=== PATIENT | male | born 1970 | race Caucasian/White ===

== ENCOUNTER 2023-08-15 08:51 | Inpatient (IN) | payer MEDICARE, MEDICAID, SELFPAY ==
--- NOTE | ~2023-08-15 | XR_ITS ---
EXAMINATION: XR LEFT ANKLE XR LEFT FOOT CLINICAL INFORMATION: Dropped object on foot. COMPARISON: None available. TECHNIQUE: AP, lateral, and oblique views of the left foot were obtained. AP and oblique views of the left ankle were obtained. FINDINGS: Comminuted displaced fracture involving the distal phalanx of the great toe. There is distraction of fracture fragments. There is marked soft tissue swelling. There is possible intra-articular extension medially to the interphalangeal joint. Moderate diffuse soft tissue swelling. Ankle mortise is maintained. The talar dome is intact. Plantar calcaneal spur. XR/XR foot LT min 3V IMPRESSION: Crush injury involving the distal phalanx of the great toe with possible medial intra-articular extension.
--- NOTE | ~2023-08-15 | XR_ITS ---
EXAMINATION: XR LEFT ANKLE XR LEFT FOOT CLINICAL INFORMATION: Dropped object on foot. COMPARISON: None available. TECHNIQUE: AP, lateral, and oblique views of the left foot were obtained. AP and oblique views of the left ankle were obtained. FINDINGS: Comminuted displaced fracture involving the distal phalanx of the great toe. There is distraction of fracture fragments. There is marked soft tissue swelling. There is possible intra-articular extension medially to the interphalangeal joint. Moderate diffuse soft tissue swelling. Ankle mortise is maintained. The talar dome is intact. Plantar calcaneal spur. XR/XR ankle LT min 3V IMPRESSION: Crush injury involving the distal phalanx of the great toe with possible medial intra-articular extension.
[2023-08-15 09:18] VITALS: BP 137/60; PULSE 74; RESP 18; TEMP 36.6; O2SAT 98; BMI 38.6
--- NOTE | 2023-08-15 10:06 | ED_ITS ---
HPI - Extremity Injury (Lower) General Chief Complaint: Extremity Injury, Lower Stated Complaint: L foot/leg inj Time Seen by Provider: 08/15/23 09:25 Source: patient Mode of arrival: ambulatory Limitations: no limitations History of Present Illness HPI Narrative: 52-year-old male with a past medical history of diabetes presents emergency department, with a son, for concerns for an infection in his left great toe. He reports on Tuesday he dropped a heavy object onto the toe and states that the ?bone popped out?. He states he ?put the bone back? but that when he pushes on the toe the bone protrudes through a chronic wound on the distal aspect of the toe. He reports he has a chronic diabetic ulcer at the base of the right great toe as well as a chronic ulcer on the left distal toe. He reports he has had a large amount drainage from the left ulcer as well as swelling. He reports he has been febrile over the weekend and states that pain is beginning to radiate up the calf. Related Data Allergies Allergy/AdvReac Type Severity Reaction Status Date / Time naproxen [From NAPROSYN] AdvReac Severe STOMACH Verified 08/15/23 09:17 UPSET lisinopril [LISINOPRIL] AdvReac Mild COUGH Verified 08/15/23 09:17 SEAFOOD Allergy Unknown ANAPHYLAXIS Uncoded 08/15/23 09:17 Review of Systems 2 Review of Systems: Yes all other systems are reviewed and are negative PMFSH Past Medical History Attestation statement: The following information was validated with the patient. Medical History (Updated 08/15/23 @ 12:52 by Lakia Rice NP) Asthma Severe obesity Mood disorder MAURI (obstructive sleep apnea) Type 2 diabetes mellitus HLD (hyperlipidemia) HTN (hypertension) Social History Social History Smoked in Last 30 Days: Yes Use of substances other than those prescribed or required for medical reasons: Yes Substance Use Type: Marijuana Advance Directives: No Advance Directives Information Provided: Yes Physical Exam 2 Vital Signs: Vital Signs: Last Vital Signs Temp 98.5 F 08/15/23 11:42 Pulse 63 08/15/23 11:42 Resp 18 08/15/23 11:42 BP 100/56 L 08/15/23 11:42 Pulse Ox 97 08/15/23 11:42 O2 Del Method Room Air 08/15/23 09:18 BMI result Body Mass Index 38.6 Nursing notes and vital signs reviewed. GENERAL APPEARANCE: A&0 x 4, generally well appearing, no acute distress HENMT: Normal to inspection, atraumatic, face symmetrical. Normal external ears, nose, and oropharynx clear. EYE: PERRLA, EOM intact, structures appear normal NECK: Supple without lymphadenopathy. No stiffness or restricted ROM. CHEST: Normal to inspection HEART: Normal rate and regular rhythm, normal S1/S2, no M/R/G LUNGS: LS CTA, moving air well. Able to speak in complete sentences. No crackles, wheezes, or rhonchi auscultated ABDOMEN: Soft, nontender, nondistended. Normal bowel sounds noted BACK: No CVAT, no obvious deformity EXTREMITIES: Decreased ROM of the left great toe with erythema, swelling and warmth. [place] clear/purulent discharge from the left distil ulcer on the great toe. Swelling of left calf noted with lymphangitis. 8 mm circular ulcer on base of right great toe. NEUROLOGICAL: Alert and oriented, moving all 4 extremities with equal strength. CN not formally tested but appearing grossly intact. Observed to ambulate with normal gait. Cognition normal SKIN: Warm and dry without any lesions, rash, or visible sores PSYCH: Cooperative, normal affect, normal thought process Course Reevaluation(s) Reevaluation #1: Dr Anthony contacted via tiger text for inpatient admission. DAPHNIE Mon hospitalist, in room to assess pt Medications Administered Discontinued Medications Generic Name Dose Route Start Last Admin Trade Name Freq PRN Reason Stop Dose Admin Ceftriaxone Sodium 2 gm/ 50 mls @ 100 mls/hr 08/15/23 10:11 08/15/23 11:34 Sodium Chloride IV 08/15/23 10:40 Infused ONCE ONE Infusion Vancomycin HCl 2,000 mg in 500 mls @ 250 mls/hr 08/15/23 10:30 08/15/23 11:36 Vancomycin/Ns IV 08/15/23 12:29 250 mls/hr ONCE ONE Administration Oxycodone HCl 10 mg 08/15/23 11:34 08/15/23 11:39 Oxycodone Hcl Immed Release 5 Mg Tablet PO 08/15/23 11:35 10 mg ONCE ONE Administration Medical Decision Making Medical Decision Making MDM Narrative: Old records reviewed for previous imaging, lab studies, ECGs, and notes. Additional HPI obtained from patient's son. Patient was assessed the emergency department with no acute distress or toxicity noted. Patient reports severe pain in the left great toe. Plan for septic workup including blood cultures an x-ray to assess for osteomyelitis as well as acute fracture. Vancomycin and ceftriaxone given. Oxycodone given for pain. Blood work showing evidence of leukocytosis with WBCs 11.9, anemia with H/H 12.5/38.7, no signs of thrombocytopenia. Patient's inflammatory markers elevated with CRP 3.41 and ESR 75. Lactic acid 1.2. X-ray left foot and ankle completed, which I have independently interpreted showing evidence of a crush injury of the great toe. Radiology findings showing a comminuted displaced fracture involving the distal phalanx of the great toe, marked soft tissue swelling, and possible intra-articular extension medially into the interphalangeal joint. Hospitalist, Dr. Anthony, contact her regarding patient's presentation and diagnostics with plan for inpatient admission. Differential Diagnosis Differential Diagnoses: The differential diagnosis associated with the presentation includes But not limited to fracture, dislocation, contusion, strain, sprain, osteomyelitis, sepsis Admission/Observation Consideration of admission/observation: Escalation of care including admission/observation considered Consult Healthcare Provider Management of the patient was discussed with: Hospitalist Lab Data MDM Lab Attestation statement: I reviewed the patient's lab results. 08/15/23 10:30 08/15/23 10:30 Labs: Lab Results 08/15/23 Range/Units 10:30 WBC 11.9 H (4.8-10.8) X10*3/uL RBC 4.51 L (4.60-5.80) X10*6/uL Hgb 12.5 L (14.0-18.0) g/dl Hct 38.7 L (42.0-52.0) % MCV 85.8 (80.0-98.0) fL MCH 27.7 (27.0-33.0) pg MCHC 32.3 (31.0-36.0) g/dl RDW 13.4 (11.0-16.0) % Plt Count 400 (160-400) X10*3/uL MPV 9.0 L (9.4-12.4) fL Immature Gran % (Auto) 0.6 H (0.0-0.4) % Neut % (Auto) 66.3 (45-73) % Lymph % (Auto) 20.9 (20-40) % [place] % (Auto) 8.0 (2-11) % Eos % (Auto) 3.1 (0-4) % Baso % (Auto) 1.1 (0-2) % Lymph # (Auto) 2.5 (1.2-4.9) X10*3/uL [place] # (Auto) 1.0 (0.1-1.2) X10*3/uL Eos # (Auto) 0.4 (0.0-0.4) X10*3/uL Baso # (Auto) 0.1 (0.0-0.2) X10*3/uL Abs Immat Gran (auto) 0.07 H (0.00-0.03) X10*3/uL Absolute Neuts (auto) 7.9 (2.0-8.3) x10*3/uL Absolute Nucleated RBC 0.000 (0.0-0.012) X10*3/uL Nucleated RBC % (auto) 0.0 (0.0-0.2) /100WBC ESR 79 H (0-15) MM/HR Sodium 136 (135-145) mmol/L Potassium 4.0 (3.3-5.1) mmol/L Chloride 103 (96-108) mmol/L Carbon Dioxide 25 (22-29) mmol/L Anion Gap 12 (12-20) BUN 25 H (9-16) mg/dL Creatinine 1.02 (0.5-1.4) mg/dL Estim Creat Clear Calc 106.7 Estimated GFR > 60 Random Glucose 183 H (60-115) mg/dL Lactic Acid 1.2 (0.5-2.0) mmol/L Calcium 9.2 (8.4-10.2) mg/dL C-Reactive Protein 3.41 H (< or = 0.50) mg/dL Independent Interpretation I performed an independent interpretation of an: Plain X-Ray Independent Historian Clinical information obtained from an independent historian. History obtained from or confirmed by: Other (Son) Chronic Conditions Patient?s care impacted by: Diabetes and Hypertension Discharge Plan Discharge Clinical Impression: Cellulitis of great toe, left, Crush injury of left foot Patient Disposition: Admitted As Inpatient
[2023-08-15 10:38] LABS: MANUAL DIFF FLAG NO
[2023-08-15 10:41] LABS: Basophils Absolute Auto 0.1 X10*3/uL (0.0-0.2); Basophils Percent Auto 1.1 % (0-2); Eosinophils Absolute Auto 0.4 X10*3/uL (0.0-0.4); Eosinophils Percent Auto 3.1 % (0-4); Hematocrit 38.7 % (42.0-52.0); Hemoglobin 12.5 g/dl (14.0-18.0); Imm Gran Abs Auto 0.07 X10*3/uL (0.00-0.03); Imm Gran Pct Auto 0.6 % (0.0-0.4); Lymphocytes Absolute Auto 2.5 X10*3/uL (1.2-4.9); Lymphocytes Percent Auto 20.9 % (20-40); Mean Corpuscular HGB Conc 32.3 g/dl (31.0-36.0); Mean Corpuscular Hemoglobin 27.7 pg (27.0-33.0); Mean Corpuscular Volume 85.8 fL (80.0-98.0); Neutrophils Absolute Auto 7.9 x10*3/uL (2.0-8.3); Neutrophils Percent Auto 66.3 % (45-73); Platelet Count 400 X10*3/uL (160-400); Red Blood Count 4.51 X10*6/uL (4.60-5.80); Red Cell Distribution Width 13.4 % (11.0-16.0); White Blood Count 11.9 X10*3/uL (4.8-10.8)
[2023-08-15 10:52] LABS: Lactic Acid 1.2 mmol/L (0.5-2.0)
[2023-08-15 10:54] LABS: Anion Gap 12 (12-20); Blood Urea Nitrogen 25 mg/dL (9-16); C Reactive Protein 3.41 mg/dL (< or = 0.50); Calcium 9.2 mg/dL (8.4-10.2); Carbon Dioxide 25 mmol/L (22-29); Chloride 103 mmol/L (96-108); Creatinine Clr Calc Pharmacy 106.7; Estimated Glomerular Filt Rate > 60; Glucose Random 183 mg/dL (60-115); Sodium 136 mmol/L (135-145)
[2023-08-15] MEDS: cefTRIAXone sodium 2 GM in 0.9 % Sodium Chloride 50 ML IV (11:01)
[2023-08-15 11:21] LABS: Erythrocyte Sedimentation Rate 79 MM/HR (0-15)
[2023-08-15] MEDS: vancomycin/NS 2,000 MG/500 ML PLAST..BAG 250 MG IV (11:36)
[2023-08-15] MEDS: oxyCODONE HCl Immed Release 5 MG TABLET 10 MG PO (11:39)
[2023-08-15 11:42] VITALS: BP 100/56; PULSE 63; RESP 18; TEMP 36.9; O2SAT 97
--- NOTE | 2023-08-15 11:42 | PC.NURSE ---
pt medicated per AUG for 1010 left big toe pain
--- NOTE | 2023-08-15 12:10 | PM.IMHP ---
History of Present Illness Date of Service: 08/15/23 Attending physician on admission: [facility] Chief Complaint: crush injury l great toe 52 year old male with history of insulin dependent type 2 diabetes, htn, hld, mood disorder, asthma, chronic diabetic ulcers of the great toes bilaterally, diabetic polyneuropathy, and mauri compliant with cpap presented to the ER earlier today for evaluation of crush injury to the L great toe sustained on tuesday after dropping a car cylinder directly on the toe. He reports he has had a chronic ulcer to the plantar surface of the L great toe ongoing 2 months and diabetic ulcer to the plantar surface R great toe ongoing about one month. Reports he was seen by pcp about a month ago and prescribed an antibiotic but does not recall the name. Since the injury tuesday, the left great toe has been very swollen, erythematous with open wound draining seropurulent drainage. Bone has been observed to protrude from the wound and the patient manually reduces this. He states the pain is now radiating up the medial aspect of the LLE. In the ER, vitals stable. Mild leukocytosis 11.9, no sepsis. Renal function and lytes normal. Lactic acid 1.2. CRP 3.41, ESR 79. In the ED, received 2g IV ctx, 2g vanco, and 10mg oxycodone. Review of Systems Review of Systems: General: No fevers, malaise, unintentional weight loss HEENT: No blurred vision, diplopia. No sore throat, nasal congestion, rhinorrhea, sinus pain, ear pain Cardiovascular: No chest pain, palpitations, or leg edema Respiratory: No shortness of breath, wheezing, cough GI: No abdominal pain, nausea, vomiting, diarrhea, constipation, melena, hematochezia : No dysuria, hematuria, increased urinary frequency, decreased urinary output MSK: No myalgia, back pain. +crush injury L great toe Neuro: No headaches, weakness, paresthesias Skin: No rashes. +chronic ulcers b/l great toes [facility] Medical History (Updated 08/15/23 @ 12:28 by DAPHNIE Griffin) Asthma Severe obesity Mood disorder MAURI (obstructive sleep apnea) Type 2 diabetes mellitus HLD (hyperlipidemia) HTN (hypertension) Social History Smoked in Last 30 Days: Yes Use of substances other than those prescribed or required for medical reasons: Yes Substance Use Type: Marijuana Advance Directives: No Advance Directives Information Provided: Yes Meds Allergies Allergy/AdvReac Type Severity Reaction Status Date / Time naproxen [From NAPROSYN] AdvReac Severe STOMACH Verified 08/15/23 09:17 UPSET lisinopril [LISINOPRIL] AdvReac Mild COUGH Verified 08/15/23 09:17 SEAFOOD Allergy Unknown ANAPHYLAXIS Uncoded 08/15/23 09:17 Active Medications: Current Medications Acetaminophen (Acetaminophen 325 Mg Tablet) 650 mg PO Q6H PRN PRN Reason: Pain, Mild (Pain Scale 1-3) Heparin Sodium (Porcine) (Heparin Sodium,Porcine 5,000 Unit/Ml Vial) 5,000 unit SUBCUT Q12H RANDALL Vancomycin HCl (Vancomycin/Ns) 2,000 mg in 500 mls @ 250 mls/hr IV ONCE ONE Stop: 08/15/23 12:29 Last Admin: 08/15/23 11:36 Dose: 250 mls/hr Ondansetron HCl (Ondansetron Hcl 4 Mg/2 Ml Vial) 4 mg IVPUSH Q8H PRN PRN Reason: Nausea and Vomiting Pharmacy Consult (Consult Rx Vancomycin Dosing) 1 each MISCELLANE DAILY PRN PRN Reason: Consult order Senna (Sennosides 8.6 Mg Tablet) 17.2 mg PO BEDTIME PRN PRN Reason: Constipation Sodium Chloride (0.9 % Sodium Chloride Flush 3 Ml Syringe) 3 ml IVFLUSH QSHIFT RANDALL Physical Exam Vital Signs and Narrative: Vital Signs: Last Vital Signs Temp 98.5 F 08/15/23 11:42 Pulse 63 08/15/23 11:42 Resp 18 08/15/23 11:42 BP 100/56 L 08/15/23 11:42 Pulse Ox 97 08/15/23 11:42 O2 Del Method Room Air 08/15/23 09:18 BMI result Body Mass Index 38.6 Constitutional - Awake and Alert, No apparent distress Eyes - PERRLA, EOMI Cardiovascular - S1S2, RRR, 1+ edema LLE, 2+ pedal pulses Respiratory - Normal lung expansion, Normal respiratory effort, No respiratory distress, CTA bilaterally Gastrointestinal - NT / ND; +BS; No rebound or guarding Extremities - no calf tenderness bilaterally, no swelling Skin - Warm/Dry. 1cm stage 3 ulceration of the plantar surface of the R great toe with surrounding callous. Open unstageable ulcer plantar surface L great toe with bone exposure about 1.5cm in diamter with purulent drainage and significant surrounding swelling with erythema Neurological - Alert & oriented x3, diminished sensation feet bilaterally Psychological - Appropriate affect R great toe L Great toe L great toe Results Labs 08/15/23 10:30 08/15/23 10:30 Labs: Laboratory Results - last 24 hr 08/15/23 10:30 MCV 85.8 MCH 27.7 MCHC 32.3 RDW 13.4 Plt Count 400 MPV 9.0 L Immature Gran % (Auto) 0.6 H Neut % (Auto) 66.3 Lymph % (Auto) 20.9 [place] % (Auto) 8.0 Eos % (Auto) 3.1 Baso % (Auto) 1.1 Lymph # (Auto) 2.5 [place] # (Auto) 1.0 Eos # (Auto) 0.4 Baso # (Auto) 0.1 Abs Immat Gran (auto) 0.07 H Absolute Neuts (auto) 7.9 Absolute Nucleated RBC 0.000 Nucleated RBC % (auto) 0.0 ESR 79 H Anion Gap 12 Estim Creat Clear Calc 106.7 Estimated GFR > 60 Random Glucose 183 H Lactic Acid 1.2 Calcium 9.2 C-Reactive Protein 3.41 H Imaging Radiologist's Impressions: Impressions Ankle X-Ray 08/15/23 09:40 IMPRESSION: Crush injury involving the distal phalanx of the great toe with possible medial intra-articular extension. Foot X-Ray 08/15/23 09:40 IMPRESSION: Crush injury involving the distal phalanx of the great toe with possible medial intra-articular extension. Assessment and Plan (1) Cellulitis of great toe, left: Status: Acute (2) Crush injury of left foot: Status: Acute Plan 52 year old male with history of insulin dependent type 2 diabetes, htn, hld, mood disorder, asthma, chronic diabetic ulcers of the great toes bilaterally, diabetic polyneuropathy, and mauri compliant with cpap admitted for further management of cellulitis and osteomyelitis L great toe following crush injury #Acute cellulitis L great toe s/p open crush injury in uncontrolled diabetic -likely requires amputation given open crush injury of distal phalynx L great toe -general surgery consultation -IV vanco and zosyn -Mild luekocytosis 11.9, no sepsis. -Follow cbc, cultures #Acute osteomyelitis L great toe -ESR 79, CRP, with open crush injury L great toe -ABX and surgery consult as above #Chronic stage 3 ulcer R great toe and unstageable ulcer L great toe related to uncontrolled type 2 diabetes -abx as above, rn triage consult #Insulin dependent type 2 diabetes -dose adjusted basal insulin -poc glucose, diabetic diet -humalog on ss #HTN -continue home meds #Mild intermittent asthma -no acute exacerbation -albuterol prn #Diabetic polyneuropathy -continue gabapentin #Chronic low back pain -continue home meds #MAURI -compliant with cpap DVT prophylaxis- heparin full code pt requires inpt stay at least 2 midnights for management of acute crush injury and cellulitis L great toe in uncontrolled type 2 diabetic requiring iv abx, expert consultation and probable amputation Quality Stroke Does the patient have a stroke diagnosis?: No VTE Prior VTE?: No VTE Risk Level:: Medical - moderate - high VTE Device Contraindication: Treatment Not Indicated VTE Drug Contraindication: N/A - Med Ordered
--- NOTE | 2023-08-15 12:27 | PHA.PROG ---
Admission Date/Time: Indication: Bone and Joint Weight in k.212 kg Adjusted body weight in Kg: [place] body weight in Kg: Obesity Dosing Indication % IBW: Serum Creatinine - Last 168 Hours 08/15/23 10:30 Creatinine 1.02 Estimated CrCl and GFR - Last 168 Hours 08/15/23 10:30 Estim Creat Clear Calc 106.7 Estimated GFR > 60 Vancomycin Loading Dose: 2000mg x 1 Current Vancomycin Dosing Regimen: 1250mg Q12H Vancomycin Monitoring using AUC goal of 400 - 600 range with trough as surrogate marker: 546 mg/L Date and Time for next Vancomycin Level to be drawn: 08/15 @2100 Pharmacist Comments on Vancomycin Plan: Obese model being used, predicted trough of 16.6 mg/L. Will continue to monitor renal function and adjust Vancomycin dosing will take advantage of [employer] as a clinical decision support tool that uses Bayesian modeling to calculate individual patient's pharmacokinetic parameters and forecast the patient's drug concentration time course with the target goal AUC 24 range of 400 - 600 mg/L/hr.
[2023-08-15 13:00] LABS: Estimated Average Glucose 177 mg/dL; Hemoglobin A1c % 7.8 % (<6.0)
--- NOTE | 2023-08-15 13:29 | PHA.MEDREC ---
Pharmacy Consult ? Medication Reconciliation Pharmacy has completed the medication reconciliation. Spoke to patient and confirmed medication list.
[2023-08-15] MEDS: Heparin Sodium,Porcine 5,000 UNIT/ML VIAL 5000 UNIT SUBCUT (13:54)
[2023-08-15] MEDS: Piperacillin Sodium/Tazobactam 4.5 GM in 0.9 % Sodium Chloride 100 ML IV ×2 (14:14→20:40)
[2023-08-15] MEDS: 0.9 % Sodium Chloride Flush 3 ML SYRINGE IVFLUSH (16:16)
[2023-08-15 16:20] VITALS: BP 140/74; PULSE 68; RESP 18; TEMP 36.5; O2SAT 99
--- NOTE | 2023-08-15 16:51 | P.CONGS_ITS ---
History of Present Illness Consult details Consult date: 08/15/23 Narrative: 52-year-old male referred for toe ulcers. He has a long history of diabetes. He has had this ulcer on the plantar aspect the left big toe for what he describes as may be about 5 months already. He says that this does not heal at all. He has another ulcer on the plantar aspect of the right big toe as well for about 1-2 months. He says that he had been on antibiotics recently as prescribed by his primary care physician without any change in the appearance of his ulcers About 3 days ago, a heavy object fell on his foot left, especially the left big toe. Since then, he has had severe pain and swelling of the entire left foot. He says that the big toe has been a lot more swollen as well. He notes redness of the area. He thought that he may have had some chills at home yesterday. He also has history of neuropathy, obesity and obstructive sleep apnea. Review of Systems 2 Constitutional: Constitutional: Reports chills and Denies fever(s) Cardiovascular: Cardiovascular: Denies chest pain, Denies dyspnea and Denies dyspnea on exertion Respiratory: Respiratory: Denies cough, Denies dyspnea and Denies dyspnea on exertion Comments: Has sleep apnea, uses CPAP Gastrointestinal: Gastrointestinal: Denies hematochezia and Denies change in bowel habits Genitourinary: Genitourinary: Denies hematuria and Denies difficulty urinating Musculoskeletal: Musculoskeletal: Denies back pain and Denies limited range of motion Neurologic: Denies focal weakness and Denies convulsions Psychiatric: Psychiatric: Denies depression and Denies mood swings PMFSH Past Medical History Medical History Ulcer of great toe Asthma Severe obesity Mood disorder MAURI (obstructive sleep apnea) Type 2 diabetes mellitus HLD (hyperlipidemia) HTN (hypertension) Social History Social History Housing: Apartment 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 Tobacco Use Status: Current everyday Tobacco user Tobacco use type: Cigarette Cigarette Packs Per Day: 1 Cigarettes Per Day: 20.0 Smoked in Last 30 Days: Yes Patient Interested in Nicotine Replacement: Yes Patient Given Instructions on How to Stop Smoking: Yes Date Education Initiated: 08/15/23 Second Hand Smoke Exposure: No Use of substances other than those prescribed or required for medical reasons: Yes Substance Use Type: Marijuana Substance Use Frequency: Daily Currently Displaying Signs/Symptoms of Drug Intoxication Withdrawal: No Are you DNR?: No Advance Directives: No Advance Directives Information Provided: Yes Advance Directives on File: No Recently lost weight without trying: No Nutrition Risks: No Nutritional Risk service: No Meds Allergies Allergy/AdvReac Type Severity Reaction Status Date / Time naproxen [From NAPROSYN] AdvReac Severe STOMACH Verified 08/15/23 09:17 UPSET lisinopril [LISINOPRIL] AdvReac Mild COUGH Verified 08/15/23 09:17 SEAFOOD Allergy Unknown ANAPHYLAXIS Uncoded 08/15/23 09:17 Active Medications: Current Medications Acetaminophen (Acetaminophen 325 Mg Tablet) 650 mg PO Q6H PRN PRN Reason: Pain, Mild (Pain Scale 1-3) Dextrose (Dextrose 50 % 25 Gm/50 Ml Syringe) 25 gm IVPUSH Q15M PRN; Protocol PRN Reason: per Hypoglycemia Standing Ord. Glucose (Glucose Gel 15 Gm Gel..Gram.) 15 gm PO Q15M PRN; Protocol PRN Reason: per Hypoglycemia Standing Ord. Heparin Sodium (Porcine) (Heparin Sodium,Porcine 5,000 Unit/Ml Vial) 5,000 unit SUBCUT Q12H [facility] Last Admin: 08/15/23 13:54 Dose: 5,000 unit Piperacillin Sod/Tazobactam (Sod 4.5 gm/ Sodium Chloride) 100 mls @ 200 mls/hr IV Q6H [facility] Last Infusion: 08/15/23 15:03 Dose: Infused Vancomycin HCl 1,250 mg/ (Sodium Chloride) 250 mls @ 166.667 mls/hr IV Q12H [facility] Insulin Human Lispro (Insulin Lispro 100 Unit/Ml 3 Ml Vial) 0 unit SUBCUT QIDACHS [facility]; Protocol Morphine Sulfate (Morphine Sulfate 2 Mg/Ml Cartridge) 2 mg IVPUSH Q4H PRN; Protocol PRN Reason: Pain, Severe (Pain Scale 7-10) Ondansetron HCl (Ondansetron Hcl 4 Mg/2 Ml Vial) 4 mg IVPUSH Q8H PRN PRN Reason: Nausea and Vomiting Oxycodone HCl (Oxycodone Hcl Immed Release 5 Mg Tablet) 5 mg PO Q6H PRN PRN Reason: Pain, Moderate(Pain Scale 4-6) Pharmacy Consult (Consult Rx Vancomycin Dosing) 1 each MISCELLANE DAILY PRN PRN Reason: Consult order Senna (Sennosides 8.6 Mg Tablet) 17.2 mg PO BEDTIME PRN PRN Reason: Constipation Sodium Chloride (0.9 % Sodium Chloride Flush 3 Ml Sy[facility]) [facility] Last Admin: 08/15/23 16:16 Dose: 3 ml Home Medications Medication Instructions Recorded Confirmed Last Taken Type albuterol sulfate 90 mcg/actuation 2 puff inhalation Q4H PRN Wheezing 08/15/23 08/15/23 Unknown History aerosol inhaler (Ventolin HFA) atorvastatin 80 mg tablet 80 mg PO BEDTIME 08/15/23 08/15/23 08/14/23 History baclofen 10 mg tablet 10 mg PO TID 08/15/23 08/15/23 08/14/23 History carvedilol 12.5 mg tablet 12.5 mg PO BIDWM 08/15/23 08/15/23 08/14/23 History cetirizine 10 mg tablet 10 mg PO DAILY 08/15/23 08/15/23 08/14/23 History chlorthalidone 50 mg tablet 50 mg PO QAM 08/15/23 08/15/23 08/14/23 History dulaglutide 4.5 mg/0.5 mL 4.5 mg subcut QWEEK 08/15/23 08/15/23 08/12/23 History subcutaneous pen injector (Trulicity) empagliflozin 25 mg tablet 25 mg PO QAM 08/15/23 08/15/23 08/14/23 History (Jardiance) epinephrine 0.3 mg/0.3 mL 0.3 mg IM DIRECTED PRN Allergic 08/15/23 08/15/23 Unknown History injection, auto-injector Reaction fluticasone propionate 50 1 spray intranasal BID PRN Allergy 08/15/23 08/15/23 Unknown History mcg/actuation nasal Symptoms spray,suspension gabapentin 800 mg tablet 800 mg PO TID 08/15/23 08/15/23 08/14/23 History hydralazine 50 mg tablet 50 mg PO TID 08/15/23 08/15/23 08/14/23 History insulin aspart 10 unit subcut TIDWM 08/15/23 08/15/23 08/14/23 History (niacinamide)(U-100) 100 unit/mL(3 mL) subcutaneous pen (Fiasp FlexTouch U-100 Insulin) insulin glargine 100 unit/mL (3 60 unit subcut BEDTIME 08/15/23 08/15/23 08/14/23 History mL) subcutaneous pen (Basaglar KwikPen U-100 Insulin) losartan 100 mg tablet 100 mg PO QAM 08/15/23 08/15/23 08/14/23 History magnesium oxide 400 mg (241.3 mg 400 mg PO QAM 08/15/23 08/15/23 08/14/23 History magnesium) tablet nicotine 21 mg/24 hr daily 1 patch transdermal DAILY 08/15/23 08/15/23 08/14/23 History transdermal patch oxycodone 5 mg tablet 5 mg PO Q6H PRN severe pain 08/15/23 08/15/23 08/14/23 History spironolactone 25 mg tablet 25 mg PO QAM 08/15/23 08/15/23 08/14/23 History tamsulosin 0.4 mg capsule 0.4 mg PO QAM 08/15/23 08/15/23 08/14/23 History Physical Exam 2 Vital Signs: Vital Signs: Last Vital Signs Temp 97.7 F 08/15/23 16:20 Pulse 68 08/15/23 16:20 Resp 18 08/15/23 16:20 BP 140/74 H 08/15/23 16:20 Pulse Ox 99 08/15/23 16:20 O2 Del Method Room Air 08/15/23 16:20 BMI result Body Mass Index 38.6 Const: Other: Appears overweight General: comfortable and no acute distress Orientation/consciousness: p atient oriented x3 Neck: Neck: Yes no lymphadenopathy Resp: Auscultation: clear to auscultation bilaterally Cardio: Rhythm: regular rhythm GI: Palpation (GI): Soft to palpation, nontender and no guarding Neuro: General: patient oriented x3 Extrem: Other: Edema of the left foot and ankle, left big toe plantar aspect with an ulcer, about 2.5 cm in diameter, clean, no pus, some redness of the big toe and the left foot Right big toe with note of an ulcer as well, about 1 cm in diameter, clean, no pus at this time, no tunneling, no cellulitis Results Labs 08/19/23 05:15 08/19/23 05:15 Labs: Abnormal lab results 08/15/23 Range/Units 10:30 WBC 11.9 H (4.8-10.8) X10*3/uL RBC 4.51 L (4.60-5.80) X10*6/uL Hgb 12.5 L (14.0-18.0) g/dl Hct 38.7 L (42.0-52.0) % MPV 9.0 L (9.4-12.4) fL Immature Gran % (Auto) 0.6 H (0.0-0.4) % Abs Immat Gran (auto) 0.07 H (0.00-0.03) X10*3/uL ESR 79 H (0-15) MM/HR BUN 25 H (9-16) mg/dL Random Glucose 183 H (60-115) mg/dL Hemoglobin A1c % 7.8 H (<6.0) % C-Reactive Protein 3.41 H (< or = 0.50) mg/dL Short CBC 08/15/23 Range/Units 10:30 WBC 11.9 H (4.8-10.8) X10*3/uL Hgb 12.5 L (14.0-18.0) g/dl Hct 38.7 L (42.0-52.0) % Plt Count 400 (160-400) X10*3/uL BMP 08/15/23 10:30 Sodium 136 Potassium 4.0 Chloride 103 Carbon Dioxide 25 BUN 25 H Creatinine 1.02 Calcium 9.2 All other labs normal. Imaging Additional studies: Laboratory Results WBC 11.9 X10*3/uL (4.8-10.8) H 08/15/23 10:30 RBC 4.51 X10*6/uL (4.60-5.80) L 08/15/23 10:30 Hgb 12.5 g/dl (14.0-18.0) L 08/15/23 10:30 Hct 38.7 % (42.0-52.0) L 08/15/23 10:30 MCV 85.8 fL (80.0-98.0) 08/15/23 10:30 MCH 27.7 pg (27.0-33.0) 08/15/23 10:30 MCHC 32.3 g/dl (31.0-36.0) 08/15/23 10:30 RDW 13.4 % (11.0-16.0) 08/15/23 10:30 Plt Count 400 X10*3/uL (160-400) 08/15/23 10:30 MPV 9.0 fL (9.4-12.4) L 08/15/23 10:30 Immature Gran % (Auto) 0.6 % (0.0-0.4) H 08/15/23 10:30 Neut % (Auto) 66.3 % (45-73) 08/15/23 10:30 Lymph % (Auto) 20.9 % (20-40) 08/15/23 10:30 [place] % (Auto) 8.0 % (2-11) 08/15/23 10:30 Eos % (Auto) 3.1 % (0-4) 08/15/23 10:30 Baso % (Auto) 1.1 % (0-2) 08/15/23 10:30 Lymph # (Auto) 2.5 X10*3/uL (1.2-4.9) 08/15/23 10:30 [place] # (Auto) 1.0 X10*3/uL (0.1-1.2) 08/15/23 10:30 Eos # (Auto) 0.4 X10*3/uL (0.0-0.4) 08/15/23 10:30 Baso # (Auto) 0.1 X10*3/uL (0.0-0.2) 08/15/23 10:30 Abs Immat Gran (auto) 0.07 X10*3/uL (0.00-0.03) H 08/15/23 10:30 Absolute Neuts (auto) 7.9 x10*3/uL (2.0-8.3) 08/15/23 10:30 Absolute Nucleated RBC 0.000 X10*3/uL (0.0-0.012) 08/15/23 10:30 Nucleated RBC % (auto) 0.0 /100WBC (0.0-0.2) 08/15/23 10:30 ESR 79 MM/HR (0-15) H 08/15/23 10:30 Sodium 136 mmol/L (135-145) 08/15/23 10:30 Potassium 4.0 mmol/L (3.3-5.1) 08/15/23 10:30 Chloride 103 mmol/L (96-108) 08/15/23 10:30 Carbon Dioxide 25 mmol/L (22-29) 08/15/23 10:30 Anion Gap 12 (12-20) 08/15/23 10:30 BUN 25 mg/dL (9-16) H 08/15/23 10:30 Creatinine 1.02 mg/dL (0.5-1.4) 08/15/23 10:30 Estim Creat Clear Calc 106.7 08/15/23 10:30 Estimated GFR > 60 08/15/23 10:30 Random Glucose 183 mg/dL (60-115) H 08/15/23 10:30 Estimat Average Glucose 177 mg/dL 08/15/23 10:30 Hemoglobin A1c % 7.8 % (<6.0) H 08/15/23 10:30 Lactic Acid 1.2 mmol/L (0.5-2.0) 08/15/23 10:30 Calcium 9.2 mg/dL (8.4-10.2) 08/15/23 10:30 C-Reactive Protein 3.41 mg/dL (< or = 0.50) H 08/15/23 10:30 Impressions Ankle X-Ray 08/15/23 09:40 IMPRESSION: Crush injury involving the distal phalanx of the great toe with possible medial intra-articular extension. Foot X-Ray 08/15/23 09:40 IMPRESSION: Crush injury involving the distal phalanx of the great toe with possible medial intra-articular extension. Assessment and Plan (1) Ulcer of great toe: Status: Acute He has chronic ulcers on both big toes at the plantar aspect. He has had this left big toe ulcer for a much longer period of time. This seemed to have worsened after he had a crush injury on the foot last week. He states that he feels that this ulcer has not improved at all the past several months. He wants this toe amputated even in the abscence of osteomyelitis on imaging. I explained to him that he does have a crush injury of the distal phalanx on the big toe with fracture. However, there is no evidence of cellulitis at this time He seems to really be leaning towards an amputation of the left big toe because of his chronic ulcer which has not healed at all for several months. We will allow the edema to subside. We will give him IV antibiotics because of the cellulitis. We will re-evaluate him tomorrow. He understands the plan well and is comfortable with this His blood sugars should be followed as well. Procedures Date of Service Date of Service: 08/19/23
[2023-08-15 17:21] LABS: Glucose, Whole Blood 195 mg/dL (60-115)
[2023-08-15] MEDS: Morphine Sulfate 2 MG/ML CARTRIDGE IVPUSH (17:46)
[2023-08-15 19:16] LABS: Glucose, Whole Blood 157 mg/dL (60-115)
[2023-08-15] MEDS: Insulin Lispro 100 UNIT/ML 3 ML VIAL SUBCUT (19:21)
[2023-08-15] MEDS: oxyCODONE HCl Immed Release 5 MG TABLET PO (20:40)
[2023-08-15 21:06] VITALS: BP 154/75; PULSE 70; RESP 17; TEMP 37; O2SAT 97
[2023-08-15 22:31] LABS: Glucose, Whole Blood 185 mg/dL (60-115)
[2023-08-15 22:40] VITALS: BP 175/86; PULSE 70; RESP 18; TEMP 36.3; O2SAT 97
[2023-08-15] MEDS: vancomycin HCL 1,250 MG in 0.9 % Sodium Chloride 250 ML 166.67 MG IV (22:48)
[2023-08-16] VITALS (7 sets, daily range): BP systolic 137–157; BP diastolic 11–91; PULSE 69–79; RESP 16–20; TEMP 36.2–36.8; O2SAT 96–97
[2023-08-16] MEDS: 0.9 % Sodium Chloride Flush 3 ML SYRINGE IVFLUSH ×4 (00:23→17:35)
[2023-08-16] MEDS: Heparin Sodium,Porcine 5,000 UNIT/ML VIAL 5000 UNIT SUBCUT ×3 (00:28→23:43)
[2023-08-16] MEDS: Morphine Sulfate 2 MG/ML CARTRIDGE IVPUSH ×5 (00:37→18:40)
[2023-08-16] MEDS: Piperacillin Sodium/Tazobactam 4.5 GM in 0.9 % Sodium Chloride 100 ML IV ×4 (02:43→20:21)
[2023-08-16 06:08] LABS: MANUAL DIFF FLAG NO
[2023-08-16 06:30] LABS: Basophils Absolute Auto 0.1 X10*3/uL (0.0-0.2); Basophils Percent Auto 0.9 % (0-2); Eosinophils Absolute Auto 0.5 X10*3/uL (0.0-0.4); Eosinophils Percent Auto 5.4 % (0-4); Hematocrit 40.1 % (42.0-52.0); Imm Gran Abs Auto 0.05 X10*3/uL (0.00-0.03); Imm Gran Pct Auto 0.6 % (0.0-0.4); Lymphocytes Absolute Auto 1.6 X10*3/uL (1.2-4.9); Lymphocytes Percent Auto 18.3 % (20-40); Mean Corpuscular HGB Conc 32.4 g/dl (31.0-36.0); Mean Corpuscular Hemoglobin 27.8 pg (27.0-33.0); Mean Corpuscular Volume 85.9 fL (80.0-98.0); Mean Platelet Volume 9.1 fL (9.4-12.4); Monocytes Absolute Auto 0.8 X10*3/uL (0.1-1.2); Monocytes Percent Auto 8.9 % (2-11); Neutrophils Absolute Auto 5.7 x10*3/uL (2.0-8.3); Neutrophils Percent Auto 65.9 % (45-73); Platelet Count 390 X10*3/uL (160-400); Red Blood Count 4.67 X10*6/uL (4.60-5.80); Red Cell Distribution Width 13.4 % (11.0-16.0); White Blood Count 8.6 X10*3/uL (4.8-10.8)
[2023-08-16 06:34] LABS: Anion Gap 13 (12-20); Blood Urea Nitrogen 18 mg/dL (9-16); Calcium 9.1 mg/dL (8.4-10.2); Carbon Dioxide 26 mmol/L (22-29); Chloride 101 mmol/L (96-108); Creatinine Clr Calc Pharmacy 117.1; Estimated Glomerular Filt Rate > 60; Glucose Random 171 mg/dL (60-115); Potassium 4.1 mmol/L (3.3-5.1); Sodium 136 mmol/L (135-145)
[2023-08-16 07:44] LABS: Glucose, Whole Blood 177 mg/dL (60-115)
[2023-08-16] MEDS: ondansetron HCL 4 MG/2 ML VIAL IVPUSH ×2 (08:13→18:44)
[2023-08-16] MEDS: Insulin Lispro 100 UNIT/ML 3 ML VIAL SUBCUT ×4 (09:03→21:06)
--- NOTE | 2023-08-16 09:03 | P.PNGS_ITS ---
Subjective Subjective Date of Service: 08/16/23 Interval history: Denies new complaints Some pain on the left foot No fever Physical Exam 2 Vital Signs: Vital Signs: Last Vital Signs Temp 97.1 F 08/16/23 07:39 Pulse 79 08/16/23 07:39 Resp 18 08/16/23 07:39 BP 137/91 H 08/16/23 07:39 Pulse Ox 97 08/16/23 07:39 O2 Del Method Room Air 08/16/23 07:39 BMI result Body Mass Index 38.6 Const: General: comfortable and no acute distress Resp: Effort & Inspection: normal respiratory effort Cardio: Rate: regular rate Extrem: Other: Edema of the left foot much improved, some redness but better, plantar ulcer on the big toe noted, clean; right big toe swollen Plantar ulcer on the left big toe seen, seen, no pus Objective Data Active Medications Acetaminophen (Acetaminophen 325 Mg Tablet) 650 mg PO Q6H PRN PRN Reason: Pain, Mild (Pain Scale 1-3) Dextrose (Dextrose 50 % 25 Gm/50 Ml Syringe) 25 gm IVPUSH Q15M PRN; Protocol PRN Reason: per Hypoglycemia Standing Ord. Glucose (Glucose Gel 15 Gm Gel..Gram.) 15 gm PO Q15M PRN; Protocol PRN Reason: per Hypoglycemia Standing Ord. Heparin Sodium (Porcine) (Heparin Sodium,Porcine 5,000 Unit/Ml Vial) 5,000 unit SUBCUT Q12H [facility] Last Admin: 08/16/23 00:28 Dose: 5,000 unit Documented By: CALLUM Piperacillin Sod/Tazobactam (Sod 4.5 gm/ Sodium Chloride) 100 mls @ 200 mls/hr IV Q6H [facility] Last Infusion: 08/16/23 08:41 Dose: Infused Documented By: CASANDRA Vancomycin HCl 1,250 mg/ (Sodium Chloride) 250 mls @ 166.667 mls/hr IV Q12H [facility] Last Infusion: 08/16/23 00:20 Dose: Infused Documented By: CALLUM Insulin Human Lispro (Insulin Lispro 100 Unit/Ml 3 Ml Vial) 0 unit SUBCUT QIDACHS [facility]; Protocol Last Admin: 08/15/23 22:33 Dose: Not Given Documented By: DIAZDEM Non-Admin Reason: 2 units given at ED Morphine Sulfate (Morphine Sulfate 2 Mg/Ml Cartridge) 2 mg IVPUSH Q4H PRN; Protocol PRN Reason: Pain, Severe (Pain Scale 7-10) Last Admin: 08/16/23 08:09 Dose: 2 mg Documented By: CASANDRA Ondansetron HCl (Ondansetron Hcl 4 Mg/2 Ml Vial) 4 mg IVPUSH Q8H PRN PRN Reason: Nausea and Vomiting Last Admin: 08/16/23 08:13 Dose: 4 mg Documented By: CASANDRA Oxycodone HCl (Oxycodone Hcl Immed Release 5 Mg Tablet) 5 mg PO Q6H PRN PRN Reason: Pain, Moderate(Pain Scale 4-6) Last Admin: 08/15/23 20:40 Dose: 5 mg Documented By: MARINA Pharmacy Consult (Consult Rx Vancomycin Dosing) 1 each MISCELLANE DAILY PRN PRN Reason: Consult order Senna (Sennosides 8.6 Mg Tablet) 17.2 mg PO BEDTIME PRN PRN Reason: Constipation Sodium Chloride (0.9 % Sodium Chloride Flush 3 Ml [facility]) [facility] Last Admin: 08/16/23 00:23 Dose: 3 ml Documented By: CALLUM Labs 08/16/23 05:26 08/16/23 05:26 Labs: Laboratory Results - last 24 hr 08/15/23 08/15/23 08/15/23 10:30 17:18 19:12 MCV 85.8 MCH 27.7 MCHC 32.3 RDW 13.4 Plt Count 400 MPV 9.0 L Immature Gran % (Auto) 0.6 H Neut % (Auto) 66.3 Lymph % (Auto) 20.9 [place] % (Auto) 8.0 Eos % (Auto) 3.1 Baso % (Auto) 1.1 Lymph # (Auto) 2.5 [place] # (Auto) 1.0 Eos # (Auto) 0.4 Baso # (Auto) 0.1 Abs Immat Gran (auto) 0.07 H Absolute Neuts (auto) 7.9 Absolute Nucleated RBC 0.000 Nucleated RBC % (auto) 0.0 ESR 79 H Anion Gap 12 Estim Creat Clear Calc 106.7 Estimated GFR > 60 POC Glucose 195 H 157 H Random Glucose 183 H Estimat Average Glucose 177 Hemoglobin A1c % 7.8 H Lactic Acid 1.2 Calcium 9.2 C-Reactive Protein 3.41 H 08/15/23 08/16/23 08/16/23 22:27 05:26 07:38 MCV 85.9 MCH 27.8 MCHC 32.4 RDW 13.4 Plt Count 390 MPV 9.1 L Immature Gran % (Auto) 0.6 H Neut % (Auto) 65.9 Lymph % (Auto) 18.3 L [place] % (Auto) 8.9 Eos % (Auto) 5.4 H Baso % (Auto) 0.9 Lymph # (Auto) 1.6 [place] # (Auto) 0.8 Eos # (Auto) 0.5 H Baso # (Auto) 0.1 Abs Immat Gran (auto) 0.05 H Absolute Neuts (auto) 5.7 Absolute Nucleated RBC 0.000 Nucleated RBC % (auto) 0.0 ESR Anion Gap 13 Estim Creat Clear Calc 117.1 Estimated GFR > 60 POC Glucose 185 H 177 H Random Glucose 171 H Estimat Average Glucose Hemoglobin A1c % Lactic Acid Calcium 9.1 C-Reactive Protein Procedures Date of Service Date of Service: 08/16/23 Progress Note: A&P Assessment and plan (1) Ulcer of great toe: Status: Acute Assessment and Plan: He has this nonhealing ulcer of the left big toe, worsened after a crush injury Cellulitis and edema is actually better Patient however mentioned that he wants mutation with the big toe as this has not healed at all the past few months Currently on IV antibiotics We will discuss with him his options later and if he wants to proceed with amputation, we will schedule this week Time Spent With Patient Time: Total time managing care of this patient today ____ minutes. Quality Stroke Does the patient have a stroke diagnosis?: No VTE Prior VTE?: No VTE Risk Level:: Medical - moderate - high VTE Device Contraindication: Treatment Not Indicated VTE Drug Contraindication: N/A - Med Ordered
[2023-08-16] MEDS: vancomycin HCL 1,250 MG in 0.9 % Sodium Chloride 250 ML 166.67 MG IV ×2 (11:39→23:41)
--- NOTE | 2023-08-16 12:56 | MHC.CM.PN ---
IMM 08/16/23 S/P crush injury with suspected Osteo. Patient is independent with all functional mobility. He is a single parent to his 11 year old son. He declined the offer to document a HCP. DP home self care. He will arrange for transportation home.
--- NOTE | 2023-08-16 13:45 | HO.PM.IMPN ---
Subjective Subjective Date of Service: 08/16/23 Physical Exam Vital Signs: Vital Signs: Last Vital Signs Temp 97.1 F 08/16/23 07:39 Pulse 79 08/16/23 07:39 Resp 18 08/16/23 07:39 BP 137/91 H 08/16/23 07:39 Pulse Ox 97 08/16/23 07:39 O2 Del Method Room Air 08/16/23 07:39 BMI result Body Mass Index 38.6 Objective Data Active Medications Acetaminophen (Acetaminophen 325 Mg Tablet) 650 mg PO Q6H PRN PRN Reason: Pain, Mild (Pain Scale 1-3) Dextrose (Dextrose 50 % 25 Gm/50 Ml Syringe) 25 gm IVPUSH Q15M PRN; Protocol PRN Reason: per Hypoglycemia Standing Ord. Glucose (Glucose Gel 15 Gm Gel..Gram.) 15 gm PO Q15M PRN; Protocol PRN Reason: per Hypoglycemia Standing Ord. Heparin Sodium (Porcine) (Heparin Sodium,Porcine 5,000 Unit/Ml Vial) 5,000 unit SUBCUT Q12H [facility] Last Admin: 08/16/23 11:39 Dose: 5,000 unit Documented By: CASANDRA Piperacillin Sod/Tazobactam (Sod 4.5 gm/ Sodium Chloride) 100 mls @ 200 mls/hr IV Q6H [facility] Last Infusion: 08/16/23 08:41 Dose: Infused Documented By: CASANDRA Vancomycin HCl 1,250 mg/ (Sodium Chloride) 250 mls @ 166.667 mls/hr IV Q12H [facility] Last Infusion: 08/16/23 13:10 Dose: Infused Documented By: CASANDRA Insulin Human Lispro (Insulin Lispro 100 Unit/Ml 3 Ml Vial) 0 unit SUBCUT QIDACHS [facility]; Protocol Last Admin: 08/16/23 11:42 Dose: 2 unit Documented By: CASANDRA Morphine Sulfate (Morphine Sulfate 2 Mg/Ml Cartridge) 2 mg IVPUSH Q4H PRN; Protocol PRN Reason: Pain, Severe (Pain Scale 7-10) Last Admin: 08/16/23 12:28 Dose: 2 mg Documented By: CASANDRA Ondansetron HCl (Ondansetron Hcl 4 Mg/2 Ml Vial) 4 mg IVPUSH Q8H PRN PRN Reason: Nausea and Vomiting Last Admin: 08/16/23 08:13 Dose: 4 mg Documented By: CASANDRA Oxycodone HCl (Oxycodone Hcl Immed Release 5 Mg Tablet) 5 mg PO Q6H PRN PRN Reason: Pain, Moderate(Pain Scale 4-6) Last Admin: 08/15/23 20:40 Dose: 5 mg Documented By: MARINA Pharmacy Consult (Consult Rx Vancomycin Dosing) 1 each MISCELLANE DAILY PRN PRN Reason: Consult order Senna (Sennosides 8.6 Mg Tablet) 17.2 mg PO BEDTIME PRN PRN Reason: Constipation Sodium Chloride (0.9 % Sodium Chloride Flush 3 Ml Syringe) 3 ml IVFLUSH QSHIFT [facility] Last Admin: 08/16/23 09:03 Dose: 3 ml Documented By: CASANDRA Labs 08/16/23 05:26 08/16/23 05:26 Labs: Laboratory Results - last 24 hr 08/15/23 08/15/23 08/15/23 17:18 19:12 22:27 MCV MCH MCHC RDW Plt Count MPV Immature Gran % (Auto) Neut % (Auto) Lymph % (Auto) [place] % (Auto) Eos % (Auto) Baso % (Auto) Lymph # (Auto) [place] # (Auto) Eos # (Auto) Baso # (Auto) Abs Immat Gran (auto) Absolute Neuts (auto) Absolute Nucleated RBC Nucleated RBC % (auto) Anion Gap Estim Creat Clear Calc Estimated GFR POC Glucose 195 H 157 H 185 H Random Glucose Calcium 08/16/23 08/16/23 05:26 07:38 MCV 85.9 MCH 27.8 MCHC 32.4 RDW 13.4 Plt Count 390 MPV 9.1 L Immature Gran % (Auto) 0.6 H Neut % (Auto) 65.9 Lymph % (Auto) 18.3 L [place] % (Auto) 8.9 Eos % (Auto) 5.4 H Baso % (Auto) 0.9 Lymph # (Auto) 1.6 [place] # (Auto) 0.8 Eos # (Auto) 0.5 H Baso # (Auto) 0.1 Abs Immat Gran (auto) 0.05 H Absolute Neuts (auto) 5.7 Absolute Nucleated RBC 0.000 Nucleated RBC % (auto) 0.0 Anion Gap 13 Estim Creat Clear Calc 117.1 Estimated GFR > 60 POC Glucose 177 H Random Glucose 171 H Calcium 9.1 Microbiology Microbiology Results: Microbiology 08/15/23 10:37 Blood Culture - Preliminary Blood - Venous No growth after 24 hours. 08/15/23 10:30 Blood Culture - Preliminary Blood - Venous No growth after 24 hours. Assessment and Plan (1) Ulcer of great toe: Status: Acute Plan 52 year old male with history of insulin dependent type 2 diabetes, htn, hld, mood disorder, asthma, chronic diabetic ulcers of the great toes bilaterally, diabetic polyneuropathy, and jenelle compliant with cpap admitted for further management of cellulitis and osteomyelitis L great toe following crush injury Acute cellulitisand osteomyelitis L great toe s/p open crush injury in uncontrolled diabetic general surgery consultation> plan for amputation tommorrow, NPO after midnight continue IV vanco and zosyn Pain management Chronic stage 3 ulcer R great toe and unstageable ulcer L great toe related to uncontrolled type 2 diabetes 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 Irving full code continue hospital stay for management of acute crush injury and cellulitis L great toe in uncontrolled type 2 diabetic requiring iv abx, expert consultation and probable amputation Quality Stroke Does the patient have a stroke diagnosis?: No VTE Prior VTE?: No VTE Risk Level:: Medical - moderate - high VTE Device Contraindication: Treatment Not Indicated VTE Drug Contraindication: N/A - Med Ordered
--- NOTE | 2023-08-16 14:44 | PM.EVENT ---
Event Note Date of Service: 08/17/23 Event Note: the patient says he really wants to proceed with amputation of the left big toe he states he has had pain on this toe for several months now even before the injury last Tuesday he says the toe ulcer has not healed at all and has been affecting his lifestyle he understands the risks including but not limited to bleeding, infections, poor healing, postop pain he has given consent plan to do toe amp, left big toe tomorrow Time Spent With Patient Time: Total time managing care of this patient today ____ minutes.
[2023-08-16] MEDS: oxyCODONE HCl Immed Release 5 MG TABLET PO (15:55)
--- NOTE | 2023-08-16 16:04 | HO.WOUND ---
Wound Consult: Initial 52yr old?M admitted to [facility] on 08/15/23 - See progress notes and H&P for detailed history.? Wound consult placed for Bilateral Great Toe wounds - Diabetic wounds.? Patient agreeable to assessment and photo documentation.? Arrival to bedside I attempted to discuss the patients wounds and his current treartment. He reports not wanting to talk and answer any questions - he appeared irritated and frustrated and kept his CPAP mask on and request I not talk to him. He was willing to answer a few questions he denies seeking treatment at a wound clinic or wind turbine controls engineer - The wound bed to the left foot appears to have been debrided when asked who performed this he reported he does the debridement himself. He reports she has only sought treatment from his PCP and whatever he feels he can provide. I attempted to discuss the benefits of seeking treatment from a trained inventory control specialist, vascular surgeon and or wind turbine controls engineer - he became irritated and stated he just wanted the left toe amputated since he was tired of it. I suggested with the apporpriate care and treatment he may see a decrease in healing time - the patient did not reposnd. I attempted to discuss blood sugar control and he did not engage in conversation. Right Great Toe Etiology: ??Diabetic wound Measurements: see charting for detailed measurement Wound Bed: dry wound bed no dressing in place - yellow slough observed Drainage / Odor: none GEOVANNI Edges: ? calloused Rosey wound: Dry ? No Induration, Fluctuance or Warmth noted Pain: denies - reports neuropathy Goals of Treatment: ? Moist wound healing and follow up care with wound clinic Left Great Toe Etiology: ??Diabetic wound with Crush injury per chart review Measurements: see charting for detailed measurement Wound Bed: moist wound bed with red pink full thickness tissue with thin moist yellow slough observed and central rough bone vs bone fragment exposed Drainage / Odor: yellow creamy drainage noted on dressing - large amount - no odor noted Edges: ? calloused Rosey wound: swelling noted - warmth detected - no erythema noted at this time. ? No Induration, Fluctuance noted Pain: reports significant pain Goals of Treatment: ? Moist wound healing and follow up care with wound clinic Recommendations: 1. Turn and Reposition every 2 hours and as needed for patient comfort.? Use pillows or wedges to support off loading positions. 2. Off Load all bony prominences with use of pillows and heel boots if needed.? Apply Preventative foams where needed. ? 3. Provide adequate and supplemental nutrition.? 4. When applicable maintain blood glucose levels per Providers order. 5. Bilateral Great Toes - Cleanse and irrigate with NS, pat dry. Apply Skin prep to periwound allow to dry. Cover wound bed with cut to size piece of Durafiber AG, Cover with dry gauze and wrap. Change every other day. Recommend follow up out patient Wound Clinic at [address] [place] [phone] and to call for an appointment at time of discharge. [phone].? Re-consult wound care Nurse for wound deterioration or wound changes.
[2023-08-16] MEDS: Sennosides 8.6 MG TABLET 17.2 MG PO (18:40)
[2023-08-16 20:24] LABS: Glucose, Whole Blood 160 mg/dL (60-115)
[2023-08-16 21:32] LABS: Vancomycin Trough 13.4 mcg/mL (10.0-20.0)
[2023-08-17] VITALS (12 sets, daily range): BP systolic 136–196; BP diastolic 67–102; PULSE 61–84; RESP 16–18; TEMP 36.1–37.7; O2SAT 94–100
[2023-08-17] MEDS: Piperacillin Sodium/Tazobactam 4.5 GM in 0.9 % Sodium Chloride 100 ML IV ×4 (01:22→19:51)
[2023-08-17] MEDS: ondansetron HCL 4 MG/2 ML VIAL IVPUSH ×3 (01:55→13:48)
--- NOTE | 2023-08-17 01:58 | PC.NURSE ---
0155- STATED TO FEEL NAUSEOUS, DRY HEAVES, UNSETTLED STOMACH. BOTH ORDERED IV ABX JUST COMPLETED. MEDICATED LITTLE EARLY WITH IVP ZOFRAN. WILL CONTINUE TO MONITOR. PT NPO FOR PLANNED SURGICAL PROCEDURE
[2023-08-17 06:09] LABS: Creatinine Clr Calc Pharmacy 115.8; Estimated Glomerular Filt Rate > 60
[2023-08-17 08:08] LABS: Glucose, Whole Blood 174 mg/dL (60-115)
[2023-08-17] MEDS: 0.9 % Sodium Chloride Flush 3 ML SYRINGE IVFLUSH ×2 (08:34→19:45)
--- NOTE | 2023-08-17 08:59 | P.PNIM_ITS ---
Subjective Subjective Date of Service: 08/17/23 Review of Systems Follow up left great toe crush injury, cellulitis, osteomyelitis pain is constant had some nausea and vomiting overnight Physical Exam 2 Vital Signs: Vital Signs: Last Vital Signs Temp 96.9 F 08/17/23 07:35 Pulse 84 08/17/23 07:35 Resp 18 08/17/23 07:35 BP 149/80 H 08/17/23 07:35 Pulse Ox 98 08/17/23 07:35 O2 Del Method Room Air 08/17/23 07:35 BMI result Body Mass Index 38.6 Appearing in no acute distress lung sounds are clear to auscultation heart regular rate rhythm, clear S1, S2 positive bowel sounds, abdomen is soft, nontender neuro patient is alert x3, no focal deficits Left great plantar toe diabetic wound, crush injury yellow slough, bone fragment noted Right great plantar toe diabetic wound dry wound bed with yellow slough Objective Data Active Medications Acetaminophen (Acetaminophen 325 Mg Tablet) 650 mg PO Q6H PRN PRN Reason: Pain, Mild (Pain Scale 1-3) Dextrose (Dextrose 50 % 25 Gm/50 Ml Syringe) 25 gm IVPUSH Q15M PRN; Protocol PRN Reason: per Hypoglycemia Standing Ord. Glucose (Glucose Gel 15 Gm Gel..Gram.) 15 gm PO Q15M PRN; Protocol PRN Reason: per Hypoglycemia Standing Ord. Heparin Sodium (Porcine) (Heparin Sodium,Porcine 5,000 Unit/Ml Vial) 5,000 unit SUBCUT Q12H [facility] Last Admin: 08/16/23 23:43 Dose: 5,000 unit Documented By: CALLUM Piperacillin Sod/Tazobactam (Sod 4.5 gm/ Sodium Chloride) 100 mls @ 200 mls/hr IV Q6H [facility] Last Admin: 08/17/23 08:33 Dose: 200 mls/hr Documented By: THA Vancomycin HCl 1,250 mg/ (Sodium Chloride) 250 mls @ 166.667 mls/hr IV Q12H [facility] Last Infusion: 08/17/23 01:11 Dose: Infused Documented By: CALLUM Insulin Human Lispro (Insulin Lispro 100 Unit/Ml 3 Ml Vial) 0 unit SUBCUT QIDACHS [facility]; Protocol Last Admin: 08/17/23 07:43 Dose: Not Given Documented By: THA Non-Admin Reason: NPO Morphine Sulfate (Morphine Sulfate 2 Mg/Ml Cartridge) 2 mg IVPUSH Q4H PRN; Protocol PRN Reason: Pain, Severe (Pain Scale 7-10) Last Admin: 08/16/23 18:40 Dose: 2 mg Documented By: CASANDRA Ondansetron HCl (Ondansetron Hcl 4 Mg/2 Ml Vial) 4 mg IVPUSH Q8H PRN PRN Reason: Nausea and Vomiting Last Admin: 08/17/23 01:55 Dose: 4 mg Documented By: CALLUM Oxycodone HCl (Oxycodone Hcl Immed Release 5 Mg Tablet) 5 mg PO Q6H PRN PRN Reason: Pain, Moderate(Pain Scale 4-6) Last Admin: 08/16/23 15:55 Dose: 5 mg Documented By: CASANDRA Pharmacy Consult (Consult Rx Vancomycin Dosing) 1 each MISCELLANE DAILY PRN PRN Reason: Consult order Senna (Sennosides 8.6 Mg Tablet) 17.2 mg PO BEDTIME PRN PRN Reason: Constipation Last Admin: 08/16/23 18:40 Dose: 17.2 mg Documented By: CASANDRA Sodium Chloride (0.9 % Sodium Chloride Flush 3 Ml Syringe) 3 ml IVFSH [facility] Last Admin: 08/17/23 08:34 Dose: 3 ml Documented By: THA Labs 08/16/23 05:26 08/17/23 05:10 Labs: Laboratory Results - last 24 hr 08/16/23 08/16/23 08/17/23 19:45 21:12 05:10 Hold Purple Top SEE NOTE SEE NOTE Estim Creat Clear Calc 115.8 Estimated GFR > 60 POC Glucose 160 H Hold Yellow Top See Note Vancomycin Trough 13.4 08/17/23 07:35 Hold Purple Top Estim Creat Clear Calc Estimated GFR POC Glucose 174 H Hold Yellow Top Vancomycin Trough Microbiology Microbiology Results: Microbiology 08/15/23 10:37 Blood Culture - Preliminary Blood - Venous No growth after 24 hours. 08/15/23 10:30 Blood Culture - Preliminary Blood - Venous No growth after 24 hours. Assessment and Plan (1) Ulcer of great toe: Status: Acute Plan 52 year old male with history of insulin dependent type 2 diabetes, htn, hld, mood disorder, asthma, chronic diabetic ulcers of the great toes bilaterally, diabetic polyneuropathy, and mauri compliant with cpap admitted for further management of cellulitis and osteomyelitis L great toe following crush injury Acute cellulitis and osteomyelitis L great toe s/p open crush injury in uncontrolled diabetic continue IV vanco and zosyn Pain management general surgery consultation> plan for amputation today Chronic stage 3 ulcer R great toe and unstageable ulcer L great toe related to uncontrolled type 2 diabetes recovery room rn consult> cleanse and irrigate with ns, skin prepe to periwound, cover with Durafiber AG, gauze and wrap, every other day Insulin dependent type 2 diabetes ss, ada diet HTN continue home meds Mild intermittent asthma no acute exacerbation albuterol prn Diabetic polyneuropathy continue gabapentin Chronic low back pain continue home meds MAURI compliant with cpap DVT prophylaxis- heparin Attending Dr. Irving full code continue hospital stay for management of acute crush injury and cellulitis L great toe in uncontrolled type 2 diabetic requiring iv abx, expert consultation and amputation Quality Stroke Does the patient have a stroke diagnosis?: No VTE Prior VTE?: No VTE Risk Level:: Medical - moderate - high VTE Device Contraindication: Treatment Not Indicated VTE Drug Contraindication: N/A - Med Ordered
--- NOTE | 2023-08-17 09:30 | PC.NURSE ---
Patient off unit, picked up in bed to preop
--- NOTE | 2023-08-17 09:47 | P.CONAN_ITS ---
[facility] Active Problems Active Problems: All Active Problems (Updated 08/15/23 @ 16:57 by Ace Oh MD) Ulcer of great toe (Acute) Cellulitis of great toe, left (Acute) Crush injury of left foot (Acute) Past Medical History Medical History Ulcer of great toe Asthma Severe obesity Mood disorder MAURI (obstructive sleep apnea) Type 2 diabetes mellitus HLD (hyperlipidemia) HTN (hypertension) Surgical History History of Problems with Anesthesia: No Social History Social History Housing: Apartment Patient Tobacco Use Status: Current everyday Tobacco user Tobacco use type: Cigarette Cigarette Packs Per Day: 1 Cigarettes Per Day: 20.0 Smoked in Last 30 Days: Yes Patient Interested in Nicotine Replacement: Yes Patient Given Instructions on How to Stop Smoking: Yes Date Education Initiated: 08/15/23 Second Hand Smoke Exposure: No Use of substances other than those prescribed or required for medical reasons: Yes Substance Use Type: Marijuana Substance Use Frequency: Daily Currently Displaying Signs/Symptoms of Drug Intoxication Withdrawal: No Are you DNR?: No Advance Directives: No Advance Directives Information Provided: Yes Advance Directives on File: No Recently lost weight without trying: No Nutrition Risks: No Nutritional Risk service: No Meds Allergies Allergy/AdvReac Type Severity Reaction Status Date / Time naproxen [From NAPROSYN] AdvReac Severe STOMACH Verified 08/15/23 09:17 UPSET lisinopril [LISINOPRIL] AdvReac Mild COUGH Verified 08/15/23 09:17 SEAFOOD Allergy Unknown ANAPHYLAXIS Uncoded 08/15/23 09:17 Active Medications: Current Medications Acetaminophen (Acetaminophen 325 Mg Tablet) 650 mg PO Q6H PRN PRN Reason: Pain, Mild (Pain Scale 1-3) Dextrose (Dextrose 50 % 25 Gm/50 Ml Syringe) 25 gm IVPUSH Q15M PRN; Protocol PRN Reason: per Hypoglycemia Standing Ord. Glucose (Glucose Gel 15 Gm Gel..Gram.) 15 gm PO Q15M PRN; Protocol PRN Reason: per Hypoglycemia Standing Ord. Heparin Sodium (Porcine) (Heparin Sodium,Porcine 5,000 Unit/Ml Vial) 5,000 unit SUBCUT Q12H [facility] Last Admin: 08/16/23 23:43 Dose: 5,000 unit Piperacillin Sod/Tazobactam (Sod 4.5 gm/ Sodium Chloride) 100 mls @ 200 mls/hr IV Q6H [facility] Last Infusion: 08/17/23 09:11 Dose: Infused Vancomycin HCl 1,250 mg/ (Sodium Chloride) 250 mls @ 166.667 mls/hr IV Q12H [facility] Last Infusion: 08/17/23 01:11 Dose: Infused Insulin Human Lispro (Insulin Lispro 100 Unit/Ml 3 Ml Vial) 0 unit SUBCUT QIDACHS [facility]; Protocol Last Admin: 08/17/23 07:43 Dose: Not Given Morphine Sulfate (Morphine Sulfate 2 Mg/Ml Cartridge) 2 mg IVPUSH Q4H PRN; Protocol PRN Reason: Pain, Severe (Pain Scale 7-10) Last Admin: 08/16/23 18:40 Dose: 2 mg Ondansetron HCl (Ondansetron Hcl 4 Mg/2 Ml Vial) 4 mg IVPUSH Q8H PRN PRN Reason: Nausea and Vomiting Last Admin: 08/17/23 01:55 Dose: 4 mg Oxycodone HCl (Oxycodone Hcl Immed Release 5 Mg Tablet) 5 mg PO Q6H PRN PRN Reason: Pain, Moderate(Pain Scale 4-6) Last Admin: 08/16/23 15:55 Dose: 5 mg Pharmacy Consult (Consult Rx Vancomycin Dosing) 1 each MISCELLANE DAILY PRN PRN Reason: Consult order Senna (Sennosides 8.6 Mg Tablet) 17.2 mg PO BEDTIME PRN PRN Reason: Constipation Last Admin: 08/16/23 18:40 Dose: 17.2 mg Sodium Chloride (0.9 % Sodium Chloride Flush 3 Ml Syringe) 3 ml IVFLUSH [facility] Last Admin: 08/17/23 08:34 Dose: 3 ml Home Medications Medication Instructions Recorded Confirmed Last Taken Type albuterol sulfate 90 mcg/actuation 2 puff inhalation Q4H PRN Wheezing 08/15/23 08/15/23 Unknown History aerosol inhaler (Ventolin HFA) atorvastatin 80 mg tablet 80 mg PO BEDTIME 08/15/23 08/15/23 08/14/23 History baclofen 10 mg tablet 10 mg PO TID 08/15/23 08/15/23 08/14/23 History carvedilol 12.5 mg tablet 12.5 mg PO BIDWM 08/15/23 08/15/23 08/14/23 History cetirizine 10 mg tablet 10 mg PO DAILY 08/15/23 08/15/23 08/14/23 History chlorthalidone 50 mg tablet 50 mg PO QAM 08/15/23 08/15/23 08/14/23 History dulaglutide 4.5 mg/0.5 mL 4.5 mg subcut QWEEK 08/15/23 08/15/23 08/12/23 History subcutaneous pen injector (Trulicity) empagliflozin 25 mg tablet 25 mg PO QAM 08/15/23 08/15/23 08/14/23 History (Jardiance) epinephrine 0.3 mg/0.3 mL 0.3 mg IM DIRECTED PRN Allergic 08/15/23 08/15/23 Unknown History injection, auto-injector Reaction fluticasone propionate 50 1 spray intranasal BID PRN Allergy 08/15/23 08/15/23 Unknown History mcg/actuation nasal Symptoms spray,suspension gabapentin 800 mg tablet 800 mg PO TID 08/15/23 08/15/23 08/14/23 History hydralazine 50 mg tablet 50 mg PO TID 08/15/23 08/15/23 08/14/23 History insulin aspart 10 unit subcut TIDWM 08/15/23 08/15/23 08/14/23 History (niacinamide)(U-100) 100 unit/mL(3 mL) subcutaneous pen (Fiasp FlexTouch U-100 Insulin) insulin glargine 100 unit/mL (3 60 unit subcut BEDTIME 08/15/23 08/15/23 08/14/23 History mL) subcutaneous pen (Basaglar KwikPen U-100 Insulin) losartan 100 mg tablet 100 mg PO QAM 08/15/23 08/15/23 08/14/23 History magnesium oxide 400 mg (241.3 mg 400 mg PO QAM 08/15/23 08/15/23 08/14/23 History magnesium) tablet nicotine 21 mg/24 hr daily 1 patch transdermal DAILY 08/15/23 08/15/23 08/14/23 History transdermal patch oxycodone 5 mg tablet 5 mg PO Q6H PRN severe pain 08/15/23 08/15/2308/13/24 History spironolactone 25 mg tablet 25 mg PO QAM 08/15/23 08/15/23 08/14/23 History tamsulosin 0.4 mg capsule 0.4 mg PO QA 08/15/23 08/15/23 08/14/23 History Exam Height,Weight and Vital Signs: Height 5 ft 8 in Weight 115.212 kg Last Vital Signs Temp 96.9 F 08/17/23 07:35 Pulse 84 08/17/23 07:35 Resp 18 08/17/23 07:35 BP 149/80 H 08/17/23 07:35 Pulse Ox 98 08/17/23 07:35 O2 Del Method Room Air 08/17/23 07:35 Pertinent Lab Results Pertinent Lab Results: Laboratory Tests 08/15/23 08/15/23 08/15/23 10:30 17:18 19:12 WBC 11.9 H RBC 4.51 L Hgb 12.5 L Hct 38.7 L MCV 85.8 MCH 27.7 MCHC 32.3 RDW 13.4 Plt Count 400 MPV 9.0 L Immature Gran % (Auto) 0.6 H Neut % (Auto) 66.3 Lymph % (Auto) 20.9 [place] % (Auto) 8.0 Eos % (Auto) 3.1 Baso % (Auto) 1.1 Lymph # (Auto) 2.5 [place] # (Auto) 1.0 Eos # (Auto) 0.4 Baso # (Auto) 0.1 Abs Immat Gran (auto) 0.07 H Absolute Neuts (auto) 7.9 Absolute Nucleated RBC 0.000 Nucleated RBC % (auto) 0.0 ESR 79 H Hold Purple Top Sodium 136 Potassium 4.0 Chloride 103 Carbon Dioxide 25 Anion Gap 12 BUN 25 H Creatinine 1.02 Estim Creat Clear Calc 106.7 Estimated GFR > 60 POC Glucose 195 H 157 H Random Glucose 183 H Estimat Average Glucose 177 Hemoglobin A1c % 7.8 H Lactic Acid 1.2 Calcium 9.2 C-Reactive Protein 3.41 H Hold Yellow Top Vancomycin Trough 08/15/23 08/16/23 08/16/23 22:27 05:26 07:38 WBC 8.6 RBC 4.67 Hgb 13.0 L Hct 40.1 L MCV 85.9 MCH 27.8 MCHC 32.4 RDW 13.4 Plt Count 390 MPV 9.1 L Immature Gran % (Auto) 0.6 H Neut % (Auto) 65.9 Lymph % (Auto) 18.3 L [place] % (Auto) 8.9 Eos % (Auto) 5.4 H Baso % (Auto) 0.9 Lymph # (Auto) 1.6 [place] # (Auto) 0.8 Eos # (Auto) 0.5 H Baso # (Auto) 0.1 Abs Immat Gran (auto) 0.05 H Absolute Neuts (auto) 5.7 Absolute Nucleated RBC 0.000 Nucleated RBC % (auto) 0.0 ESR Hold Purple Top Sodium 136 Potassium 4.1 Chloride 101 Carbon Dioxide 26 Anion Gap 13 BUN 18 H Creatinine 0.93 Estim Creat Clear Calc 117.1 Estimated GFR > 60 POC Glucose 185 H 177 H Random Glucose 171 H Estimat Average Glucose Hemoglobin A1c % Lactic Acid Calcium 9.1 C-Reactive Protein Hold Yellow Top Vancomycin Trough 08/16/23 08/16/23 08/17/23 19:45 21:12 05:10 WBC RBC Hgb Hct MCV MCH MCHC RDW Plt Count MPV Immature Gran % (Auto) Neut % (Auto) Lymph % (Auto) [place] % (Auto) Eos % (Auto) Baso % (Auto) Lymph # (Auto) [place] # (Auto) Eos # (Auto) Baso # (Auto) Abs Immat Gran (auto) Absolute Neuts (auto) Absolute Nucleated RBC Nucleated RBC % (auto) ESR Hold Purple Top SEE NOTE SEE NOTE Sodium Potassium Chloride Carbon Dioxide Anion Gap BUN Creatinine 0.94 Estim Creat Clear Calc 115.8 Estimated GFR > 60 POC Glucose 160 H Random Glucose Estimat Average Glucose Hemoglobin A1c % Lactic Acid Calcium C-Reactive Protein Hold Yellow Top See Note Vancomycin Trough 13.4 08/17/23 07:35 WBC RBC Hgb Hct MCV MCH MCHC RDW Plt Count MPV Immature Gran % (Auto) Neut % (Auto) Lymph % (Auto) [place] % (Auto) Eos % (Auto) Baso % (Auto) Lymph # (Auto) [place] # (Auto) Eos # (Auto) Baso # (Auto) Abs Immat Gran (auto) Absolute Neuts (auto) Absolute Nucleated RBC Nucleated RBC % (auto) ESR Hold Purple Top Sodium Potassium Chloride Carbon Dioxide Anion Gap BUN Creatinine Estim Creat Clear Calc Estimated GFR POC Glucose 174 H Random Glucose Estimat Average Glucose Hemoglobin A1c % Lactic Acid Calcium C-Reactive Protein Hold Yellow Top Vancomycin Trough Airway Mallampati Class: II TM Dist: >3cm Neck ROM: Full Loose/Missing/Broken Teeth: No Heart: RRR Lungs: CTA Assessment and Plan Assessment Anesthesia Assessment: Anesthesia Plan Discussed and Chart Reviewed Final Anesthetic Review History of Problems with Anesthesia: No NPO: Yes ASA Class: III Final Preanesthetic Review: Meds/Allgs Chart Reviewed, Consent Obtained/Reviewed and Anes Risks/Benef Reviewed Patient Risk: Intermediate Procedure Risk: Low Anesthetic Plan Anesthetic Plan: GA Disposition: Standard PACU
[2023-08-17 10:14] LABS: Glucose, Whole Blood 199 mg/dL (60-115)
[2023-08-17] MEDS: Midazolam HCl/PF 2 MG/2 ML VIAL IVPUSH (12:14)
--- NOTE | 2023-08-17 12:14 | PC.NURSE ---
patient c/o pain, nausea and becoming more anxious waiting for procedure. explained delay in room. Dr. Boo, anesthesiologist at bedside to consent patient. Dr Oh consent obtained. Orders received and administered for Zofran 4mg IV and Versed 2mg IV. patient also requesting mouth swab as my mouth is very dry . per Dr Boo okay to give mouth swab.
--- NOTE | 2023-08-17 13:35 | W.PM.OPN ---
Operative Note Operative Note Date of Service: 08/17/23 Narrative: Preop diagnosis: Chronic diabetic ulcer, left big toe Postop diagnosis: The same Procedure: Ray amputation, left big toe Surgeon: Ace Oh MD Painting Department Supervisor: DAPHNIE Pfeiffer student The patient is a 52-year-old male with a chronic toe ulcer on the plantar aspect of left big toe. This has been causing him a lot of pain, discomfort. He says the ulcer has not healed at all in several months. Despite the absence of osteomyelitis, he wanted to proceed with toe amputation especially after suffering a crush injury on the same toe last week. Understood the technique of the procedure as well as the risks, benefits, and alternatives He was brought to the operating room. He was placed supine under general anesthesia via laryngeal mask airway. The left foot was prepped and draped in the usual sterile fashion. A surgical time-out was done. The patient was receiving scheduled IV antibiotics I infiltrated my planned line an incision around the left big toe. The incision was made a blade 15. This was carried down with electrocautery through the full-thickness of the skin and subcutaneous fat. The thick tendons and ligaments were divided using Monroy scissors. I define the metatarsal head. I sharply dissected around this. I used the bone saw to divide the metatarsal head. I controlled bleeders with electrocautery as well as ties. Once hemostasis was confirmed, I copiously irrigated. I smoothened sharp edges of the divided metatarsal with a bone file. I reapposed deep subcutaneous tissue and soft tissue with polysorb 3-0 simple interrupted sutures. Skin closure was achieved with nylon 3-0 simple interrupted sutures. The area was infiltrated with Marcaine 0.5% for postop analgesia. Dressings were applied. The procedure was completed. He tolerated procedure well. There were no immediate complications. Initial and final counts of sponges and instruments were correct. Estimated blood loss was about 40 cc. He was extubated without difficulty and transferred to the recovery room with stable vital signs.
--- NOTE | 2023-08-17 16:09 | PM.EVENT ---
Event Note Date of Service: 08/17/23 Event Note: Seen postop Underwent amputation of the left big toe earlier Appears to have good pain control Dressings dry Continue pain management Wound care - daily dressing changes Time Spent With Patient Time: Total time managing care of this patient today ____ minutes.
[2023-08-17 16:32] LABS: Glucose, Whole Blood 193 mg/dL (60-115)
--- NOTE | 2023-08-17 16:33 | MHC.CM.PN ---
Per MD rounds no discharge today. Patient scheduled for O.R. today for amputation. DP Home self care vs with [facility]. Patient will arrange for transportation home.
[2023-08-17] MEDS: Morphine Sulfate 2 MG/ML CARTRIDGE IVPUSH ×2 (17:03→22:31)
[2023-08-17] MEDS: Insulin Lispro 100 UNIT/ML 3 ML VIAL SUBCUT ×2 (17:06→21:11)
[2023-08-17] MEDS: vancomycin HCL 1,250 MG in 0.9 % Sodium Chloride 250 ML 166.67 MG IV (17:52)
[2023-08-17] MEDS: oxyCODONE HCl Immed Release 5 MG TABLET 10 MG PO (17:55)
[2023-08-17 20:49] LABS: Glucose, Whole Blood 197 mg/dL (60-115)
[2023-08-18] VITALS (14 sets, daily range): BP systolic 135–154; BP diastolic 71–79; PULSE 58–80; RESP 18–20; TEMP 36.5–36.8; O2SAT 96–98
[2023-08-18] MEDS: Heparin Sodium,Porcine 5,000 UNIT/ML VIAL 5000 UNIT SUBCUT ×2 (01:17→12:07)
[2023-08-18] MEDS: Piperacillin Sodium/Tazobactam 4.5 GM in 0.9 % Sodium Chloride 100 ML IV ×3 (01:21→14:15)
[2023-08-18] MEDS: Morphine Sulfate 2 MG/ML CARTRIDGE IVPUSH ×2 (01:23→09:38)
[2023-08-18] MEDS: Morphine Sulfate 4 MG/ML CARTRIDGE IVPUSH (02:14)
[2023-08-18] MEDS: oxyCODONE HCl Immed Release 5 MG TABLET 10 MG PO ×4 (03:39→21:27)
[2023-08-18 05:41] LABS: Creatinine Clr Calc Pharmacy 123.7; Estimated Glomerular Filt Rate > 60
[2023-08-18] MEDS: vancomycin HCL 1,250 MG in 0.9 % Sodium Chloride 250 ML 166.67 MG IV (06:16)
[2023-08-18] MEDS: HYDROmorphone HCl 1 MG/ML SYRINGE IVPUSH (06:39)
--- NOTE | 2023-08-18 07:05 | PC.NURSE ---
Assumed care of patient at midnight. Pain at surgical site/left toe amp not well controlled, requiring additional 1x pain meds. Continuous spo2 monitoring placed prior to administering additional pain meds for safety/monitoring. VSS. Pt appropriately arousable to voice, mentation maintained. Breathing is even and unlabored without distress. See shift assessment and EMAR for full details. Handoff report given 06:45 to oncoming RN.
--- NOTE | 2023-08-18 07:59 | PM.PNGS ---
Subjective Subjective Date of Service: 08/18/23 Interval history: c/o of pain on amputation site no events overnight Physical Exam Vital Signs: Vital Signs: Last Vital Signs Temp 98.2 F 08/18/23 07:54 Pulse 58 08/18/23 07:54 Resp 18 08/18/23 07:54 BP 136/76 08/18/23 07:54 Pulse Ox 97 08/18/23 07:54 O2 Del Method Room Air 08/18/23 07:54 O2 Flow Rate 93 08/17/23 15:33 BMI result Body Mass Index 38.6 Const: General: comfortable and no acute distress Resp: Effort & Inspection: normal respiratory effort Extrem: Other: dressings on amputation site dry, no cellulitis on rest of foot Objective Data Active Medications Acetaminophen (Acetaminophen 325 Mg Tablet) 650 mg PO Q6H PRN PRN Reason: Pain, Mild (Pain Scale 1-3) Acetaminophen (Acetaminophen 325 Mg Tablet) 650 mg PO ONCE PRN PRN Reason: Pain, Mild (Pain Scale 1-3) Albuterol Sulfate (Albuterol Sulfate (0.083%) 2.5 Mg/3 Ml Vial.Neb) 2.5 mg INHALE ONCE PRN PRN Reason: Wheezing Dextrose (Dextrose 50 % 25 Gm/50 Ml Syringe) 25 gm IVPUSH Q15M PRN; Protocol PRN Reason: per Hypoglycemia Standing Ord. Fentanyl (Fentanyl Citrate/Pf 100 Mcg/2 Ml Vial) 25 mcg IVPUSH Q5M PRN; Protocol PRN Reason: Pain, Moderate(Pain Scale 4-6) Glucose (Glucose Gel 15 Gm Gel..Gram.) 15 gm PO Q15M PRN; Protocol PRN Reason: per Hypoglycemia Standing Ord. Heparin Sodium (Porcine) (Heparin Sodium,Porcine 5,000 Unit/Ml Vial) 5,000 unit SUBCUT Q12H [facility] Last Admin: 08/18/23 01:17 Dose: 5,000 unit Documented By: CATY Hydromorphone HCl (Hydromorphone Hcl 0.5 Mg/0.5 Ml Syringe) 0.25 mg IVPUSH Q5M PRN; Protocol PRN Reason: Pain, Severe (Pain Scale 7-10) Piperacillin Sod/Tazobactam (Sod 4.5 gm/ Sodium Chloride) 100 mls @ 200 mls/hr IV Q6H [facility] Last Infusion: 08/18/23 01:51 Dose: Infused Documented By: CATY Vancomycin HCl 1,250 mg/ (Sodium Chloride) 250 mls @ 166.667 mls/hr IV Q12H [facility] Last Infusion: 08/18/23 07:53 Dose: Infused Documented By: THA Insulin Human Lispro (Insulin Lispro 100 Unit/Ml 3 Ml Vial) 0 unit SUBCUT QIDACHS [facility]; Protocol Last Admin: 08/17/23 21:11 Dose: 2 unit Documented By: SATURNINO Morphine Sulfate (Morphine Sulfate 2 Mg/Ml Cartridge) 2 mg IVPUSH Q3H PRN; Protocol PRN Reason: Pain, Severe (Pain Scale 7-10) Last Admin: 08/18/23 01:23 Dose: 2 mg Documented By: CATY Ondansetron HCl (Ondansetron Hcl 4 Mg/2 Ml Vial) 4 mg IVPUSH Q8H PRN PRN Reason: Nausea and Vomiting Last Admin: 08/17/23 01:55 Dose: 4 mg Documented By: CALLUM Oxycodone HCl (Oxycodone Hcl Immed Release 5 Mg Tablet) 10 mg PO Q4H PRN PRN Reason: Pain, Moderate(Pain Scale 4-6) Last Admin: 08/18/23 03:39 Dose: 10 mg Documented By: CATY Pharmacy Consult (Consult Rx Vancomycin Dosing) 1 each MISCELLANE DAILY PRN PRN Reason: Consult order Senna (Sennosides 8.6 Mg Tablet) 17.2 mg PO BEDTIME PRN PRN Reason: Constipation Last Admin: 08/16/23 18:40 Dose: 17.2 mg Documented By: CASANDRA Sodium Chloride (0.9 % Sodium Chloride Flush 3 Ml Syringe) 3 ml IVFLUSH QSHIFT [facility] Last Admin: 08/17/23 19:45 Dose: 3 ml Documented By: SATURNINO Labs 08/16/23 05:26 08/18/23 05:14 Labs: Laboratory Results - last 24 hr 08/17/23 08/17/23 08/17/23 07:35 10:10 16:24 Hold Purple Top Estim Creat Clear Calc Estimated GFR POC Glucose 174 H 199 H 193 H 08/17/23 08/18/23 20:30 05:14 Hold Purple Top SEE NOTE Estim Creat Clear Calc 123.7 Estimated GFR > 60 POC Glucose 197 H Microbiology Microbiology Results: Microbiology 08/15/23 10:37 Blood Culture - Preliminary Blood - Venous No growth after 48 hours. 08/15/23 10:30 Blood Culture - Preliminary Blood - Venous No growth after 48 hours. Procedures Date of Service Date of Service: 08/18/23 Progress Note: A&P Assessment and plan (1) Ulcer of great toe: Status: Acute Assessment and Plan: s/p toe amp, big toe seems to be doing well postop pain mgt plan to change dressings tomorrow blood sugar control Time Spent With Patient Time: Total time managing care of this patient today ____ minutes. Quality Stroke Does the patient have a stroke diagnosis?: No VTE Prior VTE?: No VTE Risk Level:: Medical - moderate - high VTE Device Contraindication: Treatment Not Indicated VTE Drug Contraindication: N/A - Med Ordered
[2023-08-18 08:00] LABS: Glucose, Whole Blood 184 mg/dL (60-115)
[2023-08-18] MEDS: Insulin Lispro 100 UNIT/ML 3 ML VIAL SUBCUT ×4 (08:15→19:45)
[2023-08-18] MEDS: 0.9 % Sodium Chloride Flush 3 ML SYRINGE IVFLUSH ×2 (08:32→19:42)
--- NOTE | 2023-08-18 10:40 | HO.POSTANES ---
Post Anesthesia Evaluation Post Anesthesia Evaluation Date of Service: 08/18/23 Vital Signs: Vital Signs Temp Pulse Resp BP Pulse Ox O2 Del Method 08/18/23 09:35 58 136/76 97 08/18/23 07:54 98.2 F 58 18 136/76 97 Room Air 08/18/23 06:39 18 08/18/23 06:37 18 96 Room Air 08/18/23 04:39 18 08/18/23 03:16 97.9 F 60 18 154/71 H 96 CPAP 08/18/23 02:51 62 18 97 CPAP 08/18/23 02:44 18 08/18/23 02:20 18 97 CPAP 08/18/23 02:14 20 08/18/23 01:52 20 08/17/23 23:44 99.8 F 61 18 136/75 96 CPAP 08/17/23 23:05 18 Anesthesia: General Mental Status: Awake Pain Control: Satisfactory (pain at incision site) Nausea/Vomiting: None Hydration: Adequate Anesthesia-Related Issues: No Anes. Related Issues
[2023-08-18] MEDS: HYDROmorphone HCl 0.5 MG/0.5 ML SYRINGE IVPUSH ×3 (11:24→19:42)
[2023-08-18 11:27] LABS: Glucose, Whole Blood 187 mg/dL (60-115)
--- NOTE | 2023-08-18 14:22 | P.PNIM_ITS ---
Subjective Subjective Date of Service: 08/18/23 Interval History: seen and examined this morning s/p left great toe amputation for osteo 08/17 having pain at amputation site Review of Systems Review of Systems: Yes all other systems are reviewed and are negative Constitutional Constitutional: Denies chills and Denies fever(s) Cardiovascular Cardiovascular: Denies chest pain, Denies palpitations and Denies dyspnea Respiratory Respiratory: Denies cough and Denies dyspnea Endocrine Endocrine: Denies palpitations Physical Exam 2 Vital Signs: Vital Signs: Last Vital Signs Temp 98.2 F 08/18/23 07:54 Pulse 58 08/18/23 09:35 Resp 18 08/18/23 07:54 BP 136/76 08/18/23 09:35 Pulse Ox 97 08/18/23 09:35 O2 Del Method Room Air 08/18/23 07:54 O2 Flow Rate 93 08/17/23 15:33 BMI result Body Mass Index 38.6 Const: General: cooperative, comfortable, no acute distress, alert and awake Nutritional Appearance: overweight Orientation/consciousness: patient oriented x3 Resp: Effort & Inspection: normal respiratory effort, able to speak in complete sentences, no respiratory distress and no use of accessory muscles Cardio: Rate: regular rate GI: Inspection: No distended Palpation (GI): Soft to palpation and nontender Neuro: General: patient oriented x3, moves all extremities and CN's II-XI intact bilaterally Extrem: General: Yes no pedal edema Objective Data Active Medications Acetaminophen (Acetaminophen 325 Mg Tablet) 650 mg PO Q6H PRN PRN Reason: Pain, Mild (Pain Scale 1-3) Acetaminophen (Acetaminophen 325 Mg Tablet) 650 mg PO ONCE PRN PRN Reason: Pain, Mild (Pain Scale 1-3) Albuterol Sulfate (Albuterol Sulfate (0.083%) 2.5 Mg/3 Ml Vial.Neb) 2.5 mg INHALE ONCE PRN PRN Reason: Wheezing Dextrose (Dextrose 50 % 25 Gm/50 Ml Syringe) 25 gm IVPUSH Q15M PRN; Protocol PRN Reason: per Hypoglycemia Standing Ord. Glucose (Glucose Gel 15 Gm Gel..Gram.) 15 gm PO Q15M PRN; Protocol PRN Reason: per Hypoglycemia Standing Ord. Heparin Sodium (Porcine) (Heparin Sodium,Porcine 5,000 Unit/Ml Vial) 5,000 unit SUBCUT Q12H [facility] Last Admin: 08/18/23 12:07 Dose: 5,000 unit Documented By: THA Hydromorphone HCl (Hydromorphone Hcl 0.5 Mg/0.5 Ml Syringe) 0.5 mg IVPUSH Q4H PRN; Protocol PRN Reason: Pain, Severe (Pain Scale 7-10) Last Admin: 08/18/23 11:24 Dose: 0.5 mg Documented By: THA Piperacillin Sod/Tazobactam (Sod 4.5 gm/ Sodium Chloride) 100 mls @ 200 mls/hr IV Q6H [facility] Last Admin: 08/18/23 14:15 Dose: 200 mls/hr Documented By: THA Vancomycin HCl 1,250 mg/ (Sodium Chloride) 250 mls @ 166.667 mls/hr IV Q12H [facility] Last Infusion: 08/18/23 07:53 Dose: Infused Documented By: THA Insulin Human Lispro (Insulin Lispro 100 Unit/Ml 3 Ml Vial) 0 unit SUBCUT QIDACHS [facility]; Protocol Last Admin: 08/18/23 12:07 Dose: 2 unit Documented By: THA Ondansetron HCl (Ondansetron Hcl 4 Mg/2 Ml Vial) 4 mg IVPUSH Q8H PRN PRN Reason: Nausea and Vomiting Last Admin: 08/17/23 01:55 Dose: 4 mg Documented By: CALLUM Oxycodone HCl (Oxycodone Hcl Immed Release 5 Mg Tablet) 10 mg PO Q4H PRN PRN Reason: Pain, Moderate(Pain Scale 4-6) Last Admin: 08/18/23 14:14 Dose: 10 mg Documented By: THA Pharmacy Consult (Consult Rx Vancomycin Dosing) 1 each MISCELLANE DAILY PRN PRN Reason: Consult order Senna (Sennosides 8.6 Mg Tablet) 17.2 mg PO BEDTIME PRN PRN Reason: Constipation Last Admin: 08/16/23 18:40 Dose: 17.2 mg Documented By: CASANDRA Sodium Chloride (0.9 % Sodium Chloride Flush 3 Ml Syringe) 3 ml IVFLUSH [facility] Last Admin: 08/18/23 08:32 Dose: 3 ml Documented By: TRISTON-EDWIN Labs 08/16/23 05:26 08/18/23 05:14 Labs: Laboratory Results - last 24 hr 08/17/23 08/17/23 08/18/23 16:24 20:30 05:14 Hold Purple Top SEE NOTE Estim Creat Clear Calc 123.7 Estimated GFR > 60 POC Glucose 193 H 197 H 08/18/23 08/18/23 07:53 11:16 Hold Purple Top Estim Creat Clear Calc Estimated GFR POC Glucose 184 H 187 H Microbiology Microbiology Results: Microbiology 08/15/23 10:37 Blood Culture - Preliminary Blood - Venous No growth after 48 hours. 08/15/23 10:30 Blood Culture - Preliminary Blood - Venous No growth after 48 hours. Assessment and Plan (1) Crush injury of left foot: Status: Acute Plan 52 year old male with history of insulin dependent type 2 diabetes, htn, hld, mood disorder, asthma, chronic diabetic ulcers of the great toes bilaterally, diabetic polyneuropathy, and mauri compliant with cpap admitted for further management of cellulitis and osteomyelitis L great toe following crush injury Acute cellulitis and osteomyelitis L great toe s/p open crush injury in uncontrolled diabetic general surgery consultation> s/p left great toe amputation 08/16 source of infection removed, will d/c antibiotics blood cultures negative to date pain control Chronic stage 3 ulcer R great toe and unstageable ulcer L great toe related to uncontrolled type 2 diabetes rn or lpn consult> cleanse and irrigate with ns, skin prep to periwound, cover with Durafiber AG, gauze and wrap, every other day Insulin dependent type 2 diabetes ss, ada diet HTN continue home meds Mild intermittent asthma no acute exacerbation albuterol prn Diabetic polyneuropathy continue gabapentin Chronic low back pain continue home meds MAURI compliant with cpap DVT prophylaxis- heparin Attending Dr. Irving full code continue hospital stay for management of acute crush injury and cellulitis L great toe in uncontrolled type 2 diabetic requiring wound care, postoperative care, close monitoring of wound Quality Stroke Does the patient have a stroke diagnosis?: No VTE Prior VTE?: No VTE Risk Level:: Medical - moderate - high VTE Device Contraindication: Treatment Not Indicated VTE Drug Contraindication: N/A - Med Ordered
--- NOTE | 2023-08-18 14:34 | W.PM.OPN ---
Operative Note Colon Resection Tumor location: Right colon Extent of lymphovascular resection General Surg. - Synoptic Notes Colon Resection Tumor location: Right colon Extent of Lymphovascular Resection:
[2023-08-18 16:03] LABS: Glucose, Whole Blood 188 mg/dL (60-115)
[2023-08-18 19:38] LABS: Glucose, Whole Blood 265 mg/dL (60-115)
[2023-08-19] VITALS: BP 159/84; PULSE 64; RESP 16; TEMP 36.4; O2SAT 98
[2023-08-19] MEDS: Heparin Sodium,Porcine 5,000 UNIT/ML VIAL 5000 UNIT SUBCUT ×2 (00:05→11:39)
[2023-08-19] MEDS: HYDROmorphone HCl 0.5 MG/0.5 ML SYRINGE IVPUSH ×3 (00:05→12:28)
[2023-08-19 05:38] LABS: Hematocrit 37.8 % (42.0-52.0); Hemoglobin 12.5 g/dl (14.0-18.0); Mean Corpuscular HGB Conc 33.1 g/dl (31.0-36.0); Mean Corpuscular Volume 84.6 fL (80.0-98.0); Mean Platelet Volume 8.8 fL (9.4-12.4); Platelet Count 330 X10*3/uL (160-400); Red Blood Count 4.47 X10*6/uL (4.60-5.80); Red Cell Distribution Width 13.1 % (11.0-16.0); White Blood Count 9.2 X10*3/uL (4.8-10.8)
[2023-08-19 05:50] LABS: Creatinine Clr Calc Pharmacy 119.6; Estimated Glomerular Filt Rate > 60
[2023-08-19 07:06] VITALS: BP 158/90; PULSE 76; RESP 18; TEMP 36.6; O2SAT 98
[2023-08-19 07:15] LABS: Glucose, Whole Blood 176 mg/dL (60-115)
[2023-08-19] MEDS: Insulin Lispro 100 UNIT/ML 3 ML VIAL SUBCUT ×2 (07:22→11:42)
[2023-08-19] MEDS: ondansetron HCL 4 MG/2 ML VIAL IVPUSH (07:22)
[2023-08-19] MEDS: 0.9 % Sodium Chloride Flush 3 ML SYRINGE IVFLUSH (07:23)
--- NOTE | 2023-08-19 07:49 | PM.PNGS ---
Subjective Subjective Date of Service: 08/19/23 Interval history: no new complaints some pain on amputation site Physical Exam Vital Signs: Vital Signs: Last Vital Signs Temp 98 F 08/19/23 07:06 Pulse 76 08/19/23 07:06 Resp 18 08/19/23 07:06 BP 158/90 H 08/19/23 07:06 Pulse Ox 98 08/19/23 07:06 O2 Del Method BiPAP 08/19/23 07:06 O2 Flow Rate 93 08/17/23 15:33 BMI result Body Mass Index 38.6 Const: General: comfortable and no acute distress Resp: Effort & Inspection: normal respiratory effort Cardio: Rate: regular rate Extrem: Other: big toe amputation site on left foot - clean, sutures intact, no pus, no cellulitis Objective Data Active Medications Acetaminophen (Acetaminophen 325 Mg Tablet) 650 mg PO Q6H PRN PRN Reason: Pain, Mild (Pain Scale 1-3) Acetaminophen (Acetaminophen 325 Mg Tablet) 650 mg PO ONCE PRN PRN Reason: Pain, Mild (Pain Scale 1-3) Albuterol Sulfate (Albuterol Sulfate (0.083%) 2.5 Mg/3 Ml Vial.Neb) 2.5 mg INHALE ONCE PRN PRN Reason: Wheezing Dextrose (Dextrose 50 % 25 Gm/50 Ml Syringe) 25 gm IVPUSH Q15M PRN; Protocol PRN Reason: per Hypoglycemia Standing Ord. Glucose (Glucose Gel 15 Gm Gel..Gram.) 15 gm PO Q15M PRN; Protocol PRN Reason: per Hypoglycemia Standing Ord. Heparin Sodium (Porcine) (Heparin Sodium,Porcine 5,000 Unit/Ml Vial) 5,000 unit SUBCUT Q12H [facility] Last Admin: 08/19/23 00:05 Dose: 5,000 unit Documented By: LESLEE Hydromorphone HCl (Hydromorphone Hcl 0.5 Mg/0.5 Ml Syringe) 0.5 mg IVPUSH Q4H PRN; Protocol PRN Reason: Pain, Severe (Pain Scale 7-10) Last Admin: 08/19/23 07:14 Dose: 0.5 mg Documented By: AMINA Insulin Human Lispro (Insulin Lispro 100 Unit/Ml 3 Ml Vial) 0 unit SUBCUT QIDACHS [facility]; Protocol Last Admin: 08/19/23 07:22 Dose: 2 unit Documented By: AMINA Ondansetron HCl (Ondansetron Hcl 4 Mg/2 Ml Vial) 4 mg IVPUSH Q8H PRN PRN Reason: Nausea and Vomiting Last Admin: 08/19/23 07:22 Dose: 4 mg Documented By: AMINA Oxycodone HCl (Oxycodone Hcl Immed Release 5 Mg Tablet) 10 mg PO Q4H PRN PRN Reason: Pain, Moderate(Pain Scale 4-6) Last Admin: 08/18/23 21:27 Dose: 10 mg Documented By: LESLEE Senna (Sennosides 8.6 Mg Tablet) 17.2 mg PO BEDTIME PRN PRN Reason: Constipation Last Admin: 08/16/23 18:40 Dose: 17.2 mg Documented By: CASANDRA Sodium Chloride (0.9 % Sodium Chloride Flush 3 Ml Syringe) [facility] Last Admin: 08/19/23 07:23 Dose: 3 ml Documented By: AMINA Labs 08/19/23 05:15 08/19/23 05:15 Labs: Laboratory Results - last 24 hr 08/18/23 08/18/23 08/18/23 07:53 11:16 15:58 MCV MCH MCHC RDW Plt Count MPV Absolute Nucleated RBC Nucleated RBC % (auto) Estim Creat Clear Calc Estimated GFR POC Glucose 184 H 187 H 188 H 08/18/23 08/19/23 08/19/23 19:34 05:15 07:05 MCV 84.6 MCH 28.0 MCHC 33.1 RDW 13.1 Plt Count 330 MPV 8.8 L Absolute Nucleated RBC 0.000 Nucleated RBC % (auto) 0.0 Estim Creat Clear Calc 119.6 Estimated GFR > 60 POC Glucose 265 H 176 H Procedures Date of Service Date of Service: 08/19/23 Progress Note: A&P Assessment and plan (1) Ulcer of great toe: Status: Acute Assessment and Plan: S/P toe amp dressings changed dry gauze used, foot wrapped in Joe foot elevation pain control dressing changes daily ffup in office in 2-3 weeks postop when discharged Time Spent With Patient Time: Total time managing care of this patient today ____ minutes. Quality Stroke Does the patient have a stroke diagnosis?: No VTE Prior VTE?: No VTE Risk Level:: Medical - moderate - high VTE Device Contraindication: Treatment Not Indicated VTE Drug Contraindication: N/A - Med Ordered
[2023-08-19 09:08] VITALS: BP 158/90; PULSE 76; O2SAT 98
[2023-08-19] MEDS: oxyCODONE HCl Immed Release 5 MG TABLET 10 MG PO ×2 (09:10→13:07)
[2023-08-19 11:12] LABS: Glucose, Whole Blood 235 mg/dL (60-115)
--- NOTE | 2023-08-19 12:32 | P.DS_ITS ---
DS: Providers Provider Date of Service: 08/19/23 Date of admission: 08/15/23 12:06 Date of discharge: 08/19/23 Primary care physician: Milena Shoemaker MD Consults: 08/15/23 12:06 Consult to General Surgery Routine Consulting Provider: [facility] General Surgeons Reason for consultation: crush injury L great toe, suspected osteomyelitis, likely needs amp 08/15/23 12:30 Consult to Wound Care Routine Reason for consultation: chronic diabetic ulcers b/l great toes, with acute crush injury R great toe Attending physician on discharge: Cesar Irving Discharging clinician: Rosanne Jeffery DS: Diagnosis Discharge Diagnosis (1) Ulcer of great toe: Status: Acute DS: Summary Hospital Course Hospital Course: From H&P on the day of admission 52 year old male with history of insulin dependent type 2 diabetes, htn, hld, mood disorder, asthma, chronic diabetic ulcers of the great toes bilaterally, diabetic polyneuropathy, and jenelle compliant with cpap presented to the ER earlier today for evaluation of crush injury to the L great toe sustained on tuesday after dropping a car cylinder directly on the toe. He reports he has had a chronic ulcer to the plantar surface of the L great toe ongoing 2 months and diabetic ulcer to the plantar surface R great toe ongoing about one month. Reports he was seen by pcp about a month ago and prescribed an antibiotic but does not recall the name. Since the injury tuesday, the left great toe has been very swollen, erythematous with open wound draining seropurulent drainage. Bone has been observed to protrude from the wound and the patient manually reduces this. He states the pain is now radiating up the medial aspect of the LLE. In the ER, vitals stable. Mild leukocytosis 11.9, no sepsis. Renal function and lytes normal. Lactic acid 1.2. CRP 3.41, ESR 79. In the ED, received 2g IV ctx, 2g vanco, and 10mg oxycodone. Acute cellulitis and osteomyelitis L great toe s/p open crush injury in uncontrolled diabetic. Initially treated with IV antibiotics, Seen by general surgery and underwent left great toe amputation on 08/16. As source of infection was removed antibiotics were discontinued. blood cultures have remained negative to date. Patient will need outpatient follow up with general surgery in 2-3 weeks. dressing changes as per surgery recommendation. Chronic stage 3 ulcer R great toe labor delivery rn consult. recommend to cleanse and irrigate with ns, skin prep to periwound, cover with Durafiber AG, gauze and wrap, every other day diabetes. Hba1c 7.8. blood sugars have been below 200. has been treated with sliding scale. We will continue Trulicity, decreased dose of Lantus to 40 units. For now would recommend to hold premeal scheduled insulin. Patient monitors his blood sugar with continuous glucose monitor. He will call his PCP to schedule follow up appointment. Time Attestation Total time managing care of this patient today: 38 mintues. Discharge Coordination Time (in mins): 38 Quality: Safe Use of Opioids Does Pt have an Active Cancer Diagnosis on the Problem List?: No Quality: Stroke Does the patient have a stroke diagnosis?: No Physical Exam Vital Signs: Vital Signs: Last Vital Signs Temp 98 F 08/19/23 07:06 Pulse 76 08/19/23 09:08 Resp 18 08/19/23 07:06 BP 158/90 H 08/19/23 09:08 Pulse Ox 98 08/19/23 09:08 O2 Del Method BiPAP 08/19/23 07:06 O2 Flow Rate 93 08/17/23 15:33 BMI result Body Mass Index 38.6 Const: General: cooperative, comfortable, no acute distress, alert and awake Nutritional Appearance: overweight Orientation/consciousness: patient oriented x3 Resp: Effort & Inspection: normal respiratory effort, able to speak in com plete sentences, no respiratory distress and no use of accessory muscles Cardio: Rate: regular rate GI: Inspection: No distended Palpation (GI): Soft to palpation and nontender Neuro: General: patient oriented x3, moves all extremities and CN's II-XI intact bilaterally Extrem: General: Yes no pedal edema DS: Data Data Completed and Pending Pending studies at discharge: Pending at discharge 08/17/23 13:21 Surgical [PTH] Routine Labs on day of discharge: Laboratory Results - last 24 hr 08/18/23 08/18/23 08/19/23 15:58 19:34 05:15 WBC 9.2 RBC 4.47 L Hgb 12.5 L Hct 37.8 L MCV 84.6 MCH 28.0 MCHC 33.1 RDW 13.1 Plt Count 330 MPV 8.8 L Absolute Nucleated RBC 0.000 Nucleated RBC % (auto) 0.0 Creatinine 0.91 Estim Creat Clear Calc 119.6 Estimated GFR > 60 POC Glucose 188 H 265 H 08/19/23 08/19/23 07:05 11:04 WBC RBC Hgb Hct MCV MCH MCHC RDW Plt Count MPV Absolute Nucleated RBC Nucleated RBC % (auto) Creatinine Estim Creat Clear Calc Estimated GFR POC Glucose 176 H 235 H Preliminary micro results at discharge 08/15/23 10:37 Blood Culture - Preliminary Blood - Venous No growth after 48 hours. 08/15/23 10:30 Blood Culture - Preliminary Blood - Venous No growth after 48 hours. Discharge Plan Discharge Anticipated Discharge Date/Time: 08/19/23 12:04 Patient Disposition: Home Health Service Discharge Diagnosis: left great toe ulcer/crush injury s/p amputation right great toe ulcer Referrals: Ace Oh MD [Physician] - 2 Weeks Milena Shoemaker MD [Primary Care Provider] - 1 Week Discharge Medications: New oxycodone 10 mg tablet 10 mg PO Q8H PRN (Reason: pain) Qty: 15 0RF Rx Instructions: Partial Fill upon patient request. Continued atorvastatin 80 mg tablet 80 mg PO BEDTIME carvedilol 12.5 mg tablet 12.5 mg PO BIDWM cetirizine 10 mg Tablet 10 mg PO DAILY chlorthalidone 50 mg tablet 50 mg PO QAM spironolactone 25 mg tablet 25 mg PO QAM magnesium oxide 400 mg (241.3 mg magnesium) tablet 400 mg PO QAM tamsulosin 0.4 mg capsule 0.4 mg PO QAM gabapentin 800 mg tablet 800 mg PO TID baclofen 10 mg tablet 10 mg PO TID nicotine 21 mg/24 hr Patch 24 Hour 1 patch TRANSDERMAL DAILY hydralazine 50 mg tablet 50 mg PO TID epinephrine 0.3 mg/0.3 mL auto-injector 0.3 mg IM DIRECTED PRN (Reason: Allergic Reaction) albuterol sulfate [Ventolin HFA] 90 mcg/actuation HFA aerosol inhaler 2 puff inhalation Q4H PRN (Reason: Wheezing) losartan 100 mg tablet 100 mg PO QAM fluticasone propionate 50 mcg/actuation spray,suspension 1 spray intranasal BID PRN (Reason: Allergy Symptoms) Jardiance 25 mg tablet 25 mg PO QAM Trulicity 4.5 mg/0.5 mL pen injector 4.5 mg subcut QWEEK Changed insulin glargine [Basaglar KwikPen U-100 Insulin] 100 unit/mL (3 mL) insulin pen 40 unit subcut BEDTIME Qty: 3 0RF Held oxycodone 5 mg tablet 5 mg PO Q6H PRN (Reason: severe pain) Hold Instructions: hold while taking higher dose of oxycodone Fiasp FlexTouch U-100 Insulin 100 unit/mL (3 mL) insulin pen 10 unit subcut TIDWM Hold Instructions: follow blood sugars for now Discharge Orders: Discharge Order (Routine); Ordered 08/19/23 Ordered By: Rosanne Jeffery Activity on Discharge: No weight bearing on forefoot on left Stand Alone Forms: Patient Portal Discharge page Activity Restrictions/Additional Instructions: Daily dressings with thick dry gauze, wrap foot with Joe bandage No weight bearing on forefoot on left; ok to use heel for weight bearing Care Plan Goals: see below Health Concerns: left great toe crush injury s/p amputation right great toe ulcer Plan of Treatment: Dressing changes/local wound care for left foot as above call to schedule follow up appointment with general surgery Recommend to decrease dose of Lantus from 60 units to 40 units and hold premeal insulin for now. monitor blood sugar closely at home. gradually increase lantus by 5U per day if blood sugar is consistently above 200. Call PCP office to schedule follow up appointment or if blood sugar above 350 Assessment: see discharge summary
--- NOTE | 2023-08-19 14:30 | MHC.CM.PN ---
IMM 08/19/23 Patient is discharged to home with [facility]. They will provide Wound Management education, and supplies. The patient has arranged transportation home. Wound supplies were sent home with the patient.
--- NOTE | 2023-08-19 14:32 | W.MHC.F2F ---
Service Date Service Date: 08/19/23 Encounter Date of encounter: 08/19/23 Reasons for Services Signs and symptoms assessed: needs long term for wound care/dressing changes - dressings with thick dry gauze, wrap foot with Joe bandage Reason for long term: wound care MD Overseeing Care: Milena Shoemaker Homebound: Leaving the home is medically contraindicated at this time without the asist of a device and/or another person due th the listed conditions above and below. Reason homebound: unsteady gait / fall risk and weakness related to hospital stay Certification: Based on the above findings, I certify that this patient is confined to the home and needs intermittent long term care, physical therapy and/or speech therapy, or continues to need occupational therapy. The patient is under my care, and I have initiated the establishment of the plan of care. The patient will be followed by a physician who will periodically review the plan of care. Time Spent With Patient Time: Total time managing care of this patient today ____ minutes.
== END 2023-08-19 14:33 | disposition home health service (06) | DRG 504 ==
LOC: HO.ED 10:01 → HO.EDOVER 12:33 → HO.S3 20:09
PROVIDERS: Internal Medicine; Nurse Practitioner Acute Care; Nurse Practitioner Family; Surgery; Admitting Provider Physician Assistant; Emergency Provider Emergency Medicine; PCP Family Medicine; Visit Provider Physician Assistant Medical
PROC: 0Y6Q0Z0 Detachment at Left 1st Toe, Complete, Open Approach (ICD-10-PCS; principal; 2023-08-17 10:20)
DX: S92.422B Displaced fracture of distal phalanx of left great toe, initial encounter for open fracture (principal); M86.172 Other acute osteomyelitis, left ankle and foot; W20.8XXA Other cause of strike by thrown, projected or falling object, initial encounter; E11.42 Type 2 diabetes mellitus with diabetic polyneuropathy; E11.69 Type 2 diabetes mellitus with other specified complication; J45.20 Mild intermittent asthma, uncomplicated; L03.032 Cellulitis of left toe; M54.59 Other low back pain; G47.33 Obstructive sleep apnea (adult) (pediatric); G89.29 Other chronic pain; E11.621 Type 2 diabetes mellitus with foot ulcer; L97.529 Non-pressure chronic ulcer of other part of left foot with unspecified severity; L97.519 Non-pressure chronic ulcer of other part of right foot with unspecified severity; F17.210 Nicotine dependence, cigarettes, uncomplicated; Z71.6 Tobacco abuse counseling; Z79.4 Long term (current) use of insulin; Z79.84 Long term (current) use of oral hypoglycemic drugs; Z79.85 Long-term (current) use of injectable non-insulin antidiabetic drugs; Z79.899 Other long term (current) drug therapy
CPT/HCPCS: 36415; 73610; 73630; 80048; 80202; 82565; 82947; 83036; 83605; 85025; 85027; 85652; 86140; 87040; 88305; 88311; 94660; 97116; 97162; 99285; J0665; J0696; J1170; J1644; J2250; J2270; J2405; J2543; J2704; J3010; J3370; J3371

== ENCOUNTER → 2023-08-15 12:06 | Outpatient (BNV) | payer MEDICARE, MEDICAID, SELFPAY | PROVIDERS: Admitting Provider Physician Assistant; Emergency Provider Emergency Medicine; PCP Family Medicine; Visit Provider Surgery | DX: L97.509 Non-pressure chronic ulcer of other part of unspecified foot with unspecified severity (principal) | CPT/HCPCS: 28810; 99024; 99222; 99232; 99499 ==

== ENCOUNTER → 2023-08-15 12:06 | Outpatient (BNV) | payer MEDICARE, MEDICAID, SELFPAY | PROVIDERS: Admitting Provider Physician Assistant; Emergency Provider Emergency Medicine; PCP Family Medicine; Visit Provider Nurse Practitioner Acute Care | DX: L03.032 Cellulitis of left toe (principal); S97.82XA Crushing injury of left foot, initial encounter; E11.69 Type 2 diabetes mellitus with other specified complication | CPT/HCPCS: 99223; 99232; 99239; G0180 ==

== ENCOUNTER 2023-08-29 10:45 | Inpatient (IN) | payer MEDICARE, MEDICAID, SELFPAY ==
[2023-08-29] VITALS (7 sets, daily range): BP systolic 128–161; BP diastolic 53–79; PULSE 62–70; RESP 16–22; TEMP 36.4–36.7; O2SAT 96–99; BMI 23.9
--- NOTE | ~2023-08-29 | MR_ITS ---
MR LUMBAR SPINE WITHOUT CONTRAST CLINICAL INFORMATION: Severe low back pain and bilateral leg numbness. COMPARISON: None available. TECHNIQUE: MRI of the lumbar spine was obtained using routine sequences without contrast. FINDINGS: Hypoplastic ribs the lowermost thoracic type segment. 5 nonrib-bearing lumbar-type vertebral bodies. Lumbar alignment is normal. The vertebral body heights are maintained. Disc volumes are preserved. There is disc desiccation at the L2-L3, L3-L4, and L4-L5 levels. Intraosseous hemangiomas within the L3 and L4 vertebral bodies. Abnormal bone marrow edema involving the right L4-L5 facets and adjacent posterior elements within associated facet joint effusion and significant T2 signal changes within the right paraspinal musculature throughout the entire lumbar spine, findings highly suggestive of right L4-L5 septic facet arthritis with adjacent myositis and phlegmon. Small 1.2 cm probable abscess projecting posteriorly from the upper aspect of the right L4-L5 facet joint on image 14 of series 3. No epidural abscess on these noncontrast series. Conus terminates at the T12-L1 level. L1-L2: Disc contour is normal. No central canal stenosis and no foraminal stenosis. L2-L3: Disc contour is normal. There is bilateral facet arthropathy. No central canal stenosis. There is mild foraminal encroachment bilaterally. L3-L4: Diffuse annular disc bulge and moderate bilateral facet arthropathy and ligamentum flavum thickening. No central canal stenosis. Mild to moderate bilateral foraminal stenosis. L4-L5: There is a diffuse annular disc bulge and there is severe bilateral facet arthropathy and ligamentum flavum thickening. Abnormal marrow signal within the right L4-L5 facets as discussed above. Phlegmon partially effaces the right L4-L5 neural foramen. Disc and facet arthropathy result in mild to moderate bilateral foraminal stenosis as well. L5-S1: Disc contour is normal. No central canal stenosis and no foraminal stenosis. MR/MR lumbar spine wo con IMPRESSION: - Imaging findings are most suggestive of right-sided septic facet arthritis at L4-L5 with significant adjacent paraspinal myositis and phlegmon as well as a probable 1.2 cm abscess projecting posteriorly from the upper aspect of the right L4-L5 facet joint into the right paraspinal soft tissues. Phlegmon partially effaces the right L4-L5 neural foramen. No epidural abscess. - Nonspecific enlarged retroperitoneal lymph nodes.
--- NOTE | 2023-08-29 11:15 | PC.NURSE ---
Addendum entered by Kendra Gonzalez RN 08/29/23 16:06: Patient states that his lower back has a burning sensation, also states he can feel this RN touch his legs but feels weird. Original Note: Patient comes to ED via ambulance due to back pain x1week. Patient states that he had a right great toe amputation 1 week ago and had a vomiting episode and felt a pop in lower back at that time. Patient also states that he has to walk on heel of foot due to surgery. Patient is alert and oriented, skin pwd, vss, lung sounds clear.
--- NOTE | 2023-08-29 11:30 | ED_ITS ---
HPI - Back Pain/Injury General Chief Complaint: Back Pain/Injury Stated Complaint: BACK PAIN Time Seen by Provider: 08/29/23 11:12 Source: patient and old records reviewed Mode of arrival: ambulatory Limitations: no limitations History of Present Illness HPI Narrative: 52 yo male with PMH of IDDM, HTN, HLD, mood disorder, asthma chronic DM ulcers of the great toes just admitted and discharged here for treatment of L great toe ulcer / cellulitis / osteomyelitis - he underwent L great toe amputation 08/16 not on antibiotics given surgery treatment. He went to PCP for post admission visit and c/o low back pain and numbness in both legs but no b/b incontinence, no saddle anesthesia not on IVDA and not on thinners. He reports hx of herniated disc in lumbar spine not sure of level. He also notes he has been more constipated. MD elicited complaint: back pain Pertinent past history: prior back pain Onset (ago): day(s) (1) Timing: progressively worsening Severity: severe Similar Symptoms Previously: Yes Quality: sharp Location: lumbar spine Radiation: left upper leg and right upper leg Exacerbating factors: movement Relieving factors: immobilization Context: unknown Associated symptoms: numbness (R leg more than left) Work related injury: No Related Data Home Medications Medication Instructions Recorded Confirmed albuterol sulfate 90 mcg/actuation 2 puff inhalation Q4H PRN Wheezing 08/15/23 08/15/23 aerosol inhaler (Ventolin HFA) atorvastatin 80 mg tablet 80 mg PO BEDTIME 08/15/23 08/15/23 baclofen 10 mg tablet 10 mg PO TID 08/15/23 08/15/23 carvedilol 12.5 mg tablet 12.5 mg PO BIDWM 08/15/23 08/15/23 cetirizine 10 mg tablet 10 mg PO DAILY 08/15/23 08/15/23 chlorthalidone 50 mg tablet 50 mg PO QAM 08/15/23 08/15/23 dulaglutide 4.5 mg/0.5 mL 4.5 mg subcut QWEEK 08/15/23 08/15/23 subcutaneous pen injector (Trulicity) empagliflozin 25 mg tablet 25 mg PO QAM 08/15/23 08/15/23 (Jardiance) epinephrine 0.3 mg/0.3 mL 0.3 mg IM DIRECTED PRN Allergic 08/15/23 08/15/23 injection, auto-injector Reaction fluticasone propionate 50 1 spray intranasal BID PRN Allergy 08/15/23 08/15/23 mcg/actuation nasal Symptoms spray,suspension gabapentin 800 mg tablet 800 mg PO TID 08/15/23 08/15/23 hydralazine 50 mg tablet 50 mg PO TID 08/15/23 08/15/23 insulin aspart 10 unit subcut TIDWM 08/15/23 08/15/23 (niacinamide)(U-100) 100 unit/mL(3 mL) subcutaneous pen (Fiasp FlexTouch U-100 Insulin) losartan 100 mg tablet 100 mg PO QAM 08/15/23 08/15/23 magnesium oxide 400 mg (241.3 mg 400 mg PO QAM 08/15/23 08/15/23 magnesium) tablet nicotine 21 mg/24 hr daily 1 patch transdermal DAILY 08/15/23 08/15/23 transdermal patch oxycodone 5 mg tablet 5 mg PO Q6H PRN severe pain 08/15/23 08/15/23 spironolactone 25 mg tablet 25 mg PO QAM 08/15/23 08/15/23 tamsulosin 0.4 mg capsule 0.4 mg PO QAM 08/15/23 08/15/23 Previous Rx's Medication Instructions Recorded insulin glargine 100 unit/mL (3 40 unit (0.4 mL) subcut BEDTIME #3 08/19/23 mL) subcutaneous pen (Basaglar mL KwikPen U-100 Insulin) oxycodone 10 mg tablet 10 mg PO Q8H PRN pain #15 tabs 08/19/23 Allergies Allergy/AdvReac Type Severity Reaction Status Date / Time naproxen [From NAPROSYN] AdvReac Severe STOMACH Verified 08/29/23 11:15 UPSET lisinopril [LISINOPRIL] AdvReac Mild COUGH Verified 08/29/23 11:15 SEAFOOD Allergy Unknown ANAPHYLAXIS Uncoded 08/15/23 09:17 Review of Systems 2 Review of Systems: Constitutional : No Weight loss, No Fever, No Chills, ENT/Mouth : No Hearing loss, No Ear Pain, No Nasal Congestion, No Sinus Pain, No Hoarseness, No sore throat, No Rhinorrhea, No Swallowing Difficulty Cardiovascular : No Chest Pain, No SOB Respiratory : No Cough, No Dyspnea Gastrointestinal : No Nausea, No Vomiting, No Diarrhea, No abdominal Pain, No Hematochezia, No Melena Genitourinary : No Dysuria, No Urinary Frequency, No Hematuria, No Urinary Incontinence, Musculoskeletal : positive back pain Skin : No Skin Lesions, No rash Neuro : No Weakness, pos Numbness, No Paresthesias, no loss of bowel or bladder incontinence, no saddle anesthesia all other systems reviewed and are negative [facility] Past Medical History Attestation statement: The following information was validated with the patient. 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 Tobacco Use Status: Current everyday Tobacco user Tobacco use type: Cigarette Cigarette Packs Per Day: 1 Cigarettes Per Day: 20.0 Smoked in Last 30 Days: Yes Second Hand Smoke Exposure: No Use of substances other than those prescribed or required for medical reasons: Yes Substance Use Type: Marijuana Substance Use Frequency: Occasionally Advance Directives: No Advance Directives Information Provided: No service: No Physical Exam 2 Vital Signs: Vital Signs: Last Vital Signs Temp 97.9 F 08/29/23 15:14 Pulse 63 08/29/23 15:14 Resp 19 08/29/23 15:14 BP 136/65 08/29/23 15:14 Pulse Ox 97 08/29/23 15:14 O2 Del Method Room Air 08/29/23 15:14 BMI result Body Mass Index 23.9 Appearance: Alert. Oriented X3. No acute distress. Eyes: Pupils equal, round and reactive to light. ENT: Pharynx normal. Neck: Normal inspection. Neck supple. CVS: Normal heart rate and rhythm. Pulses normal. Respiratory: No respiratory distress. Breath sounds normal. Abdomen: Soft and nontender. Back: ttp along R lower lumbar spine lateral no midline ttp Skin: Skin warm and dry. Normal skin color. Normal skin turgor. Extremities: No lower extremity edema. foot dressings c/d/i no extending erythema or drainage Neuro: Oriented X 3. No motor deficit. No sensory deficit. can feel my hands on exam but states it feels weird and tingly like the legs fell asleep reflexes are intact, R leg has worse symptoms compared to right Course Course Course Narrative: repeat IV dilaudid ordered Medications Administered Discontinued Medications Generic Name Dose Route Start Last Admin Trade Name Delma PRN Reason Stop Dose Admin Hydromorphone HCl 1 mg 08/29/23 11:27 08/29/23 12:02 Hydromorphone Hcl 1 Mg/Ml Syringe IVPUSH 08/29/23 11:28 1 mg ONCE ONE Administration Protocol Hydromorphone HCl 1 mg 08/29/23 14:53 08/29/23 15:08 Hydromorphone Hcl 1 Mg/Ml Syringe IVPUSH 08/29/23 14:54 1 mg ONCE ONE Administration Protocol Ondansetron HCl 4 mg 08/29/23 12:05 08/29/23 12:08 Ondansetron Hcl 4 Mg/2 Ml Vial IVPUSH 08/29/23 12:06 4 mg ONCE ONE Administration Medical Decision Making Medical Decision Making [facility] Narrative: 52 yo male with PMH of IDDM, HTN, HLD, mood disorder, asthma chronic DM ulcers of the great toes s/p surgery of L great toe amputation 08/16 for osteomyelitis who is doing well overall with his wound but no with low back pain on R side radiating down R leg but with bilateral leg numbness - no b/b incontinence no saddle anesthesia but reports bilateral thigh down to leg numbness which is new and not just in one leg which would be radicular, no fevers, no IVDA, no thinners at this time given the bilateral leg numbness will obtain MRI and start on IV dilaudid for pain. He reports improvement in his wounds. Differential Diagnosis Differential Diagnoses: The differential diagnosis associated with the presentation includes back pain, herniation, spasm Admission/Observation Consideration of admission/observation: Escalation of care including admission/observation considered signed out to Dr. Baldwin Lab Data [facility] Lab Attestation statement: I reviewed the patient's lab results. 08/29/23 11:47 08/29/23 11:47 Labs: Lab Results 08/29/23 08/29/23 08/29/23 Range/Units 11:47 12:04 14:15 WBC 14.0 H (4.8-10.8) X10*3/uL RBC 4.20 L (4.60-5.80) X10*6/uL Hgb 12.0 L (14.0-18.0) g/dl Hct 35.8 L (42.0-52.0) % MCV 85.2 (80.0-98.0) fL MCH 28.6 (27.0-33.0) pg MCHC 33.5 (31.0-36.0) g/dl RDW 13.6 (11.0-16.0) % Plt Count 405 H (160-400) X10*3/uL MPV 8.8 L (9.4-12.4) fL Immature Gran % (Auto) 0.9 H (0.0-0.4) % Neut % (Auto) 63.1 (45-73) % Lymph % (Auto) 24.1 (20-40) % Rosebud % (Auto) 8.2 (2-11) % Eos % (Auto) 2.9 (0-4) % Baso % (Auto) 0.8 (0-2) % Lymph # (Auto) 3.4 (1.2-4.9) X10*3/uL Rosebud # (Auto) 1.2 (0.1-1.2) X10*3/uL Eos # (Auto) 0.4 (0.0-0.4) X10*3/uL Baso # (Auto) 0.1 (0.0-0.2) X10*3/uL Abs Immat Gran (auto) 0.12 H (0.00-0.03) X10*3/uL Absolute Neuts (auto) 8.9 H (2.0-8.3) x10*3/uL Absolute Nucleated RBC 0.000 (0.0-0.012) X10*3/uL Nucleated RBC % (auto) 0.0 (0.0-0.2) /100WBC Sodium 136 (135-145) mmol/L Potassium 3.7 (3.3-5.1) mmol/L Chloride 102 (96-108) mmol/L Carbon Dioxide 25 (22-29) mmol/L Anion Gap 13 (12-20) BUN 21 H (9-16) mg/dL Creatinine 1.03 (0.5-1.4) mg/dL Estim Creat Clear Calc 83.0 Estimated GFR > 60 POC Glucose 75 211 H (60-115) mg/dL Random Glucose 74 (60-115) mg/dL Calcium 9.8 D (8.4-10.2) mg/dL Magnesium 2.0 (1.6-2.6) mg/dL Independent Interpretation Interpretation: MRI Independent Historian Clinical information obtained from an independent historian. History obtained from or confirmed by: EMS External Record Review External record reviewed: Inpatient record Critical Care Time Critical Care Time Critical Care Time: Yes Total Critical Care Time: 45 Attestation: repeat IV dilaudid x 2 with improvement in pain, review of records I attest to this time spent taking care of the patient Discharge Plan Discharge Clinical Impression: Acute low back pain Qualifiers: Back pain laterality: bilateral Sciatica presence: unspecified whether sciatica present Qualified Code(s): M54.50 - Low back pain, unspecified Patient Disposition: Still a Patient Prescriptions: No Action atorvastatin 80 mg tablet 80 mg PO BEDTIME carvedilol 12.5 mg tablet 12.5 mg PO BIDWM cetirizine 10 mg Tablet 10 mg PO DAILY chlorthalidone 50 mg tablet 50 mg PO QAM spironolactone 25 mg tablet 25 mg PO QAM magnesium oxide 400 mg (241.3 mg magnesium) tablet 400 mg PO QAM tamsulosin 0.4 mg capsule 0.4 mg PO QAM gabapentin 800 mg tablet 800 mg PO TID baclofen 10 mg tablet 10 mg PO TID nicotine 21 mg/24 hr Patch 24 Hour 1 patch TRANSDERMAL DAILY hydralazine 50 mg tablet 50 mg PO TID epinephrine 0.3 mg/0.3 mL auto-injector 0.3 mg IM DIRECTED PRN (Reason: Allergic Reaction) albuterol sulfate [Ventolin HFA] 90 mcg/actuation HFA aerosol inhaler 2 puff inhalation Q4H PRN (Reason: Wheezing) losartan 100 mg tablet 100 mg PO QAM fluticasone propionate 50 mcg/actuation spray,suspension 1 spray intranasal BID PRN (Reason: Allergy Symptoms) oxycodone 5 mg tablet 5 mg PO Q6H PRN (Reason: severe pain) Hold Instructions: hold while taking higher dose of oxycodone Jardiance 25 mg tablet 25 mg PO QAM Fiasp FlexTouch U-100 Insulin 100 unit/mL (3 mL) insulin pen 10 unit subcut TIDWM Hold Instructions: follow blood sugars for now Trulicity 4.5 mg/0.5 mL pen injector 4.5 mg subcut QWEEK oxycodone 10 mg tablet 10 mg PO Q8H PRN (Reason: pain) Qty: 15 0RF Rx Instructions: Partial Fill upon patient request. insulin glargine [Basaglar KwikPen U-100 Insulin] 100 unit/mL (3 mL) insulin pen 40 unit subcut BEDTIME Qty: 3 0RF
--- NOTE | 2023-08-29 11:52 | PC.NURSE ---
nurse was called to room- per pt CGM BS [id number] pt stated he was having tunnel vision. Spoke with MD Dinh pt can eat at this time. Pt provided with 8oz of orange juice
[2023-08-29 11:53] LABS: MANUAL DIFF FLAG NO
[2023-08-29 11:58] LABS: Basophils Absolute Auto 0.1 X10*3/uL (0.0-0.2); Basophils Percent Auto 0.8 % (0-2); Eosinophils Absolute Auto 0.4 X10*3/uL (0.0-0.4); Eosinophils Percent Auto 2.9 % (0-4); Hematocrit 35.8 % (42.0-52.0); Imm Gran Abs Auto 0.12 X10*3/uL (0.00-0.03); Imm Gran Pct Auto 0.9 % (0.0-0.4); Lymphocytes Absolute Auto 3.4 X10*3/uL (1.2-4.9); Lymphocytes Percent Auto 24.1 % (20-40); Mean Corpuscular HGB Conc 33.5 g/dl (31.0-36.0); Mean Corpuscular Hemoglobin 28.6 pg (27.0-33.0); Mean Corpuscular Volume 85.2 fL (80.0-98.0); Mean Platelet Volume 8.8 fL (9.4-12.4); Monocytes Absolute Auto 1.2 X10*3/uL (0.1-1.2); Monocytes Percent Auto 8.2 % (2-11); Neutrophils Absolute Auto 8.9 x10*3/uL (2.0-8.3); Neutrophils Percent Auto 63.1 % (45-73); Platelet Count 405 X10*3/uL (160-400); Red Cell Distribution Width 13.6 % (11.0-16.0)
[2023-08-29] MEDS: HYDROmorphone HCl 1 MG/ML SYRINGE IVPUSH ×2 (12:02→15:08)
[2023-08-29 12:08] LABS: Anion Gap 13 (12-20); Blood Urea Nitrogen 21 mg/dL (9-16); Calcium 9.8 mg/dL (8.4-10.2); Carbon Dioxide 25 mmol/L (22-29); Chloride 102 mmol/L (96-108); Estimated Glomerular Filt Rate > 60; Glucose Random 74 mg/dL (60-115); Potassium 3.7 mmol/L (3.3-5.1); Sodium 136 mmol/L (135-145)
[2023-08-29] MEDS: ondansetron HCL 4 MG/2 ML VIAL IVPUSH (12:08)
[2023-08-29 12:09] LABS: Glucose, Whole Blood 75 mg/dL (60-115)
[2023-08-29 14:18] LABS: Glucose, Whole Blood 211 mg/dL (60-115)
--- NOTE | 2023-08-29 14:51 | PC.NURSE ---
Patient currently in bed with 10/10 pain, patient educated to stay NPO. MRI intake form completed at this time.
[2023-08-29 18:54] LABS: Appearance Urine Clear; Color Urine Dark Yellow; Glucose Urine UA >=1000 mg/dL (Negative); Leukocyte Esterase Urine Negative (Negative); Nitrite Urine Negative (Negative); PH 5.5 (5.0-9.0); Specific Gravity - Urine >= 1.030 (1.005-1.025); UMIC TRIGGER UACC YES; Urine Blood Negative (Negative); Urine Ketones Trace mg/dL (Negative); Urine Protein 300 (3+) mg/dL (Neg-Trace)
[2023-08-29 19:06] LABS: Bacteria Urine None Seen (None Seen); RBC Urine 0-2 /HPF (0-2); WBC Urine 0-5 /HPF (0-5)
[2023-08-29 19:27] LABS: C Reactive Protein 1.36 mg/dL (< or = 0.50)
[2023-08-29 19:48] LABS: Lactic Acid 0.8 mmol/L (0.5-2.0)
[2023-08-29 19:54] LABS: Erythrocyte Sedimentation Rate 90 MM/HR (0-15)
[2023-08-29] MEDS: Piperacillin Sodium/Tazobactam 4.5 GM in 0.9 % Sodium Chloride 100 ML IV (20:20)
[2023-08-29] MEDS: vancomycin HCL 1,000 MG, vancomycin HCL 750 MG in 0.9 % Sodium Chloride 500 ML 267.5 MG IV (20:20)
[2023-08-29] MEDS: HYDROmorphone HCl 2 MG/ML VIAL IVPUSH (20:20)
--- NOTE | 2023-08-29 20:37 | PHA.MEDREC ---
Pharmacy Consult ? Medication Reconciliation Pharmacy has completed the medication reconciliation. Confirmed medications with patient and through claim history.
--- NOTE | 2023-08-29 21:14 | PHA.PROG ---
Admission Date/Time: August 29, 2023 20:01 Indication: Bone & Joint Weight in k.214 kg Adjusted body weight in K.5 kg Jackson body weight in K.4 kg Obesity Dosing Indication % IBW: 104% Serum Creatinine - Last 168 Hours 08/29/23 11:47 Creatinine 1.03 Estimated CrCl and GFR - Last 168 Hours 08/29/23 11:47 Estim Creat Clear Calc 83.0 Estimated GFR > 60 Vancomycin Loading Dose: 1750 mg Current Vancomycin Dosing Regimen: 1000 mg Q12H Date and Time for next Vancomycin Level to be drawn: 08/30 @ 0600 Pharmacist Comments on Vancomycin Plan: patient received an adequate laod dose in the ER 08/28 @ 2019 maintenance dose vancomycin 1000 mg Q12H is scheduled to start 08/29 @ 0800. Predicted AUC 571 with a trough of 18.2 level will be drawn prior to 4th dose Pharmacy will monitor renal function daily Sharonda Casillas PharmD Vancomycin dosing will take advantage of [employer] as a clinical decision support tool that uses Bayesian modeling to calculate individual patient's pharmacokinetic parameters and forecast the patient's drug concentration time course with the target goal AUC 24 range of 400 - 600 mg/L/hr.
--- NOTE | 2023-08-29 21:19 | P.HPHOSP_ITS ---
History of Present Illness Date of Service: 08/29/23 Attending physician on admission: Anastasia Cottrell Chief Complaint: Back pain Gallo Saini is a 52 years old man with past medical history significant for type 2 diabetes mellitus on insulin, essential hypertension, asthma, diabetic polyneuropathy and recent hospitalization due to acute cellulitis and osteomyelitis of the left great toe status post amputation presents to the emergency department complaining of low mid back pain that has been getting worse over the last few days. The pains radiate to the right leg and increases with movement. He denied any associated symptoms such as fever, nausea, vomiting, dizziness or headache. He did not report any cardiopulmonary, gastrointestinal or genitourinary symptoms. He has been taking oxycodone for pain. In the ED, he was found to have normal vital signs. Blood workup showed leukocytosis, 14.0. There is anemia which is at baseline. There are no electrolyte imbalances and renal function is adequate. CRP is elevated. He underwent a lumbar spine MRI that showed findings suggestive of right-sided septic facet arthritis at L4/L5 with significant adjacent paraspinal miosis and phlegmon (1.2 cm abscess projecting posteriorly from the upper aspect of the right L4/L5 facet joint into the right paraspinal soft tissue. There are no epidural abscess. ED tx: Vancomycin 1 g IV, Dilaudid 4 mg (total) IV, Zosyn 4.5 g IV, Zofran 4 mg IV. Review of Systems 2 Review of Systems: All 12 systems were reviewed and normal except as noted in HPI. 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 Tobacco Use Status: Current everyday Tobacco user Tobacco use type: Cigarette Cigarette Packs Per Day: 1 Cigarettes Per Day: 20.0 Smoked in Last 30 Days: Yes Second Hand Smoke Exposure: No Use of substances other than those prescribed or required for medical reasons: Yes Substance Use Type: Marijuana Substance Use Frequency: Occasionally Advance Directives: No Advance Directives Information Provided: No service: No Meds Allergies Allergy/AdvReac Type Severity Reaction Status Date / Time naproxen [From NAPROSYN] AdvReac Severe STOMACH Verified 08/29/23 11:15 UPSET lisinopril [LISINOPRIL] AdvReac Mild COUGH Verified 08/29/23 11:15 SEAFOOD Allergy Unknown ANAPHYLAXIS Uncoded 08/15/23 09:17 Active Medications: Current Medications Acetaminophen (Acetaminophen 325 Mg Tablet) 975 mg PO Q6H PRN PRN Reason: Pain, Mild (Pain Scale 1-3) Heparin Sodium (Porcine) (Heparin Sodium,Porcine 5,000 Unit/Ml Vial) 5,000 unit SUBCUT Q8H [facility] Hydromorphone HCl (Hydromorphone Hcl 1 Mg/Ml Syringe) 1 mg IVPUSH Q4H PRN; Protocol PRN Reason: Pain, Severe (Pain Scale 7-10) Piperacillin Sod/Tazobactam (Sod 4.5 gm/ Sodium Chloride) 100 mls @ 200 mls/hr IV Q6H [place] Vancomycin HCl 1,000 mg/ (Sodium Chloride) 270 mls @ 270 mls/hr IV Q12H [facility] Pharmacy Consult (Consult Rx Vancomycin Dosing) 1 each MISCELLANE DAILY PRN PRN Reason: Consult order Sodium Chloride (0.9 % Sodium Chloride Flush 3 Ml Syringe) 3 ml IVFLUSH QSHIFT [facility] Home Medications Medication Instructions Recorded Confirmed Last Taken Type albuterol sulfate 90 mcg/actuation 2 puff inhalation Q4H PRN Wheezing 08/15/23 08/29/23 08/29/23 History aerosol inhaler (Ventolin HFA) atorvastatin 80 mg tablet 80 mg PO BEDTIME 08/15/23 08/29/23 08/29/23 History baclofen 10 mg tablet 10 mg PO TID 08/15/23 08/29/23 08/29/23 History carvedilol 12.5 mg tablet 12.5 mg PO BIDWM 08/15/23 08/29/23 08/29/23 History cetirizine 10 mg tablet 10 mg PO DAILY 08/15/23 08/29/23 08/29/23 History chlorthalidone 50 mg tablet 50 mg PO QAM 08/15/23 08/29/23 08/29/23 History dulaglutide 4.5 mg/0.5 mL 4.5 mg subcut FR 08/15/23 08/29/23 08/26/23 History subcutaneous pen injector (Trulicity) empagliflozin 25 mg tablet 25 mg PO QAM 08/15/23 08/29/23 08/29/23 History (Jardiance) epinephrine 0.3 mg/0.3 mL 0.3 mg IM DIRECTED PRN Allergic 08/15/23 08/29/23 Unknown History injection, auto-injector Reaction fluticasone propionate 50 1 spray intranasal BID PRN Allergy 08/15/23 08/29/23 Unknown History mcg/actuation nasal Symptoms spray,suspension gabapentin 800 mg tablet 800 mg PO TID 08/15/23 08/29/23 08/29/23 History hydralazine 50 mg tablet 50 mg PO TID 08/15/23 08/29/23 08/29/23 History insulin aspart 0 unit subcut TIDAC 08/15/23 08/29/23 08/29/23 History (niacinamide)(U-100) 100 unit/mL(3 mL) subcutaneous pen (Fiasp FlexTouch U-100 Insulin) losartan 100 mg tablet 100 mg PO QAM 08/15/23 08/29/23 08/29/23 History magnesium oxide 400 mg (241.3 mg 400 mg PO QAM 08/15/23 08/29/23 08/29/23 History magnesium) tablet nicotine 21 mg/24 hr daily 1 patch transdermal DAILY 08/15/23 08/29/23 08/29/23 History transdermal patch oxycodone 5 mg tablet 5 mg PO Q6H PRN severe pain 08/15/23 08/29/23 08/14/23 History spironolactone 25 mg tablet 25 mg PO QAM 08/15/23 08/29/23 08/29/23 History tamsulosin 0.4 mg capsule 0.4 mg PO QAM 08/15/23 08/29/23 08/29/23 History insulin glargine 100 unit/mL (3 30 unit subcut BEDTIME 08/29/23 08/29/23 08/28/23 History mL) subcutaneous pen (Basaglar KwikPen U-100 Insulin) Physical Exam 2 Vital Signs and Narrative: Vital Signs: Last Vital Signs Temp 97.8 F 08/29/23 20:28 Pulse 65 08/29/23 20:28 Resp 20 08/29/23 20:28 BP 137/70 08/29/23 20:28 Pulse Ox 97 08/29/23 20:28 O2 Del Method Room Air 08/29/23 20:28 BMI result Body Mass Index 23.9 Constitutional - Awake and Alert, No apparent distress. Looks uncomfortable due to back pain. HEENT- pupils equally round. Normal sclerae. Heart - S1S2, RRR. Lungs - Normal lung expansion, Normal respiratory effort, No respiratory distress, CTA bilaterally Abdomen - NT / ND; +BS; No rebound or guarding - No CVA tenderness Extremities - no calf tenderness bilaterally, no swelling. Left 1st toe amputation site: Stitches in place. No erythema. No swelling. No discharges. Musculoskeletal - mid lower back tenderness Skin - Warm/Dry Neurological - Alert & oriented x3. No focal weakness grossly noted. Normal speech. Psychological - Appropriate affect Results Labs 08/29/23 11:47 08/29/23 11:47 Labs: Laboratory Results - last 24 hr 08/29/23 08/29/23 08/29/23 11:47 12:04 14:15 MCV 85.2 MCH 28.6 MCHC 33.5 RDW 13.6 Plt Count 405 H MPV 8.8 L Immature Gran % (Auto) 0.9 H Neut % (Auto) 63.1 Lymph % (Auto) 24.1 [place] % (Auto) 8.2 Eos % (Auto) 2.9 Baso % (Auto) 0.8 Lymph # (Auto) 3.4 [place] # (Auto) 1.2 Eos # (Auto) 0.4 Baso # (Auto) 0.1 Abs Immat Gran (auto) 0.12 H Absolute Neuts (auto) 8.9 H Absolute Nucleated RBC 0.000 Nucleated RBC % (auto) 0.0 ESR 90 H Anion Gap 13 Estim Creat Clear Calc 83.0 Estimated GFR > 60 POC Glucose 75 211 H Random Glucose 74 Lactic Acid Calcium 9.8 D Magnesium 2.0 C-Reactive Protein 1.36 H Urine Color Urine Appearance Urine pH Ur Specific [place] Urine Protein Urine Glucose (UA) Urine Ketones Urine Blood Urine Nitrite Ur Leukocyte Esterase Urine RBC Urine WBC Ur Squamous Epith Cells Urine Bacteria Hyaline Casts 08/29/23 08/29/23 18:43 19:25 MCV MCH MCHC RDW Plt Count MPV Immature Gran % (Auto) Neut % (Auto) Lymph % (Auto) [place] % (Auto) Eos % (Auto) Baso % (Auto) Lymph # (Auto) [place] # (Auto) Eos # (Auto) Baso # (Auto) Abs Immat Gran (auto) Absolute Neuts (auto) Absolute Nucleated RBC Nucleated RBC % (auto) ESR Anion Gap Estim Creat Clear Calc Estimated GFR POC Glucose Random Glucose Lactic Acid 0.8 Calcium Magnesium C-Reactive Protein Urine Color Dark Yellow Urine Appearance Clear Urine pH 5.5 Ur Specific [place] >= 1.030 H Urine Protein 300 (3+) H Urine Glucose (UA) >=1000 H Urine Ketones Trace Urine Blood Negative Urine Nitrite Negative Ur Leukocyte Esterase Negative Urine RBC 0-2 Urine WBC 0-5 Ur Squamous Epith Cells 3-5 Urine Bacteria None Seen Hyaline Casts 3-5 Imaging Radiologist's Impressions: Impressions Lumbar Spine MRI 08/29/23 17:45 IMPRESSION: - Imaging findings are most suggestive of right-sided septic facet arthritis at L4-L5 with significant adjacent paraspinal myositis and phlegmon as well as a probable 1.2 cm abscess projecting posteriorly from the upper aspect of the right L4-L5 facet joint into the right paraspinal soft tissues. Phlegmon partially effaces the right L4-L5 neural foramen. No epidural abscess. - Nonspecific enlarged retroperitoneal lymph nodes. Assessment and Plan (1) Acute low back pain: Qualifiers: Back pain laterality: bilateral Sciatica presence: unspecified whether sciatica present Qualified Code(s): M54.50 - Low back pain, unspecified Status: Acute (2) Epidural abscess, L2-L5: Status: Acute (3) MAURI (obstructive sleep apnea): Status: Acute (4) Asthma: Qualifiers: Asthma severity: mild Asthma persistence: intermittent Asthma complication type: unspecified Qualified Code(s): J45.20 - Mild intermittent asthma, uncomplicated Status: Acute (5) Type 2 diabetes mellitus: Qualifiers: Diabetes mellitus correction insulin use: with termite technician use Diabetes mellitus complication status: without complication Qualified Code(s): E11.9 - Type 2 diabetes mellitus without complications; Z79.4 - half-way (current) use of insulin Status: Acute Plan Gallo Saini is a 52 years old man admitted with: * Back pain secondary to right-sided septic facet arthritis at L4-L5 associated with adjacent paraspinal myositis phlegmon and abscess. Admit to hospitalist service. Continue empiric IV antibiotic therapy with Zosyn and vancomycin. According to ED provider case has been discussed with IR recommending antibiotics. Pain control with Dilaudid. * Type 2 diabetes mellitus. Continue Trulicity, Jardiance. Glargine and insulin sliding scale. * Essential hypertension. Continue chlorthalidone, losartan, spironolactone and hydralazine. * Hyperlipidemia. Continue atorvastatin. * Diabetic neuropathy. Continue gabapentin. * BPH. Continue tamsulosin. * Asthma, mild intermittent. No symptoms at this time. Albuterol as needed. * MAURI. Continue CPAP * Recent s/p less for toe amputation (surgical area looks clean without erythema or discharges). DVT prophylaxis-heparin subcut Code status-full Patient will need hospitalization for at least 2 midnights for IV antibiotic therapy and possible evaluation by IR. Quality Stroke Does the patient have a stroke diagnosis?: No VTE Prior VTE?: No VTE Risk Level:: Medical - moderate - high VTE Device Contraindication: Treatment Not Indicated VTE Drug Contraindication: N/A - Med Ordered
[2023-08-29 23:59] LABS: Glucose, Whole Blood 231 mg/dL (60-115)
[2023-08-30] MEDS: Insulin Lispro 100 UNIT/ML 3 ML VIAL SUBCUT ×3 (00:07→13:41)
[2023-08-30] MEDS: HYDROmorphone HCl 1 MG/ML SYRINGE IVPUSH ×5 (00:11→17:09)
[2023-08-30] MEDS: 0.9 % Sodium Chloride Flush 3 ML SYRINGE IVFLUSH ×3 (00:11→15:00)
[2023-08-30 00:14] VITALS: PULSE 62; O2SAT 97
[2023-08-30] MEDS: Piperacillin Sodium/Tazobactam 4.5 GM in 0.9 % Sodium Chloride 100 ML IV ×3 (04:12→15:04)
[2023-08-30 05:14] LABS: MANUAL DIFF FLAG NO
[2023-08-30 05:18] LABS: Basophils Absolute Auto 0.1 X10*3/uL (0.0-0.2); Basophils Percent Auto 1.2 % (0-2); Eosinophils Absolute Auto 0.5 X10*3/uL (0.0-0.4); Hematocrit 34.3 % (42.0-52.0); Imm Gran Abs Auto 0.06 X10*3/uL (0.00-0.03); Imm Gran Pct Auto 0.7 % (0.0-0.4); Lymphocytes Absolute Auto 2.4 X10*3/uL (1.2-4.9); Lymphocytes Percent Auto 27.4 % (20-40); Mean Corpuscular HGB Conc 32.1 g/dl (31.0-36.0); Mean Corpuscular Hemoglobin 27.6 pg (27.0-33.0); Mean Corpuscular Volume 86.2 fL (80.0-98.0); Neutrophils Absolute Auto 4.6 x10*3/uL (2.0-8.3); Neutrophils Percent Auto 53.7 % (45-73); Platelet Count 338 X10*3/uL (160-400); Red Blood Count 3.98 X10*6/uL (4.60-5.80); Red Cell Distribution Width 13.4 % (11.0-16.0); White Blood Count 8.6 X10*3/uL (4.8-10.8)
[2023-08-30 05:25] VITALS: BP 128/58; PULSE 69; RESP 16; O2SAT 94
[2023-08-30 05:36] LABS: Alanine Aminotransferase 14 U/L (0-40); Albumin Level 3.2 g/dL (3.5-5.0); Alkaline Phosphatase 89 U/L (39-117); Anion Gap 12 (12-20); Aspartate Amino Transferase 14 U/L (5-37); Bilirubin Total 0.6 mg/dL (0.0-1.0); Blood Urea Nitrogen 22 mg/dL (9-16); Calcium 8.6 mg/dL (8.4-10.2); Carbon Dioxide 24 mmol/L (22-29); Chloride 106 mmol/L (96-108); Creatinine Clr Calc Pharmacy 104.2; Estimated Glomerular Filt Rate > 60; Glucose Random 171 mg/dL (60-115); Potassium 4.2 mmol/L (3.3-5.1); Sodium 138 mmol/L (135-145); Total Protein 7.1 g/dL (6.5-8.0)
[2023-08-30 07:19] LABS: Glucose, Whole Blood 173 mg/dL (60-115)
[2023-08-30 08:36] VITALS: BP 114/70; PULSE 70; RESP 18; O2SAT 97
[2023-08-30] MEDS: ondansetron HCL 4 MG/2 ML VIAL IVPUSH ×2 (08:36→15:02)
[2023-08-30] MEDS: Gabapentin 400 MG CAPSULE 800 MG PO ×2 (08:40→14:58)
[2023-08-30] MEDS: Spironolactone 25 MG TABLET PO (08:40)
[2023-08-30] MEDS: Magnesium Oxide 400 MG TABLET PO (08:41)
[2023-08-30] MEDS: Baclofen 10 MG TABLET PO ×2 (08:41→14:58)
[2023-08-30] MEDS: Losartan Potassium 50 MG TABLET 100 MG PO (08:41)
[2023-08-30] MEDS: Tamsulosin HCL 0.4 MG CAPSULE PO (08:41)
[2023-08-30] MEDS: carvediloL 12.5 MG TABLET PO ×2 (08:42→17:08)
[2023-08-30] MEDS: Loratadine 10 MG TABLET PO (08:42)
[2023-08-30] MEDS: hydrALAZINE HCl 50 MG TABLET PO ×2 (08:42→14:58)
[2023-08-30] MEDS: Heparin Sodium,Porcine 5,000 UNIT/ML VIAL 5000 UNIT SUBCUT ×2 (08:43→17:11)
[2023-08-30] MEDS: Nicotine 21 MG PATCH.TD24 TRANSDERMA (08:43)
[2023-08-30] MEDS: vancomycin HCL 1,000 MG in 0.9 % Sodium Chloride 250 ML 270 MG IV (08:46)
[2023-08-30] MEDS: Empagliflozin 25 MG TABLET PO (09:37)
[2023-08-30] MEDS: hydroCHLOROthiazide 50 MG TABLET PO (09:37)
--- NOTE | 2023-08-30 11:50 | PM.NEUROCN ---
History of Present Illness Data of Consult Service Date: 08/30/23 Primary Care Provider: Milena Shoemaker MD HPI Reason for consult: Severe low back pain This is a 52 years old man with past medical history significant for type 2 diabetes mellitus on insulin, essential hypertension, asthma, diabetic polyneuropathy and recent hospitalization due to acute cellulitis and osteomyelitis of the left great toe status post amputation 2 wks ago presents to the emergency department complaining of severe right low back pain that has been getting worse over the last few days. Barely ableto walk. Some pain radiating into thighs. Skin sensitivity in right lower lumbar area. The pains radiate to the right leg and increases with movement. He denied any associated symptoms such as fever, nausea, vomiting, dizziness or headache. He has been taking oxycodone for pain. In the ED, he was found to have normal vital signs. Blood workup showed leukocytosis, 14.0. There is anemia which is at baseline. There are no electrolyte imbalances and renal function is adequate. CRP is elevated. Lumbar spine MRI shows right-sided septic facet arthritis at L4/L5 with significant adjacent paraspinal myositis and phlegmon (1.2 cm abscess projecting posteriorly from the upper aspect of the right L4/L5 facet joint into the right paraspinal soft tissue. There are no epidural abscess. Review of Systems Review of Systems: All 12 systems were reviewed and normal except as noted in HPI. 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 Tobacco Use Status: Current everyday Tobacco user Tobacco use type: Cigarette Cigarette Packs Per Day: 1 Cigarettes Per Day: 20.0 Smoked in Last 30 Days: Yes Second Hand Smoke Exposure: No Use of substances other than those prescribed or required for medical reasons: Yes Substance Use Type: Marijuana Substance Use Frequency: Occasionally Advance Directives: Yes Advance Directives on File: Yes Advance Directives Date on File: 08/30/23 service: No Meds Allergies Allergy/AdvReac Type Severity Reaction Status Date / Time naproxen [From NAPROSYN] AdvReac Severe STOMACH Verified 08/29/23 11:15 UPSET lisinopril [LISINOPRIL] AdvReac Mild COUGH Verified 08/29/23 11:15 SEAFOOD Allergy Unknown ANAPHYLAXIS Uncoded 08/15/23 09:17 Active Medications: Current Medications Acetaminophen (Acetaminophen 325 Mg Tablet) 975 mg PO Q6H PRN PRN Reason: Pain, Mild (Pain Scale 1-3) Albuterol Sulfate (Albuterol Sulfate 90 Mcg 8 Gm Inhaler) 2 puff INHALE Q4H PRN PRN Reason: Wheezing Atorvastatin Calcium (Atorvastatin Calcium 80 Mg Tablet) 80 mg PO BEDTIME [facility] Baclofen (Baclofen 10 Mg Tablet) 10 mg PO TID [facility] Last Admin: 08/30/23 08:41 Dose: 10 mg Carvedilol (Carvedilol 12.5 Mg Tablet) 12.5 mg PO BIDWM [facility]; Protocol Last Admin: 08/30/23 08:42 Dose: 12.5 mg Dextrose (Dextrose 50 % 25 Gm/50 Ml Syringe) 25 gm IVPUSH Q15M PRN; Protocol PRN Reason: per Hypoglycemia Standing Ord. Empagliflozin (Empagliflozin 25 Mg Tablet) 25 mg PO DAILY [facility] Last Admin: 08/30/23 09:37 Dose: 25 mg Fluticasone Propionate (Fluticasone Propionate Nasal 16 Gm [place]) 1 spray NOSTRIL-B BID PRN PRN Reason: Allergy Symptoms Gabapentin (Gabapentin 400 Mg Capsule) 800 mg PO TID [facility] Last Admin: 08/30/23 08:40 Dose: 800 mg Glucose (Glucose Gel 15 Gm Gel..Gram.) 15 gm PO Q15M PRN; Protocol PRN Reason: per Hypoglycemia Standing Ord. Heparin Sodium (Porcine) (Heparin Sodium,Porcine 5,000 Unit/Ml Vial) 5,000 unit SUBCUT Q8H [facility] Last Admin: 08/30/23 08:43 Dose: 5,000 unit Hydralazine HCl (Hydralazine Hcl 50 Mg Tablet) 50 mg PO TID [facility]; Protocol Last Admin: 08/30/23 08:42 Dose: 50 mg Hydrochlorothiazide (Hydrochlorothiazide 50 Mg Tablet) 50 mg PO DAILY [facility] Last Admin: 08/30/23 09:37 Dose: 50 mg Hydromorphone HCl (Hydromorphone Hcl 1 Mg/Ml Syringe) 1 mg IVPUSH Q4H PRN; Protocol PRN Reason: Pain, Severe (Pain Scale 7-10) Last Admin: 08/30/23 08:38 Dose: 1 mg Piperacillin Sod/Tazobactam (Sod 4.5 gm/ Sodium Chloride) 100 mls @ 200 mls/hr IV Q6H [facility] Last Infusion: 08/30/23 09:37 Dose: Infused Vancomycin HCl 1,000 mg/ (Sodium Chloride) 270 mls @ 270 mls/hr IV Q12H [facility] Last Admin: 08/30/23 08:46 Dose: 270 mls/hr Insulin Glargine (Insulin Glargine,Hum.Rec.Anlog 100 Unit/Ml 10 Ml Vial) 30 unit SUBCUT BEDTIME [facility] Insulin Human Lispro (Insulin Lispro 100 Unit/Ml 3 Ml Vial) 0 unit SUBCUT QIDACHS [facility]; Protocol Last Admin: 08/30/23 07:36 Dose: 2 unit Loratadine (Loratadine 10 Mg Tablet) 10 mg PO DAILY [facility] Last Admin: 08/30/23 08:42 Dose: 10 mg Losartan Potassium (Losartan Potassium 50 Mg Tablet) 100 mg PO DAILY [facility]; Protocol Last Admin: 08/30/23 08:41 Dose: 100 mg Magnesium Oxide (Magnesium Oxide 400 Mg Tablet) 400 mg PO DAILY [facility] Last Admin: 08/30/23 08:41 Dose: 400 mg Nicotine (Nicotine 21 Mg Patch.Td24) 21 mg TRANSDERMA DAILY [facility] Last Admin: 08/30/23 08:43 Dose: 21 mg Ondansetron HCl (Ondansetron Hcl 4 Mg/2 Ml Vial) 4 mg IVPUSH Q6H PRN PRN Reason: Nausea and Vomiting Last Admin: 08/30/23 08:36 Dose: 4 mg Pharmacy Consult (Consult Rx Vancomycin Dosing) 1 each MISCELLANE DAILY PRN PRN Reason: Consult order Sodium Chloride (0.9 % Sodium Chloride Flush 3 Ml Syringe) 3 ml IVFLUSH QSHIFT [facility] Last Admin: 08/30/23 07:43 Dose: 3 ml Spironolactone (Spironolactone 25 Mg Tablet) 25 mg PO DAILY [facility]; Protocol Last Admin: 08/30/23 08:40 Dose: 25 mg Tamsulosin HCl (Tamsulosin Hcl 0.4 Mg Capsule) 0.4 mg PO DAILY [facility] Last Admin: 08/30/23 08:41 Dose: 0.4 mg Home Medications Medication Instructions Recorded Confirmed Last Taken Type albuterol sulfate 90 mcg/actuation 2 puff inhalation Q4H PRN Wheezing 08/15/23 08/29/23 08/29/23 History aerosol inhaler (Ventolin HFA) atorvastatin 80 mg tablet 80 mg PO BEDTIME 08/15/23 08/29/23 08/29/23 History baclofen 10 mg tablet 10 mg PO TID 08/15/23 08/29/23 08/29/23 History carvedilol 12.5 mg tablet 12.5 mg PO BIDWM 08/15/23 08/29/23 08/29/23 History cetirizine 10 mg tablet 10 mg PO DAILY 08/15/23 08/29/23 08/29/23 History chlorthalidone 50 mg tablet 50 mg PO QAM 08/15/23 08/29/23 08/29/23 History dulaglutide 4.5 mg/0.5 mL 4.5 mg subcut FR 08/15/23 08/29/23 08/26/23 History subcutaneous pen injector (Trulicity) empagliflozin 25 mg tablet 25 mg PO QAM 08/15/23 08/29/23 08/29/23 History (Jardiance) epinephrine 0.3 mg/0.3 mL 0.3 mg IM DIRECTED PRN Allergic 08/15/23 08/29/23 Unknown History injection, auto-injector Reaction fluticasone propionate 50 1 spray intranasal BID PRN Allergy 08/15/23 08/29/23 Unknown History mcg/actuation nasal Symptoms spray,suspension gabapentin 800 mg tablet 800 mg PO TID 08/15/23 08/29/23 08/29/23 History hydralazine 50 mg tablet 50 mg PO TID 08/15/23 08/29/23 08/29/23 History insulin aspart 0 unit subcut TIDAC 08/15/23 08/29/23 08/29/23 History (niacinamide)(U-100) 100 unit/mL(3 mL) subcutaneous pen (Fiasp FlexTouch U-100 Insulin) losartan 100 mg tablet 100 mg PO QAM 08/15/23 08/29/23 08/29/23 History magnesium oxide 400 mg (241.3 mg 400 mg PO QAM 08/15/23 08/29/23 08/29/23 History magnesium) tablet nicotine 21 mg/24 hr daily 1 patch transdermal DAILY 08/15/23 08/29/23 08/29/23 History transdermal patch oxycodone 5 mg tablet 5 mg PO Q6H PRN severe pain 08/15/23 08/29/23 08/14/23 History spironolactone 25 mg tablet 25 mg PO QAM 08/15/23 08/29/23 08/29/23 History tamsulosin 0.4 mg capsule 0.4 mg PO QAM 08/15/23 08/29/23 08/29/23 History insulin glargine 100 unit/mL (3 30 unit subcut BEDTIME 08/29/23 08/29/23 08/28/23 History mL) subcutaneous pen (Basaglar KwikPen U-100 Insulin) Physical Exam Vital Signs: Vital Signs: Last Vital Signs Temp 97.6 F 08/29/23 23:44 Pulse 70 08/30/23 08:36 Resp 18 08/30/23 08:36 BP 114/70 08/30/23 08:36 Pulse Ox 97 08/30/23 08:36 O2 Del Method Room Air 08/30/23 08:36 BMI result Body Mass Index 23.9 Neuro: Other: Hyperpathia of right lower back . Limited motor testing of legs because of pain. DTRS preserved. No sensory deficit. Plantars flexor. Results Labs 08/30/23 04:51 08/30/23 04:51 Labs: Short CBC 08/29/23 08/30/23 Range/Units 11:47 04:51 WBC 14.0 H 8.6 (4.8-10.8) X10*3/uL Hgb 12.0 L 11.0 L (14.0-18.0) g/dl Hct 35.8 L 34.3 L (42.0-52.0) % Plt Count 405 H 338 (160-400) X10*3/uL [facility] 08/29/23 08/30/23 11:47 04:51 Sodium 136 138 Potassium 3.7 4.2 Chloride 102 106 Carbon Dioxide 25 24 BUN 21 H 22 H Creatinine 1.03 0.82 Calcium 9.8 D 8.6 D Liver Function 08/30/23 Range/Units 04:51 Total Bilirubin 0.6 (0.0-1.0) mg/dL AST 14 (5-37) U/L ALT 14 (0-40) U/L Alkaline Phosphatase 89 (39-117) U/L Albumin 3.2 L (3.5-5.0) g/dL Urine 08/29/23 Range/Units 18:43 Urine Color Dark Yellow Urine Appearance Clear Urine pH 5.5 (5.0-9.0) Ur Specific [place] >= 1.030 H (1.005-1.025) Urine Protein 300 (3+) H (Neg-Trace) mg/dL Urine Glucose (UA) >=1000 H (Negative) mg/dL Assessment and Plan (1) Acute low back pain: Qualifiers: Back pain laterality: bilateral Sciatica presence: unspecified whether sciatica present Qualified Code(s): M54.50 - Low back pain, unspecified Status: Acute This appears to be related to 2 paraspinal abscess from a septic L4-5 facet joint. Recommendations: Infectious disease consult for into buttock recommendations. Continue vancomycin in the interim. Neurosurgical consultation. Pain control with judicious use of narcotics MRI of the lumbar spine was reviewed (2) Epidural abscess, L2-L5: Status: Acute (3) MAURI (obstructive sleep apnea): Status: Acute (4) Asthma: Qualifiers: Asthma severity: mild Asthma persistence: intermittent Asthma complication type: unspecified Qualified Code(s): J45.20 - Mild intermittent asthma, uncomplicated Status: Acute (5) Type 2 diabetes mellitus: Qualifiers: Diabetes mellitus retirement insulin use: with retirement use Diabetes mellitus complication status: without complication Qualified Code(s): E11.9 - Type 2 diabetes mellitus without complications; 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 Admit to hospitalist service. Continue empiric IV antibiotic therapy with Zosyn and vancomycin. According to ED provider case has been discussed with IR recommending antibiotics. Pain control with Dilaudid. Type 2 diabetes mellitus. Continue Trulicity, Jardiance. Glargine and insulin sliding scale. Essential hypertension. Continue chlorthalidone, losartan, spironolactone and hydralazine. Hyperlipidemia. Continue atorvastatin. Diabetic neuropathy. Continue gabapentin. BPH. Continue tamsulosin. Asthma, mild intermittent. No symptoms at this time. Albuterol as needed. MAURI. Continue CPAP Recent s/p less for toe amputation (surgical area looks clean without erythema or discharges). DVT prophylaxis-heparin subcut Code status-full Patient will need hospitalization for at least 2 midnights for IV antibiotic therapy and possible evaluation by IR. Procedures Date of Service Date of Service: 08/30/23
--- NOTE | 2023-08-30 12:32 | MHC.CM.PN ---
PT REPORTS HE LIVES WITH HIS SON AND IS INDEPENDENT WITH CARE HE IS CURRENTLY ACTIVE WITH [facility] FOR WOUND CARE DUE TO A GREAT TOE AMPUTATION DURING RECENT ADMISSION PT USES A CPAP FOR DME HE HAS A HCP ON FILE PCP: [facility] IMM DELIVERED DCP: [facility] PT TO ARRANGE TRANSPORT
[2023-08-30 13:22] LABS: Glucose, Whole Blood 166 mg/dL (60-115)
[2023-08-30 13:49] VITALS: BP 145/70; PULSE 61; RESP 18; O2SAT 96
--- NOTE | 2023-08-30 14:44 | W.PM.IDCN ---
History of Present Illness Data of Consult Service Date: 08/30/23 Requesting physician: Yesica Neri Primary Care Provider: Milena Shoemaker MD [facility] Reason for consult: right back infection He presents with 10/10 back pain. He has no fever. He has had longstanding wounds for months at least from DM and had ray amputation left great toe on 08/16. He has MRI right septic facet joint with phlegmon and concern abscess L4-L5, 1.2 cm. 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 Tobacco Use Status: Current everyday Tobacco user Tobacco use type: Cigarette Cigarette Packs Per Day: 1 Cigarettes Per Day: 20.0 Smoked in Last 30 Days: Yes Second Hand Smoke Exposure: No Use of substances other than those prescribed or required for medical reasons: Yes Substance Use Type: Marijuana Substance Use Frequency: Occasionally Advance Directives: Yes Advance Directives on File: Yes Advance Directives Date on File: 08/30/23 service: No Meds Allergies Allergy/AdvReac Type Severity Reaction Status Date / Time naproxen [From NAPROSYN] AdvReac Severe STOMACH Verified 08/29/23 11:15 UPSET lisinopril [LISINOPRIL] AdvReac Mild COUGH Verified 08/29/23 11:15 SEAFOOD Allergy Unknown ANAPHYLAXIS Uncoded 08/15/23 09:17 Active Medications: Current Medications Acetaminophen (Acetaminophen 325 Mg Tablet) 975 mg PO Q6H PRN PRN Reason: Pain, Mild (Pain Scale 1-3) Albuterol Sulfate (Albuterol Sulfate 90 Mcg 8 Gm Inhaler) 2 puff INHALE Q4H PRN PRN Reason: Wheezing Atorvastatin Calcium (Atorvastatin Calcium 80 Mg Tablet) 80 mg PO BEDTIME [facility] Baclofen (Baclofen 10 Mg Tablet) 10 mg PO TID [facility] Last Admin: 08/30/23 08:41 Dose: 10 mg Carvedilol (Carvedilol 12.5 Mg Tablet) 12.5 mg PO [facility]ID[facility]; Protocol Last Admin: 08/30/23 08:42 Dose: 12.5 mg Dextrose (Dextrose 50 % 25 Gm/50 Ml Syringe) 25 gm IVPUSH Q15M PRN; Protocol PRN Reason: per Hypoglycemia Standing Ord. Empagliflozin (Empagliflozin 25 Mg Tablet) 25 mg PO DAILY [facility] Last Admin: 08/30/23 09:37 Dose: 25 mg Fluticasone Propionate (Fluticasone Propionate Nasal 16 Gm [place]) 1 spray NOSTRIL-B BID PRN PRN Reason: Allergy Symptoms Gabapentin (Gabapentin 400 Mg Capsule) 800 mg PO TID [facility] Last Admin: 08/30/23 08:40 Dose: 800 mg Glucose (Glucose Gel 15 Gm Gel..Gram.) 15 gm PO Q15M PRN; Protocol PRN Reason: per Hypoglycemia Standing Ord. Heparin Sodium (Porcine) (Heparin Sodium,Porcine 5,000 Unit/Ml Vial) 5,000 unit SUBCUT Q8H [facility] Last Admin: 08/30/23 08:43 Dose: 5,000 unit Hydralazine HCl (Hydralazine Hcl 50 Mg Tablet) 50 mg PO TID [facility]; Protocol Last Admin: 08/30/23 08:42 Dose: 50 mg Hydrochlorothiazide (Hydrochlorothiazide 50 Mg Tablet) 50 mg PO DAILY [facility] Last Admin: 08/30/23 09:37 Dose: 50 mg Hydromorphone HCl (Hydromorphone Hcl 1 Mg/Ml Syringe) 1 mg IVPUSH Q4H PRN; Protocol PRN Reason: Pain, Severe (Pain Scale 7-10) Last Admin: 08/30/23 08:38 Dose: 1 mg Piperacillin Sod/Tazobactam (Sod 4.5 gm/ Sodium Chloride) 100 mls @ 200 mls/hr IV Q6H [facility] Last Infusion: 08/30/23 09:37 Dose: Infused Vancomycin HCl 1,000 mg/ (Sodium Chloride) 270 mls @ 270 mls/hr IV Q12H [facility] Last Infusion: 08/30/23 12:49 Dose: Infused Insulin Glargine (Insulin Glargine,Hum.Rec.Anlog 100 Unit/Ml 10 Ml Vial) 30 unit SUBCUT BEDTIME [facility] Insulin Human Lispro (Insulin Lispro 100 Unit/Ml 3 Ml Vial) 0 unit SUBCUT QIDACHS [facility]; Protocol Last Admin: 08/30/23 13:41 Dose: 2 unit Loratadine (Loratadine 10 Mg Tablet) 10 mg PO DAILY [facility] Last Admin: 08/30/23 08:42 Dose: 10 mg Losartan Potassium (Losartan Potassium 50 Mg Tablet) 100 mg PO DAILY [facility]; Protocol Last Admin: 08/30/23 08:41 Dose: 100 mg Magnesium Oxide (Magnesium Oxide 400 Mg Tablet) 400 mg PO DAILY [facility] Last Admin: 08/30/23 08:41 Dose: 400 mg Nicotine (Nicotine 21 Mg Patch.Td24) 21 mg TRANSDERMA DAILY [facility] Last Admin: 08/30/23 08:43 Dose: 21 mg Ondansetron HCl (Ondansetron Hcl 4 Mg/2 Ml Vial) 4 mg IVPUSH Q6H PRN PRN Reason: Nausea and Vomiting Last Admin: 08/30/23 08:36 Dose: 4 mg Pharmacy Consult (Consult Rx Vancomycin Dosing) 1 each MISCELLANE DAILY PRN PRN Reason: Consult order Sodium Chloride (0.9 % Sodium Chloride Flush 3 Ml Syringe) 3 ml IVFLUSH QSHIFT [facility] Last Admin: 08/30/23 07:43 Dose: 3 ml Spironolactone (Spironolactone 25 Mg Tablet) 25 mg PO DAILY [facility]; Protocol Last Admin: 08/30/23 08:40 Dose: 25 mg Tamsulosin HCl (Tamsulosin Hcl 0.4 Mg Capsule) 0.4 mg PO DAILY [facility] Last Admin: 08/30/23 08:41 Dose: 0.4 mg Home Medications Medication Instructions Recorded Confirmed Last Taken Type albuterol sulfate 90 mcg/actuation 2 puff inhalation Q4H PRN Wheezing 08/15/23 08/29/23 08/29/23 History aerosol inhaler (Ventolin HFA) atorvastatin 80 mg tablet 80 mg PO BEDTIME 08/15/23 08/29/23 08/29/23 History baclofen 10 mg tablet 10 mg PO TID 08/15/23 08/29/23 08/29/23 History carvedilol 12.5 mg tablet 12.5 mg PO BIDWM 08/15/23 08/29/23 08/29/23 History cetirizine 10 mg tablet 10 mg PO DAILY 08/15/23 08/29/23 08/29/23 History chlorthalidone 50 mg tablet 50 mg PO QAM 08/15/23 08/29/23 08/29/23 History dulaglutide 4.5 mg/0.5 mL 4.5 mg subcut FR 08/15/23 08/29/23 08/26/23 History subcutaneous pen injector (Trulicity) empagliflozin 25 mg tablet 25 mg PO QAM 08/15/23 08/29/23 08/29/23 History (Jardiance) epinephrine 0.3 mg/0.3 mL 0.3 mg IM DIRECTED PRN Allergic 08/15/23 08/29/23 Unknown History injection, auto-injector Reaction fluticasone propionate 50 1 spray intranasal BID PRN Allergy 08/15/23 08/29/23 Unknown History mcg/actuation nasal Symptoms spray,suspension gabapentin 800 mg tablet 800 mg PO TID 08/15/23 08/29/23 08/29/23 History hydralazine 50 mg tablet 50 mg PO TID 08/15/23 08/29/23 08/29/23 History insulin aspart 0 unit subcut TIDAC 08/15/23 08/29/23 08/29/23 History (niacinamide)(U-100) 100 unit/mL(3 mL) subcutaneous pen (Fiasp FlexTouch U-100 Insulin) losartan 100 mg tablet 100 mg PO QAM 08/15/23 08/29/23 08/29/23 History magnesium oxide 400 mg (241.3 mg 400 mg PO QAM 08/15/23 08/29/23 08/29/23 History magnesium) tablet nicotine 21 mg/24 hr daily 1 patch transdermal DAILY 08/15/23 08/29/23 08/29/23 History transdermal patch oxycodone 5 mg tablet 5 mg PO Q6H PRN severe pain 08/15/23 08/29/23 08/14/23 History spironolactone 25 mg tablet 25 mg PO QAM 08/15/23 08/29/23 08/29/23 History tamsulosin 0.4 mg capsule 0.4 mg PO QAM 08/15/23 08/29/23 08/29/23 History insulin glargine 100 unit/mL (3 30 unit subcut BEDTIME 08/29/23 08/29/2308/27/24 History mL) subcutaneous pen (Basaglar KwikPen U-100 Insulin) Physical Exam Vital Signs: Vital Signs: Last Vital Signs Temp 97.6 F 08/29/23 23:44 Pulse 61 08/30/23 13:49 Resp 18 08/30/23 13:49 BP 145/70 H 08/30/23 13:49 Pulse Ox 96 08/30/23 13:49 O2 Del Method Room Air 08/30/23 13:49 BMI result Body Mass Index 23.9 Const: General: cooperative HEENT: Head: Yes normal to inspection Face and sinus: Yes normal facial exam Mouth: Normal oral and palatal mucosa present Teeth and gingiva: dentition normal Eyes: General: appearance normal, both eyes and all related structures Pupils: Equal, round and reactive pupils present Resp: Effort & Inspection: normal respiratory effort Cardio: Rate: regular rate Rhythm: regular rhythm GI: Palpation (GI): Soft to palpation and nontender Back/Spine/Pelvis: Other: pain right paraspinal area moves extremities. Skin: General skin exam: no rashes or lesions noted Neuro: General: moves all extremities Cranial nerves: Yes Equal, round and reactive pupils present Extrem: Other: neuropathy ,wrapped foot area, Psych: Appearance: grossly normal Results Labs 08/30/23 04:51 08/30/23 04:51 Labs: Short CBC 08/30/23 Range/Units 04:51 WBC 8.6 (4.8-10.8) X10*3/uL Hgb 11.0 L (14.0-18.0) g/dl Hct 34.3 L (42.0-52.0) % Plt Count 338 (160-400) X10*3/uL BMP 08/30/23 04:51 Sodium 138 Potassium 4.2 Chloride 106 Carbon Dioxide 24 BUN 22 H Creatinine 0.82 Calcium 8.6 D Liver Function 08/30/23 Range/Units 04:51 Total Bilirubin 0.6 (0.0-1.0) mg/dL AST 14 (5-37) U/L ALT 14 (0-40) U/L Alkaline Phosphatase 89 (39-117) U/L Albumin 3.2 L (3.5-5.0) g/dL Urine 08/29/23 Range/Units 18:43 Urine Color Dark Yellow Urine Appearance Clear Urine pH 5.5 (5.0-9.0) Ur Specific [place] >= 1.030 H (1.005-1.025) Urine Protein 300 (3+) H (Neg-Trace) mg/dL Urine Glucose (UA) >=1000 H (Negative) mg/dL Assessment and Plan (1) Acute osteomyelitis of lumbar spine: Status: Acute (2) Type 2 diabetes mellitus: Qualifiers: Diabetes mellitus mcc insulin use: with mcc use Diabetes mellitus complication status: without complication Qualified Code(s): E11.9 - Type 2 diabetes mellitus without complications; Z79.4 - alf (current) use of insulin Status: Acute Plan Lumbar spine infection. Likely due to staph or strep Probably related to mcc ulcers feet and bacteremia possible. Check echo. Vancomycin and Zosyn for now. Neurosurgery eval ?NS or IR drainage. Await blood cultures and culture abscess if drained.
--- NOTE | 2023-08-30 16:23 | P.DS_ITS ---
DS: Providers Provider Date of Service: 08/30/23 Date of admission: 08/29/23 20:01 Date of discharge: 08/30/23 Primary care physician: Milena Shoemaker MD Consults: 08/30/23 08:22 Consult to Neurology Routine Consulting Provider: [facility] Reason for consultation: back pain./L4-L5 septic arthritis /abcess Has provider been notified: No 08/30/23 08:23 Consult to Infectious Diseases Routine Consulting Provider: [facility] Infectious Disease Reason for consultation: back pain ,possible spinal abcess Has provider been notified: No Attending physician on discharge: Yesica Neri Discharging clinician: Yesica Neri DS: Diagnosis Discharge Diagnosis (1) Acute osteomyelitis of lumbar spine: Status: Acute (2) Type 2 diabetes mellitus: Status: Acute DS: Summary Hospital Course Hospital Course: 52 years old man with past medical history significant for type 2 diabetes mellitus on insulin, essential hypertension, asthma, diabetic polyneuropathy and recent hospitalization due to acute cellulitis and osteomyelitis of the left great toe status post amputation presents to the emergency department complaining of low mid back pain that has been getting worse over the last few days. The pains radiate to the right leg and increases with movement. He denied any associated symptoms such as fever, nausea, vomiting, dizziness or headache. He did not report any cardiopulmonary, gastrointestinal or genitourinary symptoms. He has been taking oxycodone for pain. In the ED, he was found to have normal vital signs. Blood workup showed leukocytosis, 14.0. There is anemia which is at baseline. There are no electrolyte imbalances and renal function is adequate. CRP is elevated. He underwent a lumbar spine MRI that showed findings suggestive of right-sided septic facet arthritis at L4/L5 with significant adjacent paraspinal miosis and phlegmon (1.2 cm abscess projecting posteriorly from the upper aspect of the right L4/L5 facet joint into the right paraspinal soft tissue. There are no epidural abscess. ED tx: Vancomycin 1 g IV, Dilaudid 4 mg (total) IV, Zosyn 4.5 g IV, Zofran 4 mg IV. Hospital course: Patient was admitted for severe back pain, radiation to both legs right is more than left, also has pain and difficulty with defecation: Patient is saying that his symptoms are getting worse from last 2-3 weeks, MRI lumbar spine shows 1.2cm paraspinal abscess,right-sided septic facet arthritis : Started on vancomycin and Zosyn, subsequently patient was seen by infectious disease and neurology: Recommended neurosurgical evaluation-above was discussed with neurosurgical team in [facility]-patient will be transferred to [place] for further management of paraspinal abscesses.mri disc sent with patient.mri with/without contrast is ordered-if it has not get done here until transfer -then can be done [facility]. Above management discussed with the patient detail length he understand in agreement with the plan, time spent 50 minute. Time Attestation Total time managing care of this patient today: 50 mintues. Discharge Coordination Time (in mins): 50 min Quality: Safe Use of Opioids Does Pt have an Active Cancer Diagnosis on the Problem List?: No Quality: Stroke Does the patient have a stroke diagnosis?: No Physical Exam Vital Signs: Vital Signs: Last Vital Signs Temp 97.6 F 08/29/23 23:44 Pulse 61 08/30/23 13:49 Resp 18 08/30/23 13:49 BP 145/70 H 08/30/23 13:49 Pulse Ox 96 08/30/23 13:49 O2 Del Method Room Air 08/30/23 13:49 BMI result Body Mass Index 23.9 Appearance: Alert.? Oriented X3.? cvs: rrr, [id number]. res: clear to auscultation ,no rhonchii or wheezing abd: no rebound or guarding ,nt, bs present. ext pulses present , no cyanosis. Left 1st toe amputation site: Stitches in place. No erythema. No swelling. spinal exam: has tenderness b/l lumbar spine area ,b/l pain radiation with little legs movement(right>left) ,unable to sit even( exam is limited) neuro: axo3 , nonfocal. DS: Data Data Completed and Pending Completed studies during hospitalization [Text1]: Procedures Detachment at Left 1st Toe, Complete, Open Approach (08/15/23) Labs on day of discharge: Laboratory Results - last 24 hr 08/29/23 08/29/23 08/29/23 11:47 18:43 19:25 WBC RBC Hgb Hct MCV MCH MCHC RDW Plt Count MPV Immature Gran % (Auto) Neut % (Auto) Lymph % (Auto) [place] % (Auto) Eos % (Auto) Baso % (Auto) Lymph # (Auto) [place] # (Auto) Eos # (Auto) Baso # (Auto) Abs Immat Gran (auto) Absolute Neuts (auto) Absolute Nucleated RBC Nucleated RBC % (auto) ESR 90 H Sodium Potassium Chloride Carbon Dioxide Anion Gap BUN Creatinine Estim Creat Clear Calc Estimated GFR POC Glucose Random Glucose Lactic Acid 0.8 Calcium Total Bilirubin AST ALT Alkaline Phosphatase C-Reactive Protein 1.36 H Total Protein Albumin Urine Color Dark Yellow Urine Appearance Clear Urine pH 5.5 Ur Specific Blevins >= 1.030 H Urine Protein 300 (3+) H Urine Glucose (UA) >=1000 H Urine Ketones Trace Urine Blood Negative Urine Nitrite Negative Ur Leukocyte Esterase Negative Urine RBC 0-2 Urine WBC 0-5 Ur Squamous Epith Cells 3-5 Urine Bacteria None Seen Hyaline Casts 3-5 08/29/23 08/30/23 08/30/23 23:43 04:51 07:15 WBC 8.6 RBC 3.98 L Hgb 11.0 L Hct 34.3 L MCV 86.2 MCH 27.6 MCHC 32.1 RDW 13.4 Plt Count 338 MPV 9.0 L Immature Gran % (Auto) 0.7 H Neut % (Auto) 53.7 Lymph % (Auto) 27.4 [place] % (Auto) 11.0 Eos % (Auto) 6.0 H Baso % (Auto) 1.2 Lymph # (Auto) 2.4 [place] # (Auto) 1.0 Eos # (Auto) 0.5 H Baso # (Auto) 0.1 Abs Immat Gran (auto) 0.06 H Absolute Neuts (auto) 4.6 Absolute Nucleated RBC 0.000 Nucleated RBC % (auto) 0.0 ESR Sodium 138 Potassium 4.2 Chloride 106 Carbon Dioxide 24 Anion Gap 12 BUN 22 H Creatinine 0.82 Estim Creat Clear Calc 104.2 Estimated GFR > 60 POC Glucose 231 H 173 H Random Glucose 171 H Lactic Acid Calcium 8.6 D Total Bilirubin 0.6 AST 14 ALT 14 Alkaline Phosphatase 89 C-Reactive Protein Total Protein 7.1 Albumin 3.2 L Urine Color Urine Appearance Urine pH Ur Specific Blevins Urine Protein Urine Glucose (UA) Urine Ketones Urine Blood Urine Nitrite Ur Leukocyte Esterase Urine RBC Urine WBC Ur Squamous Epith Cells Urine Bacteria Hyaline Casts 08/30/23 13:18 WBC RBC Hgb Hct MCV MCH MCHC RDW Plt Count MPV Immature Gran % (Auto) Neut % (Auto) Lymph % (Auto) [place] % (Auto) Eos % (Auto) Baso % (Auto) Lymph # (Auto) [place] # (Auto) Eos # (Auto) Baso # (Auto) Abs Immat Gran (auto) Absolute Neuts (auto) Absolute Nucleated RBC Nucleated RBC % (auto) ESR Sodium Potassium Chloride Carbon Dioxide Anion Gap BUN Creatinine Estim Creat Clear Calc Estimated GFR POC Glucose 166 H Random Glucose Lactic Acid Calcium Total Bilirubin AST ALT Alkaline Phosphatase C-Reactive Protein Total Protein Albumin Urine Color Urine Appearance Urine pH Ur Specific Blevins Urine Protein Urine Glucose (UA) Urine Ketones Urine Blood Urine Nitrite Ur Leukocyte Esterase Urine RBC Urine WBC Ur Squamous Epith Cells Urine Bacteria Hyaline Casts Imaging Chest x-ray: Radiologist's impression: ITS Impressions Lumbar Spine MRI 08/29/23 17:45 IMPRESSION: - Imaging findings are most suggestive of right-sided septic facet arthritis at L4-L5 with significant adjacent paraspinal myositis and phlegmon as well as a probable 1.2 cm abscess projecting posteriorly from the upper aspect of the right L4-L5 facet joint into the right paraspinal soft tissues. Phlegmon partially effaces the right L4-L5 neural foramen. No epidural abscess. - Nonspecific enlarged retroperitoneal lymph nodes. Discharge Plan Discharge Anticipated Discharge Date/Time: 08/30/23 16:06 Patient Disposition: Xfer Acute Care Hospital Discharge Diagnosis: acute back pain,paraspinal abcesses Referrals: Milena Shoemaker MD [Primary Care Provider] - 1 Week Discharge Medications: New piperacillin-tazobactam 4.5 gram Recon Soln 4.5 g IV Q6H Qty: 1 0RF vancomycin in 0.9 % sodium chl 1 gram/250 mL solution 1 g IV Q12H Continued atorvastatin 80 mg tablet 80 mg PO BEDTIME carvedilol 12.5 mg tablet 12.5 mg PO BIDWM cetirizine 10 mg Tablet 10 mg PO DAILY chlorthalidone 50 mg tablet 50 mg PO QAM spironolactone 25 mg tablet 25 mg PO QAM magnesium oxide 400 mg (241.3 mg magnesium) tablet 400 mg PO QAM tamsulosin 0.4 mg capsule 0.4 mg PO QAM gabapentin 800 mg tablet 800 mg PO TID baclofen 10 mg tablet 10 mg PO TID nicotine 21 mg/24 hr Patch 24 Hour 1 patch TRANSDERMAL DAILY hydralazine 50 mg tablet 50 mg PO TID epinephrine 0.3 mg/0.3 mL auto-injector 0.3 mg IM DIRECTED PRN (Reason: Allergic Reaction) albuterol sulfate [Ventolin HFA] 90 mcg/actuation HFA aerosol inhaler 2 puff inhalation Q4H PRN (Reason: Wheezing) losartan 100 mg tablet 100 mg PO QAM fluticasone propionate 50 mcg/actuation spray,suspension 1 spray intranasal BID PRN (Reason: Allergy Symptoms) oxycodone 5 mg tablet 5 mg PO Q6H PRN (Reason: severe pain) Hold Instructions: hold while taking higher dose of oxycodone Jardiance 25 mg tablet 25 mg PO QAM Fiasp FlexTouch U-100 Insulin 100 unit/mL (3 mL) insulin pen 0 unit subcut TIDAC Hold Instructions: follow blood sugars for now Protocol: Insulin Correction Scale Less than or equal to 110 ---- Give (units): 0 111 to 150 Give (units): 0 151 to 200 Give (units): 2 201 to 250 Give (units): 4 251 to 300 Give (units): 6 301 to 350 Give (units): 8 Greater than 350 Give (units): 10 Call MD if Blood Glucose > : 350 Trulicity 4.5 mg/0.5 mL pen injector 4.5 mg subcut FR insulin glargine [Basaglar KwikPen U-100 Insulin] 100 unit/mL (3 mL) insulin pen 30 unit subcut BEDTIME Discharge Orders: Discharge Order (Routine); Ordered 08/30/23 Ordered By: Yesica Neri Diet: Advance to usual diet Activity on Discharge: As tolerated Stand Alone Forms: Patient Portal Discharge page Care Plan Goals: Patient was admitted for severe back pain, radiation to both legs right is more than left, also has pain and difficulty with defecation: Patient is saying that his symptoms are getting worse from last 2-3 weeks, MRI lumbar spine shows 1.2cm paraspinal abscess,right-sided septic facet arthritis : Started on vancomycin and Zosyn, subsequently patient was seen by infectious disease and neurology: Recommended neurosurgical evaluation-above was discussed with neurosurgical team in [facility]-patient will be transferred to [place] for further management of paraspinal abscesses.mri disc sent with patient. Above management discussed with the patient detail length he understand in agreement with the plan, time spent 50 minute. Health Concerns: As above. Plan of Treatment: As above. Assessment: As above.
[2023-08-30 16:39] VITALS: BP 136/63; PULSE 64; RESP 20; TEMP 36.8; O2SAT 97
[2023-08-30 16:43] LABS: Glucose, Whole Blood 167 mg/dL (60-115)
--- NOTE | 2023-08-30 16:58 | PC.NURSE ---
Report given to LUIS Atwood at [facility] floor C4, Orthopedic floor. Pt requesting pain meds prior to ride. Medicated per MAR
[2023-08-30 18:33] VITALS: BP 116/82; PULSE 70; RESP 16; TEMP 37.1; O2SAT 95
== END 2023-08-30 18:35 | disposition short-term general hospital (02) | DRG 551 ==
LOC: HO.ED 16:23 → HO.EDOVER 20:08
PROVIDERS: Emergency Medicine; Admitting Provider Internal Medicine; Emergency Provider Internal Medicine; PCP Family Medicine; Visit Provider Internal Medicine
DX: M46.56 Other infective spondylopathies, lumbar region (principal); G06.1 Intraspinal abscess and granuloma; G47.33 Obstructive sleep apnea (adult) (pediatric); F17.210 Nicotine dependence, cigarettes, uncomplicated; E11.42 Type 2 diabetes mellitus with diabetic polyneuropathy; J45.20 Mild intermittent asthma, uncomplicated; I10 Essential (primary) hypertension; E78.5 Hyperlipidemia, unspecified; N40.0 Benign prostatic hyperplasia without lower urinary tract symptoms; Z71.6 Tobacco abuse counseling; Z79.4 Long term (current) use of insulin; Z79.84 Long term (current) use of oral hypoglycemic drugs; Z79.85 Long-term (current) use of injectable non-insulin antidiabetic drugs; Z79.899 Other long term (current) drug therapy
CPT/HCPCS: 36415; 72148; 80048; 80053; 81001; 82947; 83605; 83735; 85025; 85652; 86140; 87040; 94660; 99285; J1170; J1644; J2405; J2543; J3370

== ENCOUNTER → 2023-08-29 20:01 | Outpatient (BNV) | payer MEDICARE, MEDICAID, SELFPAY | PROVIDERS: Admitting Provider Internal Medicine; Emergency Provider Internal Medicine; PCP Family Medicine; Visit Provider Psychiatry & Neurology Neurology | DX: G06.1 Intraspinal abscess and granuloma (principal); G47.33 Obstructive sleep apnea (adult) (pediatric); J45.20 Mild intermittent asthma, uncomplicated; E11.9 Type 2 diabetes mellitus without complications; Z79.4 Long term (current) use of insulin | CPT/HCPCS: 99222 ==

== ENCOUNTER → 2023-08-29 20:01 | Outpatient (BNV) | payer MEDICARE, MEDICAID, SELFPAY | PROVIDERS: Admitting Provider Internal Medicine; Emergency Provider Internal Medicine; PCP Family Medicine; Visit Provider Internal Medicine | DX: M46.26 Osteomyelitis of vertebra, lumbar region (principal); E11.9 Type 2 diabetes mellitus without complications; Z79.4 Long term (current) use of insulin | CPT/HCPCS: 99222 ==

== ENCOUNTER → 2023-08-29 20:01 | Outpatient (BNV) | payer MEDICARE, MEDICAID, SELFPAY | PROVIDERS: Admitting Provider Internal Medicine; Emergency Provider Internal Medicine; PCP Family Medicine; Visit Provider Internal Medicine | DX: G06.1 Intraspinal abscess and granuloma (principal); M54.50 Low back pain, unspecified; G47.33 Obstructive sleep apnea (adult) (pediatric); J45.20 Mild intermittent asthma, uncomplicated; E11.9 Type 2 diabetes mellitus without complications; Z79.4 Long term (current) use of insulin; M46.26 Osteomyelitis of vertebra, lumbar region | CPT/HCPCS: 99223; 99239 ==

== ENCOUNTER 2023-09-21 11:11 | Outpatient (AMB) | payer MEDICARE, MEDICAID, SELFPAY ==
--- NOTE | 2023-09-21 11:05 | MHC.OFFVIS ---
Vital Signs 09/21/23 11:12 Height 5 ft 8 in Weight 254 lb BMI 38.6 BP 140/85 H Blood Pressure Location Rt brachial Position Sitting Pulse 83 Pulse Source Pulse Oximeter Temp 98.7 F Temp Source Oral Pulse Oximetry (%) 96 Intake Visit Reasons: right back infection ok per Allergies naproxen [From NAPROSYN] Adverse Reaction (Severe, Verified 09/21/23 11:05) STOMACH UPSET lisinopril [LISINOPRIL] Adverse Reaction (Mild, Verified 09/21/23 11:05) COUGH SEAFOOD Allergy (Unknown, Uncoded 08/15/23 09:17) ANAPHYLAXIS HPI HPI right back infection ok per : Details: I had seen him on 08/29. He had right facet L4/L5 plegmon with 1.2 cm abscess right paraspinal area. He was transferred [facility] I talked to Marielos Zimmerman of ID and nothing to do per Neurosurgery. 08/31 IR phlegmon culture negative and no bacteremia. He developed drug rash while on Vancomycin and Cefepime but controllable with Benadryl. He has no complaints today except some discomfort back but less than before. 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 Tobacco Use Status: Current everyday Tobacco user Tobacco use type: Cigarette Cigarette Packs Per Day: 1 Cigarettes Per Day: 20.0 Second Hand Smoke Exposure: No Substance Use Type: Marijuana Advance Directives Date on File: 08/30/23 service: No Review of Systems Const All systems reviewed & are unremarkable except as noted in HPI and below Physical Exam Vital Signs: Last Vital Signs Temp 98.7 F 09/21/23 11:12 Pulse 83 09/21/23 11:12 BP 140/85 H 09/21/23 11:12 Pulse Ox 96 09/21/23 11:12 BMI result Body Mass Index 38.6 Const Other: General: cooperative Orientation/consciousness: patient oriented x3 HEENT Head: Yes normal to inspection Mouth: Normal oral and palatal mucosa present Eyes General: appearance normal, both eyes and all related structures Pupils: Equal, round and reactive pupils present Resp Effort & Inspection: normal respiratory effort Cardio Rate: regular rate Rhythm: regular rhythm GI Palpation (GI): Soft to palpation and nontender General: Yes no CVA tenderness Back/Spine/Pelvis Back: no CVA tenderness Skin General skin exam: no rashes or lesions noted Neuro General: patient oriented x3 Cranial nerves: Yes CN's II-XII intact bilaterally and Yes Equal, round and reactive pupils present Extrem General: Yes normal to inspection Psych Appearance: grossly normal Assessment & Plan Assessment & Plan (1) Acute osteomyelitis of lumbar spine: Comment: He has been doing better. He remains on Vancomycin and Cefepime. Finish antibiotics on 10/09 unless rash redevelops or other concerns. 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
[2023-09-21 11:12] VITALS: BP 140/85; PULSE 83; TEMP 37.1; O2SAT 96; BMI 38.6
== END 2023-09-21 12:01 | disposition home or self-care (01) ==
PROVIDERS: PCP Family Medicine; Visit Provider Internal Medicine
DX: M46.26 Osteomyelitis of vertebra, lumbar region (principal); E11.9 Type 2 diabetes mellitus without complications; Z79.4 Long term (current) use of insulin
CPT/HCPCS: 99214

== ENCOUNTER → 2023-09-21 11:11 | Outpatient (BNVA) | payer MEDICARE, MEDICAID, SELFPAY | PROVIDERS: PCP Family Medicine; Visit Provider Internal Medicine | DX: M46.26 Osteomyelitis of vertebra, lumbar region (principal); E11.9 Type 2 diabetes mellitus without complications; Z79.4 Long term (current) use of insulin | CPT/HCPCS: 99212 ==

== ENCOUNTER 2023-09-23 10:34 | Outpatient (REF) | payer MEDICARE, MEDICAID, SELFPAY ==
[2023-09-23 10:42] LABS: MANUAL DIFF FLAG NO
[2023-09-23 10:54] LABS: Basophils Absolute Auto 0.1 X10*3/uL (0.0-0.2); Basophils Percent Auto 1.1 % (0-2); Eosinophils Absolute Auto 0.7 X10*3/uL (0.0-0.4); Eosinophils Percent Auto 5.9 % (0-4); Hematocrit 34.1 % (42.0-52.0); Imm Gran Abs Auto 0.06 X10*3/uL (0.00-0.03); Imm Gran Pct Auto 0.5 % (0.0-0.4); Lymphocytes Absolute Auto 2.5 X10*3/uL (1.2-4.9); Lymphocytes Percent Auto 21.5 % (20-40); Mean Corpuscular HGB Conc 32.3 g/dl (31.0-36.0); Mean Corpuscular Hemoglobin 27.8 pg (27.0-33.0); Mean Corpuscular Volume 86.3 fL (80.0-98.0); Monocytes Percent Auto 8.8 % (2-11); Neutrophils Absolute Auto 7.3 x10*3/uL (2.0-8.3); Neutrophils Percent Auto 62.2 % (45-73); Platelet Count 263 X10*3/uL (160-400); Red Blood Count 3.95 X10*6/uL (4.60-5.80); Red Cell Distribution Width 13.5 % (11.0-16.0); White Blood Count 11.8 X10*3/uL (4.8-10.8)
[2023-09-23 11:15] LABS: Vancomycin Trough < 2.0 mcg/mL (10.0-20.0)
[2023-09-23 11:46] LABS: Erythrocyte Sedimentation Rate 47 MM/HR (0-15)
[2023-09-23 12:32] LABS: Alanine Aminotransferase 13 U/L (0-40); Albumin Level 3.6 g/dL (3.5-5.0); Alkaline Phosphatase 137 U/L (39-117); Anion Gap 14 (12-20); Aspartate Amino Transferase 13 U/L (5-37); Bilirubin Total 0.4 mg/dL (0.0-1.0); Blood Urea Nitrogen 24 mg/dL (9-16); C Reactive Protein 0.76 mg/dL (< or = 0.50); Calcium 8.8 mg/dL (8.4-10.2); Carbon Dioxide 26 mmol/L (22-29); Chloride 103 mmol/L (96-108); Estimated Glomerular Filt Rate > 60; Glucose Random 240 mg/dL (60-115); Potassium 4.1 mmol/L (3.3-5.1); Sodium 139 mmol/L (135-145); Total Protein 7.4 g/dL (6.5-8.0)
== END 2023-09-23 10:35 | disposition home or self-care (01) ==
LOC: HO.HVNA 10:34
PROVIDERS: Visit Provider Internal Medicine
DX: M46.26 Osteomyelitis of vertebra, lumbar region (principal); Z47.81 Encounter for orthopedic aftercare following surgical amputation
CPT/HCPCS: 36415; 80053; 80202; 85025; 85652; 86140

== ENCOUNTER 2023-09-30 13:24 | Outpatient (REF) | payer MEDICARE, MEDICAID, SELFPAY ==
[2023-09-30 13:26] LABS: MANUAL DIFF FLAG NO
[2023-09-30 13:33] LABS: Basophils Absolute Auto 0.1 X10*3/uL (0.0-0.2); Basophils Percent Auto 0.8 % (0-2); Eosinophils Absolute Auto 0.6 X10*3/uL (0.0-0.4); Eosinophils Percent Auto 5.1 % (0-4); Hematocrit 36.4 % (42.0-52.0); Hemoglobin 11.7 g/dl (14.0-18.0); Imm Gran Abs Auto 0.08 X10*3/uL (0.00-0.03); Imm Gran Pct Auto 0.7 % (0.0-0.4); Lymphocytes Absolute Auto 2.1 X10*3/uL (1.2-4.9); Lymphocytes Percent Auto 18.6 % (20-40); Mean Corpuscular HGB Conc 32.1 g/dl (31.0-36.0); Mean Corpuscular Hemoglobin 27.8 pg (27.0-33.0); Mean Corpuscular Volume 86.5 fL (80.0-98.0); Mean Platelet Volume 9.7 fL (9.4-12.4); Monocytes Absolute Auto 0.7 X10*3/uL (0.1-1.2); Monocytes Percent Auto 6.1 % (2-11); Neutrophils Absolute Auto 7.8 x10*3/uL (2.0-8.3); Neutrophils Percent Auto 68.7 % (45-73); Platelet Count 371 X10*3/uL (160-400); Red Blood Count 4.21 X10*6/uL (4.60-5.80); Red Cell Distribution Width 13.7 % (11.0-16.0); White Blood Count 11.4 X10*3/uL (4.8-10.8)
[2023-09-30 14:37] LABS: Erythrocyte Sedimentation Rate 67 MM/HR (0-15)
[2023-09-30 16:21] LABS: Alanine Aminotransferase 14 U/L (0-40); Albumin Level 3.9 g/dL (3.5-5.0); Alkaline Phosphatase 151 U/L (39-117); Anion Gap 13 (12-20); Aspartate Amino Transferase 14 U/L (5-37); Bilirubin Total 0.5 mg/dL (0.0-1.0); Blood Urea Nitrogen 27 mg/dL (9-16); C Reactive Protein 1.05 mg/dL (< or = 0.50); Calcium 9.4 mg/dL (8.4-10.2); Carbon Dioxide 27 mmol/L (22-29); Chloride 103 mmol/L (96-108); Estimated Glomerular Filt Rate > 60; Glucose Random 243 mg/dL (60-115); Potassium 3.9 mmol/L (3.3-5.1); Sodium 139 mmol/L (135-145)
== END 2023-09-30 13:25 | disposition home or self-care (01) ==
LOC: HO.HVNA 13:24
PROVIDERS: Visit Provider Internal Medicine
DX: Z47.81 Encounter for orthopedic aftercare following surgical amputation (principal)
CPT/HCPCS: 36415; 80053; 85025; 85652; 86140

== ENCOUNTER 2023-10-04 09:30 | Outpatient (AMB) | payer MEDICARE, MEDICAID, SELFPAY ==
--- NOTE | 2023-10-04 09:40 | MHC.OFFVIS ---
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 Has a great toe amp on the left foot that he states is almost healed and he also has a wound on his right foot . Patient is diabetic. Toe was amputated due to an accident. Right foot wound he believes is due to shifting weight. 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 This actually began on 08/17/2023 where he underwent left great toe amp by Dr. Oh. He appears to be doing relatively well from that. He subsequently developed an L4-5 paraspinal abscess. He was initially treated conservatively and at some point ended up at [facility]. Was treated for that he was subsequently discharged. He has some swollen lower extremities. He now presents to us for evaluation. 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 Tobacco Use Status: Current everyday Tobacco user Tobacco use type: Cigarette Cigarette Packs Per Day: 1 Cigarettes Per Day: 20.0 Second Hand Smoke Exposure: No Substance Use Type: Marijuana Advance Directives Date on File: 08/30/23 service: No Review of Systems Const All systems reviewed & are unremarkable except as noted in HPI and below Reports no additional complaints ENT Reports Normal hearing present Card Denies chest pain, Denies chest pain at rest, Denies chest pain with activity and Denies pedal edema Resp Denies cough GI Denies abdominal pain Musc Denies abnormal gait, Denies muscle cramps and Denies radiating pain into limb Skin/Breast Denies skin ulcer and Denies wounds Neuro Reports Normal hearing present and Denies abnormal gait Psych Reports no additional complaints Physical Exam Const General: cooperative, healthy appearing and comfortable Orientation/consciousness: oriented to person, oriented to place and oriented to time HEENT Head: Yes normal to inspection Neck Neck: Yes normal visual inspection Carotids: no bruits Chest Chest palpation & inspection: normal inspection of the chest Resp Effort & Inspection: normal respiratory effort and able to speak in complete sentences Auscultation: clear to auscultation bilaterally, no crackles, no rales, no rhonchi and no wheezes Cardio Other: Bilateral palpable dorsalis pedis pulse Rate: regular rate Rhythm: regular rhythm Heart sounds: S1 normal heart sound present and S2 normal heart sound present Bruits: no carotid bruits Peripheral pulses: Peripheral pulses 2+ throughout GI Inspection: Yes normal to inspection Skin Other: Left great toe amputation site well-healed. Sutures removed Wounds: no wounds Hair: normal Neuro General: oriented to person, oriented to place and oriented to time Cranial nerves: Yes CN's II-XII intact bilaterally and Yes Normal hearing present Cognition (Neuro): normal cognition Motor exam (neuro): 5/5 motor strength present throughout Extrem Other: venous exam: +1 edema General: No clubbing, No cyanosis and Yes edema Psych Appearance: grossly normal Mental Status: mental status grossly normal Speech and movement: Normal speech and movement present Assessment & Plan Assessment & Plan (1) Leg pain: Code(s): M79.606 - Pain in leg, unspecified Category: Medical Qualifiers: Laterality: bilateral Qualified Code(s): M79.604 - Pain in right leg; M79.605 - Pain in left leg Plan: In short unclear etiology of lower extremity pain. It does not appear to be arterial as the patient does have palpable dorsalis pedis pulses. More importantly the concern of this paraspinal abscess which is being treated. I would like all these issues to resolve before even consider venous intervention. At the current time we did discuss conservative measures including compression elevation and exercise. He does have persistent pain and will refer to pain management for further workup and evaluation as he was frustrated with his care at [facility]. Thank you for allowing us to assist in his care. If there are any questions or concerns please do not hesitate to contact us. Orders: Referrals Pain Management Referral M54.9 - Dorsalgia, unspecified
== END 2023-10-04 10:14 | disposition home or self-care (01) ==
PROVIDERS: PCP Family Medicine; Visit Provider Surgery Vascular Surgery
DX: M79.604 Pain in right leg (principal); M79.605 Pain in left leg
CPT/HCPCS: 99203

== ENCOUNTER → 2023-10-04 09:30 | Outpatient (BNVA) | payer MEDICARE, MEDICAID, SELFPAY | PROVIDERS: PCP Family Medicine; Visit Provider Surgery Vascular Surgery | DX: M79.604 Pain in right leg (principal); M79.605 Pain in left leg | CPT/HCPCS: 99202 ==

== ENCOUNTER 2023-10-05 08:20 | Outpatient (REF) | payer MEDICARE, MEDICAID, SELFPAY ==
[2023-10-05 08:24] LABS: MANUAL DIFF FLAG NO
[2023-10-05 08:37] LABS: Basophils Absolute Auto 0.1 X10*3/uL (0.0-0.2); Eosinophils Absolute Auto 0.5 X10*3/uL (0.0-0.4); Eosinophils Percent Auto 5.2 % (0-4); Hematocrit 37.1 % (42.0-52.0); Hemoglobin 11.9 g/dl (14.0-18.0); Imm Gran Abs Auto 0.06 X10*3/uL (0.00-0.03); Imm Gran Pct Auto 0.7 % (0.0-0.4); Lymphocytes Absolute Auto 1.5 X10*3/uL (1.2-4.9); Lymphocytes Percent Auto 16.8 % (20-40); Mean Corpuscular HGB Conc 32.1 g/dl (31.0-36.0); Mean Corpuscular Hemoglobin 27.5 pg (27.0-33.0); Mean Corpuscular Volume 85.9 fL (80.0-98.0); Mean Platelet Volume 9.3 fL (9.4-12.4); Monocytes Absolute Auto 0.7 X10*3/uL (0.1-1.2); Monocytes Percent Auto 8.1 % (2-11); Neutrophils Absolute Auto 6.2 x10*3/uL (2.0-8.3); Neutrophils Percent Auto 68.2 % (45-73); Platelet Count 322 X10*3/uL (160-400); Red Blood Count 4.32 X10*6/uL (4.60-5.80); Red Cell Distribution Width 13.9 % (11.0-16.0)
[2023-10-05 09:14] LABS: Vancomycin Trough 21.1 mcg/mL (10.0-20.0)
[2023-10-05 09:30] LABS: Erythrocyte Sedimentation Rate 63 MM/HR (0-15)
[2023-10-05 09:37] LABS: Anion Gap 11 (12-20); Blood Urea Nitrogen 22 mg/dL (9-16); Calcium 9.3 mg/dL (8.4-10.2); Carbon Dioxide 27 mmol/L (22-29); Chloride 101 mmol/L (96-108); Estimated Glomerular Filt Rate 58; Potassium 4.3 mmol/L (3.3-5.1); Sodium 135 mmol/L (135-145)
[2023-10-05 09:38] LABS: Alanine Aminotransferase 13 U/L (0-40); Albumin Level 3.8 g/dL (3.5-5.0); Alkaline Phosphatase 145 U/L (39-117); Aspartate Amino Transferase 13 U/L (5-37); Bilirubin Total 0.6 mg/dL (0.0-1.0); C Reactive Protein 0.86 mg/dL (< or = 0.50); Total Protein 7.8 g/dL (6.5-8.0)
[2023-10-05 09:51] LABS: Glucose Random 445 mg/dL (60-115)
== END 2023-10-05 08:21 | disposition home or self-care (01) ==
LOC: HO.HVNA 08:20
PROVIDERS: Visit Provider Internal Medicine
DX: B99.9 Unspecified infectious disease (principal)
CPT/HCPCS: 36415; 80053; 80202; 85025; 85652; 86140

== ENCOUNTER 2023-10-12 11:12 | Outpatient (AMB) | payer MEDICARE, MEDICAID, SELFPAY ==
--- NOTE | 2023-10-12 11:13 | A.OFFVIS_ITS ---
Vital Signs 3 10/12/23 11:30 Height 5 ft 8 in Weight 276 lb BMI 42.0 Pulse 88 Pulse Source Pulse Oximeter Pulse Oximetry (%) 98 Intake Visit Reasons: Follow up 3 week antibiotics Allergies naproxen [From NAPROSYN] Adverse Reaction (Severe, Verified 10/12/23 11:31) STOMACH UPSET lisinopril [LISINOPRIL] Adverse Reaction (Mild, Verified 10/12/23 11:31) COUGH SEAFOOD Allergy (Unknown, Uncoded 08/15/23 09:17) ANAPHYLAXIS HPI HPI Follow up 3 week antibiotics: Details: He has back discomfort,but less discomfort and feels like chronic arthritic pain. He has no fever or chills. He started Vancomycin and Cefepime on 08/28 and was to finish 10/09,but missed four doses due to medicine left by UPS at another doorstep. However he did get that medicine and is finishing last dose October 14. He has no rash. His left foot infection has cleared as well. He has appointment tomorrow with Pain Clinic here at [facility] for chronic back pain. He is working on maintaining blood sugar control as well. 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 Tobacco Use Status: Current everyday Tobacco user Tobacco use type: Cigarette Cigarette Packs Per Day: 1 Cigarettes Per Day: 20.0 Second Hand Smoke Exposure: No Substance Use Type: Marijuana Advance Directives Date on File: 08/30/23 service: No Review of Systems Const All systems reviewed & are unremarkable except as noted in HPI and below Physical Exam Vital Signs: Last Vital Signs Pulse 88 10/12/23 11:30 Pulse Ox 98 10/12/23 11:30 BMI result Body Mass Index 42.0 Const Other: General: cooperative Orientation/consciousness: patient oriented x3 HEENT Head: Yes normal to inspection Mouth: Normal oral and palatal mucosa present Eyes General: appearance normal, both eyes and all related structures Pupils: Equal, round and reactive pupils present Resp Effort & Inspection: normal respiratory effort Cardio Rate: regular rate Rhythm: regular rhythm GI Palpation (GI): Soft to palpation and nontender General: Yes no CVA tenderness Back/Spine/Pelvis Back: no CVA tenderness Skin General skin exam: no rashes or lesions noted Neuro Other: sciatic area pain raising right leg and internal rotation General: patient oriented x3 Cranial nerves: Yes CN's II-XII intact bilaterally and Yes Equal, round and reactive pupils present Extrem Other: foot improved Psych Appearance: grossly normal Assessment & Plan Assessment & Plan (1) Acute osteomyelitis of lumbar spine: Comment: He is finishing six weeks antibiotics this weekend for LS spine OM He has had left foot infection much better as well. He has no specific organism and although no rash is glad to stop taking antibiotics. I did mention taking oral medication such as Doxycycline for a month after but he is feeling well and is concerned about rash so hold off for now and patient will get back to us if concerns. . Code(s): M46.26 - Osteomyelitis of vertebra, lumbar region Category: Medical Plan: See Pain Clinic tomorrow. Finish IV antibiotics. Order to pull PICC line and stop IV antibiotics 10/15. 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 Diabetes mellitus complication status: without complication Qualified Code(s): E11.9 - Type 2 diabetes mellitus without complications; Z79.4 - penitentiary (current) use of insulin Plan: per above (3) Epidural abscess, L2-L5: Code(s): G06.1 - Intraspinal abscess and granuloma Category: Medical Plan: per above (4) Cellulitis of great toe, left: Code(s): L03.032 - Cellulitis of left toe Category: Medical Plan: per above Coding Level of Care Code Est Pt Level 4 (00242) Diagnoses Acute osteomyelitis of lumbar spine M46.26 Type 2 diabetes mellitus without complication, with long-term current use of insulin E11.9; Z79.4 Diabetes mellitus prison insulin use: with watermelon harvesting supervisor use Diabetes mellitus complication status: without complication Epidural abscess, L2-L5 G06.1 Cellulitis of great toe, left L03.032
[2023-10-12 11:30] VITALS: PULSE 88; O2SAT 98; BMI 42.0
== END 2023-10-12 11:52 | disposition home or self-care (01) ==
LOC: HO.HID 11:12
PROVIDERS: PCP Family Medicine; Visit Provider Internal Medicine
DX: M46.26 Osteomyelitis of vertebra, lumbar region (principal); E11.9 Type 2 diabetes mellitus without complications; Z79.4 Long term (current) use of insulin; G06.1 Intraspinal abscess and granuloma; L03.032 Cellulitis of left toe
CPT/HCPCS: 99214

== ENCOUNTER → 2023-10-12 11:12 | Outpatient (BNVA) | payer MEDICARE, MEDICAID, SELFPAY | PROVIDERS: PCP Family Medicine; Visit Provider Internal Medicine | DX: M46.26 Osteomyelitis of vertebra, lumbar region (principal); L03.032 Cellulitis of left toe; G06.1 Intraspinal abscess and granuloma; E11.9 Type 2 diabetes mellitus without complications; Z79.4 Long term (current) use of insulin | CPT/HCPCS: 99212 ==

== ENCOUNTER 2023-10-13 10:07 | Outpatient (AMB) | payer MEDICARE, MEDICAID, SELFPAY ==
--- NOTE | 2023-10-13 10:14 | MHC.OFFVIS ---
Vital Signs 10/13/23 10:26 10/13/23 10:27 10/13/23 11:13 Height 5 ft 8 in Weight 266 lb 4 oz BMI 40.5 BP 217/101 H 220/101 H 184/87 H Blood Pressure Location Rt brachial Rt brachial Rt brachial Position Sitting Sitting Sitting Pulse 78 80 Pulse Source Pulse Oximeter Pulse Oximeter Pulse Oximetry (%) 98 98 Oxygen Delivery Method Room Air Room Air Comment bp recheck bp recheck Intake Visit Reasons: Dorsalgia, unspecified Intake Note: Pain today 03/22 Ict Development Manager Required: No Accompanied by: Self / Same As Patient Allergies naproxen [From NAPROSYN] Adverse Reaction (Severe, Verified 10/13/23 10:28) STOMACH UPSET lisinopril [LISINOPRIL] Adverse Reaction (Mild, Verified 10/13/23 10:28) COUGH SEAFOOD Allergy (Unknown, Uncoded 08/15/23 09:17) ANAPHYLAXIS HPI Comments Details: Gallo is a very pleasant 52 year old male who presents to the office today for evaluation and management of his chronic lower back pain Patient has history of diabetes, he had left great toe amputation on 08/17/2023 to treat left great toe ulcer/cellulitis/osteomyelitis. On discharge from the hospital he followed up with primary care doctor where he reported increasing lower back pain. He has had chronic lower back pain, was under the care of [facility] pain management. Underwent injections approximately 6 months ago without improvement of his symptoms. Patient reports the injections did not help his pain. He never returned to [facility] pain management for follow-up. Two months ago he developed sudden worsening of his back pain, he was evaluated in the ER and underwent an MRI LS which showed septic facet arthritis, osteomyelitis lumbar spine. He has been receiving antibiotics through a PICC line for last 6 weeks. Infectious Disease saw him this week, plan to complete 3 more days of IV antibiotics followed by one month of oral antibiotics. Patient endorses midline lower back pain and pain over right PSIS. Radiation of the pain into the buttocks thigh and right groin. He denies radiating pain down either lower extremity. He denies burning, numbness, tingling, shooting or electrical pain down either leg. Patient is currently taking gabapentin and oxycodone for his pain but states it is still severe. Pain today is rated as a 10 of 10. Pain is worse with movement, sitting and lying down. In terms of muscle damage condition is described as aching, stabbing, sharp, shooting, dull, tiring, exhausting, numb, throbbing, shock-like. Pain is negatively impacting patient's enjoyment of life, general activity, normal work, recreational activities, sleep, walking. 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 Answers questions appropriately. Fully engaged in examination. Skin: warm, dry, intact. PICC line left upper arm. Dressing dry clean intact. HEENT: Normocephalic. Hearing intact. Cardiac: External chest normal in appearance. Respiratory: No cough, audible wheezing or stridor. Abdomen: without gross distension. MS: No obvious swelling or deformities. Able to stand on bilateral tiptoes and bilateral heels.? Able to transition from sit to stand unassisted. Ambulates with bilaterally normal heel strike and toe off sLr neg bilaterally Alondra positive bilaterally Tender to palpation over right PSIS Tender over midline lumbar vertebrae and lumbar paraspinal muscles [place] positive on the right Thigh thrust positive on the right SI compression positive on the right Neurological: Oriented to person, place, time and situation. Thought process intact. No gait abnormalities appreciated. Psychiatric: Appropriate mood and affect. Good judgment and insight. Results Reviewed Results Reviewed: 08/29/2023 MR/MR lumbar spine wo con FINDINGS: Hypoplastic ribs the lowermost thoracic type segment. 5 nonrib-bearing lumbar-type vertebral bodies. Lumbar alignment is normal. The vertebral body heights are maintained. Disc volumes are preserved. There is disc desiccation at the L2-L3, L3-L4, and L4-L5 levels. Intraosseous hemangiomas within the L3 and L4 vertebral bodies. Abnormal bone marrow edema involving the right L4-L5 facets and adjacent posterior elements within associated facet joint effusion and significant T2 signal changes within the right paraspinal musculature throughout the entire lumbar spine, findings highly suggestive of right L4-L5 septic facet arthritis with adjacent myositis and phlegmon. Small 1.2 cm probable abscess projecting posteriorly from the upper aspect of the right L4-L5 facet joint on image 14 of series 3. No epidural abscess on these noncontrast series. Conus terminates at the T12-L1 level. L1-L2: Disc contour is normal. No central canal stenosis and no foraminal stenosis. L2-L3: Disc contour is normal. There is bilateral facet arthropathy. No central canal stenosis. There is mild foraminal encroachment bilaterally. L3-L4: Diffuse annular disc bulge and moderate bilateral facet arthropathy and ligamentum flavum thickening. No central canal stenosis. Mild to moderate bilateral foraminal stenosis. L4-L5: There is a diffuse annular disc bulge and there is severe bilateral facet arthropathy and ligamentum flavum thickening. Abnormal marrow signal within the right L4-L5 facets as discussed above. Phlegmon partially effaces the right L4-L5 neural foramen. Disc and facet arthropathy result in mild to moderate bilateral foraminal stenosis as well. L5-S1: Disc contour is normal. No central canal stenosis and no foraminal stenosis. IMPRESSION: - Imaging findings are most suggestive of right-sided septic facet arthritis at L4-L5 with significant adjacent paraspinal myositis and phlegmon as well as a probable 1.2 cm abscess projecting posteriorly from the upper aspect of the right L4-L5 facet joint into the right paraspinal soft tissues. Phlegmon partially effaces the right L4-L5 neural foramen. No epidural abscess. - Nonspecific enlarged retroperitoneal lymph nodes. 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 Patient currently receiving IV antibiotics for septic facet arthritis/osteomyelitis of lumbar spine. Per recent note with Infectious Disease patient will complete his IV antibiotics in 3 days with plan for 1 month of oral doxycycline to follow. Case was discussed with Dr. Pierre, center medical and lab director pain management. Patient was advised in order to qualify for any interventional management he would need to: Complete full course of IV antibiotics Complete 1 month of oral doxycycline as advised by Infectious Disease followed by 1 month of no antibiotics. After that 2 month. Will need blood cultures: Blood, urine, skin. We will also need neurosurgery evaluation/clearance. Referral has been placed to Dr. Tracy. Continue with opioid pain medications as prescribed by PCP. Patient advised of red flag symptoms and when to seek treatment in the emergency room. All questions and concerns were answered, patient agrees with the plan. Follow-up as per above, sooner if needed. Orders: Referrals Neuro Spine Referral G06.1 - Intraspinal abscess and granuloma, M46.26 - Osteomyelitis of vertebra, lumbar region Coding Level of Care Code New Pt Level 4 (53550) Diagnoses Acute osteomyelitis of lumbar spine M46.26 Epidural abscess, L2-L5 G06.1
[2023-10-13 10:26] VITALS: BP 217/101; PULSE 78; O2SAT 98; BMI 40.5
[2023-10-13 10:27] VITALS: BP 220/101; PULSE 80; O2SAT 98
[2023-10-13 11:13] VITALS: BP 184/87
== END 2023-10-13 11:10 | disposition home or self-care (01) ==
PROVIDERS: PCP Family Medicine; Referring Provider Surgery Vascular Surgery; Visit Provider Registered Nurse Emergency
DX: M46.26 Osteomyelitis of vertebra, lumbar region (principal); G06.1 Intraspinal abscess and granuloma
CPT/HCPCS: 99204

== ENCOUNTER → 2023-10-13 10:07 | Outpatient (BNVA) | payer MEDICARE, MEDICAID, SELFPAY | PROVIDERS: PCP Family Medicine; Referring Provider Surgery Vascular Surgery; Visit Provider Registered Nurse Emergency | DX: M46.26 Osteomyelitis of vertebra, lumbar region (principal); G06.1 Intraspinal abscess and granuloma | CPT/HCPCS: 99202 ==

== ENCOUNTER 2024-01-02 06:19 | Inpatient (IN) | payer MEDICARE, MEDICAID, SELFPAY ==
[2024-01-02] VITALS (13 sets, daily range): BP systolic 115–190; BP diastolic 58–95; PULSE 64–96; RESP 15–25; TEMP 34.1–36.7; O2SAT 94–99; BMI 40.6; BMI 39.4
--- NOTE | ~2024-01-02 | MR_ITS ---
EXAMINATION: MR FOOT WITHOUT AND WITH CONTRAST, LEFT CLINICAL INFORMATION: Osteopenia of the second digit. COMPARISON: Radiograph dated 08/15/2023. TECHNIQUE: MRI of the left foot was performed before and after the intravenous administration of 10 mL Gadavist on a high-field scanner. FINDINGS: Great toe is surgically absent at the level of the first metatarsal head. There is a small residual fluid collection at the surgical site in this region along the distal margin of the first metatarsal near the site of amputation measuring 1.8 x 0.7 x 0.9 cm. This collection may correspond to an abscess or sterile postoperative seroma. There is mild reactive edema signal and enhancement at the distal margin of the first metatarsal without having a loss of normal marrow signal intensity on T1-weighted images. There is a small effusion at the second MTP joint with associated synovitis, osseous destruction at the second toe proximal phalangeal base, marked periostitis at the second toe proximal phalanx, and marrow edema signal, enhancement, and diminished T1 signal at the second metatarsal and second toe proximal phalanx. These findings are consistent with septic arthritis and osteomyelitis. The robust periosteal bone formation at the second toe proximal phalangeal base suggests a degree of chronic osteomyelitis. The middle and distal phalanges of the second toe appear well-preserved. There is edema signal within the third toe proximal phalangeal base and shaft with associated hyperenhancement of mildly diminished signal intensity on T1-weighted images, also concerning for early osteomyelitis. There is edema signal within the distal phalanx third toe with normal signal intensity on T1-weighted images, potentially reactive in nature. Patchy foci of marrow edema signal noted within the navicular and cuneiforms and are likely result of multifocal osteoarthritis in the midfoot with associated cartilage loss and marginal osteophytes. There is a multilocular ganglion cyst at the dorsal aspect of the naviculocuneiform joints measuring 1.7 cm in length. There is fatty atrophy within the intrinsic foot musculature with increased T2 signal as can be seen with denervation change from diabetic neuropathy. There is marked thickening of the central band of the plantar fascia which may be the result of an old injury. MR/MR foot LT wo/w con IMPRESSION: 1. Septic arthritis at the second MTP joint with associated osteomyelitis of the second metatarsal and second toe proximal phalanx. There is likely chronic component of the osteomyelitis of the second metatarsal base as evidenced by the significant periosteal bone formation. 2. Probable early osteomyelitis of the third toe proximal phalanx. 3. Status post great toe amputation with a small residual fluid collection at the surgical site which may correspond to an abscess or sterile postoperative seroma. 4. 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
--- NOTE | ~2024-01-02 | XR_ITS ---
EXAMINATION: XR CHEST CLINICAL INFORMATION: Leg cramping COMPARISON: None available. TECHNIQUE: Frontal view of the chest was obtained. FINDINGS: Cardiac silhouette is normal in size. The lungs are adequately aerated. Subtle linear opacity in the medial right lung base is nonspecific but most suggestive of atelectasis. There is no gross lobar consolidation. No pleural effusion or pneumothorax. XR/XR chest 1V IMPRESSION: Suspected right basilar atelectasis.
--- NOTE | ~2024-01-02 | XR_ITS ---
EXAMINATION: XR FOOT, LEFT CLINICAL INFORMATION: Cramping COMPARISON: Left foot x-rays 08/15/2023 TECHNIQUE: AP, lateral, and oblique views of the left foot. FINDINGS: Patient is status post first transmetatarsal amputation. Ostomy site is unremarkable. There is some minimal overlying soft tissue swelling. There is cortical irregularity and prominent hypertrophic bone formation centered around the proximal aspect of the second proximal phalanx, nonspecific. There also appears to be some subtle cortical irregularity involving the proximal most aspect of the third proximal phalanx. Small posterior and plantar calcaneal enthesophytes. XR/XR foot LT min 3V IMPRESSION: Significantly abnormal appearance of the second proximal phalanx. Findings are nonspecific but may represent a healing fracture. Alternatively, an erosive process with reactive changes is possible. Clinical correlation is recommended. MRI imaging can be obtained if there is a concern for osteomyelitis.
--- NOTE | 2024-01-02 06:31 | ECG_ITS ---
Test Reason : weakness Blood Pressure : / mmHG Vent. Rate : 067 BPM Atrial Rate : 067 BPM P-R Int : 140 ms QRS Dur : 084 ms QT Int : 414 ms P-R-T Axes : 048 067 073 degrees QTc Int : 437 ms Normal sinus rhythm Normal ECG When compared with ECG of 10-NOV-2011 15:47, Vent. rate has decreased BY 46 BPM Referred By: Tammy Dinh Electronically Signed By:BHASKAR MENDEZ
[2024-01-02 06:38] LABS: MANUAL DIFF FLAG NO
--- NOTE | 2024-01-02 06:39 | ED_ITS ---
HPI - General Adult General Chief complaint: General Medical Stated complaint: LOW BLOOD SUGAR Time Seen by Provider: 01/02/24 06:39 Source: patient and EMS Mode of arrival: ambulatory Limitations: no limitations History of Present Illness ED Provider: Benitez EVERETT HPI narrative: 53 year old male hx of osteo, diabetes, htn, obesity, MAURI, epidural abscess presents w/ shakiness and feeling cold since this morning. Reports that initially he called 911 for these complaints as well as for dizziness and tunnel vision which have since subsided. He tells me he is a diabetic and usually wears a dexcom, however, it feel off yesterday and this AM his sugars were low. He tells me that he has never felt this way before. He was been dosing his insulin based off of how often he is peeing. When EMS arrived his POC was 66 oral glucose administered and POC improved to 83. Patietn also complaining of second left toe pain. Denies cp, sob, nausea, vomiting, headache, vision changes, dizziness, weakness, fevers, chills at this time. Related Data Home Medications ?Medication ?Instructions ?Recorded ?Confirmed albuterol sulfate 90 mcg/actuation 2 puff inhalation Q4H PRN Wheezing 08/15/23 08/29/23 aerosol inhaler (Ventolin HFA) atorvastatin 80 mg tablet 80 mg PO BEDTIME 08/15/23 08/29/23 baclofen 10 mg tablet 10 mg PO TID 08/15/23 08/29/23 carvedilol 12.5 mg tablet 12.5 mg PO BIDWM 08/15/23 08/29/23 cetirizine 10 mg tablet 10 mg PO DAILY 08/15/23 08/29/23 chlorthalidone 50 mg tablet 50 mg PO QAM 08/15/23 08/29/23 dulaglutide 4.5 mg/0.5 mL 4.5 mg subcut FR 08/15/23 08/29/23 subcutaneous pen injector (Trulicity) empagliflozin 25 mg tablet 25 mg PO QAM 08/15/23 08/29/23 (Jardiance) epinephrine 0.3 mg/0.3 mL 0.3 mg IM DIRECTED PRN Allergic 08/15/23 08/29/23 injection, auto-injector Reaction fluticasone propionate 50 1 spray intranasal BID PRN Allergy 08/15/23 08/29/23 mcg/actuation nasal Symptoms spray,suspension gabapentin 800 mg tablet 800 mg PO TID 08/15/23 08/29/23 hydralazine 50 mg tablet 50 mg PO TID 08/15/23 08/29/23 insulin aspart 0 unit subcut TIDAC 08/15/23 08/29/23 (niacinamide)(U-100) 100 unit/mL(3 mL) subcutaneous pen (Fiasp FlexTouch U-100 Insulin) losartan 100 mg tablet 100 mg PO QAM 08/15/23 08/29/23 magnesium oxide 400 mg (241.3 mg 400 mg PO QAM 08/15/23 08/29/23 magnesium) tablet nicotine 21 mg/24 hr daily 1 patch transdermal DAILY 08/15/23 08/29/23 transdermal patch oxycodone 5 mg tablet 5 mg PO Q6H PRN severe pain 08/15/23 08/29/23 spironolactone 25 mg tablet 25 mg PO QAM 08/15/23 08/29/23 tamsulosin 0.4 mg capsule 0.4 mg PO QAM 08/15/23 08/29/23 insulin glargine 100 unit/mL (3 30 unit subcut BEDTIME 08/29/23 08/29/23 mL) subcutaneous pen (Basaglar KwikPen U-100 Insulin) Previous Rx's ?Medication ?Instructions ?Recorded piperacillin-tazobactam 4.5 gram 4.5 g IV Q6H #1 ea 08/30/23 intravenous solution vancomycin 1 gram/250 mL in 0.9 % 1 g (250 mL) IV Q12H 08/30/23 sodium chloride intravenous Allergies Allergy/AdvReac Type Severity Reaction Status Date / Time naproxen [From NAPROSYN] AdvReac Severe STOMACH Verified 01/02/24 06:28 UPSET lisinopril [LISINOPRIL] AdvReac Mild COUGH Verified 01/02/24 06:28 SEAFOOD Allergy Unknown ANAPHYLAXIS Uncoded 08/15/23 09:17 Review of Systems 2 Review of Systems: Yes all other systems are reviewed and are negative PMFSH Past Medical History Attestation statement: The following information was validated with the patient. 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 Tobacco Use Status: Current everyday Tobacco user Tobacco use type: Cigarette Cigarette Packs Per Day: 1 Cigarettes Per Day: 20.0 Smoked in Last 30 Days: Yes Second Hand Smoke Exposure: No Use of substances other than those prescribed or required for medical reasons: Yes Substance Use Type: Marijuana Advance Directives: Yes Advance Directives on File: Yes Advance Directives Date on File: 08/30/23 Do you have a plan to hurt others: No Plan service: No Physical Exam ED Vital Signs: Vital Signs - 24 hr 01/02/24 06:36 01/02/24 07:26 01/02/24 08:15 Temperature 93.4 F L 94.7 F L 97.5 F Pulse Rate 66 64 Respiratory Rate 20 15 Blood Pressure 175/92 H 144/67 H Pulse Oximetry 99 96 Oxygen Delivery Method Room Air Room Air 01/02/24 08:23 01/02/24 08:32 01/02/24 09:03 Temperature 96.0 F L Pulse Rate Respiratory Rate 20 18 Blood Pressure Pulse Oximetry Oxygen Delivery Method 01/02/24 09:47 01/02/24 10:45 Temperature 97.3 F 97.8 F Pulse Rate 71 Respiratory Rate 18 Blood Pressure 115/58 L Pulse Oximetry 96 Oxygen Delivery Method Room Air BMI result Body Mass Index 40.6 slight hypertension low temp - heating blanket placed Appearance: Alert.? Oriented X3.? No acute distress.? Head: Normocephalic, atraumatic, no step-offs or deformities Eyes: Pupils equal, round and reactive to light.? Neck: Normal inspection.? Neck supple.? CVS: Normal heart rate and rhythm.? Pulses normal.? Respiratory: No respiratory distress.? Breath sounds normal.? Abdomen: Soft and nontender.? Skin: Skin warm and dry.? Normal skin color.? Normal skin turgor.? Extremities: No lower extremity edema.? No calf ttp. 5/5 strength to bilateral upper and lower extremities 2+ DP,AT,PT pulses equal and b/l. No foot drop, slight numbness to b/l le distally. Left second toe w/ swelling and ttp on exam. Neuro: Oriented X 3.? No motor deficit.? No sensory deficit. CN 2-12 intact Course Reevaluation(s) Reevaluation #1: CBC with slight leukocytosis 10.9. Chemistry with slightly elevated BUN and creatinine hydration ordered, lactic acid 2.1, repeat lactic 1.2. Total CPK 178, not consistent with rhabdo. UA without infection. Chest x-ray suspected right basilar atelectasis. X-ray of foot significantly abnormal appearance of 2nd proximal phalanx these findings nonspecific could represent healing fracture however normal history of trauma he had trauma to his great toe on 08/15/2023 however not his 2nd proximal phalanx. Also concerning for possible erosive process with reactive changes, MRI recommended. I did discuss this case with Infectious Disease who recommends starting antibiotics and obtaining an MRI to further evaluate this. On exam patient does have significant tenderness to palpation and swelling he does have a history of osteomyelitis as well as epidural abscess for this reason will err on the side of caution with antibiotics, plan hospital admission Time: 11:02 Medications Administered Discontinued Medications Generic Name Dose Route Start Last Admin Trade Name Freq PRN Reason Stop Dose Admin Cefepime HCl 1 gm/ Sodium 50 mls @ 100 mls/hr 01/02/24 06:37 01/02/24 09:02 Chloride IV 01/02/24 07:06 Infused ONCE ONE Infusion Sodium Chloride 1,000 mls @ 999 mls/hr 01/02/24 06:40 01/02/24 08:43 Ns IV 01/02/24 07:40 Infused .Q1H1M ONE Infusion Sodium Chloride 3,738 mls @ 3,738 mls/hr 01/02/24 07:56 01/02/24 08:50 Ns 30 ml/kg infuse over 1 hr (3738 ml) 01/02/24 08:55 3,738 mls/hr IV Administration .Q1H STA Morphine Sulfate 4 mg 01/02/24 07:59 01/02/24 08:23 Morphine Sulfate 4 Mg/Ml Cartridge IVPUSH 01/02/24 08:00 4 mg ONCE ONE Administration Protocol Medical Decision Making Medical Decision Making [facility] Narrative: [id number] 53 year old male presents w/ low sugars, shaky and dizziness from home X few days worsening the past few hours. Dexcom at home hasn't been since last night. Also reporting left toe pain hx of osteo View it appears as though patient was recently on cefepime and vanco starting on 08/28 and finish 10/09, he was scheduled to finish it on October 14 however he missed a few doses. According to Infectious Disease no his left foot infection had cleared on 10/12/2023. PE - benign however, vitals slightly low temp ( warming blanket in place) and slight HTN ( history of) Hx and pe concerning for hypoglycemia likely due to inappropriate dosing of insulin. Unlikely stroke, posterior stroke, ich. Will rule out electrolyte abnormalities. Toe pain ? gout vs osteo. Raulley fx, nv compromise Plan- labs, urine. Differential Diagnosis Differential Diagnoses: The differential diagnosis associated with the presentation includes Hx and pe concerning for hypoglycemia likely due to inappropriate dosing of insulin. Unlikely stroke, posterior stroke, ich. Will rule out electrolyte abnormalities. Toe pain ? gout vs osteo. Raulley fx, nv compromise Admission/Observation Consideration of admission/observation: Escalation of care including admission/observation considered Possible Consult Healthcare Provider Management of the patient was discussed with: Director Industrial Relations (infectious disease ) Lab Data [facility] Lab Attestation statement: I reviewed the patient's lab results. 01/02/24 06:34 01/02/24 06:34 Labs: Lab Results 01/02/24 01/02/24 01/02/24 Range/Units 06:24 06:34 06:55 WBC 10.9 H (4.8-10.8) X10*3/uL RBC 5.72 D (4.60-5.80) X10*6/uL Hgb 16.1 D (14.0-18.0) g/dl Hct 48.9 D (42.0-52.0) % MCV 85.5 (80.0-98.0) fL MCH 28.1 (27.0-33.0) pg MCHC 32.9 (31.0-36.0) g/dl RDW 14.8 (11.0-16.0) % Plt Count 365 (160-400) X10*3/uL MPV 8.6 L (9.4-12.4) fL Immature Gran % (Auto) 0.6 H (0.0-0.4) % Neut % (Auto) 58.7 (45-73) % Lymph % (Auto) 27.1 (20-40) % [place] % (Auto) 9.1 (2-11) % Eos % (Auto) 3.4 (0-4) % Baso % (Auto) 1.1 (0-2) % Lymph # (Auto) 3.0 (1.2-4.9) X10*3/uL [place] # (Auto) 1.0 (0.1-1.2) X10*3/uL Eos # (Auto) 0.4 (0.0-0.4) X10*3/uL Baso # (Auto) 0.1 (0.0-0.2) X10*3/uL Abs Immat Gran (auto) 0.07 H (0.00-0.03) X10*3/uL Absolute Neuts (auto) 6.4 (2.0-8.3) x10*3/uL Absolute Nucleated RBC 0.000 (0.0-0.012) X10*3/uL Nucleated RBC % (auto) 0.0 (0.0-0.2) /100WBC ESR 24 H (0-15) MM/HR Sodium 140 (135-145) mmol/L Potassium 4.0 (3.3-5.1) mmol/L Chloride 102 (96-108) mmol/L Carbon Dioxide 23 (22-29) mmol/L Anion Gap 19 (12-20) BUN 28 H (9-16) mg/dL Creatinine 1.25 (0.5-1.4) mg/dL Estim Creat Clear Calc 91.2 Estimated GFR > 60 POC Glucose 83 (60-115) mg/dL Random Glucose 68 (60-115) mg/dL Lactic Acid 2.1 H* (0.5-2.0) mmol/L Lactic Acid F/U @ 2Hr (0.5-2.0) mmol/L Calcium 11.0 H D (8.4-10.2) mg/dL Total Bilirubin 0.8 (0.0-1.0) mg/dL Direct Bilirubin 0.3 (0.0-0.5) mg/dL AST 21 (5-37) U/L ALT 21 (0-40) U/L Alkaline Phosphatase 111 (39-117) U/L Total Creatine Kinase 178 H (38-174) U/L C-Reactive Protein 0.35 (< or = 0.50) mg/dL Total Protein 9.2 H (6.5-8.0) g/dL Albumin 4.7 (3.5-5.0) g/dL Lipase 12 (8-78) U/L TSH 3.03 (0.32-4.0) uIU/mL Urine Color Urine Appearance Urine pH (5.0-9.0) Ur Specific [place] (1.005-1.025) Urine Protein (Neg-Trace) mg/dL Urine Glucose (UA) (Negative) mg/dL Urine Ketones (Negative) mg/dL Urine Blood (Negative) Urine Nitrite (Negative) Ur Leukocyte Esterase (Negative) Urine RBC (0-2) /HPF Urine WBC (0-5) /HPF Ur Squamous Epith Cells (0-2) /HPF Urine Bacteria (None Seen) Hyaline Casts (0-2) /LPF 01/02/24 01/02/24 01/02/24 Range/Units 07:49 09:25 09:29 WBC (4.8-10.8) X10*3/uL RBC (4.60-5.80) X10*6/uL Hgb (14.0-18.0) g/dl Hct (42.0-52.0) % MCV (80.0-98.0) fL MCH (27.0-33.0) pg MCHC (31.0-36.0) g/dl RDW (11.0-16.0) % Plt Count (160-400) X10*3/uL MPV (9.4-12.4) fL Immature Gran % (Auto) (0.0-0.4) % Neut % (Auto) (45-73) % Lymph % (Auto) (20-40) % [place] % (Auto) (2-11) % Eos % (Auto) (0-4) % Baso % (Auto) (0-2) % Lymph # (Auto) (1.2-4.9) X10*3/uL [place] # (Auto) (0.1-1.2) X10*3/uL Eos # (Auto) (0.0-0.4) X10*3/uL Baso # (Auto) (0.0-0.2) X10*3/uL Abs Immat Gran (auto) (0.00-0.03) X10*3/uL Absolute Neuts (auto) (2.0-8.3) x10*3/uL Absolute Nucleated RBC (0.0-0.012) X10*3/uL Nucleated RBC % (auto) (0.0-0.2) /100WBC ESR (0-15) MM/HR Sodium (135-145) mmol/L Potassium (3.3-5.1) mmol/L Chloride (96-108) mmol/L Carbon Dioxide (22-29) mmol/L Anion Gap (12-20) BUN (9-16) mg/dL Creatinine (0.5-1.4) mg/dL Estim Creat Clear Calc Estimated GFR POC Glucose 180 H (60-115) mg/dL Random Glucose (60-115) mg/dL Lactic Acid (0.5-2.0) mmol/L Lactic Acid F/U @ 2Hr 1.2 (0.5-2.0) mmol/L Calcium (8.4-10.2) mg/dL Total Bilirubin (0.0-1.0) mg/dL Direct Bilirubin (0.0-0.5) mg/dL AST (5-37) U/L ALT (0-40) U/L Alkaline Phosphatase (39-117) U/L Total Creatine Kinase (38-174) U/L C-Reactive Protein (< or = 0.50) mg/dL Total Protein (6.5-8.0) g/dL Albumin (3.5-5.0) g/dL Lipase (8-78) U/L TSH (0.32-4.0) uIU/mL Urine Color Yellow Urine Appearance Clear Urine pH 6.5 (5.0-9.0) Ur Specific [place] 1.025 (1.005-1.025) Urine Protein 100 (2+) H (Neg-Trace) mg/dL Urine Glucose (UA) >=1000 H (Negative) mg/dL Urine Ketones Negative (Negative) mg/dL Urine Blood Trace H (Negative) Urine Nitrite Negative (Negative) Ur Leukocyte Esterase Negative (Negative) Urine RBC 3-5 H (0-2) /HPF Urine WBC 0-5 (0-5) /HPF Ur Squamous Epith Cells 0-2 (0-2) /HPF Urine Bacteria None Seen (None Seen) Hyaline Casts 0-2 (0-2) /LPF Independent Interpretation I performed an independent interpretation of an: Plain X-Ray ( XR/XR foot LT min 3V IMPRESSION: Significantly abnormal appearance of the second proximal phalanx. Findings are nonspecific but may represent a healing fracture. Alternatively, an erosive process with reactive changes is possible. Clinical correlation is recommended. MRI imaging can be obtained if ) Interpretation: 07 XR/XR chest 1V IMPRESSION: Suspected right basilar atelectasis. Radiology Impression Discussion of test interpretation with radiology: I have reviewed the radiologist's reading. External Record Review External record reviewed: Inpatient record, Office record, Outpatient record, Prior outpatient labs, Prior outpatient radiology, Primary care record and Outside ED record Critical Care Time Critical Care Time Critical Care Time: Yes Total Critical Care Time: 45 Attestation: I attest to this time spent taking care of the patient, obtaining history, physical, reviewing labs, imaging, speaking to my attending, specialist or hospitalist. Discharge Plan Discharge Clinical Impression: Toe pain, left, Hypoglycemia, Hypothermia Patient Disposition: Admitted As Inpatient Prescriptions: No Action atorvastatin 80 mg tablet 80 mg PO BEDTIME carvedilol 12.5 mg tablet 12.5 mg PO BIDWM cetirizine 10 mg Tablet 10 mg PO DAILY chlorthalidone 50 mg tablet 50 mg PO QAM spironolactone 25 mg tablet 25 mg PO QAM magnesium oxide 400 mg (241.3 mg magnesium) tablet 400 mg PO QAM tamsulosin 0.4 mg capsule 0.4 mg PO QAM gabapentin 800 mg tablet 800 mg PO TID baclofen 10 mg tablet 10 mg PO TID nicotine 21 mg/24 hr Patch 24 Hour 1 patch TRANSDERMAL DAILY hydralazine 50 mg tablet 50 mg PO TID epinephrine 0.3 mg/0.3 mL auto-injector 0.3 mg IM DIRECTED PRN (Reason: Allergic Reaction) albuterol sulfate [Ventolin HFA] 90 mcg/actuation HFA aerosol inhaler 2 puff inhalation Q4H PRN (Reason: Wheezing) losartan 100 mg tablet 100 mg PO QAM fluticasone propionate 50 mcg/actuation spray,suspension 1 spray intranasal BID PRN (Reason: Allergy Symptoms) oxycodone 5 mg tablet 5 mg PO Q6H PRN (Reason: severe pain) Hold Instructions: hold while taking higher dose of oxycodone Jardiance 25 mg tablet 25 mg PO QAM Fiasp FlexTouch U-100 Insulin 100 unit/mL (3 mL) insulin pen 0 unit subcut TIDAC Hold Instructions: follow blood sugars for now Protocol: Insulin Correction Scale Less than or equal to 110 ---- Give (units): 0 111 to 150 Give (units): 0 151 to 200 Give (units): 2 201 to 250 Give (units): 4 251 to 300 Give (units): 6 301 to 350 Give (units): 8 Greater than 350 Give (units): 10 Call MD if Blood Glucose > : 350 Trulicity 4.5 mg/0.5 mL pen injector 4.5 mg subcut FR insulin glargine [Basaglar KwikPen U-100 Insulin] 100 unit/mL (3 mL) insulin pen 30 unit subcut BEDTIME piperacillin-tazobactam 4.5 gram Recon Soln 4.5 g IV Q6H Qty: 1 0RF vancomycin in 0.9 % sodium chl 1 gram/250 mL solution 1 g IV Q12H Print Language: Telugu
[2024-01-02 06:40] LABS: Basophils Absolute Auto 0.1 X10*3/uL (0.0-0.2); Basophils Percent Auto 1.1 % (0-2); Eosinophils Absolute Auto 0.4 X10*3/uL (0.0-0.4); Eosinophils Percent Auto 3.4 % (0-4); Hematocrit 48.9 % (42.0-52.0); Imm Gran Abs Auto 0.07 X10*3/uL (0.00-0.03); Imm Gran Pct Auto 0.6 % (0.0-0.4); Lymphocytes Percent Auto 27.1 % (20-40); Mean Corpuscular HGB Conc 32.9 g/dl (31.0-36.0); Mean Corpuscular Hemoglobin 28.1 pg (27.0-33.0); Mean Corpuscular Volume 85.5 fL (80.0-98.0); Mean Platelet Volume 8.6 fL (9.4-12.4); Monocytes Percent Auto 9.1 % (2-11); Neutrophils Absolute Auto 6.4 x10*3/uL (2.0-8.3); Neutrophils Percent Auto 58.7 % (45-73); Platelet Count 365 X10*3/uL (160-400); Red Blood Count 5.72 X10*6/uL (4.60-5.80); Red Cell Distribution Width 14.8 % (11.0-16.0); White Blood Count 10.9 X10*3/uL (4.8-10.8)
[2024-01-02 06:43] LABS: Glucose, Whole Blood 83 mg/dL (60-115)
[2024-01-02] MEDS: 0.9 % Sodium Chloride 1,000 ML 999 ML IV (06:44)
[2024-01-02 06:52] LABS: Hemoglobin 16.1 g/dl (14.0-18.0)
[2024-01-02 07:02] LABS: Alanine Aminotransferase 21 U/L (0-40); Albumin Level 4.7 g/dL (3.5-5.0); Alkaline Phosphatase 111 U/L (39-117); Anion Gap 19 (12-20); Aspartate Amino Transferase 21 U/L (5-37); Bilirubin Direct 0.3 mg/dL (0.0-0.5); Bilirubin Total 0.8 mg/dL (0.0-1.0); Blood Urea Nitrogen 28 mg/dL (9-16); C Reactive Protein 0.35 mg/dL (< or = 0.50); Carbon Dioxide 23 mmol/L (22-29); Chloride 102 mmol/L (96-108); Creatinine Clr Calc Pharmacy 91.2; Estimated Glomerular Filt Rate > 60; Glucose Random 68 mg/dL (60-115); Lipase 12 U/L (8-78); Sodium 140 mmol/L (135-145); Total Protein 9.2 g/dL (6.5-8.0)
[2024-01-02] MEDS: cefEPime HCl 1 GM in 0.9 % Sodium Chloride 50 ML IV (07:03)
[2024-01-02 07:14] LABS: Lactic Acid 2.1 mmol/L (0.5-2.0)
--- NOTE | 2024-01-02 07:29 | PC.NURSE ---
Resumed care of pt at 0700. Pt endorsing 8/10 leg pain/cramping, provider Torrie made aware. Pt on bear hugger, rectal temp 94.7. A/ox4, respirations even and unlabored, IV abx hung per MAR, pt son at bedside. Call caba within reach, pt aware of ongoing plan of care.
[2024-01-02 07:52] LABS: Glucose, Whole Blood 180 mg/dL (60-115)
[2024-01-02 08:00] LABS: TSH reflex Free T4 3.03 uIU/mL (0.32-4.0)
--- NOTE | 2024-01-02 08:00 | PC.NURSE ---
this RN clarified with Zhanna ELLER post order of IVF if she wanted the pt to be a sepsis alert. Provider verbalized to this RN that she was not ruling him as a sepsis alert, that she thinks that he is hypothermic from his hypoglycemia and does not want to rule him as a sepsis alert
[2024-01-02] MEDS: Morphine Sulfate 4 MG/ML CARTRIDGE IVPUSH (08:23)
[2024-01-02 08:26] LABS: Erythrocyte Sedimentation Rate 24 MM/HR (0-15)
[2024-01-02 08:59] LABS: Reflex Lactate? Lactic Acid Added
[2024-01-02 09:36] LABS: Appearance Urine Clear; Color Urine Yellow; Glucose Urine UA >=1000 mg/dL (Negative); Leukocyte Esterase Urine Negative (Negative); Nitrite Urine Negative (Negative); PH 6.5 (5.0-9.0); Specific Gravity - Urine 1.025 (1.005-1.025); UMIC TRIGGER UACC YES; Urine Blood Trace (Negative); Urine Ketones Negative (Negative); Urine Protein 100 (2+) mg/dL (Neg-Trace)
[2024-01-02 09:47] LABS: ~Lactic Acid-LAB USE ONLY 1.2 mmol/L (0.5-2.0)
[2024-01-02 09:47] LABS: Bacteria Urine None Seen (None Seen); Hyaline Casts Urine 0-2 /LPF (0-2); Squamous Epithelial Cell Urine 0-2 /HPF (0-2); WBC Urine 0-5 /HPF (0-5)
[2024-01-02] MEDS: Piperacillin Sodium/Tazobactam 3.375 GM in 0.9 % Sodium Chloride 50 ML IV ×3 (11:17→22:56)
--- NOTE | 2024-01-02 11:21 | P.HPHOSP_ITS ---
History of Present Illness Date of Service: 01/02/24 Chief Complaint: Fatigue and myalgias Pt is a 53-year-old male with a PMH significant for?HTN, HLD, insulin-dependent type 2 diabetes, hx of osteomyelitis of left great toe s/p amputation, diabetic polyneuropathy, asthma, mood disorder, MAURI on CPAP and recent paraspinal abscess who presents to the ED with?dizziness, chills, diaphoresis, some difficulty breathing, and shaking. Patient reports he woke this morning feeling like his sugars were low. Reports eating ice cream, milk, and juice while his son called EMS. States he has never felt so cold before. On arrival, EMS noted he was diaphoretic, shivering, and with tripod breathing. POC was 66 and oral glucose was administered with improvement to 83. POC 68 on arrival to the ED where he was given D10. Pt normally monitors blood sugars via a Dexcom, but reports sensor fell off yesterday morning when he bumped into a doorway. Previously used a glucose metered reader, but that took a swan dive off a third floor balcony 4-5 months ago and pt has yet to replace it. States he has been dosing his insulin since yesterday based off of how often he was urinating. Also states has been experiencing worsening left 2nd toe swelling and pain after ?bumping? it a couple of weeks ago. Denies any erythema, open wounds, or discharge. No chest pain/pressure, palpitations. Denies headache. No nausea, vomiting, abdominal pain. Of note, patient was started on vanc and cefepime on 08/28 for paraspinal abscess and was transferred to [place] where he developed drug rash thought to the from cefepime. Was controllable with Benadryl. In the ED pt was hypothermic as low as 93.4 and hypertensive up to 175/92, vitals otherwise WNL. Labs were significant for mild leukocytosis of 10.9, ESR 24, creatinine 1.25 (around recent baseline), initial POC 68, lactic acid 2.1 with follow up 1.2, CRP 0.35. No significant electrolyte abnormalities. Stable H&H. CXR showed suspected right basilar atelectasis. X-ray of left foot shows significantly abnormal appearing 2nd proximal phalanx, findings nonspecific but may represent a healing fracture or erosive process related to osteomyelitis. EKG demonstrated normal sinus rhythm without significant evidence of ST elevations or depressions. Pt was treated with IVF, morphine, cefepime, and vancomycin. Pt will be admitted to the hospital for treatment and further evaluation of hypothermia likely secondary to hypoglycemia from insulin overdose from poor glucose monitoring and question of osteomyelitis of left foot second digit. 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 Tobacco Use Status: Current everyday Tobacco user Tobacco use type: Cigarette Cigarette Packs Per Day: 1 Cigarettes Per Day: 20.0 Smoked in Last 30 Days: Yes Second Hand Smoke Exposure: No Use of substances other than those prescribed or required for medical reasons: Yes Substance Use Type: Marijuana Advance Directives: Yes Advance Directives on File: Yes Advance Directives Date on File: 08/30/23 Do you have a plan to hurt others: No Plan service: No Meds Allergies Allergy/AdvReac Type Severity Reaction Status Date / Time naproxen [From NAPROSYN] AdvReac Severe STOMACH Verified 01/02/24 06:28 UPSET cefepime AdvReac Intermediate Rash Verified 01/02/24 12:29 lisinopril [LISINOPRIL] AdvReac Mild COUGH Verified 01/02/24 06:28 SEAFOOD Allergy Unknown ANAPHYLAXIS Uncoded 08/15/23 09:17 Active Medications: Current Medications Dextrose (D10) 250 mls @ 750 mls/hr IV Q15M PRN PRN Reason: per Hypoglycemia Standing Ord. Vancomycin HCl (Vancomycin/Ns) 2,000 mg in 500 mls @ 250 mls/hr IV ONCE ONE Stop: 01/02/24 12:49 Home Medications ?Medication ?Instructions ?Recorded ?Confirmed ?Last Taken ?Type albuterol sulfate 90 mcg/actuation 2 puff inhalation Q4H PRN Wheezing 03/04/24 07/22/24 03/18/24 History aerosol inhaler (Ventolin HFA) atorvastatin 80 mg tablet 80 mg PO BEDTIME 08/15/23 01/02/24 01/01/24 History baclofen 10 mg tablet 10 mg PO TID 08/15/23 01/02/24 01/01/24 History cetirizine 10 mg tablet 10 mg PO DAILY 08/15/23 01/02/24 01/01/24 History chlorthalidone 50 mg tablet 50 mg PO DAILY 08/15/23 01/02/24 01/01/24 History empagliflozin 25 mg tablet 25 mg PO DAILY 08/15/23 01/02/24 01/01/24 History (Jardiance) epinephrine 0.3 mg/0.3 mL 0.3 mg IM DIRECTED PRN Allergic 08/15/23 01/02/24 Unknown History injection, auto-injector Reaction fluticasone propionate 50 1 spray intranasal BID PRN Allergy 08/15/23 01/02/24 Unknown History mcg/actuation nasal Symptoms spray,suspension gabapentin 800 mg tablet 800 mg PO TID 08/15/23 01/02/24 01/01/24 History insulin aspart 10 unit subcut TIDAC 08/15/23 01/02/24 01/01/24 History (niacinamide)(U-100) 100 unit/mL(3 mL) subcutaneous pen (Fiasp FlexTouch U-100 Insulin) losartan 100 mg tablet 100 mg PO DAILY 08/15/23 01/02/24 01/01/24 History magnesium oxide 400 mg (241.3 mg 400 mg PO DAILY 08/15/23 01/02/24 01/01/24 History magnesium) tablet oxycodone 5 mg tablet 5 mg PO Q6H PRN severe pain 08/15/23 01/02/24 01/01/24 History spironolactone 25 mg tablet 25 mg PO DAILY 08/15/23 01/02/24 01/01/24 History tamsulosin 0.4 mg capsule 0.4 mg PO DAILY 08/15/23 01/02/24 01/01/24 History insulin glargine 100 unit/mL (3 60 unit subcut BEDTIME 03/18/24 07/22/24 07/21/24 History mL) subcutaneous pen (Basaglar KwikPen U-100 Insulin) acetaminophen 650 mg 650 mg PO Q8H PRN pain 01/02/24 01/02/24 Unknown History tablet,extended release dulaglutide 0.75 mg/0.5 mL 0.75 mg subcut FR 01/02/24 01/02/24 12/30/23 History subcutaneous pen injector (Trulicity) hydralazine 25 mg tablet 25 mg PO TID 01/02/24 01/02/24 01/01/24 History labetalol 100 mg tablet 100 mg BID 01/02/24 01/02/24 01/01/24 History Physical Exam 2 Vital Signs and Narrative: Vital Signs: Last Vital Signs Temp 97.8 F 01/02/24 10:45 Pulse 71 01/02/24 09:47 Resp 18 01/02/24 09:47 BP 115/58 L 01/02/24 09:47 Pulse Ox 96 01/02/24 09:47 O2 Del Method Room Air 01/02/24 09:47 BMI result Body Mass Index 40.6 Constitutional: Alert, in no acute distress. Mental Status: Oriented to person, place and time. Eyes: Pupils are equal, round, and reactive to light. Ear, Nose, and Throat: Oropharynx clear, mucous membranes moist. Ears and nose without deformities. Trachea midline. Respiratory: Clear to auscultation bilaterally. No wheezing, rales, or rhonchi. Cardiovascular: S1, S2 regular. No murmurs, rubs, or gallops. Gastrointestinal: Abdomen soft, non-tender, obese. Normal bowel sounds. Neurologic: Cranial nerves II-XII are grossly intact bilaterally. No focal neurological deficits. Moves all extremities spontaneously. Skin: Warm, dry. Extremities: No edema. Small healed wound on plantar aspect of right great toe. Left foot s/p great toe amputation. Second digit of left foot with moderate swelling and tenderness to palpation of DIP. No erythema open noted. As pictured below. Psychiatric: Normal mood and affect. Results Labs 01/02/24 06:34 01/02/24 06:34 Labs: Laboratory Results - last 24 hr 01/02/24 01/02/24 01/02/24 06:24 06:34 06:55 MCV 85.5 MCH 28.1 MCHC 32.9 RDW 14.8 Plt Count 365 MPV 8.6 L Immature Gran % (Auto) 0.6 H Neut % (Auto) 58.7 Lymph % (Auto) 27.1 [place] % (Auto) 9.1 Eos % (Auto) 3.4 Baso % (Auto) 1.1 Lymph # (Auto) 3.0 [place] # (Auto) 1.0 Eos # (Auto) 0.4 Baso # (Auto) 0.1 Abs Immat Gran (auto) 0.07 H Absolute Neuts (auto) 6.4 Absolute Nucleated RBC 0.000 Nucleated RBC % (auto) 0.0 ESR 24 H Anion Gap 19 Estim Creat Clear Calc 91.2 Estimated GFR > 60 POC Glucose 83 Random Glucose 68 Lactic Acid 2.1 H* Lactic Acid F/U @ 2Hr Calcium 11.0 H D Total Bilirubin 0.8 Direct Bilirubin 0.3 AST 21 ALT 21 Alkaline Phosphatase 111 Total Creatine Kinase 178 H C-Reactive Protein 0.35 Total Protein 9.2 H Albumin 4.7 Lipase 12 TSH 3.03 Urine Color Urine Appearance Urine pH Ur Specific [place] Urine Protein Urine Glucose (UA) Urine Ketones Urine Blood Urine Nitrite Ur Leukocyte Esterase Urine RBC Urine WBC Ur Squamous Epith Cells Urine Bacteria Hyaline Casts 01/02/24 01/02/24 01/02/24 07:49 09:25 09:29 MCV MCH MCHC RDW Plt Count MPV Immature Gran % (Auto) Neut % (Auto) Lymph % (Auto) [place] % (Auto) Eos % (Auto) Baso % (Auto) Lymph # (Auto) [place] # (Auto) Eos # (Auto) Baso # (Auto) Abs Immat Gran (auto) Absolute Neuts (auto) Absolute Nucleated RBC Nucleated RBC % (auto) ESR Anion Gap Estim Creat Clear Calc Estimated GFR POC Glucose 180 H Random Glucose Lactic Acid Lactic Acid F/U @ 2Hr 1.2 Calcium Total Bilirubin Direct Bilirubin AST ALT Alkaline Phosphatase Total Creatine Kinase C-Reactive Protein Total Protein Albumin Lipase TSH Urine Color Yellow Urine Appearance Clear Urine pH 6.5 Ur Specific [place] 1.025 Urine Protein 100 (2+) H Urine Glucose (UA) >=1000 H Urine Ketones Negative Urine Blood Trace H Urine Nitrite Negative Ur Leukocyte Esterase Negative Urine RBC 3-5 H Urine WBC 0-5 Ur Squamous Epith Cells 0-2 Urine Bacteria None Seen Hyaline Casts 0-2 Imaging Radiologist's Impressions: Impressions Chest X-Ray 01/02/24 07:47 IMPRESSION: Suspected right basilar atelectasis. Foot X-Ray 01/02/24 07:47 IMPRESSION: Significantly abnormal appearance of the second proximal phalanx. Findings are nonspecific but may represent a healing fracture. Alternatively, an erosive process with reactive changes is possible. Clinical correlation is recommended. MRI imaging can be obtained if there is a concern for osteomyelitis. Assessment and Plan (1) Hypoglycemia: Status: Acute (2) Hypothermia: Status: Acute (3) Toe pain, left: Status: Acute Plan Pt is a 53-year-old male with a PMH significant for?HTN, HLD, insulin-dependent type 2 diabetes, hx of osteomyelitis of left great toe s/p amputation, diabetic polyneuropathy, asthma, mood disorder, MAURI on CPAP and recent paraspinal abscess who presents to the ED with?dizziness, chills, diaphoresis, some difficulty breathing, and shaking. Pt will be admitted to the hospital for treatment and further evaluation of hypothermia likely secondary to hypoglycemia from insulin overdose from poor glucose monitoring and question of osteomyelitis of left foot second digit. Hypoglycemia Pt unable to read POC since yesterday morning, has been dosing insulin based on urinary frequency Pt with hypothermia, rigors, diaphoresis, dizziness, difficulty breathing Pt had ice cream, milk, and juice; EMS found POC 68 on arrival where given oral gluocse Given D10 in the ED Sliding scale insulin, lantus, continue Jardiance Diabetic diet Monitor POC closely Hypothermia, resolved Temperature 93.4 at time of arrival In the setting of hypoglycemia Currently normothermic at 97.8 Left second toe pain and swelling Secondary to striking foot 2 weeks ago X-ray showing significantly abnormal appearance of 2nd proximal phalanx, findings nonspecific could represent a healing fracture versus erosive process secondary to osteomyelitis Mildly elevated ESR, CRP WNL ID was consulted and recommended IV abx and MRI given his past atypical osteo presentation Patient does not sepsis criteria: Hypothermia secondary to hypoglycemia, no tachycardia, tachypnea, leukocytosis Pt received IVF and started on broad-spectrum antibiotics in the ED Continue empiric coverage with vanc and Zosyn, started on 01/02/2024 Follow MRI results Lactic acidosis, resolved Lactic acid 2.1 with repeat 1.2 after IVF in the ED Likely secondary to hypoglycemia, not sepsis Mild intermittent asthma Not in acute exacerbation Continue home inhalers HTN BP initially hypertensive, now slightly soft Patient on hydralazine, labetalol, losartan, chlorthalidone, and spironolactone Will hold daytime hypertensives for now and resume tomorrow morning Monitor BP Chronic lower back pain Continue home opioids, baclofen BPH Continue tamsulosin Full Code Attending:?Dr. Lake DVT Prophylaxis: Lovenox Pt will require a hospitalization of at least two nights for treatment of?treatment and further evaluation of hypothermia likely secondary to hypoglycemia from insulin overdose from poor glucose monitoring and question of osteomyelitis of left foot second digit. Patient will require close monitoring of vitals and administration of empiric IV antibiotics while awaiting MRI results. Quality Stroke Does the patient have a stroke diagnosis?: No VTE Prior VTE?: No VTE Risk Level:: Medical - moderate - high VTE Device Contraindication: Treatment Not Indicated VTE Drug Contraindication: N/A - Med Ordered
--- NOTE | 2024-01-02 11:54 | PHA.MEDREC ---
Addendum entered by Jing Cordova 01/02/24 13:08: Trulicity is now 0.75 mg every Tuesday. Addendum entered by Jing Cordova 01/02/24 12:32: went back down to talk to patient. Patient remembered the Dr did switch his Carvedilol 12.5 mg bid to Labetalol 100 mg bid. Original Note: Pharmacy Consult ? Medication Reconciliation Pharmacy has completed the medication reconciliation. Spoke to patient to confirm med list. patient states he is still on Carvedilol 12.5 mg BIDWM, last fill date was 06-01-23 for 90 days, and Spironolactone 25 mg daily, last fill date 10-07-23 for 30 days. Patient says he takes Fiasp FlexTouch 10 units tid, and Basaglar KwikPen 60 units at bedtime.
[2024-01-02] MEDS: vancomycin/NS 2,000 MG/500 ML PLAST..BAG 250 MG IV (11:58)
[2024-01-02] MEDS: Nicotine 21 MG PATCH.TD24 TRANSDERMA (12:42)
[2024-01-02] MEDS: Enoxaparin Sodium 40 MG/0.4 ML SYRINGE SUBCUT (12:43)
--- NOTE | 2024-01-02 12:56 | PHA.PROG ---
Admission Date/Time: Indication: Bone and Joint Weight in k.6 kg Adjusted body weight in Kg: [place] body weight in Kg: Obesity Dosing Indication % IBW: Serum Creatinine - Last 168 Hours 01/02/24 06:34 Creatinine 1.25 Estimated CrCl and GFR - Last 168 Hours 01/02/24 06:34 Estim Creat Clear Calc 91.2 Estimated GFR > 60 Vancomycin Loading Dose: 2000mg Current Vancomycin Dosing Regimen: Vancomycin Monitoring using AUC goal of 400 - 600 range with trough as surrogate marker: Date and Time for next Vancomycin Level to be drawn:01/02 @1000 Pharmacist Comments on Vancomycin Plan: Will start a regimen of 1g q12h after the loading dose. Projected AUC is 494 mg/L and a trough of 15.6 mg/L. Vancomycin dosing will take advantage of [employer] as a clinical decision support tool that uses Bayesian modeling to calculate individual patient's pharmacokinetic parameters and forecast the patient's drug concentration time course with the target goal AUC 24 range of 400 - 600 mg/L/hr.
[2024-01-02] MEDS: Gabapentin 400 MG CAPSULE 800 MG PO ×2 (15:17→20:49)
[2024-01-02] MEDS: Baclofen 10 MG TABLET PO ×2 (15:17→20:48)
[2024-01-02] MEDS: hydrALAZINE HCl 25 MG TABLET PO ×2 (15:17→20:48)
[2024-01-02 16:21] LABS: Glucose, Whole Blood 227 mg/dL (60-115)
[2024-01-02 16:59] LABS: Glucose, Whole Blood 215 mg/dL (60-115)
[2024-01-02] MEDS: oxyCODONE HCl Immed Release 5 MG TABLET PO ×2 (17:25→23:25)
[2024-01-02] MEDS: Insulin Lispro 100 UNIT/ML 3 ML VIAL SUBCUT ×2 (17:26→20:49)
[2024-01-02] MEDS: 0.9 % Sodium Chloride Flush 3 ML SYRINGE IVFLUSH ×2 (17:26→20:49)
[2024-01-02] MEDS: gadobutroL 10 ML VIAL IVPUSH (19:53)
[2024-01-02 20:42] LABS: Glucose, Whole Blood 223 mg/dL (60-115)
[2024-01-02] MEDS: Atorvastatin Calcium 80 MG TABLET PO (20:48)
--- NOTE | 2024-01-03 00:41 | PC.NURSE ---
pt found to have 12 year old son at bedside after visiting hours against hospital policy. charge hand and house superintendent notified, and house superintendent and Dr. Camacho came to bedside to speak to patient. patient decided to leave ama lieu of finding transportation for son to go home. RN removed IV and patient decided to leave without signing any paperwork
--- NOTE | 2024-01-03 07:16 | PM.DS ---
DS: Providers Provider Date of Service: 01/03/24 Date of admission: 01/02/24 12:18 Primary care physician: Unknown Physician Consults: 01/02/24 10:50 Consult to Infectious Diseases Stat Consulting Provider: [facility] Reason for consultation: osteo DS: Diagnosis Discharge Diagnosis (1) Hypoglycemia: Status: Acute (2) Hypothermia: Status: Acute (3) Toe pain, left: Status: Acute DS: Summary Hospital Course Hospital Course: from initial hpi: 53-year-old male with a PMH significant for?HTN, HLD, insulin-dependent type 2 diabetes, hx of osteomyelitis of left great toe s/p amputation, diabetic polyneuropathy, asthma, mood disorder, MAURI on CPAP and recent paraspinal abscess who presents to the ED with?dizziness, chills, diaphoresis, some difficulty breathing, and shaking. Patient reports he woke this morning feeling like his sugars were low. Reports eating ice cream, milk, and juice while his son called EMS. States he has never felt so cold before. On arrival, EMS noted he was diaphoretic, shivering, and with tripod breathing. POC was 66 and oral glucose was administered with improvement to 83. POC 68 on arrival to the ED where he was given D10. Pt normally monitors blood sugars via a Dexcom, but reports sensor fell off yesterday morning when he bumped into a doorway. Previously used a glucose metered reader, but that took a swan dive off a third floor balcony 4-5 months ago and pt has yet to replace it. States he has been dosing his insulin since yesterday based off of how often he was urinating. Also states has been experiencing worsening left 2nd toe swelling and pain after ?bumping? it a couple of weeks ago. Denies any erythema, open wounds, or discharge. No chest pain/pressure, palpitations. Denies headache. No nausea, vomiting, abdominal pain. Of note, patient was started on vanc and cefepime on 08/28 for paraspinal abscess and was transferred to [place] where he developed drug rash thought to the from cefepime. Was controllable with Benadryl. In the ED pt was hypothermic as low as 93.4 and hypertensive up to 175/92, vitals otherwise WNL. Labs were significant for mild leukocytosis of 10.9, ESR 24, creatinine 1.25 (around recent baseline), initial POC 68, lactic acid 2.1 with follow up 1.2, CRP 0.35. No significant electrolyte abnormalities. Stable H&H. CXR showed suspected right basilar atelectasis. X-ray of left foot shows significantly abnormal appearing 2nd proximal phalanx, findings nonspecific but may represent a healing fracture or erosive process related to osteomyelitis. EKG demonstrated normal sinus rhythm without significant evidence of ST elevations or depressions. Pt was treated with IVF, morphine, cefepime, and vancomycin. Pt will be admitted to the hospital for treatment and further evaluation of hypothermia likely secondary to hypoglycemia from insulin overdose from poor glucose monitoring and question of osteomyelitis of left foot second digit. hospital course: Patient was admitted for acute hypoglycemia and hypothermia as well as left 2nd toe infection. Was given oral glucose and D10 and hypoglycemia improved. Hypothermia improved. For toe infection was given IV antibiotics and plan was to continue with IV antibiotics and follow-up MRI. However, patient decided to leave against medical advice overnight. Time Attestation Discharge Coordination Time (in mins): 10 Quality: Safe Use of Opioids Does Pt have an Active Cancer Diagnosis on the Problem List?: No Quality: Stroke Does the patient have a stroke diagnosis?: No Physical Exam Vital Signs: Vital Signs: Last Vital Signs Temp 97.6 F 01/02/24 20:00 Pulse 68 01/02/24 20:00 Resp 18 01/02/24 20:00 BP 172/95 H 01/02/24 20:00 Pulse Ox 99 01/02/24 20:00 O2 Del Method Room Air 01/02/24 20:00 BMI result Body Mass Index 39.4 Constitutional: Alert, in no acute distress. Mental Status: Oriented to person, place and time. Eyes: Pupils are equal, round, and reactive to light. Ear, Nose, and Throat: Oropharynx clear, mucous membranes moist. Ears and nose without deformities. Trachea midline. Respiratory: Clear to auscultation bilaterally. No wheezing, rales, or rhonchi. Cardiovascular: S1, S2 regular. No murmurs, rubs, or gallops. Gastrointestinal: Abdomen soft, non-tender, obese. Normal bowel sounds. Neurologic: Cranial nerves II-XII are grossly intact bilaterally. No focal neurological deficits. Moves all extremities spontaneously. Skin: Warm, dry. Extremities: No edema. Small healed wound on plantar aspect of right great toe. Left foot s/p great toe amputation. Second digit of left foot with moderate swelling and tenderness to palpation of DIP. No erythema open noted. As pictured below. Psychiatric: Normal mood and affect DS: Data Data Completed and Pending Completed studies during hospitalization [Text1]: Procedures Detachment at Left 1st Toe, Complete, Open Approach (08/15/23) Labs on day of discharge: Laboratory Results - last 24 hr 01/02/24 01/02/24 01/02/24 06:34 07:49 09:25 ESR 24 H POC Glucose 180 H Lactic Acid F/U @ 2Hr Total Creatine Kinase 178 H TSH 3.03 Urine Color Yellow Urine Appearance Clear Urine pH 6.5 Ur Specific [place] 1.025 Urine Protein 100 (2+) H Urine Glucose (UA) >=1000 H Urine Ketones Negative Urine Blood Trace H Urine Nitrite Negative Ur Leukocyte Esterase Negative Urine RBC 3-5 H Urine WBC 0-5 Ur Squamous Epith Cells 0-2 Urine Bacteria None Seen Hyaline Casts 0-2 01/02/24 01/02/24 01/02/24 09:29 16:17 16:54 ESR POC Glucose 227 H 215 H Lactic Acid F/U @ 2Hr 1.2 Total Creatine Kinase TSH Urine Color Urine Appearance Urine pH Ur Specific [place] Urine Protein Urine Glucose (UA) Urine Ketones Urine Blood Urine Nitrite Ur Leukocyte Esterase Urine RBC Urine WBC Ur Squamous Epith Cells Urine Bacteria Hyaline Casts 01/02/24 20:36 ESR POC Glucose 223 H Lactic Acid F/U @ 2Hr Total Creatine Kinase TSH Urine Color Urine Appearance Urine pH Ur Specific [place] Urine Protein Urine Glucose (UA) Urine Ketones Urine Blood Urine Nitrite Ur Leukocyte Esterase Urine RBC Urine WBC Ur Squamous Epith Cells Urine Bacteria Hyaline Casts Discharge Plan Discharge Patient Disposition: Left Against Medical Advice Discharge Diagnosis: toe infection Referrals: Physician,Unknown J [Primary Care Provider] - 1 Week Discharge Medications: No Action atorvastatin 80 mg tablet 80 mg PO BEDTIME cetirizine 10 mg Tablet 10 mg PO DAILY chlorthalidone 50 mg tablet 50 mg PO DAILY spironolactone 25 mg tablet 25 mg PO DAILY magnesium oxide 400 mg (241.3 mg magnesium) tablet 400 mg PO DAILY tamsulosin 0.4 mg capsule 0.4 mg PO DAILY gabapentin 800 mg tablet 800 mg PO TID baclofen 10 mg tablet 10 mg PO TID epinephrine 0.3 mg/0.3 mL auto-injector 0.3 mg IM DIRECTED PRN (Reason: Allergic Reaction) albuterol sulfate [Ventolin HFA] 90 mcg/actuation HFA aerosol inhaler 2 puff inhalation Q4H PRN (Reason: Wheezing) losartan 100 mg tablet 100 mg PO DAILY fluticasone propionate 50 mcg/actuation spray,suspension 1 spray intranasal BID PRN (Reason: Allergy Symptoms) oxycodone 5 mg tablet 5 mg PO Q6H PRN (Reason: severe pain) Hold Instructions: hold while taking higher dose of oxycodone Jardiance 25 mg tablet 25 mg PO DAILY Fiasp FlexTouch U-100 Insulin 100 unit/mL (3 mL) insulin pen 10 unit subcut TIDAC Hold Instructions: follow blood sugars for now Protocol: Insulin Correction Scale Less than or equal to 110 ---- Give (units): 0 111 to 150 Give (units): 0 151 to 200 Give (units): 2 201 to 250 Give (units): 4 251 to 300 Give (units): 6 301 to 350 Give (units): 8 Greater than 350 Give (units): 10 Call MD if Blood Glucose > : 350 acetaminophen 650 mg tablet extended release 650 mg PO Q8H PRN (Reason: pain) hydralazine 25 mg tablet 25 mg PO TID labetalol 100 mg tablet 100 mg BID Trulicity 0.75 mg/0.5 mL pen injector 0.75 mg subcut FR insulin glargine [Basaglar KwikPen U-100 Insulin] 100 unit/mL (3 mL) insulin pen 60 unit subcut BEDTIME Discharge Orders: Discharge Order (Routine); Ordered 01/03/24 Ordered By: Cristino Lake Print Language: Romansh Care Plan Goals: left ama Health Concerns: left ama Plan of Treatment: left ama Assessment: lefta am Discharge Date/Time: 01/03/24 00:00
== END 2024-01-03 | disposition left against medical advice (07) | DRG 918 ==
LOC: HO.ED 11:03 → HO.EDOVER 12:57 → HO.IMC 13:36
PROVIDERS: Emergency Medicine; Physician Assistant; Admitting Provider Student in an Organized Health Care Education/Training Program; Emergency Provider Emergency Medicine; Visit Provider Internal Medicine
DX: T38.3X1A Poisoning by insulin and oral hypoglycemic [antidiabetic] drugs, accidental (unintentional), initial encounter (principal); M86.9 Osteomyelitis, unspecified; F17.210 Nicotine dependence, cigarettes, uncomplicated; Z71.6 Tobacco abuse counseling; G47.33 Obstructive sleep apnea (adult) (pediatric); E11.649 Type 2 diabetes mellitus with hypoglycemia without coma; R68.0 Hypothermia, not associated with low environmental temperature; E11.42 Type 2 diabetes mellitus with diabetic polyneuropathy; J45.20 Mild intermittent asthma, uncomplicated; M54.59 Other low back pain; G89.29 Other chronic pain; E11.69 Type 2 diabetes mellitus with other specified complication; Z79.4 Long term (current) use of insulin; Z79.899 Other long term (current) drug therapy
CPT/HCPCS: 36415; 71045; 73630; 73720; 80048; 80076; 81001; 82550; 82947; 83605; 83690; 84443; 85025; 85652; 86140; 87040; 93005; 94660; 99285; A9585; J0692; J1650; J2270; J2543; J3370

== ENCOUNTER → 2024-01-02 06:31 | Outpatient (BNV) | payer MEDICARE, MEDICAID, SELFPAY | PROVIDERS: Admitting Provider Student in an Organized Health Care Education/Training Program; Emergency Provider Emergency Medicine; Visit Provider Internal Medicine | DX: R53.1 Weakness (principal); I10 Essential (primary) hypertension | CPT/HCPCS: 93010 ==

== ENCOUNTER → 2024-01-02 12:18 | Outpatient (BNV) | payer MEDICARE, MEDICAID, SELFPAY | PROVIDERS: Admitting Provider Student in an Organized Health Care Education/Training Program; Emergency Provider Emergency Medicine; Visit Provider Student in an Organized Health Care Education/Training Program | DX: E16.2 Hypoglycemia, unspecified (principal); T68.XXXA Hypothermia, initial encounter; M79.675 Pain in left toe(s) | CPT/HCPCS: 99223; 99239 ==

== ENCOUNTER 2024-02-03 10:07 | Outpatient (REF) | payer MEDICARE, MEDICAID, SELFPAY ==
[2024-02-03 14:17] LABS: MANUAL DIFF FLAG NO
[2024-02-03 14:44] LABS: Basophils Absolute Auto 0.1 X10*3/uL (0.0-0.2); Basophils Percent Auto 1.2 % (0-2); Eosinophils Absolute Auto 0.3 X10*3/uL (0.0-0.4); Eosinophils Percent Auto 3.2 % (0-4); Hematocrit 44.7 % (42.0-52.0); Hemoglobin 14.4 g/dl (14.0-18.0); Imm Gran Abs Auto 0.04 X10*3/uL (0.00-0.03); Imm Gran Pct Auto 0.4 % (0.0-0.4); Lymphocytes Absolute Auto 2.2 X10*3/uL (1.2-4.9); Mean Corpuscular HGB Conc 32.2 g/dl (31.0-36.0); Mean Corpuscular Hemoglobin 27.9 pg (27.0-33.0); Mean Corpuscular Volume 86.5 fL (80.0-98.0); Mean Platelet Volume 9.4 fL (9.4-12.4); Monocytes Absolute Auto 0.6 X10*3/uL (0.1-1.2); Monocytes Percent Auto 6.4 % (2-11); Neutrophils Percent Auto 64.8 % (45-73); Platelet Count 305 X10*3/uL (160-400); Red Blood Count 5.17 X10*6/uL (4.60-5.80); Red Cell Distribution Width 14.7 % (11.0-16.0); White Blood Count 9.3 X10*3/uL (4.8-10.8)
[2024-02-03 15:00] LABS: Uric Acid 5.2 mg/dL (3.4-7.0)
[2024-02-03 15:23] LABS: Erythrocyte Sedimentation Rate 16 MM/HR (0-15)
== END 2024-02-03 10:08 | disposition home or self-care (01) ==
LOC: HO.CHCLDS 10:07
PROVIDERS: Visit Provider Pediatrics
DX: M79.672 Pain in left foot (principal)
CPT/HCPCS: 36415; 84550; 85025; 85652

== ENCOUNTER 2024-04-26 11:37 | Outpatient (REF) | payer MEDICARE, MEDICAID, SELFPAY | END 2024-04-26 11:38 | disposition home or self-care (01) | LOC: HO.XRAY 11:37 | PROVIDERS: PCP Family Medicine; Visit Provider Family Medicine | DX: S91.109A Unspecified open wound of unspecified toe(s) without damage to nail, initial encounter (principal); M79.672 Pain in left foot | CPT/HCPCS: 73630 ==

== ENCOUNTER 2024-06-25 12:54 | Outpatient (AMB) | payer MEDICARE, MEDICAID, SELFPAY ==
[2024-06-25 13:53] VITALS: BP 172/90; PULSE 85; O2SAT 96; BMI 41.3
--- NOTE | 2024-06-25 13:53 | HO.NEPHOV ---
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 Accompanied by: Self / Same As Patient Allergies naproxen [From NAPROSYN] Adverse Reaction (Severe, Verified 06/25/24 13:59) STOMACH UPSET cefepime Adverse Reaction (Intermediate, Verified 06/25/24 13:59) Rash lisinopril [LISINOPRIL] Adverse Reaction (Mild, Verified 06/25/24 13:59) COUGH SEAFOOD Allergy (Unknown, Uncoded 08/15/23 09:17) ANAPHYLAXIS Medication List - Last Reconciled 06/25/24 by Brandon Hernandez MD acetaminophen ER 650 mg PO Q8H PRN albuterol sulfate 90 mcg/actuation (Ventolin HFA) 2 puffs inhalation Q4H PRN atorvastatin 80 mg PO BEDTIME baclofen 10 mg PO TID cetirizine 10 mg PO DAILY chlorthalidone 50 mg PO DAILY empagliflozin (Jardiance) 25 mg PO DAILY epinephrine 0.3 mg IM DIRECTED PRN fluticasone propionate 50 mcg/actuation 1 spray intranasal BID PRN gabapentin 800 mg PO TID hydralazine 100 mg PO TID insulin aspart (niacinamide) 100 unit/mL (3 mL) (Fiasp FlexTouch U-100 Insulin) 10 units See Protocol subcut TIDAC insulin glargine (Basaglar KwikPen U-100 Insulin) 60 units subcut BEDTIME labetalol 300 mg PO BID losartan 100 mg PO DAILY magnesium oxide 400 mg PO DAILY ondansetron HCl 4 mg PO Q8H PRN oxycodone 5 mg PO Q6H PRN spironolactone 25 mg PO DAILY tamsulosin 0.4 mg PO DAILY HPI Comments Details: 53-year-old man with a history of diabetes mellitus since 2003 and longstanding hypertension has been referred for evaluation hypertension CKD. Blood sugars have been poorly controlled until recently. He is on multiple antihypertensive medications. History of diabetic foot ulcer. 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 Tobacco Use Status: Current everyday Tobacco user Tobacco use type: Cigarette Cigarette Packs Per Day: 1 Cigarettes Per Day: 20 e-Cigarette/Vaping Use: Never Used Second Hand Smoke Exposure: No Substance Use Type: Marijuana Advance Directives Date on File: 08/30/23 service: No Review of Systems Const Denies fever(s) and Denies weight loss Card Denies chest pain Resp Denies cough and Denies hemoptysis GI Denies abdominal pain, Denies diarrhea and Denies nausea Musc Denies back pain Neuro Denies focal weakness Physical Exam Vital Signs: Last Vital Signs Pulse 85 06/25/24 13:53 BP 172/90 H 06/25/24 13:53 Pulse Ox 96 06/25/24 13:53 Oxygen Delivery Method Room Air 06/25/24 13:53 BMI result Body Mass Index 41.3 Comfortable Obese Neck supple no JVD. Lungs entry equal no rales. Heart S1-S2 heard no gallop or rub. Abdomen soft nontender. Neuro alert awake oriented. No asterixis. Extremities no edema. Foot ulcer present Results Reviewed Nephrology Results: Hgb 14.4 g/dl (14.0-18.0) 02/03/24 WBC 9.3 X10*3/uL (4.8-10.8) 02/03/24 Plt Count 305 X10*3/uL (160-400) 02/03/24 Sodium 140 mmol/L (135-145) 01/02/24 Potassium 4.0 mmol/L (3.3-5.1) 01/02/24 Chloride 102 mmol/L (96-108) 01/02/24 Carbon Dioxide 23 mmol/L (22-29) 01/02/24 BUN 28 mg/dL (9-16) H 01/02/24 Creatinine 1.25 mg/dL (0.5-1.4) 01/02/24 Calcium 11.0 mg/dL (8.4-10.2) H 01/02/24 Urine Protein 100 (2+) mg/dL (Neg-Trace) H 01/02/24 Assessment & Plan Assessment & Plan (1) CKD (chronic kidney disease): Code(s): N18.9 - Chronic kidney disease, unspecified Category: Medical (2) HTN (hypertension): Code(s): I10 - Essential (primary) hypertension Category: Medical (3) Type 2 diabetes mellitus: Code(s): E11.9 - Type 2 diabetes mellitus without complications Category: Medical Qualifiers: Diabetes mellitus ad terminal makeup operator insulin use: with jail use Diabetes mellitus complication status: without complication Qualified Code(s): E11.9 - Type 2 diabetes mellitus without complications; Z79.4 - terminal operations manager (current) use of insulin Plan 53-year-old man with hypertension diabetes mellitus with CKD. Chronic kidney disease most likely due to underlying diabetic hypertensive kidney disease. Serum creatinine was 1.24 back in 12/31/2023. I will recheck the serum creatinine today. Workup initiated for CKD. Resistant hypertension. Multifactorial Continue current medications. Discussed importance of low-salt diet. He will benefit from weight loss. Add amlodipine 5 mg daily. He we will return to the office once the baseline workup is completed Orders: Orders Complete Blood Count no Diff Today N18.9 - Chronic kidney disease, unspecified Total Protein Urine Random Today N18.9 - Chronic kidney disease, unspecified Comprehensive Met. Panel Today N18.9 - Chronic kidney disease, unspecified UA and rflx microscopic Today N18.9 - Chronic kidney disease, unspecified Creatinine Urine Today N18.9 - Chronic kidney disease, unspecified US renal BI Today I10 - Essential (primary) hypertension, N18.9 - Chronic kidney disease, unspecified Medications: New amlodipine 5 mg PO DAILY 90 tabs 1RF Coding Level of Care Code New Pt Level 5 (22439) Diagnoses CKD (chronic kidney disease) N18.9 HTN (hypertension) I10 Type 2 diabetes mellitus without complication, with long-term current use of insulin E11.9; Z79.4 Diabetes mellitus jail insulin use: with jail use Diabetes mellitus complication status: without complication
== END 2024-06-25 14:20 | disposition home or self-care (01) ==
LOC: HO.HKA 12:54
PROVIDERS: PCP Family Medicine; Referring Provider Family Medicine; Visit Provider Internal Medicine Hypertension Specialist
DX: I12.9 Hypertensive chronic kidney disease with stage 1 through stage 4 chronic kidney disease, or unspecified chronic kidney disease (principal); E11.22 Type 2 diabetes mellitus with diabetic chronic kidney disease; N18.9 Chronic kidney disease, unspecified; Z79.4 Long term (current) use of insulin
CPT/HCPCS: 99204

== ENCOUNTER 2024-06-25 12:54 | Outpatient (REF) | payer MEDICARE, MEDICAID, SELFPAY ==
[2024-06-25 15:48] LABS: Hematocrit 43.4 % (42.0-52.0); Hemoglobin 14.3 g/dl (14.0-18.0); Mean Corpuscular HGB Conc 32.9 g/dl (31.0-36.0); Mean Corpuscular Hemoglobin 27.8 pg (27.0-33.0); Mean Corpuscular Volume 84.4 fL (80.0-98.0); Mean Platelet Volume 9.4 fL (9.4-12.4); Platelet Count 318 X10*3/uL (160-400); Red Blood Count 5.14 X10*6/uL (4.60-5.80); Red Cell Distribution Width 13.7 % (11.0-16.0); White Blood Count 10.4 X10*3/uL (4.8-10.8)
[2024-06-25 15:52] LABS: Appearance Urine Clear; Color Urine Yellow; Glucose Urine UA 100 mg/dL (Negative); Leukocyte Esterase Urine Negative (Negative); Nitrite Urine Negative (Negative); PH 6.5 (5.0-9.0); UMIC TRIGGER UA YES; Urine Blood Moderate (2+) (Negative); Urine Ketones Negative (Negative); Urine Protein >=1000 (4+) mg/dL (Neg-Trace)
[2024-06-25 15:56] LABS: Bacteria Urine None Seen (None Seen); Hyaline Casts Urine 0-2 /LPF (0-2); RBC Urine >20 /HPF (0-2); Squamous Epithelial Cell Urine 0-2 /HPF (0-2); WBC Urine 0-5 /HPF (0-5)
[2024-06-25 18:55] LABS: Creatinine Urine 78.85 mg/dL
[2024-06-25 19:26] LABS: Alanine Aminotransferase 18 U/L (0-40); Albumin Level 3.3 g/dL (3.5-5.0); Anion Gap 11 (12-20); Aspartate Amino Transferase 28 U/L (5-37); Bilirubin Total 0.6 mg/dL (0.0-1.0); Blood Urea Nitrogen 16 mg/dL (9-16); Carbon Dioxide 24 mmol/L (22-29); Chloride 108 mmol/L (96-108); Estimated Glomerular Filt Rate > 60; Glucose Random 153 mg/dL (60-115); Potassium 4.3 mmol/L (3.3-5.1); Sodium 139 mmol/L (135-145); Total Protein 7.1 g/dL (6.5-8.0)
[2024-06-25 20:15] LABS: Alkaline Phosphatase 114 U/L (39-117)
[2024-06-25 21:22] LABS: Total Protein Urine Random 640 mg/dL (<12)
== END 2024-06-25 12:55 | disposition home or self-care (01) ==
LOC: HO.LAB 12:54
PROVIDERS: PCP Family Medicine; Referring Provider Family Medicine; Visit Provider Internal Medicine Hypertension Specialist
DX: N18.9 Chronic kidney disease, unspecified (principal); E11.22 Type 2 diabetes mellitus with diabetic chronic kidney disease; I12.9 Hypertensive chronic kidney disease with stage 1 through stage 4 chronic kidney disease, or unspecified chronic kidney disease; I1A.0 Resistant hypertension; Z79.4 Long term (current) use of insulin; Z79.899 Other long term (current) drug therapy
CPT/HCPCS: 36415; 80053; 81001; 82570; 84156; 85027; 99202

== ENCOUNTER 2024-08-07 14:21 | Outpatient (AMB) | payer MEDICARE, MEDICAID, SELFPAY ==
[2024-08-07 14:35] VITALS: BP 120/72; PULSE 75; O2SAT 95; BMI 40.2
--- NOTE | 2024-08-07 14:35 | HO.NEPHOV ---
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 Accompanied by: Self / Same As Patient Allergies naproxen [From NAPROSYN] Adverse Reaction (Severe, Verified 08/07/24 14:37) STOMACH UPSET cefepime Adverse Reaction (Intermediate, Verified 08/07/24 14:37) Rash lisinopril [LISINOPRIL] Adverse Reaction (Mild, Verified 08/07/24 14:37) COUGH SEAFOOD Allergy (Unknown, Uncoded 08/15/23 09:17) ANAPHYLAXIS Medication List - Last Reconciled 08/07/24 by Brandon Hernandez MD acetaminophen ER 650 mg PO Q8H PRN albuterol sulfate 90 mcg/actuation (Ventolin HFA) 2 puffs inhalation Q4H PRN amlodipine 5 mg PO DAILY atorvastatin 80 mg PO BEDTIME baclofen 10 mg PO TID cetirizine 10 mg PO DAILY chlorthalidone 50 mg PO DAILY empagliflozin (Jardiance) 25 mg PO DAILY epinephrine 0.3 mg IM DIRECTED PRN fluticasone propionate 50 mcg/actuation 1 spray intranasal BID PRN gabapentin 800 mg PO TID hydralazine 100 mg PO TID insulin aspart (niacinamide) 100 unit/mL (3 mL) (Fiasp FlexTouch U-100 Insulin) 10 units See Protocol subcut TIDAC insulin glargine (Basaglar KwikPen U-100 Insulin) 60 units subcut BEDTIME labetalol 300 mg PO BID losartan 100 mg PO DAILY magnesium oxide 400 mg PO DAILY ondansetron HCl 4 mg PO Q8H PRN oxycodone 5 mg PO Q6H PRN spironolactone 25 mg PO DAILY tamsulosin 0.4 mg PO DAILY HPI Comments Details: 53-year-old man with a history of diabetes mellitus since 2003 and longstanding hypertension has been referred for evaluation hypertension CKD. Blood sugars have been poorly controlled until recently. He is on multiple antihypertensive medications. History of diabetic foot ulcer. 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 Lungs entry equal no rales. Heart S1-S2 heard no gallop or rub. Abdomen soft nontender. Neuro alert awake oriented. No asterixis. Extremities no edema. Foot ulcer present Results Reviewed Nephrology Results: Hgb 14.3 g/dl (14.0-18.0) 06/25/24 WBC 10.4 X10*3/uL (4.8-10.8) 06/25/24 Plt Count 318 X10*3/uL (160-400) 06/25/24 Sodium 139 mmol/L (135-145) 06/25/24 Potassium 4.3 mmol/L (3.3-5.1) 06/25/24 Chloride 108 mmol/L (96-108) 06/25/24 Carbon Dioxide 24 mmol/L (22-29) 06/25/24 BUN 16 mg/dL (9-16) 06/25/24 Creatinine 0.82 mg/dL (0.5-1.4) 06/25/24 Calcium 9.0 mg/dL (8.4-10.2) 06/25/24 Urine Protein >=1000 (4+) mg/dL (Neg-Trace) H 06/25/24 Urine Creatinine 78.85 mg/dL 06/25/24 Assessment & Plan Assessment & Plan (1) CKD (chronic kidney disease): Code(s): N18.9 - Chronic kidney disease, unspecified Category: Medical (2) HTN (hypertension): Code(s): I10 - Essential (primary) hypertension Category: Medical (3) Type 2 diabetes mellitus: Code(s): E11.9 - Type 2 diabetes mellitus without complications Category: Medical Qualifiers: Diabetes mellitus complication status: without complication Diabetes mellitus terminal system operator insulin use: with terminal system operator use Qualified Code(s): E11.9 - Type 2 diabetes mellitus without complications; Z79.4 - [facility] (current) use of insulin Plan 53-year-old man with hypertension diabetes mellitus with CKD. Chronic kidney disease most likely due to underlying diabetic hypertensive kidney disease. Serum creatinine was 1.24 back in 12/31/2023. Repeat Cr was 0.8 Resistant hypertension. Multifactorial Continue current medications. Responded well to the addition of Amlodipine 5 mg QD Discussed importance of low-salt diet. He will benefit from weight loss. Orders: Orders Basic Metabolic Panel 3 Months I10 - Essential (primary) hypertension, N18.9 - Chronic kidney disease, unspecified Total Protein Urine Random 3 Months I10 - Essential (primary) hypertension, N18.9 - Chronic kidney disease, unspecified UA and rflx microscopic 3 Months I10 - Essential (primary) hypertension, N18.9 - Chronic kidney disease, unspecified Creatinine Urine 3 Months I10 - Essential (primary) hypertension, N18.9 - Chronic kidney disease, unspecified Coding Level of Care Code Est Pt Level 4 (69049) Diagnoses CKD (chronic kidney disease) N18.9 HTN (hypertension) I10 Type 2 diabetes mellitus without complication, with long-term current use of insulin E11.9; Z79.4 Diabetes mellitus complication status: without complication Diabetes mellitus terminal system operator insulin use: with terminal system operator use
--- OUTSIDE RECORDS SUMMARY | 2024-08-07 18:01 | XMS_ITS | Encounter Summary ---
Author Organization [employer] Address [address] [place] [address] Care Team Providers Care Field Operations Manager Name Role Phone Milena Shoemaker MD Primary Care Provider [phone] Reason for Visit * Reason Comments Med Refill Encounter Details Date Type Department Care Team ([facility] st Contact Info) Description 10/18/2023 Refill [facility] [address] [place] [address] Milena Shoemaker MD [address] [place] [address] 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, limited to breakdown of skin (CMS/HCC) Social History Tobacco Use Types Packs/Day Years Used Date Smoking Tobacco: Every Day Cigarettes Passive Smoke Exposure: Past Smokeless Tobacco: Never Alcohol Use Standard Drinks/Week Comments Never 0 (1 standard drink = 0.6 oz pur e alcohol) Depression Answer Date Recorded Patient Health Questionnaire-9 Score 7 07/15/2022 Housing Stability Answer Date Recorded What is your housing situation today? I have anselmo chua 08/11/[address] you li ve. Do you have problems with any of the following? None of the above 08/11/2023 Food Insecurity Answer Date Recorded Within the past 12 months, y ou worried that your food would run out before you got money to buy more: Never True 08/11/2023 Within the past 12 months,th e food you bought just didn't last and you didn't have enough money to get more: Never True Transportation Answer Date Recorded In the past 12 months, has l ack of transportation kept you from medical appts, meetings, work or from getting things needed for daily living? No 08/11/2023 Utilities Answer Date Recorded In the past 12 months, has t he electric, gas, oil or water company threatened to shut off services in your home? No 08/11/2023 Depression Answer Date Recorded Patient Health Questionnaire-2 Score 1 07/15/2022 Sex and Gender Information Value Date Recorded Sex Assigned at Male 05/20/2022 2:16 PM EST Legal Sex Male 2:02 PM EST Gender Identity Male 05/20/2022 2:16 PM EST Sexual Orientation Straight 07/15/2022 12 :45 PM EST documented as of this encounter Plan of Treatment Upcoming Encounters Date Type Department Care Team (Late st Contact Info) Description 09/05/2024 9:30 AM EDT Clinical Support [facility] [address] [place] [address] Luma Dalton, LUIS [address] [place] [address] documented as of this encounter Visit Diagnoses Diagnosis 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, limited to breakdown of skin (CMS/HCC) documented in this encounter Additional Health Concerns Assessment Noted Time PHQ-9 Depression Total Score: 7 07/15/19 23 1:17 PM EST documented as of this encounter Care Teams Field Operations Manager Relationship Specialty Start Date End Date Milena Shoemaker MD [address] [place] [address] PCP - General Family Medicine 08/12/22 Maria G Sellers CNP Psychiatrist 02/23/23 documented as of this encounter
--- OUTSIDE RECORDS SUMMARY | 2024-08-07 18:01 | XMS_ITS | Encounter Summary ---
Author Organization [employer] Address 75 [facility] 7t [place] [address] Care Team Providers Care Earth Boring Machine Operator Name Role Phone Milena Shoemaker MD Primary Care Provider [phone] Reason for Visit * Reason Onset Date Comments Hospital Follow-up 09/23/2023 Encounter Details Date Type Department Care Team ([facility] Contact Info) Description 09/23/2023 Telephone [facility] CHC MED & PEDS [address] [place], [place] [phone] Milena Shoemaker MD [address] [place] [address] Hospital Follow-up Social History Tobacco Use Types Packs/Day Years Used Date Smoking Tobacco: Every Day Cigarettes Smokeless Tobacco: Never Alcohol Use Standard Drinks/Week [...] the past 12 months, has t he [employer], gas, oil or water company threatened to [...] PM EST documented as of this encounter Miscellaneous Notes * Telephone Encounter - Ale Fawad - 09/23/2023 10:51 AM EDT Tc from pt requesting a HDF appt. Hospital: [facility] then transferred to [facility] Date of admission: unknown Discharge date: 09/15 Diagnosed: Septic arthritis of vertebra and ID Please contact pt at [phone] documented in this encounter Plan of Treatment Upcoming Encounters Date Type Department Care Team (Late st Contact Info) Description 09/05/2024 9:30 AM EDT Clinical Support [facility] MED & PEDS [address] [place] [address] Luma Dalton, RN 505 [place] [address] documented as of this encounter Visit Diagnoses Not on filedocumented in this encounter Additional Health Concerns Assessment Noted Time PHQ-9 Depression Total Score: 7 07/15/19 23 1:17 PM EST documented as of this encounter Care Teams Earth Boring Machine Operator Relationship Specialty Start Date End Date Milena Shoemaker MD [address] [place] [address] PCP - General Family Medicine 08/12/22 Maria G Sellers CNP Psychiatrist 02/23/23 documented as of this encounter
--- OUTSIDE RECORDS SUMMARY | 2024-08-07 18:01 | XMS_ITS | Encounter Summary ---
Author Organization [employer] Address [address] [facility] 7t [place] [address] Care Team Providers Care Snuff Grinder Name Role Phone Milena Shoemaker MD Primary Care Provider [phone] Reason for Visit * Reason Comments Med Refill Encounter Details Date Type Department Care Team ([facility] st Contact Info) Description 01/23/2024 Refill [facility] CHC MED & PEDS [address] [place], [place] [phone] Olivia Garcia MD 505 [place] [address] Chronic midline low back pain without sciatica Social History Tobacco Use Types Packs/Day Years [...] t he electric, gas, oil or water [employer] threatened to shut off services in your [...] Description 09/05/2024 9:30 AM EDT Clinical Support [facility] MED & PEDS [address] [place] [address] Luma Dalton, LUIS [address] [place] [address] documented as of this encounter Visit Diagnoses Diagnosis Chronic midline low back pain without sciatica documented in this encounter Additional Health Concerns Assessment Noted Time PHQ-9 Depression Total Score: 7 07/15/19 23 1:17 PM EST documented as of this encounter Care Teams Snuff Grinder Relationship Specialty Start Date End Date Milena Shoemaker MD [address] [place] [address] PCP - General Family Medicine 08/12/22 Maria G Sellers CNP Psychiatrist 02/23/23 documented as of this encounter
--- OUTSIDE RECORDS SUMMARY | 2024-08-07 18:01 | XMS_ITS | Encounter Summary ---
Author Organization [employer] Address [address] [place] [address] [address] [address] Care Team Providers Care Sales Advisor Name Role Phone Milena Shoemaker MD Primary Care Provider [phone] Encounter Details Date Type Department Care Team (Late Contact Info) Description 11/10/2022 Abstract [place] [employer] Information Management [address] [place], [place] [phone] Milena Shoemaker MD [address] [place] [address] Social History Tobacco Use Types Packs/Day Years Used Date Smoking Tobacco: Every Day Cigarettes Smokeless Tobacco: Never Alcohol Use Standard Drinks/Week Comments Never 0 (1 standard drink = 0.6 oz pur e alcohol) Depression Answer Date Recorded Patient Health Questionnaire-9 Score 7 07/15/2022 Depression Answer Date Recorded Patient Health Questionnaire-2 Score 1 07/15/2022 Sex and Gender Information Value Date Recorded Sex Assigned at Male 05/20/2022 2:16 PM EST Legal Sex Male 2:02 PM EST Gender Identity Male 05/20/2022 2:16 PM EST Sexual Orientation Straight 07/15/2022 12 :45 PM EST COVID-19 Exposure Response Date Recorded In the last 10 days, have yo u been in contact with someone who was confirmed or suspected to have Coronavirus/COVID-19? No / Unsure 11/12/2022 8:33 AM EDT documented as of this encounter Plan of Treatment Upcoming Encounters Date Type Department Care Team (Late Contact Info) Description 09/05/2024 9:30 AM EDT Clinical Support [facility] CHC MED & PEDS [address] [place], [place] [phone] Luma Dalton RN 505 [place] [address] documented as of this encounter Visit Diagnoses Not on filedocumented in this encounter Additional Health Concerns Assessment Noted Time PHQ-9 Depression Total Score: 7 07/15/19 23 1:17 PM EST documented as of this encounter Care Teams Sales Advisor Relationship Specialty Start Date End Date Milena Shoemaker MD 230 [place] [address] PCP - General Family Medicine 08/12/22 Maria G Sellers CNP Psychiatrist 02/23/23 documented as of this encounter
--- OUTSIDE RECORDS SUMMARY | 2024-08-07 18:01 | XMS_ITS | Encounter Summary ---
Author Organization [facility] Address [address] [place] [address] Phone Care Team Providers Care Machinery Cleaner Name Role Phone Milena Shoemaker MD Primary Care Provider [phone] Encounter Details Date Type Department Care Team (Late st Contact Info) Description 11/05/2022 Documentation Only [facility] [address] [place] [address] Milena Shoemaker MD [address] [place], [place] [phone] Social History Tobacco Use Types Packs/Day Years Used Date Smoking Tobacco: Never Assessed Sex and Gender Information Value Date Recorded Sex Assigned at Not on file Legal Sex Male 2:57 PM EDT Gender Identity Not on file Sexual Orientation Not on file documented as of this encounter Plan of Treatment Not on file documented as of this encounter Visit Diagnoses Not on filedocumented in this encounter Care Teams Machinery Cleaner Relationship Specialty Start Date End Date Milena Shoemaker MD [address] [place], [place] [phone] PCP - General Family Medicine 11/05/22 documented as of this encounter
--- OUTSIDE RECORDS SUMMARY | 2024-08-07 18:01 | XMS_ITS | Encounter Summary ---
Author Organization [employer] Address 75 [facility] 7t [place] [address] Care Team Providers Care Gun Fitter Name Role Phone Milena Shoemaker MD Primary Care Provider [phone] Reason for Visit * Reason Onset Date Comments Med Refill 04/10/2024 Encounter Details Date Type Department Care Team ([facility] st Contact Info) Description 04/10/2024 Refill [facility] CHC MED & PEDS 505 [place], [place] [phone] Milena Shoemaker MD 505 [place] [address] Chronic midline low back pain without sciatica [...] Description 09/05/2024 9:30 AM EDT Clinical Support [facility] MED & PEDS 505 [place] [address] Luma Dalton, LUIS [address] [place] [address] documented as of this encounter Visit Diagnoses Diagnosis Chronic midline low back pain without sciatica documented in this encounter Additional Health Concerns Assessment Noted Time PHQ-9 Depression Total Score: 7 07/15/19 23 1:17 PM EST documented as of this encounter Care Teams Gun Fitter Relationship Specialty Start Date End Date Milena Shoemaker MD [address] [place] [address] PCP - General Family Medicine 08/12/22 Maria G Sellers CNP Psychiatrist 02/23/23 documented as of this encounter
--- OUTSIDE RECORDS SUMMARY | 2024-08-07 18:01 | XMS_ITS | Encounter Summary ---
Author Organization [employer] Address 75 [facility] 7 [place] [address] Care Team Providers Care Electro Optics Engineer Name Role Phone Milena Shoemaker MD Primary Care Provider [phone] Reason for Referral * Consultation (STAT) - Closed Specialty Diagnoses / Procedures Referred By Contac t Referred To Contact Diagnoses Septic arthritis of lumbar spine ([facility]/HCC) Milena Shoemaker MD [address] [place] [address] Phone: tel: fax: Myla Garza MD [address] [place] [address] Phone: tel: fax: Referral ID Status Reason Start Date Expiration Date V isits Requested Visits Authorized [id number] Closed Specialty Services Required 09/13/2023 09/12/2024 1 1 Reason for Visit * Reason Onset Date Comments Call Back Request 09/12/2023 Encounter Details Date Type Department Care Team ([facility] st Contact Info) Description 09/12/2023 Telephone [facility] MEDICINE [address] [place] [address] Milena Shoemaker MD [address] [place], [place] [phone] Call Back Request Social History Tobacco Use Types Packs/Day Years Used Date Smoking Tobacco: Every Day Cigarettes Smokeless Tobacco: Never Alcohol Use Standard Drinks/Week Comments Never 0 (1 standard drink = 0.6 oz pur e alcohol) Depression Answer Date Recorded Patient Health Questionnaire-9 Score 7 07/15/2022 Housing Stability Answer Date Recorded What is your housing situation today? I have anselmo sing 08/11/[address] you li [...] encounter Miscellaneous Notes * Telephone Encounter - Milena Shoemaker MD - 09/13/2023 5:00 PM EDT I called Dr. Zimmerman, she informed me the patient has culture negative joint septic arthritis he is suppose to be on IV Vancomyin/cefepime but will not be able to follow hs cultures and vancomycin through given they are [place] of [place], they were requesting if we can assist with coordinating a referral with an ID specialist office to have someone following him up. I will place a STAT referral to ID, possibly Dr. Romano, I have send a message to provider to see if is possible that she can take him over, pending response. * Telephone Encounter - Wing Marcel RN - 09/13/2023 3:25 PM EDT Tc to Sanna, she stated that [facility] accepted him and [facility] will handle his IV antibiotics. There is no ID referral available as no one would take the pt as stated by Sanna. Sanna is the nurse acute care occupational therapist so is the de facto protective services social worker for the pt at the hospital. Phone number for Dr. Zimmerman is [phone]. If unable to get a hold of this provider, the other provider working with Dr. Zimmerman is Dr. Beltran, number [phone]. * Telephone Encounter - Milena Shoemaker MD - 09/13/2023 2:52 PM EDT Please request Sanna to provide Dr. Zimmerman phone, he also needs a VNA agency to be setup before he goes home. Please get the protective services social worker involved as this needs coordination of services more than just prescription, he will also need a f/up plan and an ID referral. * Telephone Encounter - Wing Marcel RN - 09/13/2023 2:15 PM EDT Tc to Sanna. She stated that that antibiotics are for lumbar facet septic arthritis. The course is for six weeks from 08/30 to 10/10. The meds will be taken at home and requires a doctor to follow. The antibiotics that will be prescribed are as follow: IV Cefepime, 2 grams, q8hrs IV Vancomyocin, 1,250 mg q8hrs Sanna states that Dr. Yareli Zimmerman who is the [place] is requesting to talk to PCP about IV antibiotic orders and pt history via phone call. Sanna will get number for Dr. Zimmerman. Stated I would message to ask PCP if she is willing and can find the time to talk with CT provider. States would call back when PCP makes decision. Sanna verbalizes understanding and agreement with plan. * Telephone Encounter - Milena Shoemaker MD - 09/13/2023 1:33 PM EDT You need to get more information, please talk with Sanna, get records of what antibiotics he has, duration, agency, access, etc. * Telephone Encounter - Joe Abernathy - 09/12/2023 2:34 PM EDT Tc from Sanna at the [facility] requesting a call back to get orders for the patient to continue at home IV antibiotics if not the patient would have stay in the hospital to finish the process please call Sanna at [phone] Ext. [phone] documented in this encounter Plan of Treatment Upcoming Encounters Date Type Department Care Team (Late st Contact Info) Description 09/05/2024 9:30 AM EDT Clinical Support [facility] MED & PEDS 505 [place] [address] Luma Dalton, RN [address] [place] [address] Scheduled Referrals Name Type Priority Associated Diagnoses Order Schedule Referral to Infectious Disease Outpatient Referral STAT Septic arthritis of lumbar spine (CMS/HCC) Expected: 09/13/2023 (Approximate), Expires: 09/12/2024 documented as of this encounter Visit Diagnoses Diagnosis Septic arthritis of lumbar spine (CMS/HCC)- Primary documented in this encounter Additional Health Concerns Assessment Noted Time PHQ-9 Depression Total Score: 7 07/15/19 23 1:17 PM EST documented as of this encounter Care Teams Electro Optics Engineer Relationship Specialty Start Date End Date Milena Shoemaker MD [address] [place] [address] PCP - General Family Medicine 08/12/22 Maria G Sellers CNP Psychiatrist 02/23/23 documented as of this encounter
--- OUTSIDE RECORDS SUMMARY | 2024-08-07 18:01 | XMS_ITS | Encounter Summary ---
Author Organization [employer] Address 75 [facility] 7t [place] [address] Care Team Providers Care Gasoline Pump Mechanic Name Role Phone Milena Shoemaker MD Primary Care Provider [phone] Encounter Details Date Type Department Care Team ([facility] st Contact Info) Description 12/23/2023 Orders Only [facility] CHC MED & PEDS [address] [place], [place] [phone] Johanna Camargo MD 505 [place] [address] Primary hypertension (Primary Dx) Social History Tobacco Use Types Packs/Day Years [...] Description 09/05/2024 9:30 AM EDT Clinical Support [facility] MED & PEDS 505 [place] [address] Luma Dalton, LUIS [address] [place] [address] documented as of this encounter Visit Diagnoses Diagnosis Primary hypertension- Primary Unspecified essential hypertension documented in this encounter Additional Health Concerns Assessment Noted Time PHQ-9 Depression Total Score: 7 07/15/19 23 1:17 PM EST documented as of this encounter Care Teams Gasoline Pump Mechanic Relationship Specialty Start Date End Date Milena Shoemaker MD [address] [place] [address] PCP - General Family Medicine 08/12/22 Maria G Sellers CNP Psychiatrist 02/23/23 documented as of this encounter
--- OUTSIDE RECORDS SUMMARY | 2024-08-07 18:01 | XMS_ITS | Encounter Summary ---
Author Organization [employer] Address 75 [facility] 7t [place] [address] Care Team Providers Care Chemical Pumper Name Role Phone Milena Shoemaker MD Primary Care Provider [phone] Reason for Visit * Reason Onset Date Comments Med Refill 03/01/2024 Encounter Details Date Type Department Care Team ([facility] st Contact Info) Description 03/01/2024 Telephone [facility] CHC MED & PEDS [address] [place] [address] Milena Shoemaker MD 505 [place] [address] Med Refill Social History Tobacco Use Types Packs/Day Years [...] encounter Miscellaneous Notes * Telephone Encounter - Kaitlin Peguero - 03/01/2024 10:11 AM EDT TC from pt requesting medication refill. Medications needing refill : baclofen (Lioresal) 10 MG tablet To be sent to: [facility] - [place], [place] - [address] [place] [address] documented in this encounter Plan of Treatment Upcoming Encounters Date Type Department Care Team (Late st Contact Info) Description 09/05/2024 9:30 AM EDT Clinical Support [facility] MED & PEDS [address] [place] [address] Luma Dalton, LUIS [address] [place] [address] documented as of this encounter Visit Diagnoses Not on filedocumented in this encounter Additional Health Concerns Assessment Noted Time PHQ-9 Depression Total Score: 7 07/15/19 23 1:17 PM EST documented as of this encounter Care Teams Chemical Pumper Relationship Specialty Start Date End Date Milena Shoemaker MD [address] [place] [address] PCP - General Family Medicine 08/12/22 Maria G Sellers CNP Psychiatrist 02/23/23 documented as of this encounter
--- OUTSIDE RECORDS SUMMARY | 2024-08-07 18:01 | XMS_ITS | Encounter Summary ---
Author Organization [employer] Address [address] [facility] [address] 7t [place] [address] Care Team Providers Care Kinesiologist Name Role Phone Milena Shoemaker MD Primary Care Provider [phone] Reason for Visit * Reason Comments Med Refill Encounter Details Date Type Department Care Team ([facility] st Contact Info) Description 12/10/2023 Refill [facility] CHC MED & PEDS [address] [place] [address] Milena Shoemaker MD 505 [place] [address] Social History Tobacco Use Types Packs/Day Years [...] Description 09/05/2024 9:30 AM EDT Clinical Support [facility] MED & PEDS 505 [place] [address] Luma Dalton, LUIS [address] [place] [address] documented as of this encounter Visit Diagnoses Not on filedocumented in this encounter Additional Health Concerns Assessment Noted Time PHQ-9 Depression Total Score: 7 07/15/19 23 1:17 PM EST documented as of this encounter Care Teams Kinesiologist Relationship Specialty Start Date End Date Milena Shoemaker MD [address] [place] [address] PCP - General Family Medicine 08/12/22 Maria G Sellers CNP Psychiatrist 02/23/23 documented as of this encounter
--- OUTSIDE RECORDS SUMMARY | 2024-08-07 18:01 | XMS_ITS | Encounter Summary ---
Author Organization [employer] Address [address] [facility] [address] 7t [place] [address] Care Team Providers Care Market Research Associate Name Role Phone Milena Shoemaker MD Primary Care Provider [phone] Reason for Visit * Reason Onset Date Comments Call Back Request 12/23/2023 Encounter Details Date Type Department Care Team ([facility] Contact Info) Description 12/23/2023 Telephone [facility] MEDICINE [address] [place] [address] Milena Shoemaker MD [address] [place], [place] [phone] Call Back Request Social History Tobacco Use [...] t he electric, gas, oil or water [employer] threatened to shut off services in your [...] encounter Miscellaneous Notes * Telephone Encounter - Wing Marcel RN - 12/23/2023 4:17 PM EDT Tc clint pot to relay new medication, unable to reach pt. Left message for pt to call back. * Telephone Encounter - Wing Marcel RN - 12/23/2023 2:14 PM EDT Please advise on hydralazine dosage for pt. Spoke to Dr. Camargo about increasing dosage due to uncontrolled BP but unknown what dosage of hydralazine pt is taking at the moment. Tc to pt, reports that he is taking hydralazine at 50 mg, one tablet TID. Stated that the dosage would likely be increased to 75 mg and not to curing pickling packer the 100 mg. Pt verbalized understanding and agreement with plan. * Telephone Encounter - Fatou Mcgrath - 12/23/2023 12:44 PM EDT Tc from pt requesting a call back in regards describe a medication pt have at home, advised from nurses to call back after visit. documented in this encounter Plan of Treatment Upcoming Encounters Date Type Department Care Team (Late st Contact Info) Description 09/05/2024 9:30 AM EDT Clinical Support [facility] MED & PEDS [address] [place] [address] Luma Dalton, RN [address] [place] [address] documented as of this encounter Visit Diagnoses Not on filedocumented in this encounter Additional Health Concerns Assessment Noted Time PHQ-9 Depression Total Score: 7 07/15/19 23 1:17 PM EST documented as of this encounter Care Teams Market Research Associate Relationship Specialty Start Date End Date Milena Shoemaker MD [address] [place] [address] PCP - General Family Medicine 08/12/22 Maria G Sellers CNP Psychiatrist 02/23/23 documented as of this encounter
--- OUTSIDE RECORDS SUMMARY | 2024-08-07 18:01 | XMS_ITS | Encounter Summary ---
Author Organization [employer] Address 75 [facility] 7t [place] [address] Care Team Providers Care Test Desk Operator Name Role Phone Milena Shoemaker MD Primary Care Provider [phone] Reason for Visit * Reason Comments Med Refill Encounter Details Date Type Department Care Team ([facility] st Contact Info) Description 08/30/2022 Refill [facility] CHC MED & PEDS [address] [place] [address] Milena Shoemaker MD [address] [place] [address] Chronic midline low back pain without sciatica [...] suspected to have Coronavirus/COVID-19? No / Unsure 08/27/2022 9:49 AM EDT documented as of this encounter Miscellaneous Notes * Telephone Encounter - Milena Shoemaker MD - 08/31/2022 4:50 PM EDT This is a not a [facility]p medication this is for short term, at this moment will refused this request * Telephone Encounter - Emily Mari RN - 08/30/2022 10:33 AM EDT T/C placed to pt, spoke with pt who is requesting refill for Tizanidine. Pt informed medication is already queued to PCP. RN also discussed with pt regarding his BP machine and compliance with his medication. Pt states he has been checking his BP but do not know how to read the numbers . RN reviewed with pt, advised pt to keep a log for his BP, s/sx to seek immediate medical attention and f/u sooner PRN. Pt also advised on low salt, low sodium diet. Pt verbalizes understanding and agrees to plan. documented in this encounter Plan of Treatment Upcoming Encounters Date Type Department Care Team (Late st Contact Info) Description 09/05/2024 9:30 AM EDT Clinical Support [facility] MED & PEDS [address] [place] [address] Luma Dalton, LUIS [address] [place] [address] documented as of this encounter Visit Diagnoses Diagnosis Chronic midline low back pain without sciatica documented in this encounter Additional Health Concerns Assessment Noted Time PHQ-9 Depression Total Score: 7 07/15/19 23 1:17 PM EST documented as of this encounter Care Teams Test Desk Operator Relationship Specialty Start Date End Date Milena Shoemaker MD [address] [place] [address] PCP - General Family Medicine 08/12/22 Maria G Sellers CNP Psychiatrist 02/23/23 documented as of this encounter
--- OUTSIDE RECORDS SUMMARY | 2024-08-07 18:01 | XMS_ITS | Clinical Summary ---
Author Organization [facility] Facility Address [address] [place] [address] Care Team Providers Care Nursing Specialist Name Role Phone Milena Shoemaker MD Primary Care Provider [phone] Social History Tobacco Use Types Packs/Day Years Used Date Smoking Tobacco: Never Assessed Sex and Gender Information Value Date Recorded Sex Assigned at Not on file Legal Sex Male 2:57 PM EDT Gender Identity Not on file Sexual Orientation Not on file Plan of Treatment Health Maintenance Due Date Last Done Comments Hepatitis B Vaccine (1 of 3 - 19+ 3-dose series) 11/22/1991 Colorectal Cancer Screening: Annual FOBT 2021 Colorectal Cancer Screening: Colonoscopy 2021 Colorectal Cancer Screening: Sigmoidoscopy 2021 Influenza Vaccine (#1) 2024 Pneumococcal Vaccine: Pediat rics (0 to 5 Years) and At-Risk Patients (6 to 64 Years) Aged Out No longer eligible b ased on patient's age to complete this topic Insurance MEDICARE MEDICAID [place] Care Teams Nursing Specialist Relationship Specialty Start Date End Date Milena Shoemaker MD [address] [place] [address] PCP - General Family Medicine 11/05/22
--- OUTSIDE RECORDS SUMMARY | 2024-08-07 18:01 | XMS_ITS | Encounter Summary ---
Author Organization [employer] Address [address] [place] [address] Care Team Providers Care Fisheries Specialist Name Role Phone Milena Shoemaker MD Primary Care Provider [phone] Reason for Visit * Reason Comments Med Refill Encounter Details Date Type Department Care Team ([facility] st Contact Info) Description 06/01/2023 Refill [facility] [address] [place], [place] [id number] Milena Shoemaker MD [address] [place] [address] Chronic midline low back pain without sciatica [...] housing situation today? I have anselmo chua 03/28/[address] you li ve. Do you have problems with any of the following? None of the above 03/28/2023 Food Insecurity Answer Date Recorded Within the past 12 months, y ou worried that your food would run out before you got money to buy more: Never True 03/28/2023 Within the past 12 months,th e food you bought just didn't last and you didn't have enough money to get more: Never True Transportation Answer Date Recorded In the past 12 months, has l ack of transportation kept you from medical appts, meetings, work or from getting things needed for daily living? No 03/28/2023 Utilities Answer Date Recorded In the past 12 months, has t he electric, gas, oil or water company threatened to shut off services in your home? No 03/28/2023 Depression Answer Date Recorded Patient Health Questionnaire-2 Score 1 07/15/2022 Sex and Gender Information Value Date Recorded Sex Assigned at Male 05/20/2022 2:16 PM EST Legal Sex Male 2:02 PM EST Gender Identity Male 05/20/2022 2:16 PM EST Sexual Orientation Straight 07/15/2022 12 :45 PM EST documented as of this encounter Miscellaneous Notes * Telephone Encounter - Luma Lares RN - 06/01/2023 2:41 PM EST TC to pt regarding message below from PCP. Pt verbalized understanding. documented in this encounter Plan of Treatment Upcoming Encounters Date Type Department Care Team ([facility] st Contact Info) Description 09/05/2024 9:30 AM EDT Clinical Support [facility] [address] [place] [address] Luma Dalton RN [address] [place] [address] documented as of this encounter Visit Diagnoses Diagnosis Chronic midline low back pain without sciatica documented in this encounter Additional Health Concerns Assessment Noted Time PHQ-9 Depression Total Score: 7 07/15/19 1:17 PM EST documented as of this encounter Care Teams Fisheries Specialist Relationship Specialty Start Date End Date Milena Shoemaker MD [address] [place] [address] PCP - General Family Medicine 08/12/22 Maria G Sellers CNP Psychiatrist 02/23/23 documented as of this encounter
--- OUTSIDE RECORDS SUMMARY | 2024-08-07 18:02 | XMS_ITS | Clinical Summary ---
Author Organization [address] [facility] Address [address] [place] [address] Phone Care Team Providers Care Distribution Center Associate Name Role Phone Milena Shoemaker MD Primary Care Provider [phone] Social History Tobacco Use Types Packs/Day Years Used Date Smoking Tobacco: Never Assessed Sex and Gender Information Value Date Recorded Sex Assigned at Not on file Legal Sex Male 9:19 AM EST Gender Identity Not on file Sexual Orientation Not on file Plan of Treatment Upcoming Encounters Date Type Department Care Team ([facility] Contact Info) Description 08/30/2024 9:00 AM EDT Office Visit Orthopedic Surgery - [place] [id number] [address] Carlos Alberto Alatorre, DPM [address] [address] Health Maintenance Due Date Last Done Comments DTaP,Tdap,and Td Vaccines (1 - Tdap) 11/22/1991 Hepatitis B Vaccines (1 of 3 - 19+ 3-dose series) 11/22/1991 Pneumococcal Vaccine: 50+ Ye ars (1 of 1 - PCV) 2022 Zoster Vaccines (1 of 2) 2022 COVID-19 Vaccine ( - 2023-2 5 season) 2024 Influenza Vaccine (#1) 2024 Cholesterol Screening (Lipid Panel) 05/02/2024 Colorectal Cancer Screening: Colonoscopy 05/02/2024 Depression Screening 05/02/2024 HIV Screening 05/02/2024 Hepatitis C Screening 05/02/2024 Medicare Annual Wellness Visit 05/02/2024 Social Influencers of Health Screening 05/02/2024 HIB Vaccines Aged Out No longer eligi ble based on patient's age to complete this topic HPV Vaccines Aged Out No longer eligi ble based on patient's age to complete this topic Hepatitis A Vaccines Aged Out No long er eligible based on patient's age to complete this topic IPV Vaccines Aged Out No longer eligi ble based on patient's age to complete this topic MMR Vaccines Aged Out No longer eligi ble based on patient's age to complete this topic Meningococcal ACWY Vaccine Aged Out N o longer eligible based on patient's age to complete this topic Meningococcal B Vacine Aged Out No lo nger eligible based on patient's age to complete this topic Pneumococcal Vaccine: Pediat rics (0 to 5 Years) and At-Risk Patients (6 to 64 Years) Aged Out No longer eligible b ased on patient's age to complete this topic RSV Immunization Patients Un flo 20 months Aged Out No longer eligible b ased on patient's age to complete this topic Varicella Vaccines Aged Out No longer eligible based on patient's age to complete this topic Insurance MEDICARE MEDICAID - [place] Care Teams Distribution Center Associate Relationship Specialty Start Date End Date Milena Shoemaker MD [address] [place] [id number] PCP - General Family Medicine 05/02/24
--- OUTSIDE RECORDS SUMMARY | 2024-08-07 18:02 | XMS_ITS | Clinical Summary ---
Author Organization [employer] Address [address] [place] [address] 7 [place] [address] Care Team Providers Care Client Service Coordinator Name Role Phone Milena Shoemaker MD Primary Care Provider [phone] Allergies Active Allergy Reactions Criticality Noted Date Comments Coconut Fatty Acid Hives Low 07/15/2022 Cyclobenzaprine Hives Low 07/15/2022 Other reaction(s): Almonds, swelling, Tongue swelling Lisinopril Cough Low 07/15/2022 Meloxicam Other Low 07/15/2022 Other reaction(s): Tongue swelling Naproxen Cough Low 07/15/2022 Other reaction(s): stomach pain Quetiapine Unknown 08/11/2023 Shellfish Allergy Hives Low 07/15/2022 Other reaction(s): Swelling of throat Tramadol Hives Low 07/15/2022 Other reaction(s): tongue swelling, hives, respiratory distress Ziprasidone Other Low 07/15/2022 Other reaction(s): muscle spasms Medications Blood Pressure Monitoring (Adult Blood Pressure Cuff Lg) kitIndications:P rimary hypertension 1 Units 2 times daily. 1 kit 023 Active cetirizine (ZyrTEC) 10 MG tabletIndication s:Seasonal allergies Take 1 tablet (10 mg) by mouth in the morning. 90 tablet 023 Active spironolactone (Aldactone) 25 MG tabletIndication s:Primary hypertension TAKE ONE TABLET EVERY MORNING 90 tablet 1 023 Active EPINEPHrine (Epipen) 0.3 MG/0.3ML injection syringeIndicatio ns:Anaphylaxis, sequela INJECT INTRAMUSCULARLY DIRECTED ON PACKAGE 4 each 024 Active insulin aspart, with niacinamide, (Fiasp FlexTouch) 100 UNIT/ML injection Use with acmeals following ISS 9 mL Active mupirocin (Bactroban) 2 % ointment Apply topically 2 times daily. Active ondansetron (Zofran) 4 MG tablet Take 1 tablet (4 mg) by mouth every 8 (eight) hours if needed for nausea or vomiting. 20 tablet Active gabapentin (Neurontin) 800 MG tabletIndication s:Diabetic polyneuropathy associated with type 2 diabetes mellitus (CMS/HCC) TAKE ONE TABLET THREE TIMES DAILY 90 tablet Active fluticasone (Flonase) 50 MCG/ACT nasal sprayIndications :Seasonal allergies USE ONE SPRAY IN EACH NOSTRIL TWICE DAILY 16 g Active atorvastatin (Lipitor) 80 MG tabletIndication s:Hyperlipidemia , unspecified hyperlipidemia type TAKE ONE TABLET AT BEDTIME 90 tablet Active Blood Glucose Monitoring Suppl ([employer] Lite) w/Device kit Use to test blood sugar QID times daily 1 kit Active Alcohol Swabs 70 % pads Use to test blood sugar QID times daily 100 each Active Lancets misc Use to test blood sugar QID times daily 100 each Active dulaglutide (Trulicity) 3 MG/0.5ML solution pen-injectorIndi cations:Type 2 diabetes mellitus with hyperglycemia, with long-term current use of insulin ([facility]) Inject 3 mg under the skin 1 (one) time per week. 4 each Active hydrALAZINE (Apresoline) 100 MG tablet Take 1 tablet (100 mg) by mouth 3 times daily. 90 tablet 2024 Active insulin pen needle (NovoFine Autocover Pen Needle) 30G X 8 mm misc USE UP TO FOUR daily 200 each Active Jardiance 25 MGIndications:Ty pe 2 diabetes mellitus with hyperglycemia, with long-term current use of insulin ([facility]) TAKE ONE TABLET EVERY MORNING 90 tablet Active losartan (Cozaar) 100 MG tabletIndication s:Essential (primary) hypertension TAKE ONE TABLET EVERY MORNING 90 tablet 1 Active chlorthalidone (Hygroton) 50 MG tablet TAKE ONE TABLET EVERY MORNING 90 tablet 1 Active acetaminophen (Tylenol 8 Hour) 650 MG ER tablet TAKE ONE TABLET BY MOUTH EVERY EIGHT HOURS NEEDED FOR PAIN 90 tablet 2 Active labetalol (Normodyne) 300 MG tablet Take 1 tablet (300 mg) by mouth 2 times daily. 60 tablet 11 2024 Active insulin glargine (Basaglar KwikPen) 100 UNIT/ML penIndications:T ype 2 diabetes mellitus with hyperglycemia, with long-term current use of insulin ([facility]) INJECT 60 UNITS SUBCUTANEOUSLY DAILY AT BEDTIME 15 mL 5 Active Continuous Glucose Sensor (FreeStyle Cata 2 Sensor) miscIndications: Type 2 diabetes mellitus with hyperglycemia, with long-term current use of insulin ([facility]),Diabet ic ulcer of toe of right foot associated with diabetes mellitus due to underlying condition, with fat layer exposed ([facility]) Inject 2 Units into the skin every 14 (fourteen) days. 2 each 2024 Active Continuous Glucose Color Maker Dyer (FreeStyle Cata 2 [place]) deviceIndication s:Type 2 diabetes mellitus with hyperglycemia, with long-term current use of insulin ([facility]),Diabet ic ulcer of toe of right foot associated with diabetes mellitus due to underlying condition, with fat layer exposed ([facility]) Use to monitor interstitial glucose 8 times a day and as needed 1 each Active glucose blood (FreeStyle Precision Alexander Test) test strip 1 each by Other route 3 times daily. TID due to medicare coverage 100 each Active FreeStyle lancetsIndicatio ns:Type 2 diabetes mellitus with hyperglycemia, with long-term current use of insulin ([facility]) 1 each by Other route 3 times daily. Test QID and prn 100 each Active clotrimazole-bet amethasone (Lotrisone) cream APPLY TO THE AFFECTED AREA(S) TWICE DAILY FOR 28 DAYS 45 g 1 Active baclofen (Lioresal) 10 MG tabletIndication s:Chronic midline low back pain without sciatica Take 1 tablet (10 mg) by mouth 3 times daily. 90 tablet 2 025 Active albuterol (Ventolin HFA) 108 (90 Base) MCG/ACT inhalerIndicatio ns:Asthma, unspecified asthma severity, unspecified whether complicated, unspecified whether persistent INHALE TWO PUFFS EVERY 4 HOURS NEEDED 18 g 5 025 Active magnesium oxide (Mag-Ox) 400 MG tabletIndication s:Cramp and spasm TAKE ONE TABLET BY MOUTH EVERY MORNING 90 tablet 1 025 Active tamsulosin (Flomax) 0.4 MG 24 hr capsule TAKE ONE CAPSULE BY MOUTH EVERY MORNING 90 capsule 1 025 Active oxyCODONE (Roxicodone) 5 MG immediate release tabletIndication s:Chronic midline low back pain without sciatica Take 1 tablet (5 mg) by mouth every 6 (six) hours if needed for severe pain. 112 tablet 025 Active oxyCODONE (Roxicodone) 5 MG immediate release tabletIndication s:Chronic midline low back pain without sciatica Take 1 tablet (5 mg) by mouth every 6 (six) hours if needed for severe pain. 112 tablet 025 2024 Discontinued( Reorder (will not trigger notification to Pharmacy)) Active Problems Problem Noted Date Diagnosed Date Ulcer of great toe 10/21/2023 Assessment & Plan (05/17/2024 2:28 PM EST): R toe diabetic foot ulcer, patient self debrided callus formation. Will continue with wound care, no signs of infection. Wound care with moist Xeroform, needs change q3 days. Pending appointment to wound care for management. Needs wound care center where he can get sharp scalpel debridement. He also needs off loading, will send forefoot off load shoe. Epidural abscess, L2-L5 10/21/2023 Crush injury of left foot 10/21/2023 Assessment & Plan (10/22/2023 12:34 AM EDT): Pt slipped and fell while in the shower and says he fractured his toe. - An XR Foot 3+ Views Left was ordered for confirmation. Cellulitis of great toe, left 10/21/2023 Left foot pain 10/21/2023 Assessment & Plan (01/23/2024 11:32 AM EDT): Ordering XR of Left Foot for further evaluation. Advised to use compression socks to help with swelling of the foot. 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 Hold off PSA. Send urine given + blood. Reports this is a chronic finding around 5 yrs ago he had kidney stones. Will provide trial of flomax to help with symptoms Chronic midline low back pain without sciatica 0 08/12/2022 Assessment & Plan (01/23/2024 11:32 AM EDT): Prescribing Oxycodone for Sx. Assessment & Plan (08/11/2023 11:21 AM EST): Patient still presents visit with chronic lumbar lower back pain with radicular symptoms. Refilled Baclofen. Has gone to Pain Management. I have ordered an MRI of Lumbar Spine. Once the results come back I will decide treatment options. Assessment & Plan (05/09/2023 10:49 AM EST): Patient still presents visit with chronic midline lower back pain, in which admits not seeing improvements with pain medications given on prior office visit. Therefore, patient will have a change of medications: Baclofen and Oxycodone. Recommended to notify office if symptoms don't improve with medications given at the time of visit. Pain Management was recommended and offered. Assessment & Plan (05/03/2023 1:50 PM EST): Unclear why this appt was made via telemedicine instead of inperson. Denies any red flags, exacerbation of symptoms. He is following with COT. Will provide higher dose of diclofenac and f/up next Tuesday inperson Assessment & Plan (03/02/2023 3:51 PM EDT): Reviewed with patient use of different modalities for chronic back pain, he reports multiple med allergies, and diclofenac not helpful, at this point he had trial of oxycodone which didn't completely remove pain but did help with helping do his ADLs and function. Hold off changes, aware of COT program. Will continue monitoring to assess the 5A's. Assessment & Plan (03/03/2023 9:02 AM EDT): Patient with various medication allergies, will provide a trial of opiates and will f/up, pend pain medicine appt. Assessment & Plan (11/22/2022 10:30 AM EDT): Patient with continued midline low back pain. Will start on 4 mg tizanidine. Assessment & Plan (08/12/2022 7:25 PM EST): Severe back pain reported multiple med side effects/intolerances. Will rx muscle relaxer and short trial of percocet. Reports multiple intolerances to NSAIDs and severely uncontrolled HTN. At this point will proceed with referral to pain management, will scheduled f/up in 3-4 weeks and will need to address this issue and re-attempt physical examination Asthma 07/15/2022 Cervical radiculopathy 07/15/2022 Chronic abdominal pain 07/15/2022 Depressive disorder 07/15/2022 Diabetes mellitus 07/15/2022 Assessment & Plan (05/17/2024 2:30 PM EST): Uncontrolled. Pending CGM. No readings from home brought in. This patient has diabetes and uses insulin as part of his diabetes treatment plan. For his safety, I have advised this patient to check their blood glucose level at least four times daily, including before meals, before bed, periodically after meals, if he believes he might be experiencing hypoglycemia, or if he is ill. I have therefore recommended continuous glucose monitoring as part of his comprehensive diabetes treatment plan, in order to help him lower his HbA1c to target and/or maintain his HbA1c at target, to alert him to and to detect hypoglycemia, and/or to reduce hypoglycemia. Being able to use a continuous glucose monitoring system will therefore help increase their short term and long-term safety. This is consistent with the [place] [employer]? s Standards of Medical Care in Diabetes--2023 (https://diabetesjournals.org/care/article/47/Supplement_1/S126/639066/7-Diabete s-Daysi xtrdrvn-Kvdqhtxen-rk-Care-in) Assessment & Plan (04/23/2024 1:51 AM EST): Uncontrolled. A1c: 8.5. POCT Glucose: 124 . Pt didn't bring sugar readings. Pt was instructed to bring his sugar readings to next visit. Recommended to keep monitoring glucose levels at home and continue medication regimen. Pt was also advised to schedule an appt if he gets a wound especially on his feet as he is a diabetic and his wound can quickly get worse if no proper action is taken in time. Assessment & Plan (08/11/2023 11:15 AM EST): Uncontrolled: Patient will have Trulicity increased. Continue same medication regimen with the only change in Trulicity dosage. Recommended to keep monitoring glucose levels at home. Labs: Glucose, HGB A1C Assessment & Plan (06/09/2023 3:06 PM EST): Controlled: A1C levels are within normal limits. Patient will not have any changes or increases at this time, however, was advised to send numbers through patient portal. Recommended to keep monitoring glucose levels at home. Assessment & Plan (03/03/2023 9:01 AM EDT): Lab Results Component Value Date HGBA1C 8.7 (A) 02/18/2023 Uncontrolled but improved. Need to continue titrating medication, target fasting 80-130 mg/dL and < 180 mg/dL postprandial. Assessment & Plan (11/22/2022 10:29 AM EDT): Slightly improved. Will increase Trulicity to 3 mg/ 0.5 mL Assessment & Plan (10/22/2022 10:54 AM EDT): Close to controlled. Continue current regimen. Assessment & Plan (10/06/2022 1:09 PM EDT): Uncontrol. Will incr trulicity and lower insulin to avoid hypoglycemia. Assessment & Plan (10/06/2022 9:30 AM EDT): Reviewed cGM in the last week he has had 4 episodes of hypoglycemia, 1 since decrease of insulin, will further decr insulin to 60 U subcutaneous, target fasting 80- 130 mg/dL and target postprandial < 180 mg/dL. TAR 16%, TIR 81% & TBR 3%. Will f/up in 2 weeks Assessment & Plan (08/12/2022 7:28 PM EST): Uncontrolled. Patient didn't bring log as requested. At this point will add GLP- 1 agonist to regimen and start patient on continuous glucose management (pt w/ uncontrolled diabetes, POC a1c 9.2%, insulin QID (basal/bolus) & episodes of hypoglycemia). Will f/up within 4 weeks. Assessment & Plan (07/15/2022 5:09 PM EST): POC a1c 9.5%, uncontrolled. At this moment recommended monitoring, taking medication and will need to adjust regimen as he is more compliant with the current regimen he is using. Also strongly encouraged to bring his medical records. Hyperlipidemia 07/15/2022 Hypertension 07/15/2022 Assessment & Plan (05/17/2024 2:31 PM EST): Very poorly controlled on multiple medications, at this moment he should be seen by nephrology to r/o secondary causes due to resistant hypertension Assessment & Plan (01/23/2024 11:28 AM EDT): BP is controlled and continually improving. Continue on Coreg 6.25 mg. Increasing Hydralazine to 100 mg. Relevant Medications Carvedilol (Coreg) 6.25 mg tablet Hydralazine (Apresoline) 100 mg tablet Assessment & Plan (08/11/2023 11:17 AM EST): Controlled: BP within normal limits. Advised to keep monitoring at home, and bring reading upon next office visit. Continue same treatment regimen. Assessment & Plan (06/09/2023 3:05 PM EST): Uncontrolled: was noticed that patient's blood pressure was elevated upon visit with readings of 170/88 mmHg. Therefore, patient will have an increase of medications: 50mg. Advised to keep monitoring at home, and bring readings upon next office visit. Assessment & Plan (05/09/2023 10:46 AM EST): Uncontrolled: patient presented visit with an elevated blood pressure with readings of 186/98 mmHg. Recommended to monitor blood pressure at home, and bring readings upon next office visit. Patient had blood pressure retaken at the time of visit with readings of 150/92 mmHg. Assessment & Plan (03/03/2023 9:00 AM EDT): Significantly elevated in the setting of severe pain and poorly controlled HTN. Recommend adherence, pain treated and f/up in 1 wk Assessment & Plan (10/22/2022 10:53 AM EDT): Patient with continued elevated blood pressure readings. Will add carvedilol to regimen. Assessment & Plan (10/06/2022 1:09 PM EDT): Uncontrolled, will add hydralazine 10 mg TID and f/up Assessment & Plan (10/06/2022 9:33 AM EDT): Uncontrolled but improved, increase hydralazine from 10 mg to 25 mg TID. Already referred to nephrology in previous appt Assessment & Plan (08/12/2022 7:30 PM EST): Uncontrolled HTN, will switch losartan-hydrochlorothiazide, to losartan to chlorothiadone. Target BP < 130/80 mmHg, patient already with diffuse edema hence will hold off sending amlodipine. If continued uncontrolled consider adding spirolactone to regimen Assessment & Plan (07/15/2022 5:07 PM EST): Uncontrolled, target < 130/80 mmHg, reports compliance with medications and that he thinks is related to being nervious. Did send rx for his medications and BP monitor. Will f/u in 1 month IBS (irritable bowel syndrome) 07/15/2022 Obstructive sleep apnea syndrome 07/15/2022 Osteoarthritis 07/15/2022 Overview (07/15/2022): History of spinal surgeries Proteinuria 07/15/2022 Smoker 07/15/2022 Chronic left shoulder pain 07/15/2022 Assessment & Plan (07/15/2022 5:08 PM EST): Reports symptoms started more then 1 yr ago, tenderness on palpation of shoulder landmarks and inability to abduction above 30 degrees, concern of tear of tendon. At this moment will start with X ray and referral to orthopedics. Seasonal allergies 07/15/2022 Assessment & Plan (07/15/2022 5:11 PM EST): Patient with seasonal allergies and reports anaphylatic reaction to various medications, reports that his seasonal allergies are not improving with any conservative measures, at this moment will be prudent to refer patient to supervisor insulation. Edema 07/15/2022 Assessment & Plan (07/15/2022 5:13 PM EST): Vague compliant, reports diffuse body edema that he feels worse in his neck, he does not have any pitting or asymmetry but given his multiple risk factors and also complaints of NARVAEZ and some edema in his lower extremity seems prudent to w/u, also given symptoms to send for echo. Will f/u with results Resolved Problems Problem Noted Date Diagnosed Date Resolved Date Skin ulcer of toe of right f oot with fat layer exposed 05/17/2024 05/17/2024 Type 2 diabetes mellitus, wi th long-term current use of insulin 08/30/2023 05/17/2024 Assessment & Plan (01/23/2024 11:31 AM EDT): A1c is improving but not at goal, 9.1%. Time in range is 36%, discussed range goal. Increasing Trulicity to 3 mg. Check glucose 4x daily. Relevant Medications Alcohol swabs 70% pads Blood Glucose Monitoring Suppl (Freestyle [place] Lite) w/Device Kit Freestyle Lite test strip Lancets [facility] Assessment & Plan (10/21/2023 9:34 AM EDT): Patient on cGM TIR 71%, TAR 28% and TBR 1%, only 1 episode of hypglycemia in the setting of poor appetite. Diabetic ulcer of toe of lef t foot associated with diabetes mellitus due to underlying condition, limited to breakdown of skin 08/12/2022 05/17/2024 Assessment & Plan (08/12/2022 7:31 PM EST): Patient with left toe with diabetic ulcer, no signs of active infection, needs better glucose control. Will send to wound care and also to podiatry. Will f/u in 3-4 weeks. Class 2 obesity 07/15/2022 07/15/2022 Morbid obesity 07/15/2022 11/22/2022 Renal mass 07/15/2022 07/15/2022 Encounters Date Type Department Care Team Description 07/13/2024 Refill [facility] [address] [place] [address] Milena Shoemaker MD Chronic midline low back pain without sciatica 07/03/2024 Refill [facility] [address] [place] [address] Milena Shoemaker MD Cramp and spasm 06/28/2024 Refill [facility] [address] [place] [address] Milena Shoemaker MD Asthma, unspecified asthma severity, unspecified whether complicated, unspecified whether persistent 06/25/2024 Orders Only GENERIC EXTERNAL DATA DEPARTMENT Provider, Generic External Data 06/15/2024 Refill [facility] [address] [place] [address] Milena Shoemaker MD Chronic midline low back pain without sciatica 06/15/2024 Refill [facility] [address] [place] [address] Eri Leo MD Chronic midline low back pain without sciatica 06/15/2024 Telephone Counts Include [facility] Information Management [address] [place] [address] [id number] Milena Shoemaker MD 06/14/2024 10:00 AM EST Clinical Support [facility] [address] [place] [address] Luma Dalton, supervisor screen making midline low back pain without sciatica 06/14/2024 Refill [facility] [address] [place] [address] Luma Dalton RN Chronic midline low back pain without sciatica 06/14/2024 Travel 06/08/2024 Refill [facility] [address] [place] [address] Milena Shoemaker MD 05/18/2024 Telephone [facility] [address] [place] [address] Milena Shoemaker MD Durable Medical Equipment (Dme for forefoot off loading shoes waiting on provider signature ) 05/18/2024 Telephone [facility] [address] [place] [address] Milena Shoemaker MD 05/14/2024 10:45 AM EST Clinical Support [facility] [address] [place] [address] Boo Cordova, LUIS Open wound of toe of right foot; Type 2 diabetes mellitus with hyperglycemia, with long-term current use of insulin ([facility]) 05/14/2024 Travel 05/07/2024 Travel from Last 3 Months Immunizations Name Administration Dates Next Due Hep B, adult 08/13/2021,01/06/2018,11/06/2015 Influenza Whole 02/13/2009 Influenza, IIV3, injectable 03/09/2012, 6 Pneumococcal Polysaccharide PPSV23 05/31/2006 TD (adult), 2 Lf tetanus tox oid, preservative free, adsorbed 08/13/2021 Td (adult), unspecified 08/13/2021,05/31/2006 Tdap 12/14/2010 Social History Tobacco Use Types Packs/Day Years Used Date Smoking Tobacco: Every Day Cigarettes Passive Smoke Exposure: Past Smokeless Tobacco: Never Tobacco Cessation:Ready to Q uit: Not Asked; Counseling Given: Not Answered Alcohol Use Standard Drinks/Week Comments Never 0 [...] Orientation Straight 07/15/2022 12 :45 PM EST Last Filed Vital Signs Vital Sign Reading Time Taken Comments Blood Pressure 188/98 05/04/2024 1:48 PM EST Pulse 72 05/04/2024 1:48 PM EST Temperature 36.6 ??C (97.8 ??F) 05/04/2024 1:48 PM ES T Respiratory Rate 14 05/04/2024 1:48 PM EST Oxygen Saturation 98% 05/04/2024 1:48 PM EST Inhaled Oxygen Concentration - - Weight 118 kg (261 lb) 05/04/2024 1:48 PM EST Height 172.7 cm (5' 8 ) 05/04/2024 1:48 PM EST Body Mass Index 39.68 05/04/2024 1:48 PM EST Plan of Treatment Upcoming Encounters Date Type Department Care Team (Late st Contact Info) Description 09/05/2024 9:30 AM EDT Clinical Support [facility] [address] [place] [address] Luma Dalton, RN [address] [place] [address] Health Maintenance Due Date Last Done Comments CT Colonography 1972 Colonoscopy 1972 Colorectal Cancer Screening 1972 Dental Prophylaxis 1972 FIT DNA/Cologuard 1972 FIT 1972 FOBT 1972 HIV Screening 1972 Sigmoidoscopy 1972 Eye Exam 1982 Alcohol/Substance Use Screening 1984 Family Planning (PISQ) 11/22/1987 Hepatitis C Screening 1990 Pneumococcal Vaccine: 50+ Years (2 of 2 - PCV) 05/31/2007 05/31/2006 Zoster Vaccines (1 of 2) 2022 Dental Oral Exam 05/15/2023 11/12/2022 Depression Screening 07/15/2023 07/15/2022, 07/15/19 23 Lipid Panel 07/16/2023 07/16/2022 Diabetes: Foot Exam 08/13/2023 08/12/2022, 08/12/2022, 08/12/2022, Additional history exists Dental X-Ray: Bitewings 11/14/2023 11/12/2022, 10/01 Diabetes: Hemoglobin A1C 07/21/202404/20/2 024, 01/23/2024, 10/21/2023, Additional history exists SDOH Screening 08/10/2024 08/11/2023 Influenza Vaccine (#1) 2024 2, 02/13/2009, 05/31/2006 Postponed from 02/12/2024 (Patient Refused) COVID-19 Vaccine (2 season) 2025 08/13/2021 Postponed from 02/12/2024 (Patient Refused) Tobacco Screening 05/04/2025 05/04/2024 Diabetes: Urine Protein Screening 06/25/2025 06/25/2024 Dental X-Ray: Full Mouth 11/13/2025 11/12/2022 DTaP/Tdap/Td Vaccines (4 - Td or Tdap) 08/14/2031 08/13/2021, 08/13/2021, 12/14/2010, Additional history exists RSV Patients and Patients Aged 60 years or older (1 - 1-dose 75+ series) 11/22/2047 Hepatitis B Vaccines Completed 08/13/2021, 01/06/2018, 11/06/2015 HIB Vaccines Aged Out No longer eligi [...] patient's age to complete this topic Meningococcal Vaccine Aged Out No rc jose eligible based on patient's age to complete this topic RSV under 20 months Aged Out No longe r eligible based on patient's age to complete this topic Rotavirus Vaccines Aged Out No longer eligible based on patient's age to complete this topic Procedures Procedure Name Priority Date/Time Associated Diagnosis Comments COMPREHENSIVE METABOLIC PANEL Routine 06/25/2024 3:11 PM EST CBC Routine 06/25/2024 3:11 PM EST URINE PROTEIN, TOTAL, RANDOM (W/O CREATININE) Routine 06/25/2024 3:06 PM EST CREATININE, RANDOM URINE Routine 06/25/2024 3:06 PM EST URINALYSIS, COMPLETE Routine 06/25/2024 3:06 PM EST POCT REMI-14 URINE DRUG SCREEN Routine 06/14/2024 8:47 AM EST Chronic midline low back pain without sciatica WOUND CARE Routine 05/14/2024 11:44 AM EST Open wound of toe of right foot POCT GLYCATED HEMOGLOBIN, TOTAL Routine 04/20/2024 1:24 PM EST Type 2 diabetes mellitus with hyperglycemia, with long-term current use of insulin ([facility]/HCC) INTRAORAL - COMPLETE SERIES OF RADIOGRAPHIC IMAGES Routine 11/12/2022 9:00 AM EDT COMPREHENSIVE ORAL EVALUATION - NEW OR ESTABLISHED PATIENT Routine 11/12/2022 9:00 AM EDT LIPID PANEL, STANDARD Routine 07/16/2022 10:33 AM EST Morbid obesity ([facility]/HCC) from Last 3 Months or Most Recently Relevant to Health Maintenance Results * CBC (06/25/2024 3:11 PM EST) White Blood Count 10.4 4.8 - 10.8 X10*3/uL [facility] Red Blood Count 5.14 4.60 - 5.80 X10*6/uL [facility] Hemoglobin 14.3 14.0 - 18.0 g/dl [facility] Hematocrit 43.4 42.0 - 52.0 % [facility] Mean Corpuscular Volume 84.4 80.0 - 98.0 fL [facility] Mean Corpuscular Hemoglobin 27.8 27.0 - 33.0 pg [facility] Mean Corpuscular HGB Conc 32.9 31.0 - 36.0 g/dl [facility] Red Cell Distribution Width 13.7 11.0 - 16.0 % [facility] Platelet Count 318 160 - 400 X10*3/uL [facility] Mean Platelet Volume 9.4 9.4 - 12.4 fL [facility] NRBC Pct Auto 0.0 0.0 - 0.2 /100WBC [facility] NRBC Abs Auto 0.000 0.0 - 0.012 X10*3/uL [facility] 06/25/2024 3:11 PM EST 06/25/2024 3:11 PM EST us Generic External Data Provider LAB BLOOD ORDERAB LES Final Result [facility] [address] [place] [phone] * (ABNORMAL) Comprehensive Metabolic Panel (06/25/2024 3:11 PM EST) Sodium 139 135 - 145 mmol/L [facility] Potassium 4.3 3.3 - 5.1 mmol/L [facility] Comment:Slight Hemolysis.Int erpret result with caution. Chloride 108 96 - 108 mmol/L [facility] Carbon Dioxide 24 22 - 29 mmol/L [facility] Anion Gap 11(L) 12 - 20 [facility] Urea Nitrogen (BUN) 16 9 - 16 mg/dL [facility] Creatinine, Serum 0.82 0.5 - 1.4 mg/dL [facility] Estimated Glomerular Filt Rate >60 [facility] Comment:Chronic Kidney Disea se: Estimated GFR < 60 mL/min/1.09c5Hedoij Kidney Disease: Estimated GFR < 15 mL/min/1.73m2 Glucose 153(H) 60 - 115 mg/dL [facility] Calcium 9.0 8.4 - 10.2 mg/dL [facility] Bilirubin, Total 0.6 0.0 - 1.0 mg/dL [facility] Aspartate Amino Transferase 28 5 - 37 U/L [facility] Comment:Slight Hemolysis.Int erpret result with caution. Alanine Aminotransferase 18 0 - 40 U/L [facility] Total Protein 7.1 6.5 - 8.0 g/dL [facility] Albumin Level 3.3(L) 3.5 - 5.0 g/dL [facility] Alkaline Phosphatase 114 39 - 117 U/L [facility] 06/25/2024 3:11 PM EST 06/25/2024 3:11 PM EST us Generic External Data Provider LAB BLOOD ORDERAB LES Final Result Performing Organization Address [facility] Co de Phone Number [facility] [address] [place] [phone] * (ABNORMAL) Urine Protein, Total, Random without Creatinine (06/25/2024 3:06 PM EST) Protein, Total, Random Urine 640(H) <12 mg/dL [facility] Comment:Verified by dilution 06/25/2024 3:06 PM EST 06/25/2024 3:41 PM EST Generic External Data Provider LAB URINE ORDERAB LES Final Result Performing Organization Address [facility] Co de Phone Number [facility] [address] [place] [phone] * Creatinine, Random Urine (06/25/2024 3:06 PM EST) Creatinine, Urine 78.85 mg/dL [facility] 06/25/2024 3:06 PM EST 06/25/2024 3:41 PM EST Generic External Data Provider LAB URINE ORDERAB LES Final Result Performing Organization Address [facility] Co de Phone Number [facility] [address] [place] [phone] * (ABNORMAL) Urinalysis Complete (06/25/2024 3:06 PM EST) Color Urine Yellow [facility] Appearance Urine Clear [facility] PH 6.5 5.0 - 9.0 [facility] Glucose Urine UA 100(A) Negative mg/dL [facility] Urine Blood Moderate (2+)(A) Negative [facility] Specific [place] - Urine 1.020 1.005 - 1.025 [facility] Urine Protein >=1000 (4+)(A) Neg-Trace mg/dL [facility] Urine Ketones Negative Negative mg/dL [facility] Nitrite Urine Negative Negative [facility] Leukocyte Esterase Urine Negative Negative [facility] RBC Urine >20(A) 0 - 2 /HPF [facility] Urine WBC 0-5 0 - 5 /HPF [facility] Urine Squamous Epithelial Cell 0-2 0 - 2 /HPF [facility] Urine Bacteria None Seen None Seen [facility] Hyaline Casts, Urine 0-2 0 - 2 /LPF [facility] 06/25/2024 3:06 PM EST 06/25/2024 3:41 PM EST us Generic External Data Provider LAB URINE ORDERAB LES Final Result Performing Organization Address City/State/[facility] Co de Phone Number [facility] [address] [place] [phone] * POCT REMI-14 Urine Drug Screen (06/14/2024 8:47 AM EST) THC Positive Oxycodone Screen, Urine Positive Urine Urine specimen obtained by clean catch procedure / Unknown 06/14/2024 8:47 AM EST Narrative Luma Dalton RN - 06/14/2024 8:47 AM EST Lot# [id number] Exp: 05-19-25 us Milena Shoemaker MD POINT OF CARE TEST ENTER/EDIT ORDERABLES Final Result * Wound Care (05/14/2024 11:44 AM EST) Narrative Boo Cordova RN - 05/14/2024 11:44 AM EST Boo Cordova RN ? 05/14/2024 12:01 PM Wound Care Date/Time: 05/14/2024 11:44 AM Performed by: Boo Cordova RN Authorized by: Milena Shoemaker MD ?? Consent: ??Consent obtained: ??Verbal ??Consent given by: ??Patient Procedure details: ??Wound location: ??Toe ??Toe location: ??R big toe Dressing: ??Dressing applied: ??2x2 ??Wrapped with: ??Coban 1 inch Post-procedure details: ??Procedure completion: ??Tolerated Comments: ?? S: 53 yr old male presenting for right big toe posterior wound check. Pt denies any erythema, swelling, pain or drainage from wound. Pt report changing dressing BID and applying prescribed ointment. O: Wound is 1.1 cm x 1 cm. PCP assessed the wound. RN cleansed wound with NS, applied sterile 2x2 gauze and covered with coban adhesive wrap. A: ??Open wound on right big toe. P: Pt to continue with dressing changes. Pt agreed to contact wound clinic today to schedule an appointment, advised if any issues to let us know. Pt verbalized understanding and agreed to plan. Milena Shoemaker MD IN CLINIC/BEDSIDE ORDERABLES Final Result * (ABNORMAL) POCT HGB A1C (04/20/2024 1:24 PM EST) Pathologist [facility] Hemoglobin A1C 8.5(A) 4.0 - 6.0 % QC Media Lot # [id number] Lot# Expiration Date [id number] Blood 04/20/2024 1:24 PM EST Milena Shoemaker MD POINT OF CARE TEST ENTER/EDIT ORDERABLES Final Result * Lipid Panel, Standard (07/16/2022 10:33 AM EST) Cholesterol, Total 115 <200 mg/dL [facility] HDL Cholesterol 42 > OR = 40 mg/dL [facility] Triglycerides 106 <150 mg/dL [facility] LDL Cholesterol 54 mg/dL (calc) [facility] Comment: Reference range: <100 Desirable range <100 mg/dL for primary prevention; ?? <70 mg/dL for patients with CHD or diabetic patients with > or = 2 CHD risk factors. LDL-C is now calculated using the Silvana calculation, which is a validated novel method providing better accuracy than the Friedewald equation in the estimation of LDL-C. Alvino SS et al. KIRSTEN. 2013;310(19): 2091-7860 (http://education.[employer]/faq/BWR198) Chol/HDLC Ratio 2.7 <5.0 (calc) [facility] [employer] [facility] Non-HDL Cholesterol 73 <130 mg/dL (calc) [facility] Comment: For patients with diabetes plus 1 major ASCVD risk factor, treating to a non-HDL-C goal of <100 mg/dL (LDL-C of <70 mg/dL) is considered a therapeutic option. Blood Venous blood specimen / Unknown 07/16/2022 10:33 AM EST 07/16/2022 10:33 AM EST Narrative [facility] - 07/16/2022 7:44 PM EST FASTING:NO FASTING: NO us Milena Shoemaker MD LAB BLOOD ORDERABLES Final Re sult [facility] [address], [place] [phone] [facility] [employer] [address] [facility], ([address]) [place] [phone] from Last 3 Months or Most Recently Relevant to Health Maintenance Insurance [place] [address] [place] [id number] [facility]ID STAND ADULT Care Teams Client Service Coordinator Relationship Specialty Start Date End Date Milena Shoemaker MD [address] [place] [address] PCP - General Family Medicine 08/12/22 Maria G Sellers CNP Psychiatrist 02/23/23
--- OUTSIDE RECORDS SUMMARY | 2024-08-07 18:02 | XMS_ITS | Data Portability ---
Author Organization DAPHNIE Vale [facility], [address] Address [address] [place] [address] Assessment No assessment recorded. Plan of Treatment Reminders Order Date Submit Date Provider Last Modified By Organization Details Last Modified Time Details Appointments None recorded . Lab rapid strep group A, throat 2022 023 [facility], [address] [place] [address], [place], [address], 3 10:14:47 streptoc occus group A, culture, throat 2022 023 SACHIN [facility] ([facility], [address] [place] [address], [place], [address], 3 10:06:02 Referral orthoped ic surgeon referral - left shoulder pain on/off x 1 year. failing conserva tive treatmen t . need further evaluati on and treatmen t. 2022 023 [email or web address] 1 [facility] (Nick Hawley), [address] [place], [address], 3 08:11:58 Procedures None recorded . Surgeries None recorded . Imaging XR, shoulder , 2 or more view 2022 023 [facility], [address] [place] [address], [place], [address], 3 11:27:21 Medication Orders Allergy Relief (flutica sone) 50 mcg/actu ation nasal spray,moss spension 2022 023 [facility]/Pharmacy #[id number], [address] [place], [address], 3 10:54:46 predniso ne 10 mg tablet 2021 022 [facility] #[id number], [address] [place] [address], [address], 3 09:36:41 albutero l sulfate HFA 90 mcg/actu ation aerosol inhaler 2021 022 [facility]/Pharmacy #[id number], [address] [place], [address], 2 10:13:25 amoxicil quirino 875 mg-potas sium clavulan ate 125 mg tablet 2021 [id number] [address] [place] [address], [address], 3 09:35:58 loratadi ne 10 mg tablet [email or web address]/Pharmacy #0843, [address] [place] [address], [address], 3 09:36:29 Patient TargetsNo targets recorded. Patient Instructions Encounter Date Encounter Id Patient Instructions Last Modified By Organization Details Last Modified Time 05/18/2022 [id number] controlling your asthma: care instructions [email or web address] Not available 05/18/2022 10:13:20 Acute Sinusitis: Care Instructions [email or web address] Not available 05/18/2022 10:13:20 Based on your presentation and exam, you are being diagnosed with Sinusitis. Rhinosinusitis is most often viral and will resolve on its own in 7-10 days. Symptoms that last longer than 2 weeks an antibiotic could be considered. Based on your presentation, and antibiotic was written. Please be seen again if cough continues longer than 2 more weeks. May need to consider chest x-ray You were prescribed Prednisone - Here is some general Information regarding this medication. 1. Make sure you take with Food 2. Do not take right before bedtime -this should be taken during the day because it may make you a little more wired. May keep you from sleeping. 3. Prednisone will increase glucose -so if you are a diabetic then you will need to monitor your glucose closely. Please d/c if glucose goes above 300. 4. Do not take this medication with Ibuprofen You are a diabetic - please watch your glucose regularly while taking the Prednisone - you may need to adjust insulin on set up sliding scale. The following are my recommendations to help your symptoms and to allow your condition to improve: 1. Drink plenty of fluids while you are ill- stay hydrated 2. Rest - don't overexert yourself - this includes sports and any gym routines. 3. I suggest taking an antihistamine - like Claritin, Zyrtec, or Benedryl 4. If you take OTC cold medication I would recommend Shawna-Selzer Cold/Cough. 5. Mucinex with a lot of water is ok - if you are having trouble clearing your nasal passages of mucous. However, if you start to cough then discontinue - this can increase coughing due to a watery post nasal drip. 6. Saline Nasal [place] is recommended. Since an antibiotic was prescribed you need to complete the full course - this is important so you don't develop any antibiotic resistance to future infections. I advise taking a Probiotic like Florastor since you are on an antibiotic - this will help you re-colonize your body with the good bacteria. Typically, it will take 6 months for you to restore your normal body sharon after an antibiotic. Don't hesitate to be seen again if you develop: 1. Fever > 100.5 2. Worsening Headache 3. Stiff Neck 4. Worsening Cough or Shortness of breath 5. Visual Changes. The antibiotic should start to work in 4-5 days. You may not notice immediate response. Thank you for using [employer] today, please feel free to contact our office if you have any questions or concerns. [email or web address] Not available 05/18/2022 10:12:56 07/08/2022 [id number] shoulder pain: c are instructions Not available 07/08/2022 10:14:47 sore throat: car e instructions Not available 07/08/2022 10:14:47 Use over the counter medications for your sore throat. Basic lozenges (cough drops) or lozenges with an anesthetic (numbing agent) can be used as needed for quick results; look for the active ingredient, benzocaine, for numbing lozenges (like Cepacol Extra or Chloraseptic Max). Gargling with warm salt water can also relieve pain. Dissolve 1/4 to 1/2 teaspoon in 8-ounces of warm water; gargle and spit salt solution every hour, as needed. Sore throat pain can also be reduced by taking regular doses of acetaminophen (tylenol) or ibuprofen (Advil); if you are given a prescription of PREDNISONE, you may continue to take acetaminophen, but do not take ibuprofen or naprosyn. While this isn't quick, it can significantly reduce pain within an hour after taking. Please switch toothbrush after being on antibiotic for 24 hrs. You should follow-up with your PCP in days, or at any time if your condition does not improve or worsens. Any acute change should prompt a visit to the nearest Emergency Department. Sinusitis is an infection of the lining of the sinus cavities in your head. Sinusitis often follows a cold. It causes pain and pressure in your head and face. In most cases, sinusitis gets better on its own in 1 to 2 weeks. But some mild symptoms may last for several weeks. Sometimes antibiotics are needed. if you are having problems. It's also a good idea to know your test results and keep a list of the medicines you take. How can you care for yourself at home? Take an wusd-nby-ipxgzdv pain medicine. Avoid Ibuprofen, Aleve and Aspirin if . If the doctor prescribed antibiotics, take them as directed. Do not stop taking them just because you feel better. You need to take the full course of antibiotics. Be careful when taking mnvp-oir-inlsoxq cold or influenza (flu) medicines and Tylenol at the same time. Many of these medicines have acetaminophen, which is Tylenol. Read the labels to make sure that you are not taking more than the recommended dose. Too much acetaminophen (Tylenol) can be harmful. Breathe warm, moist air from a steamy shower, a hot bath, or a sink filled with hot water. Avoid cold, dry air. Using a humidifier in your home may help. Follow the directions for cleaning the machine. Use saline (saltwater) nasal washes. This can help keep your nasal passages open and wash out mucus and bacteria. You can buy saline nose drops at a grocery store or drugstore. Or you can make your own at home by adding 1 teaspoon (5 millilitres) of salt and 1 teaspoon (5 millilitres) of baking soda to 2 cups (500 mL) of distilled water. If you make your own, fill a bulb syringe with the solution, insert the tip into your nostril, and squeeze gently. Blow your nose. Put a hot, wet towel or a warm gel pack on your face 3 or 4 times a day for 5 to 10 minutes each time. Try a decongestant nasal spray like oxymetazoline (Drixoral). Do not use it for more than 3 days in a row. Using it for more than 3 days can make your congestion worse. Not available 07/08/2022 10:15:22 You can hurt you r shoulder by using it too much during an activity, such as fishing or baseball. It can also happen as part of the everyday wear and tear of getting older. Shoulder injuries can be slow to heal, but your shoulder should get better with time. Your doctor may recommend a sling to rest your shoulder. If you have injured your shoulder, you may need testing and treatment. How can you care for yourself at home? Take pain medicines exactly as directed. If the doctor gave you a prescription medicine for pain, take it as prescribed. If you are not taking a prescription pain medicine, ask your doctor if you can take an cvqx-hhw-dahactb medicine. Do not take two or more pain medicines at the same time unless the doctor told you to. Many pain medicines contain acetaminophen, which is Tylenol. Too much acetaminophen (Tylenol) can be harmful. If your doctor recommends that you wear a sling, use it as directed. Do not take it off before your doctor tells you to. Put ice or a cold pack on the sore area for 10 to 20 minutes at a time. Put a thin cloth between the ice and your skin. If there is no swelling, you can put moist heat, a heating pad, or a warm cloth on your shoulder. Some doctors suggest alternating between hot and cold. Rest your shoulder for a few days. If your doctor recommends it, you can then begin gentle exercise of the shoulder, but do not lift anything heavy. [email or web address] Not available 07/08/2022 10:14:15 Reason for Referral Orthopedic Surgeon Referral for Pain of left shoulder joint left shoulder pain on/off x 1 year. failing conservative treatment . need further evaluation and les left shoulder pain on/off x 1 year. failing conservative treatment . need further evaluation and treatment. Referring Physician: Chance Cortez, Urgent Care, Encounter Date: 07/08/2022 Results Created Date Observation Date Name Description Value Unit Range Abnormal Flag Note LastModifiedBy Organization Detail LastModifiedTime 07/08/19 23 07/11/2022 BETA STREP GP A CULTU RE beta strep gp A culture NEGATI VE Refer ence Range : Negat lala Not Available [facility] ([facility]) [address] [facility], [place], [address], 07/11/2022 10:06:02 07/08/19 23 07/08/2022 rapid strep group A, throa t Unknown Analyte Normal = Negati ve Not Available [facility] [place], [address], 07/08/2022 09:31:24 07/08/19 23 07/08/2022 rapid strep group A, throa t Unknown Analyte negati ve Not Available [facility] [address] [place], [address], 07/08/2022 09:31:24 07/08/19 23 07/08/2022 XR, shoul flo, 2 or more view No observ ation record ed. [email or web address] [facility] [address] [facility], [place], [address], 07/08/2022 15:06:55 Result Notes None recorded. Problems Name Problem SNOMED Code Status Onset Date Resolution Date Notes Provider Name and Address Organization Details Recorded Time Asthma 370166431 Active 2021 DAPHNIE Lipscomb - [facility] 12/06/202 2 09:32:52 Hypertensive disorder 00955257 Active 2021 KATHARINA ARTEAGADC murcia, [place] - [facility] 2 09:33:10 Hyperlipidemia 10368569 Active 2021 KATHARINA ARTEAGADC null, PA - [facility] 2 09:33:19 Diabetes mellitus 85413131 Active 2021 KATHARINA ARTEAGADC null, PA - [facility] 2 09:33:30 Sleep apnea 78364853 Active 2021 KATHARINA ARTEAGADC null, PA - [facility] 2 09:33:44 Problem Notes None recorded. Procedures Surgical History Date Name Laterality Status Provider Name and Address Organization Details Recorded Time Prostate biopsy, any mthd completed KATHARINA BATISTA PA - [facility] 05/18/2022 09:26:39 Neck spine disk surgery completed KATHARINA BATISTA PA - [facility] 05/18/2022 09:26:56 Imaging Results Imaging Date Name Status LastModified by Organiz ation Details LastModified Time 07/08/2022 XR, shoulder, 2 or more view completed [address] [facility] [address] [place] [address], [address], 07/08/2022 15:06:55 Procedure Notes None recorded. Medical Equipment None Reported. Allergies Allergen ID Allergen Name Allergen Category Reaction Reaction Severity Criticality Documentation Date Start Date Code Code System Note Provider Name and Address Organization Details Recorded Time 58780 cyclobenz aprine hydrochlo ride medicatio n Not available Not available Not available 05/18/2022 86953 RxNorm KATHARINA ARTEAGADC null, PA - [facility] 2 09:22:07 32437 Seroquel medicatio n Not available Not available Not available 05/18/2022 75430 RxNorm KATHARINA ARTEAGADC null, PA - [facility] 2 09:22:44 Medications Name Sig Start Date Stop Date Status Note LastModified by Organization Details LastModified Time atorvastati n 80 mg tablet TAKE 1 TABLET BY MOUTH EVERYDAY AT BEDTIME active Not Available Not Available No t Available prednisone 10 mg tablet TAKE 3 TABLETS BY MOUTH FOR 3 DAYS,THEN 2 TABLETS DAILY FOR 3 DAYS THEN 1 TABLET DAILY FOR 3 DAYS 07/08 completed Not Available Not Available Not Available FreeStyle Lancets 28 gauge TEST 3 TIMES DAILY active Not Available Not Available No t Available ketorolac 0.5 % eye drops INSTILL 1 DROP INTO BOTH EYES THREE TIMES A DAY MUST SEE PROVIDER TO GET MORE REFILLS active Not Available Not Available No t Available losartan 100 mg-hydrochl orothiazide 25 mg tablet TAKE 1 TABLET BY MOUTH EVERY DAY active Not Available Not Available No t Available gabapentin 800 mg tablet TAKE 1 TABLET BY MOUTH 3 TIMES A DAY active Not Available Not Available No t Available baclofen 10 mg tablet TAKE 1 TABLET BY MOUTH 3 TIMES A DAY 05/18 completed Not Available Not Available Not Available nicotine 21 mg/24 hr daily transdermal patch APPLY 1 PATCH TOPICALLY DAILY active Not Available Not Available No t Available epinephrine 0.3 mg/0.3 mL injection, auto-inject or INJECT 1 PEN INTRAMUSC ULARLLY ONCE NEEDED FOR ALLERGIES 07/08 completed Not Available Not Available Not Available albuterol sulfate HFA 90 mcg/actuati on aerosol inhaler INHALE 2 PUFFS EVERY 4 HOURS BY INHALATIO N ROUTE. active Not Available Not Available No t Available fluticasone propionate 50 mcg/actuati on nasal spray,suspe nsion SPRAY 1 SPRAY TWICE A DAY IN EACH NOSTRIL DIRECTED FOR 14 DAYS FOR ALLERGY SYMPTOMS. active Not Available Not Available No t Available loratadine 10 mg tablet TAKE 1 TABLET BY MOUTH EVERY DAY 07/08 completed Not Available Not Available Not Available amoxicillin 875 mg-potassiu m clavulanate 125 mg tablet TAKE 1 TABLET BY MOUTH TWICE A DAY 07/08 completed Not Available Not Available Not Available oxycodone 5 mg tablet TAKE 1 TABLET BY MOUTH EVERY 12 HOURS NEEDED FOR PAIN FOR 30 DAYS 05/18 completed Not Available Not Available Not Available Novolog FlexPen U-100 Insulin aspart 100 unit/mL (3 mL) subcutaneou s INJECT 10-20 UNITS 3 TIMES DAILY PER SLIDING SCALE active Not Available Not Available No t Available duloxetine 20 mg capsule,del ayed release TAKE 1 CAPSULE BY MOUTH EVERY DAY 07/08 completed Not Available Not Available Not Available BD Ultra-Fine Short Pen Needle 31 gauge x 5/16 USE UP TO 4 TIMES DAILY active Not Available Not Available No t Available FreeStyle Lite Strips TEST 3 TIMES DAILY active Not Available Not Available No t Available oxycodone 10 mg tablet TAKE 1 TABLET BY MOUTH EVERY 12 HOURS INCREASED DOSE FROM PREVIOUS LOWER BACK PAIN, NECK PAIN 05/18 completed Not Available Not Available Not Available Jardiance 10 mg tablet TAKE 1 TABLET BY MOUTH EVERY MORNING active Not Available Not Available No t Available Jardiance 25 mg tablet TAKE 1 TABLET BY MOUTH EVERY MORNING active Not Available Not Available No t Available Basaglar KwikPen U-100 Insulin 100 unit/mL (3 mL) subcutaneou s INJECT 68 UNITS SUBCUTANE OUSLY DAILY AT BEDTIME active Not Available Not Available No t Available Vitals Date Recorded Body height Body mass index (BMI) Body weight Body temperature Oxygen saturation Oxygen saturation in Arterial blood by Pulse oximetry Heart rate Respiratory rate Systolic blood pressure Diastolic blood pressure Provider Name and Address Organization Details Last Updated DateTime 2 175.26 cm 39.9 kg/m2 318633. 94 g 97.3 [degF] 96 % 96 % 81 /min 18 /min 147 mm[Hg] 85 mm[Hg] KATHARINA Vale [facility] 2 09:20:52 Date Recorded Body height Pain severity - 0-10 verbal numeric rating [Score] - Reported Oxygen saturation Oxygen saturation in Arterial blood by Pulse oximetry Heart rate Respiratory rate Body temperature Body mass index (BMI) Body weight Systolic blood pressure Diastolic blood pressure Provider Name and Address Organization Details Last Updated DateTime 3 175.26 cm 10 97 % 97 % 90 /min 18 /min 98.5 [degF] 39.3 kg/m2 379635. 85 g 155 mm[Hg] 80 mm[Hg] SALIMA BENAVIDES PA Akanksha [facility] 3 09:42:36 Social History Question Answer Notes LastModified by Organizat ion Details LastModified Time Tobacco Smoking Status Current Every Day Smoker DAPHNIE Lipscomb [facility] 05/18/2022 09:28:04 Which Illicit Or Recreational Drugs Have You Used? Marijuana Information not available 05/18/2022 How Much Tobacco Do You Smoke? 0.5 PPD Information not available 05/18/2022 Do You Use Any Illicit Or Recreational Drugs? Yes Information not available 05/18/2022 Have You Recently Traveled Abroad? No [email or web address] Information not available 07/08/2022 Sex: Unknown Functional Status None recorded. Mental Status None recorded. Family History Relationship Description Onset Age of this Age Resolved Age Notes LastModified by Organization Details LastModified Time Father No current problems or disability [email or web address] Not available 07/08 09:38:47 Mother No current problems or disability [email or web address] Not available 07/08 09:38:47 Medical History No medical history recorded. Immunizations Vaccine Type Date Status Note Provider Nam e and Address Organization Details Recorded Time Hep B, adult 2 completed SALIMA murcia PA - [facility] 07/08/2022 09:34:59 COVID-19, mRNA, LNP-S, PF, 30 mcg/0.3 mL dose, andreina-sucrose 2 completed SALIMA BENAVIDES null PA - [facility] 07/08/2022 09:34:59 Td (adult), 2 Lf tetanus toxoid, preservative free, adsorbed 2 completed SALIMA murcia PA - [facility] 07/08/2022 09:34:59 Past Encounters Encounter ID Performer Location Encounter Start Date Encounter Closed Date Diagnosis/Indication Diagnosis SNOMED-CT Code Diagnosis ICD10 Code Diagnosis Note [id number] DAPHNIE KWONG [address] [address] 05/18/2022 09:13:46 05/18/2022 10:21:06 Acute sinusitis 17372165 J01.90 Exacerbati on of intermittent asthma 321887824 J45.21 [id number] [place] [address] [address] 07/08/2022 08:26:49 07/08/2022 11:03:15 Acute sinusitis 32667784 J01.90 Pain of le ft shoulder joint [id number] 1028107 M25.512 Health Concerns Section Related Observation LastModified by Organization Detai ls LastModified Time None Recorded Concern Status LastModified by Organization Details LastModified Time None Recorded Advance Directives Directive None Recorded Payers Encounter Date Sequence Insurance Name Policy Number Policy Monzon Covered Member ID Monzon Member ID Guarantor Name 05/18/2022 2 [place] [facility] Gallo Saini [id number] Gallo Saini 05/18/2022 1 MED[place]ARE B-[place] [facility] Gallo Saini [id number] Gallo Saini 07/08/2022 2 [place] [facility] Gallo Saini [id number] Gallo Saini 07/08/2022 1 [place] B[place] [employer] [facility] Gallo Saini [id number] Gallo Saini Notes Date Note Type Note Provider Name and Address Organization Details Recorded Time 2 text/html CoughReported bypatient.source of patient informationInformation obtained from patient; Patient arrived at Urgent Care ambulatory Quality:productive cough; symptoms worse with lying down Severity:moderate Duration:symptoms lasting over 2 weeks Timing:constant Context:history of asthma Modifying Factors:Lying down; at night Associated Symptoms:no fever; no chills; no chest pain; no heartburn; no nausea; no vomiting; no edema; no agitation;wheezing;post nasal drip;can't get a deep breathNotes:The patient reports that had a COVID about 1 month ago. He reports that since then has had increased congestion in his chest. history of asthma and sleep apnea. Uses CPAP at night. Feeling very fatigued and having body aches. The patient does not have a PCP right now. Has been also fighting left arm pain due to a shoulder tear. Still waiting to see an orthopedist but needs a referral from a primary care physician. The patient is denying and chest pain or heart palpitations. No documented fever. DAPHNIE KWONG [address] [place], [address], [place] - [facility] 05/18/2022 22:36:54 3 text/html Shoulder UCReported bypatient.source of patient informationInformation obtained from patient; Patient arrived at Urgent Care ambulatory Hand Dominance:left Location:left; anterior Quality:aching; sharp; constant; worsening Severity:moderate Duration:1 years Timing:gradual; morning; daytime; nighttime; recurrent; intermittent episodes lasting: Context:cannot identify Alleviating Factors:sitting; heat; rest; limited weight bearing Aggravating Factors:lifting; carrying; pushing/pulling; gripping; grasping; squeezing; ROM Associated Symptoms:no weakness; no numbness; no tingling; no swelling; no redness; no warmth; no ecchymosis; no catching/locking; no buckling; no grinding; no instability; no radiation down arm; no drainage; no fever; no chills; no weight loss; no change in bowel/bladder habits;popping/clicking Previous InjuryPrior injury to left shoulder Previous Treatmentnone Prior Imaging:none Chance Cortez NP [facility] [place], [address], [place] - [facility] 07/08/2022 11:02:47
--- OUTSIDE RECORDS SUMMARY | 2024-08-07 18:02 | XMS_ITS | Clinical Summary ---
Author Organization [facility] Address [address] [place] [address] Care Team Providers Care Biogeographer Name Role Phone Milena Shoemaker MD Primary Care Provider [phone] Allergies Active Allergy Reactions Criticality Noted Date Comments Coconut Hives Medium 09/01/2023 Cyclobenzaprine Rash/Dermatitis Low 09/07/2023 Per pt, flexeril has caused rash in past Lisinopril Cough Low 08/30/2023 Naproxen GI Intolerance/Nausea/Vomiti ng Low 08/30/2023 Seafood Anaphylaxis High 08/30/2023 Medications Medication Sig Dispensed Refills Start Date End Date Status chlorthalidone (HYGROTON) 50 MG tablet Take 1 tablet (50 mg total) by mouth daily. Active tamsulosin (FLOMAX) 0.4 MG capsule Take 1 capsule (0.4 mg total) by mouth daily. Active insulin glargine (LANtus/SEMGLEE SOLOSTAR) 100 units/mL prefilled pen injection Inject 30 Units under the skin daily. And sliding scale Active empagliflozin (Jardiance) 25 MG tablet Take 1 tablet (25 mg total) by mouth every morning. Active dulaglutide (Trulicity) 4.5 mg/0.5 mL prefilled pen injection Inject 4.5 mg under the skin once a week. Active atorvastatin (LIPITOR) 80 MG tablet Take 1 tablet (80 mg total) by mouth nightly. Active gabapentin (NEURONTIN) 800 MG tablet Take 1 tablet (800 mg total) by mouth 3 (three) times a day. Active albuterol (PROVENTIL HFA; VENTOLIN HFA) 108 (90 Base) MCG/ACT inhaler Inhale 1-2 puffs. Ac tive NICOTINE NA Apply topically. patch Active hydrALAZINE (APRESOLINE) 25 MG tabletIndications:Se ptic arthritis of vertebra, due to unspecified organism Take 3 tablets (75 mg total) by mouth 3 (three) times a day. 270 tablet 09/16/2023 Active carvedilol (COREG) 12.5 MG tabletIndications:Se ptic arthritis of vertebra, due to unspecified organism Take 0.5 tablets (6.25 mg total) by mouth 2 (two) times a day. 30 tablet 09/16/2023 Active spironolactone (ALDACTONE) 25 MG tabletIndications:Se ptic arthritis of vertebra, due to unspecified organism Take 1 tablet (25 mg total) by mouth daily. 30 tablet 09/16/2023 Active mupirocin (BACTROBAN) 2 % ointmentIndications: Septic arthritis of vertebra, due to unspecified organism Apply topically 2 (two) times a day. 22 g 09/16/2023 Active oxyCODONE (ROXICODONE) 5 MG immediate release tabletIndications:Se ptic arthritis of vertebra, due to unspecified organism Take 1 tablet (5 mg total) by mouth every 4 (four) hours as needed for severe pain. Max Daily Amount: 30 mg 30 tablet 09/16/2023 Active baclofen (LIORESAL) 10 MG tabletIndications:Se ptic arthritis of vertebra, due to unspecified organism Take 1 tablet (10 mg total) by mouth 3 (three) times a day. 90 tablet 09/16/2023 Active Active Problems Problem Noted Date Diagnosed Date MAURI on CPAP 08/30/2023 Primary hypertension 08/30/2023 Diabetic polyneuropathy asso ciated with type 2 diabetes mellitus 08/30/2023 Type 2 diabetes mellitus, wi th long-term current use of insulin 08/30/2023 Septic arthritis of vertebra 08/30/2023 Asthma 08/30/2023 Amputation of left great toe 08/30/2023 Septic arthritis of vertebra, due to unspecified organism 08/30/2023 Social History Tobacco Use Types Packs/Day Years Used Date Smoking Tobacco: Former Cigarettes Tobacco Cessation:Counseling Given: Not Answered Alcohol Use Standard Drinks/Week Comments Not Asked 0 (1 standard drink = 0.6 oz pur e alcohol) [facility] Utilities Answer Date Recorded In the past 12 months has e [employer], [employer], oil, or water [employer] threatened to shut off services in your home? No 08/31/2023 AUDIT-C Answer Date Recorded Q1: How often do you have a drink containing alcohol? Never 08/31/2023 Q2: How many drinks containi ng alcohol do you have on a typical day when you are drinking? Patient does not drink Q3: How often do you have si x or more drinks on one occasion? Never 08/31/2023 Hunger Vital Sign Answer Date Recorded Within the past 12 months, y ou worried that your food would run out before you got the money to buy more. Never true 08/31/19 Within the past 12 months, t he food you bought just didn't last and you didn't have money to get more. Never true 08/31/2023 PRAPARE - Transportation Answer Date Re corded In the past 12 months, has l ack of transportation kept you from medical appointments or from getting medications? No 08/12 In the past 12 months, has l ack of transportation kept you from meetings, work, or from getting things needed for daily living? No 08/31/2023 Housing Stability Vital Sign Answer Josias e Recorded In the last 12 months, was t here a time when you were not able to pay the mortgage or rent on time? No 08/31/2023 In the last 12 months, how many places have you lived? 1 08/31/2023 In the last 12 months, was t here a time when you did not have a steady place to sleep or slept in a fdc (including now)? No 08/31/2023 Sex and Gender Information Value Date Recorded Sex Assigned at Male 08/30/2023 7:47 PM EDT Gender Identity Male 08/30/2023 7:47 PM EDT Sexual Orientation Heterosexual (straight) 08/31 12:38 PM EDT Last Filed Vital Signs Vital Sign Reading Time Taken Comments Blood Pressure 172/92 09/16/2023 12:39 PM EDT Pulse 68 09/16/2023 7:15 AM EDT Temperature 37 ??C (98.6 ??F) 09/16/2023 7:15 AM EDT Respiratory Rate 17 09/16/2023 7:15 AM EDT Oxygen Saturation 97% 09/16/2023 7:15 AM EDT Inhaled Oxygen Concentration - - Weight 116 kg (255 lb) 09/09/2023 10:47 AM EDT Height 172.7 cm (5' 8 ) 09/09/2023 10:47 AM EDT Body Mass Index 38.77 09/09/2023 10:47 AM EDT Plan of Treatment Health Maintenance Due Date Last Done Comments Hepatitis C Virus Screening 1972 Foot Exam 1982 Hemoglobin A1C 1982 Lipid Panel 1982 Ophthalmology Exam 1982 HIV Screening 1985 Microalbumin/Creatinine Rati o Urine 1990 DTaP/Tdap/Td Vaccines (1 - Tdap) 11/22/1991 Hepatitis B Vaccines (1 of 3 - 19+ 3-dose series) 11/22/1991 Pneumococcal Vaccines 50+ (1 of 2 - PCV) 11/22/1991 Colonoscopy 2017 Zoster (Shingles) Vaccine (1 of 2) 2022 Influenza Vaccine 01/12/2024 COVID-19 Vaccine (1 - 2023-2 5 season) 2024 Creatinine with GFR 09/15/2024 09/16/2023, 09/15/2023, 09/14/2023, Additional history exists Procedures Procedure Name Priority Date/Time Associated Diagnosis Comments BASIC METABOLIC PANEL Routine 09/16/2023 5:08 AM EDT from Last 3 Months or Most Recently Relevant to Health Maintenance Results * (ABNORMAL) Basic Metabolic Panel (Early AM) (09/16/2023 5:08 AM EDT) Glucose 154(H) 65 - 99 mg/dL 09/16/2023 5:57 AM EDT [facility] Comment:Fasting: <100 mg/dL, Non-Fasting: <200 mg/dL (ADA 2005) Blood Urea Nitrogen (BUN) 23(H) 8 - 21 mg/dL 09/16/2023 5:57 AM EDT [facility] Creatinine 1.2 0.5 - 1.3 mg/dL 09/16/2023 5:57 AM EDT [facility] eGFR 74 >59 09/16/2023 5:57 AM EDT [facility] Comment:CKD-EPI (2020) in mL /min/1.73 sq meters. Sodium 138 136 - 145 mmol/L 09/16/2023 5:57 AM EDT [facility] Potassium 3.8 3.4 - 5.3 mmol/L 09/16/2023 5:57 AM EDT [facility] Chloride 101 98 - 107 mmol/L 09/16/2023 5:57 AM EDT [facility] CO2 27 22 - 33 mmol/L 09/16/2023 5:57 AM EDT [facility] Anion Gap 10 7 - 17 09/16/2023 5:57 AM EDT [facility] Calcium 8.8 8.7 - 10.5 mg/dL 09/16/2023 5:57 AM EDT [facility] BUN/Creatinine Ratio 19 10.0 - 25.0 Ratio 09/16/2023 5:57 AM EDT [facility] Blood specimen (specimen) (Plasma/Serum) 09/16/2023 5:08 AM EDT 09/16/2023 5:32 AM EDT Yareli Mccoy MD [place] [address], [address] [address] from Last 3 Months or Most Recently Relevant to Health Maintenance Advance Directives * Full Code (Latest Code Status on File) Date Activated Date Inactivated Comments 08/30/2023 11:42 PM Question Answer Comments Decision Thoroughly Discussed with: Patient Care Teams Biogeographer Relationship Specialty Start Date End Date Milena Shoemaker MD [address] [place] [id number] PCP - General Family Medicine 08/30/23
--- OUTSIDE RECORDS SUMMARY | 2024-08-07 18:02 | XMS_ITS | Encounter Summary ---
Author Organization [employer] Address [address] [facility] [address] [place] [address] Care Team Providers Care Youth Coordinator Name Role Phone Milena Shoemaker MD Primary Care Provider [phone] Reason for Visit * Reason Onset Date Comments Med Refill 07/13/2024 Encounter Details Date Type Department Care Team ([facility] st Contact Info) Description 07/13/[address] [facility] MED & PEDS [address] [place], [place] [phone] Milena Shoemaker MD [address] [place], [place] [phone] Chronic midline low back pain without sciatica [...] 09/05/2024 9:30 AM EDT Clinical Support [facility] MED & PEDS [address] [place] [address] Luma Dalton, LUIS [address] [place] [address] documented as of this encounter Visit Diagnoses Diagnosis Chronic midline low back pain without sciatica documented in this encounter Additional Health Concerns Assessment Noted Time PHQ-9 Depression Total Score: 7 07/15/19 23 1:17 PM EST documented as of this encounter Care Teams Youth Coordinator Relationship Specialty Start Date End Date Milena Shoemaker MD [address] [place] [address] PCP - General Family Medicine 08/12/22 Maria G Sellers CNP Psychiatrist 02/23/23 documented as of this encounter
== END 2024-08-07 14:50 | disposition home or self-care (01) ==
LOC: HO.HKA 14:21
PROVIDERS: PCP Family Medicine; Visit Provider Internal Medicine Hypertension Specialist
DX: I12.9 Hypertensive chronic kidney disease with stage 1 through stage 4 chronic kidney disease, or unspecified chronic kidney disease (principal); N18.9 Chronic kidney disease, unspecified; E11.9 Type 2 diabetes mellitus without complications; Z79.4 Long term (current) use of insulin
CPT/HCPCS: 99214

== ENCOUNTER → 2024-08-07 14:21 | Outpatient (BNVA) | payer MEDICARE, MEDICAID, SELFPAY | PROVIDERS: PCP Family Medicine; Visit Provider Internal Medicine Hypertension Specialist | DX: E11.22 Type 2 diabetes mellitus with diabetic chronic kidney disease (principal); I12.9 Hypertensive chronic kidney disease with stage 1 through stage 4 chronic kidney disease, or unspecified chronic kidney disease; N18.9 Chronic kidney disease, unspecified; Z79.4 Long term (current) use of insulin | CPT/HCPCS: 99212 ==

== ENCOUNTER 2024-08-22 11:20 | Outpatient (REF) | payer MEDICARE, MEDICAID, SELFPAY ==
--- NOTE | ~2024-08-22 | US_ITS ---
EXAMINATION: US KIDNEY BILATERAL HISTORY: I10 - Essential (primary) hypertension TECHNIQUE: Real-time grayscale ultrasound imaging of the kidneys was performed and images were reviewed. COMPARISON: There are no prior studies for comparison. FINDINGS: Right kidney: The right kidney measures 14.2 x 6.1 x 6.6 cm. Renal parenchymal echotexture and thickness are normal. There are no masses. There is no hydronephrosis or renal calculi. Left Kidney: The left kidney measures 15.3 x 7.7 x 6.2 cm. Renal parenchymal echotexture and thickness are normal. There are no masses. There is no hydronephrosis or renal calculi. US/US renal BI IMPRESSION: Unremarkable renal ultrasound. Electronically signed by: Chuck Radford MD 08/22/2024 11:46 AM EDT
--- OUTSIDE RECORDS SUMMARY | 2024-08-22 13:24 | XMS_ITS | Encounter Summary ---
Author Organization [employer] Address [address] [place] [address] [address] [place] [address] Care Team Providers Care Rn Gyn Name Role Phone Milena Shoemaker MD Primary Care Provider [phone] Encounter Details Date Type Department Care Team (Late Contact Info) Description 11/10/2022 [facility] [employer] [facility] [address] [place], [place] [phone] Milena Shoemaker MD [address] [place] [address] Social History Tobacco Use Types Packs/Day Years [...] Description 09/05/2024 9:30 AM EDT Clinical Support [facility] MED & PEDS [address] [place], [place] [phone] Luma Dalton RN [address] [place] [address] documented as of this encounter Visit Diagnoses Not on filedocumented in this encounter Additional Health Concerns Assessment Noted Time PHQ-9 Depression Total Score: 7 07/15/19 23 1:17 PM EST documented as of this encounter Care Teams Rn Gyn Relationship Specialty Start Date End Date Milena Shoemaker MD [address] [facility] [place] [address] PCP - General Family Medicine 08/12/22 Maria G Sellers CNP Psychiatrist 02/23/23 documented as of this encounter
--- OUTSIDE RECORDS SUMMARY | 2024-08-22 13:24 | XMS_ITS | Encounter Summary ---
Author Organization [employer] Address [address] [facility] [address] [place] [address] Care Team Providers Care Supervisor Instrument Repair Name Role Phone Milena Shoemaker MD Primary Care Provider [phone] Reason for Visit * Reason Comments Med Refill Encounter Details Date Type Department Care Team ([facility] st Contact Info) Description 08/14/2024 Refill [facility] MED & PEDS [address] [place] [address] Milena Shoemaker MD [address] [place] [address] Seasonal allergies; Diabetic polyneuropathy associated with type 2 diabetes mellitus ([facility]) Social History Tobacco Use Types Packs/Day Years [...] Description 09/05/2024 9:30 AM EDT Clinical Support [facility] MED & PEDS [address] [place] [address] Luma Dalton, LUSI [address] [place] [address] documented as of this encounter Visit Diagnoses Diagnosis Seasonal allergies Allergic rhinitis, cause unspecified Diabetic polyneuropathy associated with type 2 diabetes mellitus ([facility]) documented in this encounter Additional Health Concerns Assessment Noted Time PHQ-9 Depression Total Score: 7 07/15/19 23 1:17 PM EST documented as of this encounter Care Teams Supervisor Instrument Repair Relationship Specialty Start Date End Date Milena Shoemaker MD [address] [place] [address] PCP - General Family Medicine 08/12/22 Maria G Sellers CNP Psychiatrist 02/23/23 documented as of this encounter
--- OUTSIDE RECORDS SUMMARY | 2024-08-22 13:24 | XMS_ITS | Clinical Summary ---
Author Organization [employer] Address [address] [place] [address] 7[address] [place] [address] Care Team Providers Care Blooming Mill Supervisor Name Role Phone Milena Shoemaker MD Primary Care Provider [phone] Allergies Active Allergy Reactions Criticality Noted Date [...] for nausea or vomiting. 20 tablet Active atorvastatin (Lipitor) 80 MG tabletIndication s:Hyperlipidemia , unspecified hyperlipidemia type TAKE ONE TABLET AT BEDTIME 90 tablet Active Blood Glucose Monitoring Suppl (Veodin Lite) w/Device kit Use to test blood sugar QID times daily 1 kit Active Alcohol Swabs 70 % pads Use to test blood sugar QID times daily 100 each Active Lancets misc Use to test blood sugar QID times daily 100 each Active dulaglutide (Trulicity) 3 MG/0.5ML solution pen-injectorIndi cations:Type 2 diabetes mellitus with hyperglycemia, with long-term current use of insulin ([facility]) Inject 3 mg under the skin 1 [...] hyperglycemia, with long-term current use of insulin ([facility]) TAKE ONE TABLET EVERY MORNING 90 tablet 1 Active losartan (Cozaar) 100 MG tabletIndication s:Essential [...] by mouth 2 times daily. 60 tablet 2024 Active insulin glargine (Basaglar KwikPen) 100 UNIT/ML penIndications:T ype 2 diabetes mellitus with hyperglycemia, with long-term current use of insulin ([facility]) INJECT 60 UNITS SUBCUTANEOUSLY DAILY AT BEDTIME 15 mL 5 Active Continuous Glucose Sensor (FreeStyle Cata 2 Sensor) miscIndications: Type 2 diabetes mellitus with hyperglycemia, with long-term current use of insulin ([facility]),Diabet ic ulcer of toe of right foot associated with diabetes mellitus due to underlying condition, with fat layer exposed ([facility]) Inject 2 Units into the skin every 14 (fourteen) days. 2 each 2024 Active Continuous Glucose [employer] (FreeStyle Cata 2 [place]) deviceIndication s:Type 2 diabetes mellitus with hyperglycemia, with long-term current use of insulin ([facility]),Diabet ic ulcer of toe of right foot associated with diabetes mellitus due to underlying condition, with fat layer exposed ([facility]) Use to monitor interstitial glucose 8 times a day and as needed 1 each Active glucose blood (FreeStyle Precision Alexander Test) test strip 1 each by Other route 3 times daily. TID due to medicare coverage 100 each Active FreeStyle lancetsIndicatio ns:Type 2 diabetes mellitus with hyperglycemia, with long-term current use of insulin ([facility]) 1 each by Other route 3 times daily. Test QID and prn 100 each Active clotrimazole-bet amethasone (Lotrisone) cream APPLY TO THE AFFECTED AREA(S) TWICE DAILY FOR 28 DAYS 45 g 1 024 Active baclofen (Lioresal) 10 MG tabletIndication s:Chronic [...] CAPSULE BY MOUTH EVERY MORNING 90 capsule 025 Active oxyCODONE (Roxicodone) 5 MG immediate release tabletIndication s:Chronic midline low back pain without sciatica TAKE ONE TABLET EVERY 6 HOURS NEEDED FOR SEVERE PAIN 112 tablet 025 Active fluticasone (Flonase) 50 MCG/ACT nasal sprayIndications :Seasonal allergies USE ONE SPRAY IN EACH NOSTRIL TWICE DAILY 16 g 025 Active gabapentin (Neurontin) 800 MG tabletIndication s:Diabetic polyneuropathy associated with type 2 diabetes mellitus (CMS/HCC) TAKE ONE TABLET THREE TIMES DAILY 90 tablet 5 025 Active naloxone (Narcan) 4 mg/0.1 mL nasal spray Administer 1 spray (4 mg) into affected nostril(s) if needed for opioid reversal. May repeat every 2-3 minutes if needed, alternating nostrils, until medical assistance becomes available. 2 each 2 025 2025 Active gabapentin (Neurontin) 800 MG tabletIndication s:Diabetic polyneuropathy associated with type 2 diabetes mellitus (CMS/HCC) TAKE ONE TABLET THREE TIMES DAILY 90 tablet 5 024 2024 Discontinued fluticasone (Flonase) 50 MCG/ACT nasal sprayIndications :Seasonal allergies USE ONE SPRAY IN EACH NOSTRIL TWICE DAILY 16 g 024 2024 Discontinued oxyCODONE (Roxicodone) 5 MG immediate release tabletIndication s:Chronic midline low back pain without sciatica Take 1 tablet (5 mg) by mouth every 6 (six) hours if needed for severe pain. 112 tablet 025 2024 Discontinued Active Problems Problem Noted Date Diagnosed Date [...] long-term safety. This is consistent with the [place] [employer]? s Standards of Medical Care in Diabetes--2023 (https://diabetesjournals.org/care/article/47/Supplement_1/S126/691583/7-Diabete s-Daysi ndprhff-Osoqzmthw-lq-Care-in) Assessment & Plan (04/23/2024 1:51 AM EST): [...] will be prudent to refer patient to pheresis specialist. Edema 07/15/2022 Assessment & Plan (07/15/2022 5:13 [...] 70% pads Blood Glucose Monitoring Suppl (Freestyle [place] Lite) w/Device Kit Freestyle Lite test strip Lancets [facility] Assessment & Plan (10/21/2023 9:34 AM EDT): [...] Encounters Date Type Department Care Team Description 08/22/2024 Orders Only [facility] External Provider, [facility] 08/15/2024 Refill [facility] [address] [place], [place] [phone] Avila Cee MD Chronic midline low back pain without sciatica 08/14/2024 Refill [facility] MED [facility] P[facility] [address] [place], [place] [phone] Milena Shoemaker MD Seasonal allergies; Diabetic polyneuropathy associated with type 2 diabetes mellitus ([facility]) 08/14/2024 Refill [facility] MED [facility] PED[facility] [address] [place], [place] [phone] Avila Cee MD Chronic midline low back pain without sciatica 07/13/2024 Refill [facility] [address] [place], [place] [phone] Milena Shoemaker MD Chronic midline low back pain without sciatica 07/03/2024 Refill [facility] [address] [place], [place] [phone] Milena Shoemaker MD Cramp and spasm 06/28/2024 Refill [facility] [address] [place], [place] [phone] Milena Shoemaker MD Asthma, unspecified asthma severity, unspecified whether complicated, unspecified whether persistent 06/25/2024 Orders Only GENERIC EXTERNAL DATA DEPARTMENT Provider, Generic External Data 06/15/2024 Refill [facility] [address] [place], [place] [phone] Milena Shoemaker MD Chronic midline low back pain without sciatica 06/15/2024 Refill [facility] [address] [place], [place] [phone] Eri Leo MD Chronic midline low back pain without sciatica 06/15/2024 Telephone [place] [employer] [address] [place] [phone] Milena Shoemaker MD 06/14/2024 10:00 AM EST Clinical Support [facility] [address] [place], [place] [phone] Luma Dalton RN Chronic midline low back pain without sciatica 06/14/2024 Refill [facility] [address] [place] [phone] Luma Dalton RN Chronic midline low back pain without sciatica 06/14/2024 Travel 06/08/2024 Refill [facility] [address] [place] [phone] Milena Shoemaker MD from Last 3 Months Immunizations Name Administration [...] Description 09/05/2024 9:30 AM EDT Clinical Support [facility] [address] [place] [address] Luma Dalton, RN [address] [place] [address] Health Maintenance Due Date Last Done Comments [...] [employer] 11/14/2023 11/12/2022, 10/01 Diabetes: Hemoglobin A1C 07/21/2024 024, 01/23/2024, 10/21/2023, Additional history exists SDOH Screening 08/10/2024 08/11/2023 Influenza Vaccine (#1) 2024 2, 02/13/2009, 05/31/2006 Postponed from 02/12/2024 (Patient Refused) COVID-19 Vaccine ( season) 2025 08/13/2021 Postponed from 02/12/2024 (Patient [...] Procedure Name Priority Date/Time Associated Diagnosis Comments US RENAL BI Routine 08/22/2024 11:30 AM EDT COMPREHENSIVE METABOLIC PANEL Routine 06/25/2024 3:11 PM EST CBC Routine 06/25/2024 3:11 PM EST URINE PROTEIN, TOTAL, RANDOM (W/O CREATININE) Routine 06/25/2024 3:06 PM EST CREATININE, RANDOM URINE Routine 06/25/2024 3:06 PM EST URINALYSIS, COMPLETE Routine 06/25/2024 3:06 PM EST POCT REMI-14 URINE DRUG SCREEN Routine 06/14/2024 8:47 AM EST Chronic midline low back pain without sciatica POCT GLYCATED HEMOGLOBIN, TOTAL Routine 04/20/2024 1:24 PM EST Type 2 diabetes mellitus with hyperglycemia, with long-term current use of insulin (CMS/HCC) INTRAORAL - COMPLETE SERIES OF RADIOGRAPHIC IMAGES Routine 11/12/2022 9:00 AM EDT COMPREHENSIVE ORAL EVALUATION - NEW OR ESTABLISHED PATIENT Routine 11/12/2022 9:00 AM EDT LIPID PANEL, STANDARD Routine 07/16/2022 10:33 AM EST Morbid obesity (CMS/HCC) from Last 3 Months or Most Recently Relevant to Health Maintenance Results * US RENAL BI (08/22/2024 11:30 AM EDT) Anatomical Region Laterality Modality Abdomen Ultrasound 08/22/2024 11:3 0 AM EDT Narrative 08/22/2024 11:49 AM EDT ? [facility] ?[address] ?[place] [address] ? Ultrasound Report ? Signed ? Patient: Saini,Gallo ?MR#: [id number] ?? [id number] ? : 1970 ?Acct:[id number] ? Age/Sex: 53 / M ?ADM Date: 03/12/25 ? Loc: HO.US ? Attending Dr: Brandon Hernandez MD ? Ordering Physician: Brandon Hernandez MD ?? Date of Service: 08/22/24 ?? Procedure(s): US renal BI ?? Accession Number(s): [id number] ? cc: Brandon Hernandez MD; Milena Shoemaker MD ? EXAMINATION: ??US KIDNEY BILATERAL ? HISTORY: I10 - Essential (primary) hypertension ? TECHNIQUE: Real-time grayscale ultrasound imaging of the kidneys was ?? performed and images were reviewed. ? COMPARISON: There are no prior studies for comparison. ? FINDINGS: ? Right kidney: ??The right kidney measures 14.2 x 6.1 x 6.6 cm. ??Renal ?? parenchymal echotexture and thickness are normal. ??There are no masses. ?? There is no hydronephrosis or renal calculi. ? Left Kidney: ??The left kidney measures 15.3 x 7.7 x 6.2 cm. ??Renal ?? parenchymal echotexture and thickness are normal. ??There are no masses. ?? There is no hydronephrosis or renal calculi. ? US/US renal BI ?? IMPRESSION: ? Unremarkable renal ultrasound. ? Electronically signed by: ??Chuck Radford MD ??08/22/2024 11:46 AM EDT ? Dictated By: ?Chuck Radford MD ? Signed By: ?<Electronically signed by Chuck Radford MD in OV> ?08/22/24 1146 ? DD/ 1130 ? TD/TT: 08/22/24 1134 ? Kiln Door Repairer: ? Procedure Note Nick Banegas - 08/22/[address] [address] Ultrasound Report Signed Patient: Gallo SainiMR#: [id number] : 1970Acct:[id number] Age/Sex: 53 / MADM Date: 08/22/24 Loc: HO.US Attending Dr: Brandon Hernandez MD Ordering Physician: Brandon Hernandez MD Date of Service: 08/22/24 Procedure(s): US renal BI Accession Number(s): [id number] cc: Brandon Hernandez MD; Milena Shoemaker MD EXAMINATION: US KIDNEY BILATERAL HISTORY: I10 - Essential (primary) hypertension TECHNIQUE: Real-time grayscale ultrasound imaging of the kidneys was performed and images were reviewed. COMPARISON: There are no prior studies for comparison. FINDINGS: Right kidney: The right kidney measures 14.2 x 6.1 x 6.6 cm. Renal parenchymal echotexture and thickness are normal. There are no masses. There is no hydronephrosis or renal calculi. Left Kidney: The left kidney measures 15.3 x 7.7 x 6.2 cm. Renal parenchymal echotexture and thickness are normal. There are no masses. There is no hydronephrosis or renal calculi. US/US renal BI IMPRESSION: Unremarkable renal ultrasound. Electronically signed by: Chuck Radford MD 08/22/2024 11:46 AM EDT RP Dictated By: Chuck Radford MD Signed By: <Electronically signed by Chuck Radford MD in OV> 08/22/24 1146 DD/ 1130 TD/TT: 08/22/24 1134 Kiln Door Repairer: us [facility] External Provider IMG US PROCEDURES Final Result * CBC (06/25/2024 3:11 PM EST) White Blood Count 10.4 4.8 - 10.8 X10*3/uL [facility] Red Blood Count 5.14 4.60 - 5.80 X10*6/uL [facility] Hemoglobin 14.3 14.0 - 18.0 g/dl [facility] Hematocrit 43.4 42.0 - 52.0 % [facility] Mean Corpuscular Volume 84.4 80.0 - 98.0 fL [facility] Mean Corpuscular Hemoglobin 27.8 27.0 - 33.0 pg [facility] Mean Corpuscular HGB Conc 32.9 31.0 - 36.0 g/dl [facility] Red Cell Distribution Width 13.7 11.0 - 16.0 % [facility] Platelet Count 318 160 - 400 X10*3/uL [facility] Mean Platelet Volume 9.4 9.4 - 12.4 fL [facility] NRBC Pct Auto 0.0 0.0 - 0.2 /100WBC [facility] NRBC Abs Auto 0.000 0.0 - 0.012 X10*3/uL [facility] 06/25/2024 3:11 PM EST 06/25/2024 3:11 PM EST us Generic External Data Provider LAB BLOOD ORDERAB LES Final Result [facility] [address] [place] [phone] * (ABNORMAL) Comprehensive Metabolic Panel (06/25/2024 3:11 PM EST) Sodium 139 135 - 145 mmol/L [facility] Potassium 4.3 3.3 - 5.1 mmol/L [facility] Comment:Slight Hemolysis.Int erpret result with caution. Chloride 108 96 - 108 mmol/L [facility] Carbon Dioxide 24 22 - 29 mmol/L [facility] Anion Gap 11(L) 12 - 20 [facility] Urea Nitrogen (BUN) 16 9 - 16 mg/dL [facility] Creatinine, Serum 0.82 0.5 - 1.4 mg/dL [facility] Estimated Glomerular Filt Rate >60 [facility] Comment:Chronic Kidney Disea se: Estimated GFR < 60 mL/min/1.53v8Zhaadd Kidney Disease: Estimated GFR < 15 mL/min/1.73m2 Glucose 153(H) 60 - 115 mg/dL [facility] Calcium 9.0 8.4 - 10.2 mg/dL [facility] Bilirubin, Total 0.6 0.0 - 1.0 mg/dL [facility] Aspartate Amino Transferase 28 5 - 37 U/L [facility] Comment:Slight Hemolysis.Int erpret result with caution. Alanine Aminotransferase 18 0 - 40 U/L [facility] Total Protein 7.1 6.5 - 8.0 g/dL [facility] Albumin Level 3.3(L) 3.5 - 5.0 g/dL [facility] Alkaline Phosphatase 114 39 - 117 U/L [facility] 06/25/2024 3:11 PM EST 06/25/2024 3:11 PM EST Generic External Data Provider LAB BLOOD ORDERAB LES Final Result Performing Organization Address [facility] Co de Phone Number [facility] [address] [place] [phone] * (ABNORMAL) Urine Protein, Total, Random without Creatinine (06/25/2024 3:06 PM EST) Protein, Total, Random Urine 640(H) <12 mg/dL [facility] Comment:Verified by dilution 06/25/2024 3:06 PM EST 06/25/2024 3:41 PM EST Generic External Data Provider LAB URINE ORDERAB LES Final Result Performing Organization Address [facility] de Phone Number [facility] [address] [place] [address] [phone] * Creatinine, Random Urine (06/25/2024 3:06 PM EST) Creatinine, Urine 78.85 mg/dL [facility] 06/25/2024 3:06 PM EST 06/25/2024 3:41 PM EST Generic External Data Provider LAB URINE ORDERAB LES Final Result Performing Organization Address [facility] de Phone Number [facility] [address] [place] [phone] * (ABNORMAL) Urinalysis Complete (06/25/2024 3:06 PM EST) Color Urine Yellow [facility] Appearance Urine Clear [facility] PH 6.5 5.0 - 9.0 [facility] Glucose Urine UA 100(A) Negative mg/dL [facility] Urine Blood Moderate (2+)(A) Negative [facility] Specific [place] - Urine 1.020 1.005 - 1.025 [facility] Urine Protein >=1000 (4+)(A) Neg-Trace mg/dL [facility] Urine Ketones Negative Negative mg/dL [facility] Nitrite Urine Negative Negative [facility] Leukocyte Esterase Urine Negative Negative [facility] RBC Urine >20(A) 0 - 2 /HPF [facility] Urine WBC 0-5 0 - 5 /HPF [facility] Urine Squamous Epithelial Cell 0-2 0 - 2 /HPF [facility] Urine Bacteria None Seen None Seen [facility] Hyaline Casts, Urine 0-2 0 - 2 /LPF [facility] 06/25/2024 3:06 PM EST 06/25/2024 3:41 PM EST us Generic External Data Provider LAB URINE ORDERAB LES Final Result Performing Organization Address City/State/[facility] Co de Phone Number [facility] [address] [place] [phone] * POCT REMI-14 Urine Drug Screen (06/14/2024 8:47 AM EST) [facility] THC Positive Oxycodone Screen, Urine Positive Urine Urine specimen obtained by clean catch procedure / Unknown 06/14/2024 8:47 AM EST Narrative Luma Dalton RN - 06/14/2024 8:47 AM EST Lot# [id number] Exp: 05-19-25 us Milena Shoemaker MD POINT OF CARE TEST ENTER/EDIT ORDERABLES Final Result * (ABNORMAL) POCT HGB A1C (04/20/2024 1:24 PM EST) Hemoglobin A1C 8.5(A) 4.0 - 6.0 % QC Media Lot # [id number] Lot# Expiration Date [id number] Blood 04/20/2024 1:24 PM EST Result [facility] Milena Shoemaker MD POINT OF CARE TEST ENTER/EDIT ORDERABLES Final Result * Lipid Panel, Standard (07/16/2022 10:33 AM EST) Pathologist [facility] Cholesterol, Total 115 <200 mg/dL [employer] HDL Cholesterol 42 > OR = 40 mg/dL [employer] [place] [employer] Triglycerides 106 <150 mg/dL [employer] [place] [employer] LDL Cholesterol 54 mg/dL (calc) [employer] [place] [employer] Comment: Reference range: <100 Desirable range <100 mg/dL for primary prevention; ?? <70 mg/dL for patients with CHD or diabetic patients with > or = 2 CHD risk factors. LDL-C is now calculated using the Alvino-Pako calculation, which is a validated novel method providing better accuracy than the Friedewald equation in the estimation of LDL-C. Alvino SS et al. KIRSTEN. 2013;310(19): 7008-0964 (http://education.el?/faq/FPJ431) Chol/HDLC Ratio 2.7 <5.0 (calc) [employer] [place] [employer] Non-HDL Cholesterol 73 <130 mg/dL (calc) [employer] [place] [employer] Comment: For patients with diabetes plus 1 major ASCVD risk factor, treating to a non-HDL-C goal of <100 mg/dL (LDL-C of <70 mg/dL) is considered a therapeutic option. Blood Venous blood specimen / Unknown 07/16/2022 10:33 AM EST 07/16/2022 10:33 AM EST Narrative [facility] - 07/16/2022 7:44 PM EST FASTING:NO FASTING: NO Milena Shoemaker MD LAB BLOOD ORDERABLES Final Re sult [facility] [address] [place] [phone] [facility] [address] [facility], ([address]) [place] [phone] from Last 3 Months or Most Recently Relevant to Health Maintenance Insurance MEDICARE Member Subscriber Plan / Payer (Ef fective 2023-Present) Name:Gallo Saini Member ID:[id number] Relation to Subscriber:Self Name:Yeny Gallo Subscriber ID:[id number] Payer ID:STATE Group ID:Not on file Type:Medicare Address: [facility] [address] [phone] [facility] STANDARD DENTAL-[facility] MEDICAID STAND ADULT Care Teams [employer]ing Mill Supervisor Relationship Specialty Start Date End Date Milena Shoemaker MD [address] [place] [address] PCP - General Family Medicine 08/12/22 Maria G Sellers CNP Psychiatrist 02/23/23
--- OUTSIDE RECORDS SUMMARY | 2024-08-22 13:24 | XMS_ITS | Encounter Summary ---
Author Organization [employer] Address [address] [place] [address] Care Team Providers Care Film Processing Utility Worker Name Role Phone Milena Shoemaker MD Primary Care Provider [phone] Encounter Details Date Type Department Care Team (Late st Contact Info) Description 08/22/2024 Orders Only [facility] External Provider, [facility] Social History Tobacco Use Types Packs/Day Years Used Date Smoking Tobacco: Every Day Cigarettes Passive Smoke Exposure: Past Smokeless Tobacco: Never Alcohol Use Standard Drinks/Week Comments Never 0 (1 standard drink = 0.6 oz pur e alcohol) Depression Answer Date Recorded Patient Health Questionnaire-9 Score 7 07/15/2022 Housing Stability Answer Date Recorded What is your housing situation today? I have anselmo harshil 08/11/[address] you li [...] Upcoming Encounters Date Type Department Care Team ([facility] st Contact Info) Description 09/05/2024 9:30 AM EDT Clinical Support [facility] [address] [place] [address] Luam Dalton, RN [address] [place] [address] documented as of this encounter Procedures Procedure Name Priority Date/Time Associated Diagnosis Comments US RENAL BI Routine 08/22/2024 11:30 AM EDT documented in this encounter Results * US RENAL BI (08/22/2024 11:30 AM EDT) Anatomical Region Laterality Modality Abdomen Ultrasound 08/22/2024 11:3 0 AM EDT Narrative 08/22/2024 11:49 AM EDT ? [facility] ?[address] ?[place] [address] ? Ultrasound Report ? Signed ? Patient: Gallo Saini ?MR#: [id number] ?? [id number] ? : 1970 ?Acct:[id number] ? Age/Sex: 53 / M ?ADM Date: 08/22/24 ? Loc: HO.US ? Attending Dr: Brandon Hernandez MD ? Ordering Physician: Brandon Hernandez MD ?? Date of Service: 08/22/24 ?? Procedure(s): US renal BI ?? Accession Number(s): [id number] ? cc: Brandon Hernandez MD; Milena Shoemaker [...] DD/ 1130 ? TD/TT: 08/22/24 1134 ? Console Assembler: ? Procedure Note Donotuseinterpreter, Image - 08/22/2024 [place] [address] Ultrasound Report Signed Patient: Lali Saini#: [id number] : 1970Acct:[id number] Age/Sex: 53 / MADM Date: 08/22/24 Loc: HO.US Attending Dr: Brandon Hernandez MD Ordering Physician: Brandon Hernandez MD Date of Service: 08/22/24 Procedure(s): US renal BI Accession Number(s): [id number] cc: Brandon Hernandez MD; Milena Sohemaker MD EXAMINATION: US KIDNEY BILATERAL HISTORY: I10 [...] 08/22/24 1146 DD/ 1130 TD/TT: 08/22/24 1134 Console Assembler: [facility] External Provider IMG US PROCEDURES Final Result documented in this encounter Visit Diagnoses Not on filedocumented in this encounter Additional Health Concerns Assessment Noted Time PHQ-9 Depression Total Score: 7 07/15/19 23 1:17 PM EST documented as of this encounter Care Teams Film Processing Utility Worker Relationship Specialty Start Date End Date Milena Shoemaker MD [address] [place] [address] PCP - General Family Medicine 08/12/22 Maria G Sellers CNP Psychiatrist 02/23/23 documented as of this encounter
--- OUTSIDE RECORDS SUMMARY | 2024-08-22 13:24 | XMS_ITS | Encounter Summary ---
Author Organization [employer] Address [address] [facility] 7t [place] [address] Care Team Providers Care Certified Pediatric Nurse Practitioner Name Role Phone Milena Shoemaker MD Primary Care Provider [phone] Reason for Visit * Reason Comments Med Refill Encounter Details Date Type Department Care Team ([facility] st Contact Info) Description 10/18/2023 Refill [facility] CHC MED & PEDS 505 [place] [address] Milena Shoemaker MD 505 [place] [address] Diabetic ulcer of toe of left foot [...] Description 09/05/2024 9:30 AM EDT Clinical Support [facility] CHC MED & PEDS 505 [place] [address] Luma Dalton, LUIS 505 [place] [address] documented as of this encounter Visit Diagnoses Diagnosis 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
--- OUTSIDE RECORDS SUMMARY | 2024-08-22 13:24 | XMS_ITS | Encounter Summary ---
Author Organization [employer] Address [address] [facility] 7t [place] [address] Care Team Providers Care Sheet Pile Driver Operator Name Role Phone Milena Shoemaker MD Primary Care Provider [phone] Reason for Visit * Reason Comments Med Refill Encounter Details Date Type Department Care Team ([facility] st Contact Info) Description 08/30/[address] [facility] CHC MED & PEDS 505 [place] [address] Milena Shoemaker MD 505 [place] [address] Chronic midline low back pain without sciatica [...] PM EDT This is a not a alf medication this is for short term, at [...] 9:30 AM EDT Clinical Support [facility] MED & PEDS 505 [place] [address] Luma Dalton, LUIS 505 [place] [address] documented as of this encounter Visit Diagnoses Diagnosis Chronic midline low back pain without sciatica documented in this encounter Additional Health Concerns Assessment Noted Time PHQ-9 Depression Total Score: 7 07/15/19 23 1:17 PM EST documented as of this encounter Care Teams Sheet Pile Driver Operator Relationship Specialty Start Date End Date Milena Shoemaker MD 230 [place] [address] PCP - General Family Medicine 08/12/22 Maria G Sellers CNP Psychiatrist 02/23/23 documented as of this encounter
--- OUTSIDE RECORDS SUMMARY | 2024-08-22 13:24 | XMS_ITS | Encounter Summary ---
Author Organization [employer] Address [address] [facility] [address] 7t [place] [address] Care Team Providers Care Structural Designer Name Role Phone Milena Shoemaker MD Primary Care Provider [phone] Reason for Visit * Reason Onset Date Comments Call Back Request 12/23/2023 Encounter Details Date Type Department Care Team ([facility] Contact Info) Description 12/23/2023 Telephone [facility] MEDICINE 230 [place] [address] Milena Shoemaker MD 505 [place], [place] [phone] Call Back Request Social History Tobacco Use [...] t he electric, gas, oil or water [employer] threatened to shut off services in your [...] increased to 75 mg and not to chart picker the 100 mg. Pt verbalized understanding and [...] 9:30 AM EDT Clinical Support [facility] MED & PEDS 505 [place] [address] Luma Dalton, RN 505 [place] [address] documented as of this encounter Visit Diagnoses Not on filedocumented in this encounter Additional Health Concerns Assessment Noted Time PHQ-9 Depression Total Score: 7 07/15/19 23 1:17 PM EST documented as of this encounter Care Teams Structural Designer Relationship Specialty Start Date End Date Milena Shoemaker MD 230 [place] [address] PCP - General Family Medicine 08/12/22 Maria G Sellers CNP Psychiatrist 02/23/23 documented as of this encounter
--- OUTSIDE RECORDS SUMMARY | 2024-08-22 13:24 | XMS_ITS | Clinical Summary ---
Author Organization [facility] Address [address] [place] [address] Phone Care Team Providers Care Pipe Cutter Name Role Phone Milena Shoemaker MD Primary Care Provider [phone] Social History Tobacco Use Types Packs/Day Years Used Date Smoking Tobacco: Never Assessed Sex and Gender Information Value Date Recorded Sex Assigned at Not on file Legal Sex Male 9:19 AM EST Gender Identity Not on file Sexual Orientation Not on file Plan of Treatment Upcoming Encounters Date Type Department Care Team ([facility] Contact Info) Description 08/30/2024 9:00 AM EDT Office Visit Orthopedic Surgery - [place] [address] [address] Carlos Alberto Alatorre, DPM [address] [address] Health Maintenance Due Date Last Done Comments [...] Insurance MEDICARE MEDICAID - [place] Care Teams Pipe Cutter Relationship Specialty Start Date End Date Milena Shoemaker MD [address] [place] [address] PCP - General Family Medicine 05/02/24
--- OUTSIDE RECORDS SUMMARY | 2024-08-22 13:24 | XMS_ITS | Encounter Summary ---
Author Organization [employer] Address [address] [facility] 7t [place] [address] Care Team Providers Care Technologist Infectious Disease Name Role Phone Milena Shoemaker MD Primary Care Provider Encounter Details Date Type Department Care Team ([facility] st Contact Info) Description 12/23/2023 Orders Only [facility] CHC MED & PEDS 505 [place], [place] [phone] Johanna Camargo MD 505 [place] [address] Primary hypertension (Primary Dx) Social History Tobacco [...] [facility] 505 [place] [address] Luma Dalton, LUIS 505 [place] [address] documented as of this encounter Visit Diagnoses Diagnosis Primary hypertension- Primary Unspecified essential hypertension documented in this encounter Additional Health Concerns Assessment Noted Time PHQ-9 Depression Total Score: 7 07/15/19 23 1:17 PM EST documented as of this encounter Care Teams Technologist Infectious Disease Relationship Specialty Start Date End Date Milena Shoemaker MD 230 [place] [address] PCP - General Family Medicine 08/12/22 Maria G Sellers CNP Psychiatrist 02/23/23 documented as of this encounter
--- OUTSIDE RECORDS SUMMARY | 2024-08-22 13:24 | XMS_ITS | Encounter Summary ---
Author Organization [employer] Address [address] [facility] 7t [place] [address] Care Team Providers Care Relationship Specialist Name Role Phone Milena Shoemaker MD Primary Care Provider [phone] Reason for Visit * Reason Comments Med Refill Encounter Details Date Type Department Care Team ([facility] st Contact Info) Description 01/23/[address] [facility] CHC MED & PEDS 505 [place], [place] [phone] Olivia Garcia MD 505 [place] [address] Chronic midline low back pain without sciatica [...] t he electric, gas, oil or water [employer] threatened to shut off services in your [...] Description 09/05/2024 9:30 AM EDT Clinical Support [facility] MED & PEDS 505 [place] [address] Luma Dalton, LUIS 505 [place] [address] documented as of this encounter Visit Diagnoses Diagnosis Chronic midline low back pain without sciatica documented in this encounter Additional Health Concerns Assessment Noted Time PHQ-9 Depression Total Score: 7 07/15/19 23 1:17 PM EST documented as of this encounter Care Teams Relationship Specialist Relationship Specialty Start Date End Date Milena Shoemaker MD 230 [place] [address] PCP - General Family Medicine 08/12/22 Maria G Sellers CNP Psychiatrist 02/23/23 documented as of this encounter
--- OUTSIDE RECORDS SUMMARY | 2024-08-22 13:24 | XMS_ITS | Encounter Summary ---
Author Organization [employer] Address [address] [facility] 7t [place] [address] Care Team Providers Care Logistics Intern Name Role Phone Milena Shoemaker MD Primary Care Provider [phone] Reason for Visit * Reason Comments Med Refill Encounter Details Date Type Department Care Team ([facility] st Contact Info) Description 06/01/2023 Refill [facility] CHC MED & PEDS 505 [place], [place] [phone] Milena Shoemaker MD 505 [place] [address] Chronic midline low back pain without sciatica Social History Tobacco Use Types Packs/Day Years Used Date Smoking Tobacco: Every Day Cigarettes Smokeless Tobacco: Never Alcohol Use Standard Drinks/Week Comments Never 0 (1 standard drink = 0.6 oz pur e alcohol) Depression Answer Date Recorded Patient Health Questionnaire-9 Score 7 07/15/2022 Housing Stability Answer Date Recorded What is your housing situation today? I have anselmorima chua 03/28/[address] you [...] Upcoming Encounters Date Type Department Care Team ([facility] st Contact Info) Description 09/05/2024 9:30 AM EDT Clinical Support [facility] MED & PEDS 505 [place] [address] Luma Dalton RN 505 [place] [address] documented as of this encounter Visit Diagnoses Diagnosis Chronic midline low back pain without sciatica documented in this encounter Additional Health Concerns Assessment Noted Time PHQ-9 Depression Total Score: 7 07/15/19 1:17 PM EST documented as of this encounter Care Teams Logistics Intern Relationship Specialty Start Date End Date Milnea Shoemaker MD 230 [place] [address] PCP - General Family Medicine 08/12/22 Maria G Sellers CNP Psychiatrist 02/23/23 documented as of this encounter
--- OUTSIDE RECORDS SUMMARY | 2024-08-22 13:24 | XMS_ITS | Encounter Summary ---
Author Organization [facility] Address [address] [place] [address] Phone Care Team Providers Care Wool Sacker Name Role Phone Milena Shoemaker MD Primary Care Provider [phone] Encounter Details Date Type Department Care Team (Late st Contact Info) Description 11/05/2022 Documentation Only [facility] [address] [place] [address] Milena Shoemaker MD 505 [place], [place] [phone] Social History Tobacco Use Types Packs/Day Years [...] on filedocumented in this encounter Care Teams Wool Sacker Relationship Specialty Start Date End Date Milena Shoemaker MD 505 [place], [place] [phone] PCP - General Family Medicine 11/05/22 documented as of this encounter
--- OUTSIDE RECORDS SUMMARY | 2024-08-22 13:24 | XMS_ITS | Encounter Summary ---
Author Organization [employer] Address [address] [facility] 7t [place] [address] Care Team Providers Care Motor And Chassis Inspector Name Role Phone Milena Shoemaker MD Primary Care Provider [phone] Reason for Visit * Reason Onset Date Comments Med Refill 08/15/2024 Encounter Details Date Type Department Care Team ([facility] st Contact Info) Description 08/15/[address] [facility] CHC MED & PEDS 505 [place], [place] [phone] Avila Cee MD 505 [place] [address] Chronic midline low back pain without sciatica [...] 09/05/2024 9:30 AM EDT Clinical Support [facility] MED & PEDS 505 [place] [address] Luma Dalton, LUIS 505 [place] [address] documented as of this encounter Visit Diagnoses Diagnosis Chronic midline low back pain without sciatica documented in this encounter Additional Health Concerns Assessment Noted Time PHQ-9 Depression Total Score: 7 07/15/19 23 1:17 PM EST documented as of this encounter Care Teams Motor And Chassis Inspector Relationship Specialty Start Date End Date Milena Shoemaker MD 230 [place] [address] PCP - General Family Medicine 08/12/22 Maria G Sellers CNP Psychiatrist 02/23/23 documented as of this encounter
--- OUTSIDE RECORDS SUMMARY | 2024-08-22 13:24 | XMS_ITS | Encounter Summary ---
Author Organization [employer] Address [address] [facility] 7t [place] [address] Care Team Providers Care Proof Machine Operator Name Role Phone Milena Shoemaker MD Primary Care Provider [phone] Reason for Referral * Consultation (STAT) - Closed Specialty Diagnoses / Procedures Referred By Contac t Referred To Contact Diagnoses Septic arthritis of lumbar spine ([facility]/HCC) Milena Shoemaker MD [address] [place] [address] Phone: tel: fax: Myla Garza MD [address] [place] [address] Phone: tel: fax: Referral ID Status Reason Start Date Expiration Date V isits Requested Visits Authorized [id number] Closed Specialty Services Required 09/13/2023 09/12/2024 1 1 Reason for Visit * Reason Onset Date Comments Call Back Request 09/12/2023 Encounter Details Date Type Department Care Team ([facility] st Contact Info) Description 09/12/2023 Telephone [facility] MEDICINE [address] [place] [address] Milena Shoemaker MD 505 [place], [place] [phone] Call Back Request Social History Tobacco Use [...] EDT Tc to Sanna, she stated that [facility] accepted him and [facility] will handle his IV antibiotics. There is no ID referral available as no one would take the pt as stated by Sanna. Sanna is the nurse auto care center manager so is the de facto social security benefits interviewer for the pt at the hospital. Phone number for Dr. Zimmerman is [phone]. If unable to get a hold of this provider, the other provider working with Dr. Zimmerman is Dr. Beltran, number [phone]. * Telephone Encounter - Milena Shoemaker MD - 09/13/2023 2:52 PM EDT Please request Sanna to provide Dr. Zimmerman phone, he also needs a VNA agency to be setup before he goes home. Please get the social security benefits interviewer involved as this needs coordination of services [...] PM EDT Tc from Sanna at the [facility] requesting a call back to get orders for the patient to continue at home IV antibiotics if not the patient would have stay in the hospital to finish the process please call Sanna at [phone] Ext. [phone] documented in this encounter Plan of Treatment Upcoming Encounters Date Type Department Care Team (Late st Contact Info) Description 09/05/2024 9:30 AM EDT Clinical Support [facility] MED & PEDS 505 [place] [address] Luma Dalton, RN 505 [place] [address] Scheduled Referrals Name Type Priority Associated Diagnoses [...] documented as of this encounter Care Teams Proof Machine Operator Relationship Specialty Start Date End Date Milena Shoemaker MD [address] [place] [address] PCP - General Family Medicine 08/12/22 Maria G Sellers CNP Psychiatrist 02/23/23 documented as of this encounter
--- OUTSIDE RECORDS SUMMARY | 2024-08-22 13:24 | XMS_ITS ---
Author Name [facility] Unknown Encounters Encounter Type Encounter Reason Primary Diagnosis Location Date Inpatient Other infective spondylopathies, site unspecified Other infective spondylopathies, site unspecified [facility]23 Ambulatory [place] [facility] 08/30/2023 Care Team Organization Name Specialty Phone Email Start Date End Da te [place] Cognitive Code [facility] 08/31/2023 [facility] 08/30[facility]2023 [facility]
--- OUTSIDE RECORDS SUMMARY | 2024-08-22 13:24 | XMS_ITS | Encounter Summary ---
Author Organization [employer] Address 75 [facility] 7t [place] [address] Care Team Providers Care Signaling Design Engineer Name Role Phone Milena Shoemaker MD Primary Care Provider [phone] Reason for Visit * Reason Onset Date Comments Hospital Follow-up 09/23/2023 Encounter Details Date Type Department Care Team ([facility] Contact Info) Description 09/23/2023 Telephone [facility] CHC MED & PEDS 505 [place], [place] [phone] Milena Shoemaker MD 505 [place] [address] Hospital Follow-up Social History Tobacco Use Types [...] the past 12 months, has t he [employer], gas, oil or water company threatened to [...] from pt requesting a HDF appt. [facility] [place] [facility] Date of admission: unknown Discharge date: 09/15 Diagnosed: Septic arthritis of vertebra and ID Please contact pt at [phone] documented in this encounter Plan of Treatment Upcoming Encounters Date Type Department Care Team (Late st Contact Info) Description 09/05/2024 9:30 AM EDT Clinical Support [facility] MED & PEDS 505 [place] [address] Luma Dalton, RN 505 [place] [address] documented as of this encounter Visit Diagnoses Not on filedocumented in this encounter Additional Health Concerns Assessment Noted Time PHQ-9 Depression Total Score: 7 07/15/19 23 1:17 PM EST documented as of this encounter Care Teams Signaling Design Engineer Relationship Specialty Start Date End Date Milena Shoemaker MD [address] [place] [address] PCP - General Family Medicine 08/12/22 Maria G Sellers CNP Psychiatrist 02/23/23 documented as of this encounter
--- OUTSIDE RECORDS SUMMARY | 2024-08-22 13:24 | XMS_ITS | Encounter Summary ---
Author Organization [employer] Address [address] [facility] 7t [place] [address] Care Team Providers Care Clinic Receptionist Name Role Phone Milena Shoemaker MD Primary Care Provider [phone] Reason for Visit * Reason Comments Med Refill Encounter Details Date Type Department Care Team ([facility] st Contact Info) Description 08/14/2024 Refill [facility] CHC MED & PEDS 505 [place], [place] [phone] Avila Cee MD 505 [place] [address] Chronic midline low back pain without sciatica [...] 9:30 AM EDT Clinical Support [facility] MED & PEDS 505 [place] [address] Luma Dalton, LUIS 505 [place] [address] documented as of this encounter Visit Diagnoses Diagnosis Chronic midline low back pain without sciatica documented in this encounter Additional Health Concerns Assessment Noted Time PHQ-9 Depression Total Score: 7 07/15/19 23 1:17 PM EST documented as of this encounter Care Teams Clinic Receptionist Relationship Specialty Start Date End Date Milena Shoemaker MD [address] [place] [address] PCP - General Family Medicine 08/12/22 Maria G Sellers CNP Psychiatrist 02/23/23 documented as of this encounter
--- OUTSIDE RECORDS SUMMARY | 2024-08-22 13:24 | XMS_ITS | Clinical Summary ---
Author Organization [facility] Address [address] [address] Care Team Providers Care Computer Clerk Name Role Phone Milena Shoemaker MD Primary Care Provider [phone] Social History Tobacco Use Types Packs/Day Years [...] topic Insurance MEDICARE MEDICAID [place] Care Teams Computer Clerk Relationship Specialty Start Date End Date Milena Shoemaker MD [address] [place] [address] PCP - General Family Medicine 11/05/22
--- OUTSIDE RECORDS SUMMARY | 2024-08-22 13:24 | XMS_ITS | Encounter Summary ---
Author Organization [employer] Address [address] [facility] 7t [place] [address] Care Team Providers Care Epidemiology Intern Name Role Phone Milena Shoemaker MD Primary Care Provider [phone] Reason for Visit * Reason Onset Date Comments Med Refill 03/01/2024 Encounter Details Date Type Department Care Team ([facility] st Contact Info) Description 03/01/2024 Telephone [facility] CHC MED & PEDS 505 [place] [address] Milena Shoemaker MD 505 [place] [address] Med Refill Social History Tobacco Use Types [...] 10 MG tablet To be sent to: [facility] - [place], [place] - [address] [place] [address] documented in this encounter Plan of Treatment Upcoming Encounters Date Type Department Care Team (Late st Contact Info) Description 09/05/2024 9:30 AM EDT Clinical Support [facility] MED & PEDS 505 [place] [address] Luma Dalton, LUIS 505 [place] [address] documented as of this encounter Visit Diagnoses Not on filedocumented in this encounter Additional Health Concerns Assessment Noted Time PHQ-9 Depression Total Score: 7 07/15/19 23 1:17 PM EST documented as of this encounter Care Teams Epidemiology Intern Relationship Specialty Start Date End Date Milena Shoemaker MD [address] [place] [address] PCP - General Family Medicine 08/12/22 Maria G Sellers CNP Psychiatrist 02/23/23 documented as of this encounter
--- OUTSIDE RECORDS SUMMARY | 2024-08-22 13:24 | XMS_ITS | Clinical Summary ---
Author Organization [facility] Address [address] [place] [address] Care Team Providers Care Data Entry Machine Operator Name Role Phone Milena Shoemaker MD Primary Care Provider Allergies Active Allergy Reactions Criticality Noted Date [...] drink = 0.6 oz pur e alcohol) [facility] Utilities Answer Date Recorded In the past 12 months has e [employer], [employer], oil, or water [employer] threatened to shut off services in your [...] place to sleep or slept in a chcf (including now)? No 08/31/2023 Sex and Gender [...] - 99 mg/dL 09/16/2023 5:57 AM EDT [facility] Comment:Fasting: <100 mg/dL, Non-Fasting: <200 mg/dL (ADA 2005) Blood Urea Nitrogen (BUN) 23(H) 8 - 21 mg/dL 09/16/2023 5:57 AM EDT [facility] Creatinine 1.2 0.5 - 1.3 mg/dL 09/16/2023 5:57 AM EDT [facility] eGFR 74 >59 09/16/2023 5:57 AM EDT [facility] Comment:CKD-EPI (2020) in mL /min/1.73 sq meters. Sodium 138 136 - 145 mmol/L 09/16/2023 5:57 AM EDT [facility] Potassium 3.8 3.4 - 5.3 mmol/L 09/16/2023 5:57 AM EDT [facility] Chloride 101 98 - 107 mmol/L 09/16/2023 5:57 AM EDT [facility] CO2 27 22 - 33 mmol/L 09/16/2023 5:57 AM EDT [facility] Anion Gap 10 7 - 17 09/16/2023 5:57 AM EDT [facility] Calcium 8.8 8.7 - 10.5 mg/dL 09/16/2023 5:57 AM EDT [facility] BUN/Creatinine Ratio 19 10.0 - 25.0 Ratio 09/16/2023 5:57 AM EDT [facility] Blood specimen (specimen) (Plasma/Serum) 09/16/2023 5:08 AM EDT 09/16/2023 5:32 AM EDT Yareli Mccoy MD [place] [address], [address] [address] from Last 3 Months or Most Recently Relevant to Health Maintenance Advance Directives * Full Code (Latest Code Status on File) Date Activated Date Inactivated Comments 08/30/2023 11:42 PM Question Answer Comments Decision Thoroughly Discussed with: Patient Care Teams Data Entry Machine Operator Relationship Specialty Start Date End Date Milena Shoemaker MD [address] [place] [address] PCP - General Family Medicine 08/30/23
--- OUTSIDE RECORDS SUMMARY | 2024-08-22 13:24 | XMS_ITS | Encounter Summary ---
Author Organization [employer] Address [address] [facility] [address] [place] [address] Care Team Providers Care Manager Of Revenue Name Role Phone Milena Shoemaker MD Primary Care Provider [phone] Reason for Visit * Reason Comments Med Refill Encounter Details Date Type Department Care Team ([facility] st Contact Info) Description 12/10/2023 Refill [facility] MED [facility] PEDS [address] [place] [address] Milena Shoemaker MD [address] [place] [address] Social History Tobacco Use Types Packs/Day Years [...] Description 09/05/2024 9:30 AM EDT Clinical Support [facility] MED & PEDS [address] [place] [address] Luma Dalton, LUIS [address] [place] [address] documented as of this encounter Visit Diagnoses Not on filedocumented in this encounter Additional Health Concerns Assessment Noted Time PHQ-9 Depression Total Score: 7 07/15/19 23 1:17 PM EST documented as of this encounter Care Teams Manager Of Revenue Relationship Specialty Start Date End Date Milena Shoemaker MD [address] [place] [address] PCP - General Family Medicine 08/12/22 Maria G Sellers CNP Psychiatrist 02/23/23 documented as of this encounter
--- OUTSIDE RECORDS SUMMARY | 2024-08-22 13:24 | XMS_ITS | Encounter Summary ---
Author Organization [employer] Address [address] [facility] [address] [place] [address] Care Team Providers Care Exhibit Technician Name Role Phone Milena Shoemaker MD Primary Care Provider [phone] Reason for Visit * Reason Onset Date Comments Med Refill 04/10/2024 Encounter Details Date Type Department Care Team ([facility] st Contact Info) Description 04/10/2024 Refill [facility] MED & PEDS [address] [place], [place] [phone] Milena Shoemaker MD [address] [place] [address] Chronic midline low back pain without sciatica [...] Description 09/05/2024 9:30 AM EDT Clinical Support [facility] MED & PEDS [address] [place] [address] Luma Dalton, LUIS [address] [place] [address] documented as of this encounter Visit Diagnoses Diagnosis Chronic midline low back pain without sciatica documented in this encounter Additional Health Concerns Assessment Noted Time PHQ-9 Depression Total Score: 7 07/15/19 23 1:17 PM EST documented as of this encounter Care Teams Exhibit Technician Relationship Specialty Start Date End Date Milena Shoemaker MD [address] [place] [address] PCP - General Family Medicine 08/12/22 Maria G Sellers CNP Psychiatrist 02/23/23 documented as of this encounter
--- OUTSIDE RECORDS SUMMARY | 2024-08-22 13:24 | XMS_ITS | Data Portability ---
Author Organization DAPHNIE Vale [facility], [address] Address [address] [place] [address] Assessment No assessment recorded. Plan of Treatment Reminders Order Date Submit Date Provider Last Modified By Organization Details Last Modified Time Details Appointments None recorded . Lab rapid strep group A, throat 2022 023 [facility], [address] [place] [address], [place], [address], 3 10:14:47 streptoc occus group A, culture, throat 2022 023 S[facility] ([facility], [address] [place] [address], [place], [address], 3 10:06:02 Referral orthoped ic surgeon referral - left shoulder pain on/off x 1 year. failing conserva tive treatmen t . need further evaluati on and treatmen t. 2022 023 d[facility] 1 [facility] (Nick Hawley), [address] [place], [address], 3 08:11:58 Procedures None recorded . Surgeries None recorded . Imaging XR, shoulder , 2 or more view 2022 023 [employer] [facility], [address] [place] [address], [place], [address], 3 11:27:21 Medication Orders Allergy Relief (flutica sone) 50 mcg/actu ation nasal spray,moss spension 2022 023 [facility]armacy #[id number], [address] [place], [address], 3 10:54:46 predniso ne 10 mg tablet 2021 022 [facility] #[id number], [address] [place] [address], [address], 3 09:36:41 albutero l sulfate HFA 90 mcg/actu ation aerosol inhaler 2021 022 [facility]/Pharmacy #[id number], [address] [place], [address], 2 10:13:25 amoxicil quirino 875 mg-potas sium clavulan ate 125 mg tablet 2021 022 [id number], [address] [place] [address], [address], 3 09:35:58 loratadi ne 10 mg tablet [email or web address]/Pharmacy #[id number], [address] [place] [address], [address], 3 09:36:29 Patient TargetsNo targets recorded. Patient Instructions Encounter Date Encounter Id Patient Instructions Last Modified By Organization Details Last Modified Time 05/18/2022 [id number] controlling your asthma: care instructions [email or web address] Not available 05/18/2022 10:13:20 Acute Sinusitis: Care Instructions [email or web address] Not available 05/18/2022 10:13:20 Based on your [...] watery post nasal drip. 6. Saline Nasal [place] is recommended. Since an antibiotic was prescribed [...] notice immediate response. Thank you for using [facility] today, please feel free to contact our office if you have any questions or concerns. Not available 05/18/2022 10:12:56 07/08/2022 [id number] shoulder pain: c are instructions Not available [...] care for yourself at home? Take an uqct-oby-fghjxqb pain medicine. Avoid Ibuprofen, Aleve and Aspirin if . If the doctor prescribed antibiotics, take them as directed. Do not stop taking them just because you feel better. You need to take the full course of antibiotics. Be careful when taking zncr-pqg-mjoclrt cold or influenza (flu) medicines and Tylenol [...] your doctor if you can take an exnd-fmz-oczofro medicine. Do not take two or more [...] Range : Negat lala Not Available [facility] ([facility]) [address] [facility], [place], [address], 07/11/2022 10:06:02 07/08/19 23 07/08/2022 rapid strep group A, throa t Unknown Analyte Normal = Negati ve Not Available [facility] [place], [address], 07/08/2022 09:31:24 07/08/19 23 07/08/2022 rapid strep group A, throa t Unknown Analyte negati ve Not Available [facility] [address] [place], [address], 07/08/2022 09:31:24 07/08/19 23 07/08/2022 XR, shoul flo, 2 or more view No observ ation record ed. [email or web address] [facility] [address] [facility], [place], [address], 07/08/2022 15:06:55 Result Notes None recorded. Problems Name Problem SNOMED Code Status Onset Date Resolution Date Notes Provider Name and Address Organization Details Recorded Time Asthma 890966001 Active 2021 DAPHNIE Lipscomb - [facility] 12/06/202 2 09:32:52 Hypertensive disorder 62154752 Active 2021 KATHARINA ARTEAGADC murcia, [place] - [facility] 2 09:33:10 Hyperlipidemia 12747739 Active 2021 KATHARINA ARTEAGADC null, PA - [facility] 2 09:33:19 Diabetes mellitus 14806261 Active 2021 KATHARINA ARTEAGACD null, PA - [facility] 2 09:33:30 Sleep apnea 10645675 Active 2021 KATHARINA ARTEAGADC null, PA - [...] XR, shoulder, 2 or more view completed [address] [facility] [address] [place] [address], [address], 07/08/2022 15:06:55 Procedure Notes None recorded. Medical Equipment None Reported. Allergies Allergen ID Allergen Name Allergen Category Reaction Reaction Severity Criticality Documentation Date Start Date Code Code System Note Provider Name and Address Organization Details Recorded Time 84953 cyclobenz aprine hydrochlo ride medicatio n Not available Not available Not available 05/18/2022 91365 RxNorm KATHARINA ARTEAGADC null, [place] - [facility] 2 09:22:07 64981 Seroquel medicatio n Not available Not available Not available 05/18/2022 15313 RxNorm KATHARINA ARTEAGADC null, [place] - [facility] [...] Updated DateTime 2 175.26 cm 39.9 kg/m2 617664. 94 g 97.3 [degF] 96 % 96 % 81 /min 18 /min 147 mm[Hg] 85 mm[Hg] KATHARINA Vale MD [facility] 2 09:20:52 Date Recorded Body height Pain [...] /min 18 /min 98.5 [degF] 39.3 kg/m2 504497. 85 g 155 mm[Hg] 80 mm[Hg] SALIMA [...] Recorded Time Hep B, adult 2 completed SAILMA murcia PA - [facility] 07/08/2022 09:34:59 [...] SNOMED-CT Code Diagnosis ICD10 Code Diagnosis Note [id number] DAPHNIE KWONG [address] [address] 05/18/2022 09:13:46 05/18/2022 10:21:06 Acute sinusitis 31525147 J01.90 Exacerbati on of intermittent asthma 598708498 J45.21 [id number] [place] [address] [address] 07/08/2022 08:26:49 07/08/2022 11:03:15 Acute sinusitis 66911354 J01.90 Pain of le ft shoulder joint 0236204737 5551601 M25.512 Health Concerns Section Related Observation LastModified by Organization Detai ls LastModified Time None Recorded Concern Status LastModified by Organization Details LastModified Time None Recorded Advance Directives Directive None Recorded Payers Encounter Date Sequence Insurance Name Policy Number Policy Monzon Covered Member ID Monzon Member ID Guarantor Name 05/18/2022 2 [place] [facility] Gallo Saini [id number] Gallo Saini 05/18/2022 1 [place] B-[place] [facility] Gallo Saini [id number] Gallo Saini 07/08/2022 2 [place] [facility] Gallo Saini [id number] Gallo Saini 07/08/2022 1 [place] [employer] [facility] Gallo Saini [id number] Gallo Saini Notes Date Note Type Note [...] fever. DAPHNIE KWONG [address] [place], [address], [place] - [facility] 05/18/2022 22:36:54 3 [...] Previous Treatmentnone Prior Imaging:none Chance Cortez NP [facility] [place], [address], [place] - [facility] 07/08/2022 11:02:47
== END 2024-08-22 11:21 | disposition home or self-care (01) ==
LOC: HO.US 11:20
PROVIDERS: PCP Family Medicine; Visit Provider Internal Medicine Hypertension Specialist
DX: I12.9 Hypertensive chronic kidney disease with stage 1 through stage 4 chronic kidney disease, or unspecified chronic kidney disease (principal); N18.9 Chronic kidney disease, unspecified
CPT/HCPCS: 76775

== ENCOUNTER → 2024-08-22 11:22 | Outpatient (BNV) | payer MEDICARE, MEDICAID, SELFPAY | PROVIDERS: PCP Family Medicine; Visit Provider Radiology Diagnostic Radiology | DX: I12.9 Hypertensive chronic kidney disease with stage 1 through stage 4 chronic kidney disease, or unspecified chronic kidney disease (principal); N18.9 Chronic kidney disease, unspecified | CPT/HCPCS: 76775 ==

== ENCOUNTER 2024-11-22 10:07 | Inpatient (IN) | payer MEDICARE, MEDICAID, SELFPAY ==
--- NOTE | 2024-11-22 | ECG_ITS ---
Test Reason : sob Blood Pressure : */* mmHG Vent. Rate : 85 BPM Atrial Rate : 85 BPM P-R Int : 154 ms QRS Dur : 98 ms QT Int : 374 ms P-R-T Axes : 65 49 67 degrees QTcB Int : 445 ms Normal sinus rhythm with sinus arrhythmia Normal ECG When compared with ECG of 02-Jan-2024 07:18, No significant change was found Referred By: Generic ED Physician Electronically Signed By: STEFFANIE MORSE MD
--- NOTE | ~2024-11-22 | MR_ITS ---
CLINICAL HISTORY: Right 1st toe ulcer, assess for osteomyelitis. Diabetes, hx left 1st toe amputation MR rightfoot with and without gadolinium Comparison: DX/SR - XR FOOT RT MIN 3V - 04/26/24 12:58 EST Findings: There is an ulcer just plantar to the 1st interphalangeal joint. No abscess or soft tissue gas. There is increased fluid signal in the marrow of the 1st distal phalanx on the fluid sensitive sequence with associated enhancement however there is no corresponding decreased signal on T1 images and this is favored to be reactive marrow. The cortex also appears intact on the T1 images. Tenosynovitis of the flexor hallucis longus tendon. Edema in the intermetatarsal soft tissues. No acute fracture. IMPRESSION: Signal characteristics favoring reactive marrow in the 1st distal phalanx however early/developing osteomyelitis is difficult to exclude. This document has been electronically signed by: Venkata Sesay MD on 11/22/2024 18:19:38
--- NOTE | ~2024-11-22 | MR_ITS ---
EXAM: MRI lumbar spine without and with IV contrast Contrast: 10 mL gadolinium based contrast agent TECHNIQUE: Multiplanar multisequence imaging was performed through the lumbar spine without contrast. INDICATION: Severe lower back pain radiating down the right leg, rule out osteomyelitis CONTRAST: 10 mL mL of gadolinium based contrast agent PRIOR: August 29, 2023 FINDINGS: 5 non-rib bearing lumbar segments are assumed for numbering purposes. If level specific intervention is planned, correlate with an x-ray to ensure concordant numbering. Again seen are vertebral hemangiomas within L3, L4, and L5. [place] appearing edema is noted in the deep subcutaneous soft tissues. Left para-aortic collateral vessels are present in the abdomen. The etiology is uncertain on this limited study. The termination of conus medullaris is within normal limits at the level of T12-L1. Without Contrast: T12-L1: There is no disc bulge, herniation, spinal stenosis, or foraminal narrowing. L1-L2: There is no disc bulge, herniation, spinal stenosis, or foraminal narrowing. L2-L3: There is no disc bulge, herniation, spinal stenosis, or foraminal narrowing. L3-L4: There is disc desiccation and mild circumferential broad-based disc bulge. There is mild to moderate right and mild left facet degeneration with trace fluid in the facet joints. There is no spinal stenosis. There is mild to moderate bilateral foraminal narrowing similar to the prior. There is increased signal on fluid sensitive sequences and mild enhancement of the soft tissues interposed between the spinous processes and right of midline in the multifidus muscle measuring 8 mm. L4-L5: Minimal broad-based disc bulge is again noted. There is severe right and moderate to severe left facet degeneration and trace fluid in the facet joints. There is no spinal stenosis. There is stable mild to moderate bilateral foraminal narrowing. L5-S1: There is no disc bulge, herniation, spinal stenosis, or foraminal narrowing. MR/MR lumbar spine wo/w con IMPRESSION: There is a small area of soft tissue hyperenhancement at L3-4 between the spinous processes and right of midline within multifidus muscle. This could be related to infection, inflammation, or trauma. Degenerative changes at L3-4 and L4-5 are stable. Electronically signed by: Vinny Granado MD 11/23/2024 03:26 PM EDT
--- NOTE | ~2024-11-22 | XR_ITS ---
EXAMINATION: XR TOES, RIGHT CLINICAL INFORMATION: deep wound great toe COMPARISON: April 26 2024 TECHNIQUE: 3 views of the right toes were obtained. FINDINGS: There is generalized soft tissue swelling involving the great toe and medial midfoot. Mild marginal osteophytes are evident involving the first MTP joint. Stable chronic changes are present in the midfoot with diffuse sclerosis and patchy osteopenia in the juxta articular region involving cuneiform bones and navicular bone. The joints are narrowed and slightly irregular. There is a bony fragment along the dorsal medial navicular, chronic XR/XR toe RT min 2V IMPRESSION: There is soft tissue swelling of the great toe extending into the medial midfoot. If there is skin ulceration and concern for osteomyelitis, MRI is the most sensitive modality. Increasing degenerative change in the central and medial midfoot with extensive sclerosis and subarticular degenerative cystic change and osteopenia. There is also evidence for fragmentation/debris. This could be related to diabetic neuropathy. Electronically signed by: Vinny Granado MD 11/22/2024 11:46 AM EDT
--- NOTE | ~2024-11-22 | XR_ITS ---
EXAMINATION: XR CHEST CLINICAL INFORMATION: coughing, asthma COMPARISON: January 02, 2024 TECHNIQUE: Frontal view of the chest was obtained. FINDINGS: No significant abnormality is noted involving the heart, lungs, mediastinum, bony thorax or soft tissues. XR/XR chest 1V IMPRESSION: No acute disease Electronically signed by: Vinny Granado MD 11/22/2024 11:47 AM EDT
--- NOTE | ~2024-11-22 | CT_ITS ---
EXAMINATION: CT ABDOMEN PELVIS WITH IV CONTRAST HISTORY: LLQ pain COMPARISON: Correlation is made with a renal ultrasound 08/22/2024. TECHNIQUE: CT scan of the abdomen and pelvis was performed following administration of 85 mL Omnipaque 350 using standard departmental protocol. Coronal and sagittal reformatted images were generated and reviewed. Oral contrast material was not administered at the request of the referring physician. This CT exam was performed with one or more of the following dose reduction techniques: automated exposure control, adjustment of the mA and/or kV according to patient size, use of iterative reconstruction technique. DLP: A 92 mGy-cm FINDINGS: LOWER CHEST: The visualized lung bases are clear. There is no pleural effusion. CARDIOVASCULATURE: The heart is normal in size. There is no pericardial effusion. LIVER: The liver is normal in size and contour. No liver mass is identified. The portal vein is patent. GALLBLADDER / BILE DUCTS: There is cholelithiasis.. There is no intra or extrahepatic biliary ductal dilatation. SPLEEN: The spleen is normal in size. No focal splenic lesion is identified. PANCREAS: The pancreas is unremarkable in appearance. ADRENAL GLANDS: Within normal limits. KIDNEYS/RETROPERITONEUM: No renal calculi are identified. There is no hydronephrosis. There is a 1.7 cm solid mass at the posterior aspect of the upper pole of the right kidney (series 3 image 44, and series 6 image 99). LYMPH NODES: No abdominal or pelvic lymphadenopathy. VASCULATURE: The abdominal aorta is normal in caliber. MESENTERY/PERITONEUM: No free fluid. No masses. There is no free intraperitoneal gas. STOMACH: The stomach is collapsed, limiting evaluation. SMALL BOWEL: The small bowel is normal in caliber. COLON: There is a moderate amount of stool throughout the colon. APPENDIX: Normal. URINARY BLADDER/PELVIC ORGANS: The urinary bladder is unremarkable. The prostate is normal in size. BONES / SOFT TISSUES: No suspicious bony or soft tissue abnormalities. CT/CT abdomen pelvis w IV con IMPRESSION: 1. 1.7 cm solid mass at the posterior aspect of the upper pole of the right kidney. Urologic consultation is recommended. 2. Moderate amount of stool throughout the colon. Electronically signed by: Chuck Radford MD 11/22/2024 12:46 PM EDT RP
[2024-11-22 10:13] VITALS: BP 138/78; BP 167/81; PULSE 82; PULSE 87; RESP 20; TEMP 37; O2SAT 95; O2SAT 99; BMI 40.9
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
[2024-11-22 10:52] VITALS: PULSE 82; RESP 17; O2SAT 96
[2024-11-22] MEDS: Albuterol/Iprat 2.5/0.5MG 3 ML AMPUL.NEB INHALE (10:54)
[2024-11-22] MEDS: HYDROmorphone HCl 1 MG/ML SYRINGE IVPUSH ×2 (11:04→14:15)
[2024-11-22] MEDS: Famotidine/PF 20 MG/2 ML VIAL IVPUSH (11:05)
[2024-11-22] MEDS: Piperacillin Sodium/Tazobactam 3.375 GM in 0.9 % Sodium Chloride 50 ML IV ×2 (11:05→21:40)
[2024-11-22] MEDS: ondansetron HCL 4 MG/2 ML VIAL IVPUSH (11:05)
[2024-11-22 11:08] LABS: MANUAL DIFF FLAG NO
[2024-11-22 11:17] VITALS: BP 151/76; PULSE 78; RESP 16; TEMP 36.7; O2SAT 93
[2024-11-22 11:22] LABS: C Reactive Protein 2.09 mg/dL (< or = 0.50)
[2024-11-22 11:25] LABS: Alanine Aminotransferase 14 U/L (0-40); Albumin Level 3.9 g/dL (3.5-5.0); Alkaline Phosphatase 115 U/L (39-117); Anion Gap 10 (12-20); Aspartate Amino Transferase 23 U/L (5-37); Bilirubin Total 0.7 mg/dL (0.0-1.0); Blood Urea Nitrogen 26 mg/dL (9-16); Calcium 9.6 mg/dL (8.4-10.2); Carbon Dioxide 27 mmol/L (22-29); Chloride 103 mmol/L (96-108); Creatinine Clr Calc Pharmacy 109.8; Estimated Glomerular Filt Rate > 60; Glucose Random 159 mg/dL (60-115); Lipase 52 U/L (8-78); Magnesium 2.2 mg/dL (1.6-2.6); Potassium 3.7 mmol/L (3.3-5.1); Sodium 136 mmol/L (135-145); Total Protein 7.8 g/dL (6.5-8.0)
[2024-11-22 11:26] LABS: Lactic Acid 2.1 mmol/L (0.5-2.0)
[2024-11-22 11:30] LABS: B Type Natriuretic Peptide 19 pg/mL (<100); Basophils Absolute Auto 0.1 X10*3/uL (0.0-0.2); Eosinophils Absolute Auto 0.4 X10*3/uL (0.0-0.4); Eosinophils Percent Auto 3.6 % (0-4); Hematocrit 42.8 % (42.0-52.0); Hemoglobin 14.2 g/dl (14.0-18.0); Imm Gran Abs Auto 0.05 X10*3/uL (0.00-0.03); Imm Gran Pct Auto 0.5 % (0.0-0.4); Lymphocytes Absolute Auto 2.1 X10*3/uL (1.2-4.9); Lymphocytes Percent Auto 20.9 % (20-40); Mean Corpuscular HGB Conc 33.2 g/dl (31.0-36.0); Mean Corpuscular Hemoglobin 27.7 pg (27.0-33.0); Mean Corpuscular Volume 83.6 fL (80.0-98.0); Mean Platelet Volume 9.1 fL (9.4-12.4); Monocytes Absolute Auto 0.7 X10*3/uL (0.1-1.2); Neutrophils Absolute Auto 6.6 x10*3/uL (2.0-8.3); Platelet Count 336 X10*3/uL (160-400); Red Blood Count 5.12 X10*6/uL (4.60-5.80); White Blood Count 9.8 X10*3/uL (4.8-10.8)
[2024-11-22] MEDS: diazePAM 10 MG/2 ML CARTRIDGE 2.5 MG IVPUSH (11:44)
[2024-11-22] MEDS: Lactated Ringers 1,000 ML 999 ML IV (11:50)
[2024-11-22 12:03] LABS: Influenza A PCR NEGATIVE (Negative); Influenza B PCR NEGATIVE (Negative); Resp Syncy Virus RNA Qual PCR NEGATIVE (Negative); SARS COV2 PCR INHOUSE NEGATIVE (Negative)
[2024-11-22 12:22] LABS: Erythrocyte Sedimentation Rate 54 MM/HR (0-15)
[2024-11-22] MEDS: iohexoL 350 MG/ML 100 ML INFUS..BTL IV (12:34)
[2024-11-22 13:07] LABS: Reflex Lactate? Lactic Acid Added
--- OUTSIDE RECORDS SUMMARY | 2024-11-22 13:27 | XMS_ITS | Encounter Summary ---
Author Organization [email or web address] Address [address] [facility] [address] [place] [address] Care Team Providers Care Tree Specialist Name Role Phone Milena Shoemaker MD Primary Care Provider [phone] Reason for Visit * Reason Onset Date Comments Med Refill 03/01/2024 Encounter Details Date Type Department Care Team ([facility] st Contact Info) Description 03/01/[address] [facility] [address] [place] [address] Milena Shoemaker MD [address] [place], [place] [id number] Med Refill Social History Tobacco Use Types [...] 10 MG tablet To be sent to: [facility] - [place], [place] - [address] [place] [address] St documented in this encounter Plan of Treatment Not on file documented as of this encounter Visit Diagnoses Not on filedocumented in this encounter Additional Health Concerns Assessment Noted Time PHQ-9 Depression Total Score: 7 07/15/19 23 1:17 PM EST documented as of this encounter Care Teams Tree Specialist Relationship Specialty Start Date End Date Milena Shoemaker MD [address] [place] [address] PCP - General Family Medicine 08/12/22 Maria G Sellers CNP Psychiatrist 02/23/23 documented as of this encounter
[2024-11-22 13:34] LABS: Appearance Urine Clear; Color Urine Yellow; Glucose Urine UA >=1000 mg/dL (Negative); Leukocyte Esterase Urine Negative (Negative); Nitrite Urine Negative (Negative); PH 5.5 (5.0-9.0); Specific Gravity - Urine >= 1.030 (1.005-1.025); UMIC TRIGGER UACC YES; Urine Blood Negative (Negative); Urine Ketones Negative (Negative); Urine Protein 300 (3+) mg/dL (Neg-Trace)
[2024-11-22 13:36] LABS: Bacteria Urine None Seen (None Seen); Hyaline Casts Urine 0-2 /LPF (0-2); RBC Urine 0-2 /HPF (0-2); Squamous Epithelial Cell Urine 0-2 /HPF (0-2); WBC Urine 0-5 /HPF (0-5)
--- NOTE | 2024-11-22 14:10 | P.HPHOSP_ITS ---
History of Present Illness Date of Service: 11/22/24 Attending physician on admission: Anastasia Cottrell Chief Complaint: Right back pain, abdominal pain, rectal bleeding Gallo Saini is a 54 years old man with past medical history significant for type 2 diabetes mellitus, obesity, asthma, hyperlipidemia and obstructive sleep apnea was brought to the emergency department via EMS with a plethora of acute symptoms including LLQ pain radiating to the back associated with rectal bleeding (not mixed with stools). He also complained of right lower back pain radiating to the right 1st toe which he attributes to chronic back issues. Both pains have intensity of 10/10. He also complained of nausea and had 1 event of nonbloody vomiting Ativan. He did not report any headache, dizziness or palpitations. He did complain of shortness on breath and wheezing that resolved after receiving breathing treatment. He did not report chest pain. That is not fever or chills. In the ED he was found to have stable vital signs. Last blood pressure is 142/59. Blood workup showed no leukocytosis. CRP is elevated, 2.09. Hemoglobin is normal, 14.2 and platelets is 336. There is minimal lactic acidosis of 2.1 (it has normalized). LFTs and lipase are normal. BNP is normal. Urinalysis showed elevated specific gravity, proteinuria and glucosuria. There is no blood or RBCs. COVID-19 for influenza, RSV are negative. CXR is negative. Right side x-ray is remarkable for soft tissue swelling of the great toe extending into to medial midfoot concerning for osteomyelitis. Abdominal pelvis CT scan showed 1.7 cm solid mass of the posterior aspect of the upper pole of the right kidney and moderate amount of stool throughout the colon. ED tx: Zosyn 3.375 g, Dilaudid 2 mg IV total, Zofran 4 mg IV, famotidine 20 mg IV, DuoNeb x1, LR 1 L, diazepam 2.5 mg IV Review of Systems 2 Review of Systems: All 12 systems were reviewed and normal except as noted in HPI. 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 Tobacco Use Status: Current everyday Tobacco user Tobacco use type: Cigarette Cigarette Packs Per Day: 1 Cigarettes Per Day: 20 e-Cigarette/Vaping Use: Never Used Second Hand Smoke Exposure: No Substance Use Type: Marijuana Advance Directives: Yes Advance Directives on File: Yes Advance Directives Date on File: 08/30/23 service: No Meds Allergies Allergy/AdvReac Type Severity Reaction Status Date / Time coconut Allergy Rash Verified 11/22/24 10:21 naproxen [From NAPROSYN] AdvReac Severe STOMACH Verified 11/22/24 10:20 UPSET cefepime AdvReac Intermediate Rash Verified 11/22/24 10:20 lisinopril [LISINOPRIL] AdvReac Mild COUGH Verified 11/22/24 10:20 SEAFOOD Allergy Unknown ANAPHYLAXIS Uncoded 11/22/24 10:20 Active Medications: Current Medications Acetaminophen (Acetaminophen 325 Mg Tablet) 975 mg PO Q6H RANDALL Albuterol Sulfate (Albuterol Sulfate (0.083%) 2.5 Mg/3 Ml Vial.Neb) 2.5 mg INHALE Q3H PRN PRN Reason: Nausea and Vomiting Calcium Carbonate (Calcium Carbonate 750 Mg Tab.Chew) 750 mg PO Q4H PRN PRN Reason: Heartburn Dextrose (Dextrose 50 % 25 Gm/50 Ml Syringe) 25 gm IVPUSH Q15M PRN; Protocol PRN Reason: per Hypoglycemia Standing Ord. Glucose (Glucose Gel 15 Gm Gel..Gram.) 15 gm PO Q15M PRN; Protocol PRN Reason: per Hypoglycemia Standing Ord. Hydromorphone HCl (Hydromorphone Hcl 1 Mg/Ml Syringe) 1.5 mg IVPUSH Q4H PRN; Protocol PRN Reason: Pain, Severe (Pain Scale 7-10) Piperacillin Sod/Tazobactam (Sod 3.375 gm/ Sodium Chloride) 50 mls @ 100 mls/hr IV Q8H RANDALL Vancomycin HCl (Vancomycin/Ns) 2,000 mg in 500 mls @ 250 mls/hr IV ONCE ONE Stop: 11/22/24 16:14 Insulin Glargine (Insulin Glargine,Hum.Rec.Anlog 100 Unit/Ml 10 Ml Vial) 60 unit SUBCUT BEDTIME [facility] Insulin Human Lispro (Insulin Lispro 100 Unit/Ml 3 Ml Vial) 0 unit SUBCUT QIDACHS [facility]; Protocol Magnesium Hydroxide (Milk Of Magnesia 30 Ml Oral.Susp) 30 ml PO DAILY PRN PRN Reason: Constipation Melatonin (Melatonin 3 Mg Tablet) 6 mg PO BEDTIME PRN PRN Reason: Insomnia Pharmacy Consult (Consult Rx Vancomycin Dosing) 1 each MISCELLANE DAILY PRN PRN Reason: Consult order Sodium Chloride (0.9 % Sodium Chloride Flush 3 Ml Syringe) [facility] Medications ?Medication ?Instructions ?Recorded ?Confirmed ?Last Taken ?Type albuterol sulfate 90 mcg/actuation 2 puff inhalation Q4H PRN Wheezing 08/15/23 11/22/24 08/29/23 History aerosol inhaler (Ventolin HFA) atorvastatin 80 mg tablet 80 mg PO BEDTIME 08/15/23 11/22/24 11/21/24 History baclofen 10 mg tablet 10 mg PO TID 08/15/23 11/22/24 11/22/24 History cetirizine 10 mg tablet 10 mg PO DAILY 08/15/23 11/22/24 11/22/24 History chlorthalidone 50 mg tablet 50 mg PO DAILY 08/15/23 11/22/24 11/22/24 History empagliflozin 25 mg tablet 25 mg PO DAILY 08/15/23 11/22/24 11/22/24 History (Jardiance) epinephrine 0.3 mg/0.3 mL 0.3 mg IM DIRECTED PRN Allergic 08/15/23 11/22/24 Unknown History injection, auto-injector Reaction fluticasone propionate 50 1 spray intranasal BID PRN Allergy 08/15/23 11/22/24 Unknown History mcg/actuation nasal Symptoms spray,suspension gabapentin 800 mg tablet 800 mg PO TID 08/15/23 11/22/24 11/22/24 History losartan 100 mg tablet 100 mg PO DAILY 08/15/23 11/22/24 11/22/24 History magnesium oxide 400 mg (241.3 mg 400 mg PO DAILY 08/15/23 11/22/24 11/22/24 History magnesium) tablet oxycodone 5 mg tablet 5 mg PO Q6H PRN severe pain 08/15/23 11/22/24 01/01/24 History tamsulosin 0.4 mg capsule 0.4 mg PO DAILY 08/15/23 11/22/24 11/22/24 History insulin glargine 100 unit/mL (3 90 unit subcut BEDTIME 08/29/23 11/22/24 11/19/24 History mL) subcutaneous pen (Basaglar KwikPen U-100 Insulin) acetaminophen 650 mg 650 mg PO Q8H PRN pain 01/02/24 11/22/24 Unknown History tablet,extended release hydralazine 100 mg tablet 100 mg PO TID 06/25/24 11/22/24 11/22/24 History labetalol 300 mg tablet 300 mg PO BID 06/25/24 11/22/24 11/22/24 History ondansetron HCl 4 mg tablet 4 mg PO Q8H PRN Nausea And Vomiting 06/25/24 11/22/24 Unknown History clotrimazole-betamethasone 1 1 appl topical BID PRN Rash 11/22/24 11/22/24 Unknown History %-0.05 % topical cream dulaglutide 3 mg/0.5 mL 3 mg subcut QWEEK 11/22/24 11/22/24 3 Weeks Ago History subcutaneous [facility] insulin aspart U-100 100 unit/mL 10 unit subcut TIDAC 11/22/24 11/22/24 11/22/24 History subcutaneous solution (Novolog U-100 Insulin aspart) Physical Exam 2 Vital Signs and Narrative: Vital Signs: Last Vital Signs Temp 98.1 F 11/22/24 11:17 Pulse 78 11/22/24 11:17 Resp 16 11/22/24 11:17 BP 151/76 H 11/22/24 11:17 Pulse Ox 93 11/22/24 11:17 O2 Del Method Room Air 11/22/24 11:17 BMI result Body Mass Index 40.9 Constitutional - Awake and Alert, in distress due to severe abdominal pain. Pleasant. Cooperative. Obese. HEENT - PER, EOMI Heart - RRR, No murmurs. Lungs - Normal lung expansion, Normal respiratory effort, No respiratory distress, CTA bilaterally Abdomen - Nondistened. Large pannus. Increased bowel sounds. LLQ tenderness to palpation. (+) guarding. No rebound. Extremities - right foot: 1st toe: 2-3 cm deep ulcer over the dorsal area with surrounding erythema (see picuture ED provider note). No discharges. No foul odor. Left 1st toe amputation (hx of trauma). Musculoskeletal - Normal inspection, normal ROM Skin - Warm/Dry. No pallor. No jaundice. Neurological - Alert & oriented x3. No focal weakness grossly noted. Normal speech. Psychological - Appropriate affect. Results Labs 11/22/24 11:01 11/22/24 11:01 Labs: Laboratory Results - last 24 hr 11/22/24 11/22/24 11/22/24 11: 13:19 13:27 MCV 83.6 MCH 27.7 MCHC 33.2 RDW 14.0 Plt Count 336 MPV 9.1 L Immature Gran % (Auto) 0.5 H Neut % (Auto) 67.0 Lymph % (Auto) 20.9 [place] % (Auto) 7.0 Eos % (Auto) 3.6 Baso % (Auto) 1.0 Lymph # (Auto) 2.1 [place] # (Auto) 0.7 Eos # (Auto) 0.4 Baso # (Auto) 0.1 Abs Immat Gran (auto) 0.05 H Absolute Neuts (auto) 6.6 Absolute Nucleated RBC 0.000 Nucleated RBC % (auto) 0.0 ESR 54 H Anion Gap 10 L Estim Creat Clear Calc 109.8 Estimated GFR > 60 Random Glucose 159 H Lactic Acid 2.1 H* Lactic Acid F/U @ 2Hr 2.0 Calcium 9.6 D Magnesium 2.2 Total Bilirubin 0.7 AST 23 ALT 14 Alkaline Phosphatase 115 C-Reactive Protein 2.09 H B-Natriuretic Peptide 19 Total Protein 7.8 Albumin 3.9 Lipase 52 Urine Color Yellow Urine Appearance Clear Urine pH 5.5 Ur Specific [place] >= 1.030 H Urine Protein 300 (3+) H Urine Glucose (UA) >=1000 H Urine Ketones Negative Urine Blood Negative Urine Nitrite Negative Ur Leukocyte Esterase Negative Urine RBC 0-2 Urine WBC 0-5 Ur Squamous Epith Cells 0-2 Urine Bacteria None Seen Hyaline Casts 0-2 Influenza Type A (PCR) NEGATIVE Influenza Type B (PCR) NEGATIVE RSV RNA Qual (PCR) NEGATIVE SARS-CoV-2 RNA (RT-PCR) NEGATIVE Imaging Radiologist's Impressions: Impressions Chest X-Ray 11/22/24 10:23 IMPRESSION: No acute disease Electronically signed by: Vinny Granado MD 11/22/2024 11:47 AM EDT RP Toe X-Ray 11/22/24 10:25 IMPRESSION: There is soft tissue swelling of the great toe extending into the medial midfoot. If there is skin ulceration and concern for osteomyelitis, MRI is the most sensitive modality. Increasing degenerative change in the central and medial midfoot with extensive sclerosis and subarticular degenerative cystic change and osteopenia. There is also evidence for fragmentation/debris. This could be related to diabetic neuropathy. Electronically signed by: Vinny Granado MD 11/22/2024 11:46 AM EDT RP Abdomen/Pelvis CT 11/22/24 11:06 IMPRESSION: 1. 1.7 cm solid mass at the posterior aspect of the upper pole of the right kidney. Urologic consultation is recommended. 2. Moderate amount of stool throughout the colon. Electronically signed by: Chuck Radford MD 11/22/2024 12:46 PM EDT RP Assessment and Plan (1) Abdominal pain: Qualifiers: Abdominal location: left lower quadrant Qualified Code(s): R10.32 - Left lower quadrant pain Status: Acute (2) Low back pain: Qualifiers: Back pain laterality: right Chronicity: acute Sciatica laterality: s ciatica of right side Sciatica presence: with sciatica Qualified Code(s): M 54.41 - Lumbago with sciatica, right side Status: Acute (3) Wound of foot: Status: Acute Plan Gallo Saini is a 54 y/o man admitted with: * LLQ pain + rectal bleeding (BRBPR). Abdominal and pelvis CT scan - showed no evidence of colitis or diverticulosis. ? Hemorrhoids. H&H normal. Admit to hospitalist service. Continue to monitor H&H. Avoid blood thinners. Pain control with IV narcotics as needed. Gastroenterology consult. * Right 1st toe infected ulcer. Empiric antibiotic therapy with vancomycin and Zosyn. Right foot MRI to assess for osteomyelitis. Surgery and Wound Care consult. * Right lower back pain, likely sciatica. Pain control with IV narcotics, Tylenol, baclofen and gabapentin. * Right kidney solid mass (1.7). Urology consult. * Lactic acidosis, resolved. Likely secondary to vomiting. No sepsis criteria. * Type 2 diabetes mellitus. Diabetic diet. BG checks before meals at bedtime. Continue Lantus, insulin sliding scale and Jardiance. Trulicity not formulary. Check hemoglobin A1c. * Essential hypertension. Continue labetalol, losartan, hydralazine and amlodipine. Chlorthalidone on hold due to vomiting (to avoid further dehydration). * S/p asthma exacerbation, currently controlled after breathing treatment. Albuterol inhalers p.r.n.. * Hyperlipidemia. Continue atorvastatin. * Obstructive sleep apnea. Nocturnal BiPAP. * Obesity, BMI 40.9 kg/m2. Weight loss. * BPH. Continue tamsulosin. Code status: Full DVT prophylaxis: SCDs Patient will need hospitalization for at least 2 midnights for multiple acute medical issues treatment: Acute back pain, rectal bleeding, infected right 1st toe ulcer with IV pain meds, IV antibiotics Quality Stroke Does the patient have a stroke diagnosis?: No VTE Prior VTE?: No VTE Risk Level:: Medical - moderate - high VTE Device Contraindication: N/A - Device Ordered VTE Drug Contraindication: Treatment Not Indicated
[2024-11-22 14:11] VITALS: BP 142/59; PULSE 84; RESP 20; O2SAT 95
[2024-11-22] MEDS: Acetaminophen 325 MG TABLET 975 MG PO ×2 (14:15→21:26)
[2024-11-22] MEDS: Gabapentin 600 MG TABLET 800 MG PO (14:15)
[2024-11-22] MEDS: vancomycin/NS 2,000 MG/500 ML PLAST..BAG 250 MG IV (14:16)
--- NOTE | 2024-11-22 14:51 | PHA.MEDREC ---
Addendum entered by Olman Michel shameka 11/22/24 16:55: Per patient, he takes his trulicity on fridays. MED REC REVIEWED Original Note: Pharmacy Consult ? Medication Reconciliation Pharmacy has completed the medication reconciliation. Spoke with pt and he pulled up his med list from [facility] and we utilized that to confirm the med rec. Pt confirmed he has not had the Trulicity in about 3 weeks due to not being able to eat and not wanting to risk anything happening if he does it. He also confirmed he has not had any of his Basaglar KwikPen in 3 days due to running out and insurance not covering it at this time. Pt confirmed he is using Novolog testing 2 times a day before meals and injecting 10 units accordingly and not using the Fiasp FlexTouch at this time.
--- NOTE | 2024-11-22 14:59 | HE.PHANOTE ---
RE VANCO Patients indication is bone infection. will target higher side of AUC goal. Dosing is 1250 mg Q12H. Dose timing is for 2 pm and 2 am. Pharmacy will not be here to follow level during the 2 am window therefore level will be pulled earlier on 11/23 @1200. Predicted AUC 532
--- NOTE | 2024-11-22 16:06 | P.CNGI_ITS ---
History of Present Illness Data of Consult Service Date: 11/22/24 Requesting physician: Anastasia Cottrell Primary Care Provider: Milena Shoemaker MD [facility] Reason for consult: LLQ pain and rectal bleeding 54 YM with type 2 diabetes mellitus, obesity, asthma, hyperlipidemia and obstructive sleep apnea brought to the [facility] via EMS with multiple complaints including 10/10 LLQ pain radiating to the back with rectal bleeding (not mixed with stools). He also complained of 10/10 right lower back pain radiating to the right 1st toe which he attributes to chronic back issues. Pt notes nausea with an episode of non-bloody emesis. Pt reports intermittent LLQ pain off and on since his last colon, worse after eating a big meal and when his stomach is full. Pt complains of intermittent rectal bleeding with rectal pain consisting of BRB on the toilet paper and in the toilet bowl for the past 3 weeks. Bleeding has been worse this week and appears separate from the stools and he denies seeing any blood clots Pt complains of decreased appetite related to stress and has been forcing himself to eat. He complained of having some chills yesterday and denied fever, headache, dizziness, chest pain or palpitations. He did complain of shortness on breath and wheezing that resolved after receiving breathing treatment. Pt takes oxycodone and is able to avoid constipation by taking fibre pills and blueberry muffins He admits to smoking Marijuana for nausea Pt reports he [place] [facility] [place] and polyps were detected and not removed (? needed removal with laser/special equipment) Repeat colonoscopy was advised for removal of polyps and not scheduled. Patient admits to smoking 1 pack per day and denies EtOH abuse. 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 Family history is positive for colon polyps in multiple family members. His grandfather with colon cancer in his 80s. In the ED he was found to have stable vital signs. Last blood pressure is 142/59. Labs showed elevated CRP of 2.09, normal H &H 14.2 and 42.8 (no significant change from labs in Jun, 2024) and platelets is 336. There is minimal lactic acidosis of 2.1 (it has normalized). LFTs and lipase are normal. BNP is normal. COVID-19 for influenza, RSV are negative. CXR is negative. Right side x-ray is remarkable for soft tissue swelling of the great toe extending into to medial midfoot concerning for osteomyelitis. ABD CT SCAN SHOWED: KIDNEYS/RETROPERITONEUM: No renal calculi are identified. There is no hydronephrosis. There is a 1.7 cm solid mass at the posterior aspect of the upper pole of the right kidney (series 3 image 44, and series 6 image 99). STOMACH: The stomach is collapsed, limiting evaluation. SMALL BOWEL: The small bowel is normal in caliber. COLON: There is a moderate amount of stool throughout the colon. ED tx: Zosyn 3.375 g, Dilaudid 2 mg IV total, Zofran 4 mg IV, famotidine 20 mg IV, DuoNeb x1, LR 1 L, diazepam 2.5 mg IV Review of Systems 2 Review of Systems: All 12 systems were reviewed and normal except as noted in HPI. 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 Tobacco Use Status: Current everyday Tobacco user Tobacco use type: Cigarette Cigarette Packs Per Day: 20 Cigarettes Per Day: 400.0 e-Cigarette/Vaping Use: Never Used Second Hand Smoke Exposure: No Substance Use Type: Marijuana Advance Directives Date on File: 08/30/23 service: No Meds Allergies Allergy/AdvReac Type Severity Reaction Status Date / Time coconut Allergy Rash Verified 11/22/24 10:21 naproxen [From NAPROSYN] AdvReac Severe STOMACH Verified 11/22/24 10:20 UPSET cefepime AdvReac Intermediate Rash Verified 11/22/24 10:20 lisinopril [LISINOPRIL] AdvReac Mild COUGH Verified 11/22/24 10:20 SEAFOOD Allergy Unknown ANAPHYLAXIS Uncoded 11/22/24 10:20 Active Medications: Current Medications Acetaminophen (Acetaminophen 325 Mg Tablet) 975 mg PO Q6H [facility] Last Admin: 11/22/24 14:15 Dose: 975 mg Albuterol Sulfate (Albuterol Sulfate (0.083%) 2.5 Mg/3 Ml Vial.Neb) 2.5 mg INHALE Q3H PRN PRN Reason: Nausea and Vomiting Amlodipine Besylate (Amlodipine Besylate 5 Mg Tablet) 5 mg PO DAILY [facility]; Protocol Atorvastatin Calcium (Atorvastatin Calcium 80 Mg Tablet) 80 mg PO BEDTIME [facility] Baclofen (Baclofen 10 Mg Tablet) 10 mg PO TID [facility] Calcium Carbonate (Calcium Carbonate 750 Mg Tab.Chew) 750 mg PO Q4H PRN PRN Reason: Heartburn Dextrose (Dextrose 50 % 25 Gm/50 Ml Syringe) 25 gm IVPUSH Q15M PRN; Protocol PRN Reason: per Hypoglycemia Standing Ord. Empagliflozin (Empagliflozin 25 Mg Tablet) 25 mg PO DAILY [facility] Gabapentin (Gabapentin 400 Mg Capsule) 800 mg PO TID [facility] Glucose (Glucose Gel 15 Gm Gel..Gram.) 15 gm PO Q15M PRN; Protocol PRN Reason: per Hypoglycemia Standing Ord. Hydralazine HCl (Hydralazine Hcl 50 Mg Tablet) 100 mg PO TID [facility]; Protocol Hydromorphone HCl (Hydromorphone Hcl 1 Mg/Ml Syringe) 1.5 mg IVPUSH Q4H PRN; Protocol PRN Reason: Pain, Severe (Pain Scale 7-10) Piperacillin Sod/Tazobactam (Sod 3.375 gm/ Sodium Chloride) 50 mls @ 100 mls/hr IV Q8H [facility] Vancomycin HCl (Vancomycin/Ns) 2,000 mg in 500 mls @ 250 mls/hr IV ONCE ONE Stop: 11/22/24 16:14 Last Admin: 11/22/24 14:16 Dose: 250 mls/hr Vancomycin HCl 1,250 mg/ (Sodium Chloride) 250 mls @ 166.667 mls/hr IV Q12H [facility] Insulin Glargine (Insulin Glargine,Hum.Rec.Anlog 100 Unit/Ml 10 Ml Vial) 90 unit SUBCUT BEDTIME [facility] Insulin Human Lispro (Insulin Lispro 100 Unit/Ml 3 Ml Vial) 0 unit SUBCUT QIDACHS [facility]; Protocol Labetalol HCl (Labetalol Hcl 100 Mg Tablet) 300 mg PO BID [facility] Loratadine (Loratadine 10 Mg Tablet) 10 mg PO DAILY [facility] Losartan Potassium (Losartan Potassium 50 Mg Tablet) 100 mg PO DAILY [facility]; Protocol Magnesium Hydroxide (Milk Of Magnesia 30 Ml Oral.Susp) 30 ml PO DAILY PRN PRN Reason: Constipation Melatonin (Melatonin 3 Mg Tablet) 6 mg PO BEDTIME PRN PRN Reason: Insomnia Pharmacy Consult (Consult Rx Vancomycin Dosing) 1 each MISCELLANE DAILY PRN PRN Reason: Consult order Prochlorperazine Edisylate (Prochlorperazine Edisylate 10 Mg/2 Ml Vial) 5 mg IVPUSH Q6H PRN PRN Reason: Nausea and Vomiting Sodium Chloride (0.9 % Sodium Chloride Flush 3 Ml Syringe) 3 ml IVFLUSH QSHIFT [facility] Tamsulosin HCl (Tamsulosin Hcl 0.4 Mg Capsule) 0.4 mg PO DAILY [facility] Home Medications ?Medication ?Instructions ?Recorded ?Confirmed ?Last Taken ?Type albuterol sulfate 90 mcg/actuation 2 puff inhalation Q4H PRN Wheezing 08/15/23 11/22/24 08/29/23 History aerosol inhaler (Ventolin HFA) atorvastatin 80 mg tablet 80 mg PO BEDTIME 08/15/23 11/22/24 11/21/24 History baclofen 10 mg tablet 10 mg PO TID 08/15/23 11/22/24 11/22/24 History cetirizine 10 mg tablet 10 mg PO DAILY 08/15/23 11/22/24 11/22/24 History chlorthalidone 50 mg tablet 50 mg PO DAILY 08/15/23 11/22/24 11/22/24 History empagliflozin 25 mg tablet 25 mg PO DAILY 08/15/23 11/22/24 11/22/24 History (Jardiance) epinephrine 0.3 mg/0.3 mL 0.3 mg IM DIRECTED PRN Allergic 08/15/23 11/22/24 Unknown History injection, auto-injector Reaction fluticasone propionate 50 1 spray intranasal BID PRN Allergy 08/15/23 11/22/24 Unknown History mcg/actuation nasal Symptoms spray,suspension gabapentin 800 mg tablet 800 mg PO TID 08/15/23 11/22/24 11/22/24 History losartan 100 mg tablet 100 mg PO DAILY 08/15/23 11/22/24 11/22/24 History magnesium oxide 400 mg (241.3 mg 400 mg PO DAILY 08/15/23 11/22/24 11/22/24 History magnesium) tablet oxycodone 5 mg tablet 5 mg PO Q6H PRN severe pain 08/15/23 11/22/24 01/01/24 History tamsulosin 0.4 mg capsule 0.4 mg PO DAILY 08/15/23 11/22/24 11/22/24 History insulin glargine 100 unit/mL (3 90 unit subcut BEDTIME 08/29/23 11/22/24 11/19/24 History mL) subcutaneous pen (Basaglar KwikPen U-100 Insulin) acetaminophen 650 mg 650 mg PO Q8H PRN pain 01/02/24 11/22/24 Unknown History tablet,extended release hydralazine 100 mg tablet 100 mg PO TID 06/25/24 11/22/24 11/22/24 History labetalol 300 mg tablet 300 mg PO BID 06/25/24 11/22/24 11/22/24 History ondansetron HCl 4 mg tablet 4 mg PO Q8H PRN Nausea And Vomiting 06/25/24 11/22/24 Unknown History clotrimazole-betamethasone 1 1 appl topical BID PRN Rash 11/22/24 11/22/24 Unknown History %-0.05 % topical cream dulaglutide 3 mg/0.5 mL 3 mg subcut FR 11/22/24 11/22/24 3 Weeks Ago History subcutaneous [facility] insulin aspart U-100 100 unit/mL 10 unit subcut TIDAC 11/22/24 11/22/24 11/22/24 History subcutaneous solution (Novolog U-100 Insulin aspart) Physical Exam 2 Vital Signs: Vital Signs: Last Vital Signs Temp 98.1 F 11/22/24 11:17 Pulse 84 11/22/24 14:11 Resp 20 11/22/24 14:11 BP 142/59 H 11/22/24 14:11 Pulse Ox 95 11/22/24 14:11 O2 Del Method Room Air 11/22/24 14:11 BMI result Body Mass Index 40.9 Const: General: no acute distress Nutritional Appearance: obese O rientation/consciousness: patient oriented x3 Limitations: no limitations HEENT: Head: Yes normal to inspection Ears: hearing grossly normal bilaterally Eyes: Sclerae: sclerae normal Pupils: Equal, round and reactive pupils present Neck: Neck: Yes normal visual inspection Chest: Chest palpation & inspection: normal inspection of the chest Resp: Effort & Inspection: normal respiratory effort Auscultation: clear to auscultation bilaterally Cardio: Palpation: normal PMI Rate: regular rate Rhythm: regular rhythm Heart sounds: S1 normal heart sound present, S2 normal heart sound present and no murmurs GI: Inspection: Yes obesity Palpation (GI): Soft to palpation, Tenderness to palpation present (GI) (LLQ tenderness without rebound) and No hepatosplenomegaly present Auscultation: normal bowel sounds Rectal Exam - Male: Yes deferred Skin: General skin exam: no rashes or lesions noted Neuro: General: patient oriented x3, gait normal and moves all extremities Cranial nerves: Yes Equal, round and reactive pupils present Psych: Appearance: grossly normal Mental Status: mental status grossly normal Results Labs 11/23/24 15:29 11/23/24 05:33 Labs: Short CBC 11/22/24 Range/Units 11:01 WBC 9.8 (4.8-10.8) X10*3/uL Hgb 14.2 (14.0-18.0) g/dl Hct 42.8 (42.0-52.0) % Plt Count 336 (160-400) X10*3/uL BMP 11/22/24 11:01 Sodium 136 Potassium 3.7 Chloride 103 Carbon Dioxide 27 BUN 26 H Creatinine 1.00 Calcium 9.6 D Liver Function 11/22/24 Range/Units 11:01 Total Bilirubin 0.7 (0.0-1.0) mg/dL AST 23 (5-37) U/L ALT 14 (0-40) U/L Alkaline Phosphatase 115 (39-117) U/L Albumin 3.9 (3.5-5.0) g/dL Urine 11/22/24 Range/Units 13:27 Urine Color Yellow Urine Appearance Clear Urine pH 5.5 (5.0-9.0) Ur Specific [place] >= 1.030 H (1.005-1.025) Urine Protein 300 (3+) H (Neg-Trace) mg/dL Urine Glucose (UA) >=1000 H (Negative) mg/dL Assessment and Plan (1) Abdominal pain: Qualifiers: Abdominal location: left lower quadrant Qualified Code(s): R10.32 - Left lower quadrant pain Status: Acute (2) Rectal bleeding: Status: Acute Plan 54 YM with type 2 diabetes mellitus, obesity, asthma, hyperlipidemia and obstructive sleep apnea admitted [place] [facility] on 11/22/24 LLQ pain and rectal bleeding Pt reports he [place] [facility] [place] and polyps were detected and not removed (? needed removal with laser/special equipment) Repeat colonoscopy was advised for removal of polyps and not scheduled - records have been [place] [facility] [place] Patient admits to smoking 1 pack per day and denies EtOH abuse. Labs showed normal H &H 14.2 and 42.8 (no significant change from labs in Jun, 2024) RECOMMENDATIONS: 1. Agree with IV PPI, pain medications and anti-emetics 2. Repeat CBC tonight and check daily if stable 3. Miralax twice daily for constipation/stool in the colon - order placed. 4. After reviewing previous colon report, pt was advised to schedule a flexible sigmoidoscopy for evaluation or rectal pain and bleeding - patient placed on the add on list for a flexible sigmoidoscopy on 11/26/24. ADDENDUM: 04/2020 patient had a colonoscopy due to family history of IBD and chronic defecating pain with vasovagal reaction. Colonoscopy showed a normal TI, mild diverticulosis in the sigmoid colon and segmental edema in the sigmoid colon. Internal and external hemorrhoids were seen. Random biopsies obtained from the TI, cecum, ascending colon, transverse colon, descending colon and sigmoid colon were normal. Rectal biopsies showed mild chronic inactive colitis negative for granulomas or dysplasia. Patient was felt to have pelvic floor dysfunction and advised to schedule defecography and was referred to colorectal surgeon and pelvic floor physical therapy. He had an ano-rectal manometry which did not show prolapse or rectocele. Procedures Date of Service Date of Service: 11/23/24
--- NOTE | 2024-11-22 16:40 | PM.CNGS ---
History of Present Illness Consult details Consult date: 11/22/24 Requesting physician: Rosanne Jeffery Narrative: 54-year-old male patient presenting with a nonhealing ulcer of the great toe right foot. 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 He has been treating the great toe wound by himself without any help and has not been previously treated [facility] the [facility]. He reports being involved in court for a prolonged period of time which is increasing the stress in his life. He denies any significant pain in the foot at this time. 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 Tobacco Use Status: Current everyday Tobacco user Tobacco use type: Cigarette Cigarette Packs Per Day: 1 Cigarettes Per Day: 20 e-Cigarette/Vaping Use: Never Used Second Hand Smoke Exposure: No Substance Use Type: Marijuana Advance Directives: Yes Advance Directives on File: Yes Advance Directives Date on File: 08/30/23 service: No Meds Allergies Allergy/AdvReac Type Severity Reaction Status Date / Time coconut Allergy Rash Verified 11/22/24 10:21 naproxen [From NAPROSYN] AdvReac Severe STOMACH Verified 11/22/24 10:20 UPSET cefepime AdvReac Intermediate Rash Verified 11/22/24 10:20 lisinopril [LISINOPRIL] AdvReac Mild COUGH Verified 11/22/24 10:20 SEAFOOD Allergy Unknown ANAPHYLAXIS Uncoded 11/22/24 10:20 Active Medications: Current Medications Acetaminophen (Acetaminophen 325 Mg Tablet) 975 mg PO Q6H [facility] Last Admin: 11/22/24 14:15 Dose: 975 mg Albuterol Sulfate (Albuterol Sulfate (0.083%) 2.5 Mg/3 Ml Vial.Neb) 2.5 mg INHALE Q3H PRN PRN Reason: Nausea and Vomiting Amlodipine Besylate (Amlodipine Besylate 5 Mg Tablet) 5 mg PO DAILY [facility]; Protocol Atorvastatin Calcium (Atorvastatin Calcium 80 Mg Tablet) 80 mg PO BEDTIME [facility] Baclofen (Baclofen 10 Mg Tablet) 10 mg PO TID [facility] Calcium Carbonate (Calcium Carbonate 750 Mg Tab.Chew) 750 mg PO Q4H PRN PRN Reason: Heartburn Clotrimazole (Clotrimazole 1 % Cream 15 Gm Tube) 1 appl TOPICAL BID [facility]; Protocol Dextrose (Dextrose 50 % 25 Gm/50 Ml Syringe) 25 gm IVPUSH Q15M PRN; Protocol PRN Reason: per Hypoglycemia Standing Ord. Empagliflozin (Empagliflozin 25 Mg Tablet) 25 mg PO DAILY [facility] Gabapentin (Gabapentin 400 Mg Capsule) 800 mg PO TID [facility] Glucose (Glucose Gel 15 Gm Gel..Gram.) 15 gm PO Q15M PRN; Protocol PRN Reason: per Hypoglycemia Standing Ord. Hydralazine HCl (Hydralazine Hcl 50 Mg Tablet) 100 mg PO TID [facility]; Protocol Hydromorphone HCl (Hydromorphone Hcl 1 Mg/Ml Syringe) 1.5 mg IVPUSH Q4H PRN; Protocol PRN Reason: Pain, Severe (Pain Scale 7-10) Piperacillin Sod/Tazobactam (Sod 3.375 gm/ Sodium Chloride) 50 mls @ 100 mls/hr IV Q8H [facility] Vancomycin HCl 1,250 mg/ (Sodium Chloride) 250 mls @ 166.667 mls/hr IV Q12H [facility] Insulin Glargine (Insulin Glargine,Hum.Rec.Anlog 100 Unit/Ml 10 Ml Vial) 90 unit SUBCUT BEDTIME [facility] Insulin Human Lispro (Insulin Lispro 100 Unit/Ml 3 Ml Vial) 0 unit SUBCUT QIDACHS [facility]; Protocol Labetalol HCl (Labetalol Hcl 100 Mg Tablet) 300 mg PO BID [facility] Loratadine (Loratadine 10 Mg Tablet) 10 mg PO DAILY [facility] Losartan Potassium (Losartan Potassium 50 Mg Tablet) 100 mg PO DAILY [facility]; Protocol Magnesium Hydroxide (Milk Of Magnesia 30 Ml Oral.Susp) 30 ml PO DAILY PRN PRN Reason: Constipation Melatonin (Melatonin 3 Mg Tablet) 6 mg PO BEDTIME PRN PRN Reason: Insomnia Pharmacy Consult (Consult Rx Vancomycin Dosing) 1 each MISCELLANE DAILY PRN PRN Reason: Consult order Prochlorperazine Edisylate (Prochlorperazine Edisylate 10 Mg/2 Ml Vial) 5 mg IVPUSH Q6H PRN PRN Reason: Nausea and Vomiting Sodium Chloride (0.9 % Sodium Chloride Flush 3 Ml Syringe) 3 ml IVFLUSH QSHIFT [facility] Tamsulosin HCl (Tamsulosin Hcl 0.4 Mg Capsule) 0.4 mg PO DAILY [facility] Home Medications ?Medication ?Instructions ?Recorded ?Confirmed ?Last Taken ?Type albuterol sulfate 90 mcg/actuation 2 puff inhalation Q4H PRN Wheezing 08/15/23 11/22/24 08/29/23 History aerosol inhaler (Ventolin HFA) atorvastatin 80 mg tablet 80 mg PO BEDTIME 08/15/23 11/22/24 11/21/24 History baclofen 10 mg tablet 10 mg PO TID 08/15/23 11/22/24 11/22/24 History cetirizine 10 mg tablet 10 mg PO DAILY 08/15/23 11/22/24 11/22/24 History chlorthalidone 50 mg tablet 50 mg PO DAILY 08/15/23 11/22/24 11/22/24 History empagliflozin 25 mg tablet 25 mg PO DAILY 08/15/23 11/22/24 11/22/24 History (Jardiance) epinephrine 0.3 mg/0.3 mL 0.3 mg IM DIRECTED PRN Allergic 08/15/23 11/22/24 Unknown History injection, auto-injector Reaction fluticasone propionate 50 1 spray intranasal BID PRN Allergy 08/15/23 11/22/24 Unknown History mcg/actuation nasal Symptoms spray,suspension gabapentin 800 mg tablet 800 mg PO TID 08/15/23 11/22/24 11/22/24 History losartan 100 mg tablet 100 mg PO DAILY 08/15/23 11/22/24 11/22/24 History magnesium oxide 400 mg (241.3 mg 400 mg PO DAILY 08/15/23 11/22/24 11/22/24 History magnesium) tablet oxycodone 5 mg tablet 5 mg PO Q6H PRN severe pain 08/15/23 11/22/24 01/01/24 History tamsulosin 0.4 mg capsule 0.4 mg PO DAILY 08/15/23 11/22/24 11/22/24 History insulin glargine 100 unit/mL (3 90 unit subcut BEDTIME 08/29/23 11/22/24 11/19/24 History mL) subcutaneous pen (Basaglar KwikPen U-100 Insulin) acetaminophen 650 mg 650 mg PO Q8H PRN pain 01/02/24 11/22/24 Unknown History tablet,extended release hydralazine 100 mg tablet 100 mg PO TID 06/25/24 11/22/24 11/22/24 History labetalol 300 mg tablet 300 mg PO BID 06/25/24 11/22/24 11/22/24 History ondansetron HCl 4 mg tablet 4 mg PO Q8H PRN Nausea And Vomiting 06/25/24 11/22/24 Unknown History clotrimazole-betamethasone 1 1 appl topical BID PRN Rash 11/22/24 11/22/24 Unknown History %-0.05 % topical cream dulaglutide 3 mg/0.5 mL 3 mg subcut QWEEK 11/22/24 11/22/24 3 Weeks Ago History subcutaneous pen injector ~11/01/24 ([facility]) insulin aspart U-100 100 unit/mL 10 unit subcut TIDAC 11/22/24 11/22/24 11/22/24 History subcutaneous solution (Novolog U-100 Insulin aspart) Physical Exam Vital Signs: Vital Signs: Last Vital Signs Temp 98.1 F 11/22/24 11:17 Pulse 84 11/22/24 14:11 Resp 20 11/22/24 14:11 BP 142/59 H 11/22/24 14:11 Pulse Ox 95 11/22/24 14:11 O2 Del Method Room Air 11/22/24 14:11 BMI result Body Mass Index 40.9 Const: General: cooperative and no acute distress Nutritional Appearance: well nourished Orientation/consciousness: patient oriented x3 Limitations: no limitations HEENT: Head: Yes normocephalic and Yes atraumatic Ears: hearing grossly normal bilaterally Resp: Effort & Inspection: normal respiratory effort, no audible wheezes, no cough and no respiratory distress Cardio: Jugular venous distension: no JVD GI: Inspection: Yes normal to inspection Skin: Other: Warm, dry, no rash Neuro: General: patient oriented x3 Extrem: Other: Right great toe with a plantar ulcer measuring approximately 2 cm diameter with good granulated tissue noted at the wound base with no evidence of necrotic tissue underlying abscess appreciated. No erythema is noted in the forefoot. Left foot with a well-healed incision following left great toe amputation. General: Yes no clubbing, cyanosis or edema Ankle/foot/toe images: 1. Site of ulceration right great toe Results Labs 11/22/24 11:01 11/22/24 11:01 Labs: Abnormal lab results 11/22/24 11/22/24 Range/Units 11:01 13:27 MPV 9.1 L (9.4-12.4) fL Immature Gran % (Auto) 0.5 H (0.0-0.4) % Abs Immat Gran (auto) 0.05 H (0.00-0.03) X10*3/uL ESR 54 H (0-15) MM/HR Anion Gap 10 L (12-20) BUN 26 H (9-16) mg/dL Random Glucose 159 H (60-115) mg/dL Lactic Acid 2.1 H* (0.5-2.0) mmol/L C-Reactive Protein 2.09 H (< or = 0.50) mg/dL Ur Specific [place] >= 1.030 H (1.005-1.025) Urine Protein 300 (3+) H (Neg-Trace) mg/dL Urine Glucose (UA) >=1000 H (Negative) mg/dL Short CBC 11/22/24 Range/Units 11:01 WBC 9.8 (4.8-10.8) X10*3/uL Hgb 14.2 (14.0-18.0) g/dl Hct 42.8 (42.0-52.0) % Plt Count 336 (160-400) X10*3/uL BMP 11/22/24 11:01 Sodium 136 Potassium 3.7 Chloride 103 Carbon Dioxide 27 BUN 26 H Creatinine 1.00 Calcium 9.6 D Liver Function 11/22/24 Range/Units 11:01 Total Bilirubin 0.7 (0.0-1.0) mg/dL AST 23 (5-37) U/L ALT 14 (0-40) U/L Alkaline Phosphatase 115 (39-117) U/L Albumin 3.9 (3.5-5.0) g/dL Urine 11/22/24 Range/Units 13:27 Urine Color Yellow Urine Appearance Clear Urine pH 5.5 (5.0-9.0) Ur Specific [place] >= 1.030 H (1.005-1.025) Urine Protein 300 (3+) H (Neg-Trace) mg/dL Urine Glucose (UA) >=1000 H (Negative) mg/dL All other labs normal. Assessment and Plan (1) Ulcer of great toe: Qualifiers: Laterality: right Non-pressure ulcer stage: with fat layer exposed Qualified Code(s): L97.512 - Non-pressure chronic ulcer of other part of right foot with fat layer exposed Status: Acute Plan 54-year-old male patient with a history of diabetes mellitus and chronic kidney disease now with a nonhealing ulcer of his right great toe. The ulcer appears clean with no erythema or abscess appreciated. Recommend applying silver alginate dressings followed by dry sterile gauze daily to the open wound. [facility] following discharge for further management. Procedures Date of Service Date of Service: 11/22/24
[2024-11-22] MEDS: gadobutroL 10 ML VIAL IVPUSH (17:33)
[2024-11-22 18:00] VITALS: BMI 40.2
--- NOTE | 2024-11-22 18:04 | PC.NURSE ---
Addendum entered by Ayala Stevens 11/22/24 18:07: MAR updated to reflect pause. Original Note: vanco still infusing at 1655 when pt was transporting to MRI for scan - vanco paused d/t incompatibility w MRI. ~ 50% infused at time of pause.
--- NOTE | 2024-11-22 18:14 | PC.NURSE ---
Previous Left Great Toe Amp.
[2024-11-22 18:23] VITALS: BP 178/86; PULSE 72; RESP 18; TEMP 36.8; O2SAT 95
[2024-11-22 18:25] LABS: Glucose, Whole Blood 364 mg/dL (60-115)
[2024-11-22 18:27] LABS: Hematocrit 42.9 % (42.0-52.0); Hemoglobin 14.2 g/dl (14.0-18.0); Mean Corpuscular HGB Conc 33.1 g/dl (31.0-36.0); Mean Corpuscular Hemoglobin 28.3 pg (27.0-33.0); Mean Corpuscular Volume 85.6 fL (80.0-98.0); Mean Platelet Volume 9.3 fL (9.4-12.4); Platelet Count 313 X10*3/uL (160-400); Red Blood Count 5.01 X10*6/uL (4.60-5.80); Red Cell Distribution Width 14.1 % (11.0-16.0); White Blood Count 9.3 X10*3/uL (4.8-10.8)
[2024-11-22] MEDS: Insulin Lispro 100 UNIT/ML 3 ML VIAL SUBCUT ×2 (18:44→21:35)
[2024-11-22] MEDS: Baclofen 10 MG TABLET PO (18:45)
[2024-11-22 20:00] VITALS: BP 161/83; PULSE 69; RESP 17; TEMP 36.8; O2SAT 94
[2024-11-22 21:05] LABS: Glucose, Whole Blood 333 mg/dL (60-115)
[2024-11-22] MEDS: Gabapentin 400 MG CAPSULE 800 MG PO (21:24)
[2024-11-22] MEDS: Labetalol HCL 100 MG TABLET 300 MG PO (21:25)
[2024-11-22] MEDS: hydrALAZINE HCl 50 MG TABLET 100 MG PO (21:25)
[2024-11-22] MEDS: Atorvastatin Calcium 80 MG TABLET PO (21:25)
[2024-11-22] MEDS: HYDROmorphone HCl 1 MG/ML SYRINGE 1.5 MG IVPUSH (21:28)
[2024-11-22] MEDS: Insulin Glargine,Hum.rec.anlog 100 UNIT/ML 10 ML VIAL 90 UNIT SUBCUT (21:36)
[2024-11-22] MEDS: polyethylene glycoL 3350 17 GM POWD.PACK PO (21:41)
[2024-11-22] MEDS: 0.9 % Sodium Chloride Flush 3 ML SYRINGE IVFLUSH (23:24)
[2024-11-23] VITALS (9 sets, daily range): BP systolic 116–150; BP diastolic 56–73; PULSE 56–65; RESP 18–20; TEMP 36.2–36.4; O2SAT 94–97
[2024-11-23] MEDS: vancomycin HCL 1,250 MG in 0.9 % Sodium Chloride 250 ML 166.67 MG IV (02:20)
[2024-11-23] MEDS: Piperacillin Sodium/Tazobactam 3.375 GM in 0.9 % Sodium Chloride 50 ML IV ×4 (04:09→22:16)
[2024-11-23] MEDS: HYDROmorphone HCl 1 MG/ML SYRINGE 1.5 MG IVPUSH ×4 (04:18→22:07)
[2024-11-23] MEDS: Nicotine 14 MG PATCH.TD24 TRANSDERMA ×2 (05:03→21:05)
[2024-11-23 06:04] LABS: Hematocrit 41.9 % (42.0-52.0); Hemoglobin 13.8 g/dl (14.0-18.0); Mean Corpuscular HGB Conc 32.9 g/dl (31.0-36.0); Mean Corpuscular Hemoglobin 27.7 pg (27.0-33.0); Mean Platelet Volume 9.2 fL (9.4-12.4); Platelet Count 364 X10*3/uL (160-400); Red Blood Count 4.99 X10*6/uL (4.60-5.80); Red Cell Distribution Width 14.1 % (11.0-16.0); White Blood Count 17.8 X10*3/uL (4.8-10.8)
[2024-11-23] MEDS: Albuterol Sulfate (0.083%) 2.5 MG/3 ML VIAL.NEB INHALE ×2 (06:08→20:44)
[2024-11-23 06:24] LABS: Anion Gap 14 (12-20); Blood Urea Nitrogen 29 mg/dL (9-16); Calcium 9.3 mg/dL (8.4-10.2); Carbon Dioxide 25 mmol/L (22-29); Chloride 100 mmol/L (96-108); Estimated Glomerular Filt Rate > 60; Glucose Random 297 mg/dL (60-115); Magnesium 2.3 mg/dL (1.6-2.6); Potassium 4.3 mmol/L (3.3-5.1); Sodium 135 mmol/L (135-145)
[2024-11-23 07:20] LABS: Glucose, Whole Blood 290 mg/dL (60-115)
[2024-11-23] MEDS: Insulin Lispro 100 UNIT/ML 3 ML VIAL SUBCUT ×4 (07:41→21:45)
[2024-11-23] MEDS: 0.9 % Sodium Chloride Flush 3 ML SYRINGE IVFLUSH ×3 (07:41→22:11)
[2024-11-23] MEDS: Gabapentin 400 MG CAPSULE 800 MG PO ×3 (07:43→20:22)
[2024-11-23] MEDS: Acetaminophen 325 MG TABLET 975 MG PO ×3 (07:43→20:21)
[2024-11-23] MEDS: amLODIPine Besylate 5 MG TABLET PO (07:44)
[2024-11-23] MEDS: Losartan Potassium 50 MG TABLET 100 MG PO (07:44)
[2024-11-23] MEDS: Labetalol HCL 100 MG TABLET 300 MG PO (07:45)
[2024-11-23] MEDS: Empagliflozin 25 MG TABLET PO (07:45)
[2024-11-23] MEDS: hydrALAZINE HCl 50 MG TABLET 100 MG PO ×2 (07:45→16:13)
[2024-11-23] MEDS: polyethylene glycoL 3350 17 GM POWD.PACK PO ×2 (07:46→20:24)
[2024-11-23] MEDS: Baclofen 10 MG TABLET PO ×3 (07:46→20:23)
[2024-11-23] MEDS: Loratadine 10 MG TABLET PO (07:46)
[2024-11-23] MEDS: Tamsulosin HCL 0.4 MG CAPSULE PO (07:46)
--- NOTE | 2024-11-23 08:39 | PM.PNGS ---
Subjective Subjective Date of Service: 11/23/24 Interval history: Reports some back pain, would prefer p.o. pain meds rather than IV Physical Exam Vital Signs: Vital Signs: Last Vital Signs Temp 97.3 F 11/23/24 08:00 Pulse 60 11/23/24 08:00 Resp 18 11/23/24 08:00 BP 138/70 11/23/24 08:00 Pulse Ox 97 11/23/24 08:00 O2 Del Method Room Air 11/23/24 08:00 BMI result Body Mass Index 40.2 Const: General: no acute distress Nutritional Appearance: well nourished Orientation/consciousness: patient oriented x3 Resp: Effort & Inspection: normal respiratory effort Neuro: General: patient oriented x3 Extrem: Other: Right great toe examined. No dressing noted on wound. Wounds are clean with granulation tissue at the base. Silver alginate plus dry sterile dressings applied. Objective Data Active Medications Acetaminophen (Acetaminophen 325 Mg Tablet) 975 mg PO Q6H [facility] Last Admin: 11/23/24 07:43 Dose: 975 mg Documented By: PHONG Albuterol Sulfate (Albuterol Sulfate (0.083%) 2.5 Mg/3 Ml Vial.Neb) 2.5 mg INHALE Q3H PRN PRN Reason: Nausea and Vomiting Last Admin: 11/23/24 06:08 Dose: 2.5 mg Documented By: MODESTO Amlodipine Besylate (Amlodipine Besylate 5 Mg Tablet) 5 mg PO DAILY [facility]; Protocol Last Admin: 11/23/24 07:44 Dose: 5 mg Documented By: PHONG Atorvastatin Calcium (Atorvastatin Calcium 80 Mg Tablet) 80 mg PO BEDTIME [facility] Last Admin: 11/22/24 21:25 Dose: 80 mg Documented By: BRINDA Baclofen (Baclofen 10 Mg Tablet) 10 mg PO TID [facility] Last Admin: 11/23/24 07:46 Dose: 10 mg Documented By: PHONG Calcium Carbonate (Calcium Carbonate 750 Mg Tab.Chew) 750 mg PO Q4H PRN PRN Reason: Heartburn Clotrimazole (Clotrimazole 1 % Cream 15 Gm Tube) 1 appl TOPICAL BID [facility]; Protocol Last Admin: 11/22/24 22:29 Dose: Not Given Documented By: BRINDA Non-Admin Reason: Patient Asleep Dextrose (Dextrose 50 % 25 Gm/50 Ml Syringe) 25 gm IVPUSH Q15M PRN; Protocol PRN Reason: per Hypoglycemia Standing Ord. Empagliflozin (Empagliflozin 25 Mg Tablet) 25 mg PO DAILY [facility] Last Admin: 11/23/24 07:45 Dose: 25 mg Documented By: PHONG Gabapentin (Gabapentin 400 Mg Capsule) 800 mg PO TID [facility] Last Admin: 11/23/24 07:43 Dose: 800 mg Documented By: PHONG Glucose (Glucose Gel 15 Gm Gel..Gram.) 15 gm PO Q15M PRN; Protocol PRN Reason: per Hypoglycemia Standing Ord. Hydralazine HCl (Hydralazine Hcl 50 Mg Tablet) 100 mg PO TID [facility]; Protocol Last Admin: 11/23/24 07:45 Dose: 100 mg Documented By: PHONG Hydromorphone HCl (Hydromorphone Hcl 1 Mg/Ml Syringe) 1.5 mg IVPUSH Q4H PRN; Protocol PRN Reason: Pain, Severe (Pain Scale 7-10) Last Admin: 11/23/24 08:29 Dose: 1.5 mg Documented By: PHONG Piperacillin Sod/Tazobactam (Sod 3.375 gm/ Sodium Chloride) 50 mls @ 100 mls/hr IV Q8H [facility] Last Infusion: 11/23/24 04:42 Dose: Infused Documented By: BRINDA Vancomycin HCl 1,250 mg/ (Sodium Chloride) 250 mls @ 166.667 mls/hr IV Q12H [facility] Last Infusion: 11/23/24 04:10 Dose: Infused Documented By: BRINDA Insulin Glargine (Insulin Glargine,Hum.Rec.Anlog 100 Unit/Ml 10 Ml Vial) 90 unit SUBCUT BEDTIME [facility] Last Admin: 11/22/24 21:36 Dose: 90 unit Documented By: BRINDA Insulin Human Lispro (Insulin Lispro 100 Unit/Ml 3 Ml Vial) 0 unit SUBCUT QIDACHS [facility]; Protocol Last Admin: 11/23/24 07:41 Dose: 6 unit Documented By: PHONG Labetalol HCl (Labetalol Hcl 100 Mg Tablet) 300 mg PO BID [facility] Last Admin: 11/23/24 07:45 Dose: 300 mg Documented By: PHONG Loratadine (Loratadine 10 Mg Tablet) 10 mg PO DAILY [facility] Last Admin: 11/23/24 07:46 Dose: 10 mg Documented By: PHONG Losartan Potassium (Losartan Potassium 50 Mg Tablet) 100 mg PO DAILY [facility]; Protocol Last Admin: 11/23/24 07:44 Dose: 100 mg Documented By: PHONG Magnesium Hydroxide (Milk Of Magnesia 30 Ml Oral.Susp) 30 ml PO DAILY PRN PRN Reason: Constipation Melatonin (Melatonin 3 Mg Tablet) 6 mg PO BEDTIME PRN PRN Reason: Insomnia Oxycodone HCl (Oxycodone Hcl Immed Release 5 Mg Tablet) 5 mg PO Q4H PRN PRN Reason: Pain, Moderate(Pain Scale 4-6) Pharmacy Consult (Consult Rx Vancomycin Dosing) 1 each MISCELLANE DAILY PRN PRN Reason: Consult order Polyethylene Glycol (Polyethylene Glycol 3350 17 Gm Powd.Pack) 17 gm PO BID [facility] Last Admin: 11/23/24 07:46 Dose: 17 gm Documented By: PHONG Prochlorperazine Edisylate (Prochlorperazine Edisylate 10 Mg/2 Ml Vial) 5 mg IVPUSH Q6H PRN PRN Reason: Nausea and Vomiting Sodium Chloride (0.9 % Sodium Chloride Flush 3 Ml Syringe) 3 ml IVFLUSH QSHIFT [facility] Last Admin: 11/23/24 07:41 Dose: 3 ml Documented By: PHONG Tamsulosin HCl (Tamsulosin Hcl 0.4 Mg Capsule) 0.4 mg PO DAILY [facility] Last Admin: 11/23/24 07:46 Dose: 0.4 mg Documented By: PHONG Labs 11/23/24 05:33 11/23/24 05:33 Labs: Laboratory Results - last 24 hr 11/22/24 11/22/24 11/22/24 11:01 13:19 13:27 MCV 83.6 MCH 27.7 MCHC 33.2 RDW 14.0 Plt Count 336 MPV 9.1 L Immature Gran % (Auto) 0.5 H Neut % (Auto) 67.0 Lymph % (Auto) 20.9 [place] % (Auto) 7.0 Eos % (Auto) 3.6 Baso % (Auto) 1.0 Lymph # (Auto) 2.1 [place] # (Auto) 0.7 Eos # (Auto) 0.4 Baso # (Auto) 0.1 Abs Immat Gran (auto) 0.05 H Absolute Neuts (auto) 6.6 Absolute Nucleated RBC 0.000 Nucleated RBC % (auto) 0.0 ESR 54 H Anion Gap 10 L Estim Creat Clear Calc 109.8 Estimated GFR > 60 POC Glucose Random Glucose 159 H Lactic Acid 2.1 H* Lactic Acid F/U @ 2Hr 2.0 Calcium 9.6 D Magnesium 2.2 Total Bilirubin 0.7 AST 23 ALT 14 Alkaline Phosphatase 115 C-Reactive Protein 2.09 H B-Natriuretic Peptide 19 Total Protein 7.8 Albumin 3.9 Lipase 52 Urine Color Yellow Urine Appearance Clear Urine pH 5.5 Ur Specific [place] >= 1.030 H Urine Protein 300 (3+) H Urine Glucose (UA) >=1000 H Urine Ketones Negative Urine Blood Negative Urine Nitrite Negative Ur Leukocyte Esterase Negative Urine RBC 0-2 Urine WBC 0-5 Ur Squamous Epith Cells 0-2 Urine Bacteria None Seen Hyaline Casts 0-2 Influenza Type A (PCR) NEGATIVE Influenza Type B (PCR) NEGATIVE RSV RNA Qual (PCR) NEGATIVE SARS-CoV-2 RNA (RT-PCR) NEGATIVE 11/22/24 11/22/24 11/22/24 18:11 18:19 21:01 MCV 85.6 MCH 28.3 MCHC 33.1 RDW 14.1 Plt Count 313 MPV 9.3 L Immature Gran % (Auto) Neut % (Auto) Lymph % (Auto) [place] % (Auto) Eos % (Auto) Baso % (Auto) Lymph # (Auto) [place] # (Auto) Eos # (Auto) Baso # (Auto) Abs Immat Gran (auto) Absolute Neuts (auto) Absolute Nucleated RBC 0.000 Nucleated RBC % (auto) 0.0 ESR Anion Gap Estim Creat Clear Calc Estimated GFR POC Glucose 364 H* 333 H Random Glucose Lactic Acid Lactic Acid F/U @ 2Hr Calcium Magnesium Total Bilirubin AST ALT Alkaline Phosphatase C-Reactive Protein B-Natriuretic Peptide Total Protein Albumin Lipase Urine Color Urine Appearance Urine pH Ur Specific [place] Urine Protein Urine Glucose (UA) Urine Ketones Urine Blood Urine Nitrite Ur Leukocyte Esterase Urine RBC Urine WBC Ur Squamous Epith Cells Urine Bacteria Hyaline Casts Influenza Type A (PCR) Influenza Type B (PCR) RSV RNA Qual (PCR) SARS-CoV-2 RNA (RT-PCR) 11/23/24 11/23/24 05:33 07:08 MCV 84.0 MCH 27.7 MCHC 32.9 RDW 14.1 Plt Count 364 MPV 9.2 L Immature Gran % (Auto) Neut % (Auto) Lymph % (Auto) [place] % (Auto) Eos % (Auto) Baso % (Auto) Lymph # (Auto) [place] # (Auto) Eos # (Auto) Baso # (Auto) Abs Immat Gran (auto) Absolute Neuts (auto) Absolute Nucleated RBC 0.000 Nucleated RBC % (auto) 0.0 ESR Anion Gap 14 Estim Creat Clear Calc 98.0 Estimated GFR > 60 POC Glucose 290 H Random Glucose 297 H Lactic Acid Lactic Acid F/U @ 2Hr Calcium 9.3 Magnesium 2.3 Total Bilirubin AST ALT Alkaline Phosphatase C-Reactive Protein B-Natriuretic Peptide Total Protein Albumin Lipase Urine Color Urine Appearance Urine pH Ur Specific [place] Urine Protein Urine Glucose (UA) Urine Ketones Urine Blood Urine Nitrite Ur Leukocyte Esterase Urine RBC Urine WBC Ur Squamous Epith Cells Urine Bacteria Hyaline Casts Influenza Type A (PCR) Influenza Type B (PCR) RSV RNA Qual (PCR) SARS-CoV-2 RNA (RT-PCR) Procedures Date of Service Date of Service: 11/23/24 Progress Note: A&P Assessment and plan (1) Ulcer of great toe: Status: Acute Plan 54-year-old male patient presenting with a ulceration of the right great toe. Wounds are clean with no evidence of necrosis. Wounds dressed with silver alginate and dry sterile dressings. This should be changed on a daily basis. Order placed yesterday but not done. Patient should follow up with wound care upon discharge. I will sign off, reconsult as needed. Time Spent With Patient Time: Total time managing care of this patient today ____ minutes. Quality Stroke Does the patient have a stroke diagnosis?: No VTE Prior VTE?: No VTE Risk Level:: Medical - moderate - high VTE Device Contraindication: N/A - Device Ordered VTE Drug Contraindication: Treatment Not Indicated
[2024-11-23 11:21] LABS: Glucose, Whole Blood 337 mg/dL (60-115)
[2024-11-23] MEDS: Pantoprazole Sodium 40 MG/10 ML VIAL IVPUSH ×2 (12:08→17:23)
[2024-11-23] MEDS: oxyCODONE HCl Immed Release 5 MG TABLET PO ×3 (12:09→20:20)
[2024-11-23 12:25] LABS: Vancomycin Random 16.6 mcg/mL (15-20)
--- NOTE | 2024-11-23 13:03 | HO.PM.IMPN ---
Subjective Subjective Date of Service: 11/23/24 Interval History: seen and examined this morning follow up for multiple issues including foot wound, back pain, abdominal pain reporting 10/10 pain. no fever or chills Review of Systems Review of Systems: Yes all other systems are reviewed and are negative Constitutional Constitutional: Denies chills and Denies fever(s) Cardiovascular Cardiovascular: Denies dyspnea Respiratory Respiratory: Denies cough and Denies dyspnea Gastrointestinal Gastrointestinal: Denies nausea and Denies vomiting Physical Exam Vital Signs: Vital Signs: Last Vital Signs Temp 97.3 F 11/23/24 08:00 Pulse 60 11/23/24 08:00 Resp 18 11/23/24 08:00 BP 138/70 11/23/24 08:00 Pulse Ox 97 11/23/24 08:00 O2 Del Method Room Air 11/23/24 08:00 BMI result Body Mass Index 40.2 Const: General: cooperative, alert and awake Nutritional Appearance: obese Orientation/consciousness: patient oriented x3 Neuro: General: patient oriented x3, moves all extremities and CN's II-XI intact bilaterally Objective Data Active Medications Acetaminophen (Acetaminophen 325 Mg Tablet) 975 mg PO Q6H [facility] Last Admin: 11/23/24 07:43 Dose: 975 mg Documented By: PHONG Albuterol Sulfate (Albuterol Sulfate (0.083%) 2.5 Mg/3 Ml Vial.Neb) 2.5 mg INHALE Q3H PRN PRN Reason: Nausea and Vomiting Last Admin: 11/23/24 06:08 Dose: 2.5 mg Documented By: MODESTO Amlodipine Besylate (Amlodipine Besylate 5 Mg Tablet) 5 mg PO DAILY [facility]; Protocol Last Admin: 11/23/24 07:44 Dose: 5 mg Documented By: PHONG Atorvastatin Calcium (Atorvastatin Calcium 80 Mg Tablet) 80 mg PO BEDTIME [facility] Last Admin: 11/22/24 21:25 Dose: 80 mg Documented By: BRINDA Baclofen (Baclofen 10 Mg Tablet) 10 mg PO TID [facility] Last Admin: 11/23/24 07:46 Dose: 10 mg Documented By: PHONG Calcium Carbonate (Calcium Carbonate 750 Mg Tab.Chew) 750 mg PO Q4H PRN PRN Reason: Heartburn Clotrimazole (Clotrimazole 1 % Cream 15 Gm Tube) 1 appl TOPICAL BID [facility]; Protocol Last Admin: 11/23/24 12:08 Dose: Not Given Documented By: PHONG Non-Admin Reason: Med Not Available Dextrose (Dextrose 50 % 25 Gm/50 Ml Syringe) 25 gm IVPUSH Q15M PRN; Protocol PRN Reason: per Hypoglycemia Standing Ord. Empagliflozin (Empagliflozin 25 Mg Tablet) 25 mg PO DAILY [facility] Last Admin: 11/23/24 07:45 Dose: 25 mg Documented By: PHONG Gabapentin (Gabapentin 400 Mg Capsule) 800 mg PO TID [facility] Last Admin: 11/23/24 07:43 Dose: 800 mg Documented By: PHONG Glucose (Glucose Gel 15 Gm Gel..Gram.) 15 gm PO Q15M PRN; Protocol PRN Reason: per Hypoglycemia Standing Ord. Hydralazine HCl (Hydralazine Hcl 50 Mg Tablet) 100 mg PO TID [facility]; Protocol Last Admin: 11/23/24 07:45 Dose: 100 mg Documented By: PHONG Hydromorphone HCl (Hydromorphone Hcl 1 Mg/Ml Syringe) 1.5 mg IVPUSH Q4H PRN; Protocol PRN Reason: Pain, Severe (Pain Scale 7-10) Last Admin: 11/23/24 08:29 Dose: 1.5 mg Documented By: PHONG Piperacillin Sod/Tazobactam (Sod 3.375 gm/ Sodium Chloride) 50 mls @ 100 mls/hr IV Q6H [facility] Last Infusion: 11/23/24 12:54 Dose: Infused Documented By: PHONG Vancomycin HCl 1,000 mg/ (Sodium Chloride) 270 mls @ 270 mls/hr IV Q12H [facility] Insulin Glargine (Insulin Glargine,Hum.Rec.Anlog 100 Unit/Ml 10 Ml Vial) 90 unit SUBCUT BEDTIME [facility] Last Admin: 11/22/24 21:36 Dose: 90 unit Documented By: BRINDA Insulin Human Lispro (Insulin Lispro 100 Unit/Ml 3 Ml Vial) 0 unit SUBCUT QIDACHS [facility]; Protocol Last Admin: 11/23/24 12:09 Dose: 8 unit Documented By: HPONG Labetalol HCl (Labetalol Hcl 100 Mg Tablet) 300 mg PO BID [facility] Last Admin: 11/23/24 07:45 Dose: 300 mg Documented By: PHONG Loratadine (Loratadine 10 Mg Tablet) 10 mg PO DAILY [facility] Last Admin: 11/23/24 07:46 Dose: 10 mg Documented By: PHONG Losartan Potassium (Losartan Potassium 50 Mg Tablet) 100 mg PO DAILY [facility]; Protocol Last Admin: 11/23/24 07:44 Dose: 100 mg Documented By: PHONG Magnesium Hydroxide (Milk Of Magnesia 30 Ml Oral.Susp) 30 ml PO DAILY PRN PRN Reason: Constipation Melatonin (Melatonin 3 Mg Tablet) 6 mg PO BEDTIME PRN PRN Reason: Insomnia Oxycodone HCl (Oxycodone Hcl Immed Release 5 Mg Tablet) 5 mg PO Q4H PRN PRN Reason: Pain, Moderate(Pain Scale 4-6) Last Admin: 11/23/24 12:09 Dose: 5 mg Documented By: PHONG Pantoprazole Sodium (Pantoprazole Sodium 40 Mg/10 Ml Vial) 40 mg IVPUSH BID@0630,1630 [facility] Last Admin: 11/23/24 12:08 Dose: 40 mg Documented By: PHONG Pharmacy Consult (Consult Rx Vancomycin Dosing) 1 each MISCELLANE DAILY PRN PRN Reason: Consult order Polyethylene Glycol (Polyethylene Glycol 3350 17 Gm Powd.Pack) 17 gm PO BID [facility] Last Admin: 11/23/24 07:46 Dose: 17 gm Documented By: PHONG Prochlorperazine Edisylate (Prochlorperazine Edisylate 10 Mg/2 Ml Vial) 5 mg IVPUSH Q6H PRN PRN Reason: Nausea and Vomiting Sodium Chloride (0.9 % Sodium Chloride Flush 3 Ml Syringe) 3 ml IVFLUSH QSHIFT [facility] Last Admin: 11/23/24 07:41 Dose: 3 ml Documented By: PHONG Tamsulosin HCl (Tamsulosin Hcl 0.4 Mg Capsule) 0.4 mg PO DAILY [facility] Last Admin: 11/23/24 07:46 Dose: 0.4 mg Documented By: PHONG Labs 11/23/24 05:33 11/23/24 05:33 Labs: Laboratory Results - last 24 hr 11/22/24 11/22/24 11/22/24 13:19 13:27 18:11 MCV 85.6 MCH 28.3 MCHC 33.1 RDW 14.1 Plt Count 313 MPV 9.3 L Absolute Nucleated RBC 0.000 Nucleated RBC % (auto) 0.0 Anion Gap Estim Creat Clear Calc Estimated GFR POC Glucose Random Glucose Lactic Acid F/U @ 2Hr 2.0 Calcium Magnesium Urine Color Yellow Urine Appearance Clear Urine pH 5.5 Ur Specific [place] >= 1.030 H Urine Protein 300 (3+) H Urine Glucose (UA) >=1000 H Urine Ketones Negative Urine Blood Negative Urine Nitrite Negative Ur Leukocyte Esterase Negative Urine RBC 0-2 Urine WBC 0-5 Ur Squamous Epith Cells 0-2 Urine Bacteria None Seen Hyaline Casts 0-2 Random Vancomycin 11/22/24 11/22/24 11/23/24 18:19 21:01 05:33 MCV 84.0 MCH 27.7 MCHC 32.9 RDW 14.1 Plt Count 364 MPV 9.2 L Absolute Nucleated RBC 0.000 Nucleated RBC % (auto) 0.0 Anion Gap 14 Estim Creat Clear Calc 98.0 Estimated GFR > 60 POC Glucose 364 H* 333 H Random Glucose 297 H Lactic Acid F/U @ 2Hr Calcium 9.3 Magnesium 2.3 Urine Color Urine Appearance Urine pH Ur Specific [place] Urine Protein Urine Glucose (UA) Urine Ketones Urine Blood Urine Nitrite Ur Leukocyte Esterase Urine RBC Urine WBC Ur Squamous Epith Cells Urine Bacteria Hyaline Casts Random Vancomycin 11/23/24 11/23/24 11/23/24 07:08 11:11 11:55 MCV MCH MCHC RDW Plt Count MPV Absolute Nucleated RBC Nucleated RBC % (auto) Anion Gap Estim Creat Clear Calc Estimated GFR POC Glucose 290 H 337 H Random Glucose Lactic Acid F/U @ 2Hr Calcium Magnesium Urine Color Urine Appearance Urine pH Ur Specific [place] Urine Protein Urine Glucose (UA) Urine Ketones Urine Blood Urine Nitrite Ur Leukocyte Esterase Urine RBC Urine WBC Ur Squamous Epith Cells Urine Bacteria Hyaline Casts Random Vancomycin 16.6 Assessment and Plan (1) Abdominal pain: Status: Acute (2) Wound of foot: Status: Acute (3) Low back pain: Status: Acute Plan Gallo Saini is a 54 y/o male with history of chronic neck and shoulder pain s/p ACDF C4-C5 (Dr. Singh -2013), hx of etoh abuse in remission, anxiety, depression, obesity, MAURI, asthma, DM II chronic low back and leg pain, h/o lumbar spine abscess/osteo who presents with multiple symptoms including abdominal pain, rectal bleeding, vomiting, right 1st toe pain, back pain acute on chronic lower back pain with radiation down right leg upon review on chart pt has long history of chronic back pain. 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 Abdominal and pelvis CT scan - showed no evidence of colitis or diverticulosis showing constipation ?source of discomfort; pt insistent pain is from colon polyps seen on colonoscopy done years ago at [facility] H&H fairly stable, will repeat this afternoon; no overt rectal bleeding noted stool occult pending seen by GI, attempting to obtain previous colonoscopy report from [facility], further management based on clinical course Treat constipation with miralax Right 1st toe ulcer due to DM Right foot MRI negative for osteomyelitis, shows tenosynovitis seen by surgery - no acute surgical intervention required at this time Outpatient follow-up with [facility]. Continue current wound care recommendations IV vanco/zosyn blood cultures negative Right kidney solid mass (1.7) per documentation from [facility] previously documented right renal lesion dating back to 2014 and was reportedly slow growing so less likely to be cancer pt was unable to provide further insight no need for inpatient consultation - can follow up outpatient - wants to transfer care to [facility] urology Lactic acidosis, resolved. Likely secondary to vomiting. No sepsis criteria. vomiting resolved Type 2 diabetes mellitus. Diabetic diet. Continue Lantus, insulin sliding scale and Jardiance. Trulicity not formulary. Check hemoglobin A1c. Essential hypertension. Continue labetalol, losartan, hydralazine and amlodipine. Chlorthalidone on hold due to vomiting (to avoid further dehydration). asthma unspecified no acute exacerbation Albuterol inhalers p.r.n.. Hyperlipidemia. Continue atorvastatin. Obstructive sleep apnea. Nocturnal BiPAP. Obesity, BMI 40.9 kg/m2. Weight loss. BPH. Continue tamsulosin. Code status: Full DVT prophylaxis: SCDs Requires ongoing inpatient stay for Acute back pain, rectal bleeding, infected right 1st toe ulcer with IV pain meds, IV antibiotics Quality Stroke Does the patient have a stroke diagnosis?: No VTE Prior VTE?: No VTE Risk Level:: Medical - moderate - high VTE Device Contraindication: N/A - Device Ordered VTE Drug Contraindication: Treatment Not Indicated
[2024-11-23 14:35] LABS: Estimated Average Glucose 263 mg/dL; Hemoglobin A1C 341.4486 umol/L; Hemoglobin A1c % 10.8 % (<6.0); Total Hemoglobin (HGBA1C) 3612.9454 umol/L
[2024-11-23] MEDS: gadobutroL 10 ML VIAL IVPUSH (14:53)
[2024-11-23 15:35] LABS: Hematocrit 38.5 % (42.0-52.0); Hemoglobin 12.8 g/dl (14.0-18.0)
[2024-11-23 15:42] LABS: Estimated Average Glucose 263 mg/dL; Hemoglobin A1C 315.6034 umol/L; Hemoglobin A1c % 10.8 % (<6.0); Total Hemoglobin (HGBA1C) 3355.4715 umol/L
[2024-11-23] MEDS: vancomycin HCL 1,000 MG in 0.9 % Sodium Chloride 250 ML 270 MG IV (16:07)
[2024-11-23 16:32] LABS: Glucose, Whole Blood 257 mg/dL (60-115)
[2024-11-23 20:12] LABS: Glucose, Whole Blood 218 mg/dL (60-115)
[2024-11-23] MEDS: Atorvastatin Calcium 80 MG TABLET PO (20:23)
[2024-11-23] MEDS: Docusate Sodium 100 MG CAPSULE 200 MG PO (21:05)
[2024-11-24] VITALS (10 sets, daily range): BP systolic 134–154; BP diastolic 67–75; PULSE 58–74; RESP 14–20; TEMP 36.2–36.6; O2SAT 94–97
[2024-11-24] MEDS: HYDROmorphone HCl 1 MG/ML SYRINGE 1.5 MG IVPUSH ×6 (02:06→23:45)
[2024-11-24] MEDS: Acetaminophen 325 MG TABLET 975 MG PO ×4 (02:08→19:50)
[2024-11-24] MEDS: vancomycin HCL 1,000 MG in 0.9 % Sodium Chloride 250 ML 270 MG IV (02:12)
--- NOTE | 2024-11-24 04:06 | PC.NURSE ---
This RN assumed care at 1900, AOX4, pleasant, calm and cooperative. Reports severe back pain 03/22, described as excruciating, burning, numbness. Some expiratory wheezing heard on lung assessment, RR non-labored able to speak in in full sentences, Respiratory called for PRN duoneb, with good effect. Large, round abd, BSx4, tender in the LLQ, hard & dry bowel movement on 11/23, causing increased pain, colace requested by this RN, once order given. R great toe chronic DM ulcer, dsg CDI, left foot prior great toe amputation, + pedal pulses, non-pitting to BLE. CPAP in use, VSS. Call caba within reach, Will continue to reassess.
[2024-11-24] MEDS: oxyCODONE HCl Immed Release 5 MG TABLET PO ×4 (05:21→22:57)
[2024-11-24] MEDS: Piperacillin Sodium/Tazobactam 3.375 GM in 0.9 % Sodium Chloride 50 ML IV ×4 (05:27→23:01)
[2024-11-24] MEDS: Pantoprazole Sodium 40 MG/10 ML VIAL IVPUSH ×2 (05:30→16:57)
[2024-11-24 06:19] LABS: Hematocrit 39.9 % (42.0-52.0); Hemoglobin 13.2 g/dl (14.0-18.0); Mean Corpuscular HGB Conc 33.1 g/dl (31.0-36.0); Mean Corpuscular Volume 84.5 fL (80.0-98.0); Mean Platelet Volume 9.3 fL (9.4-12.4); Platelet Count 283 X10*3/uL (160-400); Red Blood Count 4.72 X10*6/uL (4.60-5.80); Red Cell Distribution Width 14.5 % (11.0-16.0); White Blood Count 10.8 X10*3/uL (4.8-10.8)
[2024-11-24 06:37] LABS: Creatinine Clr Calc Pharmacy 95.4; Estimated Glomerular Filt Rate > 60
[2024-11-24 07:23] LABS: Glucose, Whole Blood 267 mg/dL (60-115)
[2024-11-24] MEDS: polyethylene glycoL 3350 17 GM POWD.PACK PO ×2 (08:07→19:56)
[2024-11-24] MEDS: Gabapentin 400 MG CAPSULE 800 MG PO ×3 (08:08→19:52)
[2024-11-24] MEDS: Empagliflozin 25 MG TABLET PO (08:08)
[2024-11-24] MEDS: Insulin Lispro 100 UNIT/ML 3 ML VIAL SUBCUT ×4 (08:08→20:09)
[2024-11-24] MEDS: hydrALAZINE HCl 50 MG TABLET 100 MG PO ×3 (08:08→19:53)
[2024-11-24] MEDS: Losartan Potassium 50 MG TABLET 100 MG PO (08:09)
[2024-11-24] MEDS: Loratadine 10 MG TABLET PO (08:10)
[2024-11-24] MEDS: amLODIPine Besylate 5 MG TABLET PO (08:10)
[2024-11-24] MEDS: Labetalol HCL 100 MG TABLET 300 MG PO ×2 (08:10→19:54)
[2024-11-24] MEDS: Tamsulosin HCL 0.4 MG CAPSULE PO (08:10)
[2024-11-24] MEDS: Baclofen 10 MG TABLET PO ×3 (08:11→19:51)
[2024-11-24] MEDS: 0.9 % Sodium Chloride Flush 3 ML SYRINGE IVFLUSH ×3 (08:18→23:48)
[2024-11-24] MEDS: Albuterol Sulfate (0.083%) 2.5 MG/3 ML VIAL.NEB INHALE ×2 (08:33→23:03)
--- NOTE | 2024-11-24 09:19 | HO.PM.IMPN ---
Subjective Subjective Date of Service: 11/24/24 Interval History: c/o back pain which is not new no new neurological symptoms Physical Exam Vital Signs: Vital Signs: Last Vital Signs Temp 97.6 F 11/24/24 07:07 Pulse 69 11/24/24 08:33 Resp 18 11/24/24 08:33 BP 147/67 H 11/24/24 07:07 Pulse Ox 96 11/24/24 07:07 O2 Del Method Room Air 11/24/24 07:07 BMI result Body Mass Index 40.2 Const: General: cooperative, alert and awake Nutritional Appearance: obese Orientation/consciousness: patient oriented x3 Neuro: General: patient oriented x3, moves all extremities and CN's II-XI intact bilaterally Objective Data Active Medications Acetaminophen (Acetaminophen 325 Mg Tablet) 975 mg PO Q6H [facility] Last Admin: 11/24/24 08:09 Dose: 975 mg Documented By: DEVIKA Albuterol Sulfate (Albuterol Sulfate (0.083%) 2.5 Mg/3 Ml Vial.Neb) 2.5 mg INHALE Q3H PRN PRN Reason: Nausea and Vomiting Last Admin: 11/24/24 08:33 Dose: 2.5 mg Documented By: ODETTE Amlodipine Besylate (Amlodipine Besylate 5 Mg Tablet) 5 mg PO DAILY [facility]; Protocol Last Admin: 11/24/24 08:10 Dose: 5 mg Documented By: DEVIKA Atorvastatin Calcium (Atorvastatin Calcium 80 Mg Tablet) 80 mg PO BEDTIME [facility] Last Admin: 11/23/24 20:23 Dose: 80 mg Documented By: MARYJO Baclofen (Baclofen 10 Mg Tablet) 10 mg PO TID [facility] Last Admin: 11/24/24 08:11 Dose: 10 mg Documented By: DEVIKA Calcium Carbonate (Calcium Carbonate 750 Mg Tab.Chew) 750 mg PO Q4H PRN PRN Reason: Heartburn Clotrimazole (Clotrimazole 1 % Cream 15 Gm Tube) 1 appl TOPICAL BID [facility]; Protocol Last Admin: 11/23/24 21:37 Dose: Not Given Documented By: MARYJO Non-Admin Reason: Med Not Available Dextrose (Dextrose 50 % 25 Gm/50 Ml Syringe) 25 gm IVPUSH Q15M PRN; Protocol PRN Reason: per Hypoglycemia Standing Ord. Empagliflozin (Empagliflozin 25 Mg Tablet) 25 mg PO DAILY [facility] Last Admin: 11/24/24 08:08 Dose: 25 mg Documented By: DEVIKA Gabapentin (Gabapentin 400 Mg Capsule) 800 mg PO TID [facility] Last Admin: 11/24/24 08:08 Dose: 800 mg Documented By: DEVIKA Glucose (Glucose Gel 15 Gm Gel..Gram.) 15 gm PO Q15M PRN; Protocol PRN Reason: per Hypoglycemia Standing Ord. Hydralazine HCl (Hydralazine Hcl 50 Mg Tablet) 100 mg PO TID [facility]; Protocol Last Admin: 11/24/24 08:08 Dose: 100 mg Documented By: DEVIKA Hydromorphone HCl (Hydromorphone Hcl 1 Mg/Ml Syringe) 1.5 mg IVPUSH Q4H PRN; Protocol PRN Reason: Pain, Severe (Pain Scale 7-10) Last Admin: 11/24/24 06:08 Dose: 1.5 mg Documented By: MARYJO Piperacillin Sod/Tazobactam (Sod 3.375 gm/ Sodium Chloride) 50 mls @ 100 mls/hr IV Q6H [facility] Last Infusion: 11/24/24 05:57 Dose: Infused Documented By: MARYJO Vancomycin HCl 1,000 mg/ (Sodium Chloride) 270 mls @ 270 mls/hr IV Q12H [facility] Last Infusion: 11/24/24 03:44 Dose: Infused Documented By: MARYJO Insulin Glargine (Insulin Glargine,Hum.Rec.Anlog 100 Unit/Ml 10 Ml Vial) 90 unit SUBCUT BEDTIME [facility] Last Admin: 11/23/24 22:06 Dose: Not Given Documented By: MARYJO Non-Admin Reason: low POC Insulin Human Lispro (Insulin Lispro 100 Unit/Ml 3 Ml Vial) 0 unit SUBCUT QIDACHS [facility]; Protocol Last Admin: 11/24/24 08:08 Dose: 6 unit Documented By: DEVIKA Labetalol HCl (Labetalol Hcl 100 Mg Tablet) 300 mg PO BID [facility] Last Admin: 11/24/24 08:10 Dose: 300 mg Documented By: DEVIKA Loratadine (Loratadine 10 Mg Tablet) 10 mg PO DAILY [facility] Last Admin: 11/24/24 08:10 Dose: 10 mg Documented By: DEVIKA Losartan Potassium (Losartan Potassium 50 Mg Tablet) 100 mg PO DAILY [facility]; Protocol Last Admin: 11/24/24 08:09 Dose: 100 mg Documented By: DEVIKA Magnesium Hydroxide (Milk Of Magnesia 30 Ml Oral.Susp) 30 ml PO DAILY PRN PRN Reason: Constipation Melatonin (Melatonin 3 Mg Tablet) 6 mg PO BEDTIME PRN PRN Reason: Insomnia Oxycodone HCl (Oxycodone Hcl Immed Release 5 Mg Tablet) 5 mg PO Q4H PRN PRN Reason: Pain, Moderate(Pain Scale 4-6) Last Admin: 11/24/24 05:21 Dose: 5 mg Documented By: MARYJO Comments: per pt request oxy 03/22 severe pain Pantoprazole Sodium (Pantoprazole Sodium 40 Mg/10 Ml Vial) 40 mg IVPUSH BID@0630,1630 [facility] Last Admin: 11/24/24 05:30 Dose: 40 mg Documented By: MARYJO Pharmacy Consult (Consult Rx Vancomycin Dosing) 1 each MISCELLANE DAILY PRN PRN Reason: Consult order Polyethylene Glycol (Polyethylene Glycol 3350 17 Gm Powd.Pack) 17 gm PO BID [facility] Last Admin: 11/24/24 08:07 Dose: 17 gm Documented By: DEVIKA Prochlorperazine Edisylate (Prochlorperazine Edisylate 10 Mg/2 Ml Vial) 5 mg IVPUSH Q6H PRN PRN Reason: Nausea and Vomiting Sodium Chloride (0.9 % Sodium Chloride Flush 3 Ml Syringe) 3 ml IVFLUSH QSHIFT [facility] Last Admin: 11/24/24 08:18 Dose: 3 ml Documented By: DEVIKA Tamsulosin HCl (Tamsulosin Hcl 0.4 Mg Capsule) 0.4 mg PO DAILY [facility] Last Admin: 11/24/24 08:10 Dose: 0.4 mg Documented By: DEVIKA Labs 11/24/24 05:39 11/24/24 05:39 Labs: Laboratory Results - last 24 hr 11/23/24 11/23/24 11/23/24 05:33 11:11 11:55 MCV MCH MCHC RDW Plt Count MPV Absolute Nucleated RBC Nucleated RBC % (auto) Estim Creat Clear Calc Estimated GFR POC Glucose 337 H Estimat Average Glucose 263 Hemoglobin A1c % 10.8 H Random Vancomycin 16.6 11/23/24 11/23/24 11/23/24 15:29 16:19 19:36 MCV MCH MCHC RDW Plt Count MPV Absolute Nucleated RBC Nucleated RBC % (auto) Estim Creat Clear Calc Estimated GFR POC Glucose 257 H 218 H Estimat Average Glucose 263 Hemoglobin A1c % 10.8 H Random Vancomycin 11/24/24 11/24/24 05:39 07:11 MCV 84.5 MCH 28.0 MCHC 33.1 RDW 14.5 Plt Count 283 MPV 9.3 L Absolute Nucleated RBC 0.000 Nucleated RBC % (auto) 0.0 Estim Creat Clear Calc 95.4 Estimated GFR > 60 POC Glucose 267 H Estimat Average Glucose Hemoglobin A1c % Random Vancomycin Microbiology Microbiology Results: Microbiology 11/22/24 11:01 Blood Culture - Preliminary Blood - Venous No growth after 24 hours. 11/22/24 11:01 Blood Culture - Preliminary Blood - Venous No growth after 24 hours. Assessment and Plan (1) Abdominal pain: Status: Acute (2) Wound of foot: Status: Acute (3) Low back pain: Status: Acute Plan Gallo Saini is a 54 y/o male with history of chronic neck and shoulder pain s/p ACDF C4-C5 (Dr. Singh -2013), hx of etoh abuse in remission, anxiety, depression, obesity, MAURI, asthma, DM II chronic low back and leg pain, h/o lumbar spine abscess/osteo who presents with multiple symptoms including abdominal pain, rectal bleeding, vomiting, right 1st toe pain, back pain acute on chronic lower back pain with radiation down right leg upon review on chart pt has long history of chronic back pain. 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 This could be related to infection, inflammation, or trauma. continue current management for pain control with IV narcotics, Tylenol, baclofen and gabapentin continue IV vanco and zosyn ID consult LLQ pain + rectal bleeding (BRBPR). Abdominal and pelvis CT scan - showed no evidence of colitis or diverticulosis showing constipation ?source of discomfort; pt insistent pain is from colon polyps seen on colonoscopy done years ago at [facility] H&H fairly stable, will repeat this afternoon; no overt rectal bleeding noted stool occult pending seen by GI, attempting to obtain previous colonoscopy report from [facility], further management based on clinical course Treat constipation with miralax Right 1st toe ulcer due to DM Right foot MRI negative for osteomyelitis, shows tenosynovitis seen by surgery - no acute surgical intervention required at this time Outpatient follow-up with [facility]. Continue current wound care recommendations IV vanco/zosyn blood cultures negative Right kidney solid mass (1.7) per documentation from [facility] previously documented right renal lesion dating back to 2014 and was reportedly slow growing so less likely to be cancer pt was unable to provide further insight no need for inpatient consultation - can follow up outpatient - wants to transfer care to [facility] urology Lactic acidosis, resolved. Likely secondary to vomiting. No sepsis criteria. vomiting resolved Type 2 diabetes mellitus. Diabetic diet. Continue Lantus, insulin sliding scale and Jardiance. Trulicity not formulary. Check hemoglobin A1c. Essential hypertension. Continue labetalol, losartan, hydralazine and amlodipine. Chlorthalidone on hold due to vomiting (to avoid further dehydration). asthma unspecified no acute exacerbation Albuterol inhalers p.r.n.. Hyperlipidemia. Continue atorvastatin. Obstructive sleep apnea. Nocturnal BiPAP. Obesity, BMI 40.9 kg/m2. Weight loss. BPH. Continue tamsulosin. Code status: Full DVT prophylaxis: SCDs Requires ongoing inpatient stay for Acute back pain, rectal bleeding, infected right 1st toe ulcer with IV pain meds, IV antibiotics Quality Stroke Does the patient have a stroke diagnosis?: No VTE Prior VTE?: No VTE Risk Level:: Medical - moderate - high VTE Device Contraindication: N/A - Device Ordered VTE Drug Contraindication: Treatment Not Indicated
[2024-11-24 11:12] LABS: Glucose, Whole Blood 254 mg/dL (60-115)
[2024-11-24] MEDS: Clotrimazole 1 % Cream 15 GM TUBE 1 APPL TOPICAL ×2 (12:13→19:46)
[2024-11-24 12:24] LABS: Vancomycin Random 13.8 mcg/mL (15-20)
[2024-11-24] MEDS: Nicotine 14 MG PATCH.TD24 TRANSDERMA (12:30)
[2024-11-24] MEDS: vancomycin HCL 1,250 MG in 0.9 % Sodium Chloride 250 ML 166.67 MG IV (15:01)
[2024-11-24] MEDS: bisacodyL 5 MG TABLET.DR 10 MG PO (15:02)
--- NOTE | 2024-11-24 15:42 | MHC.CM.PN ---
CM ATTEMPTED TO MEET WITH PT WHO WAS SLEEPING, CM WILL RETURN PER HIS REQUEST IMM DELIVERED
[2024-11-24 16:34] LABS: Glucose, Whole Blood 195 mg/dL (60-115)
[2024-11-24 19:38] LABS: OBS Int Ctl Valid YES
[2024-11-24 19:43] LABS: OBS1 NEGATIVE (NEGATIVE)
[2024-11-24 19:50] LABS: Amphetamine Screen Urine Not Detected (Not Detect); Barbiturates, Urine Not Detected (Not Detect); Benzodiazepines Screen Urine Not Detected (Not Detect); Buprenorphine Scr Not Detected (Not Detect); Cannabinoid Screen Urine POSITIVE (Not Detect); Cocaine Screen Urine Not Detected (Not Detect); Fentanyl, urine Not Detected (Not Detect); Methadone Screen, Urine Not Detected (Not Detect); Opiate Screen Urine Not Detected (Not Detect); Oxycodone Screen Urine Positive (Not Detect); Phencyclidine Screen Urine Not Detected (Not Detect)
[2024-11-24] MEDS: Docusate Sodium 100 MG CAPSULE PO (19:50)
[2024-11-24] MEDS: Atorvastatin Calcium 80 MG TABLET PO (19:51)
[2024-11-24 20:23] LABS: Glucose, Whole Blood 204 mg/dL (60-115)
--- NOTE | 2024-11-25 00:01 | P.CNID_ITS ---
History of Present Illness Data of Consult Service Date: 11/23/24 Requesting physician: Graeme Taylor Primary Care Provider: Milena Shoemaker MD [facility] Reason for consult: multiple complaints, LS spine and right great toe He presents with abdominal and back pain right great toe discomfort last week Review of Systems 2 Review of Systems: Yes all other systems are reviewed and are negative PMFSH Past Medical History Medical History Amputation toe (~08/2023) Ulcer of great toe Asthma Severe obesity Mood disorder MAURI (obstructive sleep apnea) Type 2 diabetes mellitus HLD (hyperlipidemia) HTN (hypertension) Family History Family history: reviewed and not pertinent Social History Social History Household Members: Children Housing: Apartment Do you presently have visiting nurse or other home services: No Alcohol intake: never 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 Tobacco Use Status: Current everyday Tobacco user Tobacco use type: Cigarette Cigarette Packs Per Day: 20 Cigarettes Per Day: 400.0 e-Cigarette/Vaping Use: Never Used Second Hand Smoke Exposure: No Substance Use Type: Marijuana Advance Directives Date on File: 08/30/23 service: No Meds Allergies Allergy/AdvReac Type Severity Reaction Status Date / Time coconut Allergy Rash Verified 11/22/24 10:21 naproxen [From NAPROSYN] AdvReac Severe STOMACH Verified 11/22/24 10:20 UPSET cefepime AdvReac Intermediate Rash Verified 11/22/24 10:20 lisinopril [LISINOPRIL] AdvReac Mild COUGH Verified 11/22/24 10:20 SEAFOOD Allergy Unknown ANAPHYLAXIS Uncoded 11/22/24 10:20 Active Medications: Current Medications Acetaminophen (Acetaminophen 325 Mg Tablet) 975 mg PO Q6H [facility] Last Admin: 11/24/24 19:50 Dose: 975 mg Albuterol Sulfate (Albuterol Sulfate (0.083%) 2.5 Mg/3 Ml Vial.Neb) 2.5 mg INHALE Q3H PRN PRN Reason: Nausea and Vomiting Last Admin: 11/24/24 23:03 Dose: 2.5 mg Amlodipine Besylate (Amlodipine Besylate 5 Mg Tablet) 5 mg PO DAILY [facility]; Protocol Last Admin: 11/24/24 08:10 Dose: 5 mg Atorvastatin Calcium (Atorvastatin Calcium 80 Mg Tablet) 80 mg PO BEDTIME [facility] Last Admin: 11/24/24 19:51 Dose: 80 mg Baclofen (Baclofen 10 Mg Tablet) 10 mg PO TID [facility] Last Admin: 11/24/24 19:51 Dose: 10 mg Calcium Carbonate (Calcium Carbonate 750 Mg Tab.Chew) 750 mg PO Q4H PRN PRN Reason: Heartburn Clotrimazole (Clotrimazole 1 % Cream 15 Gm Tube) 1 appl TOPICAL BID [facility]; Protocol Last Admin: 11/24/24 19:46 Dose: 1 appl Dextrose (Dextrose 50 % 25 Gm/50 Ml Syringe) 25 gm IVPUSH Q15M PRN; Protocol PRN Reason: per Hypoglycemia Standing Ord. Docusate Sodium (Docusate Sodium 100 Mg Capsule) 100 mg PO BID [facility] Last Admin: 11/24/24 19:50 Dose: 100 mg Empagliflozin (Empagliflozin 25 Mg Tablet) 25 mg PO DAILY [facility] Last Admin: 11/24/24 08:08 Dose: 25 mg Gabapentin (Gabapentin 400 Mg Capsule) 800 mg PO TID [facility] Last Admin: 11/24/24 19:52 Dose: 800 mg Glucose (Glucose Gel 15 Gm Gel..Gram.) 15 gm PO Q15M PRN; Protocol PRN Reason: per Hypoglycemia Standing Ord. Hydralazine HCl (Hydralazine Hcl 50 Mg Tablet) 100 mg PO TID [facility]; Protocol Last Admin: 11/24/24 19:53 Dose: 100 mg Hydromorphone HCl (Hydromorphone Hcl 1 Mg/Ml Syringe) 1.5 mg IVPUSH Q4H PRN; Protocol PRN Reason: Pain, Severe (Pain Scale 7-10) Last Admin: 11/24/24 23:45 Dose: 1.5 mg Piperacillin Sod/Tazobactam (Sod 3.375 gm/ Sodium Chloride) 50 mls @ 100 mls/hr IV Q6H [facility] Last Infusion: 11/24/24 23:31 Dose: Infused Vancomycin HCl 1,250 mg/ (Sodium Chloride) 250 mls @ 166.667 mls/hr IV Q12H [facility] Last Infusion: 11/24/24 17:39 Dose: Infused Insulin Glargine (Insulin Glargine,Hum.Rec.Anlog 100 Unit/Ml 10 Ml Vial) 90 unit SUBCUT BEDTIME [facility] Last Admin: 11/24/24 20:07 Dose: Not Given Insulin Human Lispro (Insulin Lispro 100 Unit/Ml 3 Ml Vial) 0 unit SUBCUT QIDACHS [facility]; Protocol Last Admin: 11/24/24 20:09 Dose: 4 unit Labetalol HCl (Labetalol Hcl 100 Mg Tablet) 300 mg PO BID [facility] Last Admin: 11/24/24 19:54 Dose: 300 mg Loratadine (Loratadine 10 Mg Tablet) 10 mg PO DAILY [facility] Last Admin: 11/24/24 08:10 Dose: 10 mg Losartan Potassium (Losartan Potassium 50 Mg Tablet) 100 mg PO DAILY [facility]; Protocol Last Admin: 11/24/24 08:09 Dose: 100 mg Magnesium Hydroxide (Milk Of Magnesia 30 Ml Oral.Susp) 30 ml PO DAILY PRN PRN Reason: Constipation Melatonin (Melatonin 3 Mg Tablet) 6 mg PO BEDTIME PRN PRN Reason: Insomnia Nicotine (Nicotine 14 Mg Patch.Td24) 14 mg TRANSDERMA DAILY [facility] Last Admin: 11/24/24 12:30 Dose: 14 mg Oxycodone HCl (Oxycodone Hcl Immed Release 5 Mg Tablet) 5 mg PO Q4H PRN PRN Reason: Pain, Moderate(Pain Scale 4-6) Last Admin: 11/24/24 22:57 Dose: 5 mg Pantoprazole Sodium (Pantoprazole Sodium 40 Mg/10 Ml Vial) 40 mg IVPUSH BID@0630,1630 [facility] Last Admin: 11/24/24 16:57 Dose: 40 mg Pharmacy Consult (Consult Rx Vancomycin Dosing) 1 each MISCELLANE DAILY PRN PRN Reason: Consult order Polyethylene Glycol (Polyethylene Glycol 3350 17 Gm Powd.Pack) 17 gm PO BID [facility] Last Admin: 11/24/24 19:56 Dose: 17 gm Prochlorperazine Edisylate (Prochlorperazine Edisylate 10 Mg/2 Ml Vial) 5 mg IVPUSH Q6H PRN PRN Reason: Nausea and Vomiting Sodium Chloride (0.9 % Sodium Chloride Flush 3 Ml Syringe) 3 ml IVFLUSH QSHIFT [facility] Last Admin: 11/24/24 23:48 Dose: 3 ml Tamsulosin HCl (Tamsulosin Hcl 0.4 Mg Capsule) 0.4 mg PO DAILY [facility] Last Admin: 11/24/24 08:10 Dose: 0.4 mg Home Medications ?Medication ?Instructions ?Recorded ?Confirmed ?Last Taken ?Type albuterol sulfate 90 mcg/actuation 2 puff inhalation Q4H PRN Wheezing 08/15/23 11/22/24 08/29/23 History aerosol inhaler (Ventolin HFA) atorvastatin 80 mg tablet 80 mg PO BEDTIME 08/15/23 11/22/24 11/21/24 History baclofen 10 mg tablet 10 mg PO TID 08/15/23 11/22/24 11/22/24 History cetirizine 10 mg tablet 10 mg PO DAILY 08/15/23 11/22/24 11/22/24 History chlorthalidone 50 mg tablet 50 mg PO DAILY 08/15/23 11/22/24 11/22/24 History empagliflozin 25 mg tablet 25 mg PO DAILY 08/15/23 11/22/24 11/22/24 History (Jardiance) epinephrine 0.3 mg/0.3 mL 0.3 mg IM DIRECTED PRN Allergic 08/15/23 11/22/24 Unknown History injection, auto-injector Reaction fluticasone propionate 50 1 spray intranasal BID PRN Allergy 08/15/23 11/22/24 Unknown History mcg/actuation nasal Symptoms spray,suspension gabapentin 800 mg tablet 800 mg PO TID 08/15/23 11/22/24 11/22/24 History losartan 100 mg tablet 100 mg PO DAILY 08/15/23 11/22/24 11/22/24 History magnesium oxide 400 mg (241.3 mg 400 mg PO DAILY 08/15/23 11/22/24 11/22/24 History magnesium) tablet oxycodone 5 mg tablet 5 mg PO Q6H PRN severe pain 08/15/23 11/22/24 01/01/24 History tamsulosin 0.4 mg capsule 0.4 mg PO DAILY 08/15/23 11/22/24 11/22/24 History insulin glargine 100 unit/mL (3 90 unit subcut BEDTIME 08/29/23 11/22/24 11/19/24 History mL) subcutaneous pen (Basaglar Mable U-100 Insulin) acetaminophen 650 mg 650 mg PO Q8H PRN pain 01/02/24 11/22/24 Unknown History tablet,extended release hydralazine 100 mg tablet 100 mg PO TID 06/25/24 11/22/24 11/22/24 History labetalol 300 mg tablet 300 mg PO BID 06/25/24 11/22/24 11/22/24 History ondansetron HCl 4 mg tablet 4 mg PO Q8H PRN Nausea And Vomiting 06/25/24 11/22/24 Unknown History clotrimazole-betamethasone 1 1 appl topical BID PRN Rash 11/22/24 11/22/24 Unknown History %-0.05 % topical cream dulaglutide 3 mg/0.5 mL 3 mg subcut FR 11/22/24 11/22/24 3 Weeks Ago History subcutaneous pen injector ~11/01/24 ([facility]) insulin aspart U-100 100 unit/mL 10 unit subcut TIDAC 11/22/24 11/22/24 11/22/24 History subcutaneous solution (Novolog U-100 Insulin aspart) Physical Exam 2 Vital Signs: Vital Signs: Last Vital Signs Temp 97.9 F 11/24/24 19:49 Pulse 64 11/24/24 23:04 Resp 18 11/24/24 23:04 BP 147/72 H 11/24/24 19:54 Pulse Ox 97 11/24/24 19:49 O2 Del Method Room Air 11/24/24 19:49 BMI result Body Mass Index 40.2 Const: General: cooperative HEENT: Head: Yes normal to inspection Face and sinus: Yes normal facial exam Mouth: Normal oral and palatal mucosa present Teeth and gingiva: d entition normal Eyes: General: appearance normal, both eyes and all related structures P upils: Equal, round and reactive pupils present Resp: Effort & Inspection: normal respiratory effort Cardio: Rate: regular rate Rhythm: regular rhythm GI: Palpation (GI): Soft to palpation and nontender : General: Yes no CVA tenderness Back/Spine/Pelvis: Back: no CVA tenderness Skin: General skin exam: no rashes or lesions noted Neuro: General: moves all extremities Cranial nerves: Yes Equal, round and reactive pupils present Extrem: Other: right great toe reddened neuropathy Psych: Appearance: grossly normal Results Labs 11/24/24 05:39 11/24/24 05:39 Labs: Short CBC 11/24/24 Range/Units 05:39 WBC 10.8 (4.8-10.8) X10*3/uL Hgb 13.2 L (14.0-18.0) g/dl Hct 39.9 L (42.0-52.0) % Plt Count 283 (160-400) X10*3/uL BMP 11/24/24 05:39 Creatinine 1.14 Microbiology Microbiology Results: Microbiology 11/22/24 11:01 Blood - Venous Blood Culture - Preliminary No growth after 48 hours. 11/22/24 11:01 Blood - Venous Blood Culture - Preliminary No growth after 48 hours. Assessment and Plan (1) Rectal bleeding: Status: Acute (2) Abdominal pain: Qualifiers: Abdominal location: left lower quadrant Qualified Code(s): R10.32 - Left lower quadrant pain Status: Acute (3) Low back pain: Qualifiers: Back pain laterality: right Chronicity: acute Sciatica laterality: s ciatica of right side Sciatica presence: with sciatica Qualified Code(s): M 54.41 - Lumbago with sciatica, right side Status: Acute (4) Wound of foot: Status: Acute Plan No definite OM back or foot. No definite place for IV antibiotics at this time Would give po Augmentin and Doxycycline for 10 days cover foot cellulitis/wound
[2024-11-25] MEDS: vancomycin HCL 1,250 MG in 0.9 % Sodium Chloride 250 ML 166.67 MG IV ×2 (02:37→13:49)
[2024-11-25 03:25] VITALS: BP 150/77; PULSE 54; RESP 16; TEMP 36.2; O2SAT 97
[2024-11-25] MEDS: Acetaminophen 325 MG TABLET 975 MG PO ×4 (03:26→20:20)
[2024-11-25] MEDS: oxyCODONE HCl Immed Release 5 MG TABLET PO ×3 (03:28→22:58)
[2024-11-25] MEDS: Piperacillin Sodium/Tazobactam 3.375 GM in 0.9 % Sodium Chloride 50 ML IV ×4 (04:42→22:52)
[2024-11-25] MEDS: Pantoprazole Sodium 40 MG/10 ML VIAL IVPUSH ×2 (05:22→16:59)
[2024-11-25 07:06] LABS: Estimated Glomerular Filt Rate > 60
[2024-11-25 07:49] LABS: Glucose, Whole Blood 188 mg/dL (60-115)
[2024-11-25 07:53] VITALS: BP 145/71; PULSE 57; RESP 16; TEMP 36.2; O2SAT 96
[2024-11-25] MEDS: Nicotine 14 MG PATCH.TD24 TRANSDERMA (08:25)
[2024-11-25] MEDS: Insulin Lispro 100 UNIT/ML 3 ML VIAL SUBCUT ×4 (08:25→21:06)
[2024-11-25] MEDS: polyethylene glycoL 3350 17 GM POWD.PACK PO (08:26)
[2024-11-25] MEDS: Losartan Potassium 50 MG TABLET 100 MG PO (08:26)
[2024-11-25] MEDS: amLODIPine Besylate 5 MG TABLET PO (08:27)
[2024-11-25] MEDS: Gabapentin 400 MG CAPSULE 800 MG PO ×3 (08:27→20:20)
[2024-11-25] MEDS: Labetalol HCL 100 MG TABLET 300 MG PO ×2 (08:27→20:21)
[2024-11-25] MEDS: Tamsulosin HCL 0.4 MG CAPSULE PO (08:27)
[2024-11-25] MEDS: Empagliflozin 25 MG TABLET PO (08:27)
[2024-11-25] MEDS: Loratadine 10 MG TABLET PO (08:27)
[2024-11-25] MEDS: Docusate Sodium 100 MG CAPSULE PO (08:27)
[2024-11-25] MEDS: Baclofen 10 MG TABLET PO ×3 (08:27→20:20)
[2024-11-25] MEDS: hydrALAZINE HCl 50 MG TABLET 100 MG PO ×3 (08:28→20:21)
[2024-11-25] MEDS: 0.9 % Sodium Chloride Flush 3 ML SYRINGE IVFLUSH ×3 (08:37→20:23)
[2024-11-25] MEDS: HYDROmorphone HCl 1 MG/ML SYRINGE 1.5 MG IVPUSH (08:50)
[2024-11-25] MEDS: Clotrimazole 1 % Cream 15 GM TUBE 1 APPL TOPICAL (08:50)
[2024-11-25 11:52] LABS: Glucose, Whole Blood 249 mg/dL (60-115)
[2024-11-25 12:27] LABS: Vancomycin Random 16.2 mcg/mL (15-20)
--- NOTE | 2024-11-25 12:40 | HE.PHANOTE ---
re [facility] patients level came back this afternoon at 16.2 up from 13.8. will keep patients dose the same as scr has greatly improved, down to 0.85 today from 1.14 yesterday. will get level tomorrow 11/26 @1200 to ensure safety vs efficacy. With improved renal function the level may become lower.
[2024-11-25] MEDS: bisacodyL 5 MG TABLET.DR 10 MG PO (13:50)
[2024-11-25 15:22] VITALS: BP 139/75; PULSE 55; RESP 18; TEMP 36.6; O2SAT 97
--- NOTE | 2024-11-25 16:09 | MHC.CM.PN ---
PT REPORTS HE LIVES WITH HIS SON AND IS INDEPENDENT WITH CARE HE HAS A CPAP FOR DME AND NO SERVICES HCP ON FILE PCP: D[facility] IMM DELIVERED DCP: HOME VIA PRIVATE TRANSPORT
[2024-11-25 16:18] LABS: Glucose, Whole Blood 258 mg/dL (60-115)
--- NOTE | 2024-11-25 17:06 | P.PNIM_ITS ---
Subjective Subjective Date of Service: 11/25/24 Interval History: seen and examined this morning follow up for back pain, abdominal pain Review of Systems Review of Systems: Yes all other systems are reviewed and are negative Constitutional Constitutional: Denies chills and Denies fever(s) Physical Exam 2 Vital Signs: Vital Signs: Last Vital Signs Temp 97.9 F 11/25/24 15:22 Pulse 55 11/25/24 15:22 Resp 18 11/25/24 15:22 BP 139/75 11/25/24 15:22 Pulse Ox 97 11/25/24 15:22 O2 Del Method CPAP 11/25/24 15:22 BMI result Body Mass Index 40.2 Const: General: cooperative, alert and awake Nutritional Appearance: obese Orientation/consciousness: patient oriented x3 Resp: Effort & Inspection: normal respiratory effort, able to speak in complete sentences, no respiratory distress and no use of accessory muscles Cardio: Rate: regular rate GI: Inspection: No distended Palpation (GI): Soft to palpation Neuro: General: patient oriented x3, moves all extremities and CN's II-XI intact bilaterally Objective Data Active Medications Acetaminophen (Acetaminophen 325 Mg Tablet) 975 mg PO Q6H [facility] Last Admin: 11/25/24 13:50 Dose: 975 mg Documented By: DEVIKA Albuterol Sulfate (Albuterol Sulfate (0.083%) 2.5 Mg/3 Ml Vial.Neb) 2.5 mg INHALE Q3H PRN PRN Reason: Nausea and Vomiting Last Admin: 11/24/24 23:03 Dose: 2.5 mg Documented By: SOL Amlodipine Besylate (Amlodipine Besylate 5 Mg Tablet) 5 mg PO DAILY [facility]; Protocol Last Admin: 11/25/24 08:27 Dose: 5 mg Documented By: DEVIKA Atorvastatin Calcium (Atorvastatin Calcium 80 Mg Tablet) 80 mg PO BEDTIME [facility] Last Admin: 11/24/24 19:51 Dose: 80 mg Documented By: MARYJO Baclofen (Baclofen 10 Mg Tablet) 10 mg PO TID [facility] Last Admin: 11/25/24 15:33 Dose: 10 mg Documented By: DEVIKA Calcium Carbonate (Calcium Carbonate 750 Mg Tab.Chew) 750 mg PO Q4H PRN PRN Reason: Heartburn Clotrimazole (Clotrimazole 1 % Cream 15 Gm Tube) 1 appl TOPICAL BID [facility]; Protocol Last Admin: 11/25/24 08:50 Dose: 1 appl Documented By: DEVIKA Dextrose (Dextrose 50 % 25 Gm/50 Ml Syringe) 25 gm IVPUSH Q15M PRN; Protocol PRN Reason: per Hypoglycemia Standing Ord. Docusate Sodium (Docusate Sodium 100 Mg Capsule) 100 mg PO BID [facility] Last Admin: 11/25/24 08:27 Dose: 100 mg Documented By: DEVIKA Empagliflozin (Empagliflozin 25 Mg Tablet) 25 mg PO DAILY [facility] Last Admin: 11/25/24 08:27 Dose: 25 mg Documented By: DEVIKA Gabapentin (Gabapentin 400 Mg Capsule) 800 mg PO TID [facility] Last Admin: 11/25/24 15:33 Dose: 800 mg Documented By: DEVIKA Glucose (Glucose Gel 15 Gm Gel..Gram.) 15 gm PO Q15M PRN; Protocol PRN Reason: per Hypoglycemia Standing Ord. Hydralazine HCl (Hydralazine Hcl 50 Mg Tablet) 100 mg PO TID [facility]; Protocol Last Admin: 11/25/24 15:33 Dose: 100 mg Documented By: DEVIKA Hydromorphone HCl (Hydromorphone Hcl 1 Mg/Ml Syringe) 1.25 mg IVPUSH Q4H PRN; Protocol PRN Reason: Pain, Severe (Pain Scale 7-10) Piperacillin Sod/Tazobactam (Sod 3.375 gm/ Sodium Chloride) 50 mls @ 100 mls/hr IV Q6H [facility] Last Admin: 11/25/24 16:59 Dose: 100 mls/hr Documented By: DEVIKA Vancomycin HCl 1,250 mg/ (Sodium Chloride) 250 mls @ 166.667 mls/hr IV Q12H [facility] Last Infusion: 11/25/24 15:32 Dose: Infused Documented By: DEVIKA Insulin Glargine (Insulin Glargine,Hum.Rec.Anlog 100 Unit/Ml 10 Ml Vial) 90 unit SUBCUT BEDTIME [facility] Last Admin: 11/24/24 20:07 Dose: Not Given Documented By: MARYJO Non-Admin Reason: lowPOC/pt refused Insulin Human Lispro (Insulin Lispro 100 Unit/Ml 3 Ml Vial) 0 unit SUBCUT QIDACHS [facility]; Protocol Last Admin: 11/25/24 16:59 Dose: 6 unit Documented By: DEVIKA Labetalol HCl (Labetalol Hcl 100 Mg Tablet) 300 mg PO BID [facility] Last Admin: 11/25/24 08:27 Dose: 300 mg Documented By: DEVIKA Loratadine (Loratadine 10 Mg Tablet) 10 mg PO DAILY [facility] Last Admin: 11/25/24 08:27 Dose: 10 mg Documented By: DEVIKA Losartan Potassium (Losartan Potassium 50 Mg Tablet) 100 mg PO DAILY [facility]; Protocol Last Admin: 11/25/24 08:26 Dose: 100 mg Documented By: DEVIKA Magnesium Hydroxide (Milk Of Magnesia 30 Ml Oral.Susp) 30 ml PO DAILY PRN PRN Reason: Constipation Melatonin (Melatonin 3 Mg Tablet) 6 mg PO BEDTIME PRN PRN Reason: Insomnia Nicotine (Nicotine 14 Mg Patch.Td24) 14 mg TRANSDERMA DAILY [facility] Last Admin: 11/25/24 08:25 Dose: 14 mg Documented By: DEVIKA Oxycodone HCl (Oxycodone Hcl Immed Release 5 Mg Tablet) 5 mg PO Q4H PRN PRN Reason: Pain, Moderate(Pain Scale 4-6) Last Admin: 11/25/24 11:23 Dose: 5 mg Documented By: DEVIKA Pantoprazole Sodium (Pantoprazole Sodium 40 Mg/10 Ml Vial) 40 mg IVPUSH BID@0630,1630 [facility] Last Admin: 11/25/24 16:59 Dose: 40 mg Documented By: DEVIKA Pharmacy Consult (Consult Rx Vancomycin Dosing) 1 each MISCELLANE DAILY PRN PRN Reason: Consult order Polyethylene Glycol (Polyethylene Glycol 3350 17 Gm Powd.Pack) 17 gm PO BID [facility] Last Admin: 11/25/24 08:26 Dose: 17 gm Documented By: DEVIKA Prochlorperazine Edisylate (Prochlorperazine Edisylate 10 Mg/2 Ml Vial) 5 mg IVPUSH Q6H PRN PRN Reason: Nausea and Vomiting Sodium Chloride (0.9 % Sodium Chloride Flush 3 Ml Syringe) 3 ml IVFLUSH QSHIFT [facility] Last Admin: 11/25/24 17:03 Dose: 3 ml Documented By: DEVIKA Tamsulosin HCl (Tamsulosin Hcl 0.4 Mg Capsule) 0.4 mg PO DAILY [facility] Last Admin: 11/25/24 08:27 Dose: 0.4 mg Documented By: DEVIKA Labs 11/24/24 05:39 11/25/24 05:58 Labs: Laboratory Results - last 24 hr 11/24/24 11/24/24 11/25/24 19:24 19:57 05:58 Hold Purple Top SEE NOTE Estim Creat Clear Calc 128.0 Estimated GFR > 60 POC Glucose 204 H Stool Occult Blood NEGATIVE Random Vancomycin Urine Opiates Screen Not Detected Ur Buprenorphine Scrn Not Detected Ur Oxycodone Screen Positive H Urine Methadone Screen Not Detected Urine Fentanyl Screen Not Detected Ur Barbiturates Screen Not Detected Ur Phencyclidine Scrn Not Detected Ur Amphetamines Screen Not Detected U Benzodiazepines Scrn Not Detected Urine Cocaine Screen Not Detected U Marijuana (THC) Screen POSITIVE H 11/25/24 11/25/24 11/25/24 07:22 11:41 12:02 Hold Purple Top Estim Creat Clear Calc Estimated GFR POC Glucose 188 H 249 H Stool Occult Blood Random Vancomycin 16.2 Urine Opiates Screen Ur Buprenorphine Scrn Ur Oxycodone Screen Urine Methadone Screen Urine Fentanyl Screen Ur Barbiturates Screen Ur Phencyclidine Scrn Ur Amphetamines Screen U Benzodiazepines Scrn Urine Cocaine Screen U Marijuana (THC) Screen 11/25/24 16:11 Hold Purple Top Estim Creat Clear Calc Estimated GFR POC Glucose 258 H Stool Occult Blood Random Vancomycin Urine Opiates Screen Ur Buprenorphine Scrn Ur Oxycodone Screen Urine Methadone Screen Urine Fentanyl Screen Ur Barbiturates Screen Ur Phencyclidine Scrn Ur Amphetamines Screen U Benzodiazepines Scrn Urine Cocaine Screen U Marijuana (THC) Screen Microbiology Microbiology Results: Microbiology 11/22/24 11:01 Blood Culture - Preliminary Blood - Venous No growth after 48 hours. 11/22/24 11:01 Blood Culture - Preliminary Blood - Venous No growth after 48 hours. Assessment and Plan (1) Abdominal pain: Status: Acute (2) Rectal bleeding: Status: Acute Plan Gallo Saini is a 54 y/o male with history of chronic neck and shoulder pain s/p ACDF C4-C5 (Dr. Singh -2013), hx of etoh abuse in remission, anxiety, depression, obesity, MAURI, asthma, DM II chronic low back and leg pain, h/o lumbar spine abscess/osteo who presents with multiple symptoms including abdominal pain, rectal bleeding, vomiting, right 1st toe pain, back pain acute on chronic lower back pain with radiation down right leg upon review on chart pt has long history of chronic back pain. has been seen by ortho and pain management at [facility] he does however also have history of lumbar spine septic arthritis and abscess in august [address] transfer [facility], he completed residential abx at that time given previous history of infection and leukocytosis, MRI done 11/23 and show T here is a small area of soft tissue hyperenhancement at L3-4 between the spinous processes and right of midline within multifidus muscle. This could be related to infection, inflammation, or trauma.-> per neurosurgery at [facility], no acute surgical intervention required. recommend outpatient follow up continue current management for pain control with IV narcotics, Tylenol, baclofen continue baseline gabapentin and oxycodone wean IV narcotics LLQ pain + rectal bleeding (BRBPR). Abdominal and pelvis CT scan - showed no evidence of colitis or diverticulosis showing constipation ?source of discomfort; pt insistent pain is from colon polyps seen on colonoscopy done years ago at [facility] H&H fairly stable, will repeat this afternoon; no overt rectal bleeding noted stool occult negative seen by GI, attempting to obtain previous colonoscopy report from [facility] Treat constipation with miralax plan for flex sig 11/24 but abdominal pain improving, no bleeding, H/H stable; likely can be scheduled as outpatient Right 1st toe ulcer due to DM Right foot MRI negative for osteomyelitis, shows tenosynovitis seen by surgery - no acute surgical intervention required at this time Outpatient follow-up with [facility]. Continue current wound care recommendations IV vanco/zosyn. seen by ID no definite OM back or foot, plan for augmentin and doxycycline for 10 days blood cultures negative Right kidney solid mass (1.7) per documentation from [facility] previously documented right renal lesion dating back to 2014 and was reportedly slow growing so less likely to be cancer pt was unable to provide further insight no need for inpatient consultation - can follow up outpatient - wants to transfer care to [facility] urology Lactic acidosis, resolved. Likely secondary to vomiting. No sepsis criteria. vomiting resolved Type 2 diabetes mellitus. Diabetic diet. Continue Lantus, insulin sliding scale and Jardiance. Trulicity not formulary. Check hemoglobin A1c. Essential hypertension. Continue labetalol, losartan, hydralazine and amlodipine. Chlorthalidone on hold due to vomiting (to avoid further dehydration). asthma unspecified no acute exacerbation Albuterol inhalers p.r.n.. Hyperlipidemia. Continue atorvastatin. Obstructive sleep apnea. Nocturnal BiPAP. Obesity, BMI 40.9 kg/m2. Weight loss. BPH. Continue tamsulosin. tobacco dependence smoking cessation advised Code status: Full DVT prophylaxis: SCDs Requires ongoing inpatient stay for Acute back pain, rectal bleeding, infected right 1st toe ulcer with IV pain meds, IV antibiotics Quality Stroke Does the patient have a stroke diagnosis?: No VTE Prior VTE?: No VTE Risk Level:: Medical - moderate - high VTE Device Contraindication: N/A - Device Ordered VTE Drug Contraindication: Treatment Not Indicated
[2024-11-25] MEDS: HYDROmorphone HCl 1 MG/ML SYRINGE 1.25 MG IVPUSH (17:13)
--- NOTE | 2024-11-25 17:33 | PM.DS ---
DS: Providers Provider Date of Service: 11/26/24 <Lorraine Chauhan NP - Last Filed: 11/26/24 11:02> Date of admission: 11/22/24 13:28 <DAPHNIE Brar - Last Filed: 11/25/24 17:45> Date of discharge: 11/26/24 <Lorraine Chauhan NP - Last Filed: 11/26/24 11:02> Primary care physician: Milena Shoemaker MD <DAPHNIE Brar - Last Filed: 11/25/24 17:45> Consults: 11/22/24 14:10 Consult to Gastroenterology Routine Consulting Provider: Jaxon Dasilva Reason for consultation: Rectal bleeding Has provider been notified: No 11/22/24 14:14 Consult to General Surgery Routine Consulting Provider: [facility] Reason for consultation: Right 1st toe infected plantar ulcer Has provider been notified: No 11/22/24 15:05 Consult to Wound Care Routine Reason for consultation: Right 1st toe infected diabetic ulcer 11/22/24 18:06 Consult to Wound Care Routine Reason for consultation: diabetic foot ulcer 11/23/24 15:42 Consult to Infectious Diseases Routine Consulting Provider: [facility] Reason for consultation: ?early osteo R great toe; back pain MRI hyperenhancement multifidus muscle Has provider been notified: No 11/24/24 01:35 Consult to Wound Care Routine Reason for consultation: large red rash reported by patient to R shoulder and chest. DM ulcer R foot <DAPHNIE Brar - Last Filed: 11/25/24 17:45> DS: Diagnosis Discharge Diagnosis (1) Abdominal pain: Status: Acute <DAPHNIE Brar - Last Filed: 11/25/24 17:45> (2) Rectal bleeding: Status: Acute <DAPHNIE Brar - Last Filed: 11/25/24 17:45> DS: Summary Hospital Course Hospital Course: History and physical as per admitting provider. Gallo Saini is a 54 years old man with past medical history significant for type 2 diabetes mellitus, obesity, asthma, hyperlipidemia and obstructive sleep apnea was brought to the emergency department via EMS with a plethora of acute symptoms including LLQ pain radiating to the back associated with rectal bleeding (not mixed with stools). He also complained of right lower back pain radiating to the right 1st toe which he attributes to chronic back issues. Both pains have intensity of 10/10. He also complained of nausea and had 1 event of nonbloody vomiting Ativan. He did not report any headache, dizziness or palpitations. He did complain of shortness on breath and wheezing that resolved after receiving breathing treatment. He did not report chest pain. That is not fever or chills. In the ED he was found to have stable vital signs. Last blood pressure is 142/59. Blood workup showed no leukocytosis. CRP is elevated, 2.09. Hemoglobin is normal, 14.2 and platelets is 336. There is minimal lactic acidosis of 2.1 (it has normalized). LFTs and lipase are normal. BNP is normal. Urinalysis showed elevated specific gravity, proteinuria and glucosuria. There is no blood or RBCs. COVID-19 for influenza, RSV are negative. CXR is negative. Right side x-ray is remarkable for soft tissue swelling of the great toe extending into to medial midfoot concerning for osteomyelitis. Abdominal pelvis CT scan showed 1.7 cm solid mass of the posterior aspect of the upper pole of the right kidney and moderate amount of stool throughout the colon. ED tx: Zosyn 3.375 g, Dilaudid 2 mg IV total, Zofran 4 mg IV, famotidine 20 mg IV, DuoNeb x1, LR 1 L, diazepam 2.5 mg IV acute on chronic lower back pain with radiation down right leg upon review on chart pt has long history of chronic back pain. has [place]o and [place] [facility] is on chronic narcotics at baseline. 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 given previous history of infection and leukocytosis, MRI done 11/23 and show There is a small area of soft tissue hyperenhancement at L3-4 between the spinous processes and right of midline within multifidus muscle. This could be related to infection, inflammation, or trauma.-> per neurosurgery [place] [facility] no acute surgical intervention required. recommend outpatient follow up. Treated with Tylenol, baclofen and continued on baseline gabapentin and oxycodone. Significant relief from hot pack. able to ambulate, no red flag symptoms. LLQ pain + rectal bleeding (BRBPR). Abdominal and pelvis CT scan - showed no evidence of colitis or diverticulosis showing constipation ?source of discomfort; pt insistent pain is from colon polyps seen on colonoscopy done years ago at [facility] H/H has remained stable, no overt rectal bleeding noted. stool occult negative seen by GI, symptoms improve with Treated of constipation with miralax and colace. Flexible sigmoidoscopy initially planned 11/24 but abdominal pain improving, no bleeding, H/H stable and per GI can be scheduled as outpatient. Right 1st toe ulcer due to DM Right foot MRI negative for osteomyelitis, shows tenosynovitis. seen by surgery - no acute surgical intervention required at this time. Outpatient follow-up with [facility] recommended. Continue current wound care recommendations. Treated with IV vanco/zosyn inpatient. seen by ID no definite OM back or foot, plan for augmentin and doxycycline for 10 days. blood cultures have remained negative <DAPHNIE Brar - Last Filed: 11/25/24 17:45> Time Attestation Discharge Coordination Time (in mins): 35 <DAPHNIE Brar - Last Filed: 11/25/24 17:45> Quality: Safe Use of Opioids Does Pt have an Active Cancer Diagnosis on the Problem List?: No <DAPHNIE Brar - Last Filed: 11/25/24 17:45> Quality: Stroke Does the patient have a stroke diagnosis?: No <DAPHNIE Brar - Last Filed: 11/25/24 17:45> Physical Exam Vital Signs: Vital Signs: Last Vital Signs Temp 97.9 F 11/25/24 15:22 Pulse 55 11/25/24 15:22 Resp 18 11/25/24 15:22 BP 139/75 11/25/24 15:22 Pulse Ox 97 11/25/24 15:22 O2 Del Method CPAP 11/25/24 15:22 BMI result Body Mass Index 40.2 <DAPHNIE Brar Last Filed: 11/25/24 17:45> Appearing in no acute distress head is normocephalic atraumatic eyes pupils are PERRLA sclera is anicteric mouth throat mucous membranes are intact and moist neck is supple no lymphadenopathy, no JVD noted lung sounds are clear to auscultation heart regular rate rhythm, clear S1, S2 positive bowel sounds, abdomen is soft, nontender neuro patient is alert x3, no focal deficits <Lorraine Chauhan NP - Last Filed: 11/26/24 11:02> DS: Data Data Completed and Pending Completed studies during hospitalization [Text1]: Procedures Detachment at Left 1st Toe, Complete, Open Approach (08/15/23) <DAPHNIE Brar - Last Filed: 11/25/24 17:45> Labs on day of discharge: Laboratory Results - last 24 hr 11/24/24 11/24/24 11/25/24 19:24 19:57 05:58 Hold Purple Top SEE NOTE Creatinine 0.85 Estim Creat Clear Calc 128.0 Estimated GFR > 60 POC Glucose 204 H Stool Occult Blood NEGATIVE Random Vancomycin Urine Opiates Screen Not Detected Ur Buprenorphine Scrn Not Detected Ur Oxycodone Screen Positive H Urine Methadone Screen Not Detected Urine Fentanyl Screen Not Detected Ur Barbiturates Screen Not Detected Ur Phencyclidine Scrn Not Detected Ur Amphetamines Screen Not Detected U Benzodiazepines Scrn Not Detected Urine Cocaine Screen Not Detected U Marijuana (THC) Screen POSITIVE H 11/25/24 11/25/24 11/25/24 07:22 11:41 12:02 Hold Purple Top Creatinine Estim Creat Clear Calc Estimated GFR POC Glucose 188 H 249 H Stool Occult Blood Random Vancomycin 16.2 Urine Opiates Screen Ur Buprenorphine Scrn Ur Oxycodone Screen Urine Methadone Screen Urine Fentanyl Screen Ur Barbiturates Screen Ur Phencyclidine Scrn Ur Amphetamines Screen U Benzodiazepines Scrn Urine Cocaine Screen U Marijuana (THC) Screen 11/25/24 16:11 Hold Purple Top Creatinine Estim Creat Clear Calc Estimated GFR POC Glucose 258 H Stool Occult Blood Random Vancomycin Urine Opiates Screen Ur Buprenorphine Scrn Ur Oxycodone Screen Urine Methadone Screen Urine Fentanyl Screen Ur Barbiturates Screen Ur Phencyclidine Scrn Ur Amphetamines Screen U Benzodiazepines Scrn Urine Cocaine Screen U Marijuana (THC) Screen Preliminary micro results at discharge 11/22/24 11:01 Blood Culture - Preliminary Blood - Venous No growth after 48 hours. 11/22/24 11:01 Blood Culture - Preliminary Blood - Venous No growth after 48 hours. <DAPHNIE Brar - Last Filed: 11/25/24 17:45> Discharge Plan Discharge Anticipated Discharge Date/Time: 11/26/24 10:58 <DAPHNIE Brar - Last Filed: 11/25/24 17:45> Patient Disposition: Home, Self-Care <DAPHNIE Brar - Last Filed: 11/25/24 17:45> Discharge Diagnosis: ulcer/cellulitis of great toe lower back pain <DAPHNIE Brar - Last Filed: 11/25/24 17:45> ulcer/cellulitis of great toe lower back pain <Lorraine Chauhan NP - Last Filed: 11/26/24 11:02> Referrals: Darshana Fields MD [Physician] - 2 Weeks Milena Shoemaker MD [Primary Care Provider] - 1 Week <DAPHNIE Brar - Last Filed: 11/25/24 17:45> Discharge Medications: New amoxicillin-pot clavulanate 875-125 mg tablet 1 tab PO Q12H 10 Days Qty: 20 0RF doxycycline hyclate 100 mg tablet 100 mg PO BID 10 Days Qty: 20 0RF docusate sodium 100 mg Capsule 100 mg PO BID 90 Days Qty: 180 0RF polyethylene glycol 3350 17 gram Powder In Packet 17 g PO BID Qty: 100 0RF Continued atorvastatin 80 mg tablet 80 mg PO BEDTIME cetirizine 10 mg Tablet 10 mg PO DAILY chlorthalidone 50 mg tablet 50 mg PO DAILY magnesium oxide 400 mg (241.3 mg magnesium) tablet 400 mg PO DAILY tamsulosin 0.4 mg capsule 0.4 mg PO DAILY gabapentin 800 mg tablet 800 mg PO TID baclofen 10 mg tablet 10 mg PO TID epinephrine 0.3 mg/0.3 mL auto-injector 0.3 mg IM DIRECTED PRN (Reason: Allergic Reaction) albuterol sulfate [Ventolin HFA] 90 mcg/actuation HFA aerosol inhaler 2 puff inhalation Q4H PRN (Reason: Wheezing) losartan 100 mg tablet 100 mg PO DAILY fluticasone propionate 50 mcg/actuation spray,suspension 1 spray intranasal BID PRN (Reason: Allergy Symptoms) oxycodone 5 mg tablet 5 mg PO Q6H PRN (Reason: severe pain) Jardiance 25 mg tablet 25 mg PO DAILY acetaminophen 650 mg tablet extended release 650 mg PO Q8H PRN (Reason: pain) insulin glargine [Basaglar KwikPen U-100 Insulin] 100 unit/mL (3 mL) insulin pen 90 unit subcut BEDTIME Trulicity 3 mg/0.5 mL pen injector 3 mg subcut FR insulin aspart U-100 [Novolog U-100 Insulin aspart] 100 unit/mL Solution 10 unit SUBCUT TIDAC clotrimazole-betamethasone 1-0.05 % cream 1 appl topical BID PRN (Reason: Rash) labetalol 300 mg tablet 300 mg PO BID hydralazine 100 mg tablet 100 mg PO TID ondansetron HCl 4 mg tablet 4 mg PO Q8H PRN (Reason: Nausea And Vomiting) amlodipine 5 mg tablet 5 mg PO DAILY Qty: 90 1RF <DAPHNIE Brar - Last Filed: 11/25/24 17:45> Discharge Orders: Discharge Order (Routine); Ordered 11/26/24 Ordered By: Lorraine Chauhan <DAPHNIE Brar - Last Filed: 11/25/24 17:45> Diet: Advance to usual diet <DAPHNIE Brar - Last Filed: 11/25/24 17:45> Advance to usual diet <Lorraine Chauhan NP - Last Filed: 11/26/24 11:02> Activity on Discharge: As tolerated <DAPHNIE Brar - Last Filed: 11/25/24 17:45> As tolerated <Lorraine Chauhan NP - Last Filed: 11/26/24 11:02> Stand Alone Forms: Patient Portal Discharge page <DAPHNIE Brar - Last Filed: 11/25/24 17:45> Print Language: Kinyarwanda <DAPHNIE Brar - Last Filed: 11/25/24 17:45> Care Plan Goals: See below <DAPHNIE Brar - Last Filed: 11/25/24 17:45> Health Concerns: Lower back pain/sciatica Abdominal pain/constipation Great toe infection <DAPHNIE Brar - Last Filed: 11/25/24 17:45> Plan of Treatment: continue bowel regimen for constipation Outpatient follow-up with GI to schedule colonoscopy versus sigmoidoscopy Call to schedule follow-up appointment with [facility] team to follow back pain; continue moist heat Continue course of antibiotics as prescribed <DAPHNIE Brar - Last Filed: 11/25/24 17:45> Assessment: See discharge summary <DAPHNIE Brar - Last Filed: 11/25/24 17:45>
[2024-11-25 19:51] VITALS: BP 161/74; PULSE 63; RESP 18; TEMP 36.9; O2SAT 97
[2024-11-25] MEDS: Atorvastatin Calcium 80 MG TABLET PO (20:20)
[2024-11-25 20:35] LABS: Glucose, Whole Blood 194 mg/dL (60-115)
[2024-11-25] MEDS: HYDROmorphone HCl 0.5 MG/0.5 ML SYRINGE IVPUSH (21:06)
[2024-11-25] MEDS: Insulin Glargine,Hum.rec.anlog 100 UNIT/ML 10 ML VIAL 90 UNIT SUBCUT (21:10)
[2024-11-26] MEDS: Acetaminophen 325 MG TABLET 975 MG PO ×2 (01:50→09:17)
[2024-11-26] MEDS: vancomycin HCL 1,250 MG in 0.9 % Sodium Chloride 250 ML 166.66 MG IV (01:50)
[2024-11-26 03:03] VITALS: RESP 18
[2024-11-26 03:28] VITALS: BP 127/73; PULSE 56; RESP 16; TEMP 36.7; O2SAT 95
[2024-11-26] MEDS: Piperacillin Sodium/Tazobactam 3.375 GM in 0.9 % Sodium Chloride 50 ML IV ×2 (04:51→11:01)
[2024-11-26] MEDS: HYDROmorphone HCl 0.5 MG/0.5 ML SYRINGE IVPUSH ×2 (04:55→11:02)
[2024-11-26 06:03] LABS: Creatinine Clr Calc Pharmacy 123.6; Estimated Glomerular Filt Rate > 60
[2024-11-26 06:29] LABS: Glucose, Whole Blood 89 mg/dL (60-115)
[2024-11-26 07:20] VITALS: BP 160/70; PULSE 55; RESP 16; TEMP 36.6; O2SAT 96
[2024-11-26 07:21] LABS: Glucose, Whole Blood 119 mg/dL (60-115)
[2024-11-26 08:49] VITALS: BP 160/70; PULSE 55; O2SAT 96
[2024-11-26] MEDS: oxyCODONE HCl Immed Release 5 MG TABLET PO (09:16)
[2024-11-26] MEDS: Nicotine 14 MG PATCH.TD24 TRANSDERMA (09:16)
[2024-11-26] MEDS: Tamsulosin HCL 0.4 MG CAPSULE PO (09:17)
[2024-11-26] MEDS: hydrALAZINE HCl 50 MG TABLET 100 MG PO (09:17)
[2024-11-26] MEDS: polyethylene glycoL 3350 17 GM POWD.PACK PO (09:17)
[2024-11-26] MEDS: Docusate Sodium 100 MG CAPSULE PO (09:17)
[2024-11-26] MEDS: Baclofen 10 MG TABLET PO (09:17)
[2024-11-26] MEDS: Losartan Potassium 50 MG TABLET 100 MG PO (09:17)
[2024-11-26] MEDS: Loratadine 10 MG TABLET PO (09:18)
[2024-11-26] MEDS: Labetalol HCL 100 MG TABLET 300 MG PO (09:18)
[2024-11-26] MEDS: Gabapentin 400 MG CAPSULE 800 MG PO (09:18)
[2024-11-26] MEDS: amLODIPine Besylate 5 MG TABLET PO (09:19)
[2024-11-26 11:10] LABS: Glucose, Whole Blood 135 mg/dL (60-115)
--- NOTE | 2024-11-26 11:17 | MHC.CM.PN ---
Addendum entered by Milena Lynn 11/26/24 11:29: PT UNABLE TO SECURE A RIDE HOME, [facility] SHUTTLE BOOKED FOR 11:45 AM, RN AWARE. Original Note: DP: PT HAS BEEN MEDICALLY CLEARED FOR DC HOME, NO SERVICES. PT HAS OWN RIDE HOME
== END 2024-11-26 11:42 | disposition home or self-care (01) | DRG 638 ==
LOC: HO.ED 13:17 → HO.EDOVER 13:37 → HO.S3 14:53
PROVIDERS: Internal Medicine; Physician Assistant Medical; Admitting Provider Internal Medicine; Emergency Provider Emergency Medicine; PCP Family Medicine; Visit Provider Nurse Practitioner Acute Care
DX: E11.621 Type 2 diabetes mellitus with foot ulcer (principal); E87.20 Acidosis, unspecified; M86.9 Osteomyelitis, unspecified; K62.5 Hemorrhage of anus and rectum; Z68.41 Body mass index [BMI] 40.0-44.9, adult; E78.5 Hyperlipidemia, unspecified; G47.33 Obstructive sleep apnea (adult) (pediatric); N40.0 Benign prostatic hyperplasia without lower urinary tract symptoms; E11.69 Type 2 diabetes mellitus with other specified complication; L97.519 Non-pressure chronic ulcer of other part of right foot with unspecified severity; I12.9 Hypertensive chronic kidney disease with stage 1 through stage 4 chronic kidney disease, or unspecified chronic kidney disease; N18.9 Chronic kidney disease, unspecified; N28.89 Other specified disorders of kidney and ureter; J45.909 Unspecified asthma, uncomplicated; K59.00 Constipation, unspecified; E11.22 Type 2 diabetes mellitus with diabetic chronic kidney disease; E66.9 Obesity, unspecified; M65.971 Unspecified synovitis and tenosynovitis, right ankle and foot; M54.41 Lumbago with sciatica, right side; Z71.3 Dietary counseling and surveillance; Z20.822 Contact with and (suspected) exposure to COVID-19; F17.210 Nicotine dependence, cigarettes, uncomplicated; Z71.6 Tobacco abuse counseling; Z79.4 Long term (current) use of insulin; Z79.85 Long-term (current) use of injectable non-insulin antidiabetic drugs; Z79.899 Other long term (current) drug therapy
CPT/HCPCS: 0241U; 36415; 71045; 72158; 73660; 73720; 74177; 80048; 80053; 80202; 80307; 81001; 82272; 82565; 82947; 83036; 83605; 83690; 83735; 83880; 85014; 85018; 85025; 85027; 85652; 86140; 87040; 93005; 94640; 97162; 99285; A9585; J1171; J1308; J2405; J2470; J2543; J3360; J3370; J3371; J7120; Q9967

== ENCOUNTER → 2024-11-22 10:23 | Outpatient (BNV) | payer MEDICARE, MEDICAID, SELFPAY | PROVIDERS: Emergency Provider Emergency Medicine; PCP Family Medicine; Visit Provider Radiology Diagnostic Radiology | DX: M65.871 Other synovitis and tenosynovitis, right ankle and foot (principal); N28.1 Cyst of kidney, acquired; R06.02 Shortness of breath; R22.41 Localized swelling, mass and lump, right lower limb | CPT/HCPCS: 74177 ==

== ENCOUNTER → 2024-11-22 10:32 | Outpatient (BNV) | payer MEDICARE, MEDICAID, SELFPAY | PROVIDERS: Emergency Provider Emergency Medicine; PCP Family Medicine; Visit Provider Internal Medicine Cardiovascular Disease | DX: R06.02 Shortness of breath (principal) | CPT/HCPCS: 93010 ==

== ENCOUNTER 2024-11-22 13:28 | Outpatient (BNV) | payer MEDICARE, MEDICAID, SELFPAY | END 2024-11-23 13:27 | PROVIDERS: Admitting Provider Internal Medicine; Emergency Provider Emergency Medicine; PCP Family Medicine; Visit Provider Radiology Diagnostic Radiology | DX: M51.369 Other intervertebral disc degeneration, lumbar region without mention of lumbar back pain or lower extremity pain (principal) | CPT/HCPCS: 72158 ==

== ENCOUNTER → 2024-11-22 13:28 | Outpatient (BNV) | payer MEDICARE, MEDICAID, SELFPAY | PROVIDERS: Admitting Provider Internal Medicine; Emergency Provider Emergency Medicine; PCP Family Medicine; Visit Provider Surgery | DX: L97.512 Non-pressure chronic ulcer of other part of right foot with fat layer exposed (principal) | CPT/HCPCS: 99222; 99232 ==

== ENCOUNTER → 2024-11-22 13:28 | Outpatient (BNV) | payer MEDICARE, MEDICAID, SELFPAY | PROVIDERS: Admitting Provider Internal Medicine; Emergency Provider Emergency Medicine; PCP Family Medicine; Visit Provider Internal Medicine | DX: R10.32 Left lower quadrant pain (principal); S91.309A Unspecified open wound, unspecified foot, initial encounter; M54.41 Lumbago with sciatica, right side | CPT/HCPCS: 99232; 99233 ==

== ENCOUNTER → 2024-11-22 13:28 | Outpatient (BNV) | payer MEDICARE, MEDICAID, SELFPAY | PROVIDERS: Admitting Provider Internal Medicine; Emergency Provider Emergency Medicine; PCP Family Medicine; Visit Provider Internal Medicine Gastroenterology | DX: R10.32 Left lower quadrant pain (principal); K62.5 Hemorrhage of anus and rectum | CPT/HCPCS: 99222 ==

== ENCOUNTER → 2024-11-22 13:28 | Outpatient (BNV) | payer MEDICARE, MEDICAID, SELFPAY | PROVIDERS: Admitting Provider Internal Medicine; Emergency Provider Emergency Medicine; PCP Family Medicine; Visit Provider Internal Medicine | DX: M54.41 Lumbago with sciatica, right side (principal); S91.309A Unspecified open wound, unspecified foot, initial encounter; K62.5 Hemorrhage of anus and rectum; R10.32 Left lower quadrant pain | CPT/HCPCS: 99232 ==

== ENCOUNTER 2025-01-07 16:53 | Outpatient (REF) | payer MEDICARE, MEDICAID, SELFPAY ==
--- OUTSIDE RECORDS SUMMARY | 2025-01-07 16:55 | XMS_ITS | Clinical Summary ---
Author Organization [facility] Address [address] [place] [address] Care Team Providers Care Unix Developer Name Role Phone Milena Shoemaker MD Primary Care Provider [phone] Allergies Active Allergy Reactions Criticality Noted Date Comments Coconut Hives Medium 09/01/2023 Cyclobenzaprine Rash/Dermatitis Low 09/07/2023 Per pt, flexeril has caused rash in past Lisinopril Cough Low 08/30/2023 Naproxen GI Intolerance/Nausea/Vomiti ng Low 08/30/2023 Seafood Anaphylaxis High 08/30/2023 Medications chlorthalidone (HYGROTON) 50 MG tablet Take 1 [...] (90 Base) MCG/ACT inhaler Inhale 1-2 puffs. Active NICOTINE NA Apply topically. patch Active hydrALAZINE (APRESOLINE) 25 MG tabletIndication s:Septic arthritis of vertebra, due to unspecified organism Take 3 tablets (75 mg total) by mouth 3 (three) times a day. 270 tablet 4 Active carvedilol (COREG) 12.5 MG tabletIndication s:Septic arthritis of vertebra, due to unspecified organism Take 0.5 tablets (6.25 mg total) by mouth 2 (two) times a day. 30 tablet 4 Active spironolactone (ALDACTONE) 25 MG tabletIndication s:Septic arthritis of vertebra, due to unspecified organism Take 1 tablet (25 mg total) by mouth daily. 30 tablet 4 Active mupirocin (BACTROBAN) 2 % ointmentIndicati ons:Septic arthritis of vertebra, due to unspecified organism Apply topically 2 (two) times a day. 22 g 4 Active oxyCODONE (ROXICODONE) 5 MG immediate release tabletIndication s:Septic arthritis of vertebra, due to unspecified organism Take 1 tablet (5 mg total) by mouth every 4 (four) hours as needed for severe pain. Max Daily Amount: 30 mg 30 tablet 4 Active baclofen (LIORESAL) 10 MG tabletIndication s:Septic arthritis of vertebra, due to unspecified organism Take 1 tablet (10 mg total) by mouth 3 (three) times a day. 90 tablet 4 Active Active Problems Problem Noted Date Diagnosed [...] drink = 0.6 oz pur e alcohol) [facility] Utilities Answer Date Recorded In the past 12 months has th e [employer], [employer], oil, or water [email or web address] threatened to shut off services in your [...] money to buy more. Never true 08/31/19 24 Within the past 12 months, t he [...] place to sleep or slept in a fci (including now)? No 08/31/2023 Sex and Gender Information Value Date Recorded Sex Assigned at Male 08/30/2023 7:47 PM EDT Legal Sex Male 12:03 PM EDT Gender Identity Male 08/30/2023 7:47 PM EDT Sexual Orientation Heterosexual (straight) 08/31 12:38 PM EDT Last Filed Vital Signs Vital Sign Reading Time Taken Comments Blood Pressure 172/92 09/16/2023 12:39 PM EDT Pulse 68 09/16/2023 7:15 AM EDT Temperature 37 C (98.6 F) 09/16/2023 7:15 AM EDT Respiratory Rate 17 [...] Zoster (Shingles) Vaccine (1 of 2) 2022 COVID-19 Vaccine (1 - 2023-2 5 season) 2024 Creatinine with GFR 09/15/2024 09/16/2023, 09/15/2023, 09/14/2023, Additional history exists Influenza Vaccine 01/11/2025 Procedures Procedure Name Priority Date/Time Associated Diagnosis Comments BASIC METABOLIC PANEL Routine 09/16/2023 5:08 AM EDT from Last 3 Months or Most Recently Relevant to Health Maintenance Results * (ABNORMAL) Basic Metabolic Panel (Early AM) (09/16/2023 5:08 AM EDT) Glucose 154(H) 65 - 99 mg/dL 09/16/2023 5:57 AM EDT [facility] Comment:Fasting: <100 mg/dL, Non-Fasting: <200 mg/dL (ADA 2005) Blood Urea Nitrogen (BUN) 23(H) 8 - 21 mg/dL 09/16/2023 5:57 AM EDT [facility] Creatinine 1.2 0.5 - 1.3 mg/dL 09/16/2023 5:57 AM EDT [facility] eGFR 74 >59 09/16/2023 5:57 AM EDT [facility] Comment:CKD-EPI (2020) in mL /min/1.73 sq meters. Sodium 138 136 - 145 mmol/L 09/16/2023 5:57 AM EDT [facility] Potassium 3.8 3.4 - 5.3 mmol/L 09/16/2023 5:57 AM EDT [facility] Chloride 101 98 - 107 mmol/L 09/16/2023 5:57 AM EDT [facility] CO2 27 22 - 33 mmol/L 09/16/2023 5:57 AM EDT [facility] Anion Gap 10 7 - 17 09/16/2023 5:57 AM EDT [facility] Calcium 8.8 8.7 - 10.5 mg/dL 09/16/2023 5:57 AM EDT [facility] BUN/Creatinine Ratio 19 10.0 - 25.0 Ratio 09/16/2023 5:57 AM EDT [facility] Blood specimen (specimen) (Plasma/Serum) 09/16/2023 5:08 AM EDT 09/16/2023 5:32 AM EDT Yareli Mccoy MD LAB BLOOD [place]AB[place] [address], [place] [address] from Last 3 Months or Most Recently Relevant to Health Maintenance Insurance MEDICARE PART A & B [facility] MEDICARE PART A & B [facility] Advance Directives * Full Code (Latest Code Status on File) Date Activated Date Inactivated Comments 08/30/2023 11:42 PM Question Answer Comments Decision Thoroughly Discussed with: Patient Care Teams Unix Developer Relationship Specialty Start Date End Date Milena Shoemaker MD [address] [place] [address] PCP - General Family Medicine 08/30/23
--- OUTSIDE RECORDS SUMMARY | 2025-01-07 16:55 | XMS_ITS | Encounter Summary ---
Author Organization [facility] Address [address] [place] [address] Phone Care Team Providers Care Grader Green [employer] Name Role Phone Milena Shoemaker MD Primary Care Provider [phone] Encounter Details Date Type Department Care Team (Late st Contact Info) Description 11/05/2022 Documentation Only [facility] [address] [place] [address] Milena Shoemaker MD [address] [place], [place] [id number] Social History Tobacco Use Types Packs/Day Years [...] on filedocumented in this encounter Care Teams Grader [employer] Relationship Specialty Start Date End Date Milena Shoemaker MD [address] [place], [place] [id number] PCP - General Family Medicine 11/05/22 documented as of this encounter
--- OUTSIDE RECORDS SUMMARY | 2025-01-07 16:55 | XMS_ITS | Data Portability ---
Author Organization DAPHNIE - [facility], [address] Address [address] [place] [address] Assessment No assessment recorded. Plan of Treatment Reminders Order Date Submit Date Provider Last Modified By Organization Details Last Modified Time Details Appointments None recorded . Lab rapid strep group A, throat 2022 023 [facility], [address] [place] [address], [place], [address], 3 10:14:47 streptoc occus group A, culture, throat 2022 023 SACHIN [facility] ([place]), [address] [place] [address], [place], [address], 3 10:06:02 Referral orthoped ic surgeon referral - left shoulder pain on/off x 1 year. failing conserva tive treatmen t . need further evaluati on and treatmen t. 2022 023 [email or web address] 1 [facility] (Nick Hawley), [address] [facility], [place], [address], 3 08:11:58 Procedures None recorded . Surgeries None recorded . Imaging XR, shoulder , 2 or more view 2022 023 [facility], [address] [facility], [place], [address], 3 11:27:21 Medication Orders Allergy Relief (flutica sone) 50 mcg/actu ation nasal spray,moss spension 2022 023 [facility] #[id number], [address] [place] [address], [address], 3 10:54:46 predniso ne 10 mg tablet [email or web address]/[facility]acy #[id number], [address] [place] [address], [address], 3 09:36:41 albutero l sulfate HFA 90 mcg/actu ation aerosol inhaler 2021 022 [id number] [address] [place], [address], 2 10:13:25 amoxicil quirino 875 mg-potas sium clavulan ate 125 mg tablet 2021 [email or web address] [id number] [address] [place] [address], [address], 3 09:35:58 loratadi ne 10 mg tablet [email or web address]/[facility] #0843, [address] [place] [address], [address], 3 09:36:29 Patient TargetsNo targets recorded. Patient Instructions Encounter Date Encounter Id Patient Instructions Last Modified By Organization Details Last Modified Time 05/18/2022 [id number] controlling your asthma: care instructions [email or web address] Not available 05/18/2022 10:13:20 Acute Sinusitis: Care Instructions [email or web address] Not available 05/18/2022 10:13:20 Based on your [...] watery post nasal drip. 6. Saline Nasal Hensel is recommended. Since an antibiotic was prescribed [...] notice immediate response. Thank you for using [facility] today, please feel free to contact our office if you have any questions or concerns. [email or web address] Not available 05/18/2022 10:12:56 07/08/2022 [id number] shoulder pain: c are instructions Not available [...] care for yourself at home? Take an ahea-wnd-itkyejc pain medicine. Avoid Ibuprofen, Aleve and Aspirin if . If the doctor prescribed antibiotics, take them as directed. Do not stop taking them just because you feel better. You need to take the full course of antibiotics. Be careful when taking qezm-pqg-frrczxb cold or influenza (flu) medicines and Tylenol [...] your doctor if you can take an brfk-phl-medtken medicine. Do not take two or more [...] shoulder, but do not lift anything heavy. [email or web address] Not available 07/08/2022 10:14:15 Reason for Referral [...] Range : Negat lala Not Available [facility] ([facility]) [address] [facility], [place], [address], 07/11/2022 10:06:02 07/08/19 23 07/08/2022 rapid strep group A, throa t Unknown Analyte Normal = Negati ve Not Available [facility] [address] [place] [address], [address], 07/08/2022 09:31:24 07/08/19 23 07/08/2022 rapid strep group A, throa t Unknown Analyte negati ve Not Available [facility] [address], [address], 07/08/2022 09:31:24 07/08/19 23 07/08/2022 XR, shoul flo, 2 or more view No observ ation record ed. [email or web address] [address] [facility], [place], [address], 07/08/2022 15:06:55 Result Notes None recorded. Problems Name Problem SNOMED Code Status Onset Date Resolution Date Notes Provider Name and Address Organization Details Recorded Time Asthma 124696466 Active 2021 KATHARINA GOODHIND null, PA - [facility] 2 09:32:52 Hypertensive disorder 68507955 Active 2021 KATHARINA BATISTA null, PA - [facility] 2 09:33:10 Hyperlipidemia 30061960 Active 2021 KATHARINA BATISTA null, PA - [facility] 2 09:33:19 Diabetes mellitus 77851682 Active 2021 KATHARINA BATISTA null, PA - [facility] 2 09:33:30 Sleep apnea 41571730 Active 2021 KATHARINA BATISTA null, PA - [facility] 2 09:33:44 Problem Notes None recorded. Procedures Surgical History Date Name Laterality Status Provider Name and Address Organization Details Recorded Time Prostate biopsy, any mthd completed KATHARINA ARTEAGADC PA - [facility] 05/18/2022 09:26:39 Neck spine disk surgery completed KATHARINA ARTEAGADC PA - [facility] 05/18/2022 09:26:56 Imaging Results None recorded. Procedure Notes None recorded. Medical Equipment None Reported. Allergies Allergen ID Allergen Name Allergen Category Reaction Reaction Severity Criticality Documentation Date Start Date Code Code System Note Provider Name and Address Organization Details Recorded Time 86603 cyclobenz aprine hydrochlo ride medicatio n Not available Not available Not available 05/18/2022 36791 RxNorm KATHARINA BATISTA null, PA - [facility] 2 09:22:07 79939 Seroquel medicatio n Not available Not available Not available 05/18/2022 28807 RxNorm KATHARINA BATISTA null, PA - [facility] 2 09:22:44 [...] Not Available Not Available No t Available Laney Akins U-100 Insulin 100 unit/mL (3 mL) subcutaneou s INJECT 68 UNITS SUBCUTANE OUSLY DAILY AT BEDTIME active Not Available Not Available No t Available Vitals Date Recorded Body height Pain severity - 0-10 verbal numeric rating [Score] - Reported Oxygen saturation Oxygen saturation in Arterial blood by Pulse oximetry Heart rate Respiratory rate Body temperature Body mass index (BMI) Body weight Systolic And Diastolic Provider Name and Address Organization Details Last Updated DateTime 3 175.26 cm 10 97 % 97 % 90 /min 18 /min 98.5 [degF] 39.3 kg/m2 604749. 85 g 155/80 mm[Hg] SALIMA BENAVIDES [facility] 3 09:42:36 Date Recorded Body height Body mass index (BMI) Body weight Body temperature Oxygen saturation Oxygen saturation in Arterial blood by Pulse oximetry Heart rate Respiratory rate Systolic And Diastolic Provider Name and Address Organization Details Last Updated DateTime 2 175.26 cm 39.9 kg/m2 082233. 94 g 97.3 [degF] 96 % 96 % 81 /min 18 /min 147/85 mm[Hg] KATHARINA BATISTA PA [facility] 2 09:20:52 Social History Question Answer Notes LastModified by LineHop Details LastModified Time Tobacco Smoking Status Current Every Day Smoker KATHARINA murcia PA [facility] 05/18/2022 09:28:04 Which Illicit Or Recreational Drugs Have You Used? Marijuana Information not available 05/18/2022 How Much Tobacco Do You Smoke? 0.5 PPD Information not available 05/18/2022 Have You Recently Traveled Abroad? No [email or web address] Information not available 07/08/2022 Sex: Unknown Functional Status Question Answer Note LastModified by [employer] Details LastModified Time Do you use any illicit or recreational drugs? Yes Information not available 05/18/2022 Mental Status None recorded. Family History Relationship [...] Time Hep B, adult 2 completed SALIMA DEPINTO null, PA - [facility] 07/08/2022 09:34:59 COVID-19, mRNA, LNP-S, PF, 30 mcg/0.3 mL dose, andreina-sucrose 2 completed SALIMA DEPINTO null, PA - [facility] 07/08/2022 09:34:59 Td (adult), 2 Lf tetanus toxoid, preservative free, adsorbed 2 completed SALIMA DEPINTO null, PA - [facility] 07/08/2022 09:34:59 Past Encounters Encounter ID Performer Location Encounter Start Date Encounter Closed Date Diagnosis/Indication Diagnosis SNOMED-CT Code Diagnosis ICD10 Code Diagnosis Note [id number] DAPHNIE KWONG [address] [address] [address] 05/18/2022 09:13:46 05/18/2022 10:21:06 Acute sinusitis 62826361 J01.90 Exacerbati on of intermittent asthma 694413928 J45.21 [id number] [place] [facility] [address] [place] [address] 07/08/2022 08:26:49 07/08/2022 11:03:15 Acute sinusitis 01408100 J01.90 Pain of le ft shoulder joint 8791732856 5227955 M25.512 Health Concerns Section Related Observation LastModified by Organization Detai ls LastModified Time None Recorded Concern Status LastModified by Organization Details LastModified Time None Recorded Advance Directives Directive None Recorded Payers Insurance Date Sequence Insurance Name Policy Number Policy Monzon Covered Member ID Monzon Member ID Guarantor Name 07/08/2022 2 [place] [facility] Gallo Saini [id number] Gallo Saini 07/08/2022 1 MEDICARE B-[place] [facility] Gallo Saini [id number] Gallo Saini
--- OUTSIDE RECORDS SUMMARY | 2025-01-07 16:55 | XMS_ITS ---
Author Name [facility] Organization Unknown Encounters Encounter Type Encounter Reason Primary Diagnosis Location Date Inpatient Other infective spondylopathies, site unspecified Other infective spondylopathies, site unspecified [facility] 08[facility]23 [facility] 08/30/2023 Care Team Organization Name Specialty Phone Email Start Date End Da te [facility] 08/31/2023 [facility] 08/30/2023 08/29/2024 [facility]
[2025-01-08 11:14] LABS: Chlamydia pneumoniae PCR Not Detected (Not Detect.); Coronavirus 229E PCR Not Detected (Not Detect.); Coronavirus HKU1 PCR Not Detected (Not Detect.); Coronavirus NL63 PCR Not Detected (Not Detect.); Coronavirus OC43 PCR Not Detected (Not Detect.); RSV PCR Not Detected (Not Detect.); Rhino/Enterovirus PCR Not Detected (Not Detect.)
[2025-01-08 11:43] LABS: Influenza A H1 PCR Not Detected (Not Detect.); Influenza A H1-2009 PCR Not Detected (Not Detect.); Influenza A H3 PCR Not Detected (Not Detect.); SARS-CoV-2 PCR Not Detected (Not Detect.)
== END 2025-01-07 16:54 | disposition home or self-care (01) ==
LOC: HO.HHCLNP 16:53
PROVIDERS: Visit Provider Internal Medicine
DX: J30.2 Other seasonal allergic rhinitis (principal); Z11.59 Encounter for screening for other viral diseases
CPT/HCPCS: 87633

== ENCOUNTER 2025-01-23 13:28 | Outpatient (AMB) | payer MEDICARE, MEDICAID, SELFPAY ==
[2025-01-23 13:37] VITALS: BP 132/74; PULSE 65; RESP 16; O2SAT 94; BMI 38.8
--- NOTE | 2025-01-23 13:37 | A.OFFVIS_ITS ---
Vital Signs 01/23/25 13:37 Height 5 ft 8 in Weight 255 lb BMI 38.8 BP 132/74 Blood Pressure Location Rt brachial Position Sitting Respiration 16 Pulse 65 Pulse Source Pulse Oximeter Pulse Oximetry (%) 94 Oxygen Delivery Method Room Air Intake Visit Reasons: Cervical Radiculopathy Outbound Sales Specialist Required: No Accompanied by: Self / Same As Patient Allergies coconut Allergy (Verified 01/23/25 13:39) Rash naproxen (From NAPROSYN) Adverse Reaction (Severe, Verified 01/23/25 13:39) STOMACH UPSET cefepime Adverse Reaction (Intermediate, Verified 01/23/25 13:39) Rash lisinopril (LISINOPRIL) Adverse Reaction (Mild, Verified 01/23/25 13:39) COUGH SEAFOOD Allergy (Unknown, Uncoded 11/22/24 10:20) ANAPHYLAXIS HPI Comments Details: The patient is a 54-year-old male presenting with neck pain. The patient has a history of cervical spondylosis with a cervical fusion surgery at the C4-C5 level performed 8 to 10 years ago. He reports persistent neck pain, particularly in the central region, which is aggravated by movement and leads to frequent headaches. There has been no recent imaging or physical therapy for the neck, and he reports numbness and tingling radiating down the left arm, affecting the pinky and ring fingers. The patient also has a diabetic foot ulcer that remains open and requires regular dressing changes, currently managed at his doctor's office. He has run out of supplies and is unable to afford them, impacting the wound care process. The ulcer has been present for approximately a year, and the patient is diabetic, complicating the healing process. Additionally, the patient reports a rotator cuff tear in the left shoulder, with a history of an x-ray showing a shredded ligament. He experiences pain and burning sensations, particularly when attempting overhead activities or reaching behind his back. There has been no physical therapy or intervention for the shoulder to date. - Onset: Neck pain began 8 to 10 years ago following cervical fusion surgery. - Quality: Pain is described as central and exacerbated by movement, leading to headaches. - Location: Central neck with radiation to the left arm, affecting the pinky and ring fingers. - Exacerbating factors: Movement worsens the neck pain. - Interference: Pain interferes with daily activities due to headaches and arm symptoms. - Affect: Pain impacts daily activities and causes headaches. - Analgesia: No specific pain medications discussed. - Adverse Effects: No adverse effects from medications reported. - Activities of Daily Living: Pain limits overhead activities and reaching behind the back. - Aberrant Drug Related Behaviors: No aberrant behaviors reported. 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 Denies recent imaging or physical therapy for the neck. - Integumentary: Reports an open diabetic foot ulcer requiring dressing changes. - Respiratory: Denies any respiratory symptoms. - Neurological: Reports headaches associated with neck pain. - Allergic/Immunologic: Reports symptoms of allergic rhinitis. Physical Exam Exam Exam: General: awake, alert, oriented. Answers questions appropriately. Fully engaged in examination. Skin: warm, dry, intact HEENT: Normocephalic. Hearing intact. Cardiac: External chest normal in appearance. Respiratory: No cough, audible wheezing or stridor. Abdomen: without gross distension. MS: No obvious swelling or deformities. Able to transition from sit to stand unassisted. Tenderness over midline cervical vertebrae and cervical paraspinal muscles Bilateral upper extremity strength 5/5 Spurling positive Left shoulder: Pain with overhead reach, behind the back reach, cross-body reach. Positive empty can. Neurological: Oriented to person, place, time and situation. Thought process i ntact. No gait abnormalities appreciated. Psychiatric: Appropriate mood and affect. Good judgment and insight. Vital Signs: Last Vital Signs Pulse 65 01/23/25 13:37 Resp 16 01/23/25 13:37 BP 132/74 01/23/25 13:37 Pulse Ox 94 01/23/25 13:37 Oxygen Delivery Method Room Air 01/23/25 13:37 BMI result Body Mass Index 38.8 Assessment & Plan Assessment & Plan (1) Cervical radiculopathy: Code(s): M54.12 - Radiculopathy, cervical region Category: Medical (2) Left shoulder pain: Code(s): M25.512 - Pain in left shoulder Category: Medical Plan The plan involves obtaining a new x-ray of the neck to evaluate the cervical spine, considering the history of cervical fusion and ongoing neck pain. Ph ysical therapy is advised for both the neck and left shoulder to improve pain and range of motion. A TENS unit prescription will be sent to a different supplier to aid in pain management, and the patient should contact his primary care physician for dressing supplies for the diabetic foot ulcer. Follow up with wound care as planned. Follow up in the office after physical therapy, sooner if needed Patient was informed and verbally consented to the use of an ambient scribe for clinic note documentation during this visit. Orders: Orders PT Evaluation and Treatment Today M25.512 - Pain in left shoulder, M54.12 - Radiculopathy, cervical region XR cervical spine w flex/ext Today M54.12 - Radiculopathy, cervical region Patient Instructions: - Obtain a new x-ray of your neck as soon as possible. - Attend physical therapy sessions for your neck and left shoulder. - Contact your primary care physician to arrange for dressing supplies for your foot ulcer. - Follow up with wound care as planned Coding Level of Care Code Est Pt Level 4 (33392) Complex EM visit Add On G2211 Diagnoses Cervical radiculopathy M54.12 Left shoulder pain M25.512
--- OUTSIDE RECORDS SUMMARY | 2025-01-23 13:55 | XMS_ITS | Encounter Summary ---
Author Organization [facility] Address [address] [place] [address] Phone Care Team Providers Care Chairman Name Role Phone Milena Shoemaker MD Primary Care Provider [phone] Encounter Details Date Type Department Care Team (Late st Contact Info) Description 11/05/2022 Documentation Only [facility] [address] [place] [address] Milena Shoemaker MD [address] [place], [place] [phone] Social History Tobacco Use Types Packs/Day Years [...] on filedocumented in this encounter Care Teams Chairman Relationship Specialty Start Date End Date Milena Shoemaker MD [address] [place], [place] [phone] PCP - General Family Medicine 11/05/22 documented as of this encounter
--- OUTSIDE RECORDS SUMMARY | 2025-01-23 13:55 | XMS_ITS | Clinical Summary ---
Author Organization [facility] Address [address] [place] [address] Care Team Providers Care Seat Cover Cutter Name Role Phone Milena Shoemaker MD Primary Care Provider [phone] Allergies Active Allergy Reactions Criticality Noted Date [...] drink = 0.6 oz pur e alcohol) [facility] Utilities Answer Date Recorded In the past 12 months has th e Monitor, [employer], oil, or water [place] threatened to shut off services in your [...] place to sleep or slept in a assisted (including now)? No 08/31/2023 Sex and Gender [...] - 99 mg/dL 09/16/2023 5:57 AM EDT [facility] Comment:Fasting: <100 mg/dL, Non-Fasting: <200 mg/dL (ADA 2005) Blood Urea Nitrogen (BUN) 23(H) 8 - 21 mg/dL 09/16/2023 5:57 AM EDT [facility] Creatinine 1.2 0.5 - 1.3 mg/dL 09/16/2023 5:57 AM EDT [facility] eGFR 74 >59 09/16/2023 5:57 AM EDT [facility] Comment:CKD-EPI (2020) in mL /min/1.73 sq meters. Sodium 138 136 - 145 mmol/L 09/16/2023 5:57 AM EDT [facility] Potassium 3.8 3.4 - 5.3 mmol/L 09/16/2023 5:57 AM EDT [facility] Chloride 101 98 - 107 mmol/L 09/16/2023 5:57 AM EDT [facility] CO2 27 22 - 33 mmol/L 09/16/2023 5:57 AM EDT [facility] Anion Gap 10 7 - 17 09/16/2023 5:57 AM EDT [facility] Calcium 8.8 8.7 - 10.5 mg/dL 09/16/2023 5:57 AM EDT [facility] BUN/Creatinine Ratio 19 10.0 - 25.0 Ratio 09/16/2023 5:57 AM EDT [facility] Blood specimen (specimen) (Plasma/Serum) 09/16/2023 5:08 AM EDT 09/16/2023 5:32 AM EDT Yareli Mccoy MD LAB BLOOD ORDERABLES [place] [address], [place] [address] from Last 3 Months or Most Recently Relevant to Health Maintenance Insurance MEDICARE PART A & B [facility] MEDICARE PART A & B [facility] Advance Directives * Full Code (Latest Code Status on File) Date Activated Date Inactivated Comments 08/30/2023 11:42 PM Question Answer Comments Decision Thoroughly Discussed with: Patient Care Teams Seat Cover Cutter Relationship Specialty Start Date End Date Milena Shoemaker MD [address] [place] [address] PCP - General Family Medicine 08/30/23
--- OUTSIDE RECORDS SUMMARY | 2025-01-23 13:55 | XMS_ITS | Encounter Summary ---
Author Organization [employer] Address [address] [facility] 7 [place] [address] Care Team Providers Care Card Puncher Name Role Phone Milena Shoemaker MD Primary Care Provider [phone] Reason for Visit * Reason Onset Date Comments Med Refill 03/01/2024 Encounter Details Date Type Department Care Team ([facility] Contact Info) Description 03/01/2024 Telephone [facility] [address], [place] [phone] Milena Shoemaker MD [address] [place] [address] Med Refill Social History Tobacco Use Types [...] 10 MG tablet To be sent to: [facility] - [address] documented in this encounter Plan of Treatment Upcoming Encounters Date Type Department Care Team (Late st Contact Info) Description 02/04/2025 10:00 AM EDT Medication Management [facility] MED & PEDS [address] [place] [address] Dana Damon, ChadD [address] [place] [address] 03/07/2025 10:00 AM EDT Clinical Support [facility] [address] [place] [address] Luma Dalton RN [address] [place] [address] 03/21/2025 11:30 AM EDT Office Visit [facility] [address] [place] [address] Milena Shoemaker MD [address] [place] [address] documented as of this encounter Visit Diagnoses Not on filedocumented in this encounter Additional Health Concerns Assessment Noted Time PHQ-9 Depression Total Score: 7 07/15/19 23 1:17 PM EST documented as of this encounter Care Teams Card Puncher Relationship Specialty Start Date End Date Milena Shoemaker MD [address] [place] [address] PCP - General Family Medicine 08/12/22 Maria G Sellers CNP Psychiatrist 02/23/23 documented as of this encounter
== END 2025-01-23 14:36 | disposition home or self-care (01) ==
LOC: HO.PMC 13:28
PROVIDERS: PCP Family Medicine; Visit Provider Registered Nurse Emergency
DX: M54.12 Radiculopathy, cervical region (principal); M25.512 Pain in left shoulder
CPT/HCPCS: 99214; G2211

== ENCOUNTER → 2025-01-23 13:28 | Outpatient (BNVA) | payer MEDICARE, MEDICAID, SELFPAY | PROVIDERS: PCP Family Medicine; Visit Provider Registered Nurse Emergency | DX: M54.12 Radiculopathy, cervical region (principal); M25.512 Pain in left shoulder | CPT/HCPCS: 99212 ==

== ENCOUNTER 2025-02-19 16:15 | Emergency (ER) | payer MEDICARE, MEDICAID, SELFPAY ==
[2025-02-19 16:29] VITALS: BP 160/80; BP 165/87; PULSE 74; PULSE 76; RESP 18; TEMP 36.8; O2SAT 96; O2SAT 97; BMI 40.6
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
--- OUTSIDE RECORDS SUMMARY | 2025-02-19 20:24 | XMS_ITS | Encounter Summary ---
Author Organization [employer] Address [address] [facility] 7 [place] [address] Care Team Providers Care Podiatry Assistant Name Role Phone Milena Shoemaker MD Primary Care Provider [phone] Reason for Visit * Reason Onset Date Comments Med Refill 03/01/2024 Encounter Details Date Type Department Care Team ([facility] Contact Info) Description 03/01/2024 Telephone [facility] CHC MED & PEDS [address] [place], [place] [phone] Milena Shoemaker MD [address] [place] [address] Med Refill Social History Tobacco Use Types [...] 10 MG tablet To be sent to: [facility] - [place], [place] - [address] [place] [address] documented in this encounter Plan of Treatment Upcoming Encounters Date Type Department Care Team (Late st Contact Info) Description 03/07/2025 10:00 AM EDT Clinical Support [facility] MED & PEDS [address] [place] [address] Luma Dalton RN [address] [place] [address] 03/21/2025 11:30 AM EDT Office Visit [facility] MED & PEDS [address] [place] [address] Milena Shoemaker MD [address] [place] [address] documented as of this encounter Visit Diagnoses Not on filedocumented in this encounter Additional Health Concerns Assessment Noted Time PHQ-9 Depression Total Score: 7 07/15/19 23 1:17 PM EST documented as of this encounter Care Teams Podiatry Assistant Relationship Specialty Start Date End Date Milena Shoemaker MD [address] [place] [address] PCP - General Family Medicine 08/12/22 Maria G Sellers CNP Psychiatrist 02/23/23 documented as of this encounter
--- OUTSIDE RECORDS SUMMARY | 2025-02-19 20:24 | XMS_ITS | Encounter Summary ---
Author Organization [employer] Address [address] [place] [address] 7 [place] [address] Care Team Providers Care Supervisor Lead Refinery Name Role Phone Milena Shoemaker MD Primary Care Provider [phone] Encounter Details Date Type Department Care Team ([facility] Contact Info) Description 11/10/2022 [facility] [address] [place] [address] Milena Shoemaker MD [address] [place], [place] [phone] Social History Tobacco Use Types Packs/Day Years [...] Upcoming Encounters Date Type Department Care Team ([facility] Contact Info) Description 03/07/2025 10:00 AM EDT Clinical Support [facility] CHC MED & PEDS [address] [place], [place] [phone] Luma Dalton, LUIS [address] [place] [address] 03/21/2025 11:30 AM EDT Office Visit [facility] CHC MED & PEDS [address] [place] [address] Milena Shoemaker MD [address] [place] [address] documented as of this encounter Visit Diagnoses Not on filedocumented in this encounter Additional Health Concerns Assessment Noted Time PHQ-9 Depression Total Score: 7 07/15/19 23 1:17 PM EST documented as of this encounter Care Teams Supervisor Lead Refinery Relationship Specialty Start Date End Date Milena Shoemaker MD [address] [place] [address] PCP - General Family Medicine 08/12/22 Maria G Sellers CNP Psychiatrist 02/23/23 documented as of this encounter
--- OUTSIDE RECORDS SUMMARY | 2025-02-19 20:24 | XMS_ITS | Encounter Summary ---
Author Organization [employer] Address [address] [place] [address] 7t [place] [address] Care Team Providers Care Rehanger Name Role Phone Mliena Shoemaker MD Primary Care Provider [phone] Reason for Visit * Reason Comments Med Refill Encounter Details Date Type Department Care Team ([facility] st Contact Info) Description 08/30/[address] [facility] CHC MED & PEDS [address] [place], [place] [phone] Milena Shoemaker MD [address] [place] [address] Chronic midline low back pain without sciatica [...] PM EDT This is a not a prison medication this is for short term, at [...] 10:00 AM EDT Clinical Support [facility] MED & PEDS [address] [place] [address] Luma Dalton RN [address] [place] [address] 03/21/2025 11:30 AM EDT Office Visit [facility] MED & PEDS [address] [place] [address] Milena Shoemaker MD [address] [place] [address] documented as of this encounter Visit Diagnoses Diagnosis Chronic midline low back pain without sciatica documented in this encounter Additional Health Concerns Assessment Noted Time PHQ-9 Depression Total Score: 7 07/15/19 23 1:17 PM EST documented as of this encounter Care Teams Rehanger Relationship Specialty Start Date End Date Milena Shoemaker MD [address] [place] [address] PCP - General Family Medicine 08/12/22 Maria G Sellers CNP Psychiatrist 02/23/23 documented as of this encounter
--- OUTSIDE RECORDS SUMMARY | 2025-02-19 20:24 | XMS_ITS | Encounter Summary ---
Author Organization [employer] Address [address] [facility] 7 [place] [address] Care Team Providers Care Side Sawyer Name Role Phone Milena Shoemaker MD Primary Care Provider [phone] Reason for Visit * Reason Onset Date Comments Med Refill 04/10/2024 Encounter Details Date Type Department Care Team ([facility] Contact Info) Description 04/10/2024 Refill [facility] CHC MED & PEDS [address] [place], [place] [phone] Milena Shoemaker MD [address] [place] [address] Chronic midline low back pain without sciatica [...] Description 03/07/2025 10:00 AM EDT Clinical Support [facility] MED [facility] PEDS [address] [place] [address] Luma Dalton RN [address] [place] [address] 03/21/2025 11:30 AM EDT Office Visit [facility] MED [facility] PEDS [address] [place] [address] Milena Shoemaker MD [address] [place] [address] documented as of this encounter Visit Diagnoses Diagnosis Chronic midline low back pain without sciatica documented in this encounter Additional Health Concerns Assessment Noted Time PHQ-9 Depression Total Score: 7 07/15/19 23 1:17 PM EST documented as of this encounter Care Teams Side Sawyer Relationship Specialty Start Date End Date Milena Shoemaker MD [address] [place] [address] PCP - General Family Medicine 08/12/22 Maria G Sellers CNP Psychiatrist 02/23/23 documented as of this encounter
--- OUTSIDE RECORDS SUMMARY | 2025-02-19 20:25 | XMS_ITS | Encounter Summary ---
Author Organization [employer] Address [address] [facility] 7t [place] [address] Care Team Providers Care Tester Electronic Scale Name Role Phone Milena Shoemaker MD Primary Care Provider [phone] Reason for Visit * Reason Comments Med Refill Encounter Details Date Type Department Care Team ([facility] st Contact Info) Description 02/18/2025 Refill [facility] CHC MED & PEDS [address] [place], [place] [phone] Eri Leo MD [address] [place] [address] Asthma, unspecified asthma severity, unspecified whether complicated, unspecified whether persistent Social History Tobacco Use Types Packs/Day Years Used Date Smoking Tobacco: Every Day Cigarettes Passive Smoke Exposure: Past Smokeless Tobacco: Never Alcohol Use Standard Drinks/Week Comments Never 0 (1 standard drink = 0.6 oz pur e alcohol) Depression Answer Date Recorded Patient Health Questionnaire-9 Score 4 01/17/2025 Patient Health Questionnaire-9 Score 4 01/17/2025 Last PHQ-9: Questionnaire Data Not on file 0 01/17/2025 Housing Stability Answer Date Recorded What is your housing situation today? I have anselmo chua 12/17/[address] you li ve. Do you have problems with any of the following? None of the above 12/17/2024 Food Insecurity Answer Date Recorded Within the past 12 months, y ou worried that your food would run out before you got money to buy more: Never True 01/17/2025 Within the past 12 months,th e food you bought just didn't last and you didn't have enough money to get more: Never True 12/2024 Transportation Answer Date Recorded In the past 12 months, has l ack of transportation kept you from medical appts, meetings, work or from getting things needed for daily living? No 01/17/2025 Utilities Answer Date Recorded In the past 12 months, has t he electric, gas, oil or water company threatened to shut off services in your home? No 01/17/2025 Depression Answer Date Recorded Patient Health Questionnaire-2 Score 2 01/17/2025 Internet Access Answer Date Recorded Internet Access Q1 Yes 01/17/2025 Internet Access Q2 Not on file 01/17/2025 Sex and Gender Information Value Date Recorded Sex Assigned at Male 05/20/2022 2:16 PM EST Legal Sex Male 2:02 PM EST Gender Identity Male 05/20/2022 2:16 PM EST Sexual Orientation Straight 07/15/2022 12 :45 PM EST documented as of this encounter Plan of Treatment Upcoming Encounters Date Type Department Care Team (Late st Contact Info) Description 03/07/2025 10:00 AM EDT Clinical Support [facility] MED & PEDS [address] [place] [address] Luma Dalton RN [address] [place] [address] 03/21/2025 11:30 AM EDT Office Visit [facility] MED & PEDS [address] [place] [address] Milena Shoemaker MD [address] [place] [address] documented as of this encounter Visit Diagnoses Diagnosis Asthma, unspecified asthma severity, unspecified whether complicated, unspecified whether persistent documented in this encounter Additional Health Concerns Assessment Noted Time PHQ-9 Depression Total Score: 4 01/18/20 25 12:43 PM EDT documented as of this encounter Care Teams Tester Electronic Scale Relationship Specialty Start Date End Date Milena Shoemaker MD [address] [place] [address] PCP - General Family Medicine 08/12/22 Maria G Sellers CNP Psychiatrist 02/23/23 documented as of this encounter
--- OUTSIDE RECORDS SUMMARY | 2025-02-19 20:25 | XMS_ITS | Clinical Summary ---
Author Organization [facility] Address [address] [place] [address] Care Team Providers Care Wood Router Hand Name Role Phone Milena Shoemaker MD Primary Care Provider [phone] Social History Tobacco Use Types Packs/Day Years Used Date Smoking Tobacco: Never Assessed Sex and Gender Information Value Date Recorded Sex Assigned at Not on file Legal Sex Male 2:57 PM EDT Gender Identity Not on file Sexual Orientation Not on file Plan of Treatment Health Maintenance Due Date Last Done Comments Hepatitis B Vaccine (1 of 3 - 19+ 3-dose series) 11/21 Colorectal Cancer Screening: Annual FOBT 2021 Colorectal Cancer Screening: Colonoscopy 2021 Colorectal Cancer Screening: Sigmoidoscopy 2021 Pneumococcal Vaccine: 50+ Years (1 of 1 - PCV) 023 Influenza Vaccine (#1) 2025 Insurance Medicare Medicaid [place] Care Teams Wood Router Hand Relationship Specialty Start Date End Date Milena Shoemaker MD [address] [place] [address] PCP - General Family Medicine 11/05/22
--- OUTSIDE RECORDS SUMMARY | 2025-02-19 20:25 | XMS_ITS | Encounter Summary ---
Author Organization [employer] Address [address] [facility] 7 [place] [address] Care Team Providers Care Sample Tester Grinder Name Role Phone Milena Shoemaker MD Primary Care Provider [phone] Reason for Visit * Reason Onset Date Comments Hospital Follow-up 09/23/2023 Encounter Details Date Type Department Care Team ([facility] Contact Info) Description 09/23/2023 Telephone [facility] CHC MED & PEDS [address] [place], [place] [phone] Milena Shoemaker MD [address] [place] [address] Hospital Follow-up Social History Tobacco Use Types [...] from pt requesting a HDF appt. Hospital: [facility] then transferred to [facility] Date of admission: unknown Discharge date: 09/15 Diagnosed: Septic arthritis of vertebra and ID Please contact pt at [phone] documented in this encounter Plan of Treatment Upcoming Encounters Date Type Department Care Team (Late st Contact Info) Description 03/07/2025 10:00 AM EDT Clinical Support [facility] MED & PEDS [address] [place] [address] Luma Dalton, LUIS [address] [place] [address] 03/21/2025 11:30 AM EDT Office Visit [facility] MED & PEDS [address] [place] [address] Milena Shoemaker MD [address] [place] [address] documented as of this encounter Visit Diagnoses Not on filedocumented in this encounter Additional Health Concerns Assessment Noted Time PHQ-9 Depression Total Score: 7 07/15/19 23 1:17 PM EST documented as of this encounter Care Teams Sample Tester Grinder Relationship Specialty Start Date End Date Milena Shoemaker MD [address] [place] [address] PCP - General Family Medicine 08/12/22 Maria G Sellers, GLASS GLAZIER Psychiatrist 02/23/23 documented as of this encounter
--- OUTSIDE RECORDS SUMMARY | 2025-02-19 20:25 | XMS_ITS | Encounter Summary ---
Author Organization [employer] Address [address] [facility] 7t [place] [address] Care Team Providers Care Records Specialist Name Role Phone Milena Shoemaker MD Primary Care Provider [phone] Reason for Visit * Reason Onset Date Comments Med Refill 02/13/2025 Encounter Details Date Type Department Care Team ([facility] st Contact Info) Description 02/13/2025 Refill [facility] CHC MED & PEDS [address] [place] [address] Milena Shoemaker MD [address] [place] [address] Anaphylaxis, sequela Social History Tobacco Use Types Packs/Day Years [...] 03/07/2025 10:00 AM EDT Clinical Support [facility] MED & PEDS [address] [place] [address] Luma Dalton RN [address] [place] [address] 03/21/2025 11:30 AM EDT Office Visit [facility] MED & PEDS [address] [place] [address] Milena Shoemaker MD [address] [place] [address] documented as of this encounter Visit Diagnoses Diagnosis Anaphylaxis, sequela documented in this encounter Additional Health Concerns Assessment Noted Time PHQ-9 Depression Total Score: 4 01/18/20 12:43 PM EDT documented as of this encounter Care Teams Records Specialist Relationship Specialty Start Date End Date Milena Shoemaker MD [address] [place] [address] PCP - General Family Medicine 08/12/22 Maria G Sellers CNP Psychiatrist 02/23/23 documented as of this encounter
--- OUTSIDE RECORDS SUMMARY | 2025-02-19 20:25 | XMS_ITS | Encounter Summary ---
Author Organization [employer] Address 75 [facility] 7t [place] [address] Care Team Providers Care Lens Finisher Name Role Phone Milena Shoemaker MD Primary Care Provider [phone] Reason for Referral * Consultation (STAT) - Closed Specialty Diagnoses / Procedures Referred By Contac t Referred To Contact Diagnoses Septic arthritis of lumbar spine ([facility]) Milena Shoemaker MD [address] [place] [address] Phone: tel: fax: Myla Garza MD [address] [place] [address] Phone: tel: fax: Referral ID Status Reason Start Date Expiration Date V isits Requested Visits Authorized [id number] Closed Specialty Services Required 09/13/2023 09/12/2024 1 1 Reason for Visit * Reason Onset Date Comments Call Back Request 09/12/2023 Encounter Details Date Type Department Care Team (Late st Contact Info) Description 09/12/2023 Telephone [facility] MEDICINE [address] [place] [address] Milena Shoemaker MD [address] [place], [place] [phone] Call Back Request Social History Tobacco Use [...] EDT Tc to Sanna, she stated that [facility] accepted him and [facility] will handle his IV antibiotics. There is no ID referral available as no one would take the pt as stated by Sanna. Sanna is the nurse respiratory care faculty so is the de facto home health care social worker for the pt at the hospital. Phone number for Dr. Zimmerman is [phone]. If unable to get a hold of this provider, the other provider working with Dr. Zimmerman is Dr. Beltran, number [phone]. * Telephone Encounter - Milena Shoemaker MD - 09/13/2023 2:52 PM EDT Please request Sanna to provide Dr. Zimmerman phone, he also needs a VNA agency to be setup before he goes home. Please get the home health care social worker involved as this needs coordination [...] PM EDT Tc from Sanna at the [facility] requesting a call back to get orders for the patient to continue at home IV antibiotics if not the patient would have stay in the hospital to finish the process please call Sanna at [phone] Ext. [phone] documented in this encounter Plan of Treatment Upcoming Encounters Date Type Department Care Team (Late st Contact Info) Description 03/07/2025 10:00 AM EDT Clinical Support [facility] MED & PEDS [address] [place] [address] Luma Dalton, LUIS [address] [place] [address] 03/21/2025 11:30 AM EDT Office Visit [facility] MED & PEDS [address] [place] [address] Milena Shoemaker MD [address] [place] [address] Scheduled Referrals Name Type Priority Associated Diagnoses [...] documented as of this encounter Care Teams Lens Finisher Relationship Specialty Start Date End Date Milena Shoemaker MD [address] [place] [address] PCP - General Family Medicine 08/12/22 Maria G Sellers CNP Psychiatrist 02/23/23 documented as of this encounter
--- OUTSIDE RECORDS SUMMARY | 2025-02-19 20:25 | XMS_ITS | Encounter Summary ---
Author Organization [employer] Address 75 [facility] 7t [place] [address] Care Team Providers Care Veterinary Technician Assistant Name Role Phone Milena Shoemaker MD Primary Care Provider [phone] Reason for Visit * Reason Onset Date Comments Med Refill 02/13/2025 Encounter Details Date Type Department Care Team ([facility] st Contact Info) Description 02/13/2025 Refill [facility] CHC MED & PEDS [address] [place], [place] [phone] Milena Shoemaker MD [address] [place] [address] Chronic midline low back pain without sciatica; Anaphylaxis, sequela Social History Tobacco Use Types [...] Description 03/07/2025 10:00 AM EDT Clinical Support [facility] MED & PEDS [address] [place] [address] Luma Dalton, LUIS [address] [place] [address] 03/21/2025 11:30 AM EDT Office Visit [facility] MED & PEDS [address] [place] [address] Milena Shoemaker MD [address] [place] [address] documented as of this encounter Visit Diagnoses Diagnosis Chronic midline low back pain without sciatica Anaphylaxis, sequela documented in this encounter Additional Health Concerns Assessment Noted Time PHQ-9 Depression Total Score: 4 01/18/20 25 12:43 PM EDT documented as of this encounter Care Teams Veterinary Technician Assistant Relationship Specialty Start Date End Date Milena Shoemaker MD [address] [place] [address] PCP - General Family Medicine 08/12/22 Maria G Sellers CNP Psychiatrist 02/23/23 documented as of this encounter
--- OUTSIDE RECORDS SUMMARY | 2025-02-19 20:25 | XMS_ITS | Encounter Summary ---
Author Organization [employer] Address 75 [facility] 7t [place] [address] Care Team Providers Care Electric Train Driver Name Role Phone Milena Shoemaker MD Primary Care Provider [phone] Reason for Visit * Reason Onset Date Comments Call Back Request 12/23/2023 Encounter Details Date Type Department Care Team ([facility] Contact Info) Description 12/23/2023 Telephone [facility] MEDICINE [address] [place] [address] Milena Shoemaker MD [address] [place] [address] Call Back Request Social History Tobacco Use [...] increased to 75 mg and not to machine operator picker the 100 mg. Pt verbalized understanding [...] Description 03/07/2025 10:00 AM EDT Clinical Support [facility] MED & PEDS [address] [place] [address] Luma Dalton RN [address] [place] [address] 03/21/2025 11:30 AM EDT Office Visit [facility] CHC MED & PEDS [address] [place] [address] Milena Shoemaker MD [address] [place] [address] documented as of this encounter Visit Diagnoses Not on filedocumented in this encounter Additional Health Concerns Assessment Noted Time PHQ-9 Depression Total Score: 7 07/15/19 23 1:17 PM EST documented as of this encounter Care Teams Electric Train Driver Relationship Specialty Start Date End Date Milena Shoemaker MD [address] [place] [address] PCP - General Family Medicine 08/12/22 Maria G Sellers CNP Psychiatrist 02/23/23 documented as of this encounter
--- OUTSIDE RECORDS SUMMARY | 2025-02-19 20:25 | XMS_ITS | Encounter Summary ---
Author Organization [employer] Address 75 [facility] 7t [place] [address] Care Team Providers Care Javascript Engineer Name Role Phone Milena Shoemaker MD Primary Care Provider [phone] Reason for Visit * Reason Comments Med Refill Encounter Details Date Type Department Care Team ([facility] st Contact Info) Description 06/01/2023 Refill [facility] CHC MED & PEDS [address] [place], [place] [phone] Milena Shoemaker MD [address] [place] [address] Chronic midline low back pain without sciatica [...] PM EST documented as of this encounter Functional Status * Over the last 2 weeks, how often have you been bothered by any of the following problems? Question Answer Date of Assessment Author Feeling nervous, anxious, or on edge 1 06/01/2023 9:35 AM Luma Cade RN Not being able to stop or co ntrol worrying 1 06/01/2023 9:35 AM Luma Cade RN Worrying too much about diff erent things 1 06/01/2023 9:35 AM Luma Cade RN Trouble relaxing 0 06/01/2023 9:35 AM Luma Rodriguez RN Being so restless that it is hard to sit still 1 06/01/2023 9:35 AM Luma Cade RN Becoming easily annoyed or irritable 0 06/01/2023 9:35 AM Luma Cade RN Feeling afraid as if somethi ng awful might happen 0 06/01/2023 9:35 AM Luma Cade RN CONTRERAS-7 Total Score 4 06/01/2023 9:35 AM Luma Cade RN documented as of this encounter Miscellaneous Notes * Telephone Encounter - Luma Lares RN - 06/01/2023 2:41 PM EST TC to pt regarding message below from PCP. Pt verbalized understanding. documented in this encounter Plan of Treatment Upcoming Encounters Date Type Department Care Team (Late st Contact Info) Description 03/07/2025 10:00 AM EDT Clinical Support [facility] MED & PEDS [address] [place] [address] Luma Dalton, LUIS [address] [place] [address] 03/21/2025 11:30 AM EDT Office Visit [facility] MED & PEDS [address] [place] [address] Milena Shoemaker MD [address] [place] [address] documented as of this encounter Visit Diagnoses Diagnosis Chronic midline low back pain without sciatica documented in this encounter Additional Health Concerns Assessment Noted Time PHQ-9 Depression Total Score: 7 07/15/19 23 1:17 PM EST documented as of this encounter Care Teams Javascript Engineer Relationship Specialty Start Date End Date Milena Shoemaker MD [address] [place] [address] PCP - General Family Medicine 08/12/22 Maria G Sellers CNP Psychiatrist 02/23/23 documented as of this encounter
--- OUTSIDE RECORDS SUMMARY | 2025-02-19 20:25 | XMS_ITS | Encounter Summary ---
Author Organization [employer] Address 75 [facility] 7 [place] [address] Care Team Providers Care Wild Oyster Harvester Name Role Phone Milena Shoemaker MD Primary Care Provider Reason for Visit * Reason Comments Med Refill Encounter Details Date Type Department Care Team ([facility] Contact Info) Description 01/23/2024 Refill [facility] CHC MED & PEDS [address] [place], [place] [phone] Olivia Garcia MD [address] [place] [address] Chronic midline low back pain without sciatica [...] 03/07/2025 10:00 AM EDT Clinical Support [facility] MED & PEDS [address] [place] [address] Luma Dalton RN [address] [place] [address] 03/21/2025 11:30 AM EDT Office Visit [facility] MED & PEDS [address] [place] [address] Milena Shoemaker MD [address] [place] [address] documented as of this encounter Visit Diagnoses Diagnosis Chronic midline low back pain without sciatica documented in this encounter Additional Health Concerns Assessment Noted Time PHQ-9 Depression Total Score: 7 07/15/19 23 1:17 PM EST documented as of this encounter Care Teams Wild Oyster Harvester Relationship Specialty Start Date End Date Milena Shoemaker MD [address] [place] [address] PCP - General Family Medicine 08/12/22 Maria G Sellers CNP Psychiatrist 02/23/23 documented as of this encounter
--- OUTSIDE RECORDS SUMMARY | 2025-02-19 20:25 | XMS_ITS | Encounter Summary ---
Author Organization [employer] Address 75 [facility] 7t [place] [address] Care Team Providers Care Night Court Magistrate Name Role Phone Milena Shoemaker MD Primary Care Provider [phone] Reason for Visit * Reason Comments Med Refill Encounter Details Date Type Department Care Team ([facility] st Contact Info) Description 10/18/2023 [facility] [address] [place], [place] [phone] Milena Shoemaker MD [address] [place] [address] Diabetic ulcer of toe of left foot [...] 10:00 AM EDT Clinical Support [facility] MED & PEDS [address] [place] [address] Luma Dalton RN [address] [place] [address] 03/21/2025 11:30 AM EDT Office Visit [facility] MED & PEDS [address] [place] [address] Milena Shoemaker MD [address] [place] [address] documented as of this encounter Visit Diagnoses Diagnosis 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) documented in this encounter Additional Health Concerns Assessment Noted Time PHQ-9 Depression Total Score: 7 07/15/19 23 1:17 PM EST documented as of this encounter Care Teams Night Court Magistrate Relationship Specialty Start Date End Date Milena Shoemaker MD [address] [place] [address] PCP - General Family Medicine 08/12/22 Maria G Sellers CNP Psychiatrist 02/23/23 documented as of this encounter
--- OUTSIDE RECORDS SUMMARY | 2025-02-19 20:25 | XMS_ITS | Encounter Summary ---
Author Organization [employer] Address 75 [facility] 7t [place] [address] Care Team Providers Care Public Service Administrator Name Role Phone Milena Shoemaker MD Primary Care Provider [phone] Encounter Details Date Type Department Care Team ([facility] st Contact Info) Description 01/16/2025 Results Follow-Up [facility] MEDICINE [address] [place] [address] Sisi Olsen MD [address] [place] [address] POCT Rapid COVID Ag, Respiratory Viral Panel PCR Social History Tobacco Use Types Packs/Day Years [...] this encounter Functional Status * Over the past 2 weeks, how often have you been bothered by any of the following problems? Question Answer Date of Assessment Author Patient Health Questionnaire -2 Score 2 01/17/2025 12:43 PM EDT Kimi Rogers MA * Little interest or pleasure in doing things Answer Date of Assessment Author Several days 01/17/2025 12:43 PM EDT Kimi Rogers MA * Feeling down, depressed, or hopeless Answer Date of Assessment Author Several days 01/17/2025 12:43 PM EDT Kimi Rogers MA * Trouble falling or staying asleep, or sleeping too much Answer Date of Assessment Author Several days 01/17/2025 12:43 PM EDT Kimi Rogers MA * Feeling tired or having little energy Answer Date of Assessment Author Several days 01/17/2025 12:43 PM EDT Kimi Rogers MA * Poor appetite or overeating Answer Date of Assessment Author Not at all 01/17/2025 12:43 PM EDT Kimi Rogers MA * Feeling bad about yourself - or that you are a failure or have let yourself or your family down Answer Date of Assessment Author Not at all 01/17/2025 12:43 PM EDT Kimi Rogers MA * Trouble concentrating on things, such as reading the newspaper or watching television Answer Date of Assessment Author Not at all 01/17/2025 12:43 PM EDT Kimi Rogers MA * Moving or speaking so slowly that other people could have noticed? Or the opposite - being so fidgety or restless that you have been moving around a lot more than usual. Answer Date of Assessment Author Not at all 01/17/2025 12:43 PM EDT Kimi Rogers MA * Thoughts that you would be better off or hurting yourself in some way Answer Date of Assessment Author Not at all 01/17/2025 12:43 PM EDT Kimi Rogers MA * Patient Health Questionnaire-9 Score Answer Date of Assessment Author 4 01/17/2025 12:43 PM EDT Kimi Rogers MA * How difficult have these problems made it for you to do your work, take care of things at home, or get along with other people? Answer Date of Assessment Author Not difficult at all 01/17/2025 12:43 PM EDT Kimi Zepeda MA documented as of this encounter Miscellaneous Notes * Result Encounter Note - Sisi Olsen MD - 01/16/2025 2:28 PM EDT Please send Stable Lab Letter documented in this encounter Plan of Treatment Upcoming Encounters Date Type Department Care Team (Late st Contact Info) Description 03/07/2025 10:00 AM EDT Clinical Support [facility] MED & PEDS [address] [place] [address] Luma Dalton, LUIS [address] [place] [address] 03/21/2025 11:30 AM EDT Office Visit [facility] MED & PEDS [address] [place] [address] Milena Shoemaker MD [address] [place] [address] documented as of this encounter Visit Diagnoses Not on filedocumented in this encounter Additional Health Concerns Assessment Noted Time PHQ-9 Depression Total Score: 8 12/18/19 4:39 PM EDT documented as of this encounter Care Teams Public Service Administrator Relationship Specialty Start Date End Date Milena Shoemaker MD [address] [place] [address] PCP - General Family Medicine 08/12/22 Maria G Sellers CNP Psychiatrist 02/23/23 documented as of this encounter
--- OUTSIDE RECORDS SUMMARY | 2025-02-19 20:25 | XMS_ITS | Encounter Summary ---
Author Organization [employer] Address 75 [facility] 7 [place] [address] Care Team Providers Care Brownfield Redevelopment Site Manager Name Role Phone Milena Shoemaker MD Primary Care Provider [phone] Reason for Visit * Reason Onset Date Comments Med Refill 10/03/2024 Encounter Details Date Type Department Care Team ([facility] st Contact Info) Description 10/03/2024 Refill [facility] CHC MED & PEDS [address] [place], [place] [phone] Milena Shoemaker MD [address] [place] [address] Diabetic polyneuropathy associated with type 2 diabetes mellitus (CMS/HCC) Social History Tobacco Use Types Packs/Day [...] Description 03/07/2025 10:00 AM EDT Clinical Support [facility] MED & PEDS [address] [place] [address] Luma Dalton, LUIS [address] [place] [address] 03/21/2025 11:30 AM EDT Office Visit [facility] MED & PEDS [address] [place] [address] Milena Shoemaker MD [address] [place] [address] documented as of this encounter Visit Diagnoses Diagnosis Diabetic polyneuropathy associated with type 2 diabetes mellitus ([facility]) documented in this encounter Additional Health Concerns Assessment Noted Time PHQ-9 Depression Total Score: 7 07/15/19 23 1:17 PM EST documented as of this encounter Care Teams [employer] Redevelopment Site Manager Relationship Specialty Start Date End Date Milena Shoemaker MD [address] [place] [address] PCP - General Family Medicine 08/12/22 Maria G Sellers CNP Psychiatrist 02/23/23 documented as of this encounter
--- OUTSIDE RECORDS SUMMARY | 2025-02-19 20:25 | XMS_ITS | Clinical Summary ---
Author Organization [facility] Address [address] [place] [address] Care Team Providers Care Scale Tester Name Role Phone Milena Shoemaker MD Primary Care Provider [phone] Allergies Active Allergy Reactions Criticality Noted Date [...] drink = 0.6 oz pur e alcohol) [facility] Utilities Answer Date Recorded In the past 12 months has th e [employer], [employer], oil, or water [employer] threatened to shut off services in your [...] place to sleep or slept in a halfway (including now)? No 08/31/2023 Sex and Gender [...] Zoster (Shingles) Vaccine (1 of 2) 2022 Creatinine with GFR 09/15/2024 09/16/2023, 09/15/2023, 09/14/2023, Additional history exists Influenza Vaccine 01/11/2025 COVID-19 Vaccine (1 - 2023-2 5 season) 2025 Procedures Procedure Name Priority Date/Time Associated Diagnosis Comments BASIC METABOLIC PANEL Routine 09/16/2023 5:08 AM EDT from Last 3 Months or Most Recently Relevant to Health Maintenance Results * (ABNORMAL) Basic Metabolic Panel (Early AM) (09/16/2023 5:08 AM EDT) Glucose 154(H) 65 - 99 mg/dL 09/16/2023 5:57 AM EDT [facility] Comment:Fasting: <100 mg/dL, Non-Fasting: <200 mg/dL (ADA 2005) Blood Urea Nitrogen (BUN) 23(H) 8 - 21 mg/dL 09/16/2023 5:57 AM EDT [facility] Creatinine 1.2 0.5 - 1.3 mg/dL 09/16/2023 5:57 AM EDT [facility] eGFR 74 >59 09/16/2023 5:57 AM EDT [facility] Comment:CKD-EPI (2020) in mL /min/1.73 sq meters. Sodium 138 136 - 145 mmol/L 09/16/2023 5:57 AM EDT [facility] Potassium 3.8 3.4 - 5.3 mmol/L 09/16/2023 5:57 AM EDT [facility] Chloride 101 98 - 107 mmol/L 09/16/2023 5:57 AM EDT [facility] CO2 27 22 - 33 mmol/L 09/16/2023 5:57 AM EDT [facility] Anion Gap 10 7 - 17 09/16/2023 5:57 AM EDT [facility] Calcium 8.8 8.7 - 10.5 mg/dL 09/16/2023 5:57 AM EDT [facility] BUN/Creatinine Ratio 19 10.0 - 25.0 Ratio 09/16/2023 5:57 AM EDT [facility] Blood specimen (specimen) (Plasma/Serum) 09/16/2023 5:08 AM EDT 09/16/2023 5:32 AM EDT Yareli Mccoy MD LAB [place]OD [place] [address], [place] [address] from Last 3 Months or Most Recently Relevant to Health Maintenance Insurance MEDICARE PART A & B [facility] MEDICARE PART A & B [facility] Advance Directives * Full Code (Latest Code Status on File) Date Activated Date Inactivated Comments 08/30/2023 11:42 PM Question Answer Comments Decision Thoroughly Discussed with: Patient Care Teams Scale Tester Relationship Specialty Start Date End Date Milena Shoemaker MD [address] [place] [address] PCP - General Family Medicine 08/30/23
--- OUTSIDE RECORDS SUMMARY | 2025-02-19 20:25 | XMS_ITS | Encounter Summary ---
Author Organization [employer] Address 75 [facility] 7 [place] [address] Care Team Providers Care Muskrat Trapper Name Role Phone Milena Shoemaker MD Primary Care Provider [phone] Encounter Details Date Type Department Care Team ([facility] Contact Info) Description 12/23/2023 Orders Only [facility] CHC MED & PEDS [address] [place], [place] [phone] Johanna Camargo MD [address] [place] [address] Primary hypertension (Primary Dx) Social History Tobacco [...] Description 03/07/2025 10:00 AM EDT Clinical Support [facility] MED & PEDS [address] [place] [address] Luma Dalton RN [address] [place] [address] 03/21/2025 11:30 AM EDT Office Visit [facility] MED & PEDS [address] [place] [address] Milena Shoemaker MD [address] [place] [address] documented as of this encounter Visit Diagnoses Diagnosis Primary hypertension- Primary Unspecified essential hypertension documented in this encounter Additional Health Concerns Assessment Noted Time PHQ-9 Depression Total Score: 7 07/15/19 23 1:17 PM EST documented as of this encounter Care Teams Muskrat Trapper Relationship Specialty Start Date End Date Milena Shoemaker MD [address] [place] [address] PCP - General Family Medicine 08/12/22 Maria G Sellers CNP Psychiatrist 02/23/23 documented as of this encounter
--- OUTSIDE RECORDS SUMMARY | 2025-02-19 20:25 | XMS_ITS | Clinical Summary ---
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 Role Phone Milena Shoemaker MD Primary Care Provider [phone] Allergies Active Allergy Reactions Criticality Noted Date Comments Cefepime Rash High 11/22/2024 Coconut Fatty Acid Hives,Rash Low 07/15/2022 Cyclobenzaprine Hives Low 07/15/2022 Other reaction(s): Almonds, swelling, Tongue swelling Lisinopril Cough Low 07/15/2022 Meloxicam Other Low 07/15/2022 Other reaction(s): Tongue swelling Naproxen Cough High 07/15/2022 Other reaction(s): stomach pain Other Reaction(s): STOMACH UPSET Quetiapine Unknown 08/11/2023 Shellfish Allergy Hives,Anaphylaxis High 07/15/2022 Other reaction(s): Swelling of throat Tramadol [...] in the morning. 90 tablet 023 Active mupirocin (Bactroban) 2 % ointment Apply topically 2 times daily. 024 Active ondansetron (Zofran) 4 MG tablet Take 1 tablet (4 mg) by mouth every 8 (eight) hours if needed for nausea or vomiting. 20 tablet Active Blood Glucose Monitoring Suppl (FreeStyle [place] Lite) w/Device kit Use to test blood sugar QID times daily 1 kit Active Lancets misc Use to test blood sugar QID times daily 100 each Active glucose blood (FreeStyle Precision Alexander Test) test strip 1 each by Other route 3 times daily. TID due to medicare coverage 100 each Active clotrimazole-bet amethasone (Lotrisone) cream APPLY TO THE AFFECTED AREA(S) TWICE DAILY FOR 28 DAYS 45 g Active fluticasone (Flonase) 50 MCG/ACT nasal sprayIndications :Seasonal allergies USE ONE SPRAY IN EACH NOSTRIL TWICE DAILY 16 g Active gabapentin (Neurontin) 800 MG tabletIndication s:Diabetic polyneuropathy associated with type 2 diabetes mellitus (CMS/HCC) TAKE ONE TABLET THREE TIMES DAILY 90 tablet Active naloxone (Narcan) 4 mg/0.1 mL nasal spray Administer 1 spray (4 mg) into affected nostril(s) if needed for opioid reversal. May repeat every 2-3 minutes if needed, alternating nostrils, until medical assistance becomes available. 2 each 2025 Active atorvastatin (Lipitor) 80 MG tabletIndication s:Hyperlipidemia , unspecified hyperlipidemia type TAKE ONE TABLET AT BEDTIME 90 tablet Active Trulicity 3 MG/0.5ML solution auto-injector INJECT ONE PEN (=3MG) SUBCUTANEOUSLY ONCE A WEEK Active BD Pen Needle Short Ultrafine 31G X 8 MM misc 1 each 4 times daily. Active capsaicin (Zostrix) 0.025 % cream Apply topically 2 times daily. 56.6 g 025 2025 Active clotrimazole (Lotrimin) 1 % creamIndications :Tinea versicolor Apply topically 2 times daily. 90 g 025 Active Alcohol Swabs (Alcohol Prep) 70 % pads USE FOUR TIMES DAILY 100 each 11 07/21/2 025 Active acetaminophen (Tylenol 8 Hour) 650 MG ER tablet TAKE ONE TABLET BY MOUTH EVERY EIGHT HOURS NEEDED FOR PAIN 90 tablet 2 Active magnesium oxide (Mag-Ox) 400 (240 Mg) MG tabletIndication s:Cramp and spasm TAKE ONE TABLET BY MOUTH EVERY MORNING 90 tablet 1 Active tamsulosin (Flomax) 0.4 MG 24 hr capsule TAKE ONE CAPSULE BY MOUTH EVERY MORNING 90 capsule 1 Active polyethylene glycol, PEG, 3350 (Miralax) 17 g packet MIX ONE PACKET IN EIGHT OUNCES OF WATER, JUICE,SODA, COFFEE, OR TEA TWICE DAILY NEEDED FOR CONSTIPATION Active docusate sodium (Colace) 100 MG capsule Take 100 mg by mouth 2 times daily. Active amLODIPine (Norvasc) 5 MG tabletIndication s:Primary hypertension Take 1 tablet (5 mg) by mouth Once per day. 90 tablet Active chlorthalidone (Hygroton) 50 MG tabletIndication s:Primary hypertension Take 1 tablet (50 mg) by mouth in the morning. 90 tablet Active hydrALAZINE (Apresoline) 100 MG tabletIndication s:Primary hypertension Take 1 tablet (100 mg) by mouth 3 times daily. 90 tablet 025 2025 Active labetalol (Normodyne) 300 MG tabletIndication s:Primary hypertension Take 1 tablet (300 mg) by mouth 2 times daily. 60 tablet 025 2025 Active losartan (Cozaar) 100 MG tabletIndication s:Essential (primary) hypertension,Kristan cody hypertension Take 1 tablet (100 mg) by mouth in the morning. 90 tablet Active spironolactone (Aldactone) 25 MG tabletIndication s:Primary hypertension Take 1 tablet (25 mg) by mouth in the morning. 90 tablet 025 Active Continuous Glucose Sensor (FreeStyle Cata 3 Plus Sensor) misc 1 each every 15 days. Apply 1 every 15 days as directed for CGM 2 each Active empagliflozin (Jardiance) 25 MGIndications:Ty pe 2 diabetes mellitus with hyperglycemia, with long-term current use of insulin (CMS/HCC) Take 1 tablet (25 mg) by mouth in the morning. 90 tablet 1 025 Active insulin degludec (Tresiba FlexTouch) 200 UNIT/ML injection Inject 60 Units under the skin at bedtime. 3 mL 12 025 Active insulin aspart (NovoLOG FLEXPEN) 100 UNIT/ML pen Inject 10 Units under the skin before breakfast, before lunch, and before evening meal. 10 mL 12 025 Active Tirzepatide 2.5 MG/0.5ML solution auto-injectorInd ications:Type 2 diabetes mellitus with hyperglycemia, with long-term current use of insulin (CMS/HCC) Inject 2.5 mg under the skin 1 (one) time per week. Do not start before January 21, 2025. 2 mL 2 025 Active baclofen (Lioresal) 10 MG tabletIndication s:Chronic midline low back pain without sciatica TAKE ONE TABLET THREE TIMES DAILY 90 tablet 2 025 Active oxyCODONE (Roxicodone) 5 MG immediate release tabletIndication s:Chronic midline low back pain without sciatica Take 1 tablet (5 mg) by mouth every 6 (six) hours if needed for severe pain. 112 tablet 025 Active EPINEPHrine (Epipen) 0.3 MG/0.3ML injection syringeIndicatio ns:Anaphylaxis, sequela INJECT INTRAMUSCULARLY DIRECTED ON PACKAGE 4 each 025 Active albuterol (Ventolin HFA) 108 (90 Base) MCG/ACT inhalerIndicatio ns:Asthma, unspecified asthma severity, unspecified whether complicated, unspecified whether persistent INHALE 2 PUFFS BY MOUTH EVERY 4 TO 6 HOURS NEEDED FOR SHORTNESS OF BREATH OR WHEEZING 18 g 1 025 Active EPINEPHrine (Epipen) 0.3 MG/0.3ML injection syringeIndicatio ns:Anaphylaxis, sequela INJECT INTRAMUSCULARLY DIRECTED ON PACKAGE 4 each 024 2024 Discontinued( Reorder (will not trigger notification to Pharmacy)) baclofen (Lioresal) 10 MG tabletIndication s:Chronic midline low back pain without sciatica TAKE ONE TABLET THREE TIMES DAILY 90 tablet 2 025 2024 Discontinued albuterol (Ventolin HFA) 108 (90 Base) MCG/ACT inhalerIndicatio ns:Asthma, unspecified asthma severity, unspecified whether complicated, unspecified whether persistent INHALE 2 PUFFS BY MOUTH EVERY 4 TO 6 HOURS NEEDED FOR SHORTNESS OF BREATH OR WHEEZING 18 g 1 025 2024 Discontinued oxyCODONE (Roxicodone) 5 MG immediate release tabletIndication s:Chronic midline low back pain without sciatica Take 1 tablet (5 mg) by mouth every 6 (six) hours if needed for severe pain. 112 tablet 025 2024 Discontinued( Reorder (will not trigger notification to Pharmacy)) Active Problems Problem Noted Date Diagnosed Date Acute non-recurrent maxillary sinusitis 01/08/20 Assessment & Plan (01/07/2025 4:00 PM EDT): Rapid COVID test is negative today, Rx Z-Dung x 5 days Rest (sleep at least 8 hours a night). Hydrate with plenty of water (avoid caffeine and alcohol). Use saline nose drops to loosen mucus + Flonase Take Acetaminophen (Tylenol )/Ibuprofen as needed to reduce fever, headache, body aches or discomfort Gargle with salt water and use throat sprays/lozenges for throat pain. Use heated, humidified air. If you do not have a humidifier, take hot showers. Cover coughs and sneezes using the crook of your elbow. Follow-up COVID PCR, he has 3 days of symptoms, if positive within the next 2 days, will consider Paxlovid Acute viral conjunctivitis of both eyes 01/08/20 Assessment & Plan (01/07/2025 4:01 PM EDT): Has purulent discharge, probably bacterial infection superimposed. Keep both eyes clean and dry, use natural tears and erythromycin ointment x 1 week Tinea versicolor 12/17/2024 Long-term current use of opiate analgesic 2024 Ulcer of great toe 10/21/2023 Assessment & [...] long-term safety. This is consistent with the [place] [employer] s Standards of Medical Care in Diabetes--2023 (https://diabetesjournals.org/care/article/47/Supplement_1/S126/750018/7-Diabete s-Daysi pgnqzkp-Jxbpgrpwm-yb-Care-in) Assessment & Plan (04/23/2024 1:51 AM EST): [...] will be prudent to refer patient to pack puller. Edema 07/15/2022 Assessment & Plan (07/15/2022 5:13 [...] 70% pads Blood Glucose Monitoring Suppl (Freestyle [place] Lite) w/Device Kit Freestyle Lite test strip Lancets misc Assessment & Plan (10/21/2023 9:34 AM EDT): [...] Encounters Date Type Department Care Team Description 02/18/2025 Refill [facility] [address] [place] [address] Eri Leo MD Asthma, unspecified asthma severity, unspecified whether complicated, unspecified whether persistent 02/13/2025 Refill [facility] [address] [place] [address] Milena Shoemaker MD Anaphylaxis, sequela 02/13/2025 Refill [facility] [address] [phone] Milena Shoemaker MD Chronic midline low back pain without sciatica; Anaphylaxis, sequela 02/11/2025 Refill [facility] [address] [place] [address] Milena Shoemaker MD Chronic midline low back pain without sciatica 02/08/2025 Telephone [facility] [address] [place] [address] Milena Shoemaker MD Referral 01/31/[address] [address] Milena Shoemaker MD Referral 01/21/2025 10:30 AM EDT Clinical Support [facility] [address] [place] [address] Rosanne Whitfield RN Diabetic polyneuropathy associated with type 2 diabetes mellitus (CMS/HCC) [E11.42] 01/21/2025 Travel 01/17/2025 1:30 PM EDT Office Visit [facility] [address] [place] [address] Milena Shoemaker MD Type 2 diabetes mellitus with hyperglycemia, with long-term current use of insulin (CMS/HCC) (Primary Dx); Dietary counseling; Exercise counseling; Class 2 obesity without serious comorbidity with body mass index (BMI) of 38.0 to 38.9 in adult, unspecified obesity type; Resistant hypertension; Skin ulcer of right great toe, unspecified ulcer stage (CMS/HCC); Essential (primary) hypertension; Primary hypertension 01/17/2025 Travel 01/16/[address] [address] Sisi Olsen MD stable lab letter 01/16/2025 Results Follow-Up [facility] [address] [place] [address] Sisi Olsen MD POCT Rapid COVID Ag, Respiratory Viral Panel PCR 01/15/2025 Telephone [facility] [address] [place] [address] Milena Shoemaker MD CHART PREP 01/14/2025 Refill [facility] [address] [place] [address] Luma Dalton RN Chronic midline low back pain without sciatica 01/11/2025 Telephone [facility] [address] [place] [address] Milena Shoemaker MD 01/09/2025 Refill [facility] [address] [place] [address] Milena Shoemaker MD Cramp and spasm 01/07/2025 1:40 PM EDT Office Visit [facility] [address] [place] [address] Sisi Olsen MD Acute viral conjunctivitis of both eyes (Primary Dx); Acute non-recurrent maxillary sinusitis; Seasonal allergies 01/07/2025 Travel 12/30/2024 Refill [facility] [address] [place] [address] Milena Shoemaker MD 12/25/2024 11:00 AM EDT Clinical Support [facility] [address] [place] [address] Luma Dalton, LUIS Long-term current use of opiate analgesic 12/25/2024 Telephone [facility] [address] [place] [address] Luma Dalton RN 12/25/2024 Travel 12/19/2024 Telephone [facility] [address] [place] [address] Milena Shoemaker MD 12/19/2024 Travel 12/17/2024 4:00 PM EDT Office Visit [facility] [address] [place] [address] Milena Shoemaker MD Type 2 diabetes mellitus with hyperglycemia, with long-term current use of insulin ([facility]) (Primary Dx); Cervical radiculopathy; Chronic midline low back pain without sciatica; Tinea versicolor; Hypertension, unspecified type 12/17/2024 Travel 12/13/2024 Telephone [facility] [address] [place] [address] Milena Shoemaker MD requesting call back 12/10/2024 9:30 AM EDT Office Visit [facility] [address] [place] [address] Eri Leo MD Left lower quadrant abdominal pain (Primary Dx); Rectal bleeding; Type 2 diabetes mellitus with hyperglycemia, with long-term current use of insulin ([facility]); Asthma, unspecified asthma severity, unspecified whether complicated, unspecified whether persistent 12/10/2024 Refill [facility] [address] [place] [address] Milena Shoemaker MD Chronic midline low back pain without sciatica 12/10/2024 Travel 11/27/2024 Telephone [facility] [address] [place] [address] Luma Dalton RN 11/27/2024 Travel 11/27/2024 Telephone [facility] [address] [place] [address] Luma Dalton RN 11/27/2024 Patient Outreach [facility] [address] [place] [address] Milena Shoemaker MD Transition Of Care (Tcm) (HDF- scheduled) 11/27/2024 Patient Outreach [facility] [address] [place] [address] Milena Sohemaker MD Transition Of Care (Tcm) (LVM ) 11/23/2024 Telephone [facility] [address] [place] [address] Luma Dalton, RN CURB BUILDER 11/22/2024 Telephone [facility] [address] [place] [address] Luma Dalton, LUIS 11/22/2024 Orders Only [facility] External Provider, [facility] from Last 3 Months Immunizations Immunization Administration Dates Next Due Hep B, adult [...] Sign Reading Time Taken Comments Blood Pressure 150/76 01/17/2025 12:42 PM EDT Pulse 78 01/17/2025 12:42 PM EDT Temperature 36.8 C (98.2 F) 01/17/2025 12:42 PM EDT Respiratory Rate 20 01/17/2025 12:42 PM EDT Oxygen Saturation 98% 01/17/2025 12:42 PM EDT Inhaled Oxygen Concentration - - Weight 116 kg (255 lb 9.6 oz) 01/17/2025 12:42 P M EDT Height 173 cm (5' 8.11 ) 01/17/2025 12:42 PM EDT Body Mass Index 38.74 01/17/2025 12:42 PM EDT Plan of Treatment Upcoming Encounters Date Type Department Care Team (Late st Contact Info) Description 03/07/2025 10:00 AM EDT Clinical Support [facility] [address] [place] [address] Luma Dalton RN [address] [place] [address] 03/21/2025 11:30 AM EDT Office Visit [facility] [address] [place] [address] Milena Shoemaker MD [address] [place] [address] Health Maintenance Due Date Last Done Comments CT Colonography 1972 Colonoscopy 1972 Colorectal Cancer Screening 1972 Dental Prophylaxis 1972 FIT DNA/Cologuard 1972 FIT 1972 FOBT 1972 HIV Screening 1972 Sigmoidoscopy 1972 Eye Exam 1982 Family Planning (PISQ) 11/22/1987 Hepatitis C Screening 1990 Dental Oral Exam 05/15/2023 11/12/2022 Lipid Panel 07/16/2023 07/16/2022 Diabetes: Foot Exam 08/13/2023 08/12/2022, 08/12/2022, 08/12/2022, Additional history exists Dental X-Ray: Bitewings 11/14/2023 11/12/2022, 10/01 COVID-19 Vaccine (2 - season) 2025 08/13/2021 Influenza Vaccine (#1) 2025 2, 02/13/2009, 05/31/2006 Diabetes: Hemoglobin A1C 04/19/2025 025, 12/10/2024, 04/20/2024, Additional history exists Diabetes: Urine Protein Screening 06/25/2025 06/25/2024 Dental X-Ray: Full Mouth 11/13/2025 11/12/2022 Pneumococcal Vaccine: 50+ Years (2 of 2 - PCV) 12/17/2025 05/31/2006 Postponed from 05/31/2007 (Patient Refused) Zoster Vaccines (1 of 2) 12/17/2025 Pos tponed from 2022 (Patient Refused) Alcohol/Substance Use Screening 01/17/2026 01/17/2025 Depression Screening 01/17/2026 01/17/2025, 01/18/20 25 Disability Screening 01/17/2026 01/17/2025 SDOH Screening 01/17/2026 01/17/2025 Tobacco Screening 01/17/2026 01/17/2025 DTaP/Tdap/Td Vaccines (4 - Td or Tdap) [...] age to complete this topic Meningococcal B Vaccine Aged Out No l onger eligible based on patient's age to complete [...] Procedure Name Priority Date/Time Associated Diagnosis Comments POCT GLUCOSE Routine 01/17/2025 1:01 PM EDT Type 2 diabetes mellitus with hyperglycemia, with long-term current use of insulin ([facility]) POCT GLYCATED HEMOGLOBIN, TOTAL Routine 01/17/2025 1:00 PM EDT Type 2 diabetes mellitus with hyperglycemia, with long-term current use of insulin ([facility]) RESPIRATORY VIRAL PANEL PCR Routine 01/07/2025 2:21 PM EDT Seasonal allergies POCT RAPID COVID ANTIGEN Routine 01/07/2025 2:19 PM EDT Seasonal allergies POCT REMI-14 URINE DRUG SCREEN Routine 12/25/2024 10:22 AM EDT Long-term current use of opiate analgesic POCT GLUCOSE Routine 12/17/2024 4:20 PM EDT Type 2 diabetes mellitus with hyperglycemia, with long-term current use of insulin ([facility]) POCT URINALYSIS DIPSTICK Routine 12/10/2024 9:59 AM EDT Type 2 diabetes mellitus with hyperglycemia, with long-term current use of insulin ([facility]) POCT GLYCATED HEMOGLOBIN, TOTAL Routine 12/10/2024 9:43 AM EDT Type 2 diabetes mellitus with hyperglycemia, with long-term current use of insulin ([facility]) POCT GLUCOSE Routine 12/10/2024 9:42 AM EDT Type 2 diabetes mellitus with hyperglycemia, with long-term current use of insulin (CMS/HCC) MR LUMBAR SPINE W AND WO CONTRAST Routine 11/23/2024 1:00 PM EDT MR FOOT W AND WO CONTRAST RIGHT Routine 11/22/2024 6:19 PM EDT URINALYSIS, COMPLETE, WITH REFLEX TO CULTURE Routine 11/22/2024 1:[address] ABDOMEN PELVIS W CONTRAST Routine 11/22/2024 11:06 AM EDT XR TOES 2+ VIEWS RIGHT Routine 10:25 AM EDT XR CHEST 1 VIEW Routine 11/22/2024 10:23 AM EDT CREATININE, RANDOM URINE Routine 06/25/2024 3:06 PM EST INTRAORAL - COMPLETE SERIES OF RADIOGRAPHIC IMAGES Routine 11/12/2022 9:00 AM EDT COMPREHENSIVE ORAL EVALUATION - NEW OR ESTABLISHED PATIENT Routine 11/12/2022 9:00 AM EDT LIPID PANEL, STANDARD Routine 07/16/2022 10:33 AM EST Morbid obesity (CMS/HCC) from Last 3 Months or Most Recently Relevant to Health Maintenance Results * (ABNORMAL) POCT Glucose (01/17/2025 1:01 PM EDT) Only the most recent of3 resultswithin the time period is included. [facility] Glucose Blood, POC 500(A) 60 - 200 mg/dL Comment:[facility] QC Media Lot # [id number] Blood Capillary blood specimen / Unknown 01/17/2025 1:01 PM EDT Milena Shoemaker MD POINT OF CARE TEST ENTER/EDIT ORDERABLES Final Result * (ABNORMAL) POCT HGB A1C (01/17/2025 1:00 PM EDT) Only the most recent of2 resultswithin the time period is included. Hemoglobin A1C 13.1(A) 4.0 - 5.7 % QC Media Lot # [id number] Lot# Expiration Date [id number] Blood 01/17/2025 1:00 PM EDT Milena Shoemaker MD POINT OF CARE TEST ENTER/EDIT ORDERABLES Final Result * Respiratory Viral Panel PCR (01/07/2025 2:21 PM EDT) Adenovirus PCR Not Detected Not Detect. [facility] Bordetella pertussis PCR Not Detected Not Detect. [facility] Comment:Interpret results wi th caution. If B. pertussis isspecifically suspected, additional testing using analternate method is recommended. Bordetella parapertussis PCR Not Detected Not Detect. [facility] Chlamydia pneumoniae PCR Not Detected Not Detect. [facility] Coronavirus 229E PCR Not Detected Not Detect. [facility] Coronavirus HKU1 PCR Not Detected Not Detect. [facility] Coronavirus NL63 PCR Not Detected Not Detect. [facility] Coronavirus OC43 PCR Not Detected Not Detect. [facility] SARS-CoV-2 PCR Not Detected Not Detect. [facility] Comment:SARS-CoV-2 not detec susan by real-time RT-PCR.Note: If clinical suspicion for Sars-CoV-2 is high, continueto maintain precautions and consider repeat testing.Test results should be interpreted in the context ofclinical findings and other laboratory data.Rare polymorphisms exist that could lead to false-negativeor false-positive results. If results do not match theclinical findings, additional testing should be considered.Results reported to [facility]ILLAN SORIANO.This test has been authorized by the FDA under the EmergencyUse Authorization (EUA) for use by authorized laboratories. Influenza A PCR Not Detected Not Detect. [facility] Influenza A Subtype H1 Not Detected Not Detect. [facility] Influenza A H1-2009 PCR Not Detected Not Detect. [facility] Influenza A Subtype H3 Not Detected Not Detect. [facility] Influenza B PCR Not Detected Not Detect. [facility] Human metapneumovirus PCR Not Detected Not Detect. [facility] Rhino/Enterovirus PCR Not Detected Not Detect. [facility] Mycoplasma pneumoniae PCR Not Detected Not Detect. [facility] Parainfluenza 1 PCR Not Detected Not Detect. [facility] Parainfluenza 2 PCR Not Detected Not Detect. [facility] Parainfluenza 3 PCR Not Detected Not Detect. [facility] Parainfluenza 4 PCR Not Detected Not Detect. [facility] RSV PCR Not Detected Not Detect. [facility] Resp Panel NA Note See Note H [facility] Comment:All results must be correlated with clinical findings.Negative results should not be used as the sole basis fordiagnosis, treatment, or other management decisions.A negative result does not exclude the possibility of viralor bacterial infection. Negative results may occur from thepresence of sequence variants in the region targeted by theassay, the presence of inhibitors, an infection caused by anorganism not detected by the panel, or lower respiratorytract infections that are not detected by a nasopharyngealswab specimen. Test results may also be affected byconcurrent antiviral/antibacterial therapy or levels oforganism in the specimen that are below the limit ofdetection for this test.This assay is performed by Multiplexed PCR, utilizing [employer] Film [employer]. Swab 01/07/2025 2:21 PM EDT 01/07/2025 4:54 PM EDT us Sisi Olsen MD LAB BLOOD ORDERABLES Fin al Result [facility] [address] [place] [address] [phone] * POCT Rapid COVID Ag (01/07/2025 2:19 PM EDT) [facility] Rapid COVID Ag Negative Swab 01/07/2025 2:19 PM EDT Sisi Olsen MD POINT OF CARE TEST ENTER /EDIT ORDERABLES Final Result * (ABNORMAL) POCT REMI-14 Urine Drug Screen (12/25/2024 10:22 AM EDT) THC Positive(A) Negative Cocaine Screen, Urine Negative Negative Opiate Screen, Urine Negative Negative Methamphetamine Screen Urine Negative Negative Amphetamine Screen, Urine Negative Negative Benzodiazepines Screen, Urine Negative Negative Barbiturate Screen, Urine Negative Negative Methadone Screen, Urine Negative Negative Buprenophine Screen, Urine Negative Negative TCA, Urine Negative Negative MDMA Urine Negative Negative ng/mL Oxycodone Screen, Urine Positive(A) Negative Phencyclidine (PCP), Urine Negative Negative Propoxyphene, Urine Negative Negative Fentanyl, Urine Negative Negative Urine Urine specimen obtained by clean catch procedure / Unknown 12/25/2024 10:22 AM EDT Result [facility] Milena Shoemaker MD POINT OF CARE TEST ENTER/EDIT ORDERABLES Final Result * (ABNORMAL) POCT Urinalysis (12/10/2024 9:59 AM EDT) Color, UA Yellow Clarity, UA Clear Glucose, UA 3+ 500+++ Bilirubin, UA Negative Ketones, UA Positive Comment:15 mg/dl Spec Grav, UA 1.010 Blood, UA Positive(A) Negative, None Detected pH, UA 5.5 Protein, UA 1+ 70+ Comment:100 mg/dL Urobilinogen, UA 0.2 Leukocytes, UA Negative Negative, Rare, Trace Nitrite, UA Negative Negative, None Detected Appearance, UA clear QC Media Lot # [id number] Lot# Expiration Date Urine 12/10/2024 9:59 AM EDT Result [facility] Eri Leo MD POINT OF CARE TEST ENTER/EDIT OR DERABLES Final Result * MR Lumbar Spine w/ and w/o Contrast (11/23/2024 1:00 PM EDT) Anatomical Region Laterality Modality Spine, L-spine Magnetic Resonan ce 11/23/2024 1:00 PM EDT Narrative 11/23/2024 3:29 PM EDT [address] [address] Magnetic Resonance Report Signed Patient: Gallo Saini MR#: [id number] : 1970 Acct:[id number] Age/Sex: 54 / M ADM Date: 11/22/24 Loc: .S3 372-[address]: Rosanne ELLER Ordering Physician: Rosanne Jeffery Date of Service: 11/23/24 Procedure(s): MR lumbar spine wo/w con Accession Number(s): [id number] cc: Rosanne Jeffery; Milena Shoemaker MD EXAM: MRI lumbar spine without and with IV contrast Contrast: 10 mL gadolinium based contrast agent TECHNIQUE: Multiplanar multisequence imaging was performed through the lumbar spine without contrast. INDICATION: Severe lower back pain radiating down the right leg, rule out osteomyelitis CONTRAST: 10 mL mL of gadolinium based contrast agent PRIOR: August 29, 2023 FINDINGS: 5 non-rib bearing lumbar segments are assumed for numbering purposes. If level specific intervention is planned, correlate with an x-ray to ensure concordant numbering. Again seen are vertebral hemangiomas within L3, L4, and L5. [place] appearing edema is noted in the deep subcutaneous soft tissues. Left para-aortic collateral vessels are present in the abdomen. The etiology is uncertain on this limited study. The termination of conus medullaris is within normal limits at the level of T12-L1. Without Contrast: T12-L1: There is no disc bulge, herniation, spinal stenosis, or foraminal narrowing. L1-L2: There is no disc bulge, herniation, spinal stenosis, or foraminal narrowing. L2-L3: There is no disc bulge, herniation, spinal stenosis, or foraminal narrowing. L3-L4: There is disc desiccation and mild circumferential broad-based disc bulge. There is mild to moderate right and mild left facet degeneration with trace fluid in the facet joints. There is no spinal stenosis. There is mild to moderate bilateral foraminal narrowing similar to the prior. There is increased signal on fluid sensitive sequences and mild enhancement of the soft tissues interposed between the spinous processes and right of midline in the multifidus muscle measuring 8 mm. L4-L5: Minimal broad-based disc bulge is again noted. There is severe right and moderate to severe left facet degeneration and trace fluid in the facet joints. There is no spinal stenosis. There is stable mild to moderate bilateral foraminal narrowing. L5-S1: There is no disc bulge, herniation, spinal stenosis, or foraminal narrowing. MR/MR lumbar spine wo/w con IMPRESSION: There is a small area of soft tissue hyperenhancement at L3-4 between the spinous processes and right of midline within multifidus muscle. This could be related to infection, inflammation, or trauma. Degenerative changes at L3-4 and L4-5 are stable. Electronically signed by: Vinny Granado MD 11/23/2024 03:26 PM EDT Dictated By: Vinny Granado MD Signed By: <Electronically signed by Vinny Granado MD in OV> 11/23/24 1526 DD/ 1300 TD/TT: 11/23/24 1448 [place] Pinner: Procedure Note Donotuseinterpreter, Image - 11/23/2024 [place] [address] Magnetic Resonance Report Signed Patient: Lali Saini#: [id number] : 1970Acct:[id number] Age/Sex: 54 / MADM Date: 11/22/24 Loc: .S3 372-[address]: Rosanne ELLER Ordering Physician: Rosanne Jeffery Date of Service: 11/23/24 Procedure(s): MR lumbar spine wo/w con Accession Number(s): [id number] cc: Rosanne Jeffery; Milena Shoemaker MD EXAM: MRI lumbar spine without and with IV contrast Contrast: 10 mL gadolinium based contrast agent TECHNIQUE: Multiplanar multisequence imaging was performed through the lumbar spine without contrast. INDICATION: Severe lower back pain radiating down the right leg, rule out osteomyelitis CONTRAST: 10 mL mL of gadolinium based contrast agent PRIOR: August 29, 2023 FINDINGS: 5 non-rib bearing lumbar segments are assumed for numbering purposes. If level specific intervention is planned, correlate with an x-ray to ensure concordant numbering. Again seen are vertebral hemangiomas within L3, L4, and L5. [place] appearing edema is noted in the deep subcutaneous soft tissues. Left para-aortic collateral vessels are present in the abdomen. The etiology is uncertain on this limited study. The termination of conus medullaris is within normal limits at the level of T12-L1. Without Contrast: T12-L1: There is no disc bulge, herniation, spinal stenosis, or foraminal narrowing. L1-L2: There is no disc bulge, herniation, spinal stenosis, or foraminal narrowing. L2-L3: There is no disc bulge, herniation, spinal stenosis, or foraminal narrowing. L3-L4: There is disc desiccation and mild circumferential broad-based disc bulge. There is mild to moderate right and mild left facet degeneration with trace fluid in the facet joints. There is no spinal stenosis. There is mild to moderate bilateral foraminal narrowing similar to the prior. There is increased signal on fluid sensitive sequences and mild enhancement of the soft tissues interposed between the spinous processes and right of midline in the multifidus muscle measuring 8 mm. L4-L5: Minimal broad-based disc bulge is again noted. There is severe right and moderate to severe left facet degeneration and trace fluid in the facet joints. There is no spinal stenosis. There is stable mild to moderate bilateral foraminal narrowing. L5-S1: There is no disc bulge, herniation, spinal stenosis, or foraminal narrowing. MR/MR lumbar spine wo/w con IMPRESSION: There is a small area of soft tissue hyperenhancement at L3-4 between the spinous processes and right of midline within multifidus muscle. This could be related to infection, inflammation, or trauma. Degenerative changes at L3-4 and L4-5 are stable. Electronically signed by: Vinny Granado MD 11/23/2024 03:26 PM EDT Dictated By: Vinny Granado MD Signed By: <Electronically signed by Vinny Granado MD in OV> 11/23/24 1526 DD/ 1300 TD/TT: 11/23/24 1448 [place] Pinner: us [facility] External Provider IMG MRI PROCEDURES Final Result * MR Foot w/ and w/o Contrast Right (11/22/2024 6:19 PM EDT) Anatomical Region Laterality Modality Lower Extremities, Foot Right Magnetic Resonance 11/22/2024 6:19 PM EDT Narrative 11/22/2024 6:21 PM EDT [place] [address] Magnetic Resonance Report Signed Patient: Gallo Saini MR#: [id number] [id number] : 1970 Acct:[id number] Age/Sex: 54 / M ADM Date: 11/22/24 Loc: .S3 372-[address]: Anastasia Cottrell MD Ordering Physician: Anastasia Muniz MD Date of Service: 11/22/24 Procedure(s): MR foot RT wo/w con Accession Number(s): [id number] cc: Anastasia Muniz MD; Milena Shoemaker MD CLINICAL HISTORY: Right 1st toe ulcer, assess for osteomyelitis. Diabetes, hx left 1st toe amputation MR rightfoot with and without gadolinium Comparison: DX/SR - XR FOOT RT MIN 3V - 04/26/24 12:58 EST Findings: There is an ulcer just plantar to the 1st interphalangeal joint. No abscess or soft tissue gas. There is increased fluid signal in the marrow of the 1st distal phalanx on the fluid sensitive sequence with associated enhancement however there is no corresponding decreased signal on T1 images and this is favored to be reactive marrow. The cortex also appears intact on the T1 images. Tenosynovitis of the flexor hallucis longus tendon. Edema in the intermetatarsal soft tissues. No acute fracture. IMPRESSION: Signal characteristics favoring reactive marrow in the 1st distal phalanx however early/developing osteomyelitis is difficult to exclude. This document has been electronically signed by: Venkata Sesay MD on 11/22/2024 18:19:38 Dictated By: Venkata Sesay MD Signed By: <Electronically signed by Venkata Sesay MD in OV> 11/22/24 1820 DD/ 1819 TD/TT: 11/22/241818 [place] Pinner: Procedure Note Donotuseinterpreter, Image - 11/22/[address] [address] Magnetic Resonance Report Signed Patient: Lali Saini#: [id number] : 1970Acct:[id number] Age/Sex: 54 / MADM Date: 11/22/24 Loc: HO.S3 372-[address]: Anastasia Cottrell MD Ordering Physician: Anastasia Muniz MD Date of Service: 11/22/24 Procedure(s): MR foot RT wo/w con Accession Number(s): [id number] cc: Anastasia Muniz MD; Milena Shoemaker MD CLINICAL HISTORY: Right 1st toe ulcer, assess for osteomyelitis. Diabetes,hx left 1st toe amputation MR rightfoot with and without gadolinium Comparison: DX/SR - XR FOOT RT MIN 3V - 04/26/24 12:58 EST Findings: There is an ulcer just plantar to the 1st interphalangeal joint. No abscess or soft tissue gas. There is increased fluid signal in the marrow of the 1st distal phalanx on the fluid sensitive sequence with associated enhancement however there is no corresponding decreased signal on T1 images and this is favored to be reactive marrow. The cortex also appears intact on the T1 images. Tenosynovitis of the flexor hallucis longus tendon. Edema in the intermetatarsal soft tissues. No acute fracture. IMPRESSION: Signal characteristics favoring reactive marrow in the 1st distal phalanx however early/developing osteomyelitis is difficult to exclude. This document has been electronically signed by: Venkata Sesay MD on 11/22/2024 18:19:38 Dictated By: Venkata Sesay MD Signed By: <Electronically signed by Venkata Sesay MD in OV> 11/22/241819 DD/ 18 TD/TT: 11/22/241818 [place] Pinner: [facility] External Provider IMG MRI PROCEDURES Final Result * (ABNORMAL) Urinalysis, Complete, with Reflex to Culture (11/22/2024 1:27 PM EDT) Color Urine Yellow [facility] Appearance Urine Clear [facility] PH 5.5 5.0 - 9.0 [facility] Glucose Urine UA >=1000(A) Negative mg/dL [facility] Urine Blood Negative Negative [facility] Specific [place] - Urine >=1.030(H) 1.005 - 1.025 [facility] Urine Protein 300 (3+)(A) Neg-Trace mg/dL [facility] Urine Ketones Negative Negative mg/dL [facility] Nitrite Urine Negative Negative [facility] Leukocyte Esterase Urine Negative Negative [facility] 11/22/2024 1:27 PM EDT 11/22/2024 1:30 PM EDT Narrative [facility] - 11/22/2024 1:35 PM EDT [id number], [employer] us Generic External Data Provider LAB URINE ORDERAB LES Final Result Performing Organization Address City/State/[facility] Co de Phone Number [facility] [address] [place] [phone] * CT Abdomen Pelvis w/ Contrast (11/22/2024 11:06 AM EDT) Anatomical Region Laterality Modality Body, Pelvis, Abdomen Computed T omography 11/22/2024 11:0 6 AM EDT Narrative 11/22/2024 12:49 PM EDT [address] [address] [address] Scan Report Signed Patient: Gallo Saini MR#: [id number] : 1970 Acct:[id number] Age/Sex: 54 / M ADM Date: 11/22/24 Loc: .ED Attending Dr: Ordering Physician: Tammy Dinh DO Date of Service: 11/22/24 Procedure(s): CT abdomen pelvis w IV con Accession Number(s): [id number] cc: Tammy Dinh DO; Milena Shoemaker MD Report Number: [id number]: Total DLP = 892.00 mGy-cm EXAMINATION: CT ABDOMEN PELVIS WITH IV CONTRAST HISTORY: LLQ pain COMPARISON: Correlation is made with a renal ultrasound 08/22/2024. TECHNIQUE: CT scan of the abdomen and pelvis was performed following administration of 85 mL Omnipaque 350 using standard departmental protocol. Coronal and sagittal reformatted images were generated and reviewed. Oral contrast material was not administered at the request of the referring physician. This CT exam was performed with one or more of the following dose reduction techniques: automated exposure control, adjustment of the mA and/or kV according to patient size, use of iterative reconstruction technique. DLP: A 92 mGy-cm FINDINGS: LOWER CHEST: The visualized lung bases are clear. There is no pleural effusion. CARDIOVASCULATURE: The heart is normal in size. There is no pericardial effusion. LIVER: The liver is normal in size and contour. No liver mass is identified. The portal vein is patent. GALLBLADDER / BILE DUCTS: There is cholelithiasis.. There is no intra or extrahepatic biliary ductal dilatation. SPLEEN: The spleen is normal in size. No focal splenic lesion is identified. PANCREAS: The pancreas is unremarkable in appearance. ADRENAL GLANDS: Within normal limits. KIDNEYS/RETROPERITONEUM: No renal calculi are identified. There is no hydronephrosis. There is a 1.7 cm solid mass at the posterior aspect of the upper pole of the right kidney (series 3 image 44, and series 6 image 99). LYMPH NODES: No abdominal or pelvic lymphadenopathy. VASCULATURE: The abdominal aorta is normal in caliber. MESENTERY/PERITONEUM: No free fluid. No masses. There is no free intraperitoneal gas. STOMACH: The stomach is collapsed, limiting evaluation. SMALL BOWEL: The small bowel is normal in caliber. COLON: There is a moderate amount of stool throughout the colon. APPENDIX: Normal. URINARY BLADDER/PELVIC ORGANS: The urinary bladder is unremarkable. The prostate is normal in size. BONES / SOFT TISSUES: No suspicious bony or soft tissue abnormalities. CT/CT abdomen pelvis w IV con IMPRESSION: 1. 1.7 cm solid mass at the posterior aspect of the upper pole of the right kidney. Urologic consultation is recommended. 2. Moderate amount of stool throughout the colon. Electronically signed by: Chuck Radford MD 11/22/2024 12:46 PM EDT RP Dictated By: Chuck Radford MD Signed By: <Electronically signed by Chuck Radford MD in OV> 11/22/24 1246 DD/ 1106 TD/TT: 11/22/24 1235 [place] Pinner: Procedure Note Donotuseinterpreter, Image - 11/22/[address] [address] [address] Scan Report Signed Patient: Gallo SainiMR#: [id number] : 1970Acct:[id number] Age/Sex: 54 / MADM Date: 11/22/24 Loc: .ED Attending Dr: Ordering Physician: Tammy Dinh DO Date of Service: 11/22/24 Procedure(s): CT abdomen pelvis w IV con Accession Number(s): [id number] cc: Tammy Dinh DO; Milena Shoemaker MD Report Number: [id number]: Total DLP = 892.00 mGy-cm EXAMINATION: CT ABDOMEN PELVIS WITH IV CONTRAST HISTORY: LLQ pain COMPARISON: Correlation is made with a renal ultrasound 08/22/2024. TECHNIQUE: CT scan of the abdomen and pelvis was performed following administration of 85 mL Omnipaque 350 using standard departmental protocol. Coronal and sagittal reformatted images were generated and reviewed. Oral contrast material was not administered at the request of the referring physician. This CT exam was performed with one or more of the following dose reduction techniques: automated exposure control, adjustment of the mA and/or kV according to patient size, use of iterative reconstruction technique. DLP: A 92 mGy-cm FINDINGS: LOWER CHEST: The visualized lung bases are clear. There is no pleural effusion. CARDIOVASCULATURE: The heart is normal in size. There is no pericardial effusion. LIVER: The liver is normal in size and contour. No liver mass is identified. The portal vein is patent. GALLBLADDER / BILE DUCTS: There is cholelithiasis.. There is no intra or extrahepatic biliary ductal dilatation. SPLEEN: The spleen is normal in size. No focal splenic lesion is identified. PANCREAS: The pancreas is unremarkable in appearance. ADRENAL GLANDS: Within normal limits. KIDNEYS/RETROPERITONEUM: No renal calculi are identified. There is no hydronephrosis. There is a 1.7 cm solid mass at the posterior aspect of the upper pole of the right kidney (series 3 image 44, and series 6 image 99). LYMPH NODES: No abdominal or pelvic lymphadenopathy. VASCULATURE: The abdominal aorta is normal in caliber. MESENTERY/PERITONEUM: No free fluid. No masses. There is no free intraperitoneal gas. STOMACH: The stomach is collapsed, limiting evaluation. SMALL BOWEL: The small bowel is normal in caliber. COLON: There is a moderate amount of stool throughout the colon. APPENDIX: Normal. URINARY BLADDER/PELVIC ORGANS: The urinary bladder is unremarkable. The prostate is normal in size. BONES / SOFT TISSUES: No suspicious bony or soft tissue abnormalities. CT/CT abdomen pelvis w IV con IMPRESSION: 1. 1.7 cm solid mass at the posterior aspect of the upper pole of the right kidney. Urologic consultation is recommended. 2. Moderate amount of stool throughout the colon. Electronically signed by: Chuck Radford MD 11/22/2024 12:46 PM EDT Dictated By: Chuck Radford MD Signed By: <Electronically signed by Chuck Radford MD in OV> 11/22/24 1246 DD/ 1106 TD/TT: 11/22/24 1235 [place] Pinner: [facility] External Provider IMG CT PROCEDURES Edited Result - Final * XR Toes 2+ Views Right (11/22/2024 10:25 AM EDT) Anatomical Region Laterality Modality Lower Extremities, Toes Left Radiogra phic Imaging 11/22/2024 10:2 5 AM EDT Narrative 11/22/2024 11:49 AM EDT [address] [address] XRay Report Signed Patient: Gallo Saini MR#: [id number] : 1970 Acct:[id number] Age/Sex: 54 / M ADM Date: 11/22/24 Loc: HO.ED Attending Dr: Ordering Physician: Tammy Dinh DO Date of Service: 11/22/24 Procedure(s): XR toe RT min 2V Accession Number(s): [id number] cc: Tammy Dinh DO; Mielna Shoemaker MD EXAMINATION: XR TOES, RIGHT CLINICAL INFORMATION: deep wound great toe COMPARISON: April 26 2024 TECHNIQUE: 3 views of the right toes were obtained. FINDINGS: There is generalized soft tissue swelling involving the great toe and medial midfoot. Mild marginal osteophytes are evident involving the first MTP joint. Stable chronic changes are present in the midfoot with diffuse sclerosis and patchy osteopenia in the juxta articular region involving cuneiform bones and navicular bone. The joints are narrowed and slightly irregular. There is a bony fragment along the dorsal medial navicular, chronic XR/XR toe RT min 2V IMPRESSION: There is soft tissue swelling of the great toe extending into the medial midfoot. If there is skin ulceration and concern for osteomyelitis, MRI is the most sensitive modality. Increasing degenerative change in the central and medial midfoot with extensive sclerosis and subarticular degenerative cystic change and osteopenia. There is also evidence for fragmentation/debris. This could be related to diabetic neuropathy. Electronically signed by: Vinny Granado MD 11/22/2024 11:46 AM EDT Dictated By: Vinny Granado MD Signed By: <Electronically signed by Vinny Granado MD in OV> 11/22/24 1146 DD/ 1025 TD/TT: 11/22/24 1138 [place] Pinner: Procedure Note Donotuseinterpreter, Image - 11/22/[address] [address] XRay Report Signed Patient: Gallo SainiMR#: [id number] : 1970Acct:[id number] Age/Sex: 54 / MADM Date: 11/22/24 Loc: HO.ED Attending Dr: Ordering Physician: Tammy Dinh DO Date of Service: 11/22/24 Procedure(s): XR toe RT min 2V Accession Number(s): [id number] cc: Tammy Dinh DO; Milena Shoemaker MD EXAMINATION: XR TOES, RIGHT CLINICAL INFORMATION: deep wound great toe COMPARISON: April 26 2024 TECHNIQUE: 3 views of the right toes were obtained. FINDINGS: There is generalized soft tissue swelling involving the great toe and medial midfoot. Mild marginal osteophytes are evident involving the first MTP joint. Stable chronic changes are present in the midfoot with diffuse sclerosis and patchy osteopenia in the juxta articular region involving cuneiform bones and navicular bone. The joints are narrowed and slightly irregular. There is a bony fragment along the dorsal medial navicular, chronic XR/XR toe RT min 2V IMPRESSION: There is soft tissue swelling of the great toe extending into the medial midfoot. If there is skin ulceration and concern for osteomyelitis, MRI is the most sensitive modality. Increasing degenerative change in the central and medial midfoot with extensive sclerosis and subarticular degenerative cystic change and osteopenia. There is also evidence for fragmentation/debris. This could be related to diabetic neuropathy. Electronically signed by: Vinny Granado MD 11/22/2024 11:46 AM EDT Dictated By: Vinny Granado MD Signed By: <Electronically signed by Vinny Granado MD in OV> 11/22/24 1146 DD/ 1025 TD/TT: 11/22/24 1138 [place] Pinner: [facility] External Provider IMG XR PROCEDURES Edited Result - Final * XR Chest 1 View (11/22/2024 10:23 AM EDT) Anatomical Region Laterality Modality Chest Radiographic Loida ging 11/22/2024 10:2 3 AM EDT Narrative 11/22/2024 11:50 AM EDT [address] [address] XRay Report Signed Patient: Gallo Saini MR#: [id number] : 1970 Acct:[id number] Age/Sex: 54 / M ADM Date: 11/22/24 Loc: HO.ED Attending Dr: Ordering Physician: Generic ED Physician Date of Service: 11/22/24 Procedure(s): XR chest 1V Accession Number(s): [id number] cc: Generic ED Physician; Milena Shoemaker MD EXAMINATION: XR CHEST CLINICAL INFORMATION: coughing, asthma COMPARISON: January 02, 2024 TECHNIQUE: Frontal view of the chest was obtained. FINDINGS: No significant abnormality is noted involving the heart, lungs, mediastinum, bony thorax or soft tissues. XR/XR chest 1V IMPRESSION: No acute disease Electronically signed by: Vinny Granado MD 11/22/2024 11:47 AM EDT RP Dictated By: Vinny Granado MD Signed By: <Electronically signed by Vinny Granado MD in OV> 11/22/24 1147 DD/ 1023 TD/TT: 11/22/24 1138 [place] Pinner: Procedure Note Donotuseinterpreter, Image - 11/22/2024 [place] [address] XRay Report Signed Patient: Gallo SainiMR#: [id number] : 1970Acct:[id number] Age/Sex: 54 / MADM Date: 11/22/24 Loc: .ED Attending Dr: Ordering Physician: Generic ED Physician Date of Service: 11/22/24 Procedure(s): XR chest 1V Accession Number(s): [id number] cc: Generic ED Physician; Milena Shoemaker MD EXAMINATION: XR CHEST CLINICAL INFORMATION: coughing, asthma COMPARISON: January 02, 2024 TECHNIQUE: Frontal view of the chest was obtained. FINDINGS: No significant abnormality is noted involving the heart, lungs, mediastinum, bony thorax or soft tissues. XR/XR chest 1V IMPRESSION: No acute disease Electronically signed by: Vinny Granado MD 11/22/2024 11:47 AM EDT RP Dictated By: Vinny Granado MD Signed By: <Electronically signed by Vinny Granado MD in OV> 11/22/24 1147 DD/ 1023 TD/TT: 11/22/24 1138 [place] Pinner: us [facility] External Provider IMG XR PROCEDURES Edited Result - Final * Creatinine, Random Urine (06/25/2024 3:06 PM EST) Creatinine, Urine 78.85 mg/dL [facility] 06/25/2024 3:06 PM EST 06/25/2024 3:41 PM EST Generic External Data Provider LAB URINE ORDERAB LES Final Result [facility] [address] [place] [phone] * Lipid Panel, Standard (07/16/2022 10:33 AM EST) Cholesterol, Total 115 <200 mg/dL [facility] [place] HDL Cholesterol 42 > OR = 40 mg/dL [facility] [place] Triglycerides 106 <150 mg/dL [facility] [place] LDL Cholesterol 54 mg/dL (calc) [facility] [place] Comment: Reference range: <100 Desirable range <100 mg/dL for primary prevention; <70 mg/dL for patients with CHD or diabetic patients with > or = 2 CHD risk factors. LDL-C is now calculated using the Alvino-Pako calculation, which is a validated novel method providing better accuracy than the Friedewald equation in the estimation of LDL-C. Alvino SS et al. KIRSTEN. 2013;310(19): 3809-3495 (http://education.about.me/faq/TLW216) Chol/HDLC Ratio 2.7 <5.0 (calc) [facility] [place] Non-HDL Cholesterol 73 <130 mg/dL (calc) [facility] [place] Comment: For patients with diabetes plus 1 [...] BLOOD ORDERABLES Final Re sult [facility] [address] [facility], [facility], [place] [address] [facility] [address] [facility], ([address]) [place] [address] from Last 3 Months or Most Recently Relevant to Health Maintenance Insurance MEDICARE Member Subscriber Plan / Payer (Ef fective 2023-Present) Name:Gallo Saini Member ID:[id number] Relation to Subscriber:Self Name:Yeny Gallo Subscriber ID:[id number] Payer ID:STATE Group ID:Not on file Type:Medicare Address: [facility] [address] [address] [facility] Care Teams 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
--- OUTSIDE RECORDS SUMMARY | 2025-02-19 20:25 | XMS_ITS | Encounter Summary ---
Author Organization [employer] Address [address] [facility] 7t [place] [address] Care Team Providers Care Activated Sludge Operator Name Role Phone Milena Shoemaker MD Primary Care Provider [phone] Reason for Visit * Reason Comments Med Refill Encounter Details Date Type Department Care Team ([facility] st Contact Info) Description 12/10/2023 Refill [facility] [address] [place], [place] [phone] Milena Shoemaker MD [address] [place] [address] Social History Tobacco Use Types Packs/Day Years [...] Description 03/07/2025 10:00 AM EDT Clinical Support [facility] [address] [place] [address] Luma Dalton RN [address] [place] [address] 03/21/2025 11:30 AM EDT Office Visit [facility] [address] [place] [address] Milena Shoeamker MD [address] [place] [address] documented as of this encounter Visit Diagnoses Not on filedocumented in this encounter Additional Health Concerns Assessment Noted Time PHQ-9 Depression Total Score: 7 07/15/19 23 1:17 PM EST documented as of this encounter Care Teams Activated Sludge Operator Relationship Specialty Start Date End Date Milena Shoemaker MD [address] [place] [id number] PCP - General Family Medicine 08/12/22 Maria G Sellers CNP Psychiatrist 02/23/23 documented as of this encounter
--- OUTSIDE RECORDS SUMMARY | 2025-02-19 20:25 | XMS_ITS | Encounter Summary ---
Author Organization [employer] Address [address] [facility] 7 [place] [address] Care Team Providers Care Blogs Manager Name Role Phone Milena Shoemaker MD Primary Care Provider [phone] Encounter Details Date Type Department Care Team ([facility] Contact Info) Description 09/18/2024 Orders Only [facility] & [facility]EDS [address] [place], [place] [phone] Johanna Camargo MD [address] [place] [address] Social History Tobacco Use Types Packs/Day Years [...] t he electric, gas, oil or water [employer] threatened to shut off services in your [...] [facility] [address] [place] [address] Luma Dalton RN [address] [place] [address] 03/21/2025 11:30 AM EDT Office Visit [facility] [address] [place] [address] Milena Shoemaker MD [address] [place] [address] documented as of this encounter Visit Diagnoses Not on filedocumented in this encounter Additional Health Concerns Assessment Noted Time PHQ-9 Depression Total Score: 7 07/15/19 23 1:17 PM EST documented as of this encounter Care Teams Blogs Manager Relationship Specialty Start Date End Date Milena Shoemaker MD [address] [place] [address] PCP - General Family Medicine 08/12/22 Maria G Sellers CNP Psychiatrist 02/23/23 documented as of this encounter
--- OUTSIDE RECORDS SUMMARY | 2025-02-19 20:25 | XMS_ITS | Encounter Summary ---
Author Organization [employer] Address [address] [facility] 7 [place] [address] Care Team Providers Care Applications Manager Name Role Phone Milena Shoemaker MD Primary Care Provider [phone] Reason for Visit * Reason Onset Date Comments Med Refill 10/15/2024 Encounter Details Date Type Department Care Team ([facility] Contact Info) Description 10/15/2024 Refill [facility] & PEDS [address] [place], [place] [phone] Sowmya Duron FNP [address] [place] [address] Asthma, unspecified asthma severity, unspecified whether complicated, [...] [facility] MED & PED[facility] [address] [place] [address] Luma Dalton, RN [address] [place] [address] 03/21/2025 11:30 AM EDT Office Visit [facility] [address] [place] [address] Milena Shoemaker MD [address] [place] [address] documented as of this encounter Visit Diagnoses Diagnosis Asthma, unspecified asthma severity, unspecified whether complicated, unspecified whether persistent documented in this encounter Additional Health Concerns Assessment Noted Time PHQ-9 Depression Total Score: 7 07/15/19 23 1:17 PM EST documented as of this encounter Care Teams Applications Manager Relationship Specialty Start Date End Date Milena Shoemaker MD [address] [place] [address] PCP - General Family Medicine 08/12/22 Maria G Sellers CNP Psychiatrist 02/23/23 documented as of this encounter
--- OUTSIDE RECORDS SUMMARY | 2025-02-19 20:25 | XMS_ITS | Encounter Summary ---
Author Organization [employer] Address [address] [facility] 7 [place] [address] Care Team Providers Care Aircraft Log Clerk Name Role Phone Milena Shoemaker MD Primary Care Provider [phone] Reason for Visit * Reason Onset Date Comments Med Refill 08/15/2024 Encounter Details Date Type Department Care Team ([facility] Contact Info) Description 08/15/2024 Refill [facility]EDS [address] [place], [place] [phone] Avila Cee MD [address] [place] [address] Chronic midline low back pain without sciatica [...] [facility] MED & PEDS [address] [place] [address] Luma Dalton RN [address] [place] [address] 03/21/2025 11:30 AM EDT Office Visit [facility] MED [facility] P[facility]S [address] [place] [address] Milena Shoemaker MD [address] [place] [address] documented as of this encounter Visit Diagnoses Diagnosis Chronic midline low back pain without sciatica documented in this encounter Additional Health Concerns Assessment Noted Time PHQ-9 Depression Total Score: 7 07/15/19 23 1:17 PM EST documented as of this encounter Care Teams Aircraft Log Clerk Relationship Specialty Start Date End Date Milena Shoemaker MD [address] [place] [id number] PCP - General Family Medicine 08/12/22 Maria G Sellers CNP Psychiatrist 02/23/23 documented as of this encounter
--- OUTSIDE RECORDS SUMMARY | 2025-02-19 20:25 | XMS_ITS | Encounter Summary ---
Author Organization [facility] Address [address] [place] [address] Phone Care Team Providers Care Relay Worker Name Role Phone Milena Shoemaker MD Primary Care Provider [phone] Encounter Details Date Type Department Care Team (Late st Contact Info) Description 11/05/2022 Documentation Only [facility] [address] [place] [address] Milena Shoemaker MD [address] [place], [place] [phone] Social History Tobacco Use Types Packs/Day Years [...] on filedocumented in this encounter Care Teams Relay Worker Relationship Specialty Start Date End Date Milena Shoemaker MD [address] [place], [place] [phone] PCP - General Family Medicine 11/05/22 documented as of this encounter
== END 2025-02-19 20:27 | disposition left against medical advice (07) ==
PROVIDERS: Emergency Provider Emergency Medicine
DX: S61.411A Laceration without foreign body of right hand, initial encounter (principal); R07.81 Pleurodynia; R07.89 Other chest pain; R10.11 Right upper quadrant pain; E11.9 Type 2 diabetes mellitus without complications; F17.210 Nicotine dependence, cigarettes, uncomplicated; Y93.9 Activity, unspecified; X50.1XXA Overexertion from prolonged static or awkward postures, initial encounter; Y92.9 Unspecified place or not applicable; Y99.8 Other external cause status; Z79.899 Other long term (current) drug therapy; Z79.4 Long term (current) use of insulin
CPT/HCPCS: 76604; 76705; 93308; 99282; 99284

== ENCOUNTER 2025-03-16 00:06 | Inpatient (IN) | payer MEDICARE, MEDICAID, SELFPAY ==
[2025-03-16] VITALS (9 sets, daily range): BP systolic 118–166; BP diastolic 60–88; PULSE 61–80; RESP 16–20; TEMP 36.3–36.9; O2SAT 95–97; BMI 39.9; BMI 39.3
--- NOTE | ~2025-03-16 | MR_ITS ---
CLINICAL HISTORY: rule out spinal abscess, severe pain with hx of th MR lumbar spine with and without gadolinium Comparison: None Findings: No scoliosis or spondylolisthesis. No acute fracture or pathologic bone lesion. Cauda equina and conus medullaris within normal limits. Lesions in the L3 and L4 vertebral bodies, possible hemangiomata. There is no imaging findings to suggest discitis or osteomyelitis. There are no focal areas of increased or decreased enhancement and no collections to suggest developing abscess. No significant degenerative change. No stenoses. Paraspinous musculature intact. IMPRESSION: No acute findings. This document has been electronically signed by: Robe Wilson MD on 03/16/2025 14:40:21
--- NOTE | ~2025-03-16 | CT_ITS ---
CLINICAL HISTORY: previous mass R kidney, re evaluate CT abdomen and pelvis without contrast Comparison: CT/SR - CT ABDOMEN PELVIS WITH IV CONTRAST - 11/22/24 12:06 EDT Findings: No nephrolithiasis or hydronephrosis. Bilateral perinephric stranding. Evaluation for a renal mass is limited without contrast, however when compared with the prior study which was performed with contrast right renal lesion is again seen measuring 1.4 cm (series 5, image 65 on the current study and series 5, image 72 on the prior study ). No bladder stone. No consolidation at the lung bases. Cholelithiasis. No gallbladder wall thickening or pericholecystic fluid.. The other solid organs are normal. No bowel wall thickening or dilation. A normal appendix is identified. No aneurysm. Mild calcified atherosclerotic disease of the abdominal aorta. Severe calcified atherosclerotic disease of small caliber vessels in the pelvis. No lymphadenopathy. No ascites. No acute fracture. Impression: Evaluation is limited without contrast. Within that limitation, no significant interval change to the right renal mass, presumed malignant. Follow up with urology is recommended. This document has been electronically signed by: Pearl Scott MD on 03/17/2025 15:44:32
--- NOTE | ~2025-03-16 | MR_ITS ---
CLINICAL HISTORY: suspect OM worsening wound MR right foot with and without gadolinium Comparison: 03/16/2025, 11/22/2024 Findings: No acute fracture. There is focal medial cortical loss with marrow signal in the distal phalanx of the great toe, possible osteomyelitis. There is diffuse subcutaneous edema in the great toe possible cellulitis. There is fluid in the flexor and extensor tendons, possible tenosynovitis. There are no focal masses or collections to suggest abscess. There are degenerative changes in the metatarsophalangeal and interphalangeal joints with small joint effusions. There are no other imaging findings to suggest septic arthritis, with no associated articular enhancement. Regional ligamentous and tendinous structures are otherwise intact IMPRESSION: 1. Findings suggesting great toe distal phalangeal osteomyelitis and overlying great toe cellulitis. 2. Great toe flexor and extensor tendon sheath fluid, possible tenosynovitis. Clinical follow-up recommended. 3. Great toe metatarsophalangeal and IP joint degenerative changes with nonspecific joint effusions. This document has been electronically signed by: Robe Wilson MD on 03/16/2025 14:52:19
--- NOTE | ~2025-03-16 | US_ITS ---
CLINICAL HISTORY: rule out DVT, edema, posiitve homans --- Additional Notes or Special Instructions: Talked to provider, not urgent, can be done at 0700. [id number] Venous duplex ultrasound right lower extremity Comparison: None provided Findings: The visualized deep veins are fully compressible with normal Doppler color flow and spectral tracings. No popliteal cyst. Posterior tibial and peroneal veins not well seen secondary to significant calf edema. IMPRESSION: 1. Negative for right lower extremity deep vein thrombosis. This document has been electronically signed by: Katie Fernandez MD on 03/16/2025 08:21:59
--- NOTE | ~2025-03-16 | XR_ITS ---
CLINICAL HISTORY: right great toe wound diabetic --- Additional Notes or Special Instructions: r o osteo 3 view right foot Comparison: DX/SR - XR FOOT RT MIN 3V - 04/26/2024 12:58 PM EST Findings: Talus and subtalar articulations are normal. Calcaneus is normal. Moderate talonavicular degenerative change . Severe joint space narrowing between the navicular and cuneiforms with erosive changes. There is soft tissue stranding. Calcaneocuboid alignment is normal. Metatarsophalangeal articulations are normally aligned. There is diffuse swelling of the 1st digit. Irregular changes at the distal phalanx tuft may represent sequelae of infection. No abnormal soft tissue calcification. Remainder of phalanges and metatarsals are normal. IMPRESSION: 1. First digit distal tuft irregularity may represent sequelae of infection or osteomyelitis. 2. Severe degenerative changes at the navicular with erosions and marginal osteophytes. This may represent degenerative change, inflammation, or sequelae of infection. This document has been electronically signed by: Jamar Wilhelm III, MD PHD on 03/16/2025 02:35:27
--- NOTE | 2025-03-16 00:39 | ED_ITS ---
HPI - Extremity Problem General Chief complaint: Extremity Problem Stated complaint: Infected R Toe , Hyperglycemic Time Seen by Provider: 03/16/25 00:15 Source: patient and EMS Mode of arrival: EMS Limitations: no limitations History of Present Illness ED Provider: CONCHA SINGER PA-C HPI Narrative: 54 year old male with pmhx significant for asthma, T2DM, HTN, CKD presents to the ED today via EMS for evaluation of wound to right great toe. Reports the area began as a sore that he attempted to sapna on his own. Reports pain/swelling has been worsening. Has been attempting to dress the wound on his own. Reports taking 6 pills of left over Augmentin without improvement. Admits to hx of left great toe amputation. Reports symptoms feel similar. Denies fever, chills. Also reports his glucose monitor has been reading high over the last week. Admits to nausea and vomiting x1 week, no vomiting today. States the only think he can tolerate is OJ and milk. He admits he has been out of his insulin x2 days. Denies abdominal pain. Related Data Home Medications ?Medication ?Instructions ?Recorded ?Confirmed albuterol sulfate 90 mcg/actuation 2 puff inhalation Q 4H PRN Wheezing 08/15/23 03/16/25 aerosol inhaler (Ventolin HFA) atorvastatin 80 mg tablet 80 mg PO BEDTIME 08/15/23 baclofen 10 mg tablet 10 mg PO TID 08/15/23 cetirizine 10 mg tablet 10 mg PO DAILY 08/15/2310/05 chlorthalidone 50 mg tablet 50 mg PO DAILY 08/15/23 empagliflozin 25 mg tablet 25 mg PO DAILY 08/15/2310/05 (Jardiance) epinephrine 0.3 mg/0.3 mL 0.3 mg IM DIRECTED PRN Al lergic 08/15/23 03/16/25 injection, auto-injector Reaction fluticasone propionate 50 1 spray intranasal BID PRN A llergy 08/15/23 03/16/25 mcg/actuation nasal Symptoms spray,suspension gabapentin 800 mg tablet 800 mg PO TID 08/15/2303/16 losartan 100 mg tablet 100 mg PO DAILY 08/15/2310/05 magnesium oxide 400 mg (241.3 mg 400 mg PO DAILY 08/1403/16/25 magnesium) tablet oxycodone 5 mg tablet 5 mg PO Q6H PRN severe pain 08/15/23 03/16/25 tamsulosin 0.4 mg capsule 0.4 mg PO DAILY 08/15/2310/05 acetaminophen 650 mg 650 mg PO Q8H PRN pain 01/0103/16/25 tablet,extended release hydralazine 100 mg tablet 100 mg PO TID 06/25/2403/16 labetalol 300 mg tablet 300 mg PO BID 06/25/2403/16 ondansetron HCl 4 mg tablet 4 mg PO Q8H PRN Nausea And Vomiting 06/25/24 03/16/25 clotrimazole-betamethasone 1 1 appl topical BID PRN Ra sh 11/22/24 03/16/25 %-0.05 % topical cream insulin aspart U-100 100 unit/mL 10 unit subcut TIDAC 11/22/24 03/16/25 subcutaneous solution (Novolog U-100 Insulin aspart) polyethylene glycol 3350 17 gram 17 g PO DAILY PRN Con stipation 03/16/25 03/16/25 oral powder packet spironolactone 25 mg tablet 25 mg PO DAILY 03/16/25 tirzepatide 2.5 mg/0.5 mL 2.5 mg subcut TH 03/16/25 subcutaneous pen injector (Leonardo) Previous Rx's ?Medication ?Instructions ?Recorded amlodipine 5 mg tablet 5 mg PO DAILY #90 tabs 06/25 docusate sodium 100 mg capsule 100 mg PO BID 90 days # 180 caps 11/25/24 Allergies Allergy/AdvReac Type Severity Reaction Status Date / Time coconut Allergy Rash Verified 03/16/25 00:24 naproxen (From NAPROSYN) AdvReac Severe STOMACH Verified 03/16/25 00:24 UPSET cefepime AdvReac Intermediate Rash Verified 03/16/25 00:24 lisinopril (LISINOPRIL) AdvReac Mild COUGH Verified 03/16/25 00:24 vancomycin AdvReac Vomiting Verified 03/16/25 00:24 SEAFOOD Allergy Unknown ANAPHYLAXIS Uncoded 03/16/25 00:24 Review of Systems 2 Review of Systems: Yes all other systems are reviewed and are negative [facility] Past Medical History Attestation statement: The following information was validated with the patient. Source: old records reviewed and nursing notes reviewed Medical History (Updated 03/16/25 @ 17:30 by DAPHNIE Ballard) Amputation of left great toe 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 lumbar spine Amputation toe (~08/2023) Ulcer of great toe Asthma Severe obesity Mood disorder MAURI (obstructive sleep apnea) Type 2 diabetes mellitus HLD (hyperlipidemia) HTN (hypertension) Social History Social History Household Members: Children Housing: Apartment Do you presently have visiting nurse or other home services: No Alcohol intake: never 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 Tobacco Use Status: Current everyday Tobacco user Tobacco use type: Cigarette Cigarette Packs Per Day: 20 Cigarettes Per Day: 400.0 e-Cigarette/Vaping Use: Never Used Second Hand Smoke Exposure: No Substance Use Type: Marijuana Advance Directives Date on File: 08/30/23 service: No Physical Exam 2 Vital Signs: Vital Signs: Last Vital Signs Temp 97.5 F 03/16/25 11:28 Pulse 61 03/16/25 11:28 Resp 16 03/16/25 11:28 BP 137/72 03/16/25 15:24 Pulse Ox 96 03/16/25 11:28 O2 Del Method Room Air 03/16/25 11:28 BMI result Body Mass Index 39.9 vital signs stable, afebrile General: NAD, no fruity odor to breath Skin: Warm, dry, intact. No rashes or lesions. Head: Normocephalic, atraumatic. EENT: Hearing is intact b/l. Conjunctiva clear. Sclera is anicteric. PERRLA. EOM intact. Moist mucous membranes.? Cardiac: Chest wall symmetric. RRR Lungs: Normal respiratory effort without accessory muscle use. CTA bilaterally Back: No midline spinous or paraspinal tenderness. No step off deformity. Ext: +see photo of right great toe below. open ulceration to plantar aspect of right great toe with associated swelling extending down to medial food. erythematous. areas of macerated skin to right great toe. ttp. Neuro: AOx3. Normal speech. Ambulating with steady gait. Course Course Course Narrative: 214 -- No leukocytosis. normocytic anemia, h&h stable when compared to priors. elevated inflammatory markers with ESR 84, CRP 12.15. Random glucose elevated to 678, no anion gap. Serum sodium 127, corrected 141. Urine showing trace ketones. No urinary tract infection. ABG showing pH 7.45, otherwise wnl. lactic wnl. blood cultures sent. > treated with 2L normal saline and 10 units insulin. low suspicion for DKA, likely hyperglycemic secondary to infection > Zosyn + vancomycin ordered for suspected osteomyelitis 0230 -- repeat poc glucose improved to 340. spoke w/ hospitalist dr. mariee who has accepted patient admission to medicine for IV abx, suspected osteomyelitis. xrs still pending. he is stable at this time. sign out given to my colleague saundra gardner. Medications Administered Generic Name Dose Route Start Last Admin Trade Name Freq PRN Reason Stop Dose Admin Amlodipine Besylate 5 mg 03/16/25 15:00 03/16/25 15:18 Amlodipine Besylate 5 Mg Tablet PO 5 mg DAILY RANDALL Administration Protocol Baclofen 10 mg 03/16/25 15:00 03/16/25 15:18 Baclofen 10 Mg Tablet PO 10 mg TID RANDALL Administration Calcium Carbonate 750 mg 03/16/25 02:55 03/16/25 12:14 Calcium Carbonate 750 Mg Tab.Chew PO 750 mg Q4H PRN Administration Heartburn Docusate Sodium 100 mg 03/16/25 15:00 03/16/25 15:18 Docusate Sodium 100 Mg Capsule PO 100 mg BID RANDALL Administration Empagliflozin 25 mg 03/16/25 15:00 03/16/25 15:18 Empagliflozin 25 Mg Tablet PO 25 mg DAILY RANDALL Administration Enoxaparin Sodium 40 mg 03/16/25 02:45 03/16/25 03:37 Enoxaparin Sodium 40 Mg/0.4 Ml Syringe SUBCUT 40 mg Q24H RANDALL Administration Gabapentin 800 mg 03/16/25 15:00 03/16/25 15:18 Gabapentin 400 Mg Capsule PO 800 mg TID RANDALL Administration Hydralazine HCl 100 mg 03/16/25 15:00 03/16/25 15:18 Hydralazine Hcl 50 Mg Tablet PO 100 mg TID RANDALL Administration Protocol Hydromorphone HCl 1 mg 03/16/25 04:01 03/16/25 15:19 Hydromorphone Hcl 1 Mg/Ml Syringe IVPUSH 1 mg Q3H PRN Administration Pain, Severe (Pain Scale 7-10) Protocol Sodium Chloride 1,000 mls @ 100 mls/hr 03/16/25 02:45 03/16/25 11:51 Ns IVCONT 100 mls/hr .Q10H RANDALL Administration Piperacillin Sod/Tazobactam 50 mls @ 100 mls/hr 03/16/25 08:30 03/16/25 14:52 Sod 3.375 gm/ Sodium Chloride IV Infused Q6H RANDALL Infusion Insulin Human Lispro 0 unit 03/16/25 07:30 03/16/25 17:01 Insulin Lispro 100 Unit/Ml 3 Ml Vial SUBCUT 6 unit QIDACHS [facility] Administration Protocol Loratadine 10 mg 03/16/25 15:00 03/16/25 15:18 Loratadine 10 Mg Tablet PO 10 mg DAILY RANDALL Administration Losartan Potassium 100 mg 03/16/25 15:00 03/16/25 15:18 Losartan Potassium 50 Mg Tablet PO 100 mg DAILY [facility] Administration Protocol Magnesium Oxide 400 mg 03/16/25 15:00 03/16/25 15:18 Magnesium Oxide 400 Mg Tablet PO 400 mg DAILY [facility] Administration Nicotine 21 mg 03/16/25 09:00 03/16/25 09:11 Nicotine 21 Mg Patch.Td24 TRANSDERMA 21 mg DAILY [facility] Administration Ondansetron HCl 4 mg 03/16/25 02:43 03/16/25 17:01 Ondansetron Hcl 4 Mg/2 Ml Vial IVPUSH 4 mg Q8H PRN Administration Nausea and Vomiting Sodium Chloride 3 ml 03/16/25 08:00 03/16/25 16:08 0.9 % Sodium Chloride Flush 3 Ml Syringe IVFLUSH Not Given QSHIFT [facility] Sodium Chloride 3 ml 03/16/25 08:00 03/16/25 16:09 0.9 % Sodium Chloride Flush 3 Ml Syringe IVFLUSH Not Given QSHIFT [facility] Spironolactone 25 mg 03/16/25 15:00 03/16/25 15:18 Spironolactone 25 Mg Tablet PO 25 mg DAILY [facility] Administration Protocol Tamsulosin HCl 0.4 mg 03/16/25 15:00 03/16/25 15:18 Tamsulosin Hcl 0.4 Mg Capsule PO 0.4 mg DAILY RANDALL Administration Discontinued Medications Generic Name Dose Route Start Last Admin Trade Name Candidoq PRN Reason Stop Dose Admin Gadobutrol 10 ml 03/16/25 13:55 03/16/25 13:55 Gadobutrol 10 Ml Vial IVPUSH 03/16/25 13:56 10 ml ONCE ONE Administration Hydromorphone HCl 0.5 mg 03/16/25 00:43 03/16/25 01:05 Hydromorphone Hcl 0.5 Mg/0.5 Ml Syringe IVPUSH 03/16/25 00:44 0.5 mg ONCE ONE Administration Protocol Sodium Chloride 1,000 mls @ 999 mls/hr 03/16/25 00:45 03/16/25 02:15 Ns IV 03/16/25 01:45 Infused .Q1H1M RANDALL Infusion Sodium Chloride 1,000 mls @ 999 mls/hr 03/16/25 01:30 03/16/25 02:15 Ns IV 03/16/25 02:30 Infused .Q1H1M RANDALL Infusion Vancomycin HCl 2,000 mg in 500 mls @ 250 mls/hr 03/16/25 02:07 03/16/25 02:31 Vancomycin/Ns IV 03/16/25 04:06 Not Given ONCE ONE Piperacillin Sod/Tazobactam 50 mls @ 100 mls/hr 03/16/25 02:07 03/16/25 03:05 Sod 3.375 gm/ Sodium Chloride IV 03/16/25 02:36 Infused ONCE ONE Infusion Linezolid 600 mg in 300 mls @ 300 mls/hr 03/16/25 05:00 03/16/25 06:30 Zyvox/D5w IV 03/16/25 05:59 Infused ONCE ONE Infusion Insulin Glargine 40 unit 03/16/25 03:04 03/16/25 03:38 Insulin Glargine,Hum.Rec.Anlog 100 Unit/Ml 10 Ml Vial SUBCUT 03/16/25 03:05 40 unit ONCE ONE Administration Insulin Human Lispro 8 unit 03/16/25 06:54 03/16/25 07:09 Insulin Lispro 100 Unit/Ml 3 Ml Vial SUBCUT 03/16/25 06:55 Not Given ONCE STA Insulin Human Regular 10 unit 03/16/25 01:04 03/16/25 01:17 Insulin Regular, Human 100 Unit/Ml 10 Ml Vial IVPUSH 03/16/25 01:05 10 unit ONCE ONE Administration Ketorolac Tromethamine 15 mg 03/16/25 04:01 03/16/25 04:21 Ketorolac Tromethamine 15 Mg/Ml Vial IVPUSH 03/16/25 04:02 15 mg ONCE ONE Administration Medical Decision Making Medical Decision Making [facility] Narrative: 54 year old male with pmhx significant for asthma, T2DM, HTN, CKD presents to the ED today via EMS for evaluation of wound to right great toe. vital signs stable, afebrile. please refer to exam portion for findings. Differential diagnosis includes diabetic foot ulcer, osteomyelitis, cellulitis. Unlikely gout, pseudogout, abscess. Plan for labs, inflammatory markers, vbg, lactic, blood cultures, xr, IVF and re-evaluation. Differential Diagnosis Differential Diagnoses: The differential diagnosis associated with the presentation includes as above Admission/Observation Consideration of admission/observation: Escalation of care including admission/observation considered patient admitted to medicine for IV abx therapy. Consult Healthcare Provider Management of the patient was discussed with: Hospitalist (dr. mariee) Lab Data [facility] Lab Attestation statement: I reviewed the patient's lab results. as above. 03/16/25 05:44 03/16/25 05:44 Labs: Lab Results 03/16/25 03/16/25 03/16/25 Range/Units 00:38 00:59 01:16 WBC 10.6 (4.8-10.8) X10*3/uL RBC 4.67 (4.60-5.80) X10*6/uL Hgb 13.1 L (14.0-18.0) g/dl Hct 37.6 L (42.0-52.0) % MCV 80.5 (80.0-98.0) fL MCH 28.1 (27.0-33.0) pg MCHC 34.8 (31.0-36.0) g/dl RDW 13.5 (11.0-16.0) % Plt Count 296 (160-400) X10*3/uL MPV 9.3 L (9.4-12.4) fL Immature Gran % (Auto) 0.7 H (0.0-0.4) % Neut % (Auto) 70.8 (45-73) % Lymph % (Auto) 15.0 L (20-40) % [place]yo % (Auto) 10.2 (2-11) % Eos % (Auto) 2.4 (0-4) % Baso % (Auto) 0.9 (0-2) % Lymph # (Auto) 1.6 (1.2-4.9) X10*3/uL [place]yo # (Auto) 1.1 (0.1-1.2) X10*3/uL Eos # (Auto) 0.3 (0.0-0.4) X10*3/uL Baso # (Auto) 0.1 (0.0-0.2) X10*3/uL Abs Immat Gran (auto) 0.07 H (0.00-0.03) X10*3/uL Absolute Neuts (auto) 7.5 (2.0-8.3) x10*3/uL Absolute Nucleated RBC 0.000 (0.0-0.012) X10*3/uL Nucleated RBC % (auto) 0.0 (0.0-0.2) /100WBC ESR 84 H (0-15) MM/HR VBG pH (7.32-7.43) VBG pCO2 mmHg VBG pO2 mmHg VBG HCO3 (22-26) mmol/L VBG O2 Saturation % VBG Base Excess mmol/L Sodium 127 L (135-145) mmol/L Potassium 4.1 (3.3-5.1) mmol/L Chloride 92 L (96-108) mmol/L Carbon Dioxide 24 (22-29) mmol/L Anion Gap 15 (12-20) BUN 31 H (9-16) mg/dL Creatinine 1.01 (0.5-1.4) mg/dL Estim Creat Clear Calc 107.3 Estimated GFR > 60 POC Glucose > 600 H* (60-115) mg/dL Random Glucose 678 H* (60-115) mg/dL Lactic Acid 1.2 (0.5-2.0) mmol/L Calcium 8.5 D (8.4-10.2) mg/dL Magnesium 2.3 (1.6-2.6) mg/dL Total Bilirubin 0.6 (0.0-1.0) mg/dL AST 26 (5-37) U/L ALT 12 (0-40) U/L Alkaline Phosphatase 132 H (39-117) U/L C-Reactive Protein 12.15 H (< or = 0.50) mg/dL NT-Pro-B Natriuret Pep 443.2 H (<300) pg/mL Total Protein 7.3 (6.5-8.0) g/dL Albumin 3.2 L (3.5-5.0) g/dL TSH 0.82 (0.32-4.0) uIU/mL Urine Color Yellow Urine Appearance Clear Urine pH 5.5 (5.0-9.0) Ur Specific Arjay >= 1.030 H (1.005-1.025) Urine Protein 100 (2+) H (Neg-Trace) mg/dL Urine Glucose (UA) >=1000 H (Negative) mg/dL Urine Ketones Trace (Negative) mg/dL Urine Blood Trace H (Negative) Urine Nitrite Negative (Negative) Ur Leukocyte Esterase Negative (Negative) Urine RBC 3-5 H (0-2) /HPF Urine WBC 0-5 (0-5) /HPF Ur Squamous Epith Cells 0-2 (0-2) /HPF Urine Bacteria None Seen (None Seen) Hyaline Casts 0-2 (0-2) /LPF 03/16/25 03/16/25 Range/Units 01:25 02:19 WBC (4.8-10.8) X10*3/uL RBC (4.60-5.80) X10*6/uL Hgb (14.0-18.0) g/dl Hct (42.0-52.0) % MCV (80.0-98.0) fL MCH (27.0-33.0) pg MCHC (31.0-36.0) g/dl RDW (11.0-16.0) % Plt Count (160-400) X10*3/uL MPV (9.4-12.4) fL Immature Gran % (Auto) (0.0-0.4) % Neut % (Auto) (45-73) % Lymph % (Auto) (20-40) % [place]yo % (Auto) (2-11) % Eos % (Auto) (0-4) % Baso % (Auto) (0-2) % Lymph # (Auto) (1.2-4.9) X10*3/uL [place] # (Auto) (0.1-1.2) X10*3/uL Eos # (Auto) (0.0-0.4) X10*3/uL Baso # (Auto) (0.0-0.2) X10*3/uL Abs Immat Gran (auto) (0.00-0.03) X10*3/uL Absolute Neuts (auto) (2.0-8.3) x10*3/uL Absolute Nucleated RBC (0.0-0.012) X10*3/uL Nucleated RBC % (auto) (0.0-0.2) /100WBC ESR (0-15) MM/HR VBG pH 7.45 H (7.32-7.43) VBG pCO2 36 mmHg VBG pO2 103 mmHg VBG HCO3 25 (22-26) mmol/L VBG O2 Saturation 99.0 % VBG Base Excess 1.9 mmol/L Sodium (135-145) mmol/L Potassium (3.3-5.1) mmol/L Chloride (96-108) mmol/L Carbon Dioxide (22-29) mmol/L Anion Gap (12-20) BUN (9-16) mg/dL Creatinine (0.5-1.4) mg/dL Estim Creat Clear Calc Estimated GFR POC Glucose 340 H (60-115) mg/dL Random Glucose (60-115) mg/dL Lactic Acid (0.5-2.0) mmol/L Calcium (8.4-10.2) mg/dL Magnesium (1.6-2.6) mg/dL Total Bilirubin (0.0-1.0) mg/dL AST (5-37) U/L ALT (0-40) U/L Alkaline Phosphatase (39-117) U/L C-Reactive Protein (< or = 0.50) mg/dL NT-Pro-B Natriuret Pep (<300) pg/mL Total Protein (6.5-8.0) g/dL Albumin (3.5-5.0) g/dL TSH (0.32-4.0) uIU/mL Urine Color Urine Appearance Urine pH (5.0-9.0) Ur Specific Arjay (1.005-1.025) Urine Protein (Neg-Trace) mg/dL Urine Glucose (UA) (Negative) mg/dL Urine Ketones (Negative) mg/dL Urine Blood (Negative) Urine Nitrite (Negative) Ur Leukocyte Esterase (Negative) Urine RBC (0-2) /HPF Urine WBC (0-5) /HPF Ur Squamous Epith Cells (0-2) /HPF Urine Bacteria (None Seen) Hyaline Casts (0-2) /LPF Independent Interpretation I performed an independent interpretation of an: Plain X-Ray Interpretation: xr right foot w/ osteo Radiology Impression Discussion of test interpretation with radiology: I have reviewed the radiologist's reading. Radiologist Impression: Date of Service: 03/16/25 Procedure(s): XR foot RT min 3V Accession Number(s): [id number] cc: Concha Singer; Milena Shoemaker MD~ Reason for Exam: right great toe wound diabetic CLINICAL HISTORY: right great toe wound diabetic --- Additional Notes or Special Instructions: r o osteo 3 view right foot Comparison: DX/SR - XR FOOT RT MIN 3V - 04/26/2024 12:58 PM EST Findings: Talus and subtalar articulations are normal. Calcaneus is normal. Moderate talonavicular degenerative change . Severe joint space narrowing between the navicular and cuneiforms with erosive changes. There is soft tissue stranding. Calcaneocuboid alignment is normal. Metatarsophalangeal articulations are normally aligned. There is diffuse swelling of the 1st digit. Irregular changes at the distal phalanx tuft may represent sequelae of infection. No abnormal soft tissue calcification. Remainder of phalanges and metatarsals are normal. IMPRESSION: 1. First digit distal tuft irregularity may represent sequelae of infection or osteomyelitis. 2. Severe degenerative changes at the navicular with erosions and marginal osteophytes. This may represent degenerative change, inflammation, or sequelae of infection. This document has been electronically signed by: Jamar Wilhelm III, MD PHD on 03/16/2025 02:35:27 Independent Historian Clinical information obtained from an independent historian. History obtained from or confirmed by: EMS External Record Review External record reviewed: Inpatient record, Office record, Outpatient record and Prior outpatient labs Prescription Management I considered prescription management with: Pain Medication and Antibiotic Chronic Conditions Patient?s care impacted by: Diabetes Social Determinants Patient?s care significantly limited by Social Determinants of Health including: Other Social Determinant of Health Critical Care Time Critical Care Time Critical Care Time: Yes Total Critical Care Time: 37 Attestation: Critical care time in the amount of 37 minutes has been provided to the patient in terms of direct patient care, frequent reevaluation, consultation with hospitalist, review and interpretation of medical data and results, and management of potentially life-threatening conditions. This is all outside of any medical procedures. Discharge Plan Discharge Clinical Impression: Ulcer of great toe, Osteomyelitis, Hyperglycemia Patient Disposition: Admitted As Inpatient Interventions: Admission Worksheet (ED) Last Done: 03/16/25 07:47 Discharge Date/Time: 03/16/25 08:58
[2025-03-16 00:59] LABS: Glucose, Whole Blood > 600 mg/dL (60-115)
[2025-03-16 01:10] LABS: MANUAL DIFF FLAG NO
[2025-03-16 01:16] LABS: Hematocrit 37.6 % (42.0-52.0); Hemoglobin 13.1 g/dl (14.0-18.0); Imm Gran Abs Auto 0.07 X10*3/uL (0.00-0.03); Imm Gran Pct Auto 0.7 % (0.0-0.4); Lymphocytes Absolute Auto 1.6 X10*3/uL (1.2-4.9); Mean Corpuscular HGB Conc 34.8 g/dl (31.0-36.0); Mean Corpuscular Hemoglobin 28.1 pg (27.0-33.0); Mean Corpuscular Volume 80.5 fL (80.0-98.0); NRBC Abs Auto 0.000 X10*3/uL (0.0-0.012); NRBC Pct Auto 0.0 /100WBC (0.0-0.2); Platelet Count 296 X10*3/uL (160-400); Red Blood Count 4.67 X10*6/uL (4.60-5.80); White Blood Count 10.6 X10*3/uL (4.8-10.8)
[2025-03-16 01:24] LABS: Venous Blood Gas Refer to POC result
[2025-03-16 01:28] LABS: Appearance Urine Clear; Glucose Urine UA >=1000 mg/dL (Negative); PH 5.5 (5.0-9.0); Specific Gravity - Urine >= 1.030 (1.005-1.025); UMIC TRIGGER UACC YES
[2025-03-16 01:29] LABS: VBG HCO3 25 mmol/L (22-26); VBG O2 % Saturation 99.0 %
[2025-03-16 01:30] LABS: Alanine Aminotransferase 12 U/L (0-40); Albumin Level 3.2 g/dL (3.5-5.0); Alkaline Phosphatase 132 U/L (39-117); Anion Gap 15 (12-20); Aspartate Amino Transferase 26 U/L (5-37); Blood Urea Nitrogen 31 mg/dL (9-16); Calcium 8.5 mg/dL (8.4-10.2); Carbon Dioxide 24 mmol/L (22-29); Chloride 92 mmol/L (96-108); Creatinine Clr Calc Pharmacy 107.3; Estimated Glomerular Filt Rate > 60; Magnesium 2.3 mg/dL (1.6-2.6); Potassium 4.1 mmol/L (3.3-5.1); Sodium 127 mmol/L (135-145); Total Protein 7.3 g/dL (6.5-8.0)
--- OUTSIDE RECORDS SUMMARY | 2025-03-16 02:14 | XMS_ITS | Encounter Summary ---
Author Organization [employer] Address [address] [facility] [address] [place] [address] Care Team Providers Care Marketing Writer Name Role Phone Milena Shoemaker MD Primary Care Provider [phone] Reason for Visit * Reason Onset Date Comments Med Refill 02/13/2025 Encounter Details Date Type Department Care Team ([facility] st Contact Info) Description 02/13/2025 Refill [facility] [address] [place] [address] Milena Shoemaker MD [address] [place] [address] Anaphylaxis, sequela Social History Tobacco Use Types [...] Upcoming Encounters Date Type Department Care Team ([facility] st Contact Info) Description 03/21/2025 11:30 AM EDT Office Visit [facility] [address] [place] [address] Milena Shoemaker MD [address] [place] [address] 04/10/2025 3:15 PM EDT Clinical Support [facility] [address] [place] [address] Luma Dalton, RN [address] [place] [address] documented as of this encounter Visit Diagnoses Diagnosis Anaphylaxis, sequela documented in this encounter Additional Health Concerns Assessment Noted Time PHQ-9 Depression Total Score: 4 01/18/20 25 12:43 PM EDT documented as of this encounter Care Teams Marketing Writer Relationship Specialty Start Date End Date Milena Shoemaker MD [address] [place] [address] PCP - General Family Medicine 08/12/22 Maria G Sellers CNP Psychiatrist 02/23/23 documented as of this encounter
--- OUTSIDE RECORDS SUMMARY | 2025-03-16 02:14 | XMS_ITS | Encounter Summary ---
Author Organization [employer] Address [address] [place] [address] Care Team Providers Care Swimming Pool Service Technician Name Role Phone Milena Shoemaker MD Primary Care Provider [phone] Encounter Details Date Type Department Care Team ([facility] st Contact Info) Description 03/11/2025 Telephone [facility] [address] [place] [address] Milena Shoemaker MD [address] [place], [place] [id number] Social History Tobacco Use Types Packs/Day Years [...] encounter Miscellaneous Notes * Telephone Encounter - Deidra Chauhan - 03/11/2025 3:03 PM EDT Pharmacy [facility] attempted outreach call on 03/11/25 for CDTM - Diabetes appointment; however, unable to reach patient. LVM for patient to contact Deidra Chauhan at [phone]. documented in this encounter Plan of Treatment Upcoming Encounters Date Type Department Care Team ([facility] st Contact Info) Description 03/21/2025 11:30 AM EDT Office Visit [facility] [address] [place] [address] Milena Shoemaker MD [address] [place] [address] 04/10/2025 3:15 PM EDT Clinical Support [facility] [address] [place] [address] Luma Dalton RN [address] [place] [address] documented as of this encounter Visit Diagnoses Not on filedocumented in this encounter Additional Health Concerns Assessment Noted Time PHQ-9 Depression Total Score: 4 01/18/20 12:43 PM EDT documented as of this encounter Care Teams Swimming Pool Service Technician Relationship Specialty Start Date End Date Milena Shoemaker MD [address] [place] [address] PCP - General Family Medicine 08/12/22 Maria G Sellers CNP Psychiatrist 02/23/23 documented as of this encounter
--- OUTSIDE RECORDS SUMMARY | 2025-03-16 02:14 | XMS_ITS | Encounter Summary ---
Author Organization [employer] Address [address] [place] [address] [address] [place] [address] Care Team Providers Care Analytical Data Scientist Name Role Phone Milena Shoemaker MD Primary Care Provider [phone] Reason for Visit * Reason Comments Med Refill Encounter Details Date Type Department Care Team ([facility] st Contact Info) Description 08/30/2022 Refill [facility] [address] [place], [place] [phone] Milena Shoemaker MD [address] [place] [address] Chronic midline low back pain without sciatica [...] PM EDT This is a not a half-way medication this is for short term, at [...] Care Team (Late st Contact Info) Description 03/21/2025 11:30 AM EDT Office Visit [facility] P[facility] [address] [place] [address] Milena Shoemaker MD [address] [place] [address] 04/10/2025 3:15 PM EDT Clinical Support [facility] [address] [place] [address] Luma Dalton RN [address] [place] [address] documented as of this encounter Visit Diagnoses Diagnosis Chronic midline low back pain without sciatica documented in this encounter Additional Health Concerns Assessment Noted Time PHQ-9 Depression Total Score: 7 07/15/19 23 1:17 PM EST documented as of this encounter Care Teams Analytical Data Scientist Relationship Specialty Start Date End Date Milena Shoemaker MD [address] [place] [id number] PCP - General Family Medicine 08/12/22 Maria G Sellers CNP Psychiatrist 02/23/23 documented as of this encounter
--- OUTSIDE RECORDS SUMMARY | 2025-03-16 02:14 | XMS_ITS | Encounter Summary ---
Author Organization [employer] Address 75 [facility] 7 [place] [address] Care Team Providers Care Porter Sample Case Name Role Phone Milena Shoemaker MD Primary Care Provider [phone] Reason for Visit * Reason Onset Date Comments Hospital Follow-up 09/23/2023 Encounter Details Date Type Department Care Team ([facility] Contact Info) Description 09/23/2023 Telephone [facility] [address] [place], [place] [phone] Milena Shoemaker MD [address] [place] [address] Hospital Follow-up Social History Tobacco Use Types [...] from pt requesting a HDF appt. Hospital: [facility] then transferred to [facility] Date of admission: unknown Discharge date: 09/15 Diagnosed: Septic arthritis of vertebra and ID Please contact pt at [phone] documented in this encounter Plan of Treatment Upcoming Encounters Date Type Department Care Team (Late st Contact Info) Description 03/21/2025 11:30 AM EDT Office Visit [facility]ED[facility] [address] [place] [address] Milena Shoemaker MD [address] [place] [address] 04/10/2025 3:15 PM EDT Clinical Support [facility] [address] [place] [address] Luma Dalton, LUIS 505 [place] [address] documented as of this encounter Visit Diagnoses Not on filedocumented in this encounter Additional Health Concerns Assessment Noted Time PHQ-9 Depression Total Score: 7 07/15/19 23 1:17 PM EST documented as of this encounter Care Teams Porter Sample Case Relationship Specialty Start Date End Date Milena Shoemaker MD [address] [place] [address] PCP - General Family Medicine 08/12/22 Maria G Sellers, BOTTOM TURNER Psychiatrist 02/23/23 documented as of this encounter
--- OUTSIDE RECORDS SUMMARY | 2025-03-16 02:14 | XMS_ITS | Encounter Summary ---
Author Organization [employer] Address 75 [facility] 7 [place] [address] Care Team Providers Care Sign Language Instructor Name Role Phone Milena Shoemaker MD Primary Care Provider Encounter Details Date Type Department Care Team ([facility] Contact Info) Description 09/18/2024 Orders Only [facility] 505 [place], [place] [phone] Johanna Camargo MD 505 [place] [address] Social History Tobacco Use Types Packs/Day Years [...] t he electric, gas, oil or water [employer] threatened to shut off services in your [...] 03/21/2025 11:30 AM EDT Office Visit [facility] PED[facility] 505 [place] [address] Milena Shoemaker MD 505 [place] [address] 04/10/2025 3:15 PM EDT Clinical Support [facility] [address] [place] [address] Luma Dalton, LUIS 505 [place] [address] documented as of this encounter Visit Diagnoses Not on filedocumented in this encounter Additional Health Concerns Assessment Noted Time PHQ-9 Depression Total Score: 7 07/15/19 23 1:17 PM EST documented as of this encounter Care Teams Sign Language Instructor Relationship Specialty Start Date End Date Milena Shoemaker MD [address] [place] [address] PCP - General Family Medicine 08/12/22 Maria G Sellers CNP Psychiatrist 02/23/23 documented as of this encounter
--- OUTSIDE RECORDS SUMMARY | 2025-03-16 02:14 | XMS_ITS | Encounter Summary ---
Author Organization [employer] Address 75 [facility] 7t [place] [address] Care Team Providers Care Personnel Training Officer Name Role Phone Milena Shoemaker MD Primary Care Provider Reason for Visit * Reason Onset Date Comments Med Refill 03/15/2025 Encounter Details Date Type Department Care Team ([facility] Contact Info) Description 03/15/[address] [facility] & PEDS 505 [place], [place] [phone] Eri Leo MD 505 [place] [address] Asthma, unspecified asthma severity, unspecified whether complicated, [...] Description 03/21/2025 11:30 AM EDT Office Visit [facility] MED [facility] PEDS 505 [place] [address] Milena Shoemaker MD 505 [place] [address] 04/10/2025 3:15 PM EDT Clinical Support [facility]ED[facility] 505 [place] [address] Luma Dalton, RN 505 [place] [address] documented as of this encounter Visit Diagnoses Diagnosis Asthma, unspecified asthma severity, unspecified whether complicated, unspecified whether persistent documented in this encounter Additional Health Concerns Assessment Noted Time PHQ-9 Depression Total Score: 4 01/18/20 25 12:43 PM EDT documented as of this encounter Care Teams Personnel Training Officer Relationship Specialty Start Date End Date Milena Shoemaker MD [address] [place] [address] PCP - General Family Medicine 08/12/22 Maria G Sellers CNP Psychiatrist 02/23/23 documented as of this encounter
--- OUTSIDE RECORDS SUMMARY | 2025-03-16 02:14 | XMS_ITS | Encounter Summary ---
Author Organization [employer] Address 75 [facility] 7t [place] [address] Care Team Providers Care Play Leader Name Role Phone Milena Shoemaker MD Primary Care Provider [phone] Reason for Visit * Reason Onset Date Comments Med Refill 03/15/2025 Encounter Details Date Type Department Care Team ([facility] st Contact Info) Description 03/15/2025 Refill [facility] MED [facility] PEDS 505 [place], [place] [phone] Milena Shoemaker MD 505 [place] [address] Chronic midline low back pain without sciatica [...] 11:30 AM EDT Office Visit [facility] MED & PEDS 505 [place] [address] Milena Shoemaker MD 505 [place] [address] 04/10/2025 3:15 PM EDT Clinical Support [facility] MED & PEDS 505 [place] [address] Luma Dalton, RN 505 [place] [address] documented as of this encounter Visit Diagnoses Diagnosis Chronic midline low back pain without sciatica documented in this encounter Additional Health Concerns Assessment Noted Time PHQ-9 Depression Total Score: 4 01/18/20 25 12:43 PM EDT documented as of this encounter Care Teams Play Leader Relationship Specialty Start Date End Date Milena Shoemaker MD [address] [place] [address] PCP - General Family Medicine 08/12/22 Maria G Sellers CNP Psychiatrist 02/23/23 documented as of this encounter
--- OUTSIDE RECORDS SUMMARY | 2025-03-16 02:14 | XMS_ITS | Encounter Summary ---
Author Organization [employer] Address 75 [facility] 7 [place] [address] Care Team Providers Care Bulk Mail Clerk Name Role Phone Milena Shoemaker MD Primary Care Provider [phone] Reason for Visit * Reason Comments Med Refill Encounter Details Date Type Department Care Team ([facility] Contact Info) Description 01/23/2024 Refill [facility] MED & PEDS 505 [place], [place] [phone] Olivia Garcia MD 505 [place] [address] Chronic midline low back pain without sciatica [...] 11:30 AM EDT Office Visit [facility] MED & PEDS 505 [place] [address] Milena Shoemaker MD 505 [place] [address] 04/10/2025 3:15 PM EDT Clinical Support [facility] MED & PEDS 505 [place] [address] Luma Dalton, RN 505 [place] [address] documented as of this encounter Visit Diagnoses Diagnosis Chronic midline low back pain without sciatica documented in this encounter Additional Health Concerns Assessment Noted Time PHQ-9 Depression Total Score: 7 07/15/19 23 1:17 PM EST documented as of this encounter Care Teams Bulk Mail Clerk Relationship Specialty Start Date End Date Milena Shoemaker MD 230 [place] [address] PCP - General Family Medicine 08/12/22 Maria G Sellers CNP Psychiatrist 02/23/23 documented as of this encounter
--- OUTSIDE RECORDS SUMMARY | 2025-03-16 02:14 | XMS_ITS | Encounter Summary ---
Author Organization [employer] Address 75 [facility] 7 [place] [address] Care Team Providers Care Harbor Master Name Role Phone Milena Shoemaker MD Primary Care Provider [phone] Reason for Visit * Reason Onset Date Comments Med Refill 04/10/2024 Encounter Details Date Type Department Care Team ([facility] Contact Info) Description 04/10/2024 Refill [facility] & PEDS 505 [place], [place] [phone] Milena Shoemaker MD 505 [place] [address] Chronic midline low back pain without sciatica [...] is your housing situation today? I have anselom chua 08/11/[address] you [...] Description 03/21/2025 11:30 AM EDT Office Visit [facility]ED[facility] 505 [place] [address] Milena Shoemaker MD 505 [place] [address] 04/10/2025 3:15 PM EDT Clinical Support [facility] 505 [place] [address] Luma Dalton, LUIS 505 [place] [address] documented as of this encounter Visit Diagnoses Diagnosis Chronic midline low back pain without sciatica documented in this encounter Additional Health Concerns Assessment Noted Time PHQ-9 Depression Total Score: 7 07/15/19 23 1:17 PM EST documented as of this encounter Care Teams Harbor Master Relationship Specialty Start Date End Date Milena Shoemaker MD [address] [place] [address] PCP - General Family Medicine 08/12/22 Maria G Sellers CNP Psychiatrist 02/23/23 documented as of this encounter
--- OUTSIDE RECORDS SUMMARY | 2025-03-16 02:14 | XMS_ITS | Encounter Summary ---
Author Organization [employer] Address 75 [facility] 7t [place] [address] Care Team Providers Care Manager Progressive Care Name Role Phone Milena Shoemaker MD Primary Care Provider [phone] Reason for Visit * Reason Comments Med Refill Encounter Details Date Type Department Care Team ([facility] st Contact Info) Description 06/01/2023 Refill [facility] MED & PEDS [address] [place], [place] [phone] Milena Shoemaker MD 505 [place] [address] Chronic midline low back pain without sciatica [...] 11:30 AM EDT Office Visit [facility] MED [facility] PED[facility] [address] [place] [address] Milena Shoemaker MD 505 [place] [address] 04/10/2025 3:15 PM EDT Clinical Support [facility] MED & PEDS [address] [place] [address] Luma Dalton, LUIS 505 [place] [address] documented as of this encounter Visit Diagnoses Diagnosis Chronic midline low back pain without sciatica documented in this encounter Additional Health Concerns Assessment Noted Time PHQ-9 Depression Total Score: 7 07/15/19 23 1:17 PM EST documented as of this encounter Care Teams Manager Progressive Care Relationship Specialty Start Date End Date Milena Shoemaker MD 230 [place] [address] PCP - General Family Medicine 08/12/22 Maria G Sellers CNP Psychiatrist 02/23/23 documented as of this encounter
--- OUTSIDE RECORDS SUMMARY | 2025-03-16 02:14 | XMS_ITS | Encounter Summary ---
Author Organization [employer] Address 75 [facility] 7 [place] [address] Care Team Providers Care Polystyrene Molding Machine Tender Name Role Phone Milena Shoemaker MD Primary Care Provider [phone] Reason for Visit * Reason Onset Date Comments Med Refill 10/15/2024 Encounter Details Date Type Department Care Team ([facility] Contact Info) Description 10/15/2024 Refill [facility] MED & PEDS [address] [place], [place] [phone] Sowmya Duron FNP 505 [place] [address] Asthma, unspecified asthma severity, unspecified whether complicated, [...] 11:30 AM EDT Office Visit [facility] MED & PED[facility] [address] [place] [address] Milena Shoemaker MD 505 [place] [address] 04/10/2025 3:15 PM EDT Clinical Support [facility] MED [facility] PED[facility] 505 [place] [address] Luma Dalton, LUIS 505 [place] [address] documented as of this encounter Visit Diagnoses Diagnosis Asthma, unspecified asthma severity, unspecified whether complicated, unspecified whether persistent documented in this encounter Additional Health Concerns Assessment Noted Time PHQ-9 Depression Total Score: 7 07/15/19 23 1:17 PM EST documented as of this encounter Care Teams Polystyrene Molding Machine Tender Relationship Specialty Start Date End Date Milena Shoemaker MD [address] [place] [address] PCP - General Family Medicine 08/12/22 Maria G Sellers CNP Psychiatrist 02/23/23 documented as of this encounter
--- OUTSIDE RECORDS SUMMARY | 2025-03-16 02:14 | XMS_ITS | Encounter Summary ---
Author Organization [employer] Address 75 [facility] 7t [place] [address] Care Team Providers Care Green Feed Attendant Name Role Phone Milena Shoemaker MD Primary Care Provider [phone] Reason for Referral * Consultation (STAT) - Closed Specialty Diagnoses / Procedures Referred By Contac t Referred To Contact Diagnoses Septic arthritis of lumbar spine ([facility]) Milena Shoemaker MD [address] [place] [address] Phone: tel: fax: Myla Garza MD [address] [place] [address] Phone: tel: fax: Referral ID Status Reason Start Date Expiration Date V isits Requested Visits Authorized [id number] Closed Specialty Services Required 09/13/2023 09/12/2024 1 1 Reason for Visit * Reason Onset Date Comments Call Back Request 09/12/2023 Encounter Details Date Type Department Care Team (Late st Contact Info) Description 09/12/2023 Telephone [facility] [address] [place] [address] Milena Shoemaker MD 505 [place], [place] [phone] Call Back Request Social History Tobacco Use [...] EDT Tc to Sanna, she stated that [facility] accepted him and [facility] will handle his IV antibiotics. There is no ID referral available as no one would take the pt as stated by Sanna. Sanna is the nurse healthcare risk control consultant so is the de facto manager social for the pt at the hospital. Phone number for Dr. Zimmerman is [phone]. If unable to get a hold of this provider, the other provider working with Dr. Zimmerman is Dr. Beltran, number [phone]. * Telephone Encounter - Milena Shoemaker MD - 09/13/2023 2:52 PM EDT Please request Sanna to provide Dr. Zimmerman phone, he also needs a VNA agency to be setup before he goes home. Please get the manager social involved as this needs coordination of services [...] PM EDT Tc from Sanna at the [facility] requesting a call back to get orders for the patient to continue at home IV antibiotics if not the patient would have stay in the hospital to finish the process please call Sanna at [phone] Ext. [phone] documented in this encounter Plan of Treatment Upcoming Encounters Date Type Department Care Team (Late st Contact Info) Description 03/21/2025 11:30 AM EDT Office Visit [facility] & PEDS [address] [place] [address] Milena Shoemaker MD 505 [place] [address] 04/10/2025 3:15 PM EDT Clinical Support [facility] PED[facility] [address] [place] [address] Luma Dalton, RN 505 [place] [address] Scheduled Referrals Name Type Priority Associated Diagnoses [...] documented as of this encounter Care Teams Green Feed Attendant Relationship Specialty Start Date End Date Milena Shoemaker MD [address] [place] [address] PCP - General Family Medicine 08/12/22 Maria G Sellers CNP Psychiatrist 02/23/23 documented as of this encounter
--- OUTSIDE RECORDS SUMMARY | 2025-03-16 02:14 | XMS_ITS | Clinical Summary ---
Author Organization [facility] Address [address] [place] [address] Care Team Providers Care Deputy K 9 Name Role Phone Milena Shoemaker MD Primary Care Provider [phone] Social History Tobacco Use Types Packs/Day Years [...] 2025 Insurance Medicare Medicaid [place] Care Teams Deputy K 9 Relationship Specialty Start Date End Date Milena Shoemaker MD [address] [place] [address] PCP - General Family Medicine 11/05/22
--- OUTSIDE RECORDS SUMMARY | 2025-03-16 02:14 | XMS_ITS | Encounter Summary ---
Author Organization [employer] Address 75 [facility] 7 [place] [address] Care Team Providers Care Loaf Counter Name Role Phone Milena Shoemaker MD Primary Care Provider [phone] Encounter Details Date Type Department Care Team ([facility] Contact Info) Description 12/23/2023 Orders Only [facility] MED & PEDS 505 [place], [place] [phone] Johanna Camargo MD 505 [place] [address] Primary hypertension (Primary Dx) Social History Tobacco [...] [facility] 505 [place] [address] Milena Shoemaker MD 505 [place] [address] 04/10/2025 3:15 PM EDT Clinical Support [facility] MED & PEDS 505 [place] [address] Luma Dalton, LUIS 505 [place] [address] documented as of this encounter Visit Diagnoses Diagnosis Primary hypertension- Primary Unspecified essential hypertension documented in this encounter Additional Health Concerns Assessment Noted Time PHQ-9 Depression Total Score: 7 07/15/19 23 1:17 PM EST documented as of this encounter Care Teams Loaf Counter Relationship Specialty Start Date End Date Milena Shoemaker MD [address] [place] [address] PCP - General Family Medicine 08/12/22 Maria G Sellers CNP Psychiatrist 02/23/23 documented as of this encounter
--- OUTSIDE RECORDS SUMMARY | 2025-03-16 02:14 | XMS_ITS | Encounter Summary ---
Author Organization [employer] Address 75 [facility] 7t [place] [address] Care Team Providers Care Property Utilization Manager Name Role Phone Milena Shoemaker MD Primary Care Provider [phone] Reason for Visit * Reason Comments Med Refill Encounter Details Date Type Department Care Team ([facility] st Contact Info) Description 12/10/2023 Refill [facility] MED & PEDS 505 [place], [place] [phone] Milena Shoemaker MD 505 [place] [address] Social History Tobacco Use Types Packs/Day Years [...] [facility] MED & PEDS 505 [place] [address] Milena Shoemaker MD 505 [place] [address] 04/10/2025 3:15 PM EDT Clinical Support [facility] MED & PEDS 505 [place] [address] Luma Dalton, LUIS 505 [place] [address] documented as of this encounter Visit Diagnoses Not on filedocumented in this encounter Additional Health Concerns Assessment Noted Time PHQ-9 Depression Total Score: 7 07/15/19 23 1:17 PM EST documented as of this encounter Care Teams Property Utilization Manager Relationship Specialty Start Date End Date Milena Shoemaker MD [address] [place] [address] PCP - General Family Medicine 08/12/22 Maria G Sellers CNP Psychiatrist 02/23/23 documented as of this encounter
--- OUTSIDE RECORDS SUMMARY | 2025-03-16 02:14 | XMS_ITS | Encounter Summary ---
Author Organization [employer] Address [address] [place] [address] 7 [place] [address] Care Team Providers Care Senior Painter Name Role Phone Milena Shoemaker MD Primary Care Provider [phone] Encounter Details Date Type Department Care Team ([facility] Contact Info) Description 11/10/2022 [facility] Information Management [address] [place] [address] Milena Shoemaker MD [address] [place], [place] [phone] Social History Tobacco Use Types Packs/Day Years [...] Upcoming Encounters Date Type Department Care Team ([facility] Contact Info) Description 03/21/2025 11:30 AM EDT Office Visit [facility] CHC MED & PEDS 505 [place], [place] [phone] Milena Shoemaker MD [address] [place] [address] 04/10/2025 3:15 PM EDT Clinical Support [facility] CHC MED & PEDS 505 [place] [address] Luma Dalton, RN 505 [place] [address] documented as of this encounter Visit Diagnoses Not on filedocumented in this encounter Additional Health Concerns Assessment Noted Time PHQ-9 Depression Total Score: 7 07/15/19 23 1:17 PM EST documented as of this encounter Care Teams Senior Painter Relationship Specialty Start Date End Date Milena Shoemaker MD [address] [place] [address] PCP - General Family Medicine 08/12/22 Maria G Sellers CNP Psychiatrist 02/23/23 documented as of this encounter
--- OUTSIDE RECORDS SUMMARY | 2025-03-16 02:14 | XMS_ITS | Encounter Summary ---
Author Organization [employer] Address 75 [facility] 7 [place] [address] Care Team Providers Care Customer Management Specialist Name Role Phone Milena Shoemaker MD Primary Care Provider [phone] Reason for Visit * Reason Onset Date Comments Med Refill 08/15/2024 Encounter Details Date Type Department Care Team ([facility] Contact Info) Description 08/15/2024 Refill [facility] CH[facility] MED & PEDS [address] [place], [place] [phone] Avila Cee MD 505 [place] [address] Chronic midline low back pain without sciatica [...] Description 03/21/2025 11:30 AM EDT Office Visit [facility] MED & PEDS [address] [place] [address] Milena Shoemaker MD 505 [place] [address] 04/10/2025 3:15 PM EDT Clinical Support [facility] MED & PEDS [address] [place] [address] Luma Dalton, LUIS 505 [place] [address] documented as of this encounter Visit Diagnoses Diagnosis Chronic midline low back pain without sciatica documented in this encounter Additional Health Concerns Assessment Noted Time PHQ-9 Depression Total Score: 7 07/15/19 23 1:17 PM EST documented as of this encounter Care Teams Customer Management Specialist Relationship Specialty Start Date End Date Milena Shoemaker MD [address] [place] [address] PCP - General Family Medicine 08/12/22 Maria G Sellers CNP Psychiatrist 02/23/23 documented as of this encounter
--- OUTSIDE RECORDS SUMMARY | 2025-03-16 02:14 | XMS_ITS | Clinical Summary ---
Author Organization [employer] Address [address] [place] [address] 7t [place] [address] Care Team Providers Care Dietary Services Manager Name Role Phone Milena Shoemaker MD Primary Care Provider [phone] Allergies Active Allergy Reactions Criticality Noted Date [...] tablet Active Blood Glucose Monitoring Suppl (FreeStyle Juneau Lite) w/Device kit Use to test blood [...] polyneuropathy associated with type 2 diabetes mellitus (HCC) TAKE ONE TABLET THREE TIMES DAILY 90 [...] MM misc 1 each 4 times daily. 025 Active capsaicin (Zostrix) 0.025 % cream Apply topically 2 times daily. 56.6 g 2 025 2025 Active clotrimazole (Lotrimin) 1 % creamIndications :Tinea versicolor Apply topically 2 times daily. 90 g 025 Active Alcohol Swabs (Alcohol Prep) 70 % pads USE FOUR TIMES DAILY 100 each 025 Active acetaminophen (Tylenol 8 Hour) 650 [...] hyperglycemia, with long-term current use of insulin ([facility]) Take 1 tablet (25 mg) by mouth [...] hyperglycemia, with long-term current use of insulin ([facility]) Inject 2.5 mg under the skin 1 (one) time per week. Do not start before January 21, 2025. 2 mL 2 025 Active baclofen (Lioresal) 10 MG tabletIndication s:Chronic midline low back pain without sciatica TAKE ONE TABLET THREE TIMES DAILY 90 tablet 2 025 Active EPINEPHrine (Epipen) 0.3 MG/0.3ML injection syringeIndicatio ns:Anaphylaxis, sequela INJECT INTRAMUSCULARLY DIRECTED ON PACKAGE 4 each 025 Active albuterol (Ventolin HFA) 108 (90 Base) MCG/ACT inhalerIndicatio ns:Asthma, unspecified asthma severity, unspecified whether complicated, unspecified whether persistent INHALE 2 PUFFS BY MOUTH EVERY 4 TO 6 HOURS NEEDED FOR SHORTNESS OF BREATH OR WHEEZING 18 g 1 025 Active oxyCODONE (Roxicodone) 5 MG immediate release tabletIndication s:Chronic midline low back pain without sciatica Take 1 tablet (5 mg) by mouth every 6 (six) hours if needed for severe pain. Do not start before March 14, 2025. 112 tablet 025 Active albuterol (Ventolin HFA) 108 (90 [...] opiate analgesic 2024 Ulcer of great toe (CMS/HCC) 10/21/2023 Assessment & Plan (05/17/2024 2:28 PM [...] the foot. 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 This is consistent with the [place] [employer] s Standards of Medical Care in Diabetes--2023 (https://diabetesjournals.org/care/article/47/Supplement_1/S126/038243/7-Diabete s-Daysi reyuvgf-Bpsgpjhoe-vq-Care-in) Assessment & Plan (04/23/2024 1:51 AM EST): [...] be prudent to refer patient to supervisor counseling and guidance. Edema 07/15/2022 Assessment & Plan (07/15/2022 5:13 [...] right f oot with fat layer exposed ([facility]) 05/17/2024 05/17/2024 Type 2 diabetes mellitus, wi th long-term current use of insulin 08/30/2023 05/17/2024 Assessment & Plan (01/23/2024 11:31 AM EDT): A1c is improving but not at goal, 9.1%. Time in range is 36%, discussed range goal. Increasing Trulicity to 3 mg. Check glucose 4x daily. Relevant Medications Alcohol swabs 70% pads Blood Glucose Monitoring Suppl (Freestyle Juneau Lite) w/Device Kit Freestyle Lite test strip [facility] Assessment & Plan (10/21/2023 9:34 AM EDT): [...] Class 2 obesity 07/15/2022 07/15/2022 Morbid obesity (CMS/[facility]) 07/15/202205/2023 Renal mass 07/15/2022 07/15/2022 Encounters Date Type Department Care Team Description 03/15/2025 Refill [facility] [address] [place] [address] Milena Shoemaker MD Chronic midline low back pain without sciatica 03/15/2025 Refill [facility] [address] [place] [address] Eri Leo MD Asthma, unspecified asthma severity, unspecified whether complicated, unspecified whether persistent 03/11/2025 Telephone [facility] [address] [place] [address] Milena Shoemaker MD 03/07/2025 10:00 AM EDT Clinical Support [facility] [address] [place] [address] Luma Dalton RN Chronic midline low back pain without sciatica (Primary Dx) 03/07/2025 Refill [facility] [address] [place] [address] Luma Dalton RN Chronic midline low back pain without sciatica 03/07/2025 Telephone [facility] [address] [place] [address] Luma Dalton RN 03/07/2025 Travel 03/07/2025 Telephone [facility] [address] [place] [address] Luma Dalton RN 02/18/2025 Refill [facility] [address] [place] [address] Eri Leo MD Asthma, unspecified asthma severity, unspecified whether complicated, unspecified whether persistent 02/13/2025 Refill [facility] [address] [place] [address] Milena Shoemaker MD Anaphylaxis, sequela 02/13/2025 Refill [facility] [address] [place] [address] Milena Shoemaker MD Chronic midline low back pain without sciatica; Anaphylaxis, sequela 02/11/2025 Refill [facility] [address] [place] [address] Milena Shoemaker MD Chronic midline low back pain without sciatica 02/08/2025 Telephone [facility] [address] [place] [address] Milena Shoemaker MD Referral 01/31/2025 Telephone [facility] [address] [place] [address] Milena Shoemaker MD Referral 01/21/2025 10:30 AM EDT Clinical Support [facility] [address] [place] [address] Rosanne Whitfield RN Diabetic polyneuropathy associated with type 2 diabetes mellitus (CMS/HCC) [E11.42] 01/21/2025 Travel 01/17/2025 1:30 PM EDT Office Visit [facility] [address] [place] [address] Milena Shoemaker MD Type 2 diabetes mellitus with hyperglycemia, with long-term current use of insulin (CMS/HCC) (Primary Dx); Dietary counseling; Exercise counseling; Class 2 obesity without serious comorbidity with body mass index (BMI) of 38.0 to 38.9 in adult, unspecified obesity type; Resistant hypertension; Skin ulcer of right great toe, unspecified ulcer stage (CMS/HCC); Essential (primary) hypertension; Primary hypertension 01/17/2025 Travel 01/16/2025 Telephone [facility] [address] [place] [address] Sisi Olsen MD stable lab letter 01/16/2025 Results Follow-Up [facility] [address] [place] [address] Sisi Olsen MD POCT Rapid COVID Ag, Respiratory Viral Panel PCR 01/15/2025 Telephone [facility] [address] [place] [address] Milena Shoemaker MD CHART PREP 01/14/2025 Refill [facility] [address] [place] [address] Luma Dalton RN Chronic midline low back pain without sciatica 01/11/2025 Telephone [facility] [address] [place] [address] Milena Shoemaker MD 01/09/2025 Refill [facility] [address] [place] [address] Milena Shoemaker MD Cramp and spasm 01/07/2025 1:40 PM EDT Office Visit [facility] [address] [place] [address] Sisi Olsen MD Acute viral conjunctivitis of both eyes (Primary Dx); Acute non-recurrent maxillary sinusitis; Seasonal allergies 01/07/2025 Travel 12/30/2024 Refill [facility] [address] [place] [address] Milena Shoemaker MD 12/25/2024 11:00 AM EDT Clinical Support [facility] [address] [place] [address] Luma Dalton, LUIS Long-term current use of opiate analgesic 12/25/2024 Telephone [facility] [address] [place] [address] Luma Dalton RN 12/25/2024 Travel 12/19/[address] [address] Milena Shoemaker MD 12/19/2024 Travel 12/17/2024 4:00 PM EDT Office Visit [facility] [address] [place] [address] Milena Shoemaker MD Type 2 diabetes mellitus with hyperglycemia, with long-term current use of insulin ([facility]) (Primary Dx); Cervical radiculopathy; Chronic midline low back pain without sciatica; Tinea versicolor; Hypertension, unspecified type 12/17/2024 Travel from Last 3 Months Immunizations Immunization Administration [...] Description 03/21/2025 11:30 AM EDT Office Visit [facility] [address] [place] [address] Milena Shoemaker MD [address] [place] [address] 04/10/2025 3:15 PM EDT Clinical Support [facility] [address] [place] [address] Luma Dalton RN [address] [place] [address] Health Maintenance Due Date Last Done Comments [...] X-Ray: [facility] 11/14/2023 11/12/2022, 10/01 COVID-19 Vaccine ( season) 2025 08/13/2021 Influenza Vaccine (#1) 2025 2, 02/13/2009, 05/31/2006 Diabetes: Hemoglobin A1C 04/19/2025 0807/2 025, 12/10/2024, 04/20/2024, Additional history exists Diabetes: [...] Name Priority Date/Time Associated Diagnosis Comments POCT REMI-14 URINE DRUG SCREEN Routine 03/07/2025 10:31 AM EDT Chronic midline low back pain without sciatica POCT GLUCOSE Routine 01/17/2025 1:01 PM EDT Type 2 diabetes mellitus with hyperglycemia, with long-term current use of insulin ([facility]) POCT GLYCATED HEMOGLOBIN, TOTAL Routine 01/17/2025 1:00 PM EDT Type 2 diabetes mellitus with hyperglycemia, with long-term current use of insulin ([facility]) RESPIRATORY VIRAL PANEL PCR Routine 01/07/2025 2:21 PM EDT Seasonal allergies POCT RAPID COVID ANTIGEN Routine 01/07/2025 2:19 PM EDT Seasonal allergies POCT REMI-14 URINE DRUG SCREEN Routine 12/25/2024 10:22 AM EDT Long-term current use of opiate analgesic POCT GLUCOSE Routine 12/17/2024 4:20 PM EDT Type 2 diabetes mellitus with hyperglycemia, with long-term current use of insulin ([facility]) CREATININE, RANDOM URINE Routine 06/25/2024 3:06 PM EST INTRAORAL - COMPLETE SERIES OF RADIOGRAPHIC IMAGES Routine 11/12/2022 9:00 AM EDT COMPREHENSIVE ORAL EVALUATION - NEW OR ESTABLISHED PATIENT Routine 11/12/2022 9:00 AM EDT LIPID PANEL, STANDARD Routine 07/16/2022 10:33 AM EST Morbid obesity ([facility]) from Last 3 Months or Most Recently Relevant to Health Maintenance Results * (ABNORMAL) POCT REMI-14 Urine Drug Screen (03/07/2025 10:31 AM EDT) Only the most recent of2 resultswithin the time period is included. THC Positive(A) Negative Cocaine Screen, Urine Negative Negative Opiate Screen, Urine Negative Negative Methamphetamine Screen Urine Negative Negative Amphetamine Screen, Urine Negative Negative Benzodiazepines Screen, Urine Negative Negative Barbiturate Screen, Urine Negative Negative Methadone Screen, Urine Negative Negative Buprenophine Screen, Urine Negative Negative TCA, Urine Negative Negative MDMA Urine Negative Negative ng/mL Oxycodone Screen, Urine Negative Negative Phencyclidine (PCP), Urine Negative Negative Propoxyphene, Urine Negative Negative Fentanyl, Urine Negative Negative Urine Urine specimen obtained by clean catch procedure / Unknown 03/07/2025 10:31 AM EDT Narrative Luma Dalton RN - 03/07/2025 10:31 AM EDT . Internal Pass Control Lot# [id number] Exp: 04-12-26 Milena Shoemaker MD POINT OF CARE TEST ENTER/EDIT ORDERABLES Final Result * (ABNORMAL) POCT Glucose (01/17/2025 1:01 PM EDT) Only the most recent of2 resultswithin the time period is included. Glucose Blood, POC 500(A) 60 - 200 mg/dL Comment:[facility] QC Media Lot # [id number] Blood Capillary blood specimen / Unknown 01/17/2025 1:01 PM EDT Milena Shoemaker MD POINT OF CARE TEST ENTER/EDIT ORDERABLES Final Result * (ABNORMAL) POCT HGB A1C (01/17/2025 1:00 PM EDT) Pathologist [facility] Hemoglobin A1C 13.1(A) 4.0 - 5.7 % QC Media Lot # [id number] Lot# Expiration Date Blood 01/17/2025 1:00 PM EDT Milena Shoemaker MD POINT OF CARE TEST ENTER/EDIT ORDERABLES Final Result * Respiratory Viral Panel PCR (01/07/2025 2:21 PM EDT) Pathologist [facility] Adenovirus PCR Not Detected Not Detect. [facility] Bordetella pertussis PCR Not Detected Not Detect. [facility] Comment:Interpret results wi th caution. If B. pertussis isspecifically suspected, additional testing using analternate method is recommended. Bordetella parapertussis PCR Not Detected Not Detect. [facility] Chlamydia pneumoniae PCR Not Detected Not Detect. [facility] Coronavirus 229E PCR Not Detected Not Detect. [facility] Coronavirus HKU1 PCR Not Detected Not Detect. [facility] Coronavirus NL63 PCR Not Detected Not Detect. [facility] Coronavirus OC43 PCR Not Detected Not Detect. [facility] SARS-CoV-2 PCR Not Detected Not Detect. [facility] Comment:SARS-CoV-2 not detec susan by [...] Influenza A PCR Not Detected Not Detect. [facility] Influenza A Subtype H1 Not Detected Not Detect. [facility] Influenza A H1-2009 PCR Not Detected Not Detect. [facility] Influenza A Subtype H3 Not Detected Not Detect. [facility] Influenza B PCR Not Detected Not Detect. [facility] Human metapneumovirus PCR Not Detected Not Detect. [facility] Rhino/Enterovirus PCR Not Detected Not Detect. [facility] Mycoplasma pneumoniae PCR Not Detected Not Detect. [facility] Parainfluenza 1 PCR Not Detected Not Detect. [facility] Parainfluenza 2 PCR Not Detected Not Detect. [facility] Parainfluenza 3 PCR Not Detected Not Detect. [facility] Parainfluenza 4 PCR Not Detected Not Detect. [facility] RSV PCR Not Detected Not Detect. [facility] Resp Panel NA Note See Note H [facility] Comment:All results must be correlated [...] assay is performed by Multiplexed PCR, utilizing [employer] Film Array. Swab 01/07/2025 2:21 PM EDT 01/07/2025 4:54 PM EDT Sisi Olsen MD LAB BLOOD ORDERABLES Fin al Result Performing Organization Address [facility] de Phone Number [facility] [address] [place] [phone] * POCT Rapid COVID Ag (01/07/2025 2:19 PM EDT) Rapid COVID Ag Negative Swab 01/07/2025 2:19 PM EDT Sisi Olsen MD POINT OF CARE TEST ENTER /EDIT ORDERABLES Final Result * Creatinine, Random Urine (06/25/2024 3:06 PM EST) [facility] Creatinine, Urine 78.85 mg/dL [facility] 06/25/2024 3:06 PM EST 06/25/2024 3:41 PM EST Generic External Data Provider LAB URINE ORDERAB LES Final Result Performing Organization Address [facility] Co de Phone Number [facility] [address] [place] [phone] * Lipid Panel, Standard (07/16/2022 10:33 AM EST) Pathologist [facility] Cholesterol, Total 115 <200 mg/dL [facility] [place] [employer] HDL Cholesterol 42 > OR = 40 mg/dL [facility] [place] [email or web address] [facility] Triglycerides 106 <150 mg/dL [facility] [place] [facility] LDL Cholesterol 54 mg/dL (calc) [employer] Comment: Reference range: <100 Desirable range <100 mg/dL for primary prevention; <70 mg/dL for patients with CHD or diabetic patients with > or = 2 CHD risk factors. LDL-C is now calculated using the Silvana calculation, which is a validated novel method providing better accuracy than the Friedewald equation in the estimation of LDL-C. Alvino GOMEZ et al. KIRSTEN. 2013;310(19): 8570-9396 (http://education.[facility]/faq/PYP362) Chol/HDLC Ratio 2.7 <5.0 (calc) [facility] [place] [employer] Non-HDL Cholesterol 73 <130 mg/dL (calc) [employer] Comment: For patients with diabetes plus 1 [...] BLOOD ORDERABLES Final Re sult [facility] [address], [place] [address] [facility] [place] [employer] [address] [facility], ([address]) [place] [address] from Last 3 Months or Most Recently Relevant to Health Maintenance Insurance MEDICARE [facility] STANDARD DENTAL-[facility] MEDICAID STAND ADULT Care Teams Dietary Services Manager Relationship Specialty Start Date End Date Milena Shoemaker MD [address] [place] [address] PCP - General Family Medicine 08/12/22 Maria G Sellers CNP Psychiatrist 02/23/23
--- OUTSIDE RECORDS SUMMARY | 2025-03-16 02:14 | XMS_ITS | Clinical Summary ---
Author Organization [facility] Address [address] [place] [address] Care Team Providers Care Panel Laminator Name Role Phone Milena Shoemaker MD Primary Care Provider [phone] Allergies Active Allergy Reactions Criticality Noted Date [...] drink = 0.6 oz pur e alcohol) [facility] Utilities Answer Date Recorded In the past 12 months has th e [employer], [employer], oil, or water Major Aide threatened to shut off services in your [...] place to sleep or slept in a snf (including now)? No 08/31/2023 Sex and Gender [...] - 99 mg/dL 09/16/2023 5:57 AM EDT [facility] Comment:Fasting: <100 mg/dL, Non-Fasting: <200 mg/dL (ADA 2005) Blood Urea Nitrogen (BUN) 23(H) 8 - 21 mg/dL 09/16/2023 5:57 AM EDT [facility] Creatinine 1.2 0.5 - 1.3 mg/dL 09/16/2023 5:57 AM EDT [facility] eGFR 74 >59 09/16/2023 5:57 AM EDT [facility] Comment:CKD-EPI (2020) in mL /min/1.73 sq meters. Sodium 138 136 - 145 mmol/L 09/16/2023 5:57 AM EDT [facility] Potassium 3.8 3.4 - 5.3 mmol/L 09/16/2023 5:57 AM EDT [facility] Chloride 101 98 - 107 mmol/L 09/16/2023 5:57 AM EDT [facility] CO2 27 22 - 33 mmol/L 09/16/2023 5:57 AM EDT [facility] Anion Gap 10 7 - 17 09/16/2023 5:57 AM EDT [facility] Calcium 8.8 8.7 - 10.5 mg/dL 09/16/2023 5:57 AM EDT [facility] BUN/Creatinine Ratio 19 10.0 - 25.0 Ratio 09/16/2023 5:57 AM EDT [facility] Blood specimen (specimen) (Plasma/Serum) 09/16/2023 5:08 AM EDT 09/16/2023 5:32 AM EDT Yareli Mccoy MD LAB BLOOD ORDERABLES [place] [address], [place] [address] from Last 3 Months or Most Recently Relevant to Health Maintenance Insurance MEDICARE PART A & [facility] MEDICARE PART A & [facility] Advance Directives * Full Code (Latest Code Status on File) Date Activated Date Inactivated Comments 08/30/2023 11:42 PM Question Answer Comments Decision Thoroughly Discussed with: Patient Care Teams Panel Laminator Relationship Specialty Start Date End Date Milena Shoemaker MD [address] [place] [address] PCP - General Family Medicine 08/30/23
--- OUTSIDE RECORDS SUMMARY | 2025-03-16 02:14 | XMS_ITS | Encounter Summary ---
Author Organization [employer] Address [address] [facility] 7t [place] [address] Care Team Providers Care Invasive Cardiovascular Technologist Name Role Phone Milena Shoemaker MD Primary Care Provider [phone] Reason for Visit * Reason Onset Date Comments Call Back Request 12/23/2023 Encounter Details Date Type Department Care Team ([facility] Contact Info) Description 12/23/2023 Telephone [facility] [address] [place] [address] Milena Shoemaker MD [address] [place] [phone] Call Back Request Social History Tobacco Use [...] increased to 75 mg and not to peanut picker the 100 mg. Pt verbalized understanding [...] 03/21/2025 11:30 AM EDT Office Visit [facility] [address] [place] [address] Milena Shoemaker MD [address] [place] [address] 04/10/2025 3:15 PM EDT Clinical Support [facility] [address] [place] [address] Luma Dalton, RN [address] [place], [place] [phone] documented as of this encounter Visit Diagnoses Not on filedocumented in this encounter Additional Health Concerns Assessment Noted Time PHQ-9 Depression Total Score: 7 07/15/19 23 1:17 PM EST documented as of this encounter Care Teams Invasive Cardiovascular Technologist Relationship Specialty Start Date End Date Milena Shoemaker MD [address] [place] [address] PCP - General Family Medicine 08/12/22 Maria G Sellers CNP Psychiatrist 02/23/23 documented as of this encounter
--- OUTSIDE RECORDS SUMMARY | 2025-03-16 02:14 | XMS_ITS | Encounter Summary ---
Author Organization [employer] Address [address] [place] [address] Care Team Providers Care Dean Of Admissions Name Role Phone Milena Shoemaker MD Primary Care Provider [phone] Reason for Visit * Reason Onset Date Comments Med Refill 10/03/2024 Encounter Details Date Type Department Care Team ([facility] st Contact Info) Description 10/03/2024 Refill [facility] [address] [place], [place] [phone] Milena Shoemaker MD [address] [place] [address] Diabetic polyneuropathy associated with type 2 diabetes [...] 03/21/2025 11:30 AM EDT Office Visit [facility] [address] [place] [address] Milena Shoemaker MD [address] [place] [address] 04/10/2025 3:15 PM EDT Clinical Support [facility] [address] [place] [address] Luma Dalton, LUIS [address] [place] [address] documented as of this encounter Visit Diagnoses Diagnosis Diabetic polyneuropathy associated with type 2 diabetes mellitus (HCC) documented in this encounter Additional Health Concerns Assessment Noted Time PHQ-9 Depression Total Score: 7 07/15/19 23 1:17 PM EST documented as of this encounter Care Teams Dean Of Admissions Relationship Specialty Start Date End Date Milena Shoemaker MD [address] [place] [address] PCP - General Family Medicine 08/12/22 Maria G Sellers CNP Psychiatrist 02/23/23 documented as of this encounter
--- OUTSIDE RECORDS SUMMARY | 2025-03-16 02:14 | XMS_ITS | Encounter Summary ---
Author Organization [facility] Address [address] [place] [address] Phone Care Team Providers Care Mixer Crane Operator Name Role Phone Milena Shoemaker MD Primary Care Provider [phone] Encounter Details Date Type Department Care Team (Late st Contact Info) Description 11/05/2022 Documentation Only [facility] [address] [place] [address] Milena Shoemaker MD [address] [place], [place] [phone] Social History Tobacco Use Types Packs/Day Years [...] on filedocumented in this encounter Care Teams Mixer Crane Operator Relationship Specialty Start Date End Date Milena Shoemaker MD [address] [place], [place] [phone] PCP - General Family Medicine 11/05/22 documented as of this encounter
--- OUTSIDE RECORDS SUMMARY | 2025-03-16 02:14 | XMS_ITS | Encounter Summary ---
Author Organization [employer] Address [address] [facility] 7t [place] [address] Care Team Providers Care Human Resources Hr Generalist Name Role Phone Milena Shoemaker MD Primary Care Provider [phone] Encounter Details Date Type Department Care Team ([facility] st Contact Info) Description 01/16/2025 Results Follow-Up [facility] [address] [place] [address] Sisi Olsen MD [address] [place] [address] POCT Rapid COVID Ag, Respiratory Viral Panel [...] Upcoming Encounters Date Type Department Care Team ([facility] st Contact Info) Description 03/21/2025 11:30 AM EDT Office Visit [facility] MED & PEDS [address] [place] [address] Milena Shoemaker MD [address] [place] [address] 04/10/2025 3:15 PM EDT Clinical Support [facility] MED & PEDS [address] [place] [address] Luma Dalton RN [address] [place] [address] documented as of this encounter Visit Diagnoses Not on filedocumented in this encounter Additional Health Concerns Assessment Noted Time PHQ-9 Depression Total Score: 8 12/18/19 4:39 PM EDT documented as of this encounter Care Teams Human Resources Hr Generalist Relationship Specialty Start Date End Date Milena Shoemaker MD [address] [place] [address] PCP - General Family Medicine 08/12/22 Maria G Sellers CNP Psychiatrist 02/23/23 documented as of this encounter
--- OUTSIDE RECORDS SUMMARY | 2025-03-16 02:14 | XMS_ITS | Encounter Summary ---
Author Organization [employer] Address [address] [facility] 7t [place] [address] Care Team Providers Care Government Relations Manager Name Role Phone Milena Shoemaker MD Primary Care Provider [phone] Reason for Visit * Reason Comments Med Refill Encounter Details Date Type Department Care Team ([facility] st Contact Info) Description 10/18/2023 Refill [facility] MED & PEDS [address] [place], [place] [phone] Milena Shoemaker MD [address] [place] [address] Diabetic ulcer of toe of left foot [...] Description 03/21/2025 11:30 AM EDT Office Visit [facility] MED & PEDS [address] [place] [address] Milena Shoemaker MD [address] [place] [address] 04/10/2025 3:15 PM EDT Clinical Support [facility] MED & PEDS [address] [place] [address] Luma Dalton, LUIS [address] [place] [address] documented as of this encounter Visit Diagnoses Diagnosis 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, limited to breakdown of skin (HCC) documented in this encounter Additional Health Concerns Assessment Noted Time PHQ-9 Depression Total Score: 7 07/15/19 23 1:17 PM EST documented as of this encounter Care Teams Government Relations Manager Relationship Specialty Start Date End Date Milena Shoemaker MD [address] [place] [address] PCP - General Family Medicine 08/12/22 Maria G Sellers CNP Psychiatrist 02/23/23 documented as of this encounter
--- OUTSIDE RECORDS SUMMARY | 2025-03-16 02:14 | XMS_ITS | Encounter Summary ---
Author Organization [employer] Address [address] [facility] 7 [place] [address] Care Team Providers Care Claims Manager Name Role Phone Milena Shoemaker MD Primary Care Provider [phone] Reason for Visit * Reason Onset Date Comments Med Refill 03/01/2024 Encounter Details Date Type Department Care Team ([facility] Contact Info) Description 03/01/2024 Telephone [facility] MED & PEDS [address] [place], [place] [phone] Milena Shoemaker MD [address] [place] [address] Med Refill Social History Tobacco Use Types [...] 10 MG tablet To be sent to: [facility] - [address] documented in this encounter Plan of Treatment Upcoming Encounters Date Type Department Care Team (Late st Contact Info) Description 03/21/2025 11:30 AM EDT Office Visit [facility] MED & PEDS [address] [place] [address] Milena Shoemaker MD [address] [place] [address] 04/10/2025 3:15 PM EDT Clinical Support [facility] MED & PEDS [address] [place] [address] Luma Dalton, LUIS [address] [place] [address] documented as of this encounter Visit Diagnoses Not on filedocumented in this encounter Additional Health Concerns Assessment Noted Time PHQ-9 Depression Total Score: 7 07/15/19 23 1:17 PM EST documented as of this encounter Care Teams Claims Manager Relationship Specialty Start Date End Date Milena Shoemaker MD [address] [place] [address] PCP - General Family Medicine 08/12/22 Maria G Sellers CNP Psychiatrist 02/23/23 documented as of this encounter
[2025-03-16 02:24] LABS: Glucose, Whole Blood 340 mg/dL (60-115)
--- NOTE | 2025-03-16 02:58 | PM.IMHP ---
History of Present Illness Date of Service: 03/16/25 Attending physician on admission: Anastasia Cottrell Chief Complaint: R foot infection Pt is a 54 yo male with PMH IDDMII, HTN, HLD, 08/2023 L4/L5 1.2 cm abscess paraspinal area requiring transfer to [facility], left big toe amputation, chronic Foot R diabetic ulcer, Asthma, COPD/tobacco dependence, CKD, BPH was BIBA to ED for right great toe pain and signs of infection along with significant lower back pain. Patient currently denies any chest pain, shortness of breath, nausea or vomiting. Patient has reported experiencing chills with diaphoresis or the last 2 weeks, but denies fever. Patient was admitted back in November of 2024 for similar problems. Patient states he wants the right big toe amputated. Patient had been discharged on Augmentin and doxycycline right toe ulcer and [facility] eventually discharged him. Then about 5 weeks ago patient noted increased swelling and redness involving the right great toe but did not seek treatment for this. Approximately 2-3 weeks ago patient decided to Mina the bottom of his right big toe and used a cuticle cutter which he rinsed in hot water and then cleansed with alcohol pads. The big toe area did not improve and now patient has swelling in the foot that radiates up through the mid arredondo area. Patient also has significant pain, at times is intolerable. 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 Patient is experiencing increased stressors overall caring for his son, obtaining his medications and does not have many family in the local area to depend on. Patient was started on vancomycin and Zosyn in the emergency department. Patient refused the vancomycin because this does cause pronounced vomiting. Vancomycin has been discontinued.Patient has had no symptoms since receiving his 1st dose Zosyn in the ED. In addition patient had an x-ray of the right foot which noted 1st digit distal tuft irregularity representing possible sequelae of infection or osteomyelitis. In addition severe degenerative changes at the navicular with the erosions and marginal osteophytes. Patient currently does not have leukocytosis and lactic acid level is normal sed rate and CRP are both elevated. Patient reports that the back pain is similar to the type of back pain he had when he was diagnosed with an L4-L5 abscess related to an infection in the left toe/foot which required amputation in the past. Patient does not meet criteria for sepsis on admission. Patient also noted to be experiencing hyperglycemia as he is a type 2 diabetic and has not had insulin for the last few days as he ran out. Patient was increasing his insulin on his own due to elevated levels which were likely were from his infection. Patient did not realize that infection can increase your blood sugar. Patient does not meet the criteria for DKA as his anion gap is closed and his CO2 is 28. PH on his blood gas was 7.45. Patient is started on regular insulin, IV fluids and we will continue Lantus and sliding scale insulin. Blood sugar has improved to 320 since treatment was started. Urinalysis noted for greater than 1000 glucose, trace ketones but negative for UTI. Review of Systems Review of Systems: Patient reporting 7/10 in the right lower extremity and 8/10 in his lower back. Patient denies any nausea or vomiting but has been having significant chills intermittently with diaphoresis at home. Patient has offered that he is refusing the vancomycin due to severe vomiting in the past. Patient is doing well on the Zosyn. Patient denies any chest pain, shortness of breath at rest, abdominal pain or nausea. Patient is not having any diarrhea or constipation Yes all other systems are reviewed and are negative [facility] Medical History (Updated 03/16/25 @ 04:18 by MADELIN Irizarry) Amputation of left great toe 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 lumbar spine Amputation toe (~08/2023) Ulcer of great toe Asthma Severe obesity Mood disorder MAURI (obstructive sleep apnea) Type 2 diabetes mellitus HLD (hyperlipidemia) HTN (hypertension) Cognitive capacity: Currently alert and orientated x3 Functional capacity: uses cane/walker Social History Household Members: Children Housing: Apartment Do you presently have visiting nurse or other home services: No Alcohol intake: never 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 Tobacco Use Status: Current everyday Tobacco user Tobacco use type: Cigarette Cigarette Packs Per Day: 20 Cigarettes Per Day: 400.0 e-Cigarette/Vaping Use: Never Used Second Hand Smoke Exposure: No Substance Use Type: Marijuana Advance Directives: Yes Advance Directives on File: Yes Advance Directives Date on File: 08/30/23 Do you have a plan to hurt others: No Plan service: No Ebola Risk: Travel/Contact With Anyone From Affected Area/s: No Has Patient Experienced Ebola Symptoms: No Meds Allergies Allergy/AdvReac Type Severity Reaction Status Date / Time coconut Allergy Rash Verified 03/16/25 00:24 naproxen (From NAPROSYN) AdvReac Severe STOMACH Verified 03/16/25 00:24 UPSET cefepime AdvReac Intermediate Rash Verified 03/16/25 00:24 lisinopril (LISINOPRIL) AdvReac Mild COUGH Verified 03/16/25 00:24 vancomycin AdvReac Vomiting Verified 03/16/25 00:24 SEAFOOD Allergy Unknown ANAPHYLAXIS Uncoded 03/16/25 00:24 Active Medications: Current Medications Acetaminophen (Acetaminophen 325 Mg Tablet) 650 mg PO Q6H PRN PRN Reason: Pain, Mild 1-3,fever,headache Acetaminophen (Acetaminophen 325 Mg Tablet) 650 mg PO Q6H PRN PRN Reason: Pain, Mild 1-3,fever,headache Albuterol/Ipratropium (Albuterol/Iprat 2.5/0.5mg 3 Ml Ampul.Neb) 3 ml INHALE Q4H PRN PRN Reason: Shortness of Breath/Wheezing Calcium Carbonate (Calcium Carbonate 750 Mg Tab.Chew) 750 mg PO Q4H PRN PRN Reason: Heartburn Calcium Carbonate (Calcium Carbonate 750 Mg Tab.Chew) 750 mg PO Q4H PRN PRN Reason: Heartburn Enoxaparin Sodium (Enoxaparin Sodium 40 Mg/0.4 Ml Syringe) 40 mg SUBCUT Q24H RANDALL Vancomycin HCl (Vancomycin/Ns) 2,000 mg in 500 mls @ 250 mls/hr IV ONCE ONE Stop: 03/16/25 04:06 Last Admin: 03/16/25 02:31 Dose: Not Given Sodium Chloride (Ns) 1,000 mls @ 125 mls/hr IVCONT .Q8H RANDALL Piperacillin Sod/Tazobactam (Sod 3.375 gm/ Sodium Chloride) 50 mls @ 100 mls/hr IV Q6H RANDALL Magnesium Hydroxide (Milk Of Magnesia 30 Ml Oral.Susp) 30 ml PO DAILY PRN PRN Reason: Constipation Magnesium Hydroxide (Milk Of Magnesia 30 Ml Oral.Susp) 30 ml PO DAILY PRN PRN Reason: Constipation Melatonin (Melatonin 3 Mg Tablet) 6 mg PO BEDTIME PRN PRN Reason: Insomnia Melatonin (Melatonin 3 Mg Tablet) 6 mg PO BEDTIME PRN PRN Reason: Insomnia Ondansetron HCl (Ondansetron Hcl 4 Mg/2 Ml Vial) 4 mg IVPUSH Q8H PRN PRN Reason: Nausea and Vomiting Pharmacy Consult (Consult Rx Vancomycin Dosing) 1 each MISCELLANE DAILY PRN PRN Reason: Consult order Polyethylene Glycol (Polyethylene Glycol 3350 17 Gm Powd.Pack) 17 gm PO DAILY PRN PRN Reason: Constipation Senna (Sennosides 8.6 Mg Tablet) 17.2 mg PO BEDTIME RANDALL Sodium Chloride (0.9 % Sodium Chloride Flush 3 Ml Syringe) 3 ml IVFLUSH QSHIFT RANDALL Sodium Chloride (0.9 % Sodium Chloride Flush 3 Ml Syringe) 3 ml IVFLUSH QSHIFT RANDALL Home Medications ?Medication ?Instructions ?Recorded ?Confirmed ?Last Taken ?Type albuterol sulfate 90 mcg/actuation 2 puff inhalation Q4H PRN Wheezing 08/15/23 11/22/24 08/29/23 History aerosol inhaler (Ventolin HFA) atorvastatin 80 mg tablet 80 mg PO BEDTIME 08/15/23 11/22/24 11/21/24 History baclofen 10 mg tablet 10 mg PO TID 08/15/23 11/22/24 11/22/24 History cetirizine 10 mg tablet 10 mg PO DAILY 08/15/23 11/22/24 11/22/24 History chlorthalidone 50 mg tablet 50 mg PO DAILY 08/15/23 11/22/24 11/22/24 History empagliflozin 25 mg tablet 25 mg PO DAILY 08/15/23 11/22/24 11/22/24 History (Jardiance) epinephrine 0.3 mg/0.3 mL 0.3 mg IM DIRECTED PRN Allergic 08/15/23 11/22/24 Unknown History injection, auto-injector Reaction fluticasone propionate 50 1 spray intranasal BID PRN Allergy 08/15/23 11/22/24 Unknown History mcg/actuation nasal Symptoms spray,suspension gabapentin 800 mg tablet 800 mg PO TID 08/15/23 11/22/24 11/22/24 History losartan 100 mg tablet 100 mg PO DAILY 08/15/23 11/22/24 11/22/24 History magnesium oxide 400 mg (241.3 mg 400 mg PO DAILY 08/15/23 11/22/24 11/22/24 History magnesium) tablet oxycodone 5 mg tablet 5 mg PO Q6H PRN severe pain 08/15/23 11/22/24 01/01/24 History tamsulosin 0.4 mg capsule 0.4 mg PO DAILY 08/15/23 11/22/24 11/22/24 History insulin glargine 100 unit/mL (3 90 unit subcut BEDTIME 08/29/23 11/22/24 11/19/24 History mL) subcutaneous pen (Basaglar KwikPen U-100 Insulin) acetaminophen 650 mg 650 mg PO Q8H PRN pain 01/02/24 11/22/24 Unknown History tablet,extended release hydralazine 100 mg tablet 100 mg PO TID 06/25/24 11/22/24 11/22/24 History labetalol 300 mg tablet 300 mg PO BID 06/25/24 11/22/24 11/22/24 History ondansetron HCl 4 mg tablet 4 mg PO Q8H PRN Nausea And Vomiting 06/25/24 11/22/24 Unknown History clotrimazole-betamethasone 1 1 appl topical BID PRN Rash 11/22/24 11/22/24 Unknown History %-0.05 % topical cream dulaglutide 3 mg/0.5 mL 3 mg subcut FR 11/22/24 11/22/24 3 Weeks Ago History subcutaneous pen injector ~11/01/24 ([facility]) insulin aspart U-100 100 unit/mL 10 unit subcut TIDAC 11/22/24 11/22/24 11/22/24 History subcutaneous solution (Novolog U-100 Insulin aspart) Physical Exam Vital Signs and Narrative: Vital Signs: Last Vital Signs Temp 98.5 F 03/16/25 00:21 Pulse 78 03/16/25 00:21 Resp 18 03/16/25 00:21 BP 118/75 03/16/25 00:21 Pulse Ox 96 03/16/25 00:21 O2 Del Method Room Air 03/16/25 00:21 BMI result Body Mass Index 39.9 Alert and orientated X3, able to give good history. Neuro: CN II-X11 intact, no deficits, visual acuity intact EYES: PERRLA, EOM intact, sclerae nonicteric, conjunctiva pink ENT: hearing intact, no issues with swallowing, uvula midline, lips moist, nares patent no epistaxis Cardiac: S1 S2 RRR, no murmur, no JVD, no edema in LLower ext, moderate edema right lower extremity secondary to infection Pulmonary: lungs clear to auscultation B Abdominal: BS active in all 4 quadrants, no guarding, tenderness, rebounding MSK: strength 5/5 upper and 4/5 lower extremities : no CVA tenderness no bladder distension Extremities: no edema in L lower extremities, right big toe swollen, discolored, with 2 openings 1 on top and 1 on the bottom with a noted ulcer that was recently lanced by patient Psych: mood stable/ overwhelmed, judgement and insight good Skin: Noted infection right big toe with diabetic foot ulcer on the bottom of the R big toe Results Labs 03/16/25 00:59 03/16/25 00:59 Labs: Laboratory Results - last 24 hr 03/16/25 03/16/25 03/16/25 00:38 00:59 01:16 MCV 80.5 MCH 28.1 MCHC 34.8 RDW 13.5 Plt Count 296 MPV 9.3 L Immature Gran % (Auto) 0.7 H Neut % (Auto) 70.8 Lymph % (Auto) 15.0 L Broome % (Auto) 10.2 Eos % (Auto) 2.4 Baso % (Auto) 0.9 Lymph # (Auto) 1.6 Broome # (Auto) 1.1 Eos # (Auto) 0.3 Baso # (Auto) 0.1 Abs Immat Gran (auto) 0.07 H Absolute Neuts (auto) 7.5 Absolute Nucleated RBC 0.000 Nucleated RBC % (auto) 0.0 ESR 84 H VBG pH VBG pCO2 VBG pO2 VBG HCO3 VBG O2 Saturation VBG Base Excess Anion Gap 15 Estim Creat Clear Calc 107.3 Estimated GFR > 60 POC Glucose > 600 H* Random Glucose 678 H* Lactic Acid 1.2 Calcium 8.5 D Magnesium 2.3 Total Bilirubin 0.6 AST 26 ALT 12 Alkaline Phosphatase 132 H C-Reactive Protein 12.15 H Total Protein 7.3 Albumin 3.2 L Urine Color Yellow Urine Appearance Clear Urine pH 5.5 Ur Specific Burton >= 1.030 H Urine Protein 100 (2+) H Urine Glucose (UA) >=1000 H Urine Ketones Trace Urine Blood Trace H Urine Nitrite Negative Ur Leukocyte Esterase Negative Urine RBC 3-5 H Urine WBC 0-5 Ur Squamous Epith Cells 0-2 Urine Bacteria None Seen Hyaline Casts 0-2 03/16/25 03/16/25 01:25 02:19 MCV MCH MCHC RDW Plt Count MPV Immature Gran % (Auto) Neut % (Auto) Lymph % (Auto) Broome % (Auto) Eos % (Auto) Baso % (Auto) Lymph # (Auto) Broome # (Auto) Eos # (Auto) Baso # (Auto) Abs Immat Gran (auto) Absolute Neuts (auto) Absolute Nucleated RBC Nucleated RBC % (auto) ESR VBG pH 7.45 H VBG pCO2 36 VBG pO2 103 VBG HCO3 25 VBG O2 Saturation 99.0 VBG Base Excess 1.9 Anion Gap Estim Creat Clear Calc Estimated GFR POC Glucose 340 H Random Glucose Lactic Acid Calcium Magnesium Total Bilirubin AST ALT Alkaline Phosphatase C-Reactive Protein Total Protein Albumin Urine Color Urine Appearance Urine pH Ur Specific Burton Urine Protein Urine Glucose (UA) Urine Ketones Urine Blood Urine Nitrite Ur Leukocyte Esterase Urine RBC Urine WBC Ur Squamous Epith Cells Urine Bacteria Hyaline Casts ECG Attestation: I personally reviewed and interpreted this ECG as follows: Prior ECG tracings: not available for review Imaging Radiologist's Impressions: Foot x-ray Findings: Talus and subtalar articulations are normal. Calcaneus is normal. Moderate talonavicular degenerative change . Severe joint space narrowing between the navicular and cuneiforms with erosive changes. There is soft tissue stranding. Calcaneocuboid alignment is normal. Metatarsophalangeal articulations are normally aligned. There is diffuse swelling of the 1st digit. Irregular changes at the distal phalanx tuft may represent sequelae of infection. No abnormal soft tissue calcification. Remainder of phalanges and metatarsals are normal. IMPRESSION: 1. First digit distal tuft irregularity may represent sequelae of infection or osteomyelitis. 2. Severe degenerative changes at the navicular with erosions and marginal osteophytes. This may represent degenerative change, inflammation, or sequelae of infection. Assessment and Plan (1) Diabetic foot ulcer: Qualifiers: Diabetes mellitus type: type 2 Diabetic foot ulcer location: toe Laterality: right Non-pressure ulcer stage: unspecified non-pressure ulcer stage Qualified Code(s): E11.621 - Type 2 diabetes mellitus with foot ulcer; L97.519 - Non-pressure chronic ulcer of other part of right foot with unspecified severity Status: Acute (2) Toe infection: Status: Acute (3) Hyperglycemia: Status: Acute Plan Pt is a 54 yo male with PMH IDDMII, HTN, HLD, 08/2023 L4/L5 1.2 cm abscess paraspinal area requiring transfer to [facility], left big toe amputation, chronic Foot R diabetic ulcer, Asthma, COPD/tobacco dependence, CKD, BPH was BIBA to ED for right great toe pain and signs of infection along with significant lower back pain. Patient currently denies any chest pain, shortness of breath, nausea or vomiting. Patient has reported experiencing chills with diaphoresis or the last 2 weeks, but denies fever. Patient was admitted back in November of 2024 for similar problems. Pt states he wants the R big toe amputated. Patient does not meet criteria for sepsis on admission. Right Toe infeciton with possible OM MRI pending Xray suggests OM General Surgery Consulted Pt on Zosyn, refused Vancomycin due to adverse effect of vomiting, added linezolid (rec over doxy for OM via literature) Infectious Disease consulted Blood cultures pending Pt states he wants the toe amputated, deferred to surgery Severe lumbar back pain with history of L4/L5 abscess (2023 - patient required transfer to [facility]) MRI of lumbar spine pending Dilaudid for back pain Diabetic Foot Ulcer (R toe) Wound care consulted Patient Lanced this area on his own about proximally 3 weeks ago using a cuticle cutter, hot water and alcohol pads Hyperglycemia/ IDDMII Pt was using more insulin than usual for elevated levels (secondary to infection) and ran out No DKA noted IVF provided, BG trending down SSI Diabetic diet Lantus 60U HS, lowered normal dose due to risk of hypoglycemia HTN BP stable currently Avoid hypotension MED REC PENDING, resume home meds if BP remains stable and can tolerate amlodipine, labetolol, losartan, chlorthalidone Low Salt Diet HLD COntinue Atorvastatin LFTs stable 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) Current renal fx not stageable with Cr CL 107, GFR > 60 +2 proteinuria noted Monitor renal fx daily Avoid nephrotoxic meds and hypotension Right renal mass CT of the abdomen and pelvis is pending Patient states he believes he was seen by a specialist as an outpatient for follow-up and nothing needed to be done including biopsy Patient admits he may not be the best historian when it comes to his previous healthcare regimen BPH Continue Tamsulosin UA neg for UTI Tobacco Dependence (2PPD) Nicotine patch ordered Pt counseled on the benefits of smoking cessation DVT Prophylaxis: Lovenox MED REC PENDING FULL CODE Quality Stroke Does the patient have a stroke diagnosis?: No Reason for No Anti-thrombotic by Day Two: N/A - Med Ordered VTE Prior VTE?: No VTE Risk Level:: Medical - moderate - high VTE Device Contraindication: Treatment Not Indicated VTE Drug Contraindication: N/A - Med Ordered
--- NOTE | 2025-03-16 03:19 | PC.NURSE ---
Pt to CT
[2025-03-16 03:23] LABS: Glucose, Whole Blood 334 mg/dL (60-115)
[2025-03-16] MEDS: Insulin Glargine,Hum.rec.anlog 100 UNIT/ML 10 ML VIAL 40 UNIT SUBCUT (03:38)
--- NOTE | 2025-03-16 04:31 | PC.NURSE ---
Pt reporting needing to use his inhaler at this time. States he he feels as though he is wheezing. Provider made aware and plan for CXR and add on BNP. However, no wheezes noted during auscultation. CXR deferred at this time per provider. Pt denies any other needs at this time.
[2025-03-16 04:50] LABS: NT Pro B Type Natriuretic Pept 443.2 pg/mL (<300)
--- NOTE | 2025-03-16 05:17 | HO.NURTONUR ---
Mr Saini is a 54 Y.O. male coming from home, brought in by EMS for evaluation of right great toe pain and swelling that became worse after he lanced a sore on the bottom of the toe 2 weeks ago. Pt also reporting pain that radiates up his right arredondo along with some back pain. Hx of Type 2 DM, was using more insulin than normal for elevated levels and ran out. Blood glucose was reading 'HI' for EMS and upon arrival. Pt states he has only been able to keep orange juice and milk down at home the past 2 days. Pt with hx of left great toe infection and developed a L4/L5 spinal abscess in 2023. Toe XR here showed infection with possibility of osteomyelitis. Plan to receive MRI of foot and spine during this admission as a precaution. Pt also with hx of a right renal mass. CT abdomen/pelvis results are pending. Received 10 units regular insulin, 2000 ml Nacl bolus, 0.5 mg dilaudid, 15 mg Toradol, Zosyn, Lovenox coverage, 40 units Lantus (regular home dose is 60 units, and ordered for tomorrow) and Linezolid while in ED. Blood cultures pending. #20 PIV to left forearm. 100 ml/hr Nacl maintenance infusing. Alert and oriented x4 but is not the greatest historian. Uses urinal independently. Besides some redness that was noted to the patients chest prior to abx administration and the patients right foot and right great toe, no skin issues identified.
[2025-03-16] MEDS: Linezolid/D5W 600 MG/300 ML PIGGYBACK 300 MG IV ×2 (05:30→17:50)
[2025-03-16 06:31] LABS: Imm Gran Abs Auto 0.08 X10*3/uL (0.00-0.03); Imm Gran Pct Auto 0.8 % (0.0-0.4); MANUAL DIFF FLAG SCAN; NRBC Abs Auto 0.000 X10*3/uL (0.0-0.012); NRBC Pct Auto 0.0 /100WBC (0.0-0.2); PLT CLUMP 1; SCAN SMEAR FLAG 1
[2025-03-16 06:34] LABS: Hematocrit 36.4 % (42.0-52.0); Hemoglobin 12.0 g/dl (14.0-18.0); Lymphocytes Absolute Auto 2.2 X10*3/uL (1.2-4.9); Mean Corpuscular HGB Conc 33.0 g/dl (31.0-36.0); Mean Corpuscular Hemoglobin 27.5 pg (27.0-33.0); Mean Corpuscular Volume 83.5 fL (80.0-98.0); Red Blood Count 4.36 X10*6/uL (4.60-5.80)
[2025-03-16 06:42] LABS: White Blood Count 9.5 X10*3/uL (4.8-10.8)
[2025-03-16 06:43] LABS: Platelet Count 294 X10*3/uL (160-400)
[2025-03-16 06:53] LABS: Alanine Aminotransferase 13 U/L (0-40); Albumin Level 2.8 g/dL (3.5-5.0); Alkaline Phosphatase 105 U/L (39-117); Anion Gap 11 (12-20); Aspartate Amino Transferase 25 U/L (5-37); Blood Urea Nitrogen 27 mg/dL (9-16); Calcium 8.1 mg/dL (8.4-10.2); Carbon Dioxide 27 mmol/L (22-29); Chloride 99 mmol/L (96-108); Creatinine Clr Calc Pharmacy 114.0; Estimated Glomerular Filt Rate > 60; Potassium 4.0 mmol/L (3.3-5.1); Sodium 133 mmol/L (135-145); Total Protein 6.4 g/dL (6.5-8.0)
[2025-03-16 06:59] LABS: Glucose, Whole Blood 384 mg/dL (60-115)
--- NOTE | 2025-03-16 07:04 | PC.NURSE ---
Report to Jessy SMITH for continued care.
--- NOTE | 2025-03-16 07:52 | P.PNIM_ITS ---
Subjective Subjective Date of Service: 03/16/25 Review of Systems Review of Systems: Yes all other systems are reviewed and are negative Physical Exam 2 Vital Signs: Vital Signs: Last Vital Signs Temp 98.1 F 03/16/25 06:58 Pulse 68 03/16/25 06:58 Resp 18 03/16/25 06:58 BP 135/64 03/16/25 06:58 Pulse Ox 96 03/16/25 06:58 O2 Del Method Room Air 03/16/25 06:58 BMI result Body Mass Index 39.9 Objective Data Active Medications Acetaminophen (Acetaminophen 325 Mg Tablet) 650 mg PO Q6H PRN PRN Reason: Pain, Mild 1-3,fever,headache Albuterol/Ipratropium (Albuterol/Iprat 2.5/0.5mg 3 Ml Ampul.Neb) 3 ml INHALE Q4H PRN PRN Reason: Shortness of Breath/Wheezing Calcium Carbonate (Calcium Carbonate 750 Mg Tab.Chew) 750 mg PO Q4H PRN PRN Reason: Heartburn Dextrose (Dextrose 50 % 25 Gm/50 Ml Syringe) 25 gm IVPUSH Q15M PRN; Protocol PRN Reason: per Hypoglycemia Standing Ord. Enoxaparin Sodium (Enoxaparin Sodium 40 Mg/0.4 Ml Syringe) 40 mg SUBCUT Q24H [facility] Last Admin: 03/16/25 03:37 Dose: 40 mg Documented By: CRISTINA Glucose (Glucose Gel 15 Gm Gel..Gram.) 15 gm PO Q15M PRN; Protocol PRN Reason: per Hypoglycemia Standing Ord. Guaifenesin (Guaifenesin 200 Mg/10 Ml 10 Ml Liquid) 10 ml PO Q4H PRN PRN Reason: Cough Hydromorphone HCl (Hydromorphone Hcl 1 Mg/Ml Syringe) 1 mg IVPUSH Q3H PRN; Protocol PRN Reason: Pain, Severe (Pain Scale 7-10) Last Admin: 03/16/25 06:46 Dose: 1 mg Documented By: CRISTINA Sodium Chloride (Ns) 1,000 mls @ 100 mls/hr IVCONT .Q10H [facility] Last Infusion: 03/16/25 04:54 Dose: 100 mls/hr Documented By: CRISTINA Piperacillin Sod/Tazobactam (Sod 3.375 gm/ Sodium Chloride) 50 mls @ 100 mls/hr IV Q6H [facility] Linezolid (Zyvox/D5w) 600 mg in 300 mls @ 300 mls/hr IV Q12H [facility] Insulin Glargine (Insulin Glargine,Hum.Rec.Anlog 100 Unit/Ml 10 Ml Vial) 60 unit SUBCUT BEDTIME [facility] Insulin Human Lispro (Insulin Lispro 100 Unit/Ml 3 Ml Vial) 0 unit SUBCUT QIDACHS [facility]; Protocol Last Admin: 03/16/25 07:04 Dose: 12 unit Documented By: VERENICE Magnesium Hydroxide (Milk Of Magnesia 30 Ml Oral.Susp) 30 ml PO DAILY PRN PRN Reason: Constipation Melatonin (Melatonin 3 Mg Tablet) 6 mg PO BEDTIME PRN PRN Reason: Insomnia Nicotine (Nicotine 21 Mg Patch.Td24) 21 mg TRANSDERMA DAILY [facility] Ondansetron HCl (Ondansetron Hcl 4 Mg/2 Ml Vial) 4 mg IVPUSH Q8H PRN PRN Reason: Nausea and Vomiting Polyethylene Glycol (Polyethylene Glycol 3350 17 Gm Powd.Pack) 17 gm PO DAILY PRN PRN Reason: Constipation Senna (Sennosides 8.6 Mg Tablet) 17.2 mg PO BEDTIME [facility] Sodium Chloride (0.9 % Sodium Chloride Flush 3 Ml Syringe) 3 ml IVFLUSH [facility] Last Admin: 03/16/25 07:38 Dose: Not Given Documented By: VERENICE Non-Admin Reason: IV Running Sodium Chloride (0.9 % Sodium Chloride Flush 3 Ml Syringe) 3 ml IVFLUSH [facility] Last Admin: 03/16/25 07:38 Dose: Not Given Documented By: VERENICE Non-Admin Reason: IV Running Labs 03/16/25 05:44 03/16/25 05:44 Labs: Laboratory Results - last 24 hr 03/16/25 03/16/25 03/16/25 00:38 00:59 01:16 MCV 80.5 MCH 28.1 MCHC 34.8 RDW 13.5 Plt Count 296 MPV 9.3 L Immature Gran % (Auto) 0.7 H Neut % (Auto) 70.8 Lymph % (Auto) 15.0 L [place] % (Auto) 10.2 Eos % (Auto) 2.4 Baso % (Auto) 0.9 Lymph # (Auto) 1.6 [place] # (Auto) 1.1 Eos # (Auto) 0.3 Baso # (Auto) 0.1 Abs Immat Gran (auto) 0.07 H Absolute Neuts (auto) 7.5 Absolute Nucleated RBC 0.000 Nucleated RBC % (auto) 0.0 Smear Tech's Comments ESR 84 H VBG pH VBG pCO2 VBG pO2 VBG HCO3 VBG O2 Saturation VBG Base Excess Anion Gap 15 Estim Creat Clear Calc 107.3 Estimated GFR > 60 POC Glucose > 600 H* Random Glucose 678 H* Lactic Acid 1.2 Calcium 8.5 D Magnesium 2.3 Total Bilirubin 0.6 AST 26 ALT 12 Alkaline Phosphatase 132 H C-Reactive Protein 12.15 H NT-Pro-B Natriuret Pep 443.2 H Total Protein 7.3 Albumin 3.2 L TSH 0.82 Urine Color Yellow Urine Appearance Clear Urine pH 5.5 Ur Specific C[place]bert >= 1.030 H Urine Protein 100 (2+) H Urine Glucose (UA) >=1000 H Urine Ketones Trace Urine Blood Trace H Urine Nitrite Negative Ur Leukocyte Esterase Negative Urine RBC 3-5 H Urine WBC 0-5 Ur Squamous Epith Cells 0-2 Urine Bacteria None Seen Hyaline Casts 0-2 03/16/25 03/16/25 03/16/25 01:25 02:19 03:19 MCV MCH MCHC RDW Plt Count MPV Immature Gran % (Auto) Neut % (Auto) Lymph % (Auto) [place] % (Auto) Eos % (Auto) Baso % (Auto) Lymph # (Auto) [place] # (Auto) Eos # (Auto) Baso # (Auto) Abs Immat Gran (auto) Absolute Neuts (auto) Absolute Nucleated RBC Nucleated RBC % (auto) Smear Tech's Comments ESR VBG pH 7.45 H VBG pCO2 36 VBG pO2 103 VBG HCO3 25 VBG O2 Saturation 99.0 VBG Base Excess 1.9 Anion Gap Estim Creat Clear Calc Estimated GFR POC Glucose 340 H 334 H Random Glucose Lactic Acid Calcium Magnesium Total Bilirubin AST ALT Alkaline Phosphatase C-Reactive Protein NT-Pro-B Natriuret Pep Total Protein Albumin TSH Urine Color Urine Appearance Urine pH Ur Specific C[place]bert Urine Protein Urine Glucose (UA) Urine Ketones Urine Blood Urine Nitrite Ur Leukocyte Esterase Urine RBC Urine WBC Ur Squamous Epith Cells Urine Bacteria Hyaline Casts 03/16/25 03/16/25 05:44 06:54 MCV 83.5 MCH 27.5 MCHC 33.0 RDW 13.4 Plt Count 294 MPV 9.6 Immature Gran % (Auto) 0.8 H Neut % (Auto) 60.1 Lymph % (Auto) 23.5 [place] % (Auto) 10.4 Eos % (Auto) 4.2 H Baso % (Auto) 1.0 Lymph # (Auto) 2.2 [place] # (Auto) 1.0 Eos # (Auto) 0.4 Baso # (Auto) 0.1 Abs Immat Gran (auto) 0.08 H Absolute Neuts (auto) 5.7 Absolute Nucleated RBC 0.000 Nucleated RBC % (auto) 0.0 Smear Tech's Comments VERIFIED ESR VBG pH VBG pCO2 VBG pO2 VBG HCO3 VBG O2 Saturation VBG Base Excess Anion Gap 11 L Estim Creat Clear Calc 114.0 Estimated GFR > 60 POC Glucose 384 H* Random Glucose 369 H* Lactic Acid Calcium 8.1 L Magnesium Total Bilirubin 0.5 AST 25 ALT 13 Alkaline Phosphatase 105 C-Reactive Protein NT-Pro-B Natriuret Pep Total Protein 6.4 L Albumin 2.8 L TSH Urine Color Urine Appearance Urine pH Ur Specific C[place]bert Urine Protein Urine Glucose (UA) Urine Ketones Urine Blood Urine Nitrite Ur Leukocyte Esterase Urine RBC Urine WBC Ur Squamous Epith Cells Urine Bacteria Hyaline Casts Assessment and Plan Plan 54 yo male with PMH IDDMII, HTN, HLD, 08/2023 L4/L5 1.2 cm abscess paraspinal area requiring transfer to [facility], left big toe amputation, chronic Foot R diabetic ulcer, Asthma, COPD/tobacco dependence, CKD, BPH was BIBA to ED for right great toe pain and signs of infection along with significant lower back pain. Patient currently denies any chest pain, shortness of breath, nausea or vomiting. Patient has reported experiencing chills with diaphoresis or the last 2 weeks, but denies fever. Patient was admitted back in November of 2024 for similar problems. Pt states he wants the R big toe amputated. Patient does not meet criteria for sepsis on admission. Right Toe infeciton with possible OM MRI pending Xray suggests OM General Surgery Consulted Pt on Zosyn, refused Vancomycin due to adverse effect of vomiting, added linezolid (rec over doxy for OM via literature) Infectious Disease consulted Blood cultures pending Pt states he wants the toe amputated, deferred to surgery Severe lumbar back pain with history of L4/L5 abscess (2023 - patient required transfer to [facility]) MRI of lumbar spine pending Dilaudid for back pain Diabetic Foot Ulcer (R toe) Wound care consulted Patient Lanced this area on his own about proximally 3 weeks ago using a cuticle cutter, hot water and alcohol pads Hyperglycemia/ IDDMII Pt was using more insulin than usual for elevated levels (secondary to infection) and ran out No DKA noted IVF provided, BG trending down SSI Diabetic diet Lantus 60U HS, lowered normal dose due to risk of hypoglycemia HTN BP stable currently Avoid hypotension MED REC PENDING, resume home meds if BP remains stable and can tolerate amlodipine, labetolol, losartan, chlorthalidone Low Salt Diet HLD COntinue Atorvastatin LFTs stable 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) Current renal fx not stageable with Cr CL 107, GFR > 60 +2 proteinuria noted Monitor renal fx daily Avoid nephrotoxic meds and hypotension Right renal mass CT of the abdomen and pelvis is pending Patient states he believes he was seen by a specialist as an outpatient for follow-up and nothing needed to be done including biopsy Patient admits he may not be the best historian when it comes to his previous healthcare regimen BPH Continue Tamsulosin UA neg for UTI Tobacco Dependence (2PPD) Nicotine patch ordered Pt counseled on the benefits of smoking cessation DVT Prophylaxis: Lovenox Quality Stroke Does the patient have a stroke diagnosis?: No Reason for No Anti-thrombotic by Day Two: N/A - Med Ordered VTE Prior VTE?: No VTE Risk Level:: Medical - moderate - high VTE Device Contraindication: Treatment Not Indicated VTE Drug Contraindication: N/A - Med Ordered
--- NOTE | 2025-03-16 08:00 | PC.NURSE ---
Provider had ordered 8 units of insulin at same time as breakfast POC was being checked. Updated on POC with breakfast and order to follow the sliding scale protocol. 12 units given, the additional 8 units held. Provider aware of POC. Pt did eat his breakfast. Pt is now resting with CPAP on.
[2025-03-16 08:24] LABS: Glucose, Whole Blood 322 mg/dL (60-115)
--- NOTE | 2025-03-16 08:37 | PC.NURSE ---
Provider alerted about recheck BGL. No new orders. ABX and NS infusing. Pt resting comfortably with CPAP on trying to get some rest.
[2025-03-16 09:08] LABS: Glucose, Whole Blood 234 mg/dL (60-115)
[2025-03-16] MEDS: Nicotine 21 MG PATCH.TD24 TRANSDERMA (09:11)
--- NOTE | 2025-03-16 09:41 | PHA.MEDREC ---
Pharmacy Consult ? Medication Reconciliation Pharmacy has completed the medication reconciliation. Patient with list on phone, noted he takes his Mounjaro on but will not have it brought in. No longer takes Trulicity d/t Mounjaro rx. Noted he gets several bottles of some prescriptions at a time so that's why the claims seem outdated. Has not been able to use oral meds in days irma to nausea.
[2025-03-16 11:19] LABS: Glucose, Whole Blood 225 mg/dL (60-115)
--- NOTE | 2025-03-16 11:42 | P.EN_ITS ---
Event Note Date of Service: 03/16/25 Event Note: patient is seen and examined by hospitalist service this morning seen and examined again no new c/o. physical exam and assessment an plan as per h&P. Right Toe infeciton with possible OM-continue antibiotics , blood cultures pending from previous chart review 12/05 dc summary-acute on chronic lower back pain:upon review on chart pt has long history of chronic back pain. has [place]o [place] [facility] [place] He is on chronic narcotics [facility]. 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 Patient says that he has chronic back pain-no new change, walking better, no urinary or bowel incontinence. Strength on the lower extremity seems fine. mri during this admission negative foot mri done /pending dm with hyperglycemia: insulin regimen, fs with sliding scael coverage. ?Right renal mass: on ct abd 11/22-Right renal mass CT of the abdomen and pelvis is done/ pending Time Spent With Patient Time: Total time managing care of this patient today ____ minutes.
--- NOTE | 2025-03-16 16:00 | MHC.CM.PN ---
PT REPORTS HE LIVES WITH HIS 13 YO SON AND IS INDEPENDENT WITH CARE HE HAS A CPAP FOR DME AND NO SERVICES HCP ON FILE PCP: [facility] IMM DELIVERED DCP: HOME VIA PRIVATE TRANSPORT VS SHUTTLE
[2025-03-16 16:13] LABS: Glucose, Whole Blood 240 mg/dL (60-115)
--- NOTE | 2025-03-16 17:48 | PM.CNGS ---
History of Present Illness Consult details Consult date: 03/16/25 Narrative: Pt is a 54 yo male with PMH IDDMII, HTN, HLD, 08/2023 L4/L5 1.2 cm abscess paraspinal area requiring transfer to [facility], left big toe amputation, chronic Foot R diabetic ulcer, Asthma, COPD/tobacco dependence, CKD, BPH was BIBA to ED for right great toe pain and signs of infection along with significant lower back pain. Pt comes in now because had a wound on the bottom of the right toe and he lanced it himself with a cuticle clipper which he had cleaned himself a few weeks ago - since then the area has opened up and got worse and he now comes in concerned for need for toe ampuation. He has had increasing blood gluocse difficult to control. No issues with vascular as has strong palpable pulses bilaterally. Review of Systems Review of Systems: Yes all other systems are reviewed and are negative PMFSH Past Medical History Medical History (Updated 03/16/25 @ 17:30 by DAPHNIE Ballard) Amputation of left great toe 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 lumbar spine Amputation toe (~08/2023) Ulcer of great toe Asthma Severe obesity Mood disorder MAURI (obstructive sleep apnea) Type 2 diabetes mellitus HLD (hyperlipidemia) HTN (hypertension) Social History Social History Household Members: Children Housing: Apartment Do you presently have visiting nurse or other home services: No Alcohol intake: never 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 Tobacco Use Status: Current everyday Tobacco user Tobacco use type: Cigarette Cigarette Packs Per Day: 20 Cigarettes Per Day: 400.0 e-Cigarette/Vaping Use: Never Used Second Hand Smoke Exposure: No Substance Use Type: Marijuana Advance Directives Date on File: 08/30/23 service: No Travel History Ebola Risk: Travel/Contact With Anyone From Affected Area/s: No Has Patient Experienced Ebola Symptoms: No Meds Allergies Allergy/AdvReac Type Severity Reaction Status Date / Time coconut Allergy Rash Verified 03/16/25 00:24 naproxen (From NAPROSYN) AdvReac Severe STOMACH Verified 03/16/25 00:24 UPSET cefepime AdvReac Intermediate Rash Verified 03/16/25 00:24 lisinopril (LISINOPRIL) AdvReac Mild COUGH Verified 03/16/25 00:24 vancomycin AdvReac Vomiting Verified 03/16/25 00:24 SEAFOOD Allergy Unknown ANAPHYLAXIS Uncoded 03/16/25 00:24 Active Medications: Current Medications Acetaminophen (Acetaminophen 325 Mg Tablet) 650 mg PO Q6H PRN PRN Reason: Pain, Mild 1-3,fever,headache Albuterol Sulfate (Albuterol Sulfate 90 Mcg 8 Gm Inhaler) 2 puff INHALE Q4H PRN PRN Reason: Wheezing Albuterol/Ipratropium (Albuterol/Iprat 2.5/0.5mg 3 Ml Ampul.Neb) 3 ml INHALE Q4H PRN PRN Reason: Shortness of Breath/Wheezing Amlodipine Besylate (Amlodipine Besylate 5 Mg Tablet) 5 mg PO DAILY [facility]; Protocol Last Admin: 03/16/25 15:18 Dose: 5 mg Atorvastatin Calcium (Atorvastatin Calcium 80 Mg Tablet) 80 mg PO BEDTIME RANDALL Baclofen (Baclofen 10 Mg Tablet) 10 mg PO TID [facility] Last Admin: 03/16/25 15:18 Dose: 10 mg Calcium Carbonate (Calcium Carbonate 750 Mg Tab.Chew) 750 mg PO Q4H PRN PRN Reason: Heartburn Last Admin: 03/16/25 12:14 Dose: 750 mg Dextrose (Dextrose 50 % 25 Gm/50 Ml Syringe) 25 gm IVPUSH Q15M PRN; Protocol PRN Reason: per Hypoglycemia Standing Ord. Docusate Sodium (Docusate Sodium 100 Mg Capsule) 100 mg PO BID [facility] Last Admin: 03/16/25 15:18 Dose: 100 mg Empagliflozin (Empagliflozin 25 Mg Tablet) 25 mg PO DAILY [facility] Last Admin: 03/16/25 15:18 Dose: 25 mg Enoxaparin Sodium (Enoxaparin Sodium 40 Mg/0.4 Ml Syringe) 40 mg SUBCUT Q24H [facility] Last Admin: 03/16/25 03:37 Dose: 40 mg Epinephrine (Epinephrine 1 Mg/Ml Vial) 0.3 mg IM DAILY PRN PRN Reason: Allergic Reaction Fluticasone Propionate (Fluticasone Propionate Nasal 16 Gm [place]) 1 spray NOSTRIL-B BID PRN PRN Reason: Allergy Symptoms Gabapentin (Gabapentin 400 Mg Capsule) 800 mg PO TID [facility] Last Admin: 03/16/25 15:18 Dose: 800 mg Glucose (Glucose Gel 15 Gm Gel..Gram.) 15 gm PO Q15M PRN; Protocol PRN Reason: per Hypoglycemia Standing Ord. Guaifenesin (Guaifenesin 200 Mg/10 Ml 10 Ml Liquid) 10 ml PO Q4H PRN PRN Reason: Cough Hydralazine HCl (Hydralazine Hcl 50 Mg Tablet) 100 mg PO TID [facility]; Protocol Last Admin: 03/16/25 15:18 Dose: 100 mg Hydrochlorothiazide (Hydrochlorothiazide 50 Mg Tablet) 50 mg PO DAILY R[facility]ALL Hydromorphone HCl (Hydromorphone Hcl 1 Mg/Ml Syringe) 1 mg IVPUSH Q3H PRN; Protocol PRN Reason: Pain, Severe (Pain Scale 7-10) Last Admin: 03/16/25 15:19 Dose: 1 mg Sodium Chloride (Ns) 1,000 mls @ 100 mls/hr IVCONT .Q10H [facility] Last Admin: 03/16/25 11:51 Dose: 100 mls/hr Piperacillin Sod/Tazobactam (Sod 3.375 gm/ Sodium Chloride) 50 mls @ 100 mls/hr IV Q6H [facility] Last Infusion: 03/16/25 14:52 Dose: Infused Linezolid (Zyvox/D5w) 600 mg in 300 mls @ 300 mls/hr IV Q12H [facility] Insulin Glargine (Insulin Glargine,Hum.Rec.Anlog 100 Unit/Ml 10 Ml Vial) 60 unit SUBCUT BEDTIME [facility] Insulin Human Lispro (Insulin Lispro 100 Unit/Ml 3 Ml Vial) 0 unit SUBCUT QIDACHS [facility]; Protocol Last Admin: 03/16/25 17:01 Dose: 6 unit Labetalol HCl (Labetalol Hcl 100 Mg Tablet) 300 mg PO BID [facility] Loratadine (Loratadine 10 Mg Tablet) 10 mg PO DAILY [facility] Last Admin: 03/16/25 15:18 Dose: 10 mg Losartan Potassium (Losartan Potassium 50 Mg Tablet) 100 mg PO DAILY [facility]; Protocol Last Admin: 03/16/25 15:18 Dose: 100 mg Magnesium Hydroxide (Milk Of Magnesia 30 Ml Oral.Susp) 30 ml PO DAILY PRN PRN Reason: Constipation Magnesium Oxide (Magnesium Oxide 400 Mg Tablet) 400 mg PO DAILY [facility] Last Admin: 03/16/25 15:18 Dose: 400 mg Melatonin (Melatonin 3 Mg Tablet) 6 mg PO BEDTIME PRN PRN Reason: Insomnia Nicotine (Nicotine 21 Mg Patch.Td24) 21 mg TRANSDERMA DAILY [facility] Last Admin: 03/16/25 09:11 Dose: 21 mg Non-Formulary Medication (Acetaminophen) 650 mg PO Q8H PRN PRN Reason: pain Non-Formulary Medication (Tirzepatide [Mounjaro]) 2.5 mg SUBCUT TH [facility] Nystatin/Triamcinolone Acetonide (Nystatin/Triamcinolone Cream 15 Gm Tube) 1 appl TOPICAL BID PRN PRN Reason: Rash Ondansetron HCl (Ondansetron Hcl 4 Mg/2 Ml Vial) 4 mg IVPUSH Q8H PRN PRN Reason: Nausea and Vomiting Last Admin: 03/16/25 17:01 Dose: 4 mg Ondansetron HCl (Ondansetron Odt 4 Mg Tab.Rapdis) 4 mg TRANSLINGU Q8H PRN PRN Reason: Nausea and Vomiting Oxycodone HCl (Oxycodone Hcl Immed Release 5 Mg Tablet) 5 mg PO Q6H PRN PRN Reason: severe pain Polyethylene Glycol (Polyethylene Glycol 3350 17 Gm Powd.Pack) 17 gm PO DAILY PRN PRN Reason: Constipation Polyethylene Glycol (Polyethylene Glycol 3350 17 Gm Powd.Pack) 17 gm PO DAILY PRN PRN Reason: Constipation Senna (Sennosides 8.6 Mg Tablet) 17.2 mg PO BEDTIME [facility] Sodium Chloride (0.9 % Sodium Chloride Flush 3 Ml Syringe) 3 ml IVFLUSH QSCAFT [facility] Last Admin: 03/16/25 16:08 Dose: Not Given Sodium Chloride (0.9 % Sodium Chloride Flush 3 Ml Syringe) [facility] Last Admin: 03/16/25 16:09 Dose: Not Given Spironolactone (Spironolactone 25 Mg Tablet) 25 mg PO DAILY [facility]; Protocol Last Admin: 03/16/25 15:18 Dose: 25 mg Tamsulosin HCl (Tamsulosin Hcl 0.4 Mg Capsule) 0.4 mg PO DAILY [facility] Last Admin: 03/16/25 15:18 Dose: 0.4 mg Home Medications ?Medication ?Instructions ?Recorded ?Confirmed ?Last Taken ?Type albuterol sulfate 90 mcg/actuation 2 puff inhalation Q4H PRN Wheezing 08/15/23 03/16/25 08/29/23 History aerosol inhaler (Ventolin HFA) atorvastatin 80 mg tablet 80 mg PO BEDTIME 08/15/23 03/16/25 11/21/24 History baclofen 10 mg tablet 10 mg PO TID 08/15/23 03/16/25 11/22/24 History cetirizine 10 mg tablet 10 mg PO DAILY 08/15/23 03/16/25 11/22/24 History chlorthalidone 50 mg tablet 50 mg PO DAILY 08/15/23 03/16/25 11/22/24 History empagliflozin 25 mg tablet 25 mg PO DAILY 08/15/23 03/16/25 11/22/24 History (Jardiance) epinephrine 0.3 mg/0.3 mL 0.3 mg IM DIRECTED PRN Allergic 08/15/23 03/16/25 Unknown History injection, auto-injector Reaction fluticasone propionate 50 1 spray intranasal BID PRN Allergy 08/15/23 03/16/25 Unknown History mcg/actuation nasal Symptoms spray,suspension gabapentin 800 mg tablet 800 mg PO TID 08/15/23 03/16/25 11/22/24 History losartan 100 mg tablet 100 mg PO DAILY 08/15/23 03/16/25 11/22/24 History magnesium oxide 400 mg (241.3 mg 400 mg PO DAILY 08/15/23 03/16/25 11/22/24 History magnesium) tablet oxycodone 5 mg tablet 5 mg PO Q6H PRN severe pain 08/15/23 03/16/25 01/01/24 History tamsulosin 0.4 mg capsule 0.4 mg PO DAILY 08/15/23 03/16/25 11/22/24 History acetaminophen 650 mg 650 mg PO Q8H PRN pain 01/02/24 03/16/25 Unknown History tablet,extended release hydralazine 100 mg tablet 100 mg PO TID 06/25/24 03/16/25 11/22/24 History labetalol 300 mg tablet 300 mg PO BID 06/25/24 03/16/25 11/22/24 History ondansetron HCl 4 mg tablet 4 mg PO Q8H PRN Nausea And Vomiting 06/25/24 03/16/25 Unknown History clotrimazole-betamethasone 1 1 appl topical BID PRN Rash 11/22/24 03/16/25 Unknown History %-0.05 % topical cream insulin aspart U-100 100 unit/mL 10 unit subcut TIDAC 11/22/24 03/16/25 11/22/24 History subcutaneous solution (Novolog U-100 Insulin aspart) polyethylene glycol 3350 17 gram 17 g PO DAILY PRN Constipation 03/16/25 03/16/25 Unknown History oral powder packet spironolactone 25 mg tablet 25 mg PO DAILY 03/16/25 03/16/25 Unknown History tirzepatide 2.5 mg/0.5 mL 2.5 mg subcut TH 03/16/25 03/16/25 Unknown History subcutaneous pen injector (Mounjaro) Physical Exam Vital Signs: Vital Signs: Last Vital Signs Temp 97.5 F 03/16/25 11:28 Pulse 61 03/16/25 11:28 Resp 16 03/16/25 11:28 BP 137/72 03/16/25 15:24 Pulse Ox 96 03/16/25 11:28 O2 Del Method Room Air 03/16/25 11:28 BMI result Body Mass Index 39.3 Const: General: cooperative, healthy appearing, comfortable and no acute distress Extrem: Other: left great toe amp site looks good well healed no issues- very strong palpable DP pulse the right great toe has a 1.5x2 cm ulcerated plantar wound into the tendon - no purulent drainage. the dorsal aspect at bryn joint with open wound into fat but with scab material. no exposed bone. very strong palpable DP pulse. decreased sensation with some neuropathy at plantar great toe - other toes look good Psych: Appearance: grossly normal Mental Status: mental status grossly normal Speech and movement: Normal speech and movement present Affect: normal affect Attitude: cooperative Thought process: Normal thought process present Thought content: Normal thought content present Insight: Good insight present (Psych) Judgement: Good judgement present (Psych) Results Labs 03/16/25 05:44 03/16/25 05:44 Labs: Abnormal lab results 03/16/25 03/16/25 03/16/25 Range/Units 00:38 00:59 01:16 RBC (4.60-5.80) X10*6/uL Hgb 13.1 L (14.0-18.0) g/dl Hct 37.6 L (42.0-52.0) % MPV 9.3 L (9.4-12.4) fL Immature Gran % (Auto) 0.7 H (0.0-0.4) % Lymph % (Auto) 15.0 L (20-40) % Eos % (Auto) (0-4) % Abs Immat Gran (auto) 0.07 H (0.00-0.03) X10*3/uL ESR 84 H (0-15) MM/HR VBG pH (7.32-7.43) Sodium 127 L (135-145) mmol/L Chloride 92 L (96-108) mmol/L Anion Gap (12-20) BUN 31 H (9-16) mg/dL POC Glucose > 600 H* (60-115) mg/dL Random Glucose 678 H* (60-115) mg/dL Calcium (8.4-10.2) mg/dL Alkaline Phosphatase 132 H (39-117) U/L C-Reactive Protein 12.15 H (< or = 0.50) mg/dL NT-Pro-B Natriuret Pep 443.2 H (<300) pg/mL Total Protein (6.5-8.0) g/dL Albumin 3.2 L (3.5-5.0) g/dL Ur Specific [place] >= 1.030 H (1.005-1.025) Urine Protein 100 (2+) H (Neg-Trace) mg/dL Urine Glucose (UA) >=1000 H (Negative) mg/dL Urine Blood Trace H (Negative) Urine RBC 3-5 H (0-2) /HPF 03/16/25 03/16/25 03/16/25 Range/Units 01:25 02:19 03:19 RBC (4.60-5.80) X10*6/uL Hgb (14.0-18.0) g/dl Hct (42.0-52.0) % MPV (9.4-12.4) fL Immature Gran % (Auto) (0.0-0.4) % Lymph % (Auto) (20-40) % Eos % (Auto) (0-4) % Abs Immat Gran (auto) (0.00-0.03) X10*3/uL ESR (0-15) MM/HR VBG pH 7.45 H (7.32-7.43) Sodium (135-145) mmol/L Chloride (96-108) mmol/L Anion Gap (12-20) BUN (9-16) mg/dL POC Glucose 340 H 334 H (60-115) mg/dL Random Glucose (60-115) mg/dL Calcium (8.4-10.2) mg/dL Alkaline Phosphatase (39-117) U/L C-Reactive Protein (< or = 0.50) mg/dL NT-Pro-B Natriuret Pep (<300) pg/mL Total Protein (6.5-8.0) g/dL Albumin (3.5-5.0) g/dL Ur Specific [place] (1.005-1.025) Urine Protein (Neg-Trace) mg/dL Urine Glucose (UA) (Negative) mg/dL Urine Blood (Negative) Urine RBC (0-2) /HPF 03/16/25 03/16/25 03/16/25 Range/Units 05:44 06:54 08:20 RBC 4.36 L (4.60-5.80) X10*6/uL Hgb 12.0 L (14.0-18.0) g/dl Hct 36.4 L (42.0-52.0) % MPV (9.4-12.4) fL Immature Gran % (Auto) 0.8 H (0.0-0.4) % Lymph % (Auto) (20-40) % Eos % (Auto) 4.2 H (0-4) % Abs Immat Gran (auto) 0.08 H (0.00-0.03) X10*3/uL ESR (0-15) MM/HR VBG pH (7.32-7.43) Sodium 133 L (135-145) mmol/L Chloride (96-108) mmol/L Anion Gap 11 L (12-20) BUN 27 H (9-16) mg/dL POC Glucose 384 H* 322 H (60-115) mg/dL Random Glucose 369 H* (60-115) mg/dL Calcium 8.1 L (8.4-10.2) mg/dL Alkaline Phosphatase (39-117) U/L C-Reactive Protein (< or = 0.50) mg/dL NT-Pro-B Natriuret Pep (<300) pg/mL Total Protein 6.4 L (6.5-8.0) g/dL Albumin 2.8 L (3.5-5.0) g/dL Ur Specific [place] (1.005-1.025) Urine Protein (Neg-Trace) mg/dL Urine Glucose (UA) (Negative) mg/dL Urine Blood (Negative) Urine RBC (0-2) /HPF 03/16/25 03/16/25 03/16/25 Range/Units 09:03 11:15 16:09 RBC (4.60-5.80) X10*6/uL Hgb (14.0-18.0) g/dl Hct (42.0-52.0) % MPV (9.4-12.4) fL Immature Gran % (Auto) (0.0-0.4) % Lymph % (Auto) (20-40) % Eos % (Auto) (0-4) % Abs Immat Gran (auto) (0.00-0.03) X10*3/uL ESR (0-15) MM/HR VBG pH (7.32-7.43) Sodium (135-145) mmol/L Chloride (96-108) mmol/L Anion Gap (12-20) BUN (9-16) mg/dL POC Glucose 234 H 225 H 240 H (60-115) mg/dL Random Glucose (60-115) mg/dL Calcium (8.4-10.2) mg/dL Alkaline Phosphatase (39-117) U/L C-Reactive Protein (< or = 0.50) mg/dL NT-Pro-B Natriuret Pep (<300) pg/mL Total Protein (6.5-8.0) g/dL Albumin (3.5-5.0) g/dL Ur Specific [place] (1.005-1.025) Urine Protein (Neg-Trace) mg/dL Urine Glucose (UA) (Negative) mg/dL Urine Blood (Negative) Urine RBC (0-2) /HPF Short CBC 03/16/25 03/16/25 Range/Units 00:59 05:44 WBC 10.6 9.5 (4.8-10.8) X10*3/uL Hgb 13.1 L 12.0 L (14.0-18.0) g/dl Hct 37.6 L 36.4 L (42.0-52.0) % Plt Count 296 294 (160-400) X10*3/uL BMP 03/16/25 03/16/25 00:59 05:44 Sodium 127 L 133 L Potassium 4.1 4.0 Chloride 92 L 99 Carbon Dioxide 24 27 BUN 31 H 27 H Creatinine 1.01 0.95 Calcium 8.5 D 8.1 L Liver Function 03/16/25 03/16/25 Range/Units 00:59 05:44 Total Bilirubin 0.6 0.5 (0.0-1.0) mg/dL AST 26 25 (5-37) U/L ALT 12 13 (0-40) U/L Alkaline Phosphatase 132 H 105 (39-117) U/L Albumin 3.2 L 2.8 L (3.5-5.0) g/dL Urine 03/16/25 Range/Units 01:16 Urine Color Yellow Urine Appearance Clear Urine pH 5.5 (5.0-9.0) Ur Specific [place] >= 1.030 H (1.005-1.025) Urine Protein 100 (2+) H (Neg-Trace) mg/dL Urine Glucose (UA) >=1000 H (Negative) mg/dL All other labs normal. Imaging Additional studies: MR#: [id number] : 1970 Acct:[id number] Age/Sex: 54 / M ADM Date: 03/16/25 Loc: .S3 358-[address]: Yesica Neri MD Ordering Physician: Miranda Mg [facility] Date of Service: 03/16/25 Procedure(s): MR foot RT wo/w con Accession Number(s): [id number] cc: Miranda Mg [facility]; Milena Shoemaker MD~ Reason for Exam: suspect OM worsening wound CLINICAL HISTORY: suspect OM worsening wound MR right foot with and without gadolinium Comparison: 03/16/2025, 11/22/2024 Findings: No acute fracture. There is focal medial cortical loss with marrow signal in the distal phalanx of the great toe, possible osteomyelitis. There is diffuse subcutaneous edema in the great toe possible cellulitis. There is fluid in the flexor and extensor tendons, possible tenosynovitis. There are no focal masses or collections to suggest abscess. There are degenerative changes in the metatarsophalangeal and interphalangeal joints with small joint effusions. There are no other imaging findings to suggest septic arthritis, with no associated articular enhancement. Regional ligamentous and tendinous structures are otherwise intact IMPRESSION: 1. Findings suggesting great toe distal phalangeal osteomyelitis and overlying great toe cellulitis. 2. Great toe flexor and extensor tendon sheath fluid, possible tenosynovitis. Clinical follow-up recommended. 3. Great toe metatarsophalangeal and IP joint degenerative changes with nonspecific joint effusions. 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 ID consult for recommendations for 6 weeks of antibiotics iv. Pt needs better control of glucose/DM for healing - will flu on HgB A1C tomorrow. Technically pt with David 3 right foot infection and meets criteria foe HBO adjunctive therapy - would refer to wound care for this. Plan simple slaine wet to dry dressings daily while here in hospital and can convert to alginate dressing QOD as outpt. Great vascular status. Procedures Date of Service Date of Service: 03/16/25
[2025-03-16 20:32] LABS: Glucose, Whole Blood 235 mg/dL (60-115)
[2025-03-16] MEDS: Insulin Glargine,Hum.rec.anlog 100 UNIT/ML 10 ML VIAL 60 UNIT SUBCUT (20:34)
[2025-03-16] MEDS: oxyCODONE HCl Immed Release 5 MG TABLET PO (23:20)
[2025-03-17] VITALS (14 sets, daily range): BP systolic 122–160; BP diastolic 59–82; PULSE 59–90; RESP 16–20; TEMP 36.2–36.6; O2SAT 94–97
--- NOTE | 2025-03-17 02:21 | HO.SKINPHOTO ---
Location: anterior R great toe Category: Stage: Length: Width: Depth: cm Location: Posterior R great toe Category: Stage: Length: Width: Depth: cm
--- NOTE | 2025-03-17 02:24 | HO.SKINPHOTO ---
Location: Anterior R great toe Category: Stage: Length: Width: Depth: cm Location: Posterior R great toe Category: Stage: Length: Width: Depth: cm
[2025-03-17] MEDS: Linezolid/D5W 600 MG/300 ML PIGGYBACK 300 MG IV ×2 (06:03→17:39)
[2025-03-17] MEDS: Nicotine 21 MG PATCH.TD24 TRANSDERMA (06:46)
[2025-03-17 07:00] LABS: Hemoglobin A1C 310.7734 umol/L; Total Hemoglobin (HGBA1C) 3122.0758 umol/L
[2025-03-17 07:40] LABS: Glucose, Whole Blood 174 mg/dL (60-115)
--- NOTE | 2025-03-17 08:05 | P.PNIM_ITS ---
Subjective Subjective Date of Service: 03/17/25 Interval History: foot infection Review of Systems foot pain/erythema seems similar no fevers Review of Systems: Yes all other systems are reviewed and are negative Physical Exam 2 Exam: Exam: Appearance: Alert.? Oriented X3.? cvs: rrr, [id number] . res: clear to auscultation ,no rhonchii or wheezing abd: no rebound or guarding ,nt, bs present. ext pulses present , no cyanosis . right lower ext: no edema in L lower extremities, right big toe swollen, discolored, with 2 openings 1 on top and 1 on the bottom with a noted ulcer that was recently lanced by patient neuro: axo3 , nonfocal. Vital Signs: Vital Signs: Last Vital Signs Temp 97.5 F 03/17/25 07:28 Pulse 66 03/17/25 07:28 Resp 18 03/17/25 07:28 BP 132/59 L 03/17/25 07:28 Pulse Ox 96 03/17/25 07:28 O2 Del Method CPAP 03/17/25 04:00 BMI result Body Mass Index 39.3 Objective Data Active Medications Acetaminophen (Acetaminophen 325 Mg Tablet) 650 mg PO Q6H PRN PRN Reason: Pain, Mild 1-3,fever,headache Albuterol Sulfate (Albuterol Sulfate 90 Mcg 8 Gm Inhaler) 2 puff INHALE Q4H PRN PRN Reason: Wheezing Albuterol/Ipratropium (Albuterol/Iprat 2.5/0.5mg 3 Ml Ampul.Neb) 3 ml INHALE Q4H PRN PRN Reason: Shortness of Breath/Wheezing Amlodipine Besylate (Amlodipine Besylate 5 Mg Tablet) 5 mg PO DAILY [facility]; Protocol Last Admin: 03/16/25 15:18 Dose: 5 mg Documented By: DANE Atorvastatin Calcium (Atorvastatin Calcium 80 Mg Tablet) 80 mg PO BEDTIME [facility] Last Admin: 03/16/25 20:27 Dose: 80 mg Documented By: MARYJO Baclofen (Baclofen 10 Mg Tablet) 10 mg PO TID [facility] Last Admin: 03/16/25 20:27 Dose: 10 mg Documented By: MARYJO Calcium Carbonate (Calcium Carbonate 750 Mg Tab.Chew) 750 mg PO Q4H PRN PRN Reason: Heartburn Last Admin: 03/16/25 12:14 Dose: 750 mg Documented By: DANE Dextrose (Dextrose 50 % 25 Gm/50 Ml Syringe) 25 gm IVPUSH Q15M PRN; Protocol PRN Reason: per Hypoglycemia Standing Ord. Docusate Sodium (Docusate Sodium 100 Mg Capsule) 100 mg PO BID [facility] Last Admin: 03/16/25 20:27 Dose: 100 mg Documented By: MARYJO Empagliflozin (Empagliflozin 25 Mg Tablet) 25 mg PO DAILY [facility] Last Admin: 03/16/25 15:18 Dose: 25 mg Documented By: DANE Enoxaparin Sodium (Enoxaparin Sodium 40 Mg/0.4 Ml Syringe) 40 mg SUBCUT Q24H [facility] Last Admin: 03/17/25 03:07 Dose: 40 mg Documented By: MARYJO Epinephrine (Epinephrine 1 Mg/Ml Vial) 0.3 mg IM DAILY PRN PRN Reason: Allergic Reaction Fluticasone Propionate (Fluticasone Propionate Nasal 16 Gm [place]) 1 spray NOSTRIL-B BID PRN PRN Reason: Allergy Symptoms Gabapentin (Gabapentin 400 Mg Capsule) 800 mg PO TID [facility] Last Admin: 03/16/25 20:23 Dose: 800 mg Documented By: MARYJO Glucose (Glucose Gel 15 Gm Gel..Gram.) 15 gm PO Q15M PRN; Protocol PRN Reason: per Hypoglycemia Standing Ord. Guaifenesin (Guaifenesin 200 Mg/10 Ml 10 Ml Liquid) 10 ml PO Q4H PRN PRN Reason: Cough Hydralazine HCl (Hydralazine Hcl 50 Mg Tablet) 100 mg PO TID [facility]; Protocol Last Admin: 03/16/25 20:25 Dose: 100 mg Documented By: MARYJO Hydrochlorothiazide (Hydrochlorothiazide 50 Mg Tablet) 50 mg PO DAILY [facility] Hydromorphone HCl (Hydromorphone Hcl 1 Mg/Ml Syringe) 1 mg IVPUSH Q3H PRN; Protocol PRN Reason: Pain, Severe (Pain Scale 7-10) Last Admin: 03/17/25 05:55 Dose: 1 mg Documented By: MARYJO Sodium Chloride (Ns) 1,000 mls @ 100 mls/hr IVCONT .Q10H [facility] Last Infusion: 03/16/25 22:21 Dose: Infused Documented By: MARYJO Piperacillin Sod/Tazobactam (Sod 3.375 gm/ Sodium Chloride) 50 mls @ 100 mls/hr IV Q6H [facility] Last Infusion: 03/17/25 03:37 Dose: Infused Documented By: MARYJO Linezolid (Zyvox/D5w) 600 mg in 300 mls @ 300 mls/hr IV Q12H [facility] Last Admin: 03/17/25 06:03 Dose: 300 mls/hr Documented By: MARYJO Insulin Glargine (Insulin Glargine,Hum.Rec.Anlog 100 Unit/Ml 10 Ml Vial) 60 unit SUBCUT BEDTIME [facility] Last Admin: 03/16/25 20:34 Dose: 60 unit Documented By: MARYJO Insulin Human Lispro (Insulin Lispro 100 Unit/Ml 3 Ml Vial) 0 unit SUBCUT QIDACHS [facility]; Protocol Last Admin: 03/17/25 07:48 Dose: 4 unit Documented By: LEO Labetalol HCl (Labetalol Hcl 100 Mg Tablet) 300 mg PO BID [facility] Last Admin: 03/16/25 20:26 Dose: 300 mg Documented By: MARYJO Loratadine (Loratadine 10 Mg Tablet) 10 mg PO DAILY [facility] Last Admin: 03/16/25 15:18 Dose: 10 mg Documented By: DANE Losartan Potassium (Losartan Potassium 50 Mg Tablet) 100 mg PO DAILY [facility]; Protocol Last Admin: 03/16/25 15:18 Dose: 100 mg Documented By: DANE Magnesium Hydroxide (Milk Of Magnesia 30 Ml Oral.Susp) 30 ml PO DAILY PRN PRN Reason: Constipation Magnesium Oxide (Magnesium Oxide 400 Mg Tablet) 400 mg PO DAILY [facility] Last Admin: 03/16/25 15:18 Dose: 400 mg Documented By: DANE Melatonin (Melatonin 3 Mg Tablet) 6 mg PO BEDTIME PRN PRN Reason: Insomnia Nicotine (Nicotine 21 Mg Patch.Td24) 21 mg TRANSDERMA DAILY [facility] Last Admin: 03/16/25 09:11 Dose: 21 mg Documented By: DANE Non-Formulary Medication (Acetaminophen) 650 mg PO Q8H PRN PRN Reason: pain Non-Formulary Medication (Tirzepatide [Mounjaro]) 2.5 mg SUBCUT TH [facility] Nystatin/Triamcinolone Acetonide (Nystatin/Triamcinolone Cream 15 Gm Tube) 1 appl TOPICAL BID PRN PRN Reason: Rash Ondansetron HCl (Ondansetron Hcl 4 Mg/2 Ml Vial) 4 mg IVPUSH Q8H PRN PRN Reason: Nausea and Vomiting Last Admin: 03/16/25 17:01 Dose: 4 mg Documented By: DANE Ondansetron HCl (Ondansetron Odt 4 Mg Tab.Rapdis) 4 mg TRANSLINGU Q8H PRN PRN Reason: Nausea and Vomiting Oxycodone HCl (Oxycodone Hcl Immed Release 5 Mg Tablet) 5 mg PO Q6H PRN PRN Reason: severe pain Last Admin: 03/16/25 23:20 Dose: 5 mg Documented By: MARYJO Polyethylene Glycol (Polyethylene Glycol 3350 17 Gm Powd.Pack) 17 gm PO DAILY PRN PRN Reason: Constipation Polyethylene Glycol (Polyethylene Glycol 3350 17 Gm Powd.Pack) 17 gm PO DAILY PRN PRN Reason: Constipation Senna (Sennosides 8.6 Mg Tablet) 17.2 mg PO BEDTIME [facility] Last Admin: 03/16/25 20:25 Dose: 17.2 mg Documented By: MARYJO Sodium Chloride (0.9 % Sodium Chloride Flush 3 Ml Syringe) 3 ml IVFLUSH [facility] Last Admin: 03/16/25 20:56 Dose: Not Given Documented By: MARYJO Non-Admin Reason: IV Running Sodium Chloride (0.9 % Sodium Chloride Flush 3 Ml Syringe) 3 ml IVFLUSH [facility] Last Admin: 03/16/25 20:56 Dose: Not Given Documented By: MARYJO Non-Admin Reason: IV Running Spironolactone (Spironolactone 25 Mg Tablet) 25 mg PO DAILY [facility]; Protocol Last Admin: 03/16/25 15:18 Dose: 25 mg Documented By: DANE Tamsulosin HCl (Tamsulosin Hcl 0.4 Mg Capsule) 0.4 mg PO DAILY [facility] Last Admin: 03/16/25 15:18 Dose: 0.4 mg Documented By: DANE Labs 03/16/25 05:44 03/16/25 05:44 Labs: Laboratory Results - last 24 hr 03/16/25 03/16/25 03/16/25 08:20 09:03 11:15 POC Glucose 322 H 234 H 225 H Estimat Average Glucose Hemoglobin A1c % 03/16/25 03/16/25 03/17/25 16:09 20:28 06:19 POC Glucose 240 H 235 H Estimat Average Glucose 278 Hemoglobin A1c % 11.3 H 03/17/25 07:26 POC Glucose 174 H Estimat Average Glucose Hemoglobin A1c % Microbiology Microbiology Results: Microbiology 03/16/25 00:59 Blood Culture - Preliminary Blood - Venous No growth after 24 hours. 03/16/25 00:59 Blood Culture - Preliminary Blood - Venous No growth after 24 hours. Assessment and Plan (1) Abdominal pain: Status: Resolved (2) Rectal bleeding: Status: Resolved Plan 54 yo male with PMH IDDMII, HTN, HLD, 08/2023 L4/L5 1.2 cm abscess paraspinal area requiring transfer to [facility], left big toe amputation, chronic Foot R diabetic ulcer, Asthma, COPD/tobacco dependence, CKD, BPH was BIBA to ED for right great toe pain and signs of infection along with significant lower back pain. Patient currently denies any chest pain, shortness of breath, nausea or vomiting. Patient has reported experiencing chills with diaphoresis or the last 2 weeks, but denies fever. Patient was admitted back in November of 2024 for similar problems. Pt states he wants the R big toe amputated. Patient does not meet criteria for sepsis on admission. Right Toe infeciton with possible OM mrI:Findings suggesting great toe distal phalangeal osteomyelitis and overlying great toe cellulitis. Great toe flexor and extensor tendon sheath fluid, possible tenosynovitis. Clinical follow-up recommended. Pt on Zosyn, refused Vancomycin due to adverse effect of vomiting, added linezolid (rec over doxy for OM via literature) Infectious Disease consulted Blood cultures pending General Surgery and ID Consulted lumbar back pain with history of L4/L5 abscess (2023 - patient required transfer to [facility]) Pain improving Lumbar MRI negative for any acute finding ambulating slowly better, denies any urinary or bowel incontinence, no numbness or weakness . continue pain control pain meds Dilaudid for back pain Diabetic Foot Ulcer (R toe) Wound care consulted Patient Lanced this area on his own about proximally 3 weeks ago using a cuticle cutter, hot water and alcohol pads Hyperglycemia/ IDDMII Pt was using more insulin than usual for elevated levels (secondary to infection) and ran out No DKA noted IVF provided, BG trending down SSI Diabetic diet Lantus 60U HS, lowered normal dose due to risk of hypoglycemia HTN BP stable currently Avoid hypotension continue amlodipine, labetolol, losartan, chlorthalidone Low Salt Diet HLD continue Atorvastatin LFTs stable CKD (saw telescope maintenance earlier this year) Current renal fx not stageable with Cr CL 107, GFR > 60 +2 proteinuria noted Monitor renal fx daily Avoid nephrotoxic meds and hypotension Right renal mass CT of the abdomen and pelvis is pending he may not be the best historian when it comes to his previous healthcare regimen BPH Continue Tamsulosin UA neg for UTI Tobacco Dependence (2PPD) Nicotine patch ordered Pt counseled on the benefits of smoking cessation DVT Prophylaxis: Lovenox Code status: Full ongoing need for stay:Right Toe infeciton with possible OM:mri-possible osteomyelitis,-need IV antibiotics, surgery follow-up as well as ID evaluation. Wound care also needs to be evaluated. Also due to?renal mass -imaging pending Quality Stroke Does the patient have a stroke diagnosis?: No Reason for No Anti-thrombotic by Day Two: N/A - Med Ordered VTE Prior VTE?: No VTE Risk Level:: Medical - moderate - high VTE Device Contraindication: Treatment Not Indicated VTE Drug Contraindication: N/A - Med Ordered
[2025-03-17] MEDS: 0.9 % Sodium Chloride Flush 3 ML SYRINGE IVFLUSH (09:21)
[2025-03-17 11:14] LABS: Glucose, Whole Blood 199 mg/dL (60-115)
[2025-03-17] MEDS: oxyCODONE HCl Immed Release 5 MG TABLET PO ×2 (11:33→18:25)
[2025-03-17 13:42] LABS: Hematocrit 36.1 % (42.0-52.0); Hemoglobin 11.6 g/dl (14.0-18.0)
[2025-03-17 13:53] LABS: Anion Gap 10 (12-20); Blood Urea Nitrogen 12 mg/dL (9-16); Calcium 8.3 mg/dL (8.4-10.2); Carbon Dioxide 28 mmol/L (22-29); Chloride 103 mmol/L (96-108); Creatinine Clr Calc Pharmacy 108.5; Estimated Glomerular Filt Rate > 60; Potassium 3.5 mmol/L (3.3-5.1); Sodium 137 mmol/L (135-145)
--- NOTE | 2025-03-17 15:18 | PM.PNGS ---
Subjective Subjective Date of Service: 03/17/25 Interval history: pt complaining of increased pain in his foot and toe Physical Exam Vital Signs: Vital Signs: Last Vital Signs Temp 97.8 F 03/17/25 11:37 Pulse 59 03/17/25 11:37 Resp 18 03/17/25 13:57 BP 122/59 L 03/17/25 11:37 Pulse Ox 96 03/17/25 11:37 O2 Del Method Room Air 03/17/25 11:37 BMI result Body Mass Index 39.3 Extrem: Other: right great toe swelling dorsal area draining more purulent material now Objective Data Active Medications Acetaminophen (Acetaminophen 325 Mg Tablet) 650 mg PO Q6H PRN PRN Reason: Pain, Mild 1-3,fever,headache Albuterol Sulfate (Albuterol Sulfate 90 Mcg 8 Gm Inhaler) 2 puff INHALE Q4H PRN PRN Reason: Wheezing Albuterol/Ipratropium (Albuterol/Iprat 2.5/0.5mg 3 Ml Ampul.Neb) 3 ml INHALE Q4H PRN PRN Reason: Shortness of Breath/Wheezing Amlodipine Besylate (Amlodipine Besylate 5 Mg Tablet) 5 mg PO DAILY [facility]; Protocol Last Admin: 03/17/25 08:32 Dose: 5 mg Documented By: LEO Atorvastatin Calcium (Atorvastatin Calcium 80 Mg Tablet) 80 mg PO BEDTIME [facility] Last Admin: 03/16/25 20:27 Dose: 80 mg Documented By: MARYJO Baclofen (Baclofen 10 Mg Tablet) 10 mg PO TID [facility] Last Admin: 03/17/25 13:58 Dose: 10 mg Documented By: LEO Calcium Carbonate (Calcium Carbonate 750 Mg Tab.Chew) 750 mg PO Q4H PRN PRN Reason: Heartburn Last Admin: 03/16/25 12:14 Dose: 750 mg Documented By: MANDOIA Dextrose (Dextrose 50 % 25 Gm/50 Ml Syringe) 25 gm IVPUSH Q15M PRN; Protocol PRN Reason: per Hypoglycemia Standing Ord. Docusate Sodium (Docusate Sodium 100 Mg Capsule) 100 mg PO BID [facility] Last Admin: 03/17/25 08:32 Dose: 100 mg Documented By: LEO Empagliflozin (Empagliflozin 25 Mg Tablet) 25 mg PO DAILY [facility] Last Admin: 03/17/25 08:31 Dose: 25 mg Documented By: LEO Enoxaparin Sodium (Enoxaparin Sodium 40 Mg/0.4 Ml Syringe) 40 mg SUBCUT Q24H [facility] Last Admin: 03/17/25 03:07 Dose: 40 mg Documented By: MARYJO Epinephrine (Epinephrine 1 Mg/Ml Vial) 0.3 mg IM DAILY PRN PRN Reason: Allergic Reaction Fluticasone Propionate (Fluticasone Propionate Nasal 16 Gm [place]) 1 spray NOSTRIL-B BID PRN PRN Reason: Allergy Symptoms Gabapentin (Gabapentin 400 Mg Capsule) 800 mg PO TID [facility] Last Admin: 03/17/25 13:57 Dose: 800 mg Documented By: LEO Glucose (Glucose Gel 15 Gm Gel..Gram.) 15 gm PO Q15M PRN; Protocol PRN Reason: per Hypoglycemia Standing Ord. Guaifenesin (Guaifenesin 200 Mg/10 Ml 10 Ml Liquid) 10 ml PO Q4H PRN PRN Reason: Cough Hydralazine HCl (Hydralazine Hcl 50 Mg Tablet) 100 mg PO TID [facility]; Protocol Last Admin: 03/17/25 08:29 Dose: 100 mg Documented By: LEO Hydrochlorothiazide (Hydrochlorothiazide 50 Mg Tablet) 50 mg PO DAILY [facility] Last Admin: 03/17/25 08:31 Dose: 50 mg Documented By: LEO Hydromorphone HCl (Hydromorphone Hcl 1 Mg/Ml Syringe) 1 mg IVPUSH Q3H PRN; Protocol PRN Reason: Pain, Severe (Pain Scale 7-10) Last Admin: 03/17/25 13:57 Dose: 1 mg Documented By: LOE Sodium Chloride (Ns) 1,000 mls @ 100 mls/hr IVCONT .Q10H [facility] Last Admin: 03/17/25 09:22 Dose: 100 mls/hr Documented By: LEO Piperacillin Sod/Tazobactam (Sod 3.375 gm/ Sodium Chloride) 50 mls @ 100 mls/hr IV Q6H [facility] Last Admin: 03/17/25 14:01 Dose: 100 mls/hr Documented By: LEO Linezolid (Zyvox/D5w) 600 mg in 300 mls @ 300 mls/hr IV Q12H [facility] Last Infusion: 03/17/25 07:03 Dose: Infused Documented By: LEO Insulin Glargine (Insulin Glargine,Hum.Rec.Anlog 100 Unit/Ml 10 Ml Vial) 60 unit SUBCUT BEDTIME [facility] Last Admin: 03/16/25 20:34 Dose: 60 unit Documented By: MARYJO Insulin Human Lispro (Insulin Lispro 100 Unit/Ml 3 Ml Vial) 0 unit SUBCUT QIDACHS [facility]; Protocol Last Admin: 03/17/25 11:34 Dose: 4 unit Documented By: LEO Labetalol HCl (Labetalol Hcl 100 Mg Tablet) 300 mg PO BID [facility] Last Admin: 03/17/25 08:30 Dose: 300 mg Documented By: LEO Loratadine (Loratadine 10 Mg Tablet) 10 mg PO DAILY [facility] Last Admin: 03/17/25 08:32 Dose: 10 mg Documented By: LEO Losartan Potassium (Losartan Potassium 50 Mg Tablet) 100 mg PO DAILY [facility]; Protocol Last Admin: 03/17/25 08:30 Dose: 100 mg Documented By: LEO Magnesium Hydroxide (Milk Of Magnesia 30 Ml Oral.Susp) 30 ml PO DAILY PRN PRN Reason: Constipation Magnesium Oxide (Magnesium Oxide 400 Mg Tablet) 400 mg PO DAILY [facility] Last Admin: 03/17/25 08:31 Dose: 400 mg Documented By: LEO Melatonin (Melatonin 3 Mg Tablet) 6 mg PO BEDTIME PRN PRN Reason: Insomnia Nicotine (Nicotine 21 Mg Patch.Td24) 21 mg TRANSDERMA DAILY [facility] Last Admin: 03/17/25 08:35 Dose: Not Given Documented By: LEO Non-Admin Reason: med already given Non-Formulary Medication (Acetaminophen) 650 mg PO Q8H PRN PRN Reason: pain Non-Formulary Medication (Tirzepatide [Mounjaro]) 2.5 mg SUBCUT TH [facility] Nystatin/Triamcinolone Acetonide (Nystatin/Triamcinolone Cream 15 Gm Tube) 1 appl TOPICAL BID PRN PRN Reason: Rash Ondansetron HCl (Ondansetron Hcl 4 Mg/2 Ml Vial) 4 mg IVPUSH Q8H PRN PRN Reason: Nausea and Vomiting Last Admin: 03/16/25 17:01 Dose: 4 mg Documented By: DANE Ondansetron HCl (Ondansetron Odt 4 Mg Tab.Rapdis) 4 mg TRANSLINGU Q8H PRN PRN Reason: Nausea and Vomiting Oxycodone HCl (Oxycodone Hcl Immed Release 5 Mg Tablet) 5 mg PO Q6H PRN PRN Reason: severe pain Last Admin: 03/17/25 11:33 Dose: 5 mg Documented By: LEO Polyethylene Glycol (Polyethylene Glycol 3350 17 Gm Powd.Pack) 17 gm PO DAILY PRN PRN Reason: Constipation Senna (Sennosides 8.6 Mg Tablet) 17.2 mg PO BEDTIME [facility] Last Admin: 03/16/25 20:25 Dose: 17.2 mg Documented By: MARYJO Sodium Chloride (0.9 % Sodium Chloride Flush 3 Ml Syringe) 3 ml IVFLUSH [facility] Last Admin: 03/17/25 09:21 Dose: 3 ml Documented By: LEO Sodium Chloride (0.9 % Sodium Chloride Flush 3 Ml Syringe) 3 ml IVFLUSH [facility] Last Admin: 03/17/25 09:24 Dose: Not Given Documented By: LEO Non-Admin Reason: med already given Spironolactone (Spironolactone 25 Mg Tablet) 25 mg PO DAILY [facility]; Protocol Last Admin: 03/17/25 08:31 Dose: 25 mg Documented By: LEO Tamsulosin HCl (Tamsulosin Hcl 0.4 Mg Capsule) 0.4 mg PO DAILY [facility] Last Admin: 03/17/25 08:31 Dose: 0.4 mg Documented By: LEO Labs 03/17/25 13:33 03/17/25 13:33 Labs: Laboratory Results - last 24 hr 03/16/25 03/16/25 03/17/25 16:09 20:28 06:19 Anion Gap Estim Creat Clear Calc Estimated GFR POC Glucose 240 H 235 H Random Glucose Estimat Average Glucose 278 Hemoglobin A1c % 11.3 H Calcium 03/17/25 03/17/25 03/17/25 07:26 11:08 13:33 Anion Gap 10 L Estim Creat Clear Calc 108.5 Estimated GFR > 60 POC Glucose 174 H 199 H Random Glucose 203 H Estimat Average Glucose Hemoglobin A1c % Calcium 8.3 L Microbiology Microbiology Results: Microbiology 03/16/25 00:59 Blood Culture - Preliminary Blood - Venous No growth after 24 hours. 03/16/25 00:59 Blood Culture - Preliminary Blood - Venous No growth after 24 hours. Procedures Date of Service Date of Service: 03/17/25 Abscess I/D Consent for Procedure: Elective - informed consent obtained Site: foot Side (if applicable): right Sedation/analgesia: none Anesthetic used: with epi Technique: incised with #11 blade Irrigation: Yes Packing used?: plain Progress Note: A&P Assessment and plan (1) Toe infection: Status: Acute Assessment and Plan: 54-year-old male with infected right great toe with underlying osteomyelitis looking a little worse but today after debridement areas improved. Plan to continue with dressings to the area and continue with IV antibiotics follow up on cultures. Time Spent With Patient Time: Total time managing care of this patient today ____ minutes. Quality Stroke Does the patient have a stroke diagnosis?: No Reason for No Anti-thrombotic by Day Two: N/A - Med Ordered VTE Prior VTE?: No VTE Risk Level:: Medical - moderate - high VTE Device Contraindication: Treatment Not Indicated VTE Drug Contraindication: N/A - Med Ordered
[2025-03-17 16:21] LABS: Glucose, Whole Blood 141 mg/dL (60-115)
[2025-03-17] MEDS: Lidocaine HCl 1%/Epi 1:100,000 10 ML VIAL SUBCUT (17:39)
[2025-03-17 20:07] LABS: Glucose, Whole Blood 174 mg/dL (60-115)
[2025-03-17] MEDS: Insulin Glargine,Hum.rec.anlog 100 UNIT/ML 10 ML VIAL 60 UNIT SUBCUT (20:23)
[2025-03-18] VITALS (8 sets, daily range): BP systolic 138–165; BP diastolic 65–86; PULSE 63–88; RESP 16–19; TEMP 36–36.6; O2SAT 94–96
[2025-03-18] MEDS: Linezolid/D5W 600 MG/300 ML PIGGYBACK 300 MG IV (05:48)
[2025-03-18] MEDS: oxyCODONE HCl Immed Release 5 MG TABLET PO ×3 (05:58→19:15)
[2025-03-18 07:27] LABS: Glucose, Whole Blood 127 mg/dL (60-115)
[2025-03-18] MEDS: 0.9 % Sodium Chloride Flush 3 ML SYRINGE IVFLUSH ×5 (07:59→21:04)
[2025-03-18] MEDS: Nicotine 21 MG PATCH.TD24 TRANSDERMA (09:32)
--- NOTE | 2025-03-18 09:48 | P.CNUR_ITS ---
History of Present Illness Consult details Consult date: 03/18/25 Narrative: CC: Small right renal mass 54-year-old male Longstanding insulin-dependent diabetic with complications Admit through emergency room with cellulitis and significant lower back pain Prior paraspinal abscess 09/03 Imaging performed - There is a 1.7 cm solid mass at the posterior aspect of the upper pole of the right kidney Discussed with patient Follow as outpatient Review of Systems 2 Constitutional: Constitutional: Reports as per HPI and Reports no additional constitutional complaints Cardiovascular: Cardiovascular: Reports as per HPI and Reports no additional cardiovascular complaints Respiratory: Respiratory: Reports as per HPI and Reports no additional respiratory complaints Gastrointestinal: Gastrointestinal: Reports as per HPI and Reports no additional gastrointestinal complaints Genitourinary: Genitourinary: Reports as per HPI Musculoskeletal: Musculoskeletal: Reports no additional musculoskeletal complaints and Reports as per HPI Neurologic: Reports system reviewed and no additional complaints, except as documented and Reports as per HPI PMF Past Medical History Medical History (Updated 03/18/25 @ 09:52 by Gallo Cuevas MD) Amputation of left great toe 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 lumbar spine Amputation toe (~08/2023) Ulcer of great toe Asthma Severe obesity Mood disorder MAURI (obstructive sleep apnea) Type 2 diabetes mellitus HLD (hyperlipidemia) HTN (hypertension) Social History Social History Household Members: Children Housing: Apartment Do you presently have visiting nurse or other home services: No Alcohol intake: never 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 Tobacco Use Status: Current everyday Tobacco user Tobacco use type: Cigarette Cigarette Packs Per Day: 20 Cigarettes Per Day: 400.0 e-Cigarette/Vaping Use: Never Used Second Hand Smoke Exposure: No Substance Use Type: Marijuana Advance Directives Date on File: 08/30/23 service: No Travel History Ebola Risk: Travel/Contact With Anyone From Affected Area/s: No Has Patient Experienced Ebola Symptoms: No Meds Allergies Allergy/AdvReac Type Severity Reaction Status Date / Time coconut Allergy Rash Verified 03/16/25 00:24 naproxen (From NAPROSYN) AdvReac Severe STOMACH Verified 03/16/25 00:24 UPSET cefepime AdvReac Intermediate Rash Verified 03/16/25 00:24 lisinopril (LISINOPRIL) AdvReac Mild COUGH Verified 03/16/25 00:24 vancomycin AdvReac Vomiting Verified 03/16/25 00:24 SEAFOOD Allergy Unknown ANAPHYLAXIS Uncoded 03/16/25 00:24 Active Medications: Current Medications Acetaminophen (Acetaminophen 325 Mg Tablet) 650 mg PO Q6H PRN PRN Reason: Pain, Mild 1-3,fever,headache Albuterol Sulfate (Albuterol Sulfate 90 Mcg 8 Gm Inhaler) 2 puff INHALE Q4H PRN PRN Reason: Wheezing Albuterol/Ipratropium (Albuterol/Iprat 2.5/0.5mg 3 Ml Ampul.Neb) 3 ml INHALE Q4H PRN PRN Reason: Shortness of Breath/Wheezing Amlodipine Besylate (Amlodipine Besylate 5 Mg Tablet) 5 mg PO DAILY [facility]; Protocol Last Admin: 03/18/25 08:02 Dose: 5 mg Atorvastatin Calcium (Atorvastatin Calcium 80 Mg Tablet) 80 mg PO BEDTIME [facility] Last Admin: 03/17/25 20:24 Dose: 80 mg Baclofen (Baclofen 10 Mg Tablet) 10 mg PO TID [facility] Last Admin: 03/18/25 08:02 Dose: 10 mg Calcium Carbonate (Calcium Carbonate 750 Mg Tab.Chew) 750 mg PO Q4H PRN PRN Reason: Heartburn Last Admin: 03/16/25 12:14 Dose: 750 mg Dextrose (Dextrose 50 % 25 Gm/50 Ml Syringe) 25 gm IVPUSH Q15M PRN; Protocol PRN Reason: per Hypoglycemia Standing Ord. Docusate Sodium (Docusate Sodium 100 Mg Capsule) 100 mg PO BID [facility] Last Admin: 03/18/25 08:03 Dose: 100 mg Empagliflozin (Empagliflozin 25 Mg Tablet) 25 mg PO DAILY [facility] Last Admin: 03/18/25 08:02 Dose: 25 mg Enoxaparin Sodium (Enoxaparin Sodium 40 Mg/0.4 Ml Syringe) 40 mg SUBCUT Q24H [facility] Last Admin: 03/18/25 02:36 Dose: 40 mg Epinephrine (Epinephrine 1 Mg/Ml Vial) 0.3 mg IM DAILY PRN PRN Reason: Allergic Reaction Fluticasone Propionate (Fluticasone Propionate Nasal 16 Gm [place]) 1 spray NOSTRIL-B BID PRN PRN Reason: Allergy Symptoms Gabapentin (Gabapentin 400 Mg Capsule) 800 mg PO TID [facility] Last Admin: 03/18/25 08:01 Dose: 800 mg Glucose (Glucose Gel 15 Gm Gel..Gram.) 15 gm PO Q15M PRN; Protocol PRN Reason: per Hypoglycemia Standing Ord. Guaifenesin (Guaifenesin 200 Mg/10 Ml 10 Ml Liquid) 10 ml PO Q4H PRN PRN Reason: Cough Hydralazine HCl (Hydralazine Hcl 50 Mg Tablet) 100 mg PO TID [facility]; Protocol Last Admin: 03/18/25 08:01 Dose: 100 mg Hydrochlorothiazide (Hydrochlorothiazide 50 Mg Tablet) 50 mg PO DAILY [facility] Last Admin: 03/18/25 08:03 Dose: 50 mg Hydromorphone HCl (Hydromorphone Hcl 1 Mg/Ml Syringe) 1 mg IVPUSH Q3H PRN; Protocol PRN Reason: Pain, Severe (Pain Scale 7-10) Last Admin: 03/18/25 07:40 Dose: 1 mg Piperacillin Sod/Tazobactam (Sod 3.375 gm/ Sodium Chloride) 50 mls @ 100 mls/hr IV Q6H [facility] Last Admin: 03/18/25 09:30 Dose: 100 mls/hr Linezolid (Zyvox/D5w) 600 mg in 300 mls @ 300 mls/hr IV Q12H [facility] Last Infusion: 03/18/25 07:02 Dose: Infused Insulin Glargine (Insulin Glargine,Hum.Rec.Anlog 100 Unit/Ml 10 Ml Vial) 60 unit SUBCUT BEDTIME [facility] Last Admin: 03/17/25 20:23 Dose: 60 unit Insulin Human Lispro (Insulin Lispro 100 Unit/Ml 3 Ml Vial) 0 unit SUBCUT QIDACHS [facility]; Protocol Last Admin: 03/18/25 07:58 Dose: 2 unit Labetalol HCl (Labetalol Hcl 100 Mg Tablet) 300 mg PO BID [facility] Last Admin: 03/18/25 08:01 Dose: 300 mg Loratadine (Loratadine 10 Mg Tablet) 10 mg PO DAILY [facility] Last Admin: 03/18/25 08:03 Dose: 10 mg Losartan Potassium (Losartan Potassium 50 Mg Tablet) 100 mg PO DAILY [facility]; Protocol Last Admin: 03/18/25 08:01 Dose: 100 mg Magnesium Hydroxide (Milk Of Magnesia 30 Ml Oral.Susp) 30 ml PO DAILY PRN PRN Reason: Constipation Magnesium Oxide (Magnesium Oxide 400 Mg Tablet) 400 mg PO DAILY [facility] Last Admin: 03/18/25 08:02 Dose: 400 mg Melatonin (Melatonin 3 Mg Tablet) 6 mg PO BEDTIME PRN PRN Reason: Insomnia Nicotine (Nicotine 21 Mg Patch.Td24) 21 mg TRANSDERMA DAILY [facility] Last Admin: 03/18/25 09:32 Dose: 21 mg Non-Formulary Medication (Acetaminophen) 650 mg PO Q8H PRN PRN Reason: pain Non-Formulary Medication (Tirzepatide [Mounjaro]) 2.5 mg SUBCUT TH [facility] Nystatin/Triamcinolone Acetonide (Nystatin/Triamcinolone Cream 15 Gm Tube) 1 appl TOPICAL BID PRN PRN Reason: Rash Ondansetron HCl (Ondansetron Hcl 4 Mg/2 Ml Vial) 4 mg IVPUSH Q8H PRN PRN Reason: Nausea and Vomiting Last Admin: 03/16/25 17:01 Dose: 4 mg Ondansetron HCl (Ondansetron Odt 4 Mg Tab.Rapdis) 4 mg TRANSLINGU Q8H PRN PRN Reason: Nausea and Vomiting Oxycodone HCl (Oxycodone Hcl Immed Release 5 Mg Tablet) 5 mg PO Q4H PRN PRN Reason: severe pain Polyethylene Glycol (Polyethylene Glycol 3350 17 Gm Powd.Pack) 17 gm PO DAILY PRN PRN Reason: Constipation Senna (Sennosides 8.6 Mg Tablet) 17.2 mg PO BEDTIME [facility] Last Admin: 03/17/25 20:42 Dose: Not Given Sodium Chloride (0.9 % Sodium Chloride Flush 3 Ml Syringe) 3 ml IVFLUSH [facility] Last Admin: 03/18/25 07:59 Dose: 3 ml Sodium Chloride (0.9 % Sodium Chloride Flush 3 Ml Syringe) 3 ml IVFLUSH [facility] Last Admin: 03/18/25 07:59 Dose: 3 ml Spironolactone (Spironolactone 25 Mg Tablet) 25 mg PO DAILY [facility]; Protocol Last Admin: 03/18/25 08:02 Dose: 25 mg Tamsulosin HCl (Tamsulosin Hcl 0.4 Mg Capsule) 0.4 mg PO DAILY [facility] Last Admin: 03/18/25 08:02 Dose: 0.4 mg Home Medications ?Medication ?Instructions ?Recorded ?Confirmed ?Last Taken ?Type albuterol sulfate 90 mcg/actuation 2 puff inhalation Q 4H PRN Wheezing 08/15/23 03/16/25 08/29/23 History aerosol inhaler (Ventolin HFA) atorvastatin 80 mg tablet 80 mg PO BEDTIME 08/15/2311/21/24 History baclofen 10 mg tablet 10 mg PO TID 08/15/2311/22/24 History cetirizine 10 mg tablet 10 mg PO DAILY 08/15/2310/0511/22/24 History chlorthalidone 50 mg tablet 50 mg PO DAILY 08/15/2311/22/24 History empagliflozin 25 mg tablet 25 mg PO DAILY 08/15/2310/0511/22/24 History (Jardiance) epinephrine 0.3 mg/0.3 mL 0.3 mg IM DIRECTED PRN Al lergic 08/15/23 03/16/25 Unknown History injection, auto-injector Reaction fluticasone propionate 50 1 spray intranasal BID PRN A llergy 08/15/23 03/16/25 Unknown History mcg/actuation nasal Symptoms spray,suspension gabapentin 800 mg tablet 800 mg PO TID 08/15/2303/1611/22/24 History losartan 100 mg tablet 100 mg PO DAILY 08/15/2310/0511/22/24 History magnesium oxide 400 mg (241.3 mg 400 mg PO DAILY 08/1403/16/25 11/22/24 History magnesium) tablet oxycodone 5 mg tablet 5 mg PO Q6H PRN severe pain 08/15/23 03/16/25 01/01/24 History tamsulosin 0.4 mg capsule 0.4 mg PO DAILY 08/15/2310/0511/22/24 History acetaminophen 650 mg 650 mg PO Q8H PRN pain 01/0103/16/25 Unknown History tablet,extended release hydralazine 100 mg tablet 100 mg PO TID 06/25/2403/1611/22/24 History labetalol 300 mg tablet 300 mg PO BID 06/25/2403/1611/22/24 History ondansetron HCl 4 mg tablet 4 mg PO Q8H PRN Nausea And Vomiting 06/25/24 03/16/25 Unknown History clotrimazole-betamethasone 1 1 appl topical BID PRN Ra sh 11/22/24 03/16/25 Unknown History %-0.05 % topical cream insulin aspart U-100 100 unit/mL 10 unit subcut TIDAC 11/22/24 03/16/25 11/22/24 History subcutaneous solution (Novolog U-100 Insulin aspart) polyethylene glycol 3350 17 gram 17 g PO DAILY PRN Con stipation 03/16/25 03/16/25 Unknown History oral powder packet spironolactone 25 mg tablet 25 mg PO DAILY 03/16/25 Unknown History tirzepatide 2.5 mg/0.5 mL 2.5 mg subcut TH 03/16/25 Unknown History subcutaneous pen injector (Leonardo) Physical Exam 2 Vital Signs: Vital Signs: Last Vital Signs Temp 97.3 F 03/18/25 07:47 Pulse 64 03/18/25 07:47 Resp 16 03/18/25 07:47 BP 158/72 H 03/18/25 07:47 Pulse Ox 95 03/18/25 07:47 O2 Del Method Room Air 03/18/25 07:47 BMI result Body Mass Index 39.3 Const: General: cooperative, healthy appearing, comfortable and no acute distress Orientation/consciousness: patient oriented x3 HEENT: Face and sinus: Yes normal facial exam Mouth: moist mucous membranes Neck: Neck: Yes normal visual inspection, Yes full ROM and Yes trachea midline Chest: Chest palpation & inspection: normal inspection of the chest Resp: Effort & Inspection: normal respiratory effort, able to speak in complete sentences and no respiratory distress GI: Inspection: Yes normal to inspection Back/Spine/Pelvis: Cervical Spine: normal cervical lordosis Thoracic/Lumbar Spine: thoracic and lumbar spine normal to inspection Skin: General skin exam: no rashes or lesions noted Neuro: General: patient oriented x3, tone normal and moves all extremities Extrem: General: Yes normal to inspection and Yes capillary refill normal Results Labs 03/17/25 13:33 03/17/25 13:33 Labs: Abnormal lab results 03/17/25 03/17/25 03/17/25 Range/Units 11:08 13:33 16:17 Hgb 11.6 L (14.0-18.0) g/dl Hct 36.1 L (42.0-52.0) % Anion Gap 10 L (12-20) POC Glucose 199 H 141 H (60-115) mg/dL Random Glucose 203 H (60-115) mg/dL Calcium 8.3 L (8.4-10.2) mg/dL 03/17/25 03/18/25 Range/Units 19:59 07:24 Hgb (14.0-18.0) g/dl Hct (42.0-52.0) % Anion Gap (12-20) POC Glucose 174 H 127 H (60-115) mg/dL Random Glucose (60-115) mg/dL Calcium (8.4-10.2) mg/dL Short CBC 03/17/25 Range/Units 13:33 Hgb 11.6 L (14.0-18.0) g/dl Hct 36.1 L (42.0-52.0) % BMP 03/17/25 13:33 Sodium 137 Potassium 3.5 Chloride 103 Carbon Dioxide 28 BUN 12 Creatinine 0.99 Calcium 8.3 L Urine 03/16/25 Range/Units 01:16 Urine Color Yellow Urine Appearance Clear Urine pH 5.5 (5.0-9.0) Ur Specific [place] >= 1.030 H (1.005-1.025) Urine Protein 100 (2+) H (Neg-Trace) mg/dL Urine Glucose (UA) >=1000 H (Negative) mg/dL All other labs normal. Assessment and Plan (1) Renal lesion: Status: Acute Plan follow as outpatient Procedures Date of Service Date of Service: 03/18/25
--- NOTE | 2025-03-18 09:54 | PM.PNGS ---
Subjective Subjective Date of Service: 03/18/25 Interval history: Continues to complain of pain at right big toe. Does not think it has improved much with the antibiotics. States he would like to proceed with amputation. 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 Has history of left first toe amputation and knows what to expect. Physical Exam Vital Signs: Vital Signs: Last Vital Signs Temp 97.3 F 03/18/25 07:47 Pulse 64 03/18/25 07:47 Resp 16 03/18/25 07:47 BP 158/72 H 03/18/25 07:47 Pulse Ox 95 03/18/25 07:47 O2 Del Method Room Air 03/18/25 07:47 BMI result Body Mass Index 39.3 Const: General: comfortable, no acute distress and alert Nutritional Appearance: obese Orientation/consciousness: patient oriented x3 Resp: Effort & Inspection: normal respiratory effort Skin: Other: warm and dry Neuro: General: patient oriented x3 and moves all extremities Extrem: Other: right first toe - two I&D areas of dorsal aspect, and one on plantar - all packing removed- no drainage noted, no fluctuance, has persistent erythema and edema Objective Data Active Medications Acetaminophen (Acetaminophen 325 Mg Tablet) 650 mg PO Q6H PRN PRN Reason: Pain, Mild 1-3,fever,headache Albuterol Sulfate (Albuterol Sulfate 90 Mcg 8 Gm Inhaler) 2 puff INHALE Q4H PRN PRN Reason: Wheezing Albuterol/Ipratropium (Albuterol/Iprat 2.5/0.5mg 3 Ml Ampul.Neb) 3 ml INHALE Q4H PRN PRN Reason: Shortness of Breath/Wheezing Amlodipine Besylate (Amlodipine Besylate 5 Mg Tablet) 5 mg PO DAILY [facility]; Protocol Last Admin: 03/18/25 08:02 Dose: 5 mg Documented By: CAMACHO Atorvastatin Calcium (Atorvastatin Calcium 80 Mg Tablet) 80 mg PO BEDTIME [facility] Last Admin: 03/17/25 20:24 Dose: 80 mg Documented By: EDI Baclofen (Baclofen 10 Mg Tablet) 10 mg PO TID [facility] Last Admin: 03/18/25 08:02 Dose: 10 mg Documented By: CAMACHO Calcium Carbonate (Calcium Carbonate 750 Mg Tab.Chew) 750 mg PO Q4H PRN PRN Reason: Heartburn Last Admin: 03/16/25 12:14 Dose: 750 mg Documented By: DANE Dextrose (Dextrose 50 % 25 Gm/50 Ml Syringe) 25 gm IVPUSH Q15M PRN; Protocol PRN Reason: per Hypoglycemia Standing Ord. Docusate Sodium (Docusate Sodium 100 Mg Capsule) 100 mg PO BID [facility] Last Admin: 03/18/25 08:03 Dose: 100 mg Documented By: CAMACHO Empagliflozin (Empagliflozin 25 Mg Tablet) 25 mg PO DAILY [facility] Last Admin: 03/18/25 08:02 Dose: 25 mg Documented By: CAMACHO Enoxaparin Sodium (Enoxaparin Sodium 40 Mg/0.4 Ml Syringe) 40 mg SUBCUT Q24H [facility] Last Admin: 03/18/25 02:36 Dose: 40 mg Documented By: EDI Epinephrine (Epinephrine 1 Mg/Ml Vial) 0.3 mg IM DAILY PRN PRN Reason: Allergic Reaction Fluticasone Propionate (Fluticasone Propionate Nasal 16 Gm [place]) 1 spray NOSTRIL-B BID PRN PRN Reason: Allergy Symptoms Gabapentin (Gabapentin 400 Mg Capsule) 800 mg PO TID [facility] Last Admin: 03/18/25 08:01 Dose: 800 mg Documented By: CAMACHO Glucose (Glucose Gel 15 Gm Gel..Gram.) 15 gm PO Q15M PRN; Protocol PRN Reason: per Hypoglycemia Standing Ord. Guaifenesin (Guaifenesin 200 Mg/10 Ml 10 Ml Liquid) 10 ml PO Q4H PRN PRN Reason: Cough Hydralazine HCl (Hydralazine Hcl 50 Mg Tablet) 100 mg PO TID [facility]; Protocol Last Admin: 03/18/25 08:01 Dose: 100 mg Documented By: CAMACHO Hydrochlorothiazide (Hydrochlorothiazide 50 Mg Tablet) 50 mg PO DAILY [facility] Last Admin: 03/18/25 08:03 Dose: 50 mg Documented By: CAMACHO Hydromorphone HCl (Hydromorphone Hcl 1 Mg/Ml Syringe) 1 mg IVPUSH Q3H PRN; Protocol PRN Reason: Pain, Severe (Pain Scale 7-10) Last Admin: 03/18/25 07:40 Dose: 1 mg Documented By: CAMACHO Piperacillin Sod/Tazobactam (Sod 3.375 gm/ Sodium Chloride) 50 mls @ 100 mls/hr IV Q6H [facility] Last Admin: 03/18/25 09:30 Dose: 100 mls/hr Documented By: CAMACHO Linezolid (Zyvox/D5w) 600 mg in 300 mls @ 300 mls/hr IV Q12H [facility] Last Infusion: 03/18/25 07:02 Dose: Infused Documented By: CAMACHO Insulin Glargine (Insulin Glargine,Hum.Rec.Anlog 100 Unit/Ml 10 Ml Vial) 60 unit SUBCUT BEDTIME [facility] Last Admin: 03/17/25 20:23 Dose: 60 unit Documented By: EDI Insulin Human Lispro (Insulin Lispro 100 Unit/Ml 3 Ml Vial) 0 unit SUBCUT QIDACHS [facility]; Protocol Last Admin: 03/18/25 07:58 Dose: 2 unit Documented By: CAMACHO Labetalol HCl (Labetalol Hcl 100 Mg Tablet) 300 mg PO BID [facility] Last Admin: 03/18/25 08:01 Dose: 300 mg Documented By: CAMACHO Loratadine (Loratadine 10 Mg Tablet) 10 mg PO DAILY [facility] Last Admin: 03/18/25 08:03 Dose: 10 mg Documented By: CAMACHO Losartan Potassium (Losartan Potassium 50 Mg Tablet) 100 mg PO DAILY [facility]; Protocol Last Admin: 03/18/25 08:01 Dose: 100 mg Documented By: CAMACHO Magnesium Hydroxide (Milk Of Magnesia 30 Ml Oral.Susp) 30 ml PO DAILY PRN PRN Reason: Constipation Magnesium Oxide (Magnesium Oxide 400 Mg Tablet) 400 mg PO DAILY [facility] Last Admin: 03/18/25 08:02 Dose: 400 mg Documented By: CAMACHO Melatonin (Melatonin 3 Mg Tablet) 6 mg PO BEDTIME PRN PRN Reason: Insomnia Nicotine (Nicotine 21 Mg Patch.Td24) 21 mg TRANSDERMA DAILY [facility] Last Admin: 03/18/25 09:32 Dose: 21 mg Documented By: CAMACHO Non-Formulary Medication (Acetaminophen) 650 mg PO Q8H PRN PRN Reason: pain Non-Formulary Medication (Tirzepatide [Mounjaro]) 2.5 mg SUBCUT TH [facility] Nystatin/Triamcinolone Acetonide (Nystatin/Triamcinolone Cream 15 Gm Tube) 1 appl TOPICAL BID PRN PRN Reason: Rash Ondansetron HCl (Ondansetron Hcl 4 Mg/2 Ml Vial) 4 mg IVPUSH Q8H PRN PRN Reason: Nausea and Vomiting Last Admin: 03/16/25 17:01 Dose: 4 mg Documented By: DANE Ondansetron HCl (Ondansetron Odt 4 Mg Tab.Rapdis) 4 mg TRANSLINGU Q8H PRN PRN Reason: Nausea and Vomiting Oxycodone HCl (Oxycodone Hcl Immed Release 5 Mg Tablet) 5 mg PO Q4H PRN PRN Reason: severe pain Polyethylene Glycol (Polyethylene Glycol 3350 17 Gm Powd.Pack) 17 gm PO DAILY PRN PRN Reason: Constipation Senna (Sennosides 8.6 Mg Tablet) 17.2 mg PO BEDTIME [facility] Last Admin: 03/17/25 20:42 Dose: Not Given Documented By: CLEMENT Non-Admin Reason: Patient Refused Sodium Chloride (0.9 % Sodium Chloride Flush 3 Ml Syringe) 3 ml IVFLUSH [facility] Last Admin: 03/18/25 07:59 Dose: 3 ml Documented By: CAMACHO Sodium Chloride (0.9 % Sodium Chloride Flush 3 Ml Syringe) 3 ml IVFLUSH [facility] Last Admin: 03/18/25 07:59 Dose: 3 ml Documented By: CAMACHO Spironolactone (Spironolactone 25 Mg Tablet) 25 mg PO DAILY [facility]; Protocol Last Admin: 03/18/25 08:02 Dose: 25 mg Documented By: CAMACHO Tamsulosin HCl (Tamsulosin Hcl 0.4 Mg Capsule) 0.4 mg PO DAILY [facility] Last Admin: 03/18/25 08:02 Dose: 0.4 mg Documented By: CAMACHO Labs 03/17/25 13:33 03/17/25 13:33 Labs: Laboratory Results - last 24 hr 03/17/25 03/17/25 03/17/25 11:08 13:33 16:17 Anion Gap 10 L Estim Creat Clear Calc 108.5 Estimated GFR > 60 POC Glucose 199 H 141 H Random Glucose 203 H Calcium 8.3 L 10/05/25 10/06/25 19:59 07:24 Anion Gap Estim Creat Clear Calc Estimated GFR POC Glucose 174 H 127 H Random Glucose Calcium Microbiology Microbiology Results: Microbiology 03/16/25 00:59 Blood Culture - Preliminary Blood - Venous No growth after 48 hours. 03/16/25 00:59 Blood Culture - Preliminary Blood - Venous No growth after 48 hours. Procedures Date of Service Date of Service: 03/18/25 Progress Note: A&P Assessment and plan (1) Type 2 diabetes mellitus: Status: Acute (2) Ulcer of great toe: Status: Acute Plan MRI right foot shows focal medial cortical loss with marrow signal in the distal phalanx of the great toe suggesting great toe distal phalangeal osteomyelitis with surrounding subq edema. He underwent I&D of three areas yesterday. Packing was removed and replaced with saline soaked corner of fluff to all areas followed by dry fluffs and kerlix wrap. Recommended continuing antibiotics, right leg elevation and daily wound care. He however stated that he would just like the toe amputated due to social factors. Will continue with conservative measures for now and if he has no improvement and/or continues to chose surgical treatment, can proceed with right first toe amputation later this week. Discussed good POC control with either option to promote healing. Time Spent With Patient Time: Total time managing care of this patient today ____ minutes. Quality Stroke Does the patient have a stroke diagnosis?: No Reason for No Anti-thrombotic by Day Two: N/A - Med Ordered VTE Prior VTE?: No VTE Risk Level:: Medical - moderate - high VTE Device Contraindication: Treatment Not Indicated VTE Drug Contraindication: N/A - Med Ordered
[2025-03-18 10:59] LABS: CDiff Gene PCR NEGATIVE (Negative)
[2025-03-18 11:17] LABS: Glucose, Whole Blood 112 mg/dL (60-115)
[2025-03-18 11:24] LABS: E. coli EAEC Not Detected (Not Detect.); E. coli EPEC Not Detected (Not Detect.); E. coli ETEC Not Detected (Not Detect.); E. coli STEC Not Detected (Not Detect.); Shigella sp./EIEC Not Detected (Not Detect.)
--- NOTE | 2025-03-18 13:54 | MHC.CM.PN ---
EMR REVIEWED AND PER MD NOTES, PT IS NOT YET MEDICALLY CLEARED FOR DC HOME (IV ABT, MAY HAVE TOE AMP LATER IN WEEK) CM WILL CONTINUE TO FOLLOW FOR ANY CHANGE TO DC PLAN/NEEDS.
--- NOTE | 2025-03-18 14:27 | HO.WOUND ---
Wound Consult: deferred Wound consult received for right great toe wound. Patient being followed by general surgery with dressing changes, plan for possible amputation later this week per notes. Wound care will follow along through chart review. Please re-consult wound care if further recommendations are needed.
--- NOTE | 2025-03-18 14:54 | HO.PM.IMPN ---
Subjective Subjective Date of Service: 03/18/25 Interval History: foot infection Review of Systems foot pain/erythema seems similar no fevers Review of Systems: Yes all other systems are reviewed and are negative Physical Exam Exam: Exam: Appearance: Alert.? Oriented X3.? cvs: [id number], [id number] . res: clear to auscultation ,no rhonchii or wheezing abd: no rebound or guarding ,nt, bs present. ext pulses present , no cyanosis . right lower ext: no edema in L lower extremities, right big toe swollen, discolored, with 2 openings 1 on top and 1 on the bottom with a noted ulcer that was recently lanced by patient neuro: [email or web address] , nonfocal. Vital Signs: Vital Signs: Last Vital Signs Temp 97.3 F 03/18/25 12:00 Pulse 63 03/18/25 12:00 Resp 18 03/18/25 12:00 BP 165/86 H 03/18/25 12:00 Pulse Ox 95 03/18/25 12:00 O2 Del Method Room Air 03/18/25 12:00 BMI result Body Mass Index 39.3 Objective Data Active Medications Acetaminophen (Acetaminophen 325 Mg Tablet) 650 mg PO Q6H PRN PRN Reason: Pain, Mild 1-3,fever,headache Albuterol Sulfate (Albuterol Sulfate 90 Mcg 8 Gm Inhaler) 2 puff INHALE Q4H PRN PRN Reason: Wheezing Albuterol/Ipratropium (Albuterol/Iprat 2.5/0.5mg 3 Ml Ampul.Neb) 3 ml INHALE Q4H PRN PRN Reason: Shortness of Breath/Wheezing Amlodipine Besylate (Amlodipine Besylate 5 Mg Tablet) 5 mg PO DAILY [facility]; Protocol Last Admin: 03/18/25 08:02 Dose: 5 mg Documented By: CAMACHO Atorvastatin Calcium (Atorvastatin Calcium 80 Mg Tablet) 80 mg PO BEDTIME [facility] Last Admin: 03/17/25 20:24 Dose: 80 mg Documented By: EDI Baclofen (Baclofen 10 Mg Tablet) 10 mg PO TID [facility] Last Admin: 03/18/25 14:49 Dose: 10 mg Documented By: CAMACHO Calcium Carbonate (Calcium Carbonate 750 Mg Tab.Chew) 750 mg PO Q4H PRN PRN Reason: Heartburn Last Admin: 03/16/25 12:14 Dose: 750 mg Documented By: DANE Dextrose (Dextrose 50 % 25 Gm/50 Ml Syringe) 25 gm IVPUSH Q15M PRN; Protocol PRN Reason: per Hypoglycemia Standing Ord. Docusate Sodium (Docusate Sodium 100 Mg Capsule) 100 mg PO BID [facility] Last Admin: 03/18/25 08:03 Dose: 100 mg Documented By: CAMACHO Empagliflozin (Empagliflozin 25 Mg Tablet) 25 mg PO DAILY [facility] Last Admin: 03/18/25 08:02 Dose: 25 mg Documented By: CAMACHO Enoxaparin Sodium (Enoxaparin Sodium 40 Mg/0.4 Ml Syringe) 40 mg SUBCUT Q24H [facility] Last Admin: 03/18/25 02:36 Dose: 40 mg Documented By: EDI Epinephrine (Epinephrine 1 Mg/Ml Vial) 0.3 mg IM DAILY PRN PRN Reason: Allergic Reaction Fluticasone Propionate (Fluticasone Propionate Nasal 16 Gm [place]) 1 spray NOSTRIL-B BID PRN PRN Reason: Allergy Symptoms Gabapentin (Gabapentin 400 Mg Capsule) 800 mg PO TID [facility] Last Admin: 03/18/25 14:49 Dose: 800 mg Documented By: CAMACHO Glucose (Glucose Gel 15 Gm Gel..Gram.) 15 gm PO Q15M PRN; Protocol PRN Reason: per Hypoglycemia Standing Ord. Guaifenesin (Guaifenesin 200 Mg/10 Ml 10 Ml Liquid) 10 ml PO Q4H PRN PRN Reason: Cough Hydralazine HCl (Hydralazine Hcl 50 Mg Tablet) 100 mg PO TID [facility]; Protocol Last Admin: 03/18/25 08:01 Dose: 100 mg Documented By: CAMACHO Hydrochlorothiazide (Hydrochlorothiazide 50 Mg Tablet) 50 mg PO DAILY [facility] Last Admin: 03/18/25 08:03 Dose: 50 mg Documented By: CAMACHO Hydromorphone HCl (Hydromorphone Hcl 1 Mg/Ml Syringe) 1 mg IVPUSH Q3H PRN; Protocol PRN Reason: Pain, Severe (Pain Scale 7-10) Last Admin: 03/18/25 14:48 Dose: 1 mg Documented By: CAMACHO Piperacillin Sod/Tazobactam (Sod 3.375 gm/ Sodium Chloride) 50 mls @ 100 mls/hr IV Q6H [facility] Last Infusion: 03/18/25 10:04 Dose: Infused Documented By: CAMACHO Linezolid (Zyvox/D5w) 600 mg in 300 mls @ 300 mls/hr IV Q12H [facility] Last Infusion: 03/18/25 07:02 Dose: Infused Documented By: CAMACHO Insulin Glargine (Insulin Glargine,Hum.Rec.Anlog 100 Unit/Ml 10 Ml Vial) 60 unit SUBCUT BEDTIME [facility] Last Admin: 03/17/25 20:23 Dose: 60 unit Documented By: EDI Insulin Human Lispro (Insulin Lispro 100 Unit/Ml 3 Ml Vial) 0 unit SUBCUT QIDACHS [facility]; Protocol Last Admin: 03/18/25 11:25 Dose: 2 unit Documented By: CAMACHO Labetalol HCl (Labetalol Hcl 100 Mg Tablet) 300 mg PO BID [facility] Last Admin: 03/18/25 08:01 Dose: 300 mg Documented By: CAMACHO Loratadine (Loratadine 10 Mg Tablet) 10 mg PO DAILY [facility] Last Admin: 03/18/25 08:03 Dose: 10 mg Documented By: CAMACHO Losartan Potassium (Losartan Potassium 50 Mg Tablet) 100 mg PO DAILY [facility]; Protocol Last Admin: 03/18/25 08:01 Dose: 100 mg Documented By: CAMACHO Magnesium Hydroxide (Milk Of Magnesia 30 Ml Oral.Susp) 30 ml PO DAILY PRN PRN Reason: Constipation Magnesium Oxide (Magnesium Oxide 400 Mg Tablet) 400 mg PO DAILY [facility] Last Admin: 03/18/25 08:02 Dose: 400 mg Documented By: CAMACHO Melatonin (Melatonin 3 Mg Tablet) 6 mg PO BEDTIME PRN PRN Reason: Insomnia Nicotine (Nicotine 21 Mg Patch.Td24) 21 mg TRANSDERMA DAILY [facility] Last Admin: 03/18/25 09:32 Dose: 21 mg Documented By: CAMACHO Non-Formulary Medication (Acetaminophen) 650 mg PO Q8H PRN PRN Reason: pain Non-Formulary Medication (Tirzepatide [Mounjaro]) 2.5 mg SUBCUT TH [facility] Nystatin/Triamcinolone Acetonide (Nystatin/Triamcinolone Cream 15 Gm Tube) 1 appl TOPICAL BID PRN PRN Reason: Rash Ondansetron HCl (Ondansetron Hcl 4 Mg/2 Ml Vial) 4 mg IVPUSH Q8H PRN PRN Reason: Nausea and Vomiting Last Admin: 03/16/25 17:01 Dose: 4 mg Documented By: DANE Ondansetron HCl (Ondansetron Odt 4 Mg Tab.Rapdis) 4 mg TRANSLINGU Q8H PRN PRN Reason: Nausea and Vomiting Oxycodone HCl (Oxycodone Hcl Immed Release 5 Mg Tablet) 5 mg PO Q4H PRN PRN Reason: severe pain Polyethylene Glycol (Polyethylene Glycol 3350 17 Gm Powd.Pack) 17 gm PO DAILY PRN PRN Reason: Constipation Senna (Sennosides 8.6 Mg Tablet) 17.2 mg PO BEDTIME [facility] Last Admin: 03/17/25 20:42 Dose: Not Given Documented By: CLEMENT Non-Admin Reason: Patient Refused Sodium Chloride (0.9 % Sodium Chloride Flush 3 Ml Syringe) 3 ml IVFLUSH [facility] Last Admin: 03/18/25 07:59 Dose: 3 ml Documented By: CAMACHO Sodium Chloride (0.9 % Sodium Chloride Flush 3 Ml Syringe) 3 ml IVFLUSH [facility] Last Admin: 03/18/25 07:59 Dose: 3 ml Documented By: CAMACHO Spironolactone (Spironolactone 25 Mg Tablet) 25 mg PO DAILY [facility]; Protocol Last Admin: 03/18/25 08:02 Dose: 25 mg Documented By: CAMACHO Tamsulosin HCl (Tamsulosin Hcl 0.4 Mg Capsule) 0.4 mg PO DAILY [facility] Last Admin: 03/18/25 08:02 Dose: 0.4 mg Documented By: CAMACHO Labs 03/17/25 13:33 03/17/25 13:33 Labs: Laboratory Results - last 24 hr 03/17/25 03/17/25 03/18/25 16:17 19:59 07:24 POC Glucose 141 H 174 H 127 H Stl C. cayetanensis PCR Stool Rotavirus A PCR Stl Adenov F 40/41 PCR Stool Astrovirus (PCR) Stool Campylobacter PCR Stool Cryptosporidium PCR Stl Sh Tox Pr E STEC PCR Stool E coli O157 PCR Stl Enterotoxigenic E PCR Stool EPEC (PCR) Stool EAEC (PCR) Stl E. histolytica PCR Stool Giardia Lamblia PCR Stl P. shigelloides PCR Stool Salmonella PCR Stool Sapovirus (PCR) Stl Shigella/EIEC PCR St Y.enterocolitica PCR Stool Vibrio (PCR) Stl Vibrio cholerae PCR Stl Norovirus GI/GII PCR C. difficile Tox B Gene 03/18/25 03/18/25 09:45 11:12 POC Glucose 112 Stl C. cayetanensis PCR Not Detected Stool Rotavirus A PCR Not Detected Stl Adenov F 40/41 PCR Not Detected Stool Astrovirus (PCR) Not Detected Stool Campylobacter PCR Not Detected Stool Cryptosporidium PCR Not Detected Stl Sh Tox Pr E STEC PCR Not Detected Stool E coli O157 PCR Not applicable Stl Enterotoxigenic E PCR Not Detected Stool EPEC (PCR) Not Detected Stool EAEC (PCR) Not Detected Stl E. histolytica PCR Not Detected Stool Giardia Lamblia PCR Not Detected Stl P. shigelloides PCR Not Detected Stool Salmonella PCR Not Detected Stool Sapovirus (PCR) Not Detected Stl Shigella/EIEC PCR Not Detected St Y.enterocolitica PCR Not Detected Stool Vibrio (PCR) Not Detected Stl Vibrio cholerae PCR Not Detected Stl Norovirus GI/GII PCR Not Detected C. difficile Tox B Gene NEGATIVE Microbiology Microbiology Results: Microbiology 03/16/25 00:59 Blood Culture - Preliminary Blood - Venous No growth after 48 hours. 03/16/25 00:59 Blood Culture - Preliminary Blood - Venous No growth after 48 hours. Assessment and Plan (1) Abdominal pain: Status: Resolved (2) Rectal bleeding: Status: Resolved Plan 54 yo male with PMH IDDMII, HTN, HLD, 08/2023 L4/L5 1.2 cm abscess paraspinal area requiring transfer to [facility], left big toe amputation, chronic Foot R diabetic ulcer, Asthma, COPD/tobacco dependence, CKD, BPH was BIBA to ED for right great toe pain and signs of infection along with significant lower back pain. Patient currently denies any chest pain, shortness of breath, nausea or vomiting. Patient has reported experiencing chills with diaphoresis or the last 2 weeks, but denies fever. Patient was admitted back in November of 2024 for similar problems. Pt states he wants the R big toe amputated. Patient does not meet criteria for sepsis on admission. Right Toe infeciton with possible OM mrI:Findings suggesting great toe distal phalangeal osteomyelitis and overlying great toe cellulitis. Great toe flexor and extensor tendon sheath fluid, possible tenosynovitis. Clinical follow-up recommended. Pt on Zosyn, refused Vancomycin due to adverse effect of vomiting, added linezolid (rec over doxy for OM via literature) Infectious Disease consulted Blood cultures pending General Surgery and ID Consulted lumbar back pain with history of L4/L5 abscess (2023 - patient required transfer to [facility]) Pain improving Lumbar MRI negative for any acute finding ambulating slowly better, denies any urinary or bowel incontinence, no numbness or weakness . continue pain control pain meds Dilaudid for back pain Diabetic Foot Ulcer (R toe) Wound care consulted Patient Lanced this area on his own about proximally 3 weeks ago using a cuticle cutter, hot water and alcohol pads Hyperglycemia/ IDDMII Pt was using more insulin than usual for elevated levels (secondary to infection) and ran out No DKA noted IVF provided, BG trending down SSI Diabetic diet Lantus 60U HS, lowered normal dose due to risk of hypoglycemia HTN BP stable currently Avoid hypotension continue amlodipine, labetolol, losartan, chlorthalidone Low Salt Diet HLD continue Atorvastatin LFTs stable CKD (saw [facility] earlier this year) Current renal fx not stageable with Cr CL 107, GFR > 60 +2 proteinuria noted Monitor renal fx daily Avoid nephrotoxic meds and hypotension Right renal mass CT of the abdomen and pelvis is pending he may not be the best historian when it comes to his previous healthcare regimen BPH Continue Tamsulosin UA neg for UTI Tobacco Dependence (2PPD) Nicotine patch ordered Pt counseled on the benefits of smoking cessation DVT Prophylaxis: Lovenox Code status: Full ongoing need for stay:Right Toe infeciton with possible OM:mri-possible osteomyelitis-need IV antibiotics, surgery follow-up as well as ID evaluation. Wound care also needs to be evaluated. Also due to?renal mass -imaging pending Quality Stroke Does the patient have a stroke diagnosis?: No Reason for No Anti-thrombotic by Day Two: N/A - Med Ordered VTE Prior VTE?: No VTE Risk Level:: Medical - moderate - high VTE Device Contraindication: Treatment Not Indicated VTE Drug Contraindication: N/A - Med Ordered
--- NOTE | 2025-03-18 15:01 | P.PNIM_ITS ---
Subjective Subjective Date of Service: 03/18/25 Interval History: foot infection Review of Systems foot pain/erythema seems similar no fevers Physical Exam 2 Exam: Exam: Appearance: Alert.? Oriented X3.? cvs: [id number], [id number] . res: clear to auscultation ,no rhonchii or wheezing abd: no rebound or guarding ,nt, bs present. ext pulses present , no cyanosis . right lower ext: no edema in L lower extremities, right big toe swollen, discolored, with 2 openings 1 on top and 1 on the bottom with a noted ulcer that was recently lanced by patient neuro: [email or web address] , nonfocal. Vital Signs: Vital Signs: Last Vital Signs Temp 97.3 F 03/18/25 12:00 Pulse 63 03/18/25 12:00 Resp 18 03/18/25 12:00 BP 165/86 H 03/18/25 12:00 Pulse Ox 95 03/18/25 12:00 O2 Del Method Room Air 03/18/25 12:00 BMI result Body Mass Index 39.3 Objective Data Active Medications Acetaminophen (Acetaminophen 325 Mg Tablet) 650 mg PO Q6H PRN PRN Reason: Pain, Mild 1-3,fever,headache Albuterol Sulfate (Albuterol Sulfate 90 Mcg 8 Gm Inhaler) 2 puff INHALE Q4H PRN PRN Reason: Wheezing Albuterol/Ipratropium (Albuterol/Iprat 2.5/0.5mg 3 Ml Ampul.Neb) 3 ml INHALE Q4H PRN PRN Reason: Shortness of Breath/Wheezing Amlodipine Besylate (Amlodipine Besylate 5 Mg Tablet) 5 mg PO DAILY [facility]; Protocol Last Admin: 03/18/25 08:02 Dose: 5 mg Documented By: CAMACHO Atorvastatin Calcium (Atorvastatin Calcium 80 Mg Tablet) 80 mg PO BEDTIME [facility] Last Admin: 03/17/25 20:24 Dose: 80 mg Documented By: EDI Baclofen (Baclofen 10 Mg Tablet) 10 mg PO TID [facility] Last Admin: 03/18/25 14:49 Dose: 10 mg Documented By: CAMACHO Calcium Carbonate (Calcium Carbonate 750 Mg Tab.Chew) 750 mg PO Q4H PRN PRN Reason: Heartburn Last Admin: 03/16/25 12:14 Dose: 750 mg Documented By: DANE Dextrose (Dextrose 50 % 25 Gm/50 Ml Syringe) 25 gm IVPUSH Q15M PRN; Protocol PRN Reason: per Hypoglycemia Standing Ord. Docusate Sodium (Docusate Sodium 100 Mg Capsule) 100 mg PO BID [facility] Last Admin: 03/18/25 08:03 Dose: 100 mg Documented By: CAMACHO Empagliflozin (Empagliflozin 25 Mg Tablet) 25 mg PO DAILY [facility] Last Admin: 03/18/25 08:02 Dose: 25 mg Documented By: CAMACHO Enoxaparin Sodium (Enoxaparin Sodium 40 Mg/0.4 Ml Syringe) 40 mg SUBCUT Q24H [facility] Last Admin: 03/18/25 02:36 Dose: 40 mg Documented By: EDI Epinephrine (Epinephrine 1 Mg/Ml Vial) 0.3 mg IM DAILY PRN PRN Reason: Allergic Reaction Fluticasone Propionate (Fluticasone Propionate Nasal 16 Gm [place]) 1 spray NOSTRIL-B BID PRN PRN Reason: Allergy Symptoms Gabapentin (Gabapentin 400 Mg Capsule) 800 mg PO TID [facility] Last Admin: 03/18/25 14:49 Dose: 800 mg Documented By: CAMACHO Glucose (Glucose Gel 15 Gm Gel..Gram.) 15 gm PO Q15M PRN; Protocol PRN Reason: per Hypoglycemia Standing Ord. Guaifenesin (Guaifenesin 200 Mg/10 Ml 10 Ml Liquid) 10 ml PO Q4H PRN PRN Reason: Cough Hydralazine HCl (Hydralazine Hcl 50 Mg Tablet) 100 mg PO TID [facility]; Protocol Last Admin: 03/18/25 08:01 Dose: 100 mg Documented By: CAMACHO Hydrochlorothiazide (Hydrochlorothiazide 50 Mg Tablet) 50 mg PO DAILY [facility] Last Admin: 03/18/25 08:03 Dose: 50 mg Documented By: CAMACHO Hydromorphone HCl (Hydromorphone Hcl 1 Mg/Ml Syringe) 1 mg IVPUSH Q3H PRN; Protocol PRN Reason: Pain, Severe (Pain Scale 7-10) Last Admin: 03/18/25 14:48 Dose: 1 mg Documented By: CAMACHO Piperacillin Sod/Tazobactam (Sod 3.375 gm/ Sodium Chloride) 50 mls @ 100 mls/hr IV Q6H [facility] Last Admin: 03/18/25 14:52 Dose: 100 mls/hr Documented By: CAMACHO Linezolid (Zyvox/D5w) 600 mg in 300 mls @ 300 mls/hr IV Q12H [facility] Last Infusion: 03/18/25 07:02 Dose: Infused Documented By: CAMACHO Insulin Glargine (Insulin Glargine,Hum.Rec.Anlog 100 Unit/Ml 10 Ml Vial) 60 unit SUBCUT BEDTIME [facility] Last Admin: 03/17/25 20:23 Dose: 60 unit Documented By: EDI Insulin Human Lispro (Insulin Lispro 100 Unit/Ml 3 Ml Vial) 0 unit SUBCUT QIDACHS [facility]; Protocol Last Admin: 03/18/25 11:25 Dose: 2 unit Documented By: CAMACHO Labetalol HCl (Labetalol Hcl 100 Mg Tablet) 300 mg PO BID [facility] Last Admin: 03/18/25 08:01 Dose: 300 mg Documented By: CAMACHO Loratadine (Loratadine 10 Mg Tablet) 10 mg PO DAILY [facility] Last Admin: 03/18/25 08:03 Dose: 10 mg Documented By: CAMACHO Losartan Potassium (Losartan Potassium 50 Mg Tablet) 100 mg PO DAILY [facility]; Protocol Last Admin: 03/18/25 08:01 Dose: 100 mg Documented By: CAMACHO Magnesium Hydroxide (Milk Of Magnesia 30 Ml Oral.Susp) 30 ml PO DAILY PRN PRN Reason: Constipation Magnesium Oxide (Magnesium Oxide 400 Mg Tablet) 400 mg PO DAILY [facility] Last Admin: 03/18/25 08:02 Dose: 400 mg Documented By: CAMACHO Melatonin (Melatonin 3 Mg Tablet) 6 mg PO BEDTIME PRN PRN Reason: Insomnia Nicotine (Nicotine 21 Mg Patch.Td24) 21 mg TRANSDERMA DAILY [facility] Last Admin: 03/18/25 09:32 Dose: 21 mg Documented By: CAMACHO Non-Formulary Medication (Acetaminophen) 650 mg PO Q8H PRN PRN Reason: pain Non-Formulary Medication (Tirzepatide [Mounjaro]) 2.5 mg SUBCUT TH [facility] Nystatin/Triamcinolone Acetonide (Nystatin/Triamcinolone Cream 15 Gm Tube) 1 appl TOPICAL BID PRN PRN Reason: Rash Ondansetron HCl (Ondansetron Hcl 4 Mg/2 Ml Vial) 4 mg IVPUSH Q8H PRN PRN Reason: Nausea and Vomiting Last Admin: 03/16/25 17:01 Dose: 4 mg Documented By: DANE Ondansetron HCl (Ondansetron Odt 4 Mg Tab.Rapdis) 4 mg TRANSLINGU Q8H PRN PRN Reason: Nausea and Vomiting Oxycodone HCl (Oxycodone Hcl Immed Release 5 Mg Tablet) 5 mg PO Q4H PRN PRN Reason: severe pain Polyethylene Glycol (Polyethylene Glycol 3350 17 Gm Powd.Pack) 17 gm PO DAILY PRN PRN Reason: Constipation Senna (Sennosides 8.6 Mg Tablet) 17.2 mg PO BEDTIME [facility] Last Admin: 03/17/25 20:42 Dose: Not Given Documented By: CLEMENT Non-Admin Reason: Patient Refused Sodium Chloride (0.9 % Sodium Chloride Flush 3 Ml Syringe) 3 ml IVFLUSH [facility] Last Admin: 03/18/25 07:59 Dose: 3 ml Documented By: CAMACHO Sodium Chloride (0.9 % Sodium Chloride Flush 3 Ml Syringe) 3 ml IVFLUSH [facility] Last Admin: 03/18/25 07:59 Dose: 3 ml Documented By: CAMACHO Spironolactone (Spironolactone 25 Mg Tablet) 25 mg PO DAILY [facility]; Protocol Last Admin: 03/18/25 08:02 Dose: 25 mg Documented By: CAMACHO Tamsulosin HCl (Tamsulosin Hcl 0.4 Mg Capsule) 0.4 mg PO DAILY [facility] Last Admin: 03/18/25 08:02 Dose: 0.4 mg Documented By: CAMACHO Labs 03/17/25 13:33 03/17/25 13:33 Labs: Laboratory Results - last 24 hr 03/17/25 03/17/25 03/18/25 16:17 19:59 07:24 POC Glucose 141 H 174 H 127 H Stl C. cayetanensis PCR Stool Rotavirus A PCR Stl Adenov F 40/41 PCR Stool Astrovirus (PCR) Stool Campylobacter PCR Stool Cryptosporidium PCR Stl Sh Tox Pr E STEC PCR Stool E coli O157 PCR Stl Enterotoxigenic E PCR Stool EPEC (PCR) Stool EAEC (PCR) Stl E. histolytica PCR Stool Giardia Lamblia PCR Stl P. shigelloides PCR Stool Salmonella PCR Stool Sapovirus (PCR) Stl Shigella/EIEC PCR St Y.enterocolitica PCR Stool Vibrio (PCR) Stl Vibrio cholerae PCR Stl Norovirus GI/GII PCR C. difficile Tox B Gene 03/18/25 03/18/25 09:45 11:12 POC Glucose 112 Stl C. cayetanensis PCR Not Detected Stool Rotavirus A PCR Not Detected Stl Adenov F 40/41 PCR Not Detected Stool Astrovirus (PCR) Not Detected Stool Campylobacter PCR Not Detected Stool Cryptosporidium PCR Not Detected Stl Sh Tox Pr E STEC PCR Not Detected Stool E coli O157 PCR Not applicable Stl Enterotoxigenic E PCR Not Detected Stool EPEC (PCR) Not Detected Stool EAEC (PCR) Not Detected Stl E. histolytica PCR Not Detected Stool Giardia Lamblia PCR Not Detected Stl P. shigelloides PCR Not Detected Stool Salmonella PCR Not Detected Stool Sapovirus (PCR) Not Detected Stl Shigella/EIEC PCR Not Detected St Y.enterocolitica PCR Not Detected Stool Vibrio (PCR) Not Detected Stl Vibrio cholerae PCR Not Detected Stl Norovirus GI/GII PCR Not Detected C. difficile Tox B Gene NEGATIVE Microbiology Microbiology Results: Microbiology 03/16/25 00:59 Blood Culture - Preliminary Blood - Venous No growth after 48 hours. 03/16/25 00:59 Blood Culture - Preliminary Blood - Venous No growth after 48 hours. Assessment and Plan (1) Abdominal pain: Status: Resolved (2) Rectal bleeding: Status: Resolved Plan 54 yo male with PMH IDDMII, HTN, HLD, 08/2023 L4/L5 1.2 cm abscess paraspinal area requiring transfer to [facility], left big toe amputation, chronic Foot R diabetic ulcer, Asthma, COPD/tobacco dependence, CKD, BPH was BIBA to ED for right great toe pain and signs of infection along with significant lower back pain. Patient currently denies any chest pain, shortness of breath, nausea or vomiting. Patient has reported experiencing chills with diaphoresis or the last 2 weeks, but denies fever. Patient was admitted back in November of 2024 for similar problems. Pt states he wants the R big toe amputated. Patient does not meet criteria for sepsis on admission. Right Toe infeciton with possible OM mrI:Findings suggesting great toe distal phalangeal osteomyelitis and overlying great toe cellulitis. Great toe flexor and extensor tendon sheath fluid, possible tenosynovitis. Clinical follow-up recommended. Pt on Zosyn, refused Vancomycin due to adverse effect of vomiting, added linezolid (rec over doxy for OM via literature) Infectious Disease consulted Blood cultures negative for 48 hrs General Surgery: s/p i&D (on 03/17) and ID Consulted . lumbar back pain with history of L4/L5 abscess (2023 - patient required transfer to [facility]) Pain improving Lumbar MRI negative for any acute finding ambulating slowly better, denies any urinary or bowel incontinence, no numbness or weakness . continue pain control pain meds Dilaudid for back pain Diabetic Foot Ulcer (R toe) Wound care consulted Patient Lanced this area on his own about proximally 3 weeks ago using a cuticle cutter, hot water and alcohol pads Hyperglycemia/ IDDMII Pt was using more insulin than usual for elevated levels (secondary to infection) and ran out No DKA noted IVF provided, BG trending down SSI Diabetic diet Lantus 60U HS, lowered normal dose due to risk of hypoglycemia HTN BP stable currently Avoid hypotension continue amlodipine, labetolol, losartan, chlorthalidone Low Salt Diet HLD continue Atorvastatin LFTs stable CKD (saw [facility] unit earlier this year) Current renal fx not stageable with Cr CL 107, GFR > 60 +2 proteinuria noted Monitor renal fx daily Avoid nephrotoxic meds and hypotension Right renal mass CT of the abdomen and pelvis - no significant interval change to the right renal mass,presumed malignant. Seen by urology: Recommended outpatient follow up. BPH Continue Tamsulosin UA neg for UTI Tobacco Dependence (2PPD) Nicotine patch ordered Pt counseled on the benefits of smoking cessation DVT Prophylaxis: Lovenox Code status: Full ongoing need for stay:Right Toe infeciton with possible OM:mri-possible osteomyelitis-need IV antibiotics, surgery follow-up as well as ID evaluation. Wound care also needs to be evaluated. Also due to?renal mass -imaging pending Quality Stroke Does the patient have a stroke diagnosis?: No Reason for No Anti-thrombotic by Day Two: N/A - Med Ordered VTE Prior VTE?: No VTE Risk Level:: Medical - moderate - high VTE Device Contraindication: Treatment Not Indicated VTE Drug Contraindication: N/A - Med Ordered
[2025-03-18 15:43] LABS: Anion Gap 9 (12-20); Blood Urea Nitrogen 8 mg/dL (9-16); Calcium 8.5 mg/dL (8.4-10.2); Carbon Dioxide 30 mmol/L (22-29); Chloride 100 mmol/L (96-108); Creatinine Clr Calc Pharmacy 104.3; Estimated Glomerular Filt Rate > 60; Potassium 3.7 mmol/L (3.3-5.1); Sodium 135 mmol/L (135-145)
--- NOTE | 2025-03-18 16:29 | P.CDIM_ITS ---
PROVIDER RESPONSE TEXT: To clarify, the appropriate diagnosis supported by the clinical indicators: Cellulitis (Right great toe) due to/associated with Diabetes mellitus: cellulitis/osteomyelitis QUERY TEXT: PHYSICIAN'S DOCUMENTATION REQUEST Date of Query: 03/18/2025 12:52 PM EDT Patient Name: Gallo Saini Admit Date: 03/16/2025 Dear Yesica Neri MD, A review of the medical record indicates additional documentation may be needed. Please review below and update the documentation accordingly. Clinical Indicators: H&P 03/16/2025 - Patient reporting experiencing chills with diaphoresis. ED for right great toe pain and signs of infection. Reports the area being as sore and attempted to sapna on his own. Pain and swelling worse. Progress note 03/17/25 - Hyperglycemia, IDDMII MRI: Findings suggesting great toe distal phalangeal osteomyelitis and overlying great toe cellulitis. Patient on Zosyn. Please clarify the following regarding the cellulitis and the DMII: Cellulitis (Right great toe) due to/associated with Diabetes mellitus possible, probable, suspected, cannot rule out No, Cellulitis is not due to/associated with Diabetes mellitus Other (explain) Clinically unable to determine (explain) Thank you, Jazmine Mensah, CCS, CDIS Use of terms such as suspected, likely, concern for, or probable (associated with a specific diagnosis that is being evaluated, monitored, or treated as if it exists) are acceptable and can be coded in the inpatient setting, when documented at the time of discharge. Please use your independent medical judgment in providing your response. THIS QUERY IS PART OF THE PERMANENT MEDICAL RECORD
[2025-03-18 16:30] LABS: Glucose, Whole Blood 199 mg/dL (60-115)
--- NOTE | 2025-03-18 16:30 | W.PM.IDCN ---
History of Present Illness Data of Consult Service Date: 03/18/25 Requesting physician: Yesica Neri Primary Care Provider: Milena Shoemaker MD HPI Reason for consult: right foot OM He presents with worsening right great toe over last two days. He has culture negative. He has great toe distal OM. Review of Systems Review of Systems: Yes all other systems are reviewed and are negative PMFSH Past Medical History Medical History Amputation of left great toe 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 lumbar spine Amputation toe (~08/2023) Ulcer of great toe Asthma Severe obesity Mood disorder MAURI (obstructive sleep apnea) Type 2 diabetes mellitus HLD (hyperlipidemia) HTN (hypertension) Family History Family history: reviewed and not pertinent Social History Social History Household Members: Children Housing: Apartment Do you presently have visiting nurse or other home services: No Alcohol intake: never 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 Tobacco Use Status: Current everyday Tobacco user Tobacco use type: Cigarette Cigarette Packs Per Day: 20 Cigarettes Per Day: 400.0 e-Cigarette/Vaping Use: Never Used Second Hand Smoke Exposure: No Substance Use Type: Marijuana Advance Directives Date on File: 08/30/23 service: No Travel History Ebola Risk: Travel/Contact With Anyone From Affected Area/s: No Has Patient Experienced Ebola Symptoms: No Meds Allergies Allergy/AdvReac Type Severity Reaction Status Date / Time coconut Allergy Rash Verified 03/16/25 00:24 naproxen (From NAPROSYN) AdvReac Severe STOMACH Verified 03/16/25 00:24 UPSET cefepime AdvReac Intermediate Rash Verified 03/16/25 00:24 lisinopril (LISINOPRIL) AdvReac Mild COUGH Verified 03/16/25 00:24 vancomycin AdvReac Vomiting Verified 03/16/25 00:24 SEAFOOD Allergy Unknown ANAPHYLAXIS Uncoded 03/16/25 00:24 Active Medications: Current Medications Acetaminophen (Acetaminophen 325 Mg Tablet) 650 mg PO Q6H PRN PRN Reason: Pain, Mild 1-3,fever,headache Albuterol Sulfate (Albuterol Sulfate 90 Mcg 8 Gm Inhaler) 2 puff INHALE Q4H PRN PRN Reason: Wheezing Albuterol/Ipratropium (Albuterol/Iprat 2.5/0.5mg 3 Ml Ampul.Neb) 3 ml INHALE Q4H PRN PRN Reason: Shortness of Breath/Wheezing Amlodipine Besylate (Amlodipine Besylate 5 Mg Tablet) 5 mg PO DAILY [facility]; Protocol Last Admin: 03/18/25 08:02 Dose: 5 mg Atorvastatin Calcium (Atorvastatin Calcium 80 Mg Tablet) 80 mg PO BEDTIME [facility] On Hold: 03/18/25 15:11 Last Admin: 03/17/25 20:24 Dose: 80 mg Baclofen (Baclofen 10 Mg Tablet) 10 mg PO TID [facility] Last Admin: 03/18/25 14:49 Dose: 10 mg Calcium Carbonate (Calcium Carbonate 750 Mg Tab.Chew) 750 mg PO Q4H PRN PRN Reason: Heartburn Last Admin: 03/16/25 12:14 Dose: 750 mg Dextrose (Dextrose 50 % 25 Gm/50 Ml Syringe) 25 gm IVPUSH Q15M PRN; Protocol PRN Reason: per Hypoglycemia Standing Ord. Docusate Sodium (Docusate Sodium 100 Mg Capsule) 100 mg PO BID [facility] Last Admin: 03/18/25 08:03 Dose: 100 mg Empagliflozin (Empagliflozin 25 Mg Tablet) 25 mg PO DAILY [facility] Last Admin: 03/18/25 08:02 Dose: 25 mg Enoxaparin Sodium (Enoxaparin Sodium 40 Mg/0.4 Ml Syringe) 40 mg SUBCUT Q24H [facility] Last Admin: 03/18/25 02:36 Dose: 40 mg Epinephrine (Epinephrine 1 Mg/Ml Vial) 0.3 mg IM DAILY PRN PRN Reason: Allergic Reaction Fluticasone Propionate (Fluticasone Propionate Nasal 16 Gm [place]) 1 spray NOSTRIL-B BID PRN PRN Reason: Allergy Symptoms Gabapentin (Gabapentin 400 Mg Capsule) 800 mg PO TID [facility] Last Admin: 03/18/25 14:49 Dose: 800 mg Glucose (Glucose Gel 15 Gm Gel..Gram.) 15 gm PO Q15M PRN; Protocol PRN Reason: per Hypoglycemia Standing Ord. Guaifenesin (Guaifenesin 200 Mg/10 Ml 10 Ml Liquid) 10 ml PO Q4H PRN PRN Reason: Cough Hydralazine HCl (Hydralazine Hcl 50 Mg Tablet) 100 mg PO TID [facility]; Protocol Last Admin: 03/18/25 15:37 Dose: 100 mg Hydrochlorothiazide (Hydrochlorothiazide 50 Mg Tablet) 50 mg PO DAILY [facility] Last Admin: 03/18/25 08:03 Dose: 50 mg Hydromorphone HCl (Hydromorphone Hcl 1 Mg/Ml Syringe) 1 mg IVPUSH Q3H PRN; Protocol PRN Reason: Pain, Severe (Pain Scale 7-10) Last Admin: 03/18/25 14:48 Dose: 1 mg Piperacillin Sod/Tazobactam (Sod 3.375 gm/ Sodium Chloride) 50 mls @ 100 mls/hr IV Q6H [facility] Last Infusion: 03/18/25 15:22 Dose: Infused Daptomycin 700 mg/ Sodium (Chloride) 64 mls @ 87.141 mls/hr IV Q24H [facility] Insulin Glargine (Insulin Glargine,Hum.Rec.Anlog 100 Unit/Ml 10 Ml Vial) 60 unit SUBCUT BEDTIME [facility] Last Admin: 03/17/25 20:23 Dose: 60 unit Insulin Human Lispro (Insulin Lispro 100 Unit/Ml 3 Ml Vial) 0 unit SUBCUT QIDACHS [facility]; Protocol Last Admin: 03/18/25 11:25 Dose: 2 unit Labetalol HCl (Labetalol Hcl 100 Mg Tablet) 300 mg PO BID [facility] Last Admin: 03/18/25 08:01 Dose: 300 mg Loratadine (Loratadine 10 Mg Tablet) 10 mg PO DAILY [facility] Last Admin: 03/18/25 08:03 Dose: 10 mg Losartan Potassium (Losartan Potassium 50 Mg Tablet) 100 mg PO DAILY [facility]; Protocol Last Admin: 03/18/25 08:01 Dose: 100 mg Magnesium Hydroxide (Milk Of Magnesia 30 Ml Oral.Susp) 30 ml PO DAILY PRN PRN Reason: Constipation Magnesium Oxide (Magnesium Oxide 400 Mg Tablet) 400 mg PO DAILY [facility] Last Admin: 03/18/25 08:02 Dose: 400 mg Melatonin (Melatonin 3 Mg Tablet) 6 mg PO BEDTIME PRN PRN Reason: Insomnia Nicotine (Nicotine 21 Mg Patch.Td24) 21 mg TRANSDERMA DAILY [facility] Last Admin: 03/18/25 09:32 Dose: 21 mg Non-Formulary Medication (Acetaminophen) 650 mg PO Q8H PRN PRN Reason: pain Nystatin/Triamcinolone Acetonide (Nystatin/Triamcinolone Cream 15 Gm Tube) 1 appl TOPICAL BID PRN PRN Reason: Rash Ondansetron HCl (Ondansetron Hcl 4 Mg/2 Ml Vial) 4 mg IVPUSH Q8H PRN PRN Reason: Nausea and Vomiting Last Admin: 03/16/25 17:01 Dose: 4 mg Ondansetron HCl (Ondansetron Odt 4 Mg Tab.Rapdis) 4 mg TRANSLINGU Q8H PRN PRN Reason: Nausea and Vomiting Oxycodone HCl (Oxycodone Hcl Immed Release 5 Mg Tablet) 5 mg PO Q4H PRN PRN Reason: severe pain Polyethylene Glycol (Polyethylene Glycol 3350 17 Gm Powd.Pack) 17 gm PO DAILY PRN PRN Reason: Constipation Senna (Sennosides 8.6 Mg Tablet) 17.2 mg PO BEDTIME [facility] Last Admin: 03/17/25 20:42 Dose: Not Given Sodium Chloride (0.9 % Sodium Chloride Flush 3 Ml Syringe) 3 ml IVFLUSH [facility] Last Admin: 03/18/25 07:59 Dose: 3 ml Sodium Chloride (0.9 % Sodium Chloride Flush 3 Ml Syringe) 3 ml IVFLUSH [facility] Last Admin: 03/18/25 07:59 Dose: 3 ml Spironolactone (Spironolactone 25 Mg Tablet) 25 mg PO DAILY [facility]; Protocol Last Admin: 03/18/25 08:02 Dose: 25 mg Tamsulosin HCl (Tamsulosin Hcl 0.4 Mg Capsule) 0.4 mg PO DAILY [facility] Last Admin: 03/18/25 08:02 Dose: 0.4 mg Home Medications ?Medication ?Instructions ?Recorded ?Confirmed ?Last Taken ?Type albuterol sulfate 90 mcg/actuation 2 puff inhalation Q4H PRN Wheezing 08/15/23 03/16/25 08/29/23 History aerosol inhaler (Ventolin HFA) atorvastatin 80 mg tablet 80 mg PO BEDTIME 08/15/23 03/16/25 11/21/24 History baclofen 10 mg tablet 10 mg PO TID 08/15/23 03/16/25 11/22/24 History cetirizine 10 mg tablet 10 mg PO DAILY 08/15/23 03/16/25 11/22/24 History chlorthalidone 50 mg tablet 50 mg PO DAILY 08/15/23 03/16/25 11/22/24 History empagliflozin 25 mg tablet 25 mg PO DAILY 08/15/23 03/16/25 11/22/24 History (Jardiance) epinephrine 0.3 mg/0.3 mL 0.3 mg IM DIRECTED PRN Allergic 08/15/23 03/16/25 Unknown History injection, auto-injector Reaction fluticasone propionate 50 1 spray intranasal BID PRN Allergy 08/15/23 03/16/25 Unknown History mcg/actuation nasal Symptoms spray,suspension gabapentin 800 mg tablet 800 mg PO TID 08/15/23 03/16/25 11/22/24 History losartan 100 mg tablet 100 mg PO DAILY 08/15/23 03/16/25 11/22/24 History magnesium oxide 400 mg (241.3 mg 400 mg PO DAILY 08/15/23 03/16/25 11/22/24 History magnesium) tablet oxycodone 5 mg tablet 5 mg PO Q6H PRN severe pain 08/15/23 03/16/25 01/01/24 History tamsulosin 0.4 mg capsule 0.4 mg PO DAILY 08/15/23 03/16/25 11/22/24 History acetaminophen 650 mg 650 mg PO Q8H PRN pain 01/02/24 03/16/25 Unknown History tablet,extended release hydralazine 100 mg tablet 100 mg PO TID 06/25/24 03/16/25 11/22/24 History labetalol 300 mg tablet 300 mg PO BID 06/25/24 03/16/25 11/22/24 History ondansetron HCl 4 mg tablet 4 mg PO Q8H PRN Nausea And Vomiting 06/25/24 03/16/25 Unknown History clotrimazole-betamethasone 1 1 appl topical BID PRN Rash 11/22/24 03/16/25 Unknown History %-0.05 % topical cream insulin aspart U-100 100 unit/mL 10 unit subcut TIDAC 11/22/24 03/16/25 11/22/24 History subcutaneous solution (Novolog U-100 Insulin aspart) polyethylene glycol 3350 17 gram 17 g PO DAILY PRN Constipation 03/16/25 03/16/25 Unknown History oral powder packet spironolactone 25 mg tablet 25 mg PO DAILY 03/16/25 03/16/25 Unknown History tirzepatide 2.5 mg/0.5 mL 2.5 mg subcut TH 03/16/25 03/16/25 Unknown History subcutaneous pen injector (Leonardo) Physical Exam Vital Signs: Vital Signs: Last Vital Signs Temp 97 F 03/18/25 15:54 Pulse 67 03/18/25 15:54 Resp 16 03/18/25 15:54 BP 152/74 H 03/18/25 15:54 Pulse Ox 96 03/18/25 15:54 O2 Del Method Room Air 03/18/25 15:54 BMI result Body Mass Index 39.3 Const: General: cooperative HEENT: Head: Yes normal to inspection Face and sinus: Yes normal facial exam Mouth: Normal oral and palatal mucosa present Teeth and gingiva: dentition normal Eyes: General: appearance normal, both eyes and all related structures Pupils: Equal, round and reactive pupils present Resp: Effort & Inspection: normal respiratory effort Cardio: Rate: regular rate Rhythm: regular rhythm GI: Palpation (GI): Soft to palpation and nontender : General: Yes no CVA tenderness Back/Spine/Pelvis: Back: no CVA tenderness Skin: General skin exam: no rashes or lesions noted Neuro: General: moves all extremities Cranial nerves: Yes Equal, round and reactive pupils present Extrem: Other: right great toe ulcer,malodor,swelling Psych: Appearance: grossly normal Results Labs 03/17/25 13:33 03/18/25 15:22 Labs: BMP 03/18/25 15:22 Sodium 135 Potassium 3.7 Chloride 100 Carbon Dioxide 30 H BUN 8 L Creatinine 1.03 Calcium 8.5 Cardiac Enzymes 03/18/25 Range/Units 15:22 Total Creatine Kinase 98 (38-174) U/L Microbiology Microbiology Results: Microbiology 03/16/25 00:59 Blood - Venous Blood Culture - Preliminary No growth after 48 hours. 03/16/25 00:59 Blood - Venous Blood Culture - Preliminary No growth after 48 hours. Assessment and Plan (1) Diabetic foot ulcer: Qualifiers: Diabetic foot ulcer location: toe Diabetes mellitus type: type 2 Laterality: right Non-pressure ulcer stage: unspecified non-pressure ulcer stage Qualified Code(s): E11.621 - Type 2 diabetes mellitus with foot ulcer; L97.519 - Non-pressure chronic ulcer of other part of right foot with unspecified severity Status: Acute (2) CKD (chronic kidney disease): Status: Acute Plan Right great toe OM Would give IV Daptomycin for six weeks with weekly cpk and creatinine.
[2025-03-18 20:42] LABS: Glucose, Whole Blood 196 mg/dL (60-115)
[2025-03-18] MEDS: Insulin Glargine,Hum.rec.anlog 100 UNIT/ML 10 ML VIAL 60 UNIT SUBCUT (20:55)
[2025-03-19] VITALS (8 sets, daily range): BP systolic 119–153; BP diastolic 64–82; PULSE 59–77; RESP 16–19; TEMP 36.6–37.3; O2SAT 93–96
[2025-03-19] MEDS: oxyCODONE HCl Immed Release 5 MG TABLET PO ×4 (03:57→23:58)
[2025-03-19 07:42] LABS: Glucose, Whole Blood 176 mg/dL (60-115)
[2025-03-19] MEDS: Nicotine 21 MG PATCH.TD24 TRANSDERMA (08:01)
[2025-03-19] MEDS: 0.9 % Sodium Chloride Flush 3 ML SYRINGE IVFLUSH ×5 (08:07→19:39)
--- NOTE | 2025-03-19 08:08 | P.PNGS_ITS ---
Subjective Subjective Date of Service: 03/19/25 Interval history: Reports pain in the right great toe. Physical Exam 2 Vital Signs: Vital Signs: Last Vital Signs Temp 98.2 F 03/19/25 07:38 Pulse 61 03/19/25 07:38 Resp 18 03/19/25 07:38 BP 144/67 H 03/19/25 07:38 Pulse Ox 94 03/19/25 07:38 O2 Del Method Room Air 03/19/25 07:38 BMI result Body Mass Index 39.3 Resp: Effort & Inspection: normal respiratory effort Skin: Other: Warm, dry, no rash Extrem: Other: Dressings changed to right great toe. Erythema appears to be improving although open wound remains at distal phalanx.. Clean dressings applied. Objective Data Active Medications Acetaminophen (Acetaminophen 325 Mg Tablet) 650 mg PO Q6H PRN PRN Reason: Pain, Mild 1-3,fever,headache Albuterol Sulfate (Albuterol Sulfate 90 Mcg 8 Gm Inhaler) 2 puff INHALE Q4H PRN PRN Reason: Wheezing Albuterol/Ipratropium (Albuterol/Iprat 2.5/0.5mg 3 Ml Ampul.Neb) 3 ml INHALE Q4H PRN PRN Reason: Shortness of Breath/Wheezing Amlodipine Besylate (Amlodipine Besylate 5 Mg Tablet) 5 mg PO DAILY [facility]; Protocol Last Admin: 03/19/25 08:04 Dose: 5 mg Documented By: CAMACHO Atorvastatin Calcium (Atorvastatin Calcium 80 Mg Tablet) 80 mg PO BEDTIME [facility] On Hold: 03/18/25 15:11 Last Admin: 03/17/25 20:24 Dose: 80 mg Documented By: EDI Baclofen (Baclofen 10 Mg Tablet) 10 mg PO TID [facility] Last Admin: 03/19/25 08:03 Dose: 10 mg Documented By: CAMACHO Calcium Carbonate (Calcium Carbonate 750 Mg Tab.Chew) 750 mg PO Q4H PRN PRN Reason: Heartburn Last Admin: 03/16/25 12:14 Dose: 750 mg Documented By: LUCIAME Dextrose (Dextrose 50 % 25 Gm/50 Ml Syringe) 25 gm IVPUSH Q15M PRN; Protocol PRN Reason: per Hypoglycemia Standing Ord. Docusate Sodium (Docusate Sodium 100 Mg Capsule) 100 mg PO BID [facility] Last Admin: 03/19/25 08:04 Dose: 100 mg Documented By: CAMACHO Empagliflozin (Empagliflozin 25 Mg Tablet) 25 mg PO DAILY [facility] Last Admin: 03/19/25 08:02 Dose: 25 mg Documented By: CAMACHO Enoxaparin Sodium (Enoxaparin Sodium 40 Mg/0.4 Ml Syringe) 40 mg SUBCUT Q24H [facility] Last Admin: 03/19/25 02:17 Dose: 40 mg Documented By: VIRIDIANA Epinephrine (Epinephrine 1 Mg/Ml Vial) 0.3 mg IM DAILY PRN PRN Reason: Allergic Reaction Fluticasone Propionate (Fluticasone Propionate Nasal 16 Gm [place]) 1 spray NOSTRIL-B BID PRN PRN Reason: Allergy Symptoms Gabapentin (Gabapentin 400 Mg Capsule) 800 mg PO TID [facility] Last Admin: 03/19/25 08:03 Dose: 800 mg Documented By: CAMACHO Glucose (Glucose Gel 15 Gm Gel..Gram.) 15 gm PO Q15M PRN; Protocol PRN Reason: per Hypoglycemia Standing Ord. Guaifenesin (Guaifenesin 200 Mg/10 Ml 10 Ml Liquid) 10 ml PO Q4H PRN PRN Reason: Cough Hydralazine HCl (Hydralazine Hcl 50 Mg Tablet) 100 mg PO TID [facility]; Protocol Last Admin: 03/19/25 08:03 Dose: 100 mg Documented By: CAMCAHO Hydrochlorothiazide (Hydrochlorothiazide 50 Mg Tablet) 50 mg PO DAILY [facility] Last Admin: 03/19/25 08:03 Dose: 50 mg Documented By: CAMACHO Hydromorphone HCl (Hydromorphone Hcl 1 Mg/Ml Syringe) 1 mg IVPUSH Q3H PRN; Protocol PRN Reason: Pain, Severe (Pain Scale 7-10) Last Admin: 03/19/25 06:23 Dose: 1 mg Documented By: VIRIDIANA Piperacillin Sod/Tazobactam (Sod 3.375 gm/ Sodium Chloride) 50 mls @ 100 mls/hr IV Q6H [facility] Last Infusion: 03/19/25 02:54 Dose: Infused Documented By: VIRIDIANA Daptomycin 700 mg/ Sodium (Chloride) 64 mls @ 87.141 mls/hr IV Q24H [facility] Last Infusion: 03/18/25 18:29 Dose: Infused Documented By: CAMACHO Insulin Glargine (Insulin Glargine,Hum.Rec.Anlog 100 Unit/Ml 10 Ml Vial) 60 unit SUBCUT BEDTIME [facility] Last Admin: 03/18/25 20:55 Dose: 60 unit Documented By: VIRIDIANA Insulin Human Lispro (Insulin Lispro 100 Unit/Ml 3 Ml Vial) 0 unit SUBCUT QIDACHS [facility]; Protocol Last Admin: 03/19/25 07:59 Dose: 4 unit Documented By: CAMACHO Labetalol HCl (Labetalol Hcl 100 Mg Tablet) 300 mg PO BID [facility] Last Admin: 03/19/25 08:02 Dose: 300 mg Documented By: CAMACHO Loratadine (Loratadine 10 Mg Tablet) 10 mg PO DAILY [facility] Last Admin: 03/19/25 08:04 Dose: 10 mg Documented By: CAMACHO Losartan Potassium (Losartan Potassium 50 Mg Tablet) 100 mg PO DAILY [facility]; Protocol Last Admin: 03/19/25 08:02 Dose: 100 mg Documented By: CAMACHO Magnesium Hydroxide (Milk Of Magnesia 30 Ml Oral.Susp) 30 ml PO DAILY PRN PRN Reason: Constipation Magnesium Oxide (Magnesium Oxide 400 Mg Tablet) 400 mg PO DAILY [facility] Last Admin: 03/19/25 08:04 Dose: 400 mg Documented By: CAMACHO Melatonin (Melatonin 3 Mg Tablet) 6 mg PO BEDTIME PRN PRN Reason: Insomnia Nicotine (Nicotine 21 Mg Patch.Td24) 21 mg TRANSDERMA DAILY [facility] Last Admin: 03/19/25 08:01 Dose: 21 mg Documented By: CAMACHO Non-Formulary Medication (Acetaminophen) 650 mg PO Q8H PRN PRN Reason: pain Nystatin/Triamcinolone Acetonide (Nystatin/Triamcinolone Cream 15 Gm Tube) 1 appl TOPICAL BID PRN PRN Reason: Rash Ondansetron HCl (Ondansetron Hcl 4 Mg/2 Ml Vial) 4 mg IVPUSH Q8H PRN PRN Reason: Nausea and Vomiting Last Admin: 03/16/25 17:01 Dose: 4 mg Documented By: DANE Ondansetron HCl (Ondansetron Odt 4 Mg Tab.Rapdis) 4 mg TRANSLINGU Q8H PRN PRN Reason: Nausea and Vomiting Oxycodone HCl (Oxycodone Hcl Immed Release 5 Mg Tablet) 5 mg PO Q4H PRN PRN Reason: severe pain Last Admin: 03/19/25 08:02 Dose: 5 mg Documented By: CAMACHO Polyethylene Glycol (Polyethylene Glycol 3350 17 Gm Powd.Pack) 17 gm PO DAILY PRN PRN Reason: Constipation Senna (Sennosides 8.6 Mg Tablet) 17.2 mg PO BEDTIME [facility] Last Admin: 03/18/25 20:56 Dose: 17.2 mg Documented By: VIRIDIANA Sodium Chloride (0.9 % Sodium Chloride Flush 3 Ml Syringe) 3 ml IVFLUSH [facility] Last Admin: 03/19/25 08:07 Dose: 3 ml Documented By: CAMACHO Sodium Chloride (0.9 % Sodium Chloride Flush 3 Ml Syringe) 3 ml IVFLUSH [facility] Last Admin: 03/18/25 21:06 Dose: Not Given Documented By: VIRIDIANA Non-Admin Reason: Previously Administered Spironolactone (Spironolactone 25 Mg Tablet) 25 mg PO DAILY [facility]; Protocol Last Admin: 03/19/25 08:03 Dose: 25 mg Documented By: CAMACHO Tamsulosin HCl (Tamsulosin Hcl 0.4 Mg Capsule) 0.4 mg PO DAILY [facility] Last Admin: 03/19/25 08:04 Dose: 0.4 mg Documented By: CAMACHO Labs 03/17/25 13:33 03/18/25 15:22 Labs: Laboratory Results - last 24 hr 03/18/25 03/18/25 03/18/25 09:45 11:12 15:22 Anion Gap 9 L Estim Creat Clear Calc 104.3 Estimated GFR > 60 POC Glucose 112 Random Glucose 214 H Calcium 8.5 Total Creatine Kinase 98 Stl C. cayetanensis PCR Not Detected Stool Rotavirus A PCR Not Detected Stl Adenov F 40/41 PCR Not Detected Stool Astrovirus (PCR) Not Detected Stool Campylobacter PCR Not Detected Stool Cryptosporidium PCR Not Detected Stl Sh Tox Pr E STEC PCR Not Detected Stool E coli O157 PCR Not applicable Stl Enterotoxigenic E PCR Not Detected Stool EPEC (PCR) Not Detected Stool EAEC (PCR) Not Detected Stl E. histolytica PCR Not Detected Stool Giardia Lamblia PCR Not Detected Stl P. shigelloides PCR Not Detected Stool Salmonella PCR Not Detected Stool Sapovirus (PCR) Not Detected Stl Shigella/EIEC PCR Not Detected St Y.enterocolitica PCR Not Detected Stool Vibrio (PCR) Not Detected Stl Vibrio cholerae PCR Not Detected Stl Norovirus GI/GII PCR Not Detected C. difficile Tox B Gene NEGATIVE 03/18/25 03/18/25 03/19/25 16:14 20:38 07:37 Anion Gap Estim Creat Clear Calc Estimated GFR POC Glucose 199 H 196 H 176 H Random Glucose Calcium Total Creatine Kinase Stl C. cayetanensis PCR Stool Rotavirus A PCR Stl Adenov F 40/41 PCR Stool Astrovirus (PCR) Stool Campylobacter PCR Stool Cryptosporidium PCR Stl Sh Tox Pr E STEC PCR Stool E coli O157 PCR Stl Enterotoxigenic E PCR Stool EPEC (PCR) Stool EAEC (PCR) Stl E. histolytica PCR Stool Giardia Lamblia PCR Stl P. shigelloides PCR Stool Salmonella PCR Stool Sapovirus (PCR) Stl Shigella/EIEC PCR St Y.enterocolitica PCR Stool Vibrio (PCR) Stl Vibrio cholerae PCR Stl Norovirus GI/GII PCR C. difficile Tox B Gene Procedures Date of Service Date of Service: 03/19/25 Progress Note: A&P Assessment and plan (1) Type 2 diabetes mellitus: Status: Acute (2) Ulcer of great toe: Status: Acute Plan 54-year-old male patient with diabetic associated right great toe osteomyelitis confirmed by MRI of the right foot. Patient currently on IV antibiotics with some improvement in the surrounding cellulitis. Patient again wishing to proceed with toe amputation as with his left foot. 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 Patient tentatively scheduled for for right great toe amputation pending medical clearance. We will continue to monitor. Time Spent With Patient Time: Total time managing care of this patient today ____ minutes. Quality Stroke Does the patient have a stroke diagnosis?: No Reason for No Anti-thrombotic by Day Two: N/A - Med Ordered VTE Prior VTE?: No VTE Risk Level:: Medical - moderate - high VTE Device Contraindication: Treatment Not Indicated VTE Drug Contraindication: N/A - Med Ordered
[2025-03-19 11:39] LABS: Glucose, Whole Blood 160 mg/dL (60-115)
--- NOTE | 2025-03-19 13:55 | HO.PM.IMPN ---
Subjective Subjective Date of Service: 03/19/25 Interval History: foot infection Review of Systems foot pain/erythema seems similar no fevers Physical Exam Exam: Exam: Appearance: Alert.? Oriented X3.? cvs: rrr, [id number] . res: clear to auscultation ,no rhonchii or wheezing abd: no rebound or guarding ,nt, bs present. ext pulses present , no cyanosis . right lower ext: no edema in L lower extremities, right big toe swollen, discolored, with 2 openings 1 on top and 1 on the bottom with a noted ulcer that was recently lanced by patient neuro: axo3 , nonfocal. Vital Signs: Vital Signs: Last Vital Signs Temp 97.8 F 03/19/25 11:31 Pulse 59 03/19/25 11:31 Resp 17 03/19/25 11:31 BP 143/73 H 03/19/25 11:31 Pulse Ox 95 03/19/25 11:31 O2 Del Method CPAP 03/19/25 11:31 BMI result Body Mass Index 39.3 Objective Data Active Medications Acetaminophen (Acetaminophen 325 Mg Tablet) 650 mg PO Q6H PRN PRN Reason: Pain, Mild 1-3,fever,headache Albuterol Sulfate (Albuterol Sulfate 90 Mcg 8 Gm Inhaler) 2 puff INHALE Q4H PRN PRN Reason: Wheezing Albuterol/Ipratropium (Albuterol/Iprat 2.5/0.5mg 3 Ml Ampul.Neb) 3 ml INHALE Q4H PRN PRN Reason: Shortness of Breath/Wheezing Amlodipine Besylate (Amlodipine Besylate 5 Mg Tablet) 5 mg PO DAILY [facility]; Protocol Last Admin: 03/19/25 08:04 Dose: 5 mg Documented By: CAMACHO Atorvastatin Calcium (Atorvastatin Calcium 80 Mg Tablet) 80 mg PO BEDTIME [facility] On Hold: 03/18/25 15:11 Last Admin: 03/17/25 20:24 Dose: 80 mg Documented By: EDI Baclofen (Baclofen 10 Mg Tablet) 10 mg PO TID [facility] Last Admin: 03/19/25 08:03 Dose: 10 mg Documented By: CAMACHO Calcium Carbonate (Calcium Carbonate 750 Mg Tab.Chew) 750 mg PO Q4H PRN PRN Reason: Heartburn Last Admin: 03/16/25 12:14 Dose: 750 mg Documented By: DANE Dextrose (Dextrose 50 % 25 Gm/50 Ml Syringe) 25 gm IVPUSH Q15M PRN; Protocol PRN Reason: per Hypoglycemia Standing Ord. Docusate Sodium (Docusate Sodium 100 Mg Capsule) 100 mg PO BID [facility] Last Admin: 03/19/25 08:04 Dose: 100 mg Documented By: CAMACHO Empagliflozin (Empagliflozin 25 Mg Tablet) 25 mg PO DAILY [facility] Last Admin: 03/19/25 08:02 Dose: 25 mg Documented By: CAMACHO Enoxaparin Sodium (Enoxaparin Sodium 40 Mg/0.4 Ml Syringe) 40 mg SUBCUT Q24H [facility] Last Admin: 03/19/25 02:17 Dose: 40 mg Documented By: VIRIDIANA Epinephrine (Epinephrine 1 Mg/Ml Vial) 0.3 mg IM DAILY PRN PRN Reason: Allergic Reaction Fluticasone Propionate (Fluticasone Propionate Nasal 16 Gm [place]) 1 spray NOSTRIL-B BID PRN PRN Reason: Allergy Symptoms Gabapentin (Gabapentin 400 Mg Capsule) 800 mg PO TID [facility] Last Admin: 03/19/25 08:03 Dose: 800 mg Documented By: CAMACHO Glucose (Glucose Gel 15 Gm Gel..Gram.) 15 gm PO Q15M PRN; Protocol PRN Reason: per Hypoglycemia Standing Ord. Guaifenesin (Guaifenesin 200 Mg/10 Ml 10 Ml Liquid) 10 ml PO Q4H PRN PRN Reason: Cough Hydralazine HCl (Hydralazine Hcl 50 Mg Tablet) 100 mg PO TID [facility]; Protocol Last Admin: 03/19/25 08:03 Dose: 100 mg Documented By: CAMACHO Hydrochlorothiazide (Hydrochlorothiazide 50 Mg Tablet) 50 mg PO DAILY [facility] Last Admin: 03/19/25 08:03 Dose: 50 mg Documented By: CAMACHO Hydromorphone HCl (Hydromorphone Hcl 1 Mg/Ml Syringe) 1 mg IVPUSH Q3H PRN; Protocol PRN Reason: Pain, Severe (Pain Scale 7-10) Last Admin: 03/19/25 13:06 Dose: 1 mg Documented By: CAMACHO Piperacillin Sod/Tazobactam (Sod 3.375 gm/ Sodium Chloride) 50 mls @ 100 mls/hr IV Q6H [facility] Last Infusion: 03/19/25 09:59 Dose: Infused Documented By: CAMACHO Daptomycin 700 mg/ Sodium (Chloride) 64 mls @ 87.141 mls/hr IV Q24H [facility] Last Infusion: 03/18/25 18:29 Dose: Infused Documented By: CAMACHO Insulin Glargine (Insulin Glargine,Hum.Rec.Anlog 100 Unit/Ml 10 Ml Vial) 60 unit SUBCUT BEDTIME [facility] Last Admin: 03/18/25 20:55 Dose: 60 unit Documented By: VIRIDIANA Insulin Human Lispro (Insulin Lispro 100 Unit/Ml 3 Ml Vial) 0 unit SUBCUT QIDACHS [facility]; Protocol Last Admin: 03/19/25 12:20 Dose: 4 unit Documented By: CAMACHO Labetalol HCl (Labetalol Hcl 100 Mg Tablet) 300 mg PO BID [facility] Last Admin: 03/19/25 08:02 Dose: 300 mg Documented By: CAMACHO Loratadine (Loratadine 10 Mg Tablet) 10 mg PO DAILY [facility] Last Admin: 03/19/25 08:04 Dose: 10 mg Documented By: CAMACHO Losartan Potassium (Losartan Potassium 50 Mg Tablet) 100 mg PO DAILY [facility]; Protocol Last Admin: 03/19/25 08:02 Dose: 100 mg Documented By: CAMACHO Magnesium Hydroxide (Milk Of Magnesia 30 Ml Oral.Susp) 30 ml PO DAILY PRN PRN Reason: Constipation Magnesium Oxide (Magnesium Oxide 400 Mg Tablet) 400 mg PO DAILY [facility] Last Admin: 03/19/25 08:04 Dose: 400 mg Documented By: CAMACHO Melatonin (Melatonin 3 Mg Tablet) 6 mg PO BEDTIME PRN PRN Reason: Insomnia Nicotine (Nicotine 21 Mg Patch.Td24) 21 mg TRANSDERMA DAILY [facility] Last Admin: 03/19/25 08:01 Dose: 21 mg Documented By: CAMACHO Non-Formulary Medication (Acetaminophen) 650 mg PO Q8H PRN PRN Reason: pain Nystatin/Triamcinolone Acetonide (Nystatin/Triamcinolone Cream 15 Gm Tube) 1 appl TOPICAL BID PRN PRN Reason: Rash Ondansetron HCl (Ondansetron Hcl 4 Mg/2 Ml Vial) 4 mg IVPUSH Q8H PRN PRN Reason: Nausea and Vomiting Last Admin: 10/04/25 17:01 Dose: 4 mg Documented By: DANE Ondansetron HCl (Ondansetron Odt 4 Mg Tab.Rapdis) 4 mg TRANSLINGU Q8H PRN PRN Reason: Nausea and Vomiting Oxycodone HCl (Oxycodone Hcl Immed Release 5 Mg Tablet) 5 mg PO Q4H PRN PRN Reason: severe pain Last Admin: 03/19/25 08:02 Dose: 5 mg Documented By: CAMACHO Polyethylene Glycol (Polyethylene Glycol 3350 17 Gm Powd.Pack) 17 gm PO DAILY PRN PRN Reason: Constipation Senna (Sennosides 8.6 Mg Tablet) 17.2 mg PO BEDTIME [facility] Last Admin: 03/18/25 20:56 Dose: 17.2 mg Documented By: VIRIDIANA Sodium Chloride (0.9 % Sodium Chloride Flush 3 Ml Syringe) [facility] Last Admin: 03/19/25 08:07 Dose: 3 ml Documented By: CAMACHO Sodium Chloride (0.9 % Sodium Chloride Flush 3 Ml Syringe) 3 ml IVFLUSH [facility] Last Admin: 03/19/25 08:08 Dose: 3 ml Documented By: CAMACHO Spironolactone (Spironolactone 25 Mg Tablet) 25 mg PO DAILY [facility]; Protocol Last Admin: 03/19/25 08:03 Dose: 25 mg Documented By: CAMACHO Tamsulosin HCl (Tamsulosin Hcl 0.4 Mg Capsule) 0.4 mg PO DAILY [facility] Last Admin: 03/19/25 08:04 Dose: 0.4 mg Documented By: CAMACHO Labs 03/17/25 13:33 03/18/25 15:22 Labs: Laboratory Results - last 24 hr 03/18/25 03/18/25 03/18/25 15:22 16:14 20:38 Anion Gap 9 L Estim Creat Clear Calc 104.3 Estimated GFR > 60 POC Glucose 199 H 196 H Random Glucose 214 H Calcium 8.5 Total Creatine Kinase 98 03/19/25 03/19/25 07:37 11:31 Anion Gap Estim Creat Clear Calc Estimated GFR POC Glucose 176 H 160 H Random Glucose Calcium Total Creatine Kinase Assessment and Plan (1) Abdominal pain: Status: Resolved (2) Rectal bleeding: Status: Resolved Plan 54 yo male with PMH IDDMII, HTN, HLD, 08/2023 L4/L5 1.2 cm abscess paraspinal area requiring transfer to [facility], left big toe amputation, chronic Foot R diabetic ulcer, Asthma, COPD/tobacco dependence, CKD, BPH was BIBA to ED for right great toe pain and signs of infection along with significant lower back pain. Patient currently denies any chest pain, shortness of breath, nausea or vomiting. Patient has reported experiencing chills with diaphoresis or the last 2 weeks, but denies fever. Patient was admitted back in November of 2024 for similar problems. Pt states he wants the R big toe amputated. Patient does not meet criteria for sepsis on admission. Right Toe infeciton with possible OM mrI:Findings suggesting great toe distal phalangeal osteomyelitis and overlying great toe cellulitis. Great toe flexor and extensor tendon sheath fluid, possible tenosynovitis. Clinical follow-up recommended. Pt on Zosyn, refused Vancomycin due to adverse effect of vomiting, added linezolid (rec over doxy for OM via literature) Infectious Disease consulted Blood cultures negative for 48 hrs General Surgery: s/p i&D (on 03/17) and ID Consulted . lumbar back pain with history of L4/L5 abscess (2023 - patient required transfer to [facility]) Pain improving Lumbar MRI negative for any acute finding ambulating slowly better, denies any urinary or bowel incontinence, no numbness or weakness . continue pain control pain meds Dilaudid for back pain Diabetic Foot Ulcer (R toe) Wound care consulted Patient Lanced this area on his own about proximally 3 weeks ago using a cuticle cutter, hot water and alcohol pads Hyperglycemia/ IDDMII Pt was using more insulin than usual for elevated levels (secondary to infection) and ran out No DKA noted IVF provided, BG trending down SSI Diabetic diet Lantus 60U HS, lowered normal dose due to risk of hypoglycemia HTN BP stable currently Avoid hypotension continue amlodipine, labetolol, losartan, chlorthalidone Low Salt Diet HLD continue Atorvastatin LFTs stable CKD (saw morning babysitter earlier this year) Current renal fx not stageable with Cr CL 107, GFR > 60 +2 proteinuria noted Monitor renal fx daily Avoid nephrotoxic meds and hypotension Right renal mass CT of the abdomen and pelvis - no significant interval change to the right renal mass,presumed malignant. Seen by urology: Recommended outpatient follow up. BPH Continue Tamsulosin UA neg for UTI Tobacco Dependence (2PPD) Nicotine patch ordered Pt counseled on the benefits of smoking cessation DVT Prophylaxis: Lovenox Code status: Full ongoing need for stay:Right Toe infeciton with possible OM:mri-possible osteomyelitis-need IV antibiotics, surgery follow-up as well as ID evaluation. Wound care also needs to be evaluated. Also due to?renal mass -imaging pending Quality Stroke Does the patient have a stroke diagnosis?: No Reason for No Anti-thrombotic by Day Two: N/A - Med Ordered VTE Prior VTE?: No VTE Risk Level:: Medical - moderate - high VTE Device Contraindication: Treatment Not Indicated VTE Drug Contraindication: N/A - Med Ordered
--- NOTE | 2025-03-19 15:26 | P.CDIM_ITS ---
PROVIDER RESPONSE TEXT: To clarify, the appropriate diagnosis supported by the clinical indicators: Acute osteomyelitis QUERY TEXT: PHYSICIAN'S DOCUMENTATION REQUEST Date of Query: 03/19/2025 12:49 PM EDT Patient Name: Gallo Saini Admit Date: 03/16/2025 Dear Yesica Neri MD, A review of the medical record indicates additional documentation may be needed. Please review below and update the documentation accordingly. Clinical Indicators: Progress note 03/18/25 - Right toe infection with possible osteomyelitis. MRI findings suggesting great toe distal phalangeal osteomyelitis and overlying great toe cellulitis. Patient on Zosyn. ID - Right great toe OM Would give IV Daptomycin six weeks with weekly cpk and creatinine. Based on the above, please clarify in the Progress Notes further specificity regarding the acuity of the Osteomyelitis right great toe: Acute osteomyelitis Subacute osteomyelitis Chronic osteomyelitis Chronic multifocal osteomyelitis Other (explain) Clinically unable to determine (explain) Thank you, Jazmine Mensah, CCS, CDIS Use of terms such as suspected, likely, concern for, or probable (associated with a specific diagnosis that is being evaluated, monitored, or treated as if it exists) are acceptable and can be coded in the inpatient setting, when documented at the time of discharge. Please use your independent medical judgment in providing your response. THIS QUERY IS PART OF THE PERMANENT MEDICAL RECORD
[2025-03-19 17:51] LABS: Glucose, Whole Blood 190 mg/dL (60-115)
[2025-03-19 20:20] LABS: Glucose, Whole Blood 206 mg/dL (60-115)
[2025-03-19] MEDS: Insulin Glargine,Hum.rec.anlog 100 UNIT/ML 10 ML VIAL 60 UNIT SUBCUT (21:01)
[2025-03-20 04:00] VITALS: BP 141/73; PULSE 61; RESP 18; TEMP 36.7; O2SAT 96
[2025-03-20] MEDS: oxyCODONE HCl Immed Release 5 MG TABLET 10 MG PO ×4 (06:54→21:04)
[2025-03-20] MEDS: Nicotine 21 MG PATCH.TD24 TRANSDERMA (07:40)
[2025-03-20 07:44] VITALS: BP 144/90; PULSE 66; RESP 18; TEMP 36.7; O2SAT 98
[2025-03-20 07:52] LABS: Glucose, Whole Blood 135 mg/dL (60-115)
--- NOTE | 2025-03-20 09:41 | HO.ANESPROP2 ---
HPI - Anesthesia Eval Consult details Narrative: 54 yr old male for right 1st Toe Amputation Asthma/COPD/tobacco dependence Uncontrolled Type 2 DM: A1C 11.3% Anesthesia Pre-Procedure Meds Is the patient on any of the following meds?: GLP1/DPP4 and SGLT2 Inhib PMFSH Active Problems Active Problems: All Active Problems Renal lesion (Acute) Hyperglycemia (Acute) Osteomyelitis (Acute) Hyperglycemia (Acute) Toe infection (Acute) Diabetic foot ulcer (Acute) Left shoulder pain (Acute) Cervical radiculopathy (Acute) Low back pain (Acute) Wound of foot (Acute) HTN (hypertension) (Acute) CKD (chronic kidney disease) (Acute) Toe pain, left (Acute) Leg pain (Acute) Acute osteomyelitis of lumbar spine (Acute) Type 2 diabetes mellitus (Acute) Asthma (Acute) MAURI (obstructive sleep apnea) (Acute) Epidural abscess, L2-L5 (Acute) Acute low back pain (Acute) Ulcer of great toe (Acute) Cellulitis of great toe, left (Acute) Past Medical History Medical History (Updated 03/31/25 @ 00:00 by Background Daemon) Cigarette smoker Marijuana smoker Hx of renal calculi Amputation of left great toe 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 lumbar spine Amputation toe (~08/2023) Ulcer of great toe Asthma Severe obesity Mood disorder MAURI (obstructive sleep apnea) Type 2 diabetes mellitus HLD (hyperlipidemia) HTN (hypertension) Functional capacity: uses cane/walker Surgical History Surgical History (Updated 03/31/25 @ 00:00 by Background Daemon) History of prostate surgery Hx of amputation Hx of esophagogastroduodenoscopy Hx of colonoscopy History of Problems with Anesthesia: No Social History Social History Household Members: Children Housing: Apartment Do you presently have visiting nurse or other home services: No Alcohol intake: never Comment: Counts correct Patient Tobacco Use Status: Current everyday Tobacco user Tobacco use type: Cigarette Cigarette Packs Per Day: 20 Cigarettes Per Day: 400.0 e-Cigarette/Vaping Use: Never Used Second Hand Smoke Exposure: No Substance Use Type: Marijuana Advance Directives Date on File: 08/30/23 service: No Meds Allergies Allergy/AdvReac Type Severity Reaction Status Date / Time coconut Allergy Rash Verified 03/16/25 00:24 naproxen (From NAPROSYN) AdvReac Severe STOMACH Verified 03/16/25 00:24 UPSET cefepime AdvReac Intermediate Rash Verified 03/16/25 00:24 lisinopril (LISINOPRIL) AdvReac Mild COUGH Verified 03/16/25 00:24 vancomycin AdvReac Vomiting Verified 03/16/25 00:24 SEAFOOD Allergy Unknown ANAPHYLAXIS Uncoded 03/16/25 00:24 Active Medications: Current Medications Acetaminophen (Acetaminophen 325 Mg Tablet) 650 mg PO Q6H PRN PRN Reason: Pain, Mild 1-3,fever,headache Last Admin: 03/20/25 09:34 Dose: 650 mg Albuterol Sulfate (Albuterol Sulfate 90 Mcg 8 Gm Inhaler) 2 puff INHALE Q4H PRN PRN Reason: Wheezing Albuterol/Ipratropium (Albuterol/Iprat 2.5/0.5mg 3 Ml Ampul.Neb) 3 ml INHALE Q4H PRN PRN Reason: Shortness of Breath/Wheezing Amlodipine Besylate (Amlodipine Besylate 5 Mg Tablet) 5 mg PO DAILY [facility]; Protocol Last Admin: 03/20/25 07:42 Dose: 5 mg Atorvastatin Calcium (Atorvastatin Calcium 80 Mg Tablet) 80 mg PO BEDTIME [facility] On Hold: 03/18/25 15:11 Last Admin: 03/17/25 20:24 Dose: 80 mg Baclofen (Baclofen 10 Mg Tablet) 10 mg PO TID [facility] Last Admin: 03/20/25 07:42 Dose: 10 mg Calcium Carbonate (Calcium Carbonate 750 Mg Tab.Chew) 750 mg PO Q4H PRN PRN Reason: Heartburn Last Admin: 03/16/25 12:14 Dose: 750 mg Dextrose (Dextrose 50 % 25 Gm/50 Ml Syringe) 25 gm IVPUSH Q15M PRN; Protocol PRN Reason: per Hypoglycemia Standing Ord. Docusate Sodium (Docusate Sodium 100 Mg Capsule) 100 mg PO BID [facility] Last Admin: 03/20/25 07:41 Dose: 100 mg Empagliflozin (Empagliflozin 25 Mg Tablet) 25 mg PO DAILY [facility] Last Admin: 03/20/25 07:42 Dose: 25 mg Enoxaparin Sodium (Enoxaparin Sodium 40 Mg/0.4 Ml Syringe) 40 mg SUBCUT Q24H [facility] Last Admin: 03/20/25 02:33 Dose: 40 mg Epinephrine (Epinephrine 1 Mg/Ml Vial) 0.3 mg IM DAILY PRN PRN Reason: Allergic Reaction Fluticasone Propionate (Fluticasone Propionate Nasal 16 Gm [place]) 1 spray NOSTRIL-B BID PRN PRN Reason: Allergy Symptoms Gabapentin (Gabapentin 400 Mg Capsule) 800 mg PO TID [facility] Last Admin: 03/20/25 07:42 Dose: 800 mg Glucose (Glucose Gel 15 Gm Gel..Gram.) 15 gm PO Q15M PRN; Protocol PRN Reason: per Hypoglycemia Standing Ord. Guaifenesin (Guaifenesin 200 Mg/10 Ml 10 Ml Liquid) 10 ml PO Q4H PRN PRN Reason: Cough Hydralazine HCl (Hydralazine Hcl 50 Mg Tablet) 100 mg PO TID [facility]; Protocol Last Admin: 03/20/25 07:41 Dose: 100 mg Hydrochlorothiazide (Hydrochlorothiazide 50 Mg Tablet) 50 mg PO DAILY [facility] Last Admin: 03/20/25 07:41 Dose: 50 mg Hydromorphone HCl (Hydromorphone Hcl 1 Mg/Ml Syringe) 1 mg IVPUSH Q3H PRN; Protocol PRN Reason: Pain, Severe (Pain Scale 7-10) Last Admin: 03/20/25 08:12 Dose: 1 mg Piperacillin Sod/Tazobactam (Sod 3.375 gm/ Sodium Chloride) 50 mls @ 100 mls/hr IV Q6H [facility] Last Infusion: 03/20/25 08:15 Dose: Infused Daptomycin 700 mg/ Sodium (Chloride) 64 mls @ 87.141 mls/hr IV Q24H [facility] Last Infusion: 03/19/25 18:02 Dose: Infused Insulin Glargine (Insulin Glargine,Hum.Rec.Anlog 100 Unit/Ml 10 Ml Vial) 60 unit SUBCUT BEDTIME [facility] Last Admin: 03/19/25 21:01 Dose: 60 unit Insulin Human Lispro (Insulin Lispro 100 Unit/Ml 3 Ml Vial) 0 unit SUBCUT QIDACHS [facility]; Protocol Last Admin: 03/20/25 08:12 Dose: 2 unit Labetalol HCl (Labetalol Hcl 100 Mg Tablet) 300 mg PO BID [facility] Last Admin: 03/20/25 07:41 Dose: 300 mg Loratadine (Loratadine 10 Mg Tablet) 10 mg PO DAILY [facility] Last Admin: 03/20/25 07:41 Dose: 10 mg Losartan Potassium (Losartan Potassium 50 Mg Tablet) 100 mg PO DAILY [facility]; Protocol Last Admin: 03/20/25 07:42 Dose: 100 mg Magnesium Hydroxide (Milk Of Magnesia 30 Ml Oral.Susp) 30 ml PO DAILY PRN PRN Reason: Constipation Magnesium Oxide (Magnesium Oxide 400 Mg Tablet) 400 mg PO DAILY [facility] Last Admin: 03/20/25 07:42 Dose: 400 mg Melatonin (Melatonin 3 Mg Tablet) 6 mg PO BEDTIME PRN PRN Reason: Insomnia Nicotine (Nicotine 21 Mg Patch.Td24) 21 mg TRANSDERMA DAILY [facility] Last Admin: 03/20/25 07:40 Dose: 21 mg Non-Formulary Medication (Acetaminophen) 650 mg PO Q8H PRN PRN Reason: pain Nystatin/Triamcinolone Acetonide (Nystatin/Triamcinolone Cream 15 Gm Tube) 1 appl TOPICAL BID PRN PRN Reason: Rash Ondansetron HCl (Ondansetron Hcl 4 Mg/2 Ml Vial) 4 mg IVPUSH Q8H PRN PRN Reason: Nausea and Vomiting Last Admin: 03/16/25 17:01 Dose: 4 mg Ondansetron HCl (Ondansetron Odt 4 Mg Tab.Rapdis) 4 mg TRANSLINGU Q8H PRN PRN Reason: Nausea and Vomiting Oxycodone HCl (Oxycodone Hcl Immed Release 5 Mg Tablet) 10 mg PO Q4H PRN PRN Reason: severe pain Last Admin: 03/20/25 09:34 Dose: 10 mg Polyethylene Glycol (Polyethylene Glycol 3350 17 Gm Powd.Pack) 17 gm PO DAILY PRN PRN Reason: Constipation Senna (Sennosides 8.6 Mg Tablet) 17.2 mg PO BEDTIME [facility] Last Admin: 03/19/25 20:59 Dose: 17.2 mg Sodium Chloride (0.9 % Sodium Chloride Flush 3 Ml Syringe) 3 ml IVFLUSH QSHIFT [facility] Last Admin: 03/20/25 06:54 Dose: Not Given Sodium Chloride (0.9 % Sodium Chloride Flush 3 Ml Syringe) 3 ml IVFLUSH QSHIFT [facility] Last Admin: 03/20/25 06:55 Dose: Not Given Spironolactone (Spironolactone 25 Mg Tablet) 25 mg PO DAILY [facility]; Protocol Last Admin: 03/20/25 07:41 Dose: 25 mg Tamsulosin HCl (Tamsulosin Hcl 0.4 Mg Capsule) 0.4 mg PO DAILY [facility] Last Admin: 03/20/25 07:41 Dose: 0.4 mg Home Medications ?Medication ?Instructions ?Recorded ?Confirmed ?Last Taken ?Type albuterol sulfate 90 mcg/actuation 2 puff inhalation Q4H PRN Wheezing 08/15/23 03/16/25 08/29/23 History aerosol inhaler (Ventolin HFA) atorvastatin 80 mg tablet 80 mg PO BEDTIME 08/15/23 03/16/25 11/21/24 History baclofen 10 mg tablet 10 mg PO TID 08/15/23 03/16/25 11/22/24 History cetirizine 10 mg tablet 10 mg PO DAILY 08/15/23 03/16/25 11/22/24 History chlorthalidone 50 mg tablet 50 mg PO DAILY 08/15/23 03/16/25 11/22/24 History empagliflozin 25 mg tablet 25 mg PO DAILY 08/15/23 03/16/25 11/22/24 History (Jardiance) epinephrine 0.3 mg/0.3 mL 0.3 mg IM DIRECTED PRN Allergic 08/15/23 03/16/25 Unknown History injection, auto-injector Reaction fluticasone propionate 50 1 spray intranasal BID PRN Allergy 08/15/23 03/16/25 Unknown History mcg/actuation nasal Symptoms spray,suspension gabapentin 800 mg tablet 800 mg PO TID 08/15/23 03/16/25 11/22/24 History losartan 100 mg tablet 100 mg PO DAILY 08/15/23 03/16/25 11/22/24 History magnesium oxide 400 mg (241.3 mg 400 mg PO DAILY 08/15/23 03/16/25 11/22/24 History magnesium) tablet tamsulosin 0.4 mg capsule 0.4 mg PO DAILY 08/15/23 03/16/25 11/22/24 History acetaminophen 650 mg 650 mg PO Q8H PRN pain 01/02/24 03/16/25 Unknown History tablet,extended release hydralazine 100 mg tablet 100 mg PO TID 06/25/24 03/16/25 11/22/24 History labetalol 300 mg tablet 300 mg PO BID 0103/16/25 11/22/24 History ondansetron HCl 4 mg tablet 4 mg PO Q8H PRN Nausea And Vomiting 06/25/24 03/16/25 Unknown History clotrimazole-betamethasone 1 1 appl topical BID PRN Rash 11/22/24 03/16/25 Unknown History %-0.05 % topical cream insulin aspart U-100 100 unit/mL 10 unit subcut TIDAC 11/22/24 03/16/25 11/22/24 History subcutaneous solution (Novolog U-100 Insulin aspart) polyethylene glycol 3350 17 gram 17 g PO DAILY PRN Constipation 03/16/25 03/16/25 Unknown History oral powder packet spironolactone 25 mg tablet 25 mg PO DAILY 03/16/25 03/16/25 Unknown History Exam Height,Weight and Vital Signs: Height 5 ft 8 in Weight 117.2 kg Last Vital Signs Temp 98.0 F 03/20/25 07:44 Pulse 66 03/20/25 07:44 Resp 18 03/20/25 07:44 BP 144/90 H 03/20/25 07:44 Pulse Ox 98 03/20/25 07:44 O2 Del Method Room Air 03/20/25 07:44 Pertinent Lab Results Pertinent Lab Results: Laboratory Tests 03/16/25 03/16/25 03/16/25 00:38 00:59 01:16 WBC 10.6 RBC 4.67 Hgb 13.1 L Hct 37.6 L MCV 80.5 MCH 28.1 MCHC 34.8 RDW 13.5 Plt Count 296 MPV 9.3 L Immature Gran % (Auto) 0.7 H Neut % (Auto) 70.8 Lymph % (Auto) 15.0 L [place] % (Auto) 10.2 Eos % (Auto) 2.4 Baso % (Auto) 0.9 Lymph # (Auto) 1.6 [place] # (Auto) 1.1 Eos # (Auto) 0.3 Baso # (Auto) 0.1 Abs Immat Gran (auto) 0.07 H Absolute Neuts (auto) 7.5 Absolute Nucleated RBC 0.000 Nucleated RBC % (auto) 0.0 Smear Tech's Comments ESR 84 H VBG pH VBG pCO2 VBG pO2 VBG HCO3 VBG O2 Saturation VBG Base Excess Sodium 127 L Potassium 4.1 Chloride 92 L Carbon Dioxide 24 Anion Gap 15 BUN 31 H Creatinine 1.01 Estim Creat Clear Calc 107.3 Estimated GFR > 60 POC Glucose > 600 H* Random Glucose 678 H* Estimat Average Glucose Hemoglobin A1c % Lactic Acid 1.2 Calcium 8.5 D Magnesium 2.3 Total Bilirubin 0.6 AST 26 ALT 12 Alkaline Phosphatase 132 H Total Creatine Kinase C-Reactive Protein 12.15 H NT-Pro-B Natriuret Pep 443.2 H Total Protein 7.3 Albumin 3.2 L TSH 0.82 Urine Color Yellow Urine Appearance Clear Urine pH 5.5 Ur Specific [place] >= 1.030 H Urine Protein 100 (2+) H Urine Glucose (UA) >=1000 H Urine Ketones Trace Urine Blood Trace H Urine Nitrite Negative Ur Leukocyte Esterase Negative Urine RBC 3-5 H Urine WBC 0-5 Ur Squamous Epith Cells 0-2 Urine Bacteria None Seen Hyaline Casts 0-2 Stl C. cayetanensis PCR Stool Rotavirus A PCR Stl Adenov F 40/41 PCR Stool Astrovirus (PCR) Stool Campylobacter PCR Stool Cryptosporidium PCR Stl Sh Tox Pr E STEC PCR Stool E coli O157 PCR Stl Enterotoxigenic E PCR Stool EPEC (PCR) Stool EAEC (PCR) Stl E. histolytica PCR Stool Giardia Lamblia PCR Stl P. shigelloides PCR Stool Salmonella PCR Stool Sapovirus (PCR) Stl Shigella/EIEC PCR St Y.enterocolitica PCR Stool Vibrio (PCR) Stl Vibrio cholerae PCR Stl Norovirus GI/GII PCR C. difficile Tox B Gene 03/16/25 03/16/25 03/16/25 01:25 02:19 03:19 WBC RBC Hgb Hct MCV MCH MCHC RDW Plt Count MPV Immature Gran % (Auto) Neut % (Auto) Lymph % (Auto) [place] % (Auto) Eos % (Auto) Baso % (Auto) Lymph # (Auto) [place] # (Auto) Eos # (Auto) Baso # (Auto) Abs Immat Gran (auto) Absolute Neuts (auto) Absolute Nucleated RBC Nucleated RBC % (auto) Smear Tech's Comments ESR VBG pH 7.45 H VBG pCO2 36 VBG pO2 103 VBG HCO3 25 VBG O2 Saturation 99.0 VBG Base Excess 1.9 Sodium Potassium Chloride Carbon Dioxide Anion Gap BUN Creatinine Estim Creat Clear Calc Estimated GFR POC Glucose 340 H 334 H Random Glucose Estimat Average Glucose Hemoglobin A1c % Lactic Acid Calcium Magnesium Total Bilirubin AST ALT Alkaline Phosphatase Total Creatine Kinase C-Reactive Protein NT-Pro-B Natriuret Pep Total Protein Albumin TSH Urine Color Urine Appearance Urine pH Ur Specific [place] Urine Protein Urine Glucose (UA) Urine Ketones Urine Blood Urine Nitrite Ur Leukocyte Esterase Urine RBC Urine WBC Ur Squamous Epith Cells Urine Bacteria Hyaline Casts Stl C. cayetanensis PCR Stool Rotavirus A PCR Stl Adenov F 40 PCR Stool Astrovirus (PCR) Stool Campylobacter PCR Stool Cryptosporidium PCR Stl Sh Tox Pr E STEC PCR Stool E coli O157 PCR Stl Enterotoxigenic E PCR Stool EPEC (PCR) Stool EAEC (PCR) Stl E. histolytica PCR Stool Giardia Lamblia PCR Stl P. shigelloides PCR Stool Salmonella PCR Stool Sapovirus (PCR) Stl Shigella/EIEC PCR St Y.enterocolitica PCR Stool Vibrio (PCR) Stl Vibrio cholerae PCR Stl Norovirus GI/GII PCR C. difficile Tox B Gene 03/16/25 03/16/25 03/16/25 05:44 06:54 08:20 WBC 9.5 RBC 4.36 L Hgb 12.0 L Hct 36.4 L MCV 83.5 MCH 27.5 MCHC 33.0 RDW 13.4 Plt Count 294 MPV 9.6 Immature Gran % (Auto) 0.8 H Neut % (Auto) 60.1 Lymph % (Auto) 23.5 [place] % (Auto) 10.4 Eos % (Auto) 4.2 H Baso % (Auto) 1.0 Lymph # (Auto) 2.2 [place] # (Auto) 1.0 Eos # (Auto) 0.4 Baso # (Auto) 0.1 Abs Immat Gran (auto) 0.08 H Absolute Neuts (auto) 5.7 Absolute Nucleated RBC 0.000 Nucleated RBC % (auto) 0.0 Smear Tech's Comments VERIFIED ESR VBG pH VBG pCO2 VBG pO2 VBG HCO3 VBG O2 Saturation VBG Base Excess Sodium 133 L Potassium 4.0 Chloride 99 Carbon Dioxide 27 Anion Gap 11 L BUN 27 H Creatinine 0.95 Estim Creat Clear Calc 114.0 Estimated GFR > 60 POC Glucose 384 H* 322 H Random Glucose 369 H* Estimat Average Glucose Hemoglobin A1c % Lactic Acid Calcium 8.1 L Magnesium Total Bilirubin 0.5 AST 25 ALT 13 Alkaline Phosphatase 105 Total Creatine Kinase C-Reactive Protein NT-Pro-B Natriuret Pep Total Protein 6.4 L Albumin 2.8 L TSH Urine Color Urine Appearance Urine pH Ur Specific [place] Urine Protein Urine Glucose (UA) Urine Ketones Urine Blood Urine Nitrite Ur Leukocyte Esterase Urine RBC Urine WBC Ur Squamous Epith Cells Urine Bacteria Hyaline Casts Stl C. cayetanensis PCR Stool Rotavirus A PCR Stl Adenov F PCR Stool Astrovirus (PCR) Stool Campylobacter PCR Stool Cryptosporidium PCR Stl Sh Tox Pr E STEC PCR Stool E coli O157 PCR Stl Enterotoxigenic E PCR Stool EPEC (PCR) Stool EAEC (PCR) Stl E. histolytica PCR Stool Giardia Lamblia PCR Stl P. shigelloides PCR Stool Salmonella PCR Stool Sapovirus (PCR) Stl Shigella/EIEC PCR St Y.enterocolitica PCR Stool Vibrio (PCR) Stl Vibrio cholerae PCR Stl Norovirus GI/GII PCR C. difficile Tox B Gene 03/16/25 03/16/25 03/16/25 09:03 11:15 16:09 WBC RBC Hgb Hct MCV MCH MCHC RDW Plt Count MPV Immature Gran % (Auto) Neut % (Auto) Lymph % (Auto) [place] % (Auto) Eos % (Auto) Baso % (Auto) Lymph # (Auto) [place] # (Auto) Eos # (Auto) Baso # (Auto) Abs Immat Gran (auto) Absolute Neuts (auto) Absolute Nucleated RBC Nucleated RBC % (auto) Smear Tech's Comments ESR VBG pH VBG pCO2 VBG pO2 VBG HCO3 VBG O2 Saturation VBG Base Excess Sodium Potassium Chloride Carbon Dioxide Anion Gap BUN Creatinine Estim Creat Clear Calc Estimated GFR POC Glucose 234 H 225 H 240 H Random Glucose Estimat Average Glucose Hemoglobin A1c % Lactic Acid Calcium Magnesium Total Bilirubin AST ALT Alkaline Phosphatase Total Creatine Kinase C-Reactive Protein NT-Pro-B Natriuret Pep Total Protein Albumin TSH Urine Color Urine Appearance Urine pH Ur Specific [place] Urine Protein Urine Glucose (UA) Urine Ketones Urine Blood Urine Nitrite Ur Leukocyte Esterase Urine RBC Urine WBC Ur Squamous Epith Cells Urine Bacteria Hyaline Casts Stl C. cayetanensis PCR Stool Rotavirus A PCR Stl Adenov F PCR Stool Astrovirus (PCR) Stool Campylobacter PCR Stool Cryptosporidium PCR Stl Sh Tox Pr E STEC PCR Stool E coli O157 PCR Stl Enterotoxigenic E PCR Stool EPEC (PCR) Stool EAEC (PCR) Stl E. histolytica PCR Stool Giardia Lamblia PCR Stl P. shigelloides PCR Stool Salmonella PCR Stool Sapovirus (PCR) Stl Shigella/EIEC PCR St Y.enterocolitica PCR Stool Vibrio (PCR) Stl Vibrio cholerae PCR Stl Norovirus GI/GII PCR C. difficile Tox B Gene 03/16/25 03/17/25 03/17/25 20:28 06:19 07:26 WBC RBC Hgb Hct MCV MCH MCHC RDW Plt Count MPV Immature Gran % (Auto) Neut % (Auto) Lymph % (Auto) [place] % (Auto) Eos % (Auto) Baso % (Auto) Lymph # (Auto) [place] # (Auto) Eos # (Auto) Baso # (Auto) Abs Immat Gran (auto) Absolute Neuts (auto) Absolute Nucleated RBC Nucleated RBC % (auto) Smear Tech's Comments ESR VBG pH VBG pCO2 VBG pO2 VBG HCO3 VBG O2 Saturation VBG Base Excess Sodium Potassium Chloride Carbon Dioxide Anion Gap BUN Creatinine Estim Creat Clear Calc Estimated GFR POC Glucose 235 H 174 H Random Glucose Estimat Average Glucose 278 Hemoglobin A1c % 11.3 H Lactic Acid Calcium Magnesium Total Bilirubin AST ALT Alkaline Phosphatase Total Creatine Kinase C-Reactive Protein NT-Pro-B Natriuret Pep Total Protein Albumin TSH Urine Color Urine Appearance Urine pH Ur Specific [place] Urine Protein Urine Glucose (UA) Urine Ketones Urine Blood Urine Nitrite Ur Leukocyte Esterase Urine RBC Urine WBC Ur Squamous Epith Cells Urine Bacteria Hyaline Casts Stl C. cayetanensis PCR Stool Rotavirus A PCR Stl Adenov F 40/41 PCR Stool Astrovirus (PCR) Stool Campylobacter PCR Stool Cryptosporidium PCR Stl Sh Tox Pr E STEC PCR Stool E coli O157 PCR Stl Enterotoxigenic E PCR Stool EPEC (PCR) Stool EAEC (PCR) Stl E. histolytica PCR Stool Giardia Lamblia PCR Stl P. shigelloides PCR Stool Salmonella PCR Stool Sapovirus (PCR) Stl Shigella/EIEC PCR St Y.enterocolitica PCR Stool Vibrio (PCR) Stl Vibrio cholerae PCR Stl Norovirus GI/GII PCR C. difficile Tox B Gene 03/17/25 03/17/25 03/17/25 11:08 13:33 16:17 WBC RBC Hgb 11.6 L Hct 36.1 L MCV MCH MCHC RDW Plt Count MPV Immature Gran % (Auto) Neut % (Auto) Lymph % (Auto) [place] % (Auto) Eos % (Auto) Baso % (Auto) Lymph # (Auto) [place] # (Auto) Eos # (Auto) Baso # (Auto) Abs Immat Gran (auto) Absolute Neuts (auto) Absolute Nucleated RBC Nucleated RBC % (auto) Smear Tech's Comments ESR VBG pH VBG pCO2 VBG pO2 VBG HCO3 VBG O2 Saturation VBG Base Excess Sodium 137 Potassium 3.5 Chloride 103 Carbon Dioxide 28 Anion Gap 10 L BUN 12 Creatinine 0.99 Estim Creat Clear Calc 108.5 Estimated GFR > 60 POC Glucose 199 H 141 H Random Glucose 203 H Estimat Average Glucose Hemoglobin A1c % Lactic Acid Calcium 8.3 L Magnesium Total Bilirubin AST ALT Alkaline Phosphatase Total Creatine Kinase C-Reactive Protein NT-Pro-B Natriuret Pep Total Protein Albumin TSH Urine Color Urine Appearance Urine pH Ur Specific [place] Urine Protein Urine Glucose (UA) Urine Ketones Urine Blood Urine Nitrite Ur Leukocyte Esterase Urine RBC Urine WBC Ur Squamous Epith Cells Urine Bacteria Hyaline Casts Stl C. cayetanensis PCR Stool Rotavirus A PCR Stl Adenov F 40/41 PCR Stool Astrovirus (PCR) Stool Campylobacter PCR Stool Cryptosporidium PCR Stl Sh Tox Pr E STEC PCR Stool E coli O157 PCR Stl Enterotoxigenic E PCR Stool EPEC (PCR) Stool EAEC (PCR) Stl E. histolytica PCR Stool Giardia Lamblia PCR Stl P. shigelloides PCR Stool Salmonella PCR Stool Sapovirus (PCR) Stl Shigella/EIEC PCR St Y.enterocolitica PCR Stool Vibrio (PCR) Stl Vibrio cholerae PCR Stl Norovirus GI/GII PCR C. difficile Tox B Gene 03/17/25 03/18/25 03/18/25 19:59 07:24 09:45 WBC RBC Hgb Hct MCV MCH MCHC RDW Plt Count MPV Immature Gran % (Auto) Neut % (Auto) Lymph % (Auto) [place] % (Auto) Eos % (Auto) Baso % (Auto) Lymph # (Auto) [place] # (Auto) Eos # (Auto) Baso # (Auto) Abs Immat Gran (auto) Absolute Neuts (auto) Absolute Nucleated RBC Nucleated RBC % (auto) Smear Tech's Comments ESR VBG pH VBG pCO2 VBG pO2 VBG HCO3 VBG O2 Saturation VBG Base Excess Sodium Potassium Chloride Carbon Dioxide Anion Gap BUN Creatinine Estim Creat Clear Calc Estimated GFR POC Glucose 174 H 127 H Random Glucose Estimat Average Glucose Hemoglobin A1c % Lactic Acid Calcium Magnesium Total Bilirubin AST ALT Alkaline Phosphatase Total Creatine Kinase C-Reactive Protein NT-Pro-B Natriuret Pep Total Protein Albumin TSH Urine Color Urine Appearance Urine pH Ur Specific [place] Urine Protein Urine Glucose (UA) Urine Ketones Urine Blood Urine Nitrite Ur Leukocyte Esterase Urine RBC Urine WBC Ur Squamous Epith Cells Urine Bacteria Hyaline Casts Stl C. cayetanensis PCR Not Detected Stool Rotavirus A PCR Not Detected Stl Adenov F 40/41 PCR Not Detected Stool Astrovirus (PCR) Not Detected Stool Campylobacter PCR Not Detected Stool Cryptosporidium PCR Not Detected Stl Sh Tox Pr E STEC PCR Not Detected Stool E coli O157 PCR Not applicable Stl Enterotoxigenic E PCR Not Detected Stool EPEC (PCR) Not Detected Stool EAEC (PCR) Not Detected Stl E. histolytica PCR Not Detected Stool Giardia Lamblia PCR Not Detected Stl P. shigelloides PCR Not Detected Stool Salmonella PCR Not Detected Stool Sapovirus (PCR) Not Detected Stl Shigella/EIEC PCR Not Detected St Y.enterocolitica PCR Not Detected Stool Vibrio (PCR) Not Detected Stl Vibrio cholerae PCR Not Detected Stl Norovirus GI/GII PCR Not Detected C. difficile Tox B Gene NEGATIVE 03/18/25 03/18/25 03/18/25 11:12 15:22 16:14 WBC RBC Hgb Hct MCV MCH MCHC RDW Plt Count MPV Immature Gran % (Auto) Neut % (Auto) Lymph % (Auto) [place] % (Auto) Eos % (Auto) Baso % (Auto) Lymph # (Auto) [place] # (Auto) Eos # (Auto) Baso # (Auto) Abs Immat Gran (auto) Absolute Neuts (auto) Absolute Nucleated RBC Nucleated RBC % (auto) Smear Tech's Comments ESR VBG pH VBG pCO2 VBG pO2 VBG HCO3 VBG O2 Saturation VBG Base Excess Sodium 135 Potassium 3.7 Chloride 100 Carbon Dioxide 30 H Anion Gap 9 L BUN 8 L Creatinine 1.03 Estim Creat Clear Calc 104.3 Estimated GFR > 60 POC Glucose 112 199 H Random Glucose 214 H Estimat Average Glucose Hemoglobin A1c % Lactic Acid Calcium 8.5 Magnesium Total Bilirubin AST ALT Alkaline Phosphatase Total Creatine Kinase 98 C-Reactive Protein NT-Pro-B Natriuret Pep Total Protein Albumin TSH Urine Color Urine Appearance Urine pH Ur Specific [place] Urine Protein Urine Glucose (UA) Urine Ketones Urine Blood Urine Nitrite Ur Leukocyte Esterase Urine RBC Urine WBC Ur Squamous Epith Cells Urine Bacteria Hyaline Casts Stl C. cayetanensis PCR Stool Rotavirus A PCR Stl Adenov F 40 PCR Stool Astrovirus (PCR) Stool Campylobacter PCR Stool Cryptosporidium PCR Stl Sh Tox Pr E STEC PCR Stool E coli O157 PCR Stl Enterotoxigenic E PCR Stool EPEC (PCR) Stool EAEC (PCR) Stl E. histolytica PCR Stool Giardia Lamblia PCR Stl P. shigelloides PCR Stool Salmonella PCR Stool Sapovirus (PCR) Stl Shigella/EIEC PCR St Y.enterocolitica PCR Stool Vibrio (PCR) Stl Vibrio cholerae PCR Stl Norovirus GI/GII PCR C. difficile Tox B Gene 03/18/25 03/19/25 03/19/25 20:38 07:37 11:31 WBC RBC Hgb Hct MCV MCH MCHC RDW Plt Count MPV Immature Gran % (Auto) Neut % (Auto) Lymph % (Auto) [place] % (Auto) Eos % (Auto) Baso % (Auto) Lymph # (Auto) [place] # (Auto) Eos # (Auto) Baso # (Auto) Abs Immat Gran (auto) Absolute Neuts (auto) Absolute Nucleated RBC Nucleated RBC % (auto) Smear Tech's Comments ESR VBG pH VBG pCO2 VBG pO2 VBG HCO3 VBG O2 Saturation VBG Base Excess Sodium Potassium Chloride Carbon Dioxide Anion Gap BUN Creatinine Estim Creat Clear Calc Estimated GFR POC Glucose 196 H 176 H 160 H Random Glucose Estimat Average Glucose Hemoglobin A1c % Lactic Acid Calcium Magnesium Total Bilirubin AST ALT Alkaline Phosphatase Total Creatine Kinase C-Reactive Protein NT-Pro-B Natriuret Pep Total Protein Albumin TSH Urine Color Urine Appearance Urine pH Ur Specific [place] Urine Protein Urine Glucose (UA) Urine Ketones Urine Blood Urine Nitrite Ur Leukocyte Esterase Urine RBC Urine WBC Ur Squamous Epith Cells Urine Bacteria Hyaline Casts Stl C. cayetanensis PCR Stool Rotavirus A PCR Stl Adenov F 40 PCR Stool Astrovirus (PCR) Stool Campylobacter PCR Stool Cryptosporidium PCR Stl Sh Tox Pr E STEC PCR Stool E coli O157 PCR Stl Enterotoxigenic E PCR Stool EPEC (PCR) Stool EAEC (PCR) Stl E. histolytica PCR Stool Giardia Lamblia PCR Stl P. shigelloides PCR Stool Salmonella PCR Stool Sapovirus (PCR) Stl Shigella/EIEC PCR St Y.enterocolitica PCR Stool Vibrio (PCR) Stl Vibrio cholerae PCR Stl Norovirus GI/GII PCR C. difficile Tox B Gene 03/19/25 03/19/25 03/20/25 16:23 20:16 07:46 WBC RBC Hgb Hct MCV MCH MCHC RDW Plt Count MPV Immature Gran % (Auto) Neut % (Auto) Lymph % (Auto) [place] % (Auto) Eos % (Auto) Baso % (Auto) Lymph # (Auto) [place] # (Auto) Eos # (Auto) Baso # (Auto) Abs Immat Gran (auto) Absolute Neuts (auto) Absolute Nucleated RBC Nucleated RBC % (auto) Smear Tech's Comments ESR VBG pH VBG pCO2 VBG pO2 VBG HCO3 VBG O2 Saturation VBG Base Excess Sodium Potassium Chloride Carbon Dioxide Anion Gap BUN Creatinine Estim Creat Clear Calc Estimated GFR POC Glucose 190 H 206 H 135 H Random Glucose Estimat Average Glucose Hemoglobin A1c % Lactic Acid Calcium Magnesium Total Bilirubin AST ALT Alkaline Phosphatase Total Creatine Kinase C-Reactive Protein NT-Pro-B Natriuret Pep Total Protein Albumin TSH Urine Color Urine Appearance Urine pH Ur Specific [place] Urine Protein Urine Glucose (UA) Urine Ketones Urine Blood Urine Nitrite Ur Leukocyte Esterase Urine RBC Urine WBC Ur Squamous Epith Cells Urine Bacteria Hyaline Casts Stl C. cayetanensis PCR Stool Rotavirus A PCR Stl Adenov F 40/41 PCR Stool Astrovirus (PCR) Stool Campylobacter PCR Stool Cryptosporidium PCR Stl Sh Tox Pr E STEC PCR Stool E coli O157 PCR Stl Enterotoxigenic E PCR Stool EPEC (PCR) Stool EAEC (PCR) Stl E. histolytica PCR Stool Giardia Lamblia PCR Stl P. shigelloides PCR Stool Salmonella PCR Stool Sapovirus (PCR) Stl Shigella/EIEC PCR St Y.enterocolitica PCR Stool Vibrio (PCR) Stl Vibrio cholerae PCR Stl Norovirus GI/GII PCR C. difficile Tox B Gene Narrative Narrative: EKG 11/2024 Vent. Rate : 85 BPM Atrial Rate : 85 BPM P-R Int : 154 ms QRS Dur : 98 ms QT Int : 374 ms P-R-T Axes : 65 49 67 degrees QTcB Int : 445 ms Normal sinus rhythm with sinus arrhythmia Normal ECG When compared with ECG of 02-Jan-2024 07:18, No significant change was found Assessment and Plan Final Anesthetic Review History of Problems with Anesthesia: No
--- NOTE | 2025-03-20 10:45 | MHC.CM.PN ---
Per MD rounds patient is scheduled for an amputation in the OR tomorrow. LT IV ABX may not be required at discharge. DP Home via private transportation.
[2025-03-20 11:12] VITALS: BP 129/64; PULSE 58; RESP 18; TEMP 36.6; O2SAT 95
[2025-03-20 11:20] LABS: Glucose, Whole Blood 215 mg/dL (60-115)
--- NOTE | 2025-03-20 11:42 | HO.PM.IMPN ---
Subjective Subjective Date of Service: 03/20/25 Interval History: toe pain Physical Exam Exam: Exam: Appearance: Alert.? Oriented X3.? cvs: rrr, [id number] . res: clear to auscultation ,no rhonchii or wheezing abd: no rebound or guarding ,nt, bs present. ext pulses present , no cyanosis . right lower ext: no edema in L lower extremities, right big toe swollen, discolored, with 2 openings 1 on top and 1 on the bottom with a noted ulcer that was recently lanced by patient neuro: [email or web address] , nonfocal. Vital Signs: Vital Signs: Last Vital Signs Temp 97.9 F 03/20/25 11:12 Pulse 58 03/20/25 11:12 Resp 18 03/20/25 11:12 BP 129/64 03/20/25 11:12 Pulse Ox 95 03/20/25 11:12 O2 Del Method CPAP 03/20/25 11:12 BMI result Body Mass Index 39.3 Objective Data Active Medications Acetaminophen (Acetaminophen 325 Mg Tablet) 650 mg PO Q6H PRN PRN Reason: Pain, Mild 1-3,fever,headache Last Admin: 03/20/25 09:34 Dose: 650 mg Documented By: SHANTELL Albuterol Sulfate (Albuterol Sulfate 90 Mcg 8 Gm Inhaler) 2 puff INHALE Q4H PRN PRN Reason: Wheezing Albuterol/Ipratropium (Albuterol/Iprat 2.5/0.5mg 3 Ml Ampul.Neb) 3 ml INHALE Q4H PRN PRN Reason: Shortness of Breath/Wheezing Amlodipine Besylate (Amlodipine Besylate 5 Mg Tablet) 5 mg PO DAILY [facility]; Protocol Last Admin: 03/20/25 07:42 Dose: 5 mg Documented By: SHANTELL Atorvastatin Calcium (Atorvastatin Calcium 80 Mg Tablet) 80 mg PO BEDTIME [facility] On Hold: 03/18/25 15:11 Last Admin: 03/17/25 20:24 Dose: 80 mg Documented By: EDI Baclofen (Baclofen 10 Mg Tablet) 10 mg PO TID [facility] Last Admin: 03/20/25 07:42 Dose: 10 mg Documented By: SHANTELL Calcium Carbonate (Calcium Carbonate 750 Mg Tab.Chew) 750 mg PO Q4H PRN PRN Reason: Heartburn Last Admin: 03/16/25 12:14 Dose: 750 mg Documented By: DANE Dextrose (Dextrose 50 % 25 Gm/50 Ml Syringe) 25 gm IVPUSH Q15M PRN; Protocol PRN Reason: per Hypoglycemia Standing Ord. Docusate Sodium (Docusate Sodium 100 Mg Capsule) 100 mg PO BID [facility] Last Admin: 03/20/25 07:41 Dose: 100 mg Documented By: SHANTELL Empagliflozin (Empagliflozin 25 Mg Tablet) 25 mg PO DAILY [facility] Last Admin: 03/20/25 07:42 Dose: 25 mg Documented By: SHANTELL Enoxaparin Sodium (Enoxaparin Sodium 40 Mg/0.4 Ml Syringe) 40 mg SUBCUT Q24H [facility] Last Admin: 03/20/25 02:33 Dose: 40 mg Documented By: VIRIDIANA Epinephrine (Epinephrine 1 Mg/Ml Vial) 0.3 mg IM DAILY PRN PRN Reason: Allergic Reaction Fluticasone Propionate (Fluticasone Propionate Nasal 16 Gm [place]) 1 spray NOSTRIL-B BID PRN PRN Reason: Allergy Symptoms Gabapentin (Gabapentin 400 Mg Capsule) 800 mg PO TID [facility] Last Admin: 03/20/25 07:42 Dose: 800 mg Documented By: SHANTELL Glucose (Glucose Gel 15 Gm Gel..Gram.) 15 gm PO Q15M PRN; Protocol PRN Reason: per Hypoglycemia Standing Ord. Guaifenesin (Guaifenesin 200 Mg/10 Ml 10 Ml Liquid) 10 ml PO Q4H PRN PRN Reason: Cough Hydralazine HCl (Hydralazine Hcl 50 Mg Tablet) 100 mg PO TID [facility]; Protocol Last Admin: 03/20/25 07:41 Dose: 100 mg Documented By: SHANTELL Hydrochlorothiazide (Hydrochlorothiazide 50 Mg Tablet) 50 mg PO DAILY [facility] Last Admin: 03/20/25 07:41 Dose: 50 mg Documented By: SHANTELL Hydromorphone HCl (Hydromorphone Hcl 1 Mg/Ml Syringe) 1 mg IVPUSH Q3H PRN; Protocol PRN Reason: Pain, Severe (Pain Scale 7-10) Last Admin: 03/20/25 08:12 Dose: 1 mg Documented By: SHANTELL Piperacillin Sod/Tazobactam (Sod 3.375 gm/ Sodium Chloride) 50 mls @ 100 mls/hr IV Q6H [facility] Last Infusion: 03/20/25 08:15 Dose: Infused Documented By: SHANTELL Daptomycin 700 mg/ Sodium (Chloride) 64 mls @ 87.141 mls/hr IV Q24H [facility] Last Infusion: 03/19/25 18:02 Dose: Infused Documented By: CAMACHO Insulin Glargine (Insulin Glargine,Hum.Rec.Anlog 100 Unit/Ml 10 Ml Vial) 60 unit SUBCUT BEDTIME [facility] Last Admin: 03/19/25 21:01 Dose: 60 unit Documented By: VIRIDIANA Insulin Human Lispro (Insulin Lispro 100 Unit/Ml 3 Ml Vial) 0 unit SUBCUT QIDACHS [facility]; Protocol Last Admin: 03/20/25 08:12 Dose: 2 unit Documented By: SHANTELL Labetalol HCl (Labetalol Hcl 100 Mg Tablet) 300 mg PO BID [facility] Last Admin: 03/20/25 07:41 Dose: 300 mg Documented By: SHANTELL Loratadine (Loratadine 10 Mg Tablet) 10 mg PO DAILY [facility] Last Admin: 03/20/25 07:41 Dose: 10 mg Documented By: SHANTELL Losartan Potassium (Losartan Potassium 50 Mg Tablet) 100 mg PO DAILY [facility]; Protocol Last Admin: 03/20/25 07:42 Dose: 100 mg Documented By: SHANTELL Magnesium Hydroxide (Milk Of Magnesia 30 Ml Oral.Susp) 30 ml PO DAILY PRN PRN Reason: Constipation Magnesium Oxide (Magnesium Oxide 400 Mg Tablet) 400 mg PO DAILY [facility] Last Admin: 03/20/25 07:42 Dose: 400 mg Documented By: SHANTELL Melatonin (Melatonin 3 Mg Tablet) 6 mg PO BEDTIME PRN PRN Reason: Insomnia Nicotine (Nicotine 21 Mg Patch.Td24) 21 mg TRANSDERMA DAILY [facility] Last Admin: 03/20/25 07:40 Dose: 21 mg Documented By: SHANTELL Non-Formulary Medication (Acetaminophen) 650 mg PO Q8H PRN PRN Reason: pain Nystatin/Triamcinolone Acetonide (Nystatin/Triamcinolone Cream 15 Gm Tube) 1 appl TOPICAL BID PRN PRN Reason: Rash Ondansetron HCl (Ondansetron Hcl 4 Mg/2 Ml Vial) 4 mg IVPUSH Q8H PRN PRN Reason: Nausea and Vomiting Last Admin: 03/16/25 17:01 Dose: 4 mg Documented By: DANE Ondansetron HCl (Ondansetron Odt 4 Mg Tab.Rapdis) 4 mg TRANSLINGU Q8H PRN PRN Reason: Nausea and Vomiting Oxycodone HCl (Oxycodone Hcl Immed Release 5 Mg Tablet) 10 mg PO Q4H PRN PRN Reason: severe pain Last Admin: 03/20/25 09:34 Dose: 10 mg Documented By: SHANTELL Polyethylene Glycol (Polyethylene Glycol 3350 17 Gm Powd.Pack) 17 gm PO DAILY PRN PRN Reason: Constipation Senna (Sennosides 8.6 Mg Tablet) 17.2 mg PO BEDTIME [facility] Last Admin: 03/19/25 20:59 Dose: 17.2 mg Documented By: VIRIDIANA Sodium Chloride (0.9 % Sodium Chloride Flush 3 Ml Syringe) 3 ml IVFLUSH [facility] Last Admin: 03/20/25 06:54 Dose: Not Given Documented By: SHANTELL Non-Admin Reason: Previously Administered Sodium Chloride (0.9 % Sodium Chloride Flush 3 Ml Syringe) 3 ml IVFLUSH [facility] Last Admin: 03/20/25 06:55 Dose: Not Given Documented By: SHANTELL Non-Admin Reason: Previously Administered Spironolactone (Spironolactone 25 Mg Tablet) 25 mg PO DAILY [facility]; Protocol Last Admin: 03/20/25 07:41 Dose: 25 mg Documented By: SHANTELL Tamsulosin HCl (Tamsulosin Hcl 0.4 Mg Capsule) 0.4 mg PO DAILY [facility] Last Admin: 03/20/25 07:41 Dose: 0.4 mg Documented By: SHANTELL Labs 03/17/25 13:33 03/18/25 15:22 Labs: Laboratory Results - last 24 hr 03/19/25 03/19/25 03/20/25 16:23 20:16 07:46 POC Glucose 190 H 206 H 135 H 03/20/25 11:16 POC Glucose 215 H Assessment and Plan (1) Hyperglycemia: Status: Acute Plan 54F PMH DM, htn, hld, obesity, history of paraspinal abscess, copd, bph, presented with hyperglycmeia and right 1st toe ulcer right first toe osteomyelitis due to DM conitnue dapto, zosyn plan for amputation 03/21/25 [employer]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
[2025-03-20 15:52] VITALS: BP 153/76; PULSE 79; RESP 18; TEMP 36.6; O2SAT 97
[2025-03-20 16:37] LABS: Glucose, Whole Blood 122 mg/dL (60-115)
[2025-03-20 19:59] VITALS: BP 167/75; PULSE 69; RESP 18; TEMP 36.1; O2SAT 98
[2025-03-20 20:40] LABS: Glucose, Whole Blood 179 mg/dL (60-115)
[2025-03-20 21:47] VITALS: BP 146/78; PULSE 70
[2025-03-21] VITALS (12 sets, daily range): BP systolic 118–159; BP diastolic 61–82; PULSE 56–86; RESP 12–19; TEMP 36–37; O2SAT 92–97
[2025-03-21] MEDS: 0.9 % Sodium Chloride Flush 3 ML SYRINGE IVFLUSH ×4 (00:29→23:56)
[2025-03-21] MEDS: oxyCODONE HCl Immed Release 5 MG TABLET 10 MG PO ×3 (05:14→23:51)
[2025-03-21 06:10] LABS: Hematocrit 40.9 % (42.0-52.0); Hemoglobin 13.1 g/dl (14.0-18.0); Mean Corpuscular HGB Conc 32.0 g/dl (31.0-36.0); Mean Corpuscular Hemoglobin 27.5 pg (27.0-33.0); Mean Corpuscular Volume 85.7 fL (80.0-98.0); NRBC Abs Auto 0.000 X10*3/uL (0.0-0.012); NRBC Pct Auto 0.0 /100WBC (0.0-0.2); Platelet Count 377 X10*3/uL (160-400); Red Blood Count 4.77 X10*6/uL (4.60-5.80); White Blood Count 6.5 X10*3/uL (4.8-10.8)
[2025-03-21 06:26] LABS: Anion Gap 13 (12-20); Blood Urea Nitrogen 19 mg/dL (9-16); Calcium 8.8 mg/dL (8.4-10.2); Carbon Dioxide 25 mmol/L (22-29); Chloride 102 mmol/L (96-108); Creatinine Clr Calc Pharmacy 95.9; Estimated Glomerular Filt Rate > 60; Magnesium 2.1 mg/dL (1.6-2.6); Potassium 4.5 mmol/L (3.3-5.1); Sodium 135 mmol/L (135-145)
--- NOTE | 2025-03-21 07:19 | PM.PNGS ---
Subjective Subjective Date of Service: 03/21/25 <Christiana Lebron PA-C - Last Filed: 03/21/25 07:54> 03/21/25 <Sergio Maxwell MD - Last Filed: 03/21/25 08:54> Interval history: No new complaints this morning. Would like to proceed with toe amputation today. <Christiana Lebron PA-C - Last Filed: 03/21/25 07:54> Physical Exam Vital Signs: Vital Signs: Last Vital Signs Temp 98.6 F 03/21/25 04:00 Pulse 86 03/21/25 04:00 Resp 18 03/21/25 04:00 BP 159/67 H 03/21/25 04:00 Pulse Ox 96 03/21/25 04:00 O2 Del Method CPAP 03/21/25 04:00 BMI result Body Mass Index 39.3 <Christiana Lebron PA-C - Last Filed: 03/21/25 07:54> Const: General: comfortable, no acute distress and alert <Christiana Lebron PA-C - Last Filed: 03/21/25 07:54> Orientation/consciousness: patient oriented x3 <Christiana Lebron PA-C - Last Filed: 03/21/25 07:54> Resp: Other: on CPAP <Christiana Lebron PA-C - Last Filed: 03/21/25 07:54> Effort & Inspection: normal respiratory effort <Christiana Lebron PA-C - Last Filed: 03/21/25 07:54> Skin: Other: warm and dry <Christiana Lebron PA-C - Last Filed: 03/21/25 07:54> Neuro: General: patient oriented x3 and moves all extremities <MARGUERITE Gonzalez Last Filed: 03/21/25 07:54> Extrem: Other: right foot with dressing in place, some serous drainage at great toe <MARGUERITE Gonzalez Last Filed: 03/21/25 07:54> Objective Data Active Medications Acetaminophen (Acetaminophen 325 Mg Tablet) 650 mg PO Q6H PRN PRN Reason: Pain, Mild 1-3,fever,headache Last Admin: 03/20/25 09:34 Dose: 650 mg Documented By: SHANTELL Albuterol Sulfate (Albuterol Sulfate 90 Mcg 8 Gm Inhaler) 2 puff INHALE Q4H PRN PRN Reason: Wheezing Albuterol/Ipratropium (Albuterol/Iprat 2.5/0.5mg 3 Ml Ampul.Neb) 3 ml INHALE Q4H PRN PRN Reason: Shortness of Breath/Wheezing Amlodipine Besylate (Amlodipine Besylate 5 Mg Tablet) 5 mg PO DAILY [facility]; Protocol Last Admin: 03/20/25 07:42 Dose: 5 mg Documented By: SHANTELL Atorvastatin Calcium (Atorvastatin Calcium 80 Mg Tablet) 80 mg PO BEDTIME [facility] On Hold: 03/18/25 15:11 Last Admin: 03/17/25 20:24 Dose: 80 mg Documented By: EDI Baclofen (Baclofen 10 Mg Tablet) 10 mg PO TID [facility] Last Admin: 03/20/25 20:07 Dose: 10 mg Documented By: GABINO Calcium Carbonate (Calcium Carbonate 750 Mg Tab.Chew) 750 mg PO Q4H PRN PRN Reason: Heartburn Last Admin: 03/16/25 12:14 Dose: 750 mg Documented By: LUCIAME Dextrose (Dextrose 50 % 25 Gm/50 Ml Syringe) 25 gm IVPUSH Q15M PRN; Protocol PRN Reason: per Hypoglycemia Standing Ord. Docusate Sodium (Docusate Sodium 100 Mg Capsule) 100 mg PO BID [facility] Last Admin: 03/20/25 20:07 Dose: 100 mg Documented By: GABINO Empagliflozin (Empagliflozin 25 Mg Tablet) 25 mg PO DAILY [facility] Last Admin: 03/20/25 07:42 Dose: 25 mg Documented By: SHANTELL Enoxaparin Sodium (Enoxaparin Sodium 40 Mg/0.4 Ml Syringe) 40 mg SUBCUT Q24H [facility] Last Admin: 03/21/25 00:31 Dose: Not Given Documented By: GABINO Non-Admin Reason: surgical procedure 03/21 Epinephrine (Epinephrine 1 Mg/Ml Vial) 0.3 mg IM DAILY PRN PRN Reason: Allergic Reaction Fluticasone Propionate (Fluticasone Propionate Nasal 16 Gm [place]) 1 spray NOSTRIL-B BID PRN PRN Reason: Allergy Symptoms Gabapentin (Gabapentin 400 Mg Capsule) 800 mg PO TID [facility] Last Admin: 03/20/25 20:07 Dose: 800 mg Documented By: GABINO Glucose (Glucose Gel 15 Gm Gel..Gram.) 15 gm PO Q15M PRN; Protocol PRN Reason: per Hypoglycemia Standing Ord. Guaifenesin (Guaifenesin 200 Mg/10 Ml 10 Ml Liquid) 10 ml PO Q4H PRN PRN Reason: Cough Hydralazine HCl (Hydralazine Hcl 50 Mg Tablet) 100 mg PO TID [facility]; Protocol Last Admin: 03/20/25 20:07 Dose: 100 mg Documented By: GABINO Hydrochlorothiazide (Hydrochlorothiazide 50 Mg Tablet) 50 mg PO DAILY [facility] Last Admin: 03/20/25 07:41 Dose: 50 mg Documented By: SHANTELL Piperacillin Sod/Tazobactam (Sod 3.375 gm/ Sodium Chloride) 50 mls @ 100 mls/hr IV Q6H [facility] Last Infusion: 03/21/25 03:35 Dose: Infused Documented By: GABINO Daptomycin 700 mg/ Sodium (Chloride) 64 mls @ 87.141 mls/hr IV Q24H [facility] Last Infusion: 03/20/25 17:29 Dose: Infused Documented By: ARIK Insulin Glargine (Insulin Glargine,Hum.Rec.Anlog 100 Unit/Ml 10 Ml Vial) 60 unit SUBCUT BEDTIME [facility] Last Admin: 03/20/25 21:44 Dose: Not Given Documented By: GABINO Non-Admin Reason: Physician Held Med Insulin Human Lispro (Insulin Lispro 100 Unit/Ml 3 Ml Vial) 0 unit SUBCUT QIDACHS [facility]; Protocol Last Admin: 03/20/25 21:05 Dose: 4 unit Documented By: AGBINO Labetalol HCl (Labetalol Hcl 100 Mg Tablet) 300 mg PO BID [facility] Last Admin: 03/20/25 20:06 Dose: 300 mg Documented By: GABINO Loratadine (Loratadine 10 Mg Tablet) 10 mg PO DAILY [facility] Last Admin: 03/20/25 07:41 Dose: 10 mg Documented By: SHANTELL Losartan Potassium (Losartan Potassium 50 Mg Tablet) 100 mg PO DAILY [facility]; Protocol Last Admin: 03/20/25 07:42 Dose: 100 mg Documented By: SHANTELL Magnesium Hydroxide (Milk Of Magnesia 30 Ml Oral.Susp) 30 ml PO DAILY PRN PRN Reason: Constipation Magnesium Oxide (Magnesium Oxide 400 Mg Tablet) 400 mg PO DAILY [facility] Last Admin: 03/20/25 07:42 Dose: 400 mg Documented By: SHANTELL Melatonin (Melatonin 3 Mg Tablet) 6 mg PO BEDTIME PRN PRN Reason: Insomnia Nicotine (Nicotine 21 Mg Patch.Td24) 21 mg TRANSDERMA DAILY [facility] Last Admin: 03/20/25 07:40 Dose: 21 mg Documented By: SHANTELL Non-Formulary Medication (Acetaminophen) 650 mg PO Q8H PRN PRN Reason: pain Nystatin/Triamcinolone Acetonide (Nystatin/Triamcinolone Cream 15 Gm Tube) 1 appl TOPICAL BID PRN PRN Reason: Rash Ondansetron HCl (Ondansetron Hcl 4 Mg/2 Ml Vial) 4 mg IVPUSH Q8H PRN PRN Reason: Nausea and Vomiting Last Admin: 03/16/25 17:01 Dose: 4 mg Documented By: DANE Ondansetron HCl (Ondansetron Odt 4 Mg Tab.Rapdis) 4 mg TRANSLINGU Q8H PRN PRN Reason: Nausea and Vomiting Oxycodone HCl (Oxycodone Hcl Immed Release 5 Mg Tablet) 10 mg PO Q4H PRN PRN Reason: severe pain Last Admin: 03/21/25 05:14 Dose: 10 mg Documented By: GABINO Polyethylene Glycol (Polyethylene Glycol 3350 17 Gm Powd.Pack) 17 gm PO DAILY PRN PRN Reason: Constipation Senna (Sennosides 8.6 Mg Tablet) 17.2 mg PO BEDTIME [facility] Last Admin: 03/20/25 20:06 Dose: 17.2 mg Documented By: GABINO Sodium Chloride (0.9 % Sodium Chloride Flush 3 Ml Syringe) 3 ml IVFLUSH [facility] Last Admin: 03/21/25 00:29 Dose: 3 ml Documented By: GABINO Sodium Chloride (0.9 % Sodium Chloride Flush 3 Ml Syringe) 3 ml IVFLUSH [facility] Last Admin: 03/21/25 00:30 Dose: Not Given Documented By: GABINO Non-Admin Reason: Duplicate Order Spironolactone (Spironolactone 25 Mg Tablet) 25 mg PO DAILY [facility]; Protocol Last Admin: 03/20/25 07:41 Dose: 25 mg Documented By: SHANTELL Tamsulosin HCl (Tamsulosin Hcl 0.4 Mg Capsule) 0.4 mg PO DAILY [facility] Last Admin: 03/20/25 07:41 Dose: 0.4 mg Documented By: SHANTELL <Christiana Lebron PA-C - Last Filed: 03/21/25 07:54> Labs CBC & Chem 7: 03/21/25 05:12 03/21/25 05:12 <Christiana Lebron PA-C - Last Filed: 03/21/25 07:54> Labs: Laboratory Results - last 24 hr 03/20/25 03/20/25 03/20/25 07:46 11:16 15:29 MCV MCH MCHC RDW Plt Count MPV Absolute Nucleated RBC Nucleated RBC % (auto) Anion Gap Estim Creat Clear Calc Estimated GFR POC Glucose 135 H 215 H 122 H Random Glucose Calcium Magnesium 03/20/25 03/21/25 20:37 05:12 MCV 85.7 MCH 27.5 MCHC 32.0 RDW 13.9 Plt Count 377 D MPV 8.9 L Absolute Nucleated RBC 0.000 Nucleated RBC % (auto) 0.0 Anion Gap 13 Estim Creat Clear Calc 95.9 Estimated GFR > 60 POC Glucose 179 H Random Glucose 188 H Calcium 8.8 Magnesium 2.1 <Christiana Lebron PA-C - Last Filed: 03/21/25 07:54> Microbiology Microbiology Results: Microbiology 03/16/25 00:59 Blood Culture - Final Blood - Venous No growth after 5 days. 03/16/25 00:59 Blood Culture - Final Blood - Venous No growth after 5 days. <Christiana Lebron PA-C - Last Filed: 03/21/25 07:54> Procedures Date of Service Date of Service: 03/21/25 <Christiana Lebron PA-C - Last Filed: 03/21/25 07:54> 03/21/25 <Sergio Maxwell MD - Last Filed: 03/21/25 08:54> Progress Note: A&P Assessment and plan (1) Osteomyelitis: Status: Acute <Christiana Lebron PA-C - Last Filed: 03/21/25 07:54> (2) Type 2 diabetes mellitus: Status: Acute <MARGUERITE Gonzalez Last Filed: 03/21/25 07:54> (3) Toe infection: Status: Acute <MARGUERITE Gonzalez Last Filed: 03/21/25 07:54> Assessment and Plan: 54 year old male with PMH of DM presenting with abscess and cellulitis of right great toe found to have osteomyelitis of the right great toe distal phalanx. He would like to proceed with amputation of the right great toe. Risks, benefits and alternatives were discussed including infection, bleeding, poor healing, further need for antibiotics. He is on the schedule for later today. All questions answered. <Christiana Lebron PA-C - Last Filed: 03/21/25 07:54> 54 year old male with PMH of DM presenting with abscess and cellulitis of right great toe found to have osteomyelitis of the right great toe distal phalanx. He would like to proceed with amputation of the right great toe. Risks, benefits and alternatives were discussed including infection, bleeding, poor healing, further need for antibiotics. He is on the schedule for later today. All questions answered. Agree with the above assessment and plan. I reviewed the procedure, risks and alternatives in detail regarding the amputation of his right great toe. He gives his consent for the surgery. Patient received a dose of Jardiance however surgery is considered an emergency and should not be postponed due to his ongoing infection and foot pain. <Sergio Maxwell MD - Last Filed: 03/21/25 08:54> Time Spent With Patient Time: Total time managing care of this patient today ____ minutes. <Christiana Lebron PA-C - Last Filed: 03/21/25 07:54> Quality Stroke Does the patient have a stroke diagnosis?: No <MARGUERITE Gonzalez Last Filed: 03/21/25 07:54> Reason for No Anti-thrombotic by Day Two: N/A - Med Ordered <MARGUERITE Gonzalez Last Filed: 03/21/25 07:54> VTE Prior VTE?: No <MARGUERITE Gonzalez Filed: 03/21/25 07:54> VTE Risk Level:: Medical - moderate - high <MARGUERITE Gonzalez Last Filed: 03/21/25 07:54> VTE Device Contraindication: Treatment Not Indicated <MARGUEIRTE Gonzalez Last Filed: 03/21/25 07:54> VTE Drug Contraindication: N/A - Med Ordered <Christiana Lebron PA-C - Last Filed: 03/21/25 07:54>
[2025-03-21 07:44] LABS: Glucose, Whole Blood 168 mg/dL (60-115)
[2025-03-21] MEDS: Nicotine 21 MG PATCH.TD24 TRANSDERMA (08:49)
--- NOTE | 2025-03-21 09:36 | P.PNIM_ITS ---
Subjective Subjective Date of Service: 03/21/25 Interval History: Ongoing severe toe pain Physical Exam 2 Vital Signs: Vital Signs: Last Vital Signs Temp 97.6 F 03/21/25 07:52 Pulse 60 03/21/25 07:52 Resp 18 03/21/25 07:52 BP 154/82 H 03/21/25 07:52 Pulse Ox 96 03/21/25 07:52 O2 Del Method CPAP 03/21/25 07:52 BMI result Body Mass Index 39.3 Const: General: comfortable, no acute distress and alert O rientation/consciousness: patient oriented x3 Resp: Other: on CPAP Effort & Inspection: normal respiratory effort Skin: Other: warm and dry Neuro: General: patient oriented x3 and moves all extremities Extrem: Other: right foot with dressing in place, some serous drainage at great toe Objective Data Active Medications Acetaminophen (Acetaminophen 325 Mg Tablet) 650 mg PO Q6H PRN PRN Reason: Pain, Mild 1-3,fever,headache Last Admin: 03/20/25 09:34 Dose: 650 mg Documented By: SHANTELL Albuterol Sulfate (Albuterol Sulfate 90 Mcg 8 Gm Inhaler) 2 puff INHALE Q4H PRN PRN Reason: Wheezing Albuterol/Ipratropium (Albuterol/Iprat 2.5/0.5mg 3 Ml Ampul.Neb) 3 ml INHALE Q4H PRN PRN Reason: Shortness of Breath/Wheezing Amlodipine Besylate (Amlodipine Besylate 5 Mg Tablet) 5 mg PO DAILY [facility]; Protocol Last Admin: 03/21/25 08:47 Dose: 5 mg Documented By: ORI Atorvastatin Calcium (Atorvastatin Calcium 80 Mg Tablet) 80 mg PO BEDTIME [facility] On Hold: 03/18/25 15:11 Last Admin: 03/17/25 20:24 Dose: 80 mg Documented By: EDI Baclofen (Baclofen 10 Mg Tablet) 10 mg PO TID [facility] Last Admin: 03/21/25 08:48 Dose: 10 mg Documented By: ORI Calcium Carbonate (Calcium Carbonate 750 Mg Tab.Chew) 750 mg PO Q4H PRN PRN Reason: Heartburn Last Admin: 03/16/25 12:14 Dose: 750 mg Documented By: DANE Dextrose (Dextrose 50 % 25 Gm/50 Ml Syringe) 25 gm IVPUSH Q15M PRN; Protocol PRN Reason: per Hypoglycemia Standing Ord. Docusate Sodium (Docusate Sodium 100 Mg Capsule) 100 mg PO BID [facility] Last Admin: 03/21/25 08:49 Dose: Not Given Documented By: ORI Non-Admin Reason: Patient Refused Empagliflozin (Empagliflozin 25 Mg Tablet) 25 mg PO DAILY [facility] Last Admin: 03/21/25 07:59 Dose: Not Given Documented By: ORI Non-Admin Reason: hold for OR Enoxaparin Sodium (Enoxaparin Sodium 40 Mg/0.4 Ml Syringe) 40 mg SUBCUT Q24H [facility] Last Admin: 03/21/25 00:31 Dose: Not Given Documented By: GABINO Non-Admin Reason: surgical procedure 03/21 Epinephrine (Epinephrine 1 Mg/Ml Vial) 0.3 mg IM DAILY PRN PRN Reason: Allergic Reaction Fluticasone Propionate (Fluticasone Propionate Nasal 16 Gm Stuart) 1 spray NOSTRIL-B BID PRN PRN Reason: Allergy Symptoms Gabapentin (Gabapentin 400 Mg Capsule) 800 mg PO TID [facility] Last Admin: 03/21/25 08:47 Dose: 800 mg Documented By: ORI Glucose (Glucose Gel 15 Gm Gel..Gram.) 15 gm PO Q15M PRN; Protocol PRN Reason: per Hypoglycemia Standing Ord. Guaifenesin (Guaifenesin 200 Mg/10 Ml 10 Ml Liquid) 10 ml PO Q4H PRN PRN Reason: Cough Hydralazine HCl (Hydralazine Hcl 50 Mg Tablet) 100 mg PO TID [facility]; Protocol Last Admin: 03/21/25 07:59 Dose: Not Given Documented By: ORI Non-Admin Reason: hold for or Hydrochlorothiazide (Hydrochlorothiazide 50 Mg Tablet) 50 mg PO DAILY [facility] Last Admin: 03/21/25 07:59 Dose: Not Given Documented By: ORI Non-Admin Reason: hold for OR Hydromorphone HCl (Hydromorphone Hcl 1 Mg/Ml Syringe) 1 mg IVPUSH Q3H PRN; Protocol PRN Reason: Pain, Severe (Pain Scale 7-10) Piperacillin Sod/Tazobactam (Sod 3.375 gm/ Sodium Chloride) 50 mls @ 100 mls/hr IV Q6H [facility] Last Admin: 03/21/25 09:07 Dose: 100 mls/hr Documented By: ORI Daptomycin 700 mg/ Sodium (Chloride) 64 mls @ 87.141 mls/hr IV Q24H [facility] Last Infusion: 03/20/25 17:29 Dose: Infused Documented By: ARIK Insulin Glargine (Insulin Glargine,Hum.Rec.Anlog 100 Unit/Ml 10 Ml Vial) 60 unit SUBCUT BEDTIME [facility] Last Admin: 03/20/25 21:44 Dose: Not Given Documented By: GABINO Non-Admin Reason: Physician Held Med Insulin Human Lispro (Insulin Lispro 100 Unit/Ml 3 Ml Vial) 0 unit SUBCUT QIDACHS [facility]; Protocol Last Admin: 03/21/25 08:01 Dose: Not Given Documented By: ORI Non-Admin Reason: NPO held for OR Labetalol HCl (Labetalol Hcl 100 Mg Tablet) 300 mg PO BID [facility] Last Admin: 03/21/25 08:47 Dose: 300 mg Documented By: ORI Loratadine (Loratadine 10 Mg Tablet) 10 mg PO DAILY [facility] Last Admin: 03/21/25 08:48 Dose: Not Given Documented By: ORI Non-Admin Reason: Patient Refused Losartan Potassium (Losartan Potassium 50 Mg Tablet) 100 mg PO DAILY [facility]; Protocol Last Admin: 03/21/25 08:48 Dose: Not Given Documented By: ORI Non-Admin Reason: held for OR Magnesium Hydroxide (Milk Of Magnesia 30 Ml Oral.Susp) 30 ml PO DAILY PRN PRN Reason: Constipation Magnesium Oxide (Magnesium Oxide 400 Mg Tablet) 400 mg PO DAILY [facility] Last Admin: 03/21/25 08:49 Dose: 400 mg Documented By: ORI Melatonin (Melatonin 3 Mg Tablet) 6 mg PO BEDTIME PRN PRN Reason: Insomnia Nicotine (Nicotine 21 Mg Patch.Td24) 21 mg TRANSDERMA DAILY [facility] Last Admin: 03/21/25 08:49 Dose: 21 mg Documented By: ORI Non-Formulary Medication (Acetaminophen) 650 mg PO Q8H PRN PRN Reason: pain Nystatin/Triamcinolone Acetonide (Nystatin/Triamcinolone Cream 15 Gm Tube) 1 appl TOPICAL BID PRN PRN Reason: Rash Ondansetron HCl (Ondansetron Hcl 4 Mg/2 Ml Vial) 4 mg IVPUSH Q8H PRN PRN Reason: Nausea and Vomiting Last Admin: 03/16/25 17:01 Dose: 4 mg Documented By: DANE Ondansetron HCl (Ondansetron Odt 4 Mg Tab.Rapdis) 4 mg TRANSLINGU Q8H PRN PRN Reason: Nausea and Vomiting Oxycodone HCl (Oxycodone Hcl Immed Release 5 Mg Tablet) 10 mg PO Q4H PRN PRN Reason: severe pain Last Admin: 03/21/25 05:14 Dose: 10 mg Documented By: GABINO Polyethylene Glycol (Polyethylene Glycol 3350 17 Gm Powd.Pack) 17 gm PO DAILY PRN PRN Reason: Constipation Senna (Sennosides 8.6 Mg Tablet) 17.2 mg PO BEDTIME [facility] Last Admin: 03/20/25 20:06 Dose: 17.2 mg Documented By: GABINO Sodium Chloride (0.9 % Sodium Chloride Flush 3 Ml Syringe) 3 ml IVFLUSH [facility] Last Admin: 03/21/25 09:07 Dose: 3 ml Documented By: ORI Sodium Chloride (0.9 % Sodium Chloride Flush 3 Ml Syringe) 3 ml IVFLUSH [facility] Last Admin: 03/21/25 09:08 Dose: Not Given Documented By: ORI Non-Admin Reason: Duplicate Order Spironolactone (Spironolactone 25 Mg Tablet) 25 mg PO DAILY [facility]; Protocol Last Admin: 03/21/25 08:00 Dose: Not Given Documented By: ORI Non-Admin Reason: hold for OR Tamsulosin HCl (Tamsulosin Hcl 0.4 Mg Capsule) 0.4 mg PO DAILY [facility] Last Admin: 03/21/25 08:47 Dose: 0.4 mg Documented By: ORI Labs 03/21/25 05:12 03/21/25 05:12 Labs: Laboratory Results - last 24 hr 03/20/25 03/20/25 03/20/25 11:16 15:29 20:37 MCV MCH MCHC RDW Plt Count MPV Absolute Nucleated RBC Nucleated RBC % (auto) Anion Gap Estim Creat Clear Calc Estimated GFR POC Glucose 215 H 122 H 179 H Random Glucose Calcium Magnesium 03/21/25 03/21/25 05:12 07:36 MCV 85.7 MCH 27.5 MCHC 32.0 RDW 13.9 Plt Count 377 D MPV 8.9 L Absolute Nucleated RBC 0.000 Nucleated RBC % (auto) 0.0 Anion Gap 13 Estim Creat Clear Calc 95.9 Estimated GFR > 60 POC Glucose 168 H Random Glucose 188 H Calcium 8.8 Magnesium 2.1 Microbiology Microbiology Results: Microbiology 03/16/25 00:59 Blood Culture - Final Blood - Venous No growth after 5 days. 03/16/25 00:59 Blood Culture - Final Blood - Venous No growth after 5 days. Assessment and Plan (1) Hyperglycemia: Status: Acute Plan 54F PMH DM, htn, hld, obesity, history of paraspinal abscess, copd, bph, presented with hyperglycmeia and right 1st toe ulcer right first toe osteomyelitis due to DM conitnue dapto, zosyn plan for amputation today, 03/21/25 shelter antibiotics to be determined by margins, no antibiotics versus 6 weeks of IV daptomycin dm with hyperglycemia insulin Hypertension Amlodipine, labetalol, losartan, chlorthalidone Right renal mass Outpatient Nephrology BPH Tamsulosin Morbid obesity Weight loss DVT prophylaxis with Lovenox Full code reason for continued hospitalization: surgery Quality Stroke Does the patient have a stroke diagnosis?: No Reason for No Anti-thrombotic by Day Two: N/A - Med Ordered VTE Prior VTE?: No VTE Risk Level:: Medical - moderate - high VTE Device Contraindication: Treatment Not Indicated VTE Drug Contraindication: N/A - Med Ordered
--- NOTE | 2025-03-21 10:51 | MHC.CM.PN ---
PER MD ROUNDS, PLAN FOR PT TO HAVE A TOE AMP. IV ABX NEEDS TO BE DETERMINED AFTER PROCEDURE. DCP: HOME ? SERVICES RIDE VS SHUTTLE
[2025-03-21 11:38] LABS: Glucose, Whole Blood 156 mg/dL (60-115)
[2025-03-21 13:02] LABS: Glucose, Whole Blood 134 mg/dL (60-115)
--- NOTE | 2025-03-21 13:08 | PC.NURSE ---
jenelle ls clear and diminished
--- NOTE | 2025-03-21 15:28 | P.OP_ITS ---
Operative Note Operative Note Date of Service: 03/21/25 Narrative: Preoperative diagnosis: Right great toe, diabetes Postoperative diagnosis: Same Procedure: Amputation of right great toe Surgeon: Sergio Maxwell MD Frame Table Operator Helper: Christiana Lebron PA-C; Truong Morin PA-C, EMY Brown Anesthesia: General plus popliteal block Indications for procedure: 54-year-old male patient with a history of diabetes, peripheral vascular disease presenting with an infected right great toe found on MRI to have osteomyelitis. The patient was given the option of prolonged IV antibiotics versus amputation. He wishes to proceed with the amputation. Operative findings: Open wound in the right great toe involving the distal phalanx. Specimen: Right great toe Estimated blood loss: 20 mL Complications: None Procedure details: Patient was brought to the OR and placed in a supine position. A popliteal block was previously applied by anesthesia. After administering general anesthesia the patient's right foot was prepped with Betadine and draped in a sterile fashion. A surgical time-out was called the consent confirmed. Patient received preoperative antibiotics and Venodyne boots were in place. Local anesthesia was not used because of the previous block. A fishmouth type incision was then created around the great toe and extended up along the surface of the metatarsal head the incision was carried down through subcutaneous tissue and up to the bone. Electrocautery was used to maintain hemostasis and to dissect down along the proximal phalanx up to the metatarsal phalangeal joint. The toe was removed at the MP joint using electrocautery. This was passed off the table and sent to pathology for further examination. The metatarsal head was then further dissected using electrocautery. Bone saw was used to resect metatarsal head. Hemostasis was assured using electrocautery. After assuring adequate hemostasis the wounds were irrigated with saline solution and suctioned dry. Deep dermis was then reapproximated using interrupted 3-0 Polysorb sutures. Skin was then closed using interrupted 3-0 nylon sutures in a mattress formation. Sterile dressings includinggauze, Kerlix, and Joe bandage was then applied. The patient tolerated the procedure well. Sponge, instrument, and needle counts reported as correct. The patient was transferred to PACU in stable condition.
[2025-03-21 16:32] LABS: Glucose, Whole Blood 155 mg/dL (60-115)
[2025-03-21 20:42] LABS: Glucose, Whole Blood 270 mg/dL (60-115)
[2025-03-21] MEDS: Insulin Glargine,Hum.rec.anlog 100 UNIT/ML 10 ML VIAL 60 UNIT SUBCUT (20:58)
[2025-03-22] VITALS (10 sets, daily range): BP systolic 108–147; BP diastolic 55–76; PULSE 63–70; RESP 16–20; TEMP 36–36.6; O2SAT 94–99
[2025-03-22] MEDS: oxyCODONE HCl Immed Release 5 MG TABLET 10 MG PO ×6 (03:54→19:38)
--- NOTE | 2025-03-22 06:22 | PM.PNGS ---
Subjective Subjective Date of Service: 03/22/25 <Lo Griggs - Last Filed: 03/22/25 07:56> 03/22/25 <Christiana Lebron PA-C - Last Filed: 03/22/25 08:03> 03/22/25 <Sergio Maxwell MD - Last Filed: 03/22/25 08:12> Interval history: Patient is a 54 year old male s/p right great toe amputation POD#1. No acute events overnight. Complaining of significant pain in his right foot since yesterday, he states is 9/10 this AM upon waking, constant, describes as pounding at the incision site and stinging in his right foot and ankle. Pain is alleviated to about 5/10 with IV Dilaudid and PO oxycodone. Has not ambulated OOB since surgery, reports at baseline he ambulates at home without assistive devices. He reports sensation is intact but limited plantar/dorsiflexion of his right foot since yesterday. Tolerated solid diet last night without nausea, vomiting, or abdominal pain. Reports having loose BM yesterday after surgery. Denies fevers, chills, shortness of breath, chest pain, or any other symptoms. <Lo [facility] Last Filed: 03/22/25 07:56> Physical Exam Vital Signs: Vital Signs: Last Vital Signs Temp 97.9 F 03/22/25 03:50 Pulse 63 03/22/25 03:50 Resp 16 03/22/25 03:50 BP 111/55 L 03/22/25 03:50 Pulse Ox 94 03/22/25 03:50 O2 Del Method Room Air 03/22/25 03:50 O2 Flow Rate 2 03/21/25 16:11 BMI result Body Mass Index 39.3 <Lo [facility] Last Filed: 03/22/25 07:56> Const: General: comfortable and no acute distress <Lo [facility] Last Filed: 03/22/25 07:56> Resp: Effort & Inspection: normal respiratory effort and able to speak in complete sentences <[facility] Last Filed: 03/22/25 07:56> GI: Palpation (GI): Soft to palpation, not firm, nontender, no guarding and not rigid <[facility] Last Filed: 03/22/25 07:56> Skin: General skin exam: no rashes or lesions noted <Lo Griggs Last Filed: 03/22/25 07:56> Extrem: Other: Dressing dry and intact. Incision over right 1st MTP joint without purulence or odor. <Lo Griggs Last Filed: 03/22/25 07:56> Right lower extremity: ankle and foot (pain with light touch ) Details: vascular exam Details: dorsalis pedis pulse present (2+) <Lo [facility] Last Filed: 03/22/25 07:56> Objective Data Active Medications Acetaminophen (Acetaminophen 325 Mg Tablet) 650 mg PO Q6H PRN PRN Reason: Pain, Mild 1-3,fever,headache Last Admin: 03/20/25 09:34 Dose: 650 mg Documented By: SHANTELL Albuterol Sulfate (Albuterol Sulfate 90 Mcg 8 Gm Inhaler) 2 puff INHALE Q4H PRN PRN Reason: Wheezing Albuterol/Ipratropium (Albuterol/Iprat 2.5/0.5mg 3 Ml Ampul.Neb) 3 ml INHALE Q4H PRN PRN Reason: Shortness of Breath/Wheezing Amlodipine Besylate (Amlodipine Besylate 5 Mg Tablet) 5 mg PO DAILY [facility]; Protocol Last Admin: 03/21/25 08:47 Dose: 5 mg Documented By: ORI Atorvastatin Calcium (Atorvastatin Calcium 80 Mg Tablet) 80 mg PO BEDTIME [facility] Last Admin: 03/21/25 20:57 Dose: 80 mg Documented By: GABINO Baclofen (Baclofen 10 Mg Tablet) 10 mg PO TID [facility] Last Admin: 03/21/25 20:57 Dose: 10 mg Documented By: GABINO Calcium Carbonate (Calcium Carbonate 750 Mg Tab.Chew) 750 mg PO Q4H PRN PRN Reason: Heartburn Last Admin: 03/16/25 12:14 Dose: 750 mg Documented By: LUCIAME Dextrose (Dextrose 50 % 25 Gm/50 Ml Syringe) 25 gm IVPUSH Q15M PRN; Protocol PRN Reason: per Hypoglycemia Standing Ord. Docusate Sodium (Docusate Sodium 100 Mg Capsule) 100 mg PO BID [facility] Last Admin: 03/21/25 20:57 Dose: 100 mg Documented By: GABINO Empagliflozin (Empagliflozin 25 Mg Tablet) 25 mg PO DAILY [facility] Last Admin: 03/21/25 07:59 Dose: Not Given Documented By: ORI Non-Admin Reason: hold for OR Enoxaparin Sodium (Enoxaparin Sodium 40 Mg/0.4 Ml Syringe) 40 mg SUBCUT Q24H [facility] Last Admin: 03/22/25 03:03 Dose: 40 mg Documented By: HORTENCIA Epinephrine (Epinephrine 1 Mg/Ml Vial) 0.3 mg IM DAILY PRN PRN Reason: Allergic Reaction Fluticasone Propionate (Fluticasone Propionate Nasal 16 Gm [place]) 1 spray NOSTRIL-B BID PRN PRN Reason: Allergy Symptoms Gabapentin (Gabapentin 400 Mg Capsule) 800 mg PO TID [facility] Last Admin: 03/21/25 20:58 Dose: 800 mg Documented By: GABINO Glucose (Glucose Gel 15 Gm Gel..Gram.) 15 gm PO Q15M PRN; Protocol PRN Reason: per Hypoglycemia Standing Ord. Guaifenesin (Guaifenesin 200 Mg/10 Ml 10 Ml Liquid) 10 ml PO Q4H PRN PRN Reason: Cough Hydralazine HCl (Hydralazine Hcl 50 Mg Tablet) 100 mg PO TID [facility]; Protocol Last Admin: 03/21/25 20:56 Dose: 100 mg Documented By: GABINO Hydrochlorothiazide (Hydrochlorothiazide 50 Mg Tablet) 50 mg PO DAILY [facility] Last Admin: 03/21/25 07:59 Dose: Not Given Documented By: ORI Non-Admin Reason: hold for OR Hydromorphone HCl (Hydromorphone Hcl 1 Mg/Ml Syringe) 1 mg IVPUSH Q3H PRN; Protocol PRN Reason: Pain, Severe (Pain Scale 7-10) Last Admin: 03/22/25 01:24 Dose: 1 mg Documented By: HORTENCIA Piperacillin Sod/Tazobactam (Sod 3.375 gm/ Sodium Chloride) 50 mls @ 100 mls/hr IV Q6H [facility] Last Infusion: 03/22/25 03:42 Dose: Infused Documented By: HORTENCIA Daptomycin 700 mg/ Sodium (Chloride) 64 mls @ 87.141 mls/hr IV Q24H [facility] Last Infusion: 03/21/25 18:15 Dose: Infused Documented By: ORI Insulin Glargine (Insulin Glargine,Hum.Rec.Anlog 100 Unit/Ml 10 Ml Vial) 60 unit SUBCUT BEDTIME [facility] Last Admin: 03/21/25 20:58 Dose: 60 unit Documented By: GABINO Insulin Human Lispro (Insulin Lispro 100 Unit/Ml 3 Ml Vial) 0 unit SUBCUT QIDACHS [facility]; Protocol Last Admin: 03/21/25 20:58 Dose: 10 unit Documented By: GABINO Labetalol HCl (Labetalol Hcl 100 Mg Tablet) 300 mg PO BID [facility] Last Admin: 03/21/25 20:57 Dose: 300 mg Documented By: GABINO Loratadine (Loratadine 10 Mg Tablet) 10 mg PO DAILY [facility] Last Admin: 03/21/25 08:48 Dose: Not Given Documented By: ORI Non-Admin Reason: Patient Refused Losartan Potassium (Losartan Potassium 50 Mg Tablet) 100 mg PO DAILY [facility]; Protocol Last Admin: 03/21/25 08:48 Dose: Not Given Documented By: ORI Non-Admin Reason: held for OR Magnesium Hydroxide (Milk Of Magnesia 30 Ml Oral.Susp) 30 ml PO DAILY PRN PRN Reason: Constipation Magnesium Oxide (Magnesium Oxide 400 Mg Tablet) 400 mg PO DAILY [facility] Last Admin: 03/21/25 08:49 Dose: 400 mg Documented By: ORI Melatonin (Melatonin 3 Mg Tablet) 6 mg PO BEDTIME PRN PRN Reason: Insomnia Last Admin: 03/21/25 23:51 Dose: 6 mg Documented By: HORTENCIA Nicotine (Nicotine 21 Mg Patch.Td24) 21 mg TRANSDERMA DAILY [facility] Last Admin: 03/21/25 08:49 Dose: 21 mg Documented By: ORI Nystatin/Triamcinolone Acetonide (Nystatin/Triamcinolone Cream 15 Gm Tube) 1 appl TOPICAL BID PRN PRN Reason: Rash Ondansetron HCl (Ondansetron Hcl 4 Mg/2 Ml Vial) 4 mg IVPUSH Q8H PRN PRN Reason: Nausea and Vomiting Last Admin: 03/16/25 17:01 Dose: 4 mg Documented By: DANE Ondansetron HCl (Ondansetron Odt 4 Mg Tab.Rapdis) 4 mg TRANSLINGU Q8H PRN PRN Reason: Nausea and Vomiting Oxycodone HCl (Oxycodone Hcl Immed Release 5 Mg Tablet) 10 mg PO Q4H PRN PRN Reason: severe pain Last Admin: 03/22/25 03:54 Dose: 10 mg Documented By: HORTENCIA Polyethylene Glycol (Polyethylene Glycol 3350 17 Gm Powd.Pack) 17 gm PO DAILY PRN PRN Reason: Constipation Senna (Sennosides 8.6 Mg Tablet) 17.2 mg PO BEDTIME [facility] Last Admin: 03/21/25 20:57 Dose: 17.2 mg Documented By: GABINO Sodium Chloride (0.9 % Sodium Chloride Flush 3 Ml Syringe) 3 ml IVFLUSH [facility] Last Admin: 03/21/25 23:56 Dose: 3 ml Documented By: HORTENCIA Comments: this PC not scanning any flushes Sodium Chloride (0.9 % Sodium Chloride Flush 3 Ml Syringe) [facility] Last Admin: 03/22/25 00:26 Dose: Not Given Documented By: HORTENCIA Non-Admin Reason: IV Running Spironolactone (Spironolactone 25 Mg Tablet) 25 mg PO DAILY [facility]; Protocol Last Admin: 03/21/25 08:00 Dose: Not Given Documented By: ORI Non-Admin Reason: hold for OR Tamsulosin HCl (Tamsulosin Hcl 0.4 Mg Capsule) 0.4 mg PO DAILY [facility] Last Admin: 03/21/25 08:47 Dose: 0.4 mg Documented By: ORI <Lo Griggs - Last Filed: 03/22/25 07:56> Labs CBC & Chem 7: 03/22/25 05:27 03/22/25 05:27 <Lo Griggs - Last Filed: 03/22/25 07:56> Labs: Laboratory Results - last 24 hr 03/21/25 03/21/25 03/21/25 05:12 07:36 11:34 Anion Gap 13 Estim Creat Clear Calc 95.9 Estimated GFR > 60 POC Glucose 168 H 156 H Random Glucose 188 H Calcium 8.8 Magnesium 2.1 03/21/25 03/21/25 03/21/25 12:58 16:27 20:38 Anion Gap Estim Creat Clear Calc Estimated GFR POC Glucose 134 H 155 H 270 H Random Glucose Calcium Magnesium <Lo Griggs - Last Filed: 03/22/25 07:56> Microbiology Microbiology Results: Microbiology 03/16/25 00:59 Blood Culture - Final Blood - Venous No growth after 5 days. 03/16/25 00:59 Blood Culture - Final Blood - Venous No growth after 5 days. <Lo Griggs - Last Filed: 03/22/25 07:56> Procedures Date of Service Date of Service: 03/22/25 <Lo Griggs - Last Filed: 03/22/25 07:56> 03/22/25 <Christiana Lebron PA-C - Last Filed: 03/22/25 08:03> 03/22/25 <Sergio Maxwell MD - Last Filed: 03/22/25 08:12> Progress Note: A&P Assessment and plan (1) Status post amputation of right great toe: Status: Acute <Lo Griggs - Last Filed: 03/22/25 07:56> Assessment and Plan: Patient is a 54 year old male s/p right great toe amputation POD#1 due to diabetic foot ulcer with cellulitis and osteomyelitis. CBC with leukocytosis at 15.6 this AM, likely reactive. VSS. Patient reports having right foot pain since amputation that is alleviated with scheduled IV Dilaudid and PO oxycodone. Has not ambulated OOB since surgery. Tolerating solids. Loose BM yesterday. Patient appears overall to be in early stages of healing, appropriate level of pain, continue to monitor. Encourage OOB today and elevating foot when resting. Continue current pain medications. Appreciate hospitalist note of IV daptomycin for 6 weeks if margins are positive, no ABX if margins are negative, for now continue IV Zosyn and Daptomycin. <Lo Vale Last Filed: 03/22/25 07:56> Patient is a 54 year old male s/p right great toe amputation POD#1 due to diabetic foot ulcer with cellulitis and osteomyelitis. CBC with leukocytosis at 15.6 this AM, likely reactive. VSS. Patient reports having right foot pain since amputation that is alleviated with scheduled IV Dilaudid and PO oxycodone. Has not ambulated OOB since surgery. Tolerating solids. Loose BM yesterday. Patient appears overall to be in early stages of healing, appropriate level of pain, continue to monitor. Encourage OOB today and elevating foot when resting. Continue current pain medications. Appreciate hospitalist note of IV daptomycin for 6 weeks if margins are positive, no ABX if margins are negative, for now continue IV Zosyn and Daptomycin. Agree with above assessment and plan by Anson QUEVEDO. POD #1 s/p right great toe amputation. He is doing fairly well post op, pain at site but controlled. VSS. Amputation site clean appearing with sutures intact, no necrosis, very mild edema. Dressing changed with xeroform, fluffs, kerlix and donaldo wrap. Cont right leg elevation. Cont IV abx for now, pain control, POC control. He has good ROM of knee and toes but having difficulty moving foot, which is likely secondary to the block. Appears to be slowly improving. Sensation is intact, brisk cap refill. This will likely continue to improve, will reassess later today. <Christiana Lebron PA-C - Last Filed: 03/22/25 08:03> Patient is a 54 year old male s/p right great toe amputation POD#1 due to diabetic foot ulcer with cellulitis and osteomyelitis. CBC with leukocytosis at 15.6 this AM, likely reactive. VSS. Patient reports having right foot pain since amputation that is alleviated with scheduled IV Dilaudid and PO oxycodone. Has not ambulated OOB since surgery. Tolerating solids. Loose BM yesterday. Patient appears overall to be in early stages of healing, appropriate level of pain, continue to monitor. Encourage OOB today and elevating foot when resting. Continue current pain medications. Appreciate hospitalist note of IV daptomycin for 6 weeks if margins are positive, no ABX if margins are negative, for now continue IV Zosyn and Daptomycin. Agree with above assessment and plan by Anson QUEVEDO. POD #1 s/p right great toe amputation. He is doing fairly well post op, pain at site but controlled. VSS. Amputation site clean appearing with sutures intact, no necrosis, very mild edema. Dressing changed with xeroform, fluffs, kerlix and donaldo wrap. Cont right leg elevation. Cont IV abx for now, pain control, POC control. He has good ROM of knee and toes but having difficulty moving foot, which is likely secondary to the block. Appears to be slowly improving. Sensation is intact, brisk cap refill. This will likely continue to improve, will reassess later today. Patient seen and examined. Agree with the above assessment and plan. He has residual effects from the popliteal block. We will need continued hospitalization to assure proper wound healing. Patient understands and agrees with the plan. <Sergio Maxwell MD - Last Filed: 03/22/25 08:12> Time Spent With Patient Time: Total time managing care of this patient today ____ minutes. <Lo Griggs - Filed: 03/22/25 07:56> Quality Stroke Does the patient have a stroke diagnosis?: No <Lo Griggs Filed: 03/22/25 07:56> Reason for No Anti-thrombotic by Day Two: N/A - Med Ordered <Lo [facility] Filed: 03/22/25 07:56> VTE Prior VTE?: No <Lo [facility] Filed: 03/22/25 07:56> VTE Risk Level:: Medical - moderate - high <Lo Griggs Filed: 03/22/25 07:56> VTE Device Contraindication: Treatment Not Indicated <Lo [facility] Filed: 03/22/25 07:56> VTE Drug Contraindication: N/A - Med Ordered <Lo Griggs [facility] Filed: 03/22/25 07:56>
[2025-03-22 06:49] LABS: Hematocrit 40.5 % (42.0-52.0); Hemoglobin 12.9 g/dl (14.0-18.0); Mean Corpuscular HGB Conc 31.9 g/dl (31.0-36.0); Mean Corpuscular Hemoglobin 27.3 pg (27.0-33.0); Mean Corpuscular Volume 85.8 fL (80.0-98.0); NRBC Abs Auto 0.000 X10*3/uL (0.0-0.012); NRBC Pct Auto 0.0 /100WBC (0.0-0.2); Platelet Count 452 X10*3/uL (160-400); Red Blood Count 4.72 X10*6/uL (4.60-5.80); White Blood Count 15.6 X10*3/uL (4.8-10.8)
[2025-03-22 06:53] LABS: Anion Gap 12 (12-20); Blood Urea Nitrogen 31 mg/dL (9-16); Calcium 8.7 mg/dL (8.4-10.2); Carbon Dioxide 25 mmol/L (22-29); Chloride 99 mmol/L (96-108); Creatinine Clr Calc Pharmacy 82.6; Estimated Glomerular Filt Rate 58; Potassium 4.9 mmol/L (3.3-5.1); Sodium 131 mmol/L (135-145)
[2025-03-22 07:37] LABS: Glucose, Whole Blood 340 mg/dL (60-115)
[2025-03-22] MEDS: Nicotine 21 MG PATCH.TD24 TRANSDERMA (08:08)
[2025-03-22] MEDS: 0.9 % Sodium Chloride Flush 3 ML SYRINGE IVFLUSH ×2 (08:10→19:43)
--- NOTE | 2025-03-22 08:26 | HO.POSTANES ---
Post Anesthesia Evaluation Post Anesthesia Evaluation Date of Service: 03/22/25 Vital Signs: Vital Signs Temp Pulse Resp BP Pulse Ox O2 Del Method 03/22/25 07:59 98 F 67 18 147/75 H 95 Room Air 03/22/25 04:35 18 03/22/25 03:50 97.9 F 63 16 111/55 L 94 Room Air 03/22/25 01:19 66 117/68 03/22/25 00:40 16 03/22/25 00:00 97.7 F 70 18 116/63 95 Room Air 03/21/25 21:11 18 Anesthesia: Nerve Block and General Mental Status: Awake Pain Control: Satisfactory Nausea/Vomiting: None Hydration: Adequate Anesthesia-Related Issues: No Anes. Related Issues
--- NOTE | 2025-03-22 09:09 | PC.RT ---
pt has not worn cpap for more than 5 days. therfore order to be dc'd per policy
--- NOTE | 2025-03-22 09:35 | P.PNIM_ITS ---
Subjective Subjective Date of Service: 03/22/25 Interval History: surgical site pain Physical Exam 2 Vital Signs: Vital Signs: Last Vital Signs Temp 98 F 03/22/25 07:59 Pulse 67 03/22/25 07:59 Resp 18 03/22/25 07:59 BP 147/75 H 03/22/25 07:59 Pulse Ox 95 03/22/25 07:59 O2 Del Method Room Air 03/22/25 07:59 O2 Flow Rate 2 03/21/25 16:11 BMI result Body Mass Index 39.3 Const: General: comfortable and no acute distress Resp: Effort & Inspection: normal respiratory effort and able to speak in complete sentences GI: Palpation (GI): Soft to palpation, not firm, nontender, no guarding and not rigid Skin: General skin exam: no rashes or lesions noted Extrem: Other: Dressing dry and intact. Incision over right 1st MTP joint without purulence or odor. Right lower extremity: ankle and foot (pain with light touch ) Details: vascular exam Details: dorsalis pedis pulse present (2+) Objective Data Active Medications Acetaminophen (Acetaminophen 325 Mg Tablet) 650 mg PO Q6H PRN PRN Reason: Pain, Mild 1-3,fever,headache Last Admin: 03/20/25 09:34 Dose: 650 mg Documented By: SHANTELL Albuterol Sulfate (Albuterol Sulfate 90 Mcg 8 Gm Inhaler) 2 puff INHALE Q4H PRN PRN Reason: Wheezing Albuterol/Ipratropium (Albuterol/Iprat 2.5/0.5mg 3 Ml Ampul.Neb) 3 ml INHALE Q4H PRN PRN Reason: Shortness of Breath/Wheezing Amlodipine Besylate (Amlodipine Besylate 5 Mg Tablet) 5 mg PO DAILY [facility]; Protocol Last Admin: 03/22/25 08:10 Dose: 5 mg Documented By: SHANTELL Atorvastatin Calcium (Atorvastatin Calcium 80 Mg Tablet) 80 mg PO BEDTIME [facility] Last Admin: 03/21/25 20:57 Dose: 80 mg Documented By: GABINO Baclofen (Baclofen 10 Mg Tablet) 10 mg PO TID [facility] Last Admin: 03/22/25 08:10 Dose: 10 mg Documented By: SHANTELL Calcium Carbonate (Calcium Carbonate 750 Mg Tab.Chew) 750 mg PO Q4H PRN PRN Reason: Heartburn Last Admin: 03/16/25 12:14 Dose: 750 mg Documented By: DANE Dextrose (Dextrose 50 % 25 Gm/50 Ml Syringe) 25 gm IVPUSH Q15M PRN; Protocol PRN Reason: per Hypoglycemia Standing Ord. Docusate Sodium (Docusate Sodium 100 Mg Capsule) 100 mg PO BID [facility] Last Admin: 03/22/25 08:11 Dose: 100 mg Documented By: SHANTELL Empagliflozin (Empagliflozin 25 Mg Tablet) 25 mg PO DAILY [facility] Last Admin: 03/22/25 08:10 Dose: 25 mg Documented By: SHANTELL Enoxaparin Sodium (Enoxaparin Sodium 40 Mg/0.4 Ml Syringe) 40 mg SUBCUT Q24H [facility] Last Admin: 03/22/25 03:03 Dose: 40 mg Documented By: HORTENCIA Epinephrine (Epinephrine 1 Mg/Ml Vial) 0.3 mg IM DAILY PRN PRN Reason: Allergic Reaction Fluticasone Propionate (Fluticasone Propionate Nasal 16 Gm [place]) 1 spray NOSTRIL-B BID PRN PRN Reason: Allergy Symptoms Gabapentin (Gabapentin 400 Mg Capsule) 800 mg PO TID [facility] Last Admin: 03/22/25 08:10 Dose: 800 mg Documented By: SHANTELL Glucose (Glucose Gel 15 Gm Gel..Gram.) 15 gm PO Q15M PRN; Protocol PRN Reason: per Hypoglycemia Standing Ord. Guaifenesin (Guaifenesin 200 Mg/10 Ml 10 Ml Liquid) 10 ml PO Q4H PRN PRN Reason: Cough Hydralazine HCl (Hydralazine Hcl 50 Mg Tablet) 100 mg PO TID [facility]; Protocol Last Admin: 03/22/25 08:11 Dose: 100 mg Documented By: SHANTELL Hydrochlorothiazide (Hydrochlorothiazide 50 Mg Tablet) 50 mg PO DAILY [facility] Last Admin: 03/22/25 08:11 Dose: 50 mg Documented By: SHANTELL Hydromorphone HCl (Hydromorphone Hcl 1 Mg/Ml Syringe) 1 mg IVPUSH Q3H PRN; Protocol PRN Reason: Pain, Severe (Pain Scale 7-10) Last Admin: 03/22/25 06:58 Dose: 1 mg Documented By: SHANTELL Piperacillin Sod/Tazobactam (Sod 3.375 gm/ Sodium Chloride) 50 mls @ 100 mls/hr IV Q6H [facility] Last Infusion: 03/22/25 08:44 Dose: Infused Documented By: SHANTELL Daptomycin 700 mg/ Sodium (Chloride) 64 mls @ 87.141 mls/hr IV Q24H [facility] Last Infusion: 03/21/25 18:15 Dose: Infused Documented By: ORI Insulin Glargine (Insulin Glargine,Hum.Rec.Anlog 100 Unit/Ml 10 Ml Vial) 60 unit SUBCUT BEDTIME [facility] Last Admin: 03/21/25 20:58 Dose: 60 unit Documented By: TUMMONTRELL Insulin Human Lispro (Insulin Lispro 100 Unit/Ml 3 Ml Vial) 0 unit SUBCUT QIDACHS [facility]; Protocol Last Admin: 03/22/25 08:09 Dose: 14 unit Documented By: SHANTELL Labetalol HCl (Labetalol Hcl 100 Mg Tablet) 300 mg PO BID [facility] Last Admin: 03/22/25 08:10 Dose: 300 mg Documented By: SHANTELL Loratadine (Loratadine 10 Mg Tablet) 10 mg PO DAILY [facility] Last Admin: 03/22/25 08:11 Dose: 10 mg Documented By: SHANTELL Losartan Potassium (Losartan Potassium 50 Mg Tablet) 100 mg PO DAILY [facility]; Protocol Last Admin: 03/22/25 08:11 Dose: 100 mg Documented By: SHANTELL Magnesium Hydroxide (Milk Of Magnesia 30 Ml Oral.Susp) 30 ml PO DAILY PRN PRN Reason: Constipation Magnesium Oxide (Magnesium Oxide 400 Mg Tablet) 400 mg PO DAILY [facility] Last Admin: 03/22/25 08:11 Dose: 400 mg Documented By: SHANTELL Melatonin (Melatonin 3 Mg Tablet) 6 mg PO BEDTIME PRN PRN Reason: Insomnia Last Admin: 03/21/25 23:51 Dose: 6 mg Documented By: HORTENCIA Nicotine (Nicotine 21 Mg Patch.Td24) 21 mg TRANSDERMA DAILY [facility] Last Admin: 03/22/25 08:08 Dose: 21 mg Documented By: SHANTELL Nystatin/Triamcinolone Acetonide (Nystatin/Triamcinolone Cream 15 Gm Tube) 1 appl TOPICAL BID PRN PRN Reason: Rash Ondansetron HCl (Ondansetron Hcl 4 Mg/2 Ml Vial) 4 mg IVPUSH Q8H PRN PRN Reason: Nausea and Vomiting Last Admin: 03/16/25 17:01 Dose: 4 mg Documented By: DANE Ondansetron HCl (Ondansetron Odt 4 Mg Tab.Rapdis) 4 mg TRANSLINGU Q8H PRN PRN Reason: Nausea and Vomiting Oxycodone HCl (Oxycodone Hcl Immed Release 5 Mg Tablet) 10 mg PO Q4H PRN PRN Reason: severe pain Last Admin: 03/22/25 07:17 Dose: 10 mg Documented By: SHANTELL Polyethylene Glycol (Polyethylene Glycol 3350 17 Gm Powd.Pack) 17 gm PO DAILY PRN PRN Reason: Constipation Senna (Sennosides 8.6 Mg Tablet) 17.2 mg PO BEDTIME [facility] Last Admin: 03/21/25 20:57 Dose: 17.2 mg Documented By: GABINO Sodium Chloride (0.9 % Sodium Chloride Flush 3 Ml Syringe) 3 ml IVFLUSH QSILFT [facility] Last Admin: 03/22/25 08:10 Dose: 3 ml Documented By: SHANTELL Sodium Chloride (0.9 % Sodium Chloride Flush 3 Ml Syringe) [facility] Last Admin: 03/22/25 08:10 Dose: Not Given Documented By: SHANTELL Non-Admin Reason: Duplicate Order Spironolactone (Spironolactone 25 Mg Tablet) 25 mg PO DAILY [facility]; Protocol Last Admin: 03/22/25 08:10 Dose: 25 mg Documented By: SHANTELL Tamsulosin HCl (Tamsulosin Hcl 0.4 Mg Capsule) 0.4 mg PO DAILY [facility] Last Admin: 03/22/25 08:10 Dose: 0.4 mg Documented By: SHANTELL Labs 03/22/25 05:27 03/22/25 05:27 Labs: Laboratory Results - last 24 hr 03/21/25 03/21/25 03/21/25 11:34 12:58 16:27 MCV MCH MCHC RDW Plt Count MPV Absolute Nucleated RBC Nucleated RBC % (auto) Anion Gap Estim Creat Clear Calc Estimated GFR POC Glucose 156 H 134 H 155 H Random Glucose Calcium 03/21/25 03/22/25 03/22/25 20:38 05:27 07:28 MCV 85.8 MCH 27.3 MCHC 31.9 RDW 13.7 Plt Count 452 H MPV 9.1 L Absolute Nucleated RBC 0.000 Nucleated RBC % (auto) 0.0 Anion Gap 12 Estim Creat Clear Calc 82.6 Estimated GFR 58 POC Glucose 270 H 340 H Random Glucose 379 H* Calcium 8.7 Assessment and Plan (1) Hyperglycemia: Status: Acute Plan 54F PMH DM, htn, hld, obesity, history of paraspinal abscess, copd, bph, presented with hyperglycmeia and right 1st toe ulcer right first toe osteomyelitis due to DM conitnue dapto, zosyn s/p amputation 03/21/25 no abx on discharge dm with hyperglycemia insulin Hypertension Amlodipine, labetalol, losartan, chlorthalidone Right renal mass Outpatient urology BPH Tamsulosin Morbid obesity Weight loss DVT prophylaxis with Lovenox Full code reason for continued hospitalization: monitor postop Quality Stroke Does the patient have a stroke diagnosis?: No Reason for No Anti-thrombotic by Day Two: N/A - Med Ordered VTE Prior VTE?: No VTE Risk Level:: Medical - moderate - high VTE Device Contraindication: Treatment Not Indicated VTE Drug Contraindication: N/A - Med Ordered
--- NOTE | 2025-03-22 10:24 | MHC.CM.PN ---
Patient s/p gr toe amp yesterday. Per MD rounds pt is not surgically clear to discharge. A PT eval has been ordered. DP Home with services. Pt may need assist with transport home at discharge.
[2025-03-22 11:12] LABS: Glucose, Whole Blood 342 mg/dL (60-115)
--- NOTE | 2025-03-22 12:10 | HO.WOUND ---
Wound Care: Deferred Wound care consulted for right great toe. Patient had right great toe amputation 03/21/25 with general surgery. Spoke with DAPHNIE Villeda with general surgery, no need for wound care consult at this time. will defer. please re-consult with further needs.
[2025-03-22 16:27] LABS: Glucose, Whole Blood 145 mg/dL (60-115)
[2025-03-22 21:00] LABS: Glucose, Whole Blood 344 mg/dL (60-115)
[2025-03-22] MEDS: Insulin Glargine,Hum.rec.anlog 100 UNIT/ML 10 ML VIAL 60 UNIT SUBCUT (21:53)
[2025-03-23] MEDS: oxyCODONE HCl Immed Release 5 MG TABLET 10 MG PO ×2 (01:42→07:54)
[2025-03-23 03:19] VITALS: BP 112/59; PULSE 57; RESP 20; TEMP 36; O2SAT 93
[2025-03-23] MEDS: 0.9 % Sodium Chloride Flush 3 ML SYRINGE IVFLUSH (07:23)
[2025-03-23 07:39] LABS: Glucose, Whole Blood 347 mg/dL (60-115)
[2025-03-23] MEDS: Nicotine 21 MG PATCH.TD24 TRANSDERMA (07:53)
[2025-03-23 07:56] VITALS: BP 146/82
[2025-03-23 07:57] VITALS: BP 137/66; PULSE 63; RESP 18; TEMP 36.1; O2SAT 94
[2025-03-23 07:58] VITALS: PULSE 60
--- NOTE | 2025-03-23 09:17 | P.PNGS_ITS ---
Subjective Subjective Date of Service: 03/23/25 Interval history: No new complaints Some pain on the amputation site Physical Exam 2 Vital Signs: Vital Signs: Last Vital Signs Temp 96.9 F 03/23/25 07:57 Pulse 60 03/23/25 07:58 Resp 18 03/23/25 07:57 BP 137/66 03/23/25 07:57 Pulse Ox 94 03/23/25 07:57 O2 Del Method Room Air 03/23/25 07:57 O2 Flow Rate 2 03/21/25 16:11 BMI result Body Mass Index 39.3 Const: General: comfortable and no acute distress Resp: Effort & Inspection: normal respiratory effort Extrem: Other: Amputation site on the right big toe clean, no pus, sutures intact, no bleeding, healing appropriately Objective Data Active Medications Acetaminophen (Acetaminophen 325 Mg Tablet) 650 mg PO Q6H PRN PRN Reason: Pain, Mild 1-3,fever,headache Last Admin: 03/20/25 09:34 Dose: 650 mg Documented By: SHANTELL Albuterol Sulfate (Albuterol Sulfate 90 Mcg 8 Gm Inhaler) 2 puff INHALE Q4H PRN PRN Reason: Wheezing Amlodipine Besylate (Amlodipine Besylate 5 Mg Tablet) 5 mg PO DAILY [facility]; Protocol Last Admin: 03/23/25 07:56 Dose: 5 mg Documented By: ALYSHA Atorvastatin Calcium (Atorvastatin Calcium 80 Mg Tablet) 80 mg PO BEDTIME [facility] Last Admin: 03/22/25 20:28 Dose: 80 mg Documented By: LEFEBZACH Baclofen (Baclofen 10 Mg Tablet) 10 mg PO TID [facility] Last Admin: 03/23/25 07:55 Dose: 10 mg Documented By: ALYSHA Calcium Carbonate (Calcium Carbonate 750 Mg Tab.Chew) 750 mg PO Q4H PRN PRN Reason: Heartburn Last Admin: 03/16/25 12:14 Dose: 750 mg Documented By: LUCMARY BETH Dextrose (Dextrose 50 % 25 Gm/50 Ml Syringe) 25 gm IVPUSH Q15M PRN; Protocol PRN Reason: per Hypoglycemia Standing Ord. Docusate Sodium (Docusate Sodium 100 Mg Capsule) 100 mg PO BID [facility] Last Admin: 03/23/25 08:08 Dose: Not Given Documented By: ALYSHA Non-Admin Reason: Patient Refused Empagliflozin (Empagliflozin 25 Mg Tablet) 25 mg PO DAILY [facility] Last Admin: 03/23/25 07:54 Dose: 25 mg Documented By: ALYSHA Enoxaparin Sodium (Enoxaparin Sodium 40 Mg/0.4 Ml Syringe) 40 mg SUBCUT Q24H [facility] Last Admin: 03/23/25 01:33 Dose: 40 mg Documented By: DELFINO Epinephrine (Epinephrine 1 Mg/Ml Vial) 0.3 mg IM DAILY PRN PRN Reason: Allergic Reaction Fluticasone Propionate (Fluticasone Propionate Nasal 16 Gm [place]) 1 spray NOSTRIL-B BID PRN PRN Reason: Allergy Symptoms Gabapentin (Gabapentin 400 Mg Capsule) 800 mg PO TID [facility] Last Admin: 03/23/25 07:54 Dose: 800 mg Documented By: ALYSHA Glucose (Glucose Gel 15 Gm Gel..Gram.) 15 gm PO Q15M PRN; Protocol PRN Reason: per Hypoglycemia Standing Ord. Guaifenesin (Guaifenesin 200 Mg/10 Ml 10 Ml Liquid) 10 ml PO Q4H PRN PRN Reason: Cough Hydralazine HCl (Hydralazine Hcl 50 Mg Tablet) 100 mg PO TID [facility]; Protocol Last Admin: 03/23/25 07:58 Dose: 100 mg Documented By: ALYSHA Hydrochlorothiazide (Hydrochlorothiazide 50 Mg Tablet) 50 mg PO DAILY [facility] Last Admin: 03/23/25 07:58 Dose: 50 mg Documented By: ALYSHA Hydromorphone HCl (Hydromorphone Hcl 1 Mg/Ml Syringe) 1 mg IVPUSH Q3H PRN; Protocol PRN Reason: Pain, Severe (Pain Scale 7-10) Last Admin: 03/23/25 07:20 Dose: 1 mg Documented By: ALYSHA Piperacillin Sod/Tazobactam (Sod 3.375 gm/ Sodium Chloride) 50 mls @ 100 mls/hr IV Q6H [facility] Last Infusion: 03/23/25 08:45 Dose: Infused Documented By: ALYSHA Daptomycin 700 mg/ Sodium (Chloride) 64 mls @ 87.141 mls/hr IV Q24H [facility] Last Infusion: 03/22/25 18:19 Dose: Infused Documented By: HO.SOFFAA Insulin Glargine (Insulin Glargine,Hum.Rec.Anlog 100 Unit/Ml 10 Ml Vial) 60 unit SUBCUT BEDTIME [facility] Last Admin: 03/22/25 21:53 Dose: 60 unit Documented By: DELFINO Insulin Human Lispro (Insulin Lispro 100 Unit/Ml 3 Ml Vial) 0 unit SUBCUT QIDACHS [facility]; Protocol Last Admin: 03/23/25 07:52 Dose: 12 unit Documented By: ALYSHA Labetalol HCl (Labetalol Hcl 100 Mg Tablet) 300 mg PO BID [facility] Last Admin: 03/23/25 07:58 Dose: 300 mg Documented By: ALYSHA Loratadine (Loratadine 10 Mg Tablet) 10 mg PO DAILY [facility] Last Admin: 03/23/25 07:56 Dose: 10 mg Documented By: ALYSHA Losartan Potassium (Losartan Potassium 50 Mg Tablet) 100 mg PO DAILY [facility]; Protocol Last Admin: 03/23/25 07:58 Dose: 100 mg Documented By: ALYSHA Magnesium Hydroxide (Milk Of Magnesia 30 Ml Oral.Susp) 30 ml PO DAILY PRN PRN Reason: Constipation Magnesium Oxide (Magnesium Oxide 400 Mg Tablet) 400 mg PO DAILY [facility] Last Admin: 03/23/25 07:54 Dose: 400 mg Documented By: ALYSHA Melatonin (Melatonin 3 Mg Tablet) 6 mg PO BEDTIME PRN PRN Reason: Insomnia Last Admin: 03/22/25 20:27 Dose: 6 mg Documented By: DELFINO Nicotine (Nicotine 21 Mg Patch.Td24) 21 mg TRANSDERMA DAILY [facility] Last Admin: 03/23/25 07:53 Dose: 21 mg Documented By: ALYSHA Nystatin/Triamcinolone Acetonide (Nystatin/Triamcinolone Cream 15 Gm Tube) 1 appl TOPICAL BID PRN PRN Reason: Rash Ondansetron HCl (Ondansetron Hcl 4 Mg/2 Ml Vial) 4 mg IVPUSH Q8H PRN PRN Reason: Nausea and Vomiting Last Admin: 03/16/25 17:01 Dose: 4 mg Documented By: DANE Ondansetron HCl (Ondansetron Odt 4 Mg Tab.Rapdis) 4 mg TRANSLINGU Q8H PRN PRN Reason: Nausea and Vomiting Oxycodone HCl (Oxycodone Hcl Immed Release 5 Mg Tablet) 10 mg PO Q4H PRN PRN Reason: severe pain Last Admin: 03/23/25 07:54 Dose: 10 mg Documented By: ALYSHA Polyethylene Glycol (Polyethylene Glycol 3350 17 Gm Powd.Pack) 17 gm PO DAILY PRN PRN Reason: Constipation Senna (Sennosides 8.6 Mg Tablet) 17.2 mg PO BEDTIME [facility] Last Admin: 03/22/25 20:30 Dose: 17.2 mg Documented By: DELFINO Sodium Chloride (0.9 % Sodium Chloride Flush 3 Ml Syringe) 3 ml IVFLUSH [facility] Last Admin: 03/23/25 07:23 Dose: 3 ml Documented By: ALYSHA Sodium Chloride (0.9 % Sodium Chloride Flush 3 Ml Syringe) 3 ml IVFLUSH [facility] Last Admin: 03/23/25 08:08 Dose: Not Given Documented By: ALYSHA Non-Admin Reason: Duplicate Order Spironolactone (Spironolactone 25 Mg Tablet) 25 mg PO DAILY [facility]; Protocol Last Admin: 03/23/25 07:57 Dose: 25 mg Documented By: ALYSHA Tamsulosin HCl (Tamsulosin Hcl 0.4 Mg Capsule) 0.4 mg PO DAILY [facility] Last Admin: 03/23/25 07:54 Dose: 0.4 mg Documented By: ALYSHA Labs 03/22/25 05:27 03/22/25 05:27 Labs: Laboratory Results - last 24 hr 03/22/25 03/22/25 03/22/25 11:09 16:23 20:55 POC Glucose 342 H 145 H 344 H 03/23/25 07:23 POC Glucose 347 H Procedures Date of Service Date of Service: 03/23/25 Progress Note: A&P Assessment and plan (1) Status post amputation of right great toe: Status: Acute Assessment and Plan: He is doing well Amputation site clean and healing appropriately I have changed his dressings continue daily wound care with dry dressings daily with gauze, Kerlix roll Best to use offloading shoe Okay to DC home as long as he is able to care for the wound Follow up with Dr. Maxwell Time Spent With Patient Time: Total time managing care of this patient today ____ minutes. Quality Stroke Does the patient have a stroke diagnosis?: No Reason for No Anti-thrombotic by Day Two: N/A - Med Ordered VTE Prior VTE?: No VTE Risk Level:: Medical - moderate - high VTE Device Contraindication: Treatment Not Indicated VTE Drug Contraindication: N/A - Med Ordered
--- NOTE | 2025-03-23 09:27 | W.MHC.F2F ---
Service Date Service Date: 03/23/25 Encounter Date of encounter: 03/23/25 Reasons for Services Signs and symptoms assessed: post op pain and dif. ambulating Reason for alf: wound care (xeroform or nonadherent dressing directly to amputation site, followed by fluffs, kerlix wrap and donaldo wrap. Change daily and as needed. ), medication management, medication treatment and teach disease management Homebound: Leaving the home is medically contraindicated at this time without the asist of a device and/or another person due th the listed conditions above and below. Reason homebound: unsteady gait / fall risk Certification: Based on the above findings, I certify that this patient is confined to the home and needs intermittent alf care, physical therapy and/or speech therapy, or continues to need occupational therapy. The patient is under my care, and I have initiated the establishment of the plan of care. The patient will be followed by a physician who will periodically review the plan of care. Time Spent With Patient Time: Total time managing care of this patient today ____ minutes.
--- NOTE | 2025-03-23 09:27 | PM.DS ---
DS: Providers Provider Date of Service: 03/23/25 Date of admission: 03/16/25 02:44 Date of discharge: 03/23/25 Primary care physician: Milena Shoemaker MD Consults: 03/16/25 02:55 Consult to General Surgery Routine Consulting Provider: [facility] Reason for consultation: OM R first digit and foot Has provider been notified: No 03/16/25 04:23 Consult to Infectious Diseases Routine Consulting Provider: [facility] Reason for consultation: R foot OM suspected, ulcer severe low back pain hx of L4/5 abscess 03/17/25 16:10 Consult to Urology Routine Consulting Provider: [facility] Reason for consultation: renal mass Has provider been notified: No DS: Diagnosis Discharge Diagnosis (1) Status post amputation of right great toe: Status: Acute DS: Summary Hospital Course Hospital Course: from initial hpi: 54 yo male with PMH IDDMII, HTN, HLD, 08/2023 L4/L5 1.2 cm abscess paraspinal area requiring transfer to [facility], left big toe amputation, chronic Foot R diabetic ulcer, Asthma, COPD/tobacco dependence, CKD, BPH was BIBA to ED for right great toe pain and signs of infection along with significant lower back pain. Patient currently denies any chest pain, shortness of breath, nausea or vomiting. Patient has reported experiencing chills with diaphoresis or the last 2 weeks, but denies fever. Patient was admitted back in November of 2024 for similar problems. Patient states he wants the right big toe amputated. Patient had been discharged on Augmentin and doxycycline right toe ulcer and followed [facility] which eventually discharged him. Then about 5 weeks ago patient noted increased swelling and redness involving the right great toe but did not seek treatment for this. Approximately 2-3 weeks ago patient decided to Mina the bottom of his right big toe and used a cuticle cutter which he rinsed in hot water and then cleansed with alcohol pads. The big toe area did not improve and now patient has swelling in the foot that radiates up through the mid [place]redondo area. Patient also has significant pain, at times is intolerable. 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 Patient is experiencing increased stressors overall caring for his son, obtaining his medications and does not have many family in the local area to depend on. Patient was started on vancomycin and Zosyn in the emergency department. Patient refused the vancomycin because this does cause pronounced vomiting. Vancomycin has been discontinued.Patient has had no symptoms since receiving his 1st dose Zosyn in the ED. In addition patient had an x-ray of the right foot which noted 1st digit distal tuft irregularity representing possible sequelae of infection or osteomyelitis. In addition severe degenerative changes at the navicular with the erosions and marginal osteophytes. Patient currently does not have leukocytosis and lactic acid level is normal sed rate and CRP are both elevated. Patient reports that the back pain is similar to the type of back pain he had when he was diagnosed with an L4-L5 abscess related to an infection in the left toe/foot which required amputation in the past. Patient does not meet criteria for sepsis on admission. Patient also noted to be experiencing hyperglycemia as he is a type 2 diabetic and has not had insulin for the last few days as he ran out. Patient was increasing his insulin on his own due to elevated levels which were likely were from his infection. Patient did not realize that infection can increase your blood sugar. Patient does not meet the criteria for DKA as his anion gap is closed and his CO2 is 28. PH on his blood gas was 7.45. Patient is started on regular insulin, IV fluids and we will continue Lantus and sliding scale insulin. Blood sugar has improved to 320 since treatment was started. Urinalysis noted for greater than 1000 glucose, trace ketones but negative for UTI. hospital course: Patient was admitted for right 1st toe osteomyelitis due to diabetes. He was treated with daptomycin and Zosyn. Was seen by General surgery who performed amputation on 03/21/2025 with presumed successful margins. No further antibiotics needed at discharge. He will continue to follow up with surgery as outpatient. For diabetes with hyperglycemia was continued on basal bolus insulin. For hypertension was continued on amlodipine, labetalol, losartan, chlorthalidone. For incidental finding of right renal mass he will follow up with Urology. For BPH was continued on tamsulosin. For morbid obesity weight loss is recommended. Time Attestation Discharge Coordination Time (in mins): 33 Quality: Safe Use of Opioids Does Pt have an Active Cancer Diagnosis on the Problem List?: No Quality: Stroke Does the patient have a stroke diagnosis?: No Physical Exam Vital Signs: Vital Signs: Last Vital Signs Temp 96.9 F 03/23/25 07:57 Pulse 60 03/23/25 07:58 Resp 18 03/23/25 07:57 BP 137/66 03/23/25 07:57 Pulse Ox 94 03/23/25 07:57 O2 Del Method Room Air 03/23/25 07:57 O2 Flow Rate 2 03/21/25 16:11 BMI result Body Mass Index 39.3 Const: General: comfortable and no acute distress Resp: Effort & Inspection: normal respiratory effort Extrem: Other: Amputation site on the right big toe clean, no pus, sutures intact, no bleeding, healing appropriately DS: Data Data Completed and Pending Completed studies during hospitalization [Text1]: Procedures Detachment at Left 1st Toe, Complete, Open Approach (08/15/23) Pending studies at discharge: Pending at discharge 03/21/25 15:01 Surgical [PTH] Routine Labs on day of discharge: Laboratory Results - last 24 hr 03/22/25 03/22/25 03/22/25 11:09 16:23 20:55 POC Glucose 342 H 145 H 344 H 03/23/25 07:23 POC Glucose 347 H Discharge Plan Discharge Anticipated Discharge Date/Time: 03/23/25 09:23 Patient Disposition: Home Health Service Discharge Diagnosis: dfu/om Referrals: Gallo Cuevas MD [Physician, Urology] - 1 Week Referral Note: renal mass Sergio Maxwell MD [Physician, General Surgery] - 1 Week Milena Shoemaker MD [Primary Care Provider, Medical] - 1 Week Discharge Medications: Continued atorvastatin 80 mg tablet 80 mg PO BEDTIME cetirizine 10 mg Tablet 10 mg PO DAILY chlorthalidone 50 mg tablet 50 mg PO DAILY magnesium oxide 400 mg (241.3 mg magnesium) tablet 400 mg PO DAILY tamsulosin 0.4 mg capsule 0.4 mg PO DAILY gabapentin 800 mg tablet 800 mg PO TID baclofen 10 mg tablet 10 mg PO TID epinephrine 0.3 mg/0.3 mL auto-injector 0.3 mg IM DIRECTED PRN (Reason: Allergic Reaction) albuterol sulfate [Ventolin HFA] 90 mcg/actuation HFA aerosol inhaler 2 puff inhalation Q4H PRN (Reason: Wheezing) losartan 100 mg tablet 100 mg PO DAILY fluticasone propionate 50 mcg/actuation spray,suspension 1 spray intranasal BID PRN (Reason: Allergy Symptoms) Jardiance 25 mg tablet 25 mg PO DAILY acetaminophen 650 mg tablet extended release 650 mg PO Q8H PRN (Reason: pain) spironolactone 25 mg tablet 25 mg PO DAILY polyethylene glycol 3350 17 gram powder in packet 17 g PO DAILY PRN (Reason: Constipation) oxycodone 5 mg tablet 5 mg PO Q6H PRN (Reason: severe pain) Qty: 20 0RF insulin aspart U-100 [Novolog U-100 Insulin aspart] 100 unit/mL Solution 10 unit SUBCUT TIDAC clotrimazole-betamethasone 1-0.05 % cream 1 appl topical BID PRN (Reason: Rash) docusate sodium 100 mg Capsule 100 mg PO BID 90 Days Qty: 180 0RF labetalol 300 mg tablet 300 mg PO BID hydralazine 100 mg tablet 100 mg PO TID ondansetron HCl 4 mg tablet 4 mg PO Q8H PRN (Reason: Nausea And Vomiting) amlodipine 5 mg tablet 5 mg PO DAILY Qty: 90 1RF Discharge Orders: Discharge Order (Routine); Ordered 03/23/25 Ordered By: Cristino Lake Diet: Diabetic diet Activity on Discharge: As tolerated Stand Alone Forms: Patient Portal Discharge page Print Language: Belarusian Activity Restrictions/Additional Instructions: Wound care: xeroform or nonadherent dressing directly to amputation site, followed by fluffs, kerlix wrap and donaldo wrap. Change daily and as needed. Care Plan Goals: recovery Health Concerns: renal mass, toe amp Plan of Treatment: follow up with urology for renal mass Assessment: see above Patient Instructions: Toe Amputation (DC)
--- NOTE | 2025-03-23 10:12 | MHC.CM.PN ---
Patient medically cleared for dc home w/ new [facility] for SN/wound care. Dressings are ordered to be changed daily. He is aware [facility] will not come daily and is able to change his dressing independently on the days [facility] is unavailable. He will be sent home w/ supplies via [employer] transport.
[2025-03-23 10:15] VITALS: BP 154/73; PULSE 65; RESP 20; TEMP 36; O2SAT 95
--- NOTE | 2025-04-25 23:05 | P.CDIM_ITS ---
PROVIDER RESPONSE TEXT: To clarify, the appropriate diagnosis supported by the clinical indicators: I and D right great toe: subcutaneous QUERY TEXT: PHYSICIAN'S DOCUMENTATION REQUEST Date of Query: 04/11/2025 09:18 AM EDT Patient Name: Gallo Saini Admit Date: 03/16/2025 Dear Darshana Fields MD, RETROSPECTIVE QUERY A review of the medical record indicates additional documentation may be needed. Please review below and update the documentation accordingly. Clinical Indicators: . Surgical note 03/17/25 - Abscess I&D - Right foot, incised with #11 blade. Male with infected right great toe with underlying osteomyelitis looking a little worse but today after debridement areas improved. Plan to continue with dressings to the area and continue with IV antibiotics. Follow up culture. Could you provide, in the Progress Notes, further clarification regarding the Depth of the documented I&D procedure on 03/17/25: I and D right great toe skin, subcutaneous, bursa, fascia, muscle etc. Other specified Please also address the Depth of debridement, and Size and appearance of the wound as able Other (explain) Clinically unable to determine (explain) Thank you, Jazmine Mensah, CCS, CDIS Use of terms such as suspected, likely, concern for, or probable (associated with a specific diagnosis that is being evaluated, monitored, or treated as if it exists) are acceptable and can be coded in the inpatient setting, when documented at the time of discharge. Please use your independent medical judgment in providing your response. THIS QUERY IS PART OF THE PERMANENT MEDICAL RECORD
== END 2025-03-23 10:37 | disposition home health service (06) | DRG 617 ==
LOC: HO.ED 02:11 → HO.EDOVER 02:48 → HO.S3 07:42
PROVIDERS: Internal Medicine; Physician Assistant Medical; Surgery; Admitting Provider Nurse Practitioner Family; Emergency Provider Emergency Medicine Emergency Medical Services; PCP Family Medicine; Visit Provider Internal Medicine
PROC: 0Y6P0Z0 Detachment at Right 1st Toe, Complete, Open Approach (ICD-10-PCS; principal; 2025-03-21 14:10)
DX: E11.69 Type 2 diabetes mellitus with other specified complication (principal); L97.518 Non-pressure chronic ulcer of other part of right foot with other specified severity; M86.171 Other acute osteomyelitis, right ankle and foot; E11.621 Type 2 diabetes mellitus with foot ulcer; F17.210 Nicotine dependence, cigarettes, uncomplicated; E11.40 Type 2 diabetes mellitus with diabetic neuropathy, unspecified; E11.628 Type 2 diabetes mellitus with other skin complications; L03.031 Cellulitis of right toe; E11.65 Type 2 diabetes mellitus with hyperglycemia; T38.3X6A Underdosing of insulin and oral hypoglycemic [antidiabetic] drugs, initial encounter; J44.9 Chronic obstructive pulmonary disease, unspecified; E78.5 Hyperlipidemia, unspecified; N40.0 Benign prostatic hyperplasia without lower urinary tract symptoms; N28.89 Other specified disorders of kidney and ureter; I12.9 Hypertensive chronic kidney disease with stage 1 through stage 4 chronic kidney disease, or unspecified chronic kidney disease; N18.9 Chronic kidney disease, unspecified; M54.59 Other low back pain; E11.22 Type 2 diabetes mellitus with diabetic chronic kidney disease; Z71.6 Tobacco abuse counseling; E66.01 Morbid (severe) obesity due to excess calories; Z68.39 Body mass index [BMI] 39.0-39.9, adult; Z71.3 Dietary counseling and surveillance; Z79.4 Long term (current) use of insulin; Z79.899 Other long term (current) drug therapy
CPT/HCPCS: 36415; 72158; 73630; 73720; 74176; 80048; 80053; 81001; 82550; 82803; 82947; 83036; 83605; 83735; 83880; 84443; 85014; 85018; 85025; 85027; 85652; 86140; 87040; 87493; 87507; 88305; 88311; 93971; 97161; 99285; A9585; J0131; J0330; J0665; J0878; J1100; J1171; J1650; J1885; J2003; J2004; J2020; J2250; J2405; J2543; J2704; J3010

== ENCOUNTER → 2025-03-16 00:42 | Outpatient (BNV) | payer MEDICARE, MEDICAID, SELFPAY | PROVIDERS: Admitting Provider Nurse Practitioner Family; Emergency Provider Emergency Medicine Emergency Medical Services; PCP Family Medicine; Visit Provider Radiology Diagnostic Radiology | DX: M54.50 Low back pain, unspecified (principal); M19.071 Primary osteoarthritis, right ankle and foot | CPT/HCPCS: 72158; 73720 ==

== ENCOUNTER → 2025-03-16 02:44 | Outpatient (BNV) | payer MEDICARE, MEDICAID, SELFPAY | PROVIDERS: Admitting Provider Nurse Practitioner Family; Emergency Provider Emergency Medicine Emergency Medical Services; PCP Family Medicine; Visit Provider Urology | DX: N28.9 Disorder of kidney and ureter, unspecified (principal) | CPT/HCPCS: 99222 ==

== ENCOUNTER → 2025-03-16 02:44 | Outpatient (BNV) | payer MEDICARE, MEDICAID, SELFPAY | PROVIDERS: Admitting Provider Nurse Practitioner Family; Emergency Provider Emergency Medicine Emergency Medical Services; PCP Family Medicine; Visit Provider Surgery | DX: Z89.411 Acquired absence of right great toe (principal) | CPT/HCPCS: 10060; 28810; 99024; 99222; 99232 ==

== ENCOUNTER → 2025-03-16 02:44 | Outpatient (BNV) | payer MEDICARE, MEDICAID, SELFPAY | PROVIDERS: Admitting Provider Nurse Practitioner Family; Emergency Provider Emergency Medicine Emergency Medical Services; PCP Family Medicine; Visit Provider Internal Medicine | DX: E11.621 Type 2 diabetes mellitus with foot ulcer (principal); L97.519 Non-pressure chronic ulcer of other part of right foot with unspecified severity; N18.9 Chronic kidney disease, unspecified | CPT/HCPCS: 99222 ==

== ENCOUNTER → 2025-03-16 02:44 | Outpatient (BNV) | payer MEDICARE, MEDICAID, SELFPAY | PROVIDERS: Admitting Provider Nurse Practitioner Family; Emergency Provider Emergency Medicine Emergency Medical Services; PCP Family Medicine; Visit Provider Nurse Practitioner Family | DX: Z89.411 Acquired absence of right great toe (principal) | CPT/HCPCS: 99223; 99231; 99232; 99239; 99499; G0180 ==

== ENCOUNTER 2025-05-15 14:33 | Emergency (ER) | payer MEDICARE, MEDICAID, SELFPAY ==
--- NOTE | ~2025-05-15 | XR_ITS ---
EXAMINATION: XR CHEST CLINICAL INFORMATION: chest pain and pressure COMPARISON: November 22, 2024 TECHNIQUE: 2 views of the chest were obtained. FINDINGS: No significant abnormality is noted involving the heart, lungs, mediastinum, bony thorax or soft tissues. XR/XR chest 2V IMPRESSION: No acute disease Electronically signed by: Vinny Granado MD 05/15/2025 03:48 PM [facility] [place] [place]
--- NOTE | 2025-05-15 14:40 | ECG_ITS ---
Test Reason : CP Blood Pressure : */* mmHG Vent. Rate : 69 BPM Atrial Rate : 69 BPM P-R Int : 162 ms QRS Dur : 88 ms QT Int : 408 ms P-R-T Axes : 52 41 58 degrees QTcB Int : 437 ms Normal sinus rhythm Normal ECG When compared with ECG of 22-Nov-2024 10:32, No significant change was found Referred By: Lorna Vega Electronically Signed By: BHASKAR MENDEZ
--- NOTE | 2025-05-15 14:41 | ED.GENADULT ---
HPI - General Adult General Chief complaint: Chest Pain Stated complaint: chest pressure, difficulty breathing Time Seen by Provider: 05/15/25 14:40 Source: patient, EMS, RN notes reviewed and old records reviewed Mode of arrival: EMS Limitations: no limitations History of Present Illness ED Provider: Silvia HPI narrative: Patient is a 54-year-old male with history of CKD, DM, HTN, asthma, MAURI, osteomyelitis of the spine, epidural abscess presenting to the ED with complaint of chest pressure and feeling as though he is unable to fully take a deep breath. He states that he had to go to court for his son this morning and this caused his to feel anxious/upset. States that as he was entering the court house, his blood glucose was 60 and he felt symptomatic with this blood sugar. He drank a, Angelo auto and ate a doughnut and his symptoms improved but his blood sugar did not go up quickly. He also states that he did not take his regularly prescribed oxycodone and gabapentin this morning because he was going to court. Reports has has increased nasal congestion recently as well. Reports recent toe amputation to right foot, visit nurse assessed yesterday and stated that the toe looked well appearing but patient had temp of 99. MD complaint: chest pressure Related Data Home Medications ?Medication ?Instructions ?Recorded ?Confirmed albuterol sulfate 90 mcg/actuation 2 puff inhalation Q4H PRN Wheezing 08/15/23 03/16/25 aerosol inhaler (Ventolin HFA) atorvastatin 80 mg tablet 80 mg PO BEDTIME 08/15/23 03/16/25 baclofen 10 mg tablet 10 mg PO TID 08/15/23 03/16/25 cetirizine 10 mg tablet 10 mg PO DAILY 08/15/23 03/16/25 chlorthalidone 50 mg tablet 50 mg PO DAILY 08/15/23 03/16/25 empagliflozin 25 mg tablet 25 mg PO DAILY 08/15/23 03/16/25 (Jardiance) epinephrine 0.3 mg/0.3 mL 0.3 mg IM DIRECTED PRN Allergic 08/15/23 03/16/25 injection, auto-injector Reaction fluticasone propionate 50 1 spray intranasal BID PRN Allergy 08/15/23 03/16/25 mcg/actuation nasal Symptoms spray,suspension gabapentin 800 mg tablet 800 mg PO TID 08/15/23 03/16/25 losartan 100 mg tablet 100 mg PO DAILY 08/15/23 03/16/25 magnesium oxide 400 mg (241.3 mg 400 mg PO DAILY 08/15/23 03/16/25 magnesium) tablet tamsulosin 0.4 mg capsule 0.4 mg PO DAILY 08/15/23 03/16/25 acetaminophen 650 mg 650 mg PO Q8H PRN pain 01/02/24 03/16/25 tablet,extended release hydralazine 100 mg tablet 100 mg PO TID 06/25/24 03/16/25 labetalol 300 mg tablet 300 mg PO BID 06/25/24 03/16/25 ondansetron HCl 4 mg tablet 4 mg PO Q8H PRN Nausea And Vomiting 06/25/24 03/16/25 clotrimazole-betamethasone 1 1 appl topical BID PRN Rash 11/22/24 03/16/25 %-0.05 % topical cream insulin aspart U-100 100 unit/mL 10 unit subcut TIDAC 11/22/24 03/16/25 subcutaneous solution (Novolog U-100 Insulin aspart) polyethylene glycol 3350 17 gram 17 g PO DAILY PRN Constipation 03/16/25 03/16/25 oral powder packet spironolactone 25 mg tablet 25 mg PO DAILY 03/16/25 03/16/25 Previous Rx's ?Medication ?Instructions ?Recorded amlodipine 5 mg tablet 5 mg PO DAILY #90 tabs 06/25/24 docusate sodium 100 mg capsule 100 mg PO BID 90 days #180 caps 11/25/24 oxycodone 5 mg tablet 5 mg PO Q6H PRN severe pain #20 03/23/25 tabs Allergies Allergy/AdvReac Type Severity Reaction Status Date / Time coconut Allergy Rash Verified 05/15/25 14:49 naproxen (From NAPROSYN) AdvReac Severe STOMACH Verified 05/15/25 14:49 UPSET cefepime AdvReac Intermediate Rash Verified 05/15/25 14:49 lisinopril (LISINOPRIL) AdvReac Mild COUGH Verified 05/15/25 14:49 vancomycin AdvReac Vomiting Verified 05/15/25 14:49 SEAFOOD Allergy Unknown ANAPHYLAXIS Uncoded 03/16/25 00:24 Review of Systems Review of Systems: as per hpi Yes all other systems are reviewed and are negative Constitutional: Constitutional: Reports as per HPI [facility] Past Medical History Medical History (Updated 05/15/25 @ 16:29 by Lorna Vega NP) Cigarette smoker Marijuana smoker Hx of renal calculi Amputation of left great toe 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 lumbar spine Amputation toe (~08/2023) Ulcer of great toe Asthma Severe obesity Mood disorder MAURI (obstructive sleep apnea) Type 2 diabetes mellitus HLD (hyperlipidemia) HTN (hypertension) Surgical History (Updated 03/31/25 @ 00:00 by Giselle Owen) History of prostate surgery Hx of amputation Hx of esophagogastroduodenoscopy Hx of colonoscopy Social History Social History Household Members: Children Housing: Apartment Do you presently have visiting nurse or other home services: No Alcohol intake: never Comment: Counts correct Patient Tobacco Use Status: Current everyday Tobacco user Tobacco use type: Cigarette Cigarette Packs Per Day: 20 Cigarettes Per Day: 400.0 Smoked in Last 30 Days: Yes e-Cigarette/Vaping Use: Never Used Second Hand Smoke Exposure: No Use of substances other than those prescribed or required for medical reasons: Yes Substance Use Type: Marijuana Advance Directives: Yes Advance Directives on File: Yes Advance Directives Date on File: 08/30/23 Do you have a plan to hurt others: No Plan service: No Physical Exam ED Vital Signs: Vital Signs - 24 hr 05/15/25 14:48 05/15/25 15:33 Temperature 98 F Pulse Rate 68 66 Respiratory Rate 18 20 Blood Pressure 143/71 H Pulse Oximetry 97 Oxygen Delivery Method Room Air Room Air BMI result Body Mass Index 38.8 Vital signs have been reviewed and appear to be correct. Blood pressure normal. Heart rate normal. Respiratory rate normal. Temperature normal. Oxygen saturation normal. Const General: cooperative, healthy appearing and no acute distress Orientation/consciousness: oriented to person, oriented to place, oriented to time and patient oriented x3 Limitations: no limitations HENMT Head: Yes normocephalic and Yes atraumatic Ears: external ears normal General nose exam: Normal external nose present Face and sinus: Yes face symmetric Mouth: oropharynx normal and moist mucous membranes Throat: Yes uvula midline Eyes Pupils: Equal, round and reactive pupils present Neck Neck: Yes normal visual inspection and Yes supple Resp Effort & Inspection: normal respiratory effort and able to speak in complete sentences Auscultation: clear to auscultation bilaterally Cardio Rate: regular rate Rhythm: regular rhythm Heart sounds: S1 normal heart sound present and S2 normal heart sound present GI Palpation (GI): Soft to palpation and nontender Auscultation: normoactive bowel sounds General: Yes no CVA tenderness Back/Spine/Pelvis Back: no CVA tenderness Skin General skin exam: elasticity normal and turgor normal Neuro General: oriented to person, oriented to place, oriented to time, patient oriented x3, moves all extremities, no focal motor deficits and CN's II-XI intact bilaterally Cranial nerves: Yes Equal, round and reactive pupils present Cognition (Neuro): normal cognition Extrem Other: General: Yes full ROM, Yes no pedal edema and Yes no calf tenderness Right lower extremity: foot (recent great toe amputation, appears to be healing well, see photo) Left lower extremity: foot (prior great toe amputation) Psych Mental Status: mental status grossly normal Affect: normal affect Thought process: Normal thought process present Course Reevaluation(s) Reevaluation #1: Patient received in sign-out at change of shift pending repeat troponin due to presentation of chest pain. The patient's repeat troponin is still undetectable, therefore flat and he rules out for ACS in conjunction with a nonischemic EKG. The patient is stable for discharge at this time Time: 17:08 Medications Administered Discontinued Medications Generic Name Dose Route Start Last Admin Trade Name Candidoq PRN Reason Stop Dose Admin Gabapentin 800 mg 05/15/25 15:39 05/15/25 15:52 Gabapentin 400 Mg Capsule PO 05/15/25 15:40 800 mg ONCE ONE Administration Oxycodone HCl 5 mg 05/15/25 15:39 05/15/25 15:53 Oxycodone Hcl Immed Release 5 Mg Tablet PO 05/15/25 15:40 5 mg ONCE ONE Administration Medical Decision Making Medical Decision Making MDM Narrative: Patient is a 54-year-old male with history of CKD, DM, HTN, asthma, MAURI, osteomyelitis of the spine, epidural abscess presenting to the ED with complaint of chest pressure and feeling as though he is unable to fully take a deep breath. On exam patient is awake, A+Ox3, VS WNL, afebrile, normal neurological exam without focal deficits, physical exam findings as above. Given reported symptoms and physical exam findings, initial differential includes but is not limited to ACS, musculoskeletal pain, GERD/gastritis, anxiety, electrolyte abnormality. Labs notable for chronic stable anemia, no leukocytosis, mildly elevated alk-phos, negative troponin. Patient denies abdominal pain. EKG shows normal sinus rhythm. X-ray chest notable for no evidence of pneumonia, pneumothorax. My interpretation is in agreement with the radiologist's interpretation. Patient signed out to DAPHNIE Jensen pending repeat troponin, then likely discharge home. Differential Diagnosis Differential Diagnoses: The differential diagnosis associated with the presentation includes as per [facility] Admission/Observation Consideration of admission/observation: Escalation of care including admission/observation considered Patient would have been admitted to the hospital and transferred to appropriate facility had their clinical presentation warranted hospital admission. Lab Data [facility] Lab Attestation statement: I reviewed the patient's lab results. As per [facility] 05/15/25 15:02 05/15/25 15:02 Labs: Lab Results 05/15/25 05/15/25 Range/Units 15:02 16:21 WBC 8.9 (4.8-10.8) X10*3/uL RBC 4.50 L (4.60-5.80) X10*6/uL Hgb 12.4 L (14.0-18.0) g/dl Hct 37.5 L (42.0-52.0) % MCV 83.3 (80.0-98.0) fL MCH 27.6 (27.0-33.0) pg MCHC 33.1 (31.0-36.0) g/dl RDW 14.6 (11.0-16.0) % Plt Count 271 D (160-400) X10*3/uL MPV 9.3 L (9.4-12.4) fL Immature Gran % (Auto) 0.4 (0.0-0.4) % Neut % (Auto) 58.8 (45-73) % Lymph % (Auto) 26.1 (20-40) % [place] % (Auto) 9.8 (2-11) % Eos % (Auto) 3.8 (0-4) % Baso % (Auto) 1.1 (0-2) % Lymph # (Auto) 2.3 (1.2-4.9) X10*3/uL [place] # (Auto) 0.9 (0.1-1.2) X10*3/uL Eos # (Auto) 0.3 (0.0-0.4) X10*3/uL Baso # (Auto) 0.1 (0.0-0.2) X10*3/uL Abs Immat Gran (auto) 0.04 H (0.00-0.03) X10*3/uL Absolute Neuts (auto) 5.2 (2.0-8.3) x10*3/uL Absolute Nucleated RBC 0.000 (0.0-0.012) X10*3/uL Nucleated RBC % (auto) 0.0 (0.0-0.2) /100WBC PT 11.5 (11.2-13.5) SEC INR 0.9 (0.9-1.1) Sodium 138 (135-145) mmol/L Potassium 3.7 D (3.3-5.1) mmol/L Chloride 107 (96-108) mmol/L Carbon Dioxide 24 (22-29) mmol/L Anion Gap 11 L (12-20) BUN 21 H (9-16) mg/dL Creatinine 0.83 (0.5-1.4) mg/dL Estim Creat Clear Calc 128.5 Estimated GFR > 60 Random Glucose 180 H (60-115) mg/dL Calcium 9.4 D (8.4-10.2) mg/dL Magnesium 1.7 (1.6-2.6) mg/dL Total Bilirubin 0.6 (0.0-1.0) mg/dL AST 33 (5-37) U/L ALT 36 (0-40) U/L Alkaline Phosphatase 155 H (39-117) U/L Troponin I High Sens < 2.7 < 2.7 (<3.5-35.0) ng/L NT-Pro-B Natriuret Pep 157.1 (<300) pg/mL Total Protein 7.1 (6.5-8.0) g/dL Albumin 4.0 (3.5-5.0) g/dL Influenza Type A (PCR) NEGATIVE (Negative) Influenza Type B (PCR) NEGATIVE (Negative) RSV RNA Qual (PCR) NEGATIVE (Negative) SARS-CoV-2 RNA (RT-PCR) NEGATIVE (Negative) Independent Interpretation I performed an independent interpretation of an: EKG (Normal sinus rhythm, rate 69 beats per minute, normal HI interval and QTC) and Plain X-Ray Interpretation: Chest x-ray is without evidence of pneumonia, pneumothorax. Radiology Impression Discussion of test interpretation with radiology: I have reviewed the radiologist's reading. Radiologist Impression: XR/XR chest 2V IMPRESSION: No acute disease External Record Review External record reviewed: Inpatient record, Office record and Outpatient record Discharge Plan Discharge Clinical Impression: Atypical chest pain Patient Disposition: Home, Self-Care Instructions: Chest Pain (DC) Additional Instructions: You were evaluated in the emergency department today for chest pain. Your evaluation has shown no signs of medical conditions requiring emergent intervention at this time, however we recommend that you follow-up with your primary care physician or your maintenance mechanic helper for further testing as an outpatient. Please schedule an appointment for follow-up with your primary care physician this week. Return to the emergency department if you experience worsening or uncontrolled chest pain, shortness of breath, lightheadedness, feeling faint, loss of consciousness, nausea, vomiting, or any other concerning symptoms. Prescriptions: No Action atorvastatin 80 mg tablet 80 mg PO BEDTIME cetirizine 10 mg Tablet 10 mg PO DAILY chlorthalidone 50 mg tablet 50 mg PO DAILY magnesium oxide 400 mg (241.3 mg magnesium) tablet 400 mg PO DAILY tamsulosin 0.4 mg capsule 0.4 mg PO DAILY gabapentin 800 mg tablet 800 mg PO TID baclofen 10 mg tablet 10 mg PO TID epinephrine 0.3 mg/0.3 mL auto-injector 0.3 mg IM DIRECTED PRN (Reason: Allergic Reaction) albuterol sulfate [Ventolin HFA] 90 mcg/actuation HFA aerosol inhaler 2 puff inhalation Q4H PRN (Reason: Wheezing) losartan 100 mg tablet 100 mg PO DAILY fluticasone propionate 50 mcg/actuation spray,suspension 1 spray intranasal BID PRN (Reason: Allergy Symptoms) Jardiance 25 mg tablet 25 mg PO DAILY acetaminophen 650 mg tablet extended release 650 mg PO Q8H PRN (Reason: pain) spironolactone 25 mg tablet 25 mg PO DAILY polyethylene glycol 3350 17 gram powder in packet 17 g PO DAILY PRN (Reason: Constipation) oxycodone 5 mg tablet 5 mg PO Q6H PRN (Reason: severe pain) Qty: 20 0RF insulin aspart U-100 [Novolog U-100 Insulin aspart] 100 unit/mL Solution 10 unit SUBCUT TIDAC clotrimazole-betamethasone 1-0.05 % cream 1 appl topical BID PRN (Reason: Rash) docusate sodium 100 mg Capsule 100 mg PO BID 90 Days Qty: 180 0RF labetalol 300 mg tablet 300 mg PO BID hydralazine 100 mg tablet 100 mg PO TID ondansetron HCl 4 mg tablet 4 mg PO Q8H PRN (Reason: Nausea And Vomiting) amlodipine 5 mg tablet 5 mg PO DAILY Qty: 90 1RF Print Language: Panamanian
[2025-05-15 14:45] VITALS: BP 128/86; PULSE 75; O2SAT 99
[2025-05-15 14:48] VITALS: BP 143/71; PULSE 68; RESP 18; TEMP 36.6; O2SAT 97; BMI 38.8
[2025-05-15 15:10] LABS: MANUAL DIFF FLAG NO
[2025-05-15 15:22] LABS: Hematocrit 37.5 % (42.0-52.0); Hemoglobin 12.4 g/dl (14.0-18.0); Imm Gran Abs Auto 0.04 X10*3/uL (0.00-0.03); Imm Gran Pct Auto 0.4 % (0.0-0.4); Lymphocytes Absolute Auto 2.3 X10*3/uL (1.2-4.9); Mean Corpuscular HGB Conc 33.1 g/dl (31.0-36.0); Mean Corpuscular Hemoglobin 27.6 pg (27.0-33.0); Mean Corpuscular Volume 83.3 fL (80.0-98.0); NRBC Abs Auto 0.000 X10*3/uL (0.0-0.012); NRBC Pct Auto 0.0 /100WBC (0.0-0.2); Platelet Count 271 X10*3/uL (160-400); Red Blood Count 4.50 X10*6/uL (4.60-5.80); White Blood Count 8.9 X10*3/uL (4.8-10.8)
[2025-05-15 15:23] LABS: INTERNATIONAL NORM RATIO 0.9 (0.9-1.1); Prothrombin Time 11.5 SEC (11.2-13.5)
[2025-05-15 15:30] LABS: Alanine Aminotransferase 36 U/L (0-40); Albumin Level 4.0 g/dL (3.5-5.0); Alkaline Phosphatase 155 U/L (39-117); Anion Gap 11 (12-20); Aspartate Amino Transferase 33 U/L (5-37); Blood Urea Nitrogen 21 mg/dL (9-16); Calcium 9.4 mg/dL (8.4-10.2); Carbon Dioxide 24 mmol/L (22-29); Chloride 107 mmol/L (96-108); Creatinine Clr Calc Pharmacy 128.5; Estimated Glomerular Filt Rate > 60; Magnesium 1.7 mg/dL (1.6-2.6); Potassium 3.7 mmol/L (3.3-5.1); Sodium 138 mmol/L (135-145); Total Protein 7.1 g/dL (6.5-8.0)
[2025-05-15 15:33] VITALS: PULSE 66; RESP 20
[2025-05-15 15:40] LABS: Troponin-I High Sensitivity < 2.7 ng/L (<3.5-35.0)
[2025-05-15 15:50] LABS: Resp Syncy Virus RNA Qual PCR NEGATIVE (Negative); SARS COV2 PCR INHOUSE NEGATIVE (Negative)
[2025-05-15] MEDS: oxyCODONE HCl Immed Release 5 MG TABLET PO (15:53)
[2025-05-15 16:50] LABS: Troponin-I High Sensitivity < 2.7 ng/L (<3.5-35.0)
[2025-05-15 16:57] LABS: NT Pro B Type Natriuretic Pept 157.1 pg/mL (<300)
[2025-05-15 17:58] VITALS: BP 160/84; PULSE 65; RESP 18; TEMP -17.7; TEMP 0; O2SAT 98
--- OUTSIDE RECORDS SUMMARY | 2025-05-15 18:16 | XMS_ITS | Encounter Summary ---
Author Organization [employer] Address [address] [place] [address] Care Team Providers Care Acid Concentrator Name Role Phone Milena Shoemaker MD Primary Care Provider [phone] Dana Damon PharmD Unavailable [phone] Dana Damon PharmD Unavailable [phone] Reason for Visit * Reason Onset Date Comments Med Refill 03/15/2025 Encounter Details Date Type Department Care Team ([facility] st Contact Info) Description 03/15/2025 Refill [facility] MED & PEDS [address] [place] [address] Eri Leo MD [address] [place], [place] [phone] Asthma, unspecified asthma severity, unspecified whether complicated, [...] Care Team (Late st Contact Info) Description 05/24/2025 10:30 AM EST Medication Management [facility] [address] [place] [address] Dana Damon, ChadD [address] [place] [address] 05/27/2025 10:00 AM EST Office Visit [facility] [address] [place] [address] Milena Shoemaker MD [address] [place] [address] 06/05/2025 9:30 AM EST Clinical Support [facility] [address] [place] [address] Luma Dalton, LUIS [address] [place] [address] documented as of this encounter Visit Diagnoses Diagnosis Asthma, unspecified asthma severity, unspecified whether complicated, unspecified whether persistent documented in this encounter Additional Health Concerns Assessment Noted Time PHQ-9 Depression Total Score: 4 01/18/20 12:43 PM EDT documented as of this encounter Care Teams Acid Concentrator Relationship Specialty Start Date End Date Milena Shoemaker MD [address] [place] [address] PCP - General Family Medicine 08/12/22 Dana Damon PharmD [address] [place] [address] Pharmacist Pharmacy 04/15/25 Dana Damon PharmD [address] [place] [address] Pharmacist Pharmacy 04/15/25 04/15/25 Maria G Sellers CNP Psychiatrist 02/23/23 [facility] 03/24/25 documented as of this encounter
--- OUTSIDE RECORDS SUMMARY | 2025-05-15 18:16 | XMS_ITS | Encounter Summary ---
Author Organization [employer] Address [address] [place] [address] Care Team Providers Care Location Man Name Role Phone Milena Shoemaker MD Primary Care Provider [phone] Dana Damon PharmD Unavailable [phone] Dana Damon PharmD Unavailable [phone] Reason for Referral * Consultation (STAT) - Closed Specialty Diagnoses / Procedures Referred By Contac t Referred To Contact Diagnoses Septic arthritis of lumbar spine ([facility]/HCC) Milena Shoemaker MD [address] [place], [place] Phone: tel: fax: Myla Garza MD [address] [place] [address] Phone: tel: fax: Referral ID Status Reason Start Date Expiration Date V isits Requested Visits Authorized [id number] Closed Specialty Services Required 09/13/2023 09/12/2024 1 1 Reason for Visit * Reason Onset Date Comments Call Back Request 09/12/2023 Encounter Details Date Type Department Care Team (Late st Contact Info) Description 09/12/2023 Telephone [facility] MEDICINE [address] [place] [address] Milena Shoemaker MD [address] [place] [address] Call Back Request Social History Tobacco Use [...] EDT Tc to Sanna, she stated that [facility] accepted him and [facility] will handle his IV antibiotics. There is no ID referral available as no one would take the pt as stated by Sanna. Sanna is the nurse caregivers homecare so is the de facto social media marketer for the pt at the hospital. Phone number for Dr. Zimmerman is [phone]. If unable to get a hold of this provider, the other provider working with Dr. Zimmerman is Dr. Beltran, number [phone]. * Telephone Encounter - Milena Shoemaker MD - 09/13/2023 2:52 PM EDT Please request Sanna to provide Dr. Zimmerman phone, he also needs a VNA agency to be setup before he goes home. Please get the social media marketer involved as this needs coordination of services [...] PM EDT Tc from Sanna at the [facility] requesting a call back to get orders for the patient to continue at home IV antibiotics if not the patient would have stay in the hospital to finish the process please call Sanna at [phone] Ext. [phone] documented in this encounter Plan of Treatment Upcoming Encounters Date Type Department Care Team (Late st Contact Info) Description 05/24/2025 10:30 AM EST Medication Management [facility] MED & PEDS [address] [place] [address] Dana Damon, PharmD [address] [place] [address] 05/27/2025 10:00 AM EST Office Visit [facility] MED [facility] PEDS [address] [place] [address] Milena Shoemaker MD [address] [place] [address] 06/05/2025 9:30 AM EST Clinical Support [facility] MED [facility] PEDS [address] [place], [place] [phone] Luma Dalton, LUIS [address] [place], [place] Scheduled Referrals Name Type Priority Associated Diagnoses [...] documented as of this encounter Care Teams Location Man Relationship Specialty Start Date End Date Milena Shoemaker MD [address] [place] [address] PCP - General Family Medicine 08/12/22 Dana Damon, Jovita [address] [place] [address] Pharmacist Pharmacy 04/15/25 Dana Damon PharmD [address] [place] [address] Pharmacist Pharmacy 04/15/25 04/15/25 Maria G Sellers CNP Psychiatrist 02/23/23 [facility] 03/24/25 documented as of this encounter
--- OUTSIDE RECORDS SUMMARY | 2025-05-15 18:16 | XMS_ITS | Encounter Summary ---
Author Organization [employer] Address [address] [place] [address] Care Team Providers Care Switch Engineer Name Role Phone Milena Shoemaker MD Primary Care Provider [phone] Dana Damon PharmD Unavailable [phone] Dana Damon PharmD Unavailable [phone] Reason for Visit * Reason Onset Date Comments Call Back Request 12/23/2023 Encounter Details Date Type Department Care Team ([facility] Contact Info) Description 12/23/2023 Telephone [facility] MEDICINE [address] [place] [address] Milena Shoemaker MD [address] [place], [place] [phone] Call Back Request Social History Tobacco Use [...] Description 05/24/2025 10:30 AM EST Medication Management [facility] MED & PEDS [address] [place] [address] Dana Damon PharmD [address] [place] [address] 05/27/2025 10:00 AM EST Office Visit [facility] MED & PEDS [address] [place], [place] [phone] Milena Shoemaker MD [address] [place] [address] 06/05/2025 9:30 AM EST Clinical Support [facility] MED & PEDS [address] [place] [address] Luma Dalton RN [address] [place], [place] documented as of this encounter Visit Diagnoses Not on filedocumented in this encounter Additional Health Concerns Assessment Noted Time PHQ-9 Depression Total Score: 7 07/15/19 23 1:17 PM EST documented as of this encounter Care Teams Switch Engineer Relationship Specialty Start Date End Date Milena Shoemaker MD [address] [place] [address] PCP - General Family Medicine 08/12/22 Dana Damon, PharmD [address] [place] [address] Pharmacist Pharmacy 04/15/25 Dana Damon PharmD [address] [place] [address] Pharmacist Pharmacy 04/15/25 04/15/25 Maria G Sellers CNP Psychiatrist 02/23/23 [facility] 03/24/25 documented as of this encounter
--- OUTSIDE RECORDS SUMMARY | 2025-05-15 18:16 | XMS_ITS | Encounter Summary ---
Author Organization [employer] Address [address] [place] [address] Care Team Providers Care Correction Officer Supervisor Name Role Phone Milena Shoemaker MD Primary Care Provider [phone] Dana Damon PharmD Unavailable [phone] Dana Damon PharmD Unavailable [phone] Encounter Details Date Type Department Care Team ([facility] st Contact Info) Description 12/23/2023 Orders Only [facility] CH[facility] MED & PEDS [address] [place], [place] [phone] Johanna Camargo MD [address] [place] [address] Primary hypertension (Primary Dx) Social History Tobacco [...] Description 05/24/2025 10:30 AM EST Medication Management [facility] MED & PEDS [address] [place] [address] Dana Damon PharmD [address] [place] [address] 05/27/2025 10:00 AM EST Office Visit [facility] MED & PEDS [address] [place] [address] Milena Shoemaker MD [address] [place] [address] 06/05/2025 9:30 AM EST Clinical Support [facility] MED [facility] PEDS [address] [place] [address] Luma Dalton, LUIS [address] [place] [address] documented as of this encounter Visit Diagnoses Diagnosis Primary hypertension- Primary Unspecified essential hypertension documented in this encounter Additional Health Concerns Assessment Noted Time PHQ-9 Depression Total Score: 7 07/15/19 1:17 PM EST documented as of this encounter Care Teams Correction Officer Supervisor Relationship Specialty Start Date End Date Milena Shoemaker MD [address] [place] [address] PCP - General Family Medicine 08/12/22 Dana Damon, PharmD [address] [place] [address] Pharmacist Pharmacy 04/15/25 Dana Damon, ChadD [address] [place] [address] Pharmacist Pharmacy 04/15/25 04/15/25 Maria G Sellers CNP Psychiatrist 02/23/23 [facility] 03/24/25 documented as of this encounter
--- OUTSIDE RECORDS SUMMARY | 2025-05-15 18:16 | XMS_ITS | Encounter Summary ---
Author Organization [employer] Address [address] [facility] 7t [place] [address] Care Team Providers Care Equipment Service Technician Name Role Phone Milena Shoemaker MD Primary Care Provider [phone] Dana Damon PharmD Unavailable [phone] Dana Damon PharmD Unavailable [phone] Reason for Visit * Reason Comments Med Refill Encounter Details Date Type Department Care Team ([facility] st Contact Info) Description 12/10/2023 Refill [facility] CHC MED & PEDS [address] [place] [address] Milena Shoemaker MD [address] [place] [address] Social History Tobacco Use Types Packs/Day Years [...] Description 05/24/2025 10:30 AM EST Medication Management [facility] MED & PEDS [address] [place] [address] Dana Damon PharmD [address] [place] [address] 05/27/2025 10:00 AM EST Office Visit [facility] MED & PEDS [address] [place] [address] Milena Shoemaker MD 505 [place] [address] 06/05/2025 9:30 AM EST Clinical Support [facility] MED & PEDS [address] [place] [address] Luma Dalton, LUIS 505 [place] [address] documented as of this encounter Visit Diagnoses Not on filedocumented in this encounter Additional Health Concerns Assessment Noted Time PHQ-9 Depression Total Score: 7 07/15/19 23 1:17 PM EST documented as of this encounter Care Teams Equipment Service Technician Relationship Specialty Start Date End Date Milena Shoemaker MD [address] [place] [address] PCP - General Family Medicine 08/12/22 Dana Damon PharmD [address] [place] [address] Pharmacist Pharmacy 04/15/25 Dana Damon, ChadD [address] [place] [address] Pharmacist Pharmacy 04/15/25 04/15/25 Maria G Sellers CNP Psychiatrist 02/23/23 [facility] 03/24/25 documented as of this encounter
--- OUTSIDE RECORDS SUMMARY | 2025-05-15 18:16 | XMS_ITS | Encounter Summary ---
Author Organization [employer] Address [address] [facility] 7t [place] [address] Care Team Providers Care Collections Professional Name Role Phone Milena Shoemaker MD Primary Care Provider [phone] Dana Damon PharmD Unavailable [phone] Dana Damon PharmD Unavailable [phone] Reason for Visit * Reason Onset Date Comments Med Refill 04/10/2024 Encounter Details Date Type Department Care Team ([facility] st Contact Info) Description 04/10/[address] [facility] CHC MED & PEDS [address] [place] [address] Milena Shoemaker MD [address] [place], [place] [id number] Chronic midline low back pain without sciatica [...] Description 05/24/2025 10:30 AM EST Medication Management [facility] MED & PEDS [address] [place] [address] Dana Damon PharmD [address] [place] [address] 05/27/2025 10:00 AM EST Office Visit [facility] MED & PEDS [address] [place] [address] Milena Shoemaker MD [address] [place] [address] 06/05/2025 9:30 AM EST Clinical Support [facility] MED & PEDS [address] [place] [address] Luma Dalton, LUIS [address] [place] [address] documented as of this encounter Visit Diagnoses Diagnosis Chronic midline low back pain without sciatica documented in this encounter Additional Health Concerns Assessment Noted Time PHQ-9 Depression Total Score: 7 07/15/19 23 1:17 PM EST documented as of this encounter Care Teams Collections Professional Relationship Specialty Start Date End Date Milena Shoemaker MD [address] [place] [address] PCP - General Family Medicine 08/12/22 Dana Damon, PharmD [address] [place] [address] Pharmacist Pharmacy 04/15/25 Dana Damon, ChadD [address] [place] [address] Pharmacist Pharmacy 04/15/25 04/15/25 Maria G Sellers CNP Psychiatrist 02/23/23 [facility] 03/24/25 documented as of this encounter
--- OUTSIDE RECORDS SUMMARY | 2025-05-15 18:16 | XMS_ITS | Encounter Summary ---
Author Organization [employer] Address 75 [facility] 7t [place] [address] Care Team Providers Care Bilingual Social Worker Name Role Phone Milena Shoemaker MD Primary Care Provider [phone] Dana Damon PharmD Unavailable [phone] Reason for Visit * Reason Onset Date Comments Med Refill 05/15/2025 Encounter Details Date Type Department Care Team ([facility] st Contact Info) Description 05/15/2025 Refill [facility] CHC MED & PEDS 505 [place] [address] Milena Shoemaker MD 505 [place] [address] Chronic midline low back pain without sciatica [...] 10:30 AM EST Medication Management [facility] MED & PEDS [address] [place] [address] Dana Damon, PharmD [address] [place] [address] 05/27/2025 10:00 AM EST Office Visit [facility] MED & PEDS 505 [place] [address] Milena Shoemaker MD [address] [place] [address] 06/05/2025 9:30 AM EST Clinical Support [facility] MED & PEDS 505 [place] [address] Luma Dalton RN [address] [place] [address] documented as of this encounter Goals Goal Patient Goal Type Associated Problems Recent Progress Patient-Stated? Author Help patients manage their type 2 diabetes Care Plan Help patients manage their type 2 diabetes No Luma Dalton, LUIS Weekly blood pressure task Care Plan Weekly blood pressure task No Luma Dalton RN Help patients manage their type 2 diabetes Care Plan Help patients manage their type 2 diabetes No Luma Dalton RN Patient has chronic kidney disease Care Plan Patient has chronic kidney disease No Luma Dalton RN Help patients manage their type 2 diabetes Care Plan Help patients manage their type 2 diabetes No Luma Dalton RN Patient has diabetic neuropathy Care Plan Patient has diabetic neuropathy No Luma Dalton RN Weekly blood pressure task Care Plan Weekly blood pressure task No Luma Dalton RN Weekly blood pressure task Care Plan Weekly blood pressure task No Luma Dalton RN Patient has chronic kidney disease Care Plan Patient has chronic kidney disease No Luma Dalton RN Patient has chronic kidney disease Care Plan Patient has chronic kidney disease No Luma Dalton RN Patient has diabetic neuropathy Care Plan Patient has diabetic neuropathy No Luma Dalton RN Patient has diabetic neuropathy Care Plan Patient has diabetic neuropathy No Luma Dalton RN Weekly blood pressure task Care Plan Weekly blood pressure task No Lorraine Peguero Weekly blood pressure task Care Plan Weekly blood pressure task No Lorraine Peguero Weekly blood pressure task Care Plan Weekly blood pressure task No Lorraine Peguero Patient has chronic kidney disease Care Plan Patient has chronic kidney disease No Lorraine Peguero Patient has chronic kidney disease Care Plan Patient has chronic kidney disease No Lorraine Peguero Patient has chronic kidney disease Care Plan Patient has chronic kidney disease No Lorraine Peguero Patient has diabetic neuropathy Care Plan Patient has diabetic neuropathy No Lorraine Peguero Patient has diabetic neuropathy Care Plan Patient has diabetic neuropathy No Lorraine Peguero Patient has diabetic neuropathy Care Plan Patient has diabetic neuropathy No Lorraine Peguero documented as of this encounter Visit Diagnoses Diagnosis Chronic midline low back pain without sciatica documented in this encounter Additional Health Concerns Active Problems Noted Date Diagnosed Date Help patients manage their type 2 diabetes 04/25 Weekly blood pressure task 04/25/2025 Help patients manage their type 2 diabetes 04/25 Patient has chronic kidney disease 04/25/2025 Help patients manage their type 2 diabetes 04/25 Patient has diabetic neuropathy 04/25/2025 Weekly blood pressure task 04/25/2025 Weekly blood pressure task 04/25/2025 Patient has chronic kidney disease 04/25/2025 Patient has chronic kidney disease 04/25/2025 Patient has diabetic neuropathy 04/25/2025 Patient has diabetic neuropathy 04/25/2025 Weekly blood pressure task 04/30/2025 Weekly blood pressure task 04/30/2025 Weekly blood pressure task 04/30/2025 Patient has chronic kidney disease 04/30/2025 Patient has chronic kidney disease 04/30/2025 Patient has chronic kidney disease 04/30/2025 Patient has diabetic neuropathy 04/30/2025 Patient has diabetic neuropathy 04/30/2025 Patient has diabetic neuropathy 04/30/2025 Assessment Noted Time PHQ-9 Depression Total Score: 4 01/18/20 12:43 PM EDT documented as of this encounter Care Teams Bilingual Social Worker Relationship Specialty Start Date End Date Milena Shoemaker MD [address] [place] [address] PCP - General Family Medicine 08/12/22 Dana Damon PharmD [address] [place] [address] Pharmacist Pharmacy 04/15/25 Maria G Sellers CNP Psychiatrist 02/23/23 [facility] 03/24/25 documented as of this encounter
--- OUTSIDE RECORDS SUMMARY | 2025-05-15 18:16 | XMS_ITS | Encounter Summary ---
Author Organization [employer] Address [address] [facility] 7t [place] [address] Care Team Providers Care Proposal Development Manager Name Role Phone Milena Shoemaker MD Primary Care Provider [phone] Dana Damon PharmD Unavailable [phone] Reason for Visit * Reason Comments Med Refill Encounter Details Date Type Department Care Team ([facility] Contact Info) Description 04/21/2025 Refill [facility] CHC MED & PEDS [address] [place], [place] [phone] Milena Shoemaker MD 505 [place] [address] Asthma, unspecified asthma severity, unspecified whether complicated, [...] Description 05/24/2025 10:30 AM EST Medication Management [facility] MED & PEDS [address] [place] [address] Dana Damon, PharmD [address] [place] [address] 05/27/2025 10:00 AM EST Office Visit [facility] MED & PEDS [address] [place] [address] Milena Shoemaker MD [address] [place] [address] 06/05/2025 9:30 AM EST Clinical Support [facility] MED & PEDS [address] [place] [address] Luma Dalton, LUIS [address] [place] [address] documented as of this encounter Visit Diagnoses Diagnosis Asthma, unspecified asthma severity, unspecified whether complicated, unspecified whether persistent documented in this encounter Additional Health Concerns Assessment Noted Time PHQ-9 Depression Total Score: 4 01/18/20 25 12:43 PM EDT documented as of this encounter Care Teams Proposal Development Manager Relationship Specialty Start Date End Date Milena Shoemaker MD [address] [place] [address] PCP - General Family Medicine 08/12/22 Dana Damon PharmD [address] [place] [address] Pharmacist Pharmacy 04/15/25 Maria G Sellers CNP Psychiatrist 02/23/23 [facility] 03/24/25 documented as of this encounter
--- OUTSIDE RECORDS SUMMARY | 2025-05-15 18:16 | XMS_ITS | Encounter Summary ---
Author Organization [employer] Address [address] [place] [address] 7t [place] [address] Care Team Providers Care Clinical Operations Consultant Name Role Phone Milena Shoemaker MD Primary Care Provider [phone] Dana Damon PharmD Unavailable [phone] Dana Damon PharmD Unavailable [phone] Reason for Visit * Reason Comments Med Refill Encounter Details Date Type Department Care Team ([facility] st Contact Info) Description 08/30/2022 Refill [facility] CHC MED & PEDS [address] [place] [address] Milena Shoemaker MD [address] [place] [address] Chronic midline low back pain without sciatica [...] PM EDT This is a not a nursing home medication this is for short term, at [...] Description 05/24/2025 10:30 AM EST Medication Management [facility] MED & PEDS [address] [place] [address] Dana Damon PharmD [address] [place] [address] 05/27/2025 10:00 AM EST Office Visit [facility] MED & PEDS [address] [place] [address] Milena Shoemaker MD [address] [place] [address] 06/05/2025 9:30 AM EST Clinical Support [facility] MED & PEDS [address] [place] [address] Luma Dalton RN [address] [place] [address] documented as of this encounter Visit Diagnoses Diagnosis Chronic midline low back pain without sciatica documented in this encounter Additional Health Concerns Assessment Noted Time PHQ-9 Depression Total Score: 7 07/15/19 23 1:17 PM EST documented as of this encounter Care Teams Clinical Operations Consultant Relationship Specialty Start Date End Date Milena Shoemaker MD [address] [place] [address] PCP - General Family Medicine 08/12/22 Dana Damon, ChadD [address] [place] [address] Pharmacist Pharmacy 04/15/25 Dana Damon, Jovita [address] [place] [address] Pharmacist Pharmacy 04/15/25 04/15/25 Maria G Sellers CNP Psychiatrist 02/23/23 [facility] 03/24/25 documented as of this encounter
--- OUTSIDE RECORDS SUMMARY | 2025-05-15 18:16 | XMS_ITS | Encounter Summary ---
Author Organization [employer] Address [address] [facility] 7t [place] [address] Care Team Providers Care Corporate Travel Manager Name Role Phone Milena Shoemaker MD Primary Care Provider [phone] Dana Damon PharmD Unavailable [phone] Reason for Visit * Reason Comments Med Refill Encounter Details Date Type Department Care Team ([facility] Contact Info) Description 05/11/2025 Refill [facility] CHC MED & PEDS [address] [place], [place] [phone] Milena Shoemaker MD [address] [place] [address] Chronic midline low back pain without sciatica [...] 10:30 AM EST Medication Management [facility] MED & PEDS [address] [place] [address] Dana Damon, PharmD [address] [place] [address] 05/27/2025 10:00 AM EST Office Visit [facility] MED & PEDS [address] [place] [address] Milena Shoemaker MD [address] [place] [address] 06/05/2025 9:30 AM EST Clinical Support [facility] MED & PEDS [address] [place] [address] Luma Dalton, LUIS [address] [place] [address] documented as of this encounter Goals Goal Patient Goal Type Associated Problems Recent Progress Patient-Stated? Author Help patients manage their type 2 diabetes Care Plan Help patients manage their type 2 diabetes No Luma Dalton, LUIS Weekly blood pressure task Care Plan Weekly blood pressure task No Luma Dalton, LUIS Help patients manage their type 2 diabetes [...] documented as of this encounter Care Teams Corporate Travel Manager Relationship Specialty Start Date End Date Milena Shoemaker MD [address] [place] [address] PCP - General Family Medicine 08/12/22 Dana Damon PharmD [address] [place] [address] Pharmacist Pharmacy 04/15/25 Maria G Sellers CNP Psychiatrist 02/23/23 [facility] 03/24/25 documented as of this encounter
--- OUTSIDE RECORDS SUMMARY | 2025-05-15 18:16 | XMS_ITS | Encounter Summary ---
Author Organization [employer] Address [address] [facility] 7t [place] [address] Care Team Providers Care Grit Blaster Name Role Phone Milena Shoemaker MD Primary Care Provider [phone] Dana Damon PharmD Unavailable [phone] Dana Damon PharmD Unavailable [phone] Reason for Visit * Reason Comments Med Refill Encounter Details Date Type Department Care Team ([facility] st Contact Info) Description 01/23/2024 Refill [facility] CHC MED & PEDS [address] [place] [address] Olivia Garcia MD [address] [place] [address] Chronic midline low back pain without sciatica [...] Description 05/24/2025 10:30 AM EST Medication Management [facility] MED & PEDS [address] [place] [address] Dana Damon PharmD [address] [place] [address] 05/27/2025 10:00 AM EST Office Visit [facility] MED & PEDS [address] [place] [address] Milena Shoemaker MD [address] [place] [address] 06/05/2025 9:30 AM EST Clinical Support [facility] MED & PEDS [address] [place] [address] Luma Dalton, LUIS [address] [place] [address] documented as of this encounter Visit Diagnoses Diagnosis Chronic midline low back pain without sciatica documented in this encounter Additional Health Concerns Assessment Noted Time PHQ-9 Depression Total Score: 7 07/15/19 23 1:17 PM EST documented as of this encounter Care Teams Grit Blaster Relationship Specialty Start Date End Date Milena Shoemaker MD [address] [place] [address] PCP - General Family Medicine 08/12/22 Dana Damon, PharmD [address] [place] [address] Pharmacist Pharmacy 04/15/25 Dana Damon, Jovita [address] [place] [address] Pharmacist Pharmacy 04/15/25 04/15/25 Maria G Sellers CNP Psychiatrist 02/23/23 [facility] 03/24/25 documented as of this encounter
--- OUTSIDE RECORDS SUMMARY | 2025-05-15 18:16 | XMS_ITS | Encounter Summary ---
Author Organization [employer] Address [address] [facility] 7t [place] [address] Care Team Providers Care Warp Tying Machine Tender Name Role Phone Milena Shoemaker MD Primary Care Provider Dana Damon PharmD Unavailable [phone] Dana Damon PharmD Unavailable [phone] Reason for Visit * Reason Onset Date Comments Appointment Request 04/08/2025 Encounter Details Date Type Department Care Team ([facility] Contact Info) Description 04/08/[address] [facility] [address] [place] [address] Milena Shoemaker MD [address] [place], [place] [id number] Appointment Request Social History Tobacco Use Types Packs/Day [...] encounter Miscellaneous Notes * Telephone Encounter - Smiley Ren - 04/08/2025 1:35 PM EDT Tc from pt p t stated he unable to atted to appointment on 04/10, due his child, unable to leave his child alone. Pt requesting to reschedule appointment. Contact pt at [phone] documented in this encounter Plan of Treatment Upcoming Encounters Date Type Department Care Team (Late st Contact Info) Description 05/24/2025 10:30 AM EST Medication Management [facility] MED & PEDS [address] [place] [address] Dana Damon, PharmD [address] [place] [address] 05/27/2025 10:00 AM EST Office Visit [facility] MED & PEDS [address] [place] [address] Milena Shoemaker MD [address] [place] [address] 06/05/2025 9:30 AM EST Clinical Support [facility] CHC MED & PEDS [address] [place] [address] Luma Dalton, RN [address] [place] [address] documented as of this encounter Visit Diagnoses Not on filedocumented in this encounter Additional Health Concerns Assessment Noted Time PHQ-9 Depression Total Score: 4 01/18/20 12:43 PM EDT documented as of this encounter Care Teams Warp Tying Machine Tender Relationship Specialty Start Date End Date Milena Shoemaker MD [address] [place] [address] PCP - General Family Medicine 08/12/22 Dana Damon, PharmD [address] [place] [address] Pharmacist Pharmacy 04/15/25 Dana Damon, PharmD [address] [place] [address] Pharmacist Pharmacy 04/15/25 04/15/25 Maria G Sellers CNP Psychiatrist 02/23/23 [facility] 03/24/25 documented as of this encounter
--- OUTSIDE RECORDS SUMMARY | 2025-05-15 18:16 | XMS_ITS | Encounter Summary ---
Author Organization [employer] Address [address] [facility] 7t [place] [address] Care Team Providers Care Launch Check Out Name Role Phone Milena Shoemaker MD Primary Care Provider [phone] Dana Damon PharmD Unavailable [phone] Dana Damon PharmD Unavailable [phone] Reason for Visit * Reason Onset Date Comments Hospital Follow-up 09/23/2023 Encounter Details Date Type Department Care Team ([facility] Contact Info) Description 09/23/2023 Telephone [facility] CHC MED & PEDS [address] [place], [place] [phone] Milena Shoemaker MD [address] [place], [place] [phone] Hospital Follow-up Social History Tobacco Use Types [...] Miscellaneous Notes * Telephone Encounter - Ale Celestin - 09/23/2023 10:51 AM EDT Tc from pt requesting a HDF appt. Hospital: [facility] then transferred to [facility] Date of admission: unknown Discharge date: 09/15 Diagnosed: Septic arthritis of vertebra and ID Please contact pt at [phone] documented in this encounter Plan of Treatment Upcoming Encounters Date Type Department Care Team (Late st Contact Info) Description 05/24/2025 10:30 AM EST Medication Management [facility] MED & PEDS [address] [place] [address] Dana Damon, PharmD [address] [place] [address] 05/27/2025 10:00 AM EST Office Visit [facility] MED & PEDS [address] [place] [address] Milena Shoemaker MD [address] [place] [address] 06/05/2025 9:30 AM EST Clinical Support [facility] MED & PEDS [address] [place] [address] Luma Dalton, LUIS [address] [place], [place] documented as of this encounter Visit Diagnoses Not on filedocumented in this encounter Additional Health Concerns Assessment Noted Time PHQ-9 Depression Total Score: 7 07/15/19 23 1:17 PM EST documented as of this encounter Care Teams Launch Check Out Relationship Specialty Start Date End Date Milena Shoemaker MD [address] [place] [address] PCP - General Family Medicine 08/12/22 Dana Damon, ChadD [address] [place] [address] Pharmacist Pharmacy 04/15/25 Dana Damon, Jovita [address] [place] [address] Pharmacist Pharmacy 04/15/25 04/15/25 Maria G Sellers CNP Psychiatrist 02/23/23 [facility] 03/24/25 documented as of this encounter
--- OUTSIDE RECORDS SUMMARY | 2025-05-15 18:16 | XMS_ITS | Encounter Summary ---
Author Organization [employer] Address 75 [facility] 7t [place] [address] Care Team Providers Care Supervisor Shaving And Splitting Name Role Phone Milena Shoemaker MD Primary Care Provider [phone] Dana Damon PharmD Unavailable [phone] Dana Damon PharmD Unavailable [phone] Reason for Visit * Reason Onset Date Comments Med Refill 03/01/2024 Encounter Details Date Type Department Care Team ([facility] st Contact Info) Description 03/01/2024 Telephone [facility] CHC MED & PEDS [address] [place] [address] Milena Shoemaker MD [address] [place], [place] [phone] Med Refill Social History Tobacco Use Types [...] tablet To be sent to: [facility] - [address] documented in this encounter Plan of Treatment Upcoming Encounters Date Type Department Care Team ([facility] st Contact Info) Description 05/24/2025 10:30 AM EST Medication Management [facility] MED & PEDS [address] [place] [address] Dana Damon, PharmD [address] [place] [address] 05/27/2025 10:00 AM EST Office Visit [facility] MED & PEDS [address] [place] [address] Milena Shoemaker MD [address] [place] [address] 06/05/2025 9:30 AM EST Clinical Support [facility] MED & PEDS [address] [place] [address] Luma Dalton RN [address] [place] [address] documented as of this encounter Visit Diagnoses Not on filedocumented in this encounter Additional Health Concerns Assessment Noted Time PHQ-9 Depression Total Score: 7 07/15/19 23 1:17 PM EST documented as of this encounter Care Teams Supervisor Shaving And Splitting Relationship Specialty Start Date End Date Milena Shoemaker MD [address] [place] [address] PCP - General Family Medicine 08/12/22 Dana Damon, ChadD [address] [place] [address] Pharmacist Pharmacy 04/15/25 Dana Damon PharmD [address] [place] [address] Pharmacist Pharmacy 04/15/25 04/15/25 Maria G Sellers CNP Psychiatrist 02/23/23 [facility] 03/24/25 documented as of this encounter
--- OUTSIDE RECORDS SUMMARY | 2025-05-15 18:16 | XMS_ITS | Encounter Summary ---
Author Organization [employer] Address [address] [place] [address] 7 [place] [address] Care Team Providers Care Rotary Drill Operator Name Role Phone Milena Shoemaker MD Primary Care Provider Dana Damon PharmD Unavailable [phone] Dana Damon PharmD Unavailable [phone] Encounter Details Date Type Department Care Team ([facility] Contact Info) Description 11/10/2022 [facility] Information Management [address] [place] [address] Milena Shoemaker MD [address] [place] [id number] Social History Tobacco Use Types Packs/Day Years [...] Department Care Team (Late Contact Info) Description 05/24/2025 10:30 AM EST Medication Management [facility] MED & [facility]ED[facility] [address] [place] [address] Dana Damon PharmD [address] [place], [place] 05/27/2025 10:00 AM EST Office Visit [facility] [address] [place], [place] [phone] Milena Shoemaker MD [address] [place], [place] 06/05/2025 9:30 AM EST Clinical Support [facility] [address] [place], [place] [phone] Luma Dalton RN [address] [place], [place] documented as of this encounter Visit Diagnoses Not on filedocumented in this encounter Additional Health Concerns Assessment Noted Time PHQ-9 Depression Total Score: 7 07/15/19 23 1:17 PM EST documented as of this encounter Care Teams Rotary Drill Operator Relationship Specialty Start Date End Date Milena Shoemaker MD [address] [place] [address] PCP - General Family Medicine 08/12/22 Dana Damon PharmD [address] [place] [address] Pharmacist Pharmacy 04/15/25 Dana Damon PharmD [address] [place], [place] Pharmacist Pharmacy 04/15/25 04/15/25 Maria G Sellers CNP Psychiatrist 02/23/23 [facility] 03/24/25 documented as of this encounter
--- OUTSIDE RECORDS SUMMARY | 2025-05-15 18:16 | XMS_ITS | Encounter Summary ---
Author Organization [employer] Address [address] [facility] 7t [place] [address] Care Team Providers Care Commercial Loan Collection Officer Name Role Phone Milena Shoemaker MD Primary Care Provider [phone] Dana Damon PharmD Unavailable [phone] Dana Damon PharmD Unavailable [phone] Reason for Visit * Reason Onset Date Comments Med Refill 03/15/2025 Encounter Details Date Type Department Care Team ([facility] st Contact Info) Description 03/15/2025 Refill [facility] MED & PEDS [address] [place] [address] Milena Shoemaker MD [address] [place] [address] Chronic midline low back pain without sciatica [...] Description 05/24/2025 10:30 AM EST Medication Management [facility] MED & PEDS [address] [place] [address] Dana Damon, ChadD [address] [place] [address] 05/27/2025 10:00 AM EST Office Visit [facility] [address] [place] [address] Milena Shoemaker MD [address] [place] [address] 06/05/2025 9:30 AM EST Clinical Support [facility] MED [facility] [address] [place] [address] Luma Dalton, LUIS [address] [place] [address] documented as of this encounter Visit Diagnoses Diagnosis Chronic midline low back pain without sciatica documented in this encounter Additional Health Concerns Assessment Noted Time PHQ-9 Depression Total Score: 4 01/18/20 25 12:43 PM EDT documented as of this encounter Care Teams Commercial Loan Collection Officer Relationship Specialty Start Date End Date Milena Shoemaker MD [address] [place] [address] PCP - General Family Medicine 08/12/22 Dana Damon PharmD [address] [place] [address] Pharmacist Pharmacy 04/15/25 Dana Damon PharmD [address] [place] [address] Pharmacist Pharmacy 04/15/25 04/15/25 Maria G Sellers CNP Psychiatrist 02/23/23 [facility] 03/24/25 documented as of this encounter
--- OUTSIDE RECORDS SUMMARY | 2025-05-15 18:16 | XMS_ITS | Encounter Summary ---
Author Organization [employer] Address [address] [facility] 7t [place] [address] Care Team Providers Care Radial Router Operator Name Role Phone Milena Shoemaker MD Primary Care Provider Dana Damon PharmD Unavailable [phone] Dana Damon PharmD Unavailable [phone] Reason for Visit * Reason Comments Med Refill Encounter Details Date Type Department Care Team ([facility] st Contact Info) Description 06/01/2023 Refill [facility] MED & PEDS [address] [place] [address] Milena Shoemaker MD [address] [place] [address] Chronic midline low back pain without sciatica [...] 10:30 AM EST Medication Management [facility] MED [facility] P[facility] [address] [place] [address] Dana Damon PharmD [address] [place] [address] 05/27/2025 10:00 AM EST Office Visit [facility] [address] [place] [address] Milena Shoemaker MD [address] [place] [address] 06/05/2025 9:30 AM EST Clinical Support [facility] [address] [place] [address] Luma Dalton RN [address] [place], [place] documented as of this encounter Visit Diagnoses Diagnosis Chronic midline low back pain without sciatica documented in this encounter Additional Health Concerns Assessment Noted Time PHQ-9 Depression Total Score: 7 07/15/19 23 1:17 PM EST documented as of this encounter Care Teams Radial Router Operator Relationship Specialty Start Date End Date Milena Shoemaker MD [address] [place] [address] PCP - General Family Medicine 08/12/22 Dana Damon PharmD [address] [place] [address] Pharmacist Pharmacy 04/15/25 Dana Damon PharmD [address] [place] [address] Pharmacist Pharmacy 04/15/25 04/15/25 Maria G Sellers CNP Psychiatrist 02/23/23 [facility] 03/24/25 documented as of this encounter
--- OUTSIDE RECORDS SUMMARY | 2025-05-15 18:16 | XMS_ITS | Encounter Summary ---
Author Organization [employer] Address [address] [facility] 7t [place] [address] Care Team Providers Care Insurance Agent Name Role Phone Milena Shoemaker MD Primary Care Provider [phone] Dana Damon PharmD Unavailable [phone] Dana Damon PharmD Unavailable [phone] Reason for Visit * Reason Comments Med Refill Encounter Details Date Type Department Care Team ([facility] st Contact Info) Description 10/18/2023 Refill [facility] CH[facility] MED & PEDS [address] [place] [address] Milena Shoemaker MD [address] [place] [address] 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, limited to breakdown of skin (CMS/[facility]) Social History Tobacco Use Types Packs/Day Years [...] 10:30 AM EST Medication Management [facility] [address] [place] [address] Dana Damon PharmD [address] [place] [address] 05/27/2025 10:00 AM EST Office Visit [facility] [address] [place] [address] Milena Shoemaker MD [address] [place] [address] 06/05/2025 9:30 AM EST Clinical Support [facility] [address] [place] [address] Luma Dalton, RN [address] [place] [address] documented as of this encounter Visit Diagnoses Diagnosis 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, limited to breakdown of skin (HCC) documented in this encounter Additional Health Concerns Assessment Noted Time PHQ-9 Depression Total Score: 7 07/15/19 23 1:17 PM EST documented as of this encounter Care Teams Insurance Agent Relationship Specialty Start Date End Date Milena Shoemaker MD [address] [place] [address] PCP - General Family Medicine 08/12/22 Dana Damon, Jovita [address] [place] [address] Pharmacist Pharmacy 04/15/25 Dana Damon, Jovita [address] [place] [address] Pharmacist Pharmacy 04/15/25 04/15/25 Maria G Sellers CNP Psychiatrist 02/23/23 [facility] 03/24/25 documented as of this encounter
--- OUTSIDE RECORDS SUMMARY | 2025-05-15 18:16 | XMS_ITS | Encounter Summary ---
Author Organization [employer] Address [address] [facility] 7t [place] [address] Care Team Providers Care Urban Design Consultant Name Role Phone Milena Shoemaker MD Primary Care Provider [phone] Dana Damon PharmD Unavailable [phone] Dana Damon PharmD Unavailable [phone] Reason for Visit * Reason Onset Date Comments Med Refill 02/13/2025 Encounter Details Date Type Department Care Team ([facility] st Contact Info) Description 02/13/2025 Refill [facility] MED & PEDS [address] [place] [address] Milena Shoemaker MD [address] [place] [address] Anaphylaxis, sequela Social History Tobacco Use Types [...] 05/24/2025 10:30 AM EST Medication Management [facility] P[facility] [address] [place] [address] Dana Damon PharmD [address] [place] [address] 05/27/2025 10:00 AM EST Office Visit [facility] [address] [place] [address] Milena Shoemaker MD [address] [place] [address] 06/05/2025 9:30 AM EST Clinical Support [facility] [address] [place] [address] Luma Dalton RN [address] [place] [address] documented as of this encounter Visit Diagnoses Diagnosis Anaphylaxis, sequela documented in this encounter Additional Health Concerns Assessment Noted Time PHQ-9 Depression Total Score: 4 01/18/20 25 12:43 PM EDT documented as of this encounter Care Teams Urban Design Consultant Relationship Specialty Start Date End Date Milena Shoemaker MD [address] [place] [address] PCP - General Family Medicine 08/12/22 Dana Damon PharmD [address] [place] [address] Pharmacist Pharmacy 04/15/25 Dana Damon, ChadD [address] [place] [address] Pharmacist Pharmacy 04/15/25 04/15/25 Maria G Sellers CNP Psychiatrist 02/23/23 [facility] 03/24/25 documented as of this encounter
--- OUTSIDE RECORDS SUMMARY | 2025-05-15 18:16 | XMS_ITS | Encounter Summary ---
Author Organization [employer] Address [address] [facility] 7t [place] [address] Care Team Providers Care Linotype Machinist Apprentice Name Role Phone Milena Shoemaker MD Primary Care Provider [phone] Dana Damon PharmD Unavailable [phone] Encounter Details Date Type Department Care Team ([facility] st Contact Info) Description 05/15/2025 Orders Only [facility] External Provider, [facility] Social History Tobacco Use Types Packs/Day Years [...] Description 05/24/2025 10:30 AM EST Medication Management [facility] MED & PEDS [address] [place] [address] Dana Damon, PharmD [address] [place] [address] 05/27/2025 10:00 AM EST Office Visit [facility] PED[facility] [address] [place] [address] Milena Shoemaker MD [address] [place] [address] 06/05/2025 9:30 AM EST Clinical Support [facility] P[facility] [address] [place] [address] Luma Dalton RN [address] [place] [address] documented as of this encounter Goals Goal Patient Goal Type Associated Problems Recent Progress Patient-Stated? Author Help patients manage their type 2 diabetes Care Plan Help patients manage their type 2 diabetes No Luma Dalton RN Weekly blood pressure [...] Care Plan Weekly blood pressure task No Marielena Lorraine Weekly blood pressure task Care Plan Weekly blood pressure task No Marielena Lorraine Weekly blood pressure task Care Plan Weekly blood pressure task No Marielena Lorraine Patient has chronic kidney disease Care Plan Patient has chronic kidney disease No Marielena Lorraine Patient has chronic kidney disease Care Plan Patient has chronic kidney disease No Marielena Lorraine Patient has chronic kidney disease Care Plan Patient has chronic kidney disease No Marielena Lorraine Patient has diabetic neuropathy Care Plan Patient has diabetic neuropathy No Marielena Lorraine Patient has diabetic neuropathy Care Plan Patient has diabetic neuropathy No Marielena Lorraine Patient has diabetic neuropathy Care Plan Patient has diabetic neuropathy No Lorraine Peguero documented as of this encounter Procedures Procedure Name Priority Date/Time Associated Diagnosis Comments HIGH SENSITIVITY TROPONIN I Routine 05/15/2025 4:21 PM EST XR CHEST 2 VIEWS Routine 05/15/2025 3:42 PM EST documented in this encounter Results * High Sensitivity Troponin I (05/15/2025 4:21 PM EST) TROPONIN I HIGH SENSITIVITY <2.7 <3.5 - 35.0 ng/L [facility] Comment:The Duff high sens itivity Troponin-I results should beused in conjunction with other diagnostic information suchas ECG, clinical observations and information, and patientsymptoms to aid in the diagnosis of SC. 05/15/2025 4:21 PM EST 05/15/2025 4:24 PM EST us Generic External Data Provider LAB BLOOD ORDERAB LES Final Result [facility] [address] [place] [phone] * XR Chest 2 Views (05/15/2025 3:42 PM EST) Anatomical Region Laterality Modality Chest Radiographic Loida ging 05/15/2025 3:42 PM EST Narrative 05/15/2025 3:50 PM EST [address] [address] XRay Report Signed Patient: Gallo Saini MR#: [id number] : 1970 Acct:[id number] Age/Sex: 54 / M ADM Date: 05/15/25 Loc: .ED Attending Dr: Ordering Physician: Lorna Vega NP Date of Service: 05/15/25 Procedure(s): XR chest 2V Accession Number(s): [id number] cc: Lorna Vega NP; Milena Shoemaker MD Reason for Exam: chest pain and pressure EXAMINATION: XR CHEST CLINICAL INFORMATION: chest pain and pressure COMPARISON: November 22, 2024 TECHNIQUE: 2 views of the chest were obtained. FINDINGS: No significant abnormality is noted involving the heart, lungs, mediastinum, bony thorax or soft tissues. XR/XR chest 2V IMPRESSION: No acute disease Electronically signed by: Vinny Granado MD 05/15/2025 03:48 PM EST Dictated By: Vinny Granado MD Signed By: <Electronically signed by Vinny Granado MD in OV> 05/15/25 1548 DD/ 1542 TD/TT: 05/15/25 1545 Field Consultant: Procedure Note Donotcompainterpreter, Image - 05/15/[address] [address] XRay Report Signed Patient: Gallo SainiMR#: [id number] : 1970Acct:[id number] Age/Sex: 54 / MADM Date: 05/15/25 Loc: HO.ED Attending Dr: Ordering Physician: Lorna Vega NP Date of Service: 05/15/25 Procedure(s): XR chest 2V Accession Number(s): [id number] cc: Lorna Vega NP; Milena Shoemaker MD Reason for Exam: chest pain and pressure EXAMINATION: XR CHEST CLINICAL INFORMATION: chest pain and pressure COMPARISON: November 22, 2024 TECHNIQUE: 2 views of the chest were obtained. FINDINGS: No significant abnormality is noted involving the heart, lungs, mediastinum, bony thorax or soft tissues. XR/XR chest 2V IMPRESSION: No acute disease Electronically signed by: Vinny Granado MD 05/15/2025 03:48 PM EST Dictated By: Vinny Granado MD Signed By: <Electronically signed by Vinny Granado MD in OV> 05/15/25 1548 DD/ 1542 TD/TT: 05/15/25 1545 Field Consultant: [facility] External Provider IMG XR PROCEDURES Final Result documented in this encounter Visit Diagnoses Not on filedocumented in this encounter Additional Health Concerns Active [...] documented as of this encounter Care Teams Linotype Machinist Apprentice Relationship Specialty Start Date End Date Milena Shoemaker MD [address] [place] [address] PCP - General Family Medicine 08/12/22 Dana Damon PharmD [address] [place] [address] Pharmacist Pharmacy 04/15/25 Maria G Sellers CNP Psychiatrist 02/23/23 [facility] 03/24/25 documented as of this encounter
--- OUTSIDE RECORDS SUMMARY | 2025-05-15 18:17 | XMS_ITS | Clinical Summary ---
Author Organization [employer] Address [address] [facility] [address] [place] [address] Care Team Providers Care Hotel Or Motel Cleaning Supervisor Name Role Phone Milena Shoemaker MD Primary Care Provider [phone] Dana Damon PharmD Unavailable [phone] Allergies Active Allergy Reactions Criticality Noted Date [...] 2 times daily. 1 kit 023 Active ondansetron (Zofran) 4 MG tablet Take 1 tablet (4 mg) by mouth every 8 (eight) hours if needed for nausea or vomiting. 20 tablet 024 Active Blood Glucose Monitoring Suppl (Zazzle Lite) w/Device kit Use to test blood sugar QID times daily 1 kit 11 024 Active Lancets misc Use to test blood sugar QID times daily 100 each Active glucose blood (FreeStyle Precision Alexander Test) test strip 1 each by Other route 3 times daily. TID due to medicare coverage 100 each Active fluticasone (Flonase) 50 MCG/ACT nasal sprayIndications :Seasonal allergies USE ONE SPRAY IN EACH NOSTRIL TWICE DAILY 16 g 5 Active naloxone (Narcan) 4 mg/0.1 mL nasal spray Administer 1 spray (4 mg) into affected nostril(s) if needed for opioid reversal. May repeat every 2-3 minutes if needed, alternating nostrils, until medical assistance becomes available. 2 each 2025 Active atorvastatin (Lipitor) 80 MG tabletIndication s:Hyperlipidemia , unspecified hyperlipidemia type TAKE ONE TABLET AT BEDTIME 90 tablet 11 04/25/20 25 8:46 AM EST Active BD Pen Needle Short Ultrafine 31G X 8 MM misc 1 each 4 times daily. Active clotrimazole (Lotrimin) 1 % creamIndications :Tinea versicolor Apply topically 2 times daily. 90 g 1 Active Alcohol Swabs (Alcohol Prep) 70 % pads USE FOUR TIMES DAILY 100 each Active acetaminophen (Tylenol 8 Hour) 650 MG ER tablet TAKE ONE TABLET BY MOUTH EVERY EIGHT HOURS NEEDED FOR PAIN 90 tablet 2 Active magnesium oxide (Mag-Ox) 400 (240 Mg) MG tabletIndication s:Cramp and spasm TAKE ONE TABLET BY MOUTH EVERY MORNING 90 tablet 1 Active tamsulosin (Flomax) 0.4 MG 24 hr capsule TAKE ONE CAPSULE BY MOUTH EVERY MORNING 90 capsule Active polyethylene glycol, PEG, 3350 (Miralax) 17 g packet MIX ONE PACKET IN EIGHT OUNCES OF WATER, JUICE,SODA, COFFEE, OR TEA TWICE DAILY NEEDED FOR CONSTIPATION Active docusate sodium (Colace) 100 MG capsule Take 100 mg by mouth 2 times daily. Active amLODIPine (Norvasc) 5 MG tabletIndication s:Primary hypertension Take 1 tablet (5 mg) by mouth Once per day. 90 tablet 04/25/20 8:46 AM EST Active chlorthalidone (Hygroton) 50 MG tabletIndication s:Primary hypertension Take 1 tablet (50 mg) by mouth in the morning. 90 tablet 1 04/25/20 8:46 AM EST Active hydrALAZINE (Apresoline) 100 MG tabletIndication s:Primary hypertension Take 1 tablet (100 mg) by mouth 3 times daily. 90 tablet 04/25/20 8:46 AM EST 025 2025 Active labetalol (Normodyne) 300 MG tabletIndication s:Primary hypertension Take 1 tablet (300 mg) by mouth 2 times daily. 60 tablet 04/25/20 8:46 AM EST 025 2025 Active losartan (Cozaar) 100 MG tabletIndication s:Essential (primary) hypertension,Kristan cody hypertension Take 1 tablet (100 mg) by mouth in the morning. tablet 04/25/20 8:46 AM EST Active spironolactone (Aldactone) 25 MG tabletIndication s:Primary hypertension Take 1 tablet (25 mg) by mouth in the morning. 90 tablet 1 04/25/20 8:46 AM EST 025 Active Continuous Glucose Sensor (FreeStyle Cata 3 Plus Sensor) misc 1 each every 15 days. Apply 1 every 15 days as directed for CGM 2 each 05/13/20 12:07 PM EST Active insulin degludec (Tresiba FlexTouch) 200 UNIT/ML injection Inject 60 Units under the skin at bedtime. 3 mL Active insulin aspart (NovoLOG FLEXPEN) 100 UNIT/ML pen Inject 10 Units under the skin before breakfast, before lunch, and before evening meal. 10 mL 025 Active EPINEPHrine (Epipen) 0.3 MG/0.3ML injection syringeIndicatio ns:Anaphylaxis, sequela INJECT INTRAMUSCULARLY DIRECTED ON PACKAGE 4 each 025 Active albuterol (Ventolin HFA) 108 (90 Base) MCG/ACT inhalerIndicatio ns:Asthma, unspecified asthma severity, unspecified whether complicated, unspecified whether persistent INHALE 2 PUFFS BY MOUTH EVERY 4 TO 6 HOURS NEEDED FOR SHORTNESS OF BREATH OR WHEEZING 18 g 1 025 Active capsaicin (Zostrix) 0.025 % cream APPLY TO THE AFFECTED AREA(S) TWICE DAILY 60 g 2 025 Active gabapentin (Neurontin) 800 MG tabletIndication s:Diabetic polyneuropathy associated with type 2 diabetes mellitus (HCC) TAKE ONE TABLET THREE TIMES DAILY 90 tablet 5 04/25/20 25 8:46 AM EST 025 Active oxyCODONE (Roxicodone) 5 MG immediate release tabletIndication s:Chronic midline low back pain without sciatica Take 1 tablet (5 mg) by mouth every 6 (six) hours if needed for severe pain. Do not start before April 17, 2025. 112 tablet 025 Active doxycycline (Vibra-Tabs) 100 MG tabletIndication s:History of amputation of right great toe (CMS/HCC) Take 1 tablet (100 mg) by mouth 2 times daily for 10 days. Take with a full glass of water and do not lie down for at least 30 minutes after. 20 tablet 05/13/20 25 12:07 PM EST 025 2024 Active Mounjaro 2.5 MG/0.5ML solution auto-injectorInd ications:Type 2 diabetes mellitus with hyperglycemia, with long-term current use of insulin ([facility]) INJECT ONE PEN (=2.5MG) SUBCUTANEOUSLY ONCE A WEEK DIRECTED 2 mL 2 05/13/20 25 12:07 PM EST 025 Active baclofen (Lioresal) 10 MG tabletIndication s:Chronic midline low back pain without sciatica TAKE ONE TABLET THREE TIMES DAILY IN THE MORNING, EVENING AND BEDTIME 90 tablet 2 025 Active Tirzepatide 2.5 MG/0.5ML solution auto-injectorInd ications:Type 2 diabetes mellitus with hyperglycemia, with long-term current use of insulin ([facility]) Inject 2.5 mg under the skin 1 (one) time per week. Do not start before January 21, 2025. 2 mL 2 025 2024 Discontinued baclofen (Lioresal) 10 MG tabletIndication s:Chronic midline low back pain without sciatica TAKE ONE TABLET THREE TIMES DAILY 90 tablet 2 04/25/20 8:46 AM EST 025 2024 Discontinued Active Problems Problem Noted Date Diagnosed Date Osteomyelitis 04/15/2025 Renal lesion 04/15/2025 Status post amputation of right great toe 2024 Acute non-recurrent maxillary sinusitis 01/08/20 Assessment & [...] the foot. 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 This is consistent with the [place] [employer] s Standards of Medical Care in Diabetes--2023 (https://diabetesjournals.org/care/article/47/Supplement_1/S126/907895/7-Diabete s-Daysi congepm-Tzrcrfcst-if-Care-in) Assessment & Plan (04/23/2024 1:51 AM EST): [...] will be prudent to refer patient to mica inspector. Edema 07/15/2022 Assessment & Plan (07/15/2022 5:13 [...] right f oot with fat layer exposed ([facility]) 05/17/2024 05/17/2024 Type 2 diabetes mellitus, wi th long-term current use of insulin 08/30/2023 05/17/2024 Assessment & Plan (01/23/2024 11:31 AM EDT): A1c is improving but not at goal, 9.1%. Time in range is 36%, discussed range goal. Increasing Trulicity to 3 mg. Check glucose 4x daily. Relevant Medications Alcohol swabs 70% pads Blood Glucose Monitoring Suppl (Freestyle [place] Lite) w/Device Kit Freestyle Lite test strip Lancets [facility] Assessment & Plan (10/21/2023 9:34 AM EDT): [...] Class 2 obesity 07/15/2022 07/15/2022 Morbid obesity (CMS/[facility]) 07/15/202205/2023 Renal mass 07/15/2022 07/15/2022 Encounters Date Type Department Care Team Description 05/15/2025 Refill [facility] [address] [place] [address] Milena Shoemaker MD Chronic midline low back pain without sciatica 05/15/2025 Orders Only [facility] External Provider, [facility] 05/11/2025 Refill [facility] [address] [place] [address] Milena Shoemaker MD Chronic midline low back pain without sciatica 05/02/2025 Refill [facility] [address] [place] [address] Milena Shoemaker MD Type 2 diabetes mellitus with hyperglycemia, with long-term current use of insulin (HCC) 04/30/2025 Telephone [facility] [address] [place] [address] Milena Shoemaker MD Medicare Annual Wellness Visit Initial (AWV unscheduled) 04/25/2025 9:30 AM EST Clinical Support [facility] [address] [place] [address] Luma Dalton RN Chronic midline low back pain without sciatica (Primary Dx) 04/25/2025 Travel 04/21/2025 Refill [facility] [address] [place] [address] Milena Shoemaker MD Asthma, unspecified asthma severity, unspecified whether complicated, unspecified whether persistent 04/18/2025 10:00 AM EST Office Visit [facility] [address] [place] [address] Johanna Camargo MD History of amputation of right great toe (CMS/HCC) (Primary Dx); Toe osteomyelitis, right (CMS/HCC) (HCC); Right renal mass; Type 2 diabetes mellitus with hyperglycemia, with long-term current use of insulin (HCC); Resistant hypertension 04/18/2025 Travel 04/15/2025 Refill [facility] [address] [place] [address] Milena Shoemaker MD Chronic midline low back pain without sciatica 04/15/2025 Travel 04/15/2025 Telephone [facility] [address] [place] [address] Milena Shoemaker MD Nurse Triage 04/09/2025 Telephone [facility] [address] [place] [address] Johanna Camargo MD No Show 04/08/2025 Telephone [facility] [address] [place] [address] Luma Dalton, LUIS 04/08/2025 Telephone [facility] [address] [place] [phone] Milena Shoemaker MD Appointment Request 04/08/2025 Telephone [facility] [address] [place] [address] Milena Shoemaker MD Chart Prep 04/01/2025 Refill [facility] [address] [place] [address] Avila Cee MD Diabetic polyneuropathy associated with type 2 diabetes mellitus (HCC) 04/01/2025 Refill [facility] [address] [place], [place] [phone] Eri Leo MD Diabetic polyneuropathy associated with type 2 diabetes mellitus (HCC) 03/28/2025 Telephone [facility] [address] [place] [address] Dana Damon, PharmD 03/26/2025 Telephone [facility] [address] [place] [address] Milena Shoemaker MD Referral (FYI/) 03/25/2025 Telephone [facility] [address] [place], [place] [phone] Milena Shoemaker MD verbal order 03/21/2025 Telephone [facility] [address] [place] [phone] Milena Shoemaker MD No Show 03/20/2025 Telephone [facility] [address] [place], [place] [phone] Milena Shoemaker MD Chart Prep 03/16/2025 Orders Only GENERIC EXTERNAL DATA DEPARTMENT Provider, Generic External Data 03/15/2025 Refill [facility] [address] [place], [place] [phone] Milena Shoemaker MD Chronic midline low back pain without sciatica 03/15/2025 Refill [facility] [address] [place] [address] Eri Leo MD Asthma, unspecified asthma severity, unspecified whether complicated, unspecified whether persistent 03/11/2025 Telephone [facility] [address] [place] [address] Milena Shoemaker MD 03/07/2025 10:00 AM EDT Clinical Support [facility] [address] [place] [address] Luma Dalton RN Chronic midline low back pain without sciatica (Primary Dx) 03/07/2025 Refill [facility] [address] [place] [address] Luma Dalton RN Chronic midline low back pain without sciatica 03/07/2025 Telephone [facility] [address] [place] [address] Luma Dalton RN 03/07/2025 Travel 03/07/2025 Telephone [facility] [address] [place] [address] Luma Dalton RN 02/18/2025 Refill [facility] [address] [place] [address] Eri Leo MD Asthma, unspecified asthma severity, unspecified whether complicated, unspecified whether persistent 02/13/2025 Refill [facility] [address] [place] [address] Milena Shoemaker MD Anaphylaxis, sequela 02/13/2025 Refill [facility] [address] [place] [address] Milena Shoemaker MD Chronic midline low back pain without sciatica; Anaphylaxis, sequela from Last 3 Months Immunizations Immunization Administration [...] Sign Reading Time Taken Comments Blood Pressure 151/76 04/18/2025 9:51 AM EST Pulse 72 04/18/2025 9:51 AM EST Temperature 36.8 C (98.2 F) 01/17/2025 12:42 PM EDT Respiratory Rate 20 04/18/2025 9:51 AM EST Oxygen Saturation 98% 04/18/2025 9:51 AM EST Inhaled Oxygen Concentration - - Weight 119 kg (262 lb) 04/18/2025 9:51 AM EST Height 173 cm (5' 8.11 ) 04/18/2025 9:51 AM EST Body Mass Index 39.71 04/18/2025 9:51 AM EST Plan of Treatment Upcoming Encounters Date Type Department Care Team (Late st Contact Info) Description 05/24/2025 10:30 AM EST Medication Management [facility] [address] [place] [address] Dana Damon, PharmD [address] [place] [address] 05/27/2025 10:00 AM EST Office Visit [facility] [address] [place] [address] Milena Shoemaker MD [address] [place] [address] 06/05/2025 9:30 AM EST Clinical Support [facility] [address] [place] [address] Luma Dalton RN [address] [place] [address] Health Maintenance Due Date Last Done Comments CT Colonography 1972 Colonoscopy 1972 Colorectal Cancer Screening 1972 Dental Prophylaxis 1972 FIT DNA/Cologuard 1972 FIT 1972 FOBT 1972 HIV Screening 1972 Sigmoidoscopy 1972 Eye Exam 1982 Family Planning (PISQ) 11/22/1987 Hepatitis C Screening 1990 RSV Patients and Patients Aged 60 years or older (1 - Risk 50-74 years 1-dose series) 2022 Dental Oral Exam 05/15/2023 11/12/2022 Lipid Panel 07/16/2023 07/16/2022 Diabetes: Foot Exam 08/13/2023 08/12/2022, 08/12/2022, 08/12/2022, Additional history exists Dental X-Ray: Bitewings 11/14/2023 11/12/2022, 10/01 COVID-19 Vaccine (2 - season) 2025 08/13/2021 Influenza Vaccine (#1) 2025 2, 02/13/2009, 05/31/2006 Diabetes: Urine Protein Screening 06/25/2025 06/25/2024, 02/03/2021 Diabetes: Hemoglobin A1C 07/19/2025 025, 01/17/2025, 12/10/2024, Additional history exists Dental X-Ray: Full Mouth 11/13/2025 11/12/2022 Pneumococcal Vaccine: 50+ Years (2 of 2 - PCV) 12/17/2025 05/31/2006 Postponed from 05/31/2007 (Patient Refused) Zoster Vaccines (1 of 2) 12/17/2025 Pos tponed from 2022 (Patient Refused) Alcohol/Substance Use Screening 01/17/2026 01/17/2025 Depression Screening 01/17/2026 01/17/2025, 01/18/20 25 Disability Screening 01/17/2026 01/17/2025 SDOH Screening 01/17/2026 01/17/2025 Tobacco Screening 04/18/2026 04/18/2025 DTaP/Tdap/Td Vaccines (4 - Td or Tdap) 08/14/2031 08/13/2021, 08/13/2021, 12/14/2010, Additional history exists Hepatitis B Vaccines Completed 08/13/2021, 01/06/2018, 11/06/2015 [...] on patient's age to complete this topic Goals Goal Patient Goal Type Associated Problems [...] Care Plan Patient has chronic kidney disease Luma Miranda RN Help patients manage their type 2 [...] Patient has diabetic neuropathy No Lorraine Peguero Procedures Procedure Name Priority Date/Time Associated Diagnosis Comments HIGH SENSITIVITY TROPONIN I Routine 05/15/2025 4:21 PM EST XR CHEST 2 VIEWS Routine 05/15/2025 3:42 PM EST POCT REMI-14 URINE DRUG SCREEN Routine 04/25/2025 9:49 AM EST Chronic midline low back pain without sciatica SUTURE REMOVAL Routine 04/18/2025 11:49 AM EST History of amputation of right great toe (CMS/HCC) POCT GLUCOSE Routine 04/18/2025 10:53 AM EST Type 2 diabetes mellitus with hyperglycemia, with long-term current use of insulin (HCC) POCT GLYCATED HEMOGLOBIN, TOTAL Routine 04/18/2025 10:52 AM EST Type 2 diabetes mellitus with hyperglycemia, with long-term current use of insulin (HCC) CT ABDOMEN PELVIS WO CONTRAST Routine 03/17/2025 3:44 PM EDT MR FOOT W AND WO CONTRAST RIGHT Routine 03/16/2025 2:52 PM EDT MR LUMBAR SPINE W AND WO CONTRAST Routine 03/16/2025 2:40 PM EDT US VENOUS DUPLEX LE RT Routine 8:21 AM EDT XR FOOT 3+ VIEWS RIGHT Routine 2:35 AM EDT GLUCOSE, WHOLE BLOOD Routine 03/16/2025 2:19 AM EDT POCT REMI-14 URINE DRUG SCREEN Routine 03/07/2025 10:31 AM EDT Chronic midline low back pain without sciatica CREATININE, RANDOM URINE Routine 06/25/2024 3:06 PM EST INTRAORAL - COMPLETE SERIES OF RADIOGRAPHIC IMAGES Routine 11/12/2022 9:00 AM EDT COMPREHENSIVE ORAL EVALUATION - NEW OR ESTABLISHED PATIENT Routine 11/12/2022 9:00 AM EDT LIPID PANEL, STANDARD Routine 07/16/2022 10:33 AM EST Morbid obesity (CMS/HCC) from Last 3 Months or Most Recently Relevant to Health Maintenance Results * High Sensitivity Troponin I (05/15/2025 4:21 PM EST) TROPONIN I HIGH SENSITIVITY <2.7 <3.5 - 35.0 ng/L [facility] Comment:The Duff high sens itivity Troponin-I results should beused in conjunction with other diagnostic information suchas ECG, clinical observations and information, and patientsymptoms to aid in the diagnosis of [place]. 05/15/2025 4:21 PM EST 05/15/2025 4:24 PM EST us Generic External Data Provider LAB BLOOD ORDERAB LES Final Result Performing Organization Address City/State/[facility] Co de Phone Number [facility] [address] [place] [phone] * XR Chest 2 Views (05/15/2025 3:42 PM EST) Anatomical Region Laterality Modality Chest Radiographic Loida ging 05/15/2025 3:42 PM EST Narrative 05/15/2025 3:50 PM EST [address] [address] XRay Report Signed Patient: Gallo Saini MR#: [id number] : 1970 Acct:[id number] Age/Sex: 54 / M ADM Date: 05/15/25 Loc: HO.ED Attending Dr: Ordering Physician: Lorna Vega NP Date of Service: 05/15/25 Procedure(s): XR chest 2V Accession Number(s): [id number] cc: Lorna Vega NP; Milena Shoemaker MD [...] Vinny Granado MD 05/15/2025 03:48 PM EST RP Dictated By: Vinny Granado MD Signed By: <Electronically signed by Vinny Granado MD in OV> 05/15/25 1548 DD/ 1542 TD/TT: 05/15/25 154 Wedding Day Coordinator: Procedure Note Donotuseinterpreter, Image - 05/15/2025 [place] [address] XRay Report Signed Patient: Gallo SainiMR#: [id number] : 1970Acct:[id number] Age/Sex: 54 / MADM Date: 05/15/25 Loc: HO.ED Attending Dr: Ordering Physician: Lorna Vega NP Date of Service: 05/15/25 Procedure(s): XR chest 2V Accession Number(s): [id number] cc: Lorna Vega NP; Milena Shoemaker MD [...] Vinny Granado MD 05/15/2025 03:48 PM EST RP Dictated By: Vinny Granado MD Signed By: <Electronically signed by Vinny Granado MD in OV> 05/15/25 1548 DD/ 1542 TD/TT: 05/15/251544 Wedding Day Coordinator: [facility] External Provider IMG XR PROCEDURES Final Result * (ABNORMAL) POCT REMI-14 Urine Drug Screen (04/25/2025 9:49 AM EST) Only the most recent of2 resultswithin the [...] Negative ng/mL Oxycodone Screen, Urine Positive(A) Negative Comment:Rx Phencyclidine (PCP), Urine Negative Negative Propoxyphene, Urine Negative Negative Fentanyl, Urine Negative Negative Urine Urine specimen obtained by clean catch procedure / Unknown 04/25/2025 9:49 AM EST Narrative Luma Dalton RN - 04/25/2025 9:49 AM EST . Internal Pass Control Lot# [id number] Exp: 03-19-26 Milena Shoemaker MD POINT OF CARE TEST ENTER/EDIT ORDERABLES Final Result * Suture Removal (04/18/2025 11:49 AM EST) Narrative Johanna Camargo MD - 04/18/2025 11:49 AM EST Johanna Camargo MD 04/18/2025 12:40 PM Suture Removal Date/Time: 04/18/2025 11:49 AM Performed by: Johanna Camargo MD Authorized by: Johanna Camargo MD Consent: Consent obtained: Verbal and written Consent given by: Patient Risks discussed: Pain Alternatives discussed: Referral [place] protocol: Procedure explained and questions answered to patient or proxy's satisfaction: yes Relevant documents present and verified: no Test results available: no Imaging studies available: no Required blood products, implants, devices, and special equipment available: no Site/side marked: no Immediately prior to procedure, a time out was called: yes Patient identity confirmed: Verbally with patient Location: Location: right foot. Procedure details: Wound appearance: Draining and purulent Drainage characteristics: Yellow w/ debris Number of sutures removed: 3 Number of rebeca removed: 0 Post-procedure details: Post-removal: Antibiotic ointment applied Procedure completion: Tolerated well, no immediate complications Comments: Pt is to cleansed the area w/ normal saline and to cover the area w/ a clean dressing. us Johanna Camargo MD IN CLINIC/BEDSIDE ORDERABLE S Final Result * POCT Glucose (04/18/2025 10:53 AM EST) Glucose Blood, POC 173 60 - 200 mg/dL QC Media Lot # [id number] Lot# Expiration Date Comment:random Blood Capillary blood specimen / Unknown 04/18/2025 10:53 AM EST Johanna Camargo MD POINT OF CARE TEST ENTER/ED IT ORDERABLES Final Result * (ABNORMAL) POCT Hgb A1c (04/18/2025 10:52 AM EST) Hemoglobin A1C 10.6(A) 4.0 - 5.7 % QC Media Lot # [id number] Lot# Expiration Date , Blood 04/18/2025 10:5 2 AM EST us Johanna Camargo MD POINT OF CARE TEST ENTER/ED IT ORDERABLES Final Result * CT Abdomen Pelvis w/o Contrast (03/17/2025 3:44 PM EDT) Anatomical Region Laterality Modality Body, Pelvis, Abdomen Computed T omography 03/17/2025 3:44 PM EDT Narrative 03/17/2025 3:45 PM EDT [address] [address] [address] Scan Report Signed Patient: Gallo Saini MR#: [id number] : 1970 Acct:[id number] Age/Sex: 54 / M ADM Date: 03/16/25 Loc: HO.S3 358-[address]: Yesica Neri MD Ordering Physician: Miranda Mg [facility] Date of Service: 03/16/25 Procedure(s): CT abdomen pelvis wo IV con Accession Number(s): [id number] cc: Miranda Mg [facility]-; Milena Shoemaker MD Report Number: [id number]: Total DLP = 722.00 mGy-cm Reason for Exam: previous mass R kidney, re evaluate CLINICAL HISTORY: previous mass R kidney, re evaluate CT abdomen and pelvis without contrast Comparison: CT/SR - CT ABDOMEN PELVIS WITH IV CONTRAST - 11/22/24 12:06 EDT Findings: No nephrolithiasis or hydronephrosis. Bilateral perinephric stranding. Evaluation for a renal mass is limited without contrast, however when compared with the prior study which was performed with contrast right renal lesion is again seen measuring 1.4 cm (series 5, image 65 on the current study and series 5, image 72 on the prior study ). No bladder stone. No consolidation at the lung bases. Cholelithiasis. No gallbladder wall thickening or pericholecystic fluid.. The other solid organs are normal. No bowel wall thickening or dilation. A normal appendix is identified. No aneurysm. Mild calcified atherosclerotic disease of the abdominal aorta. Severe calcified atherosclerotic disease of small caliber vessels in the pelvis. No lymphadenopathy. No ascites. No acute fracture. Impression: Evaluation is limited without contrast. Within that limitation, no significant interval change to the right renal mass, presumed malignant. Follow up with urology is recommended. This document has been electronically signed by: Pearl Scott MD on 03/17/2025 15:44:32 Dictated By: Pearl Alexander MD Signed By: <Electronically signed by Pearl Alexander MD in OV> 03/17/25 1545 DD/ 1544 TD/TT: 03/17/25 1544 Wedding Day Coordinator: Procedure Note Donotuseinterpreter, Image - 03/17/[address] [address] [address] Scan Report Signed Patient: Lali Saini#: [id number] : 1970Acct:[id number] Age/Sex: 54 / MADM Date: 03/16/25 Loc: .S3 358-[address]: Yesica Neri MD Ordering Physician: Miranda Mg [facility] Date of Service: 03/16/25 Procedure(s): CT abdomen pelvis wo IV con Accession Number(s): [id number] cc: Miranda Mg [facility]; Milena Shoemaker MD Report Number: [id number]: Total DLP = 722.00 mGy-cm Reason for Exam: previous mass R kidney, re evaluate CLINICAL HISTORY: previous mass R kidney, re evaluate CT abdomen and pelvis without contrast Comparison: CT/SR - CT ABDOMEN PELVIS WITH IV CONTRAST - 11/22/24 12:06 EDT Findings: No nephrolithiasis or hydronephrosis. Bilateral perinephric stranding. Evaluation for a renal mass is limited without contrast, however when compared with the prior study which was performed with contrast right renal lesion is again seen measuring 1.4 cm (series 5, image 65 on the current study and series 5, image 72 on the prior study ). No bladder stone. No consolidation at the lung bases. Cholelithiasis. No gallbladder wall thickening or pericholecystic fluid.. The other solid organs are normal. No bowel wall thickening or dilation. A normal appendix is identified. No aneurysm. Mild calcified atherosclerotic disease of the abdominal aorta. Severe calcified atherosclerotic disease of small caliber vessels in the pelvis. No lymphadenopathy. No ascites. No acute fracture. Impression: Evaluation is limited without contrast. Within that limitation, no significant interval change to the right renal mass, presumed malignant. Follow up with urology is recommended. This document has been electronically signed by: Pearl Scott MD on 03/17/2025 15:44:32 Dictated By: Pearl Alexander MD Signed By: <Electronically signed by Pearl Alexander MD in OV> 03/17/25 1545 DD/ 1544 TD/TT: 03/17/25 1544 Wedding Day Coordinator: [facility] External Provider IMG CT PROCEDURES Edited Result - Final * MR Foot w/ and w/o Contrast Right (03/16/2025 2:52 PM EDT) Anatomical Region Laterality Modality Lower Extremities, Foot Right Magnetic Resonance 03/16/2025 2:52 PM EDT Narrative 03/16/2025 2:53 PM EDT [place] [address] Magnetic Resonance Report Signed Patient: Gallo Saini MR#: [id number] : 1970 Acct:[id number] Age/Sex: 54 / M ADM Date: 03/16/25 Loc: HO.S3 358-[address]: Yesica Neri MD Ordering Physician: Miranda Mg Date of Service: 03/16/25 Procedure(s): MR foot RT wo/w con Accession Number(s): [id number] cc: Miranda Mg; Milena Shoemaker MD Reason for Exam: suspect OM worsening wound CLINICAL HISTORY: suspect OM worsening wound MR right foot with and without gadolinium Comparison: 03/16/2025, 11/22/2024 Findings: No acute fracture. There is focal medial cortical loss with marrow signal in the distal phalanx of the great toe, possible osteomyelitis. There is diffuse subcutaneous edema in the great toe possible cellulitis. There is fluid in the flexor and extensor tendons, possible tenosynovitis. There are no focal masses or collections to suggest abscess. There are degenerative changes in the metatarsophalangeal and interphalangeal joints with small joint effusions. There are no other imaging findings to suggest septic arthritis, with no associated articular enhancement. Regional ligamentous and tendinous structures are otherwise intact IMPRESSION: 1. Findings suggesting great toe distal phalangeal osteomyelitis and overlying great toe cellulitis. 2. Great toe flexor and extensor tendon sheath fluid, possible tenosynovitis. Clinical follow-up recommended. 3. Great toe metatarsophalangeal and IP joint degenerative changes with nonspecific joint effusions. This document has been electronically signed by: Robe Wilson MD on 03/16/2025 14:52:19 Dictated By: Robe Wilson MD Signed By: <Electronically signed by Robe Wilson MD in OV> 03/16/25 1453 DD/ 145 TD/TT: 03/16/25 145 Wedding Day Coordinator: Procedure Note Donotcompainterpreter, Image - 10/04/[address] [address] Magnetic Resonance Report Signed Patient: Gallo Saini#: [id number] : 1970Acct:[id number] Age/Sex: 54 / MADM Date: 03/16/25 Loc: .S3 358-[address]: Yesica Neri MD Ordering Physician: Miranda Mg Date of Service: 03/16/25 Procedure(s): MR foot RT wo/w con Accession Number(s): [id number] cc: Miranda MgARSEN; Milena Shoemaker MD Reason for Exam: suspect OM worsening wound CLINICAL HISTORY: suspect OM worsening wound MR right foot with and without gadolinium Comparison: 03/16/2025, 11/22/2024 Findings: No acute fracture. There is focal medial cortical loss with marrow signal in the distal phalanx of the great toe, possible osteomyelitis. There is diffuse subcutaneous edema in the great toe possible cellulitis. There is fluid in the flexor and extensor tendons, possible tenosynovitis. There are no focal masses or collections to suggest abscess. There are degenerative changes in the metatarsophalangeal and interphalangeal joints with small joint effusions. There are no other imaging findings to suggest septic arthritis, with no associated articular enhancement. Regional ligamentous and tendinous structures are otherwise intact IMPRESSION: 1. Findings suggesting great toe distal phalangeal osteomyelitis and overlying great toe cellulitis. 2. Great toe flexor and extensor tendon sheath fluid, possible tenosynovitis. Clinical follow-up recommended. 3. Great toe metatarsophalangeal and IP joint degenerative changes with nonspecific joint effusions. This document has been electronically signed by: Robe Wilson MD on 03/16/2025 14:52:19 Dictated By: Robe Wilson MD Signed By: <Electronically signed by Robe Wilson MD in OV> 03/16/251452 DD/ 51 TD/TT: 03/16/251451 Wedding Day Coordinator: us [facility] External Provider IMG MRI PROCEDURES Edited Result - Final * MR Lumbar Spine w/ and w/o Contrast (03/16/2025 2:40 PM EDT) Anatomical Region Laterality Modality Spine, L-spine Magnetic Resonan ce 03/16/2025 2:40 PM EDT Narrative 03/16/2025 2:41 PM EDT [address] [address] Magnetic Resonance Report Signed Patient: Gallo Saini MR#: [id number] [id number] : 1970 Acct:[id number] Age/Sex: 54 / M ADM Date: 03/16/25 Loc: .S3 358-[address]: Yesica Neri MD Ordering Physician: Miranda Mg [facility] Date of Service: 03/16/25 Procedure(s): MR lumbar spine wo/w con Accession Number(s): [id number] cc: Miranda MgARSEN; Milena Shoemaker MD Reason for Exam: rule out spinal abscess, severe pain with hx of th CLINICAL HISTORY: rule out spinal abscess, severe pain with hx of th MR lumbar spine with and without gadolinium Comparison: None Findings: No scoliosis or spondylolisthesis. No acute fracture or pathologic bone lesion. Cauda equina and conus medullaris within normal limits. Lesions in the L3 and L4 vertebral bodies, possible hemangiomata. There is no imaging findings to suggest discitis or osteomyelitis. There are no focal areas of increased or decreased enhancement and no collections to suggest developing abscess. No significant degenerative change. No stenoses. Paraspinous musculature intact. IMPRESSION: No acute findings. This document has been electronically signed by: Robe Wilson MD on 03/16/2025 14:40:21 Dictated By: Robe Wilson MD Signed By: <Electronically signed by Robe Wilson MD in OV> 03/16/25 1440 DD/ 1440 TD/TT: 03/16/25 144 Wedding Day Coordinator: Procedure Note Donotuseinterpreter, Image - 03/16/[address] [address] Magnetic Resonance Report Signed Patient: Gallo SainiMR#: [id number] 889 : 1970Acct:[id number] Age/Sex: 54 / MADM Date: 03/16/25 Loc: HO.S3 358-[address]: Yesica Neri MD Ordering Physician: Miranda Mg [facility] Date of Service: 03/16/25 Procedure(s): MR lumbar spine wo/w con Accession Number(s): [id number] cc: Miranda Mg [facility]; Milena Shoemaker MD Reason for Exam: rule out spinal abscess, severe pain with hx of th CLINICAL HISTORY: rule out spinal abscess, severe pain with hx of th MR lumbar spine with and without gadolinium Comparison: None Findings: No scoliosis or spondylolisthesis. No acute fracture or pathologic bone lesion. Cauda equina and conus medullaris within normal limits. Lesions in the L3 and L4 vertebral bodies, possible hemangiomata. There is no imaging findings to suggest discitis or osteomyelitis. There are no focal areas of increased or decreased enhancement and no collections to suggest developing abscess. No significant degenerative change. No stenoses. Paraspinous musculature intact. IMPRESSION: No acute findings. This document has been electronically signed by: Robe Wilson MD on 03/16/2025 14:40:21 Dictated By: Robe Wilson MD Signed By: <Electronically signed by Robe Wilson MD in OV> 03/16/25 1440 DD/ 1440 TD/TT: 03/16/25 1440 Wedding Day Coordinator: us [facility] External Provider IMG MRI PROCEDURES Edited Result - Final * US VENOUS DUPLEX LE RT (03/16/2025 8:21 AM EDT) Anatomical Region Laterality Modality Abdomen Ultrasound 03/16/2025 8:21 AM EDT Narrative 03/16/2025 8:23 AM EDT [address] [address] Ultrasound Report Signed Patient: Gallo Saini MR#: [id number] [id number] : 1970 Acct:[id number] Age/Sex: 54 / M ADM Date: 03/16/25 Loc: HO.S3 358-[address]: Yesica Neri MD [facility] Service: 03/16/25 Procedure(s): US venous duplex LE RT Accession Number(s): [id number] [facility]; Milena Shoemaker MD Reason for Exam: rule out DVT, edema, posiitve homans CLINICAL HISTORY: rule out DVT, edema, posiitve homans --- Additional Notes or Special Instructions: Talked to provider, not urgent, can be done at 0700. [phone] Venous duplex ultrasound right lower extremity Comparison: None provided Findings: The visualized deep veins are fully compressible with normal Doppler color flow and spectral tracings. No popliteal cyst. Posterior tibial and peroneal veins not well seen secondary to significant calf edema. IMPRESSION: 1. Negative for right lower extremity deep vein thrombosis. This document has been electronically signed by: Katie Fernandez MD on 03/16/2025 08:21:59 Dictated By: Katie Fernandez MD Signed By: <Electronically signed by Katie Fernandez MD in OV> 03/16/25821 DD/ 0 TD/TT: 03/16/25820 Wedding Day Coordinator: Procedure Note Donotlaurater, Image - 03/16/2025 [place] [address] Ultrasound Report Signed Patient: Gallo SainiMR#: [id number] 889 : 1970Acct:[id number] Age/Sex: 54 / MADM Date: 03/16/25 Loc: .S3 358-[address]: Yesica Neri MD Ordering Physician: Miranda Mg [facility] Date of Service: 03/16/25 Procedure(s): US venous duplex LE RT Accession Number(s): [id number] cc: Miranda Mg [facility]; Milena Shoemaker MD Reason for Exam: rule out DVT, edema, posiitve homans CLINICAL HISTORY: rule out DVT, edema, posiitve homans --- AdditionalNotes or Special Instructions: Talked to provider, not urgent, can be done at 0700. [phone] Venous duplex ultrasound right lower extremity Comparison: None provided Findings: The visualized deep veins are fully compressible with normal Doppler color flow and spectral tracings. No popliteal cyst. Posterior tibial and peroneal veins not well seen secondary to significant calf edema. IMPRESSION: 1. Negative for right lower extremity deep vein thrombosis. This document has been electronically signed by: Katie Fernandez MD on 03/16/2025 08:21:59 Dictated By: Katie Fernandez MD Signed By: <Electronically signed by Katie Fernandez MD in OV> 03/16/25821 DD/ 0 TD/TT: 03/16/25820 Wedding Day Coordinator: us [facility] External Provider IMG US PROCEDURES Edited Result - Final * XR Foot 3+ Views Right (03/16/2025 2:35 AM EDT) Anatomical Region Laterality Modality Lower Extremities, Foot Right Radiogra phic Imaging 03/16/2025 2:35 AM EDT Narrative 03/16/2025 2:37 AM EDT [place] [address] XRay Report Signed Patient: Gallo Saini MR#: [id number] 889 : 1970 Acct:[id number] Age/Sex: 54 / M ADM Date: 03/16/25 Loc: HO.ED Attending Dr: Ordering Physician: Concha Singer Date of Service: 03/16/25 Procedure(s): XR foot RT min 3V Accession Number(s): [id number] cc: Concha Singer; Milena Shoemaker MD Reason for Exam: right great toe wound diabetic CLINICAL HISTORY: right great toe wound diabetic --- Additional Notes or Special Instructions: r o osteo 3 view right foot Comparison: DX/SR - XR FOOT RT MIN 3V - 04/26/2024 12:58 PM EST Findings: Talus and subtalar articulations are normal. Calcaneus is normal. Moderate talonavicular degenerative change . Severe joint space narrowing between the navicular and cuneiforms with erosive changes. There is soft tissue stranding. Calcaneocuboid alignment is normal. Metatarsophalangeal articulations are normally aligned. There is diffuse swelling of the 1st digit. Irregular changes at the distal phalanx tuft may represent sequelae of infection. No abnormal soft tissue calcification. Remainder of phalanges and metatarsals are normal. IMPRESSION: 1. First digit distal tuft irregularity may represent sequelae of infection or osteomyelitis. 2. Severe degenerative changes at the navicular with erosions and marginal osteophytes. This may represent degenerative change, inflammation, or sequelae of infection. This document has been electronically signed by: Jamar Wilhelm III, MD PHD on 03/16/2025 02:35:27 Dictated By: Jamar Wilhelm MD Signed By: <Electronically signed by Jamar Wilhelm MD in OV> 03/16/25235 DD/ 4 TD/TT: 03/16/25234 Wedding Day Coordinator: Procedure Note Donotuseinterpreter, Image - 03/16/[address] [address] XRay Report Signed Patient: Gallo SainiMR#: [id number] 889 : 1970Acct:[id number] Age/Sex: 54 / MADM Date: 03/16/25 Loc: .ED Attending Dr: Ordering Physician: Concha Singer Date of Service: 03/16/25 Procedure(s): XR foot RT min 3V Accession Number(s): [id number] cc: Concha Singer; Milena Shoemaker MD Reason for Exam: right great toe wound diabetic CLINICAL HISTORY: right great toe wound diabetic --- Additional Notes orSpecial Instructions: r o osteo 3 view right foot Comparison: DX/SR - XR FOOT RT MIN 3V - 04/26/2024 12:58 PM EST Findings: Talus and subtalar articulations are normal. Calcaneus is normal. Moderate talonavicular degenerative change . Severe joint space narrowing between the navicular and cuneiforms with erosive changes. There is soft tissue stranding. Calcaneocuboid alignment is normal. Metatarsophalangeal articulations are normally aligned. There is diffuse swelling of the 1st digit. Irregular changes at the distal phalanx tuft may represent sequelae of infection. No abnormal soft tissue calcification. Remainder of phalanges and metatarsals are normal. IMPRESSION: 1. First digit distal tuft irregularity may represent sequelae of infection or osteomyelitis. 2. Severe degenerative changes at the navicular with erosions and marginal osteophytes. This may represent degenerative change, inflammation, or sequelae of infection. This document has been electronically signed by: Jamar Wilhelm III, MD PHD on 03/16/2025 02:35:27 Dictated By: Jamar Wilhelm MD Signed By: <Electronically signed by Jamar Wilhelm MD in OV> 03/16/25235 DD/ 4 TD/TT: 03/16/25234 Wedding Day Coordinator: [facility] External Provider IMG XR PROCEDURES Edited Result - Final * (ABNORMAL) Glucose, Whole Blood (03/16/2025 2:19 AM EDT) Glucose, Whole Blood 340(H) 60 - 115 mg/dL [facility] Comment:METER #: [id number] 03/16/2025 2:19 AM EDT 03/16/2025 2:23 AM EDT Generic External Data Provider LAB BLOOD ORDERAB LES Final Result Performing Organization Address [facility] Co de Phone Number [facility] [address] [place] [phone] * Creatinine, Random Urine (06/25/2024 3:06 PM EST) Creatinine, Urine 78.85 mg/dL [facility] 06/25/2024 3:06 PM EST 06/25/2024 3:41 PM EST Generic External Data Provider LAB URINE ORDERAB LES Final Result Performing Organization Address [facility] Co de Phone Number [facility] [address] [place] [phone] [phone] * Lipid Panel, Standard (07/16/2022 10:33 AM EST) Cholesterol, Total 115 <200 mg/dL [employer] [place] [employer] HDL Cholesterol 42 > OR = 40 mg/dL [employer] [place] [employer] Triglycerides 106 <150 mg/dL [employer] [place] [employer] LDL Cholesterol 54 mg/dL (calc) [employer] [place] [employer] Comment: Reference range: <100 Desirable range <100 mg/dL for primary prevention; <70 mg/dL for patients with CHD or diabetic patients with > or = 2 CHD risk factors. LDL-C is now calculated using the Silvana calculation, which is a validated novel method providing better accuracy than the Friedewald equation in the estimation of LDL-C. Alvino SS et al. KIRSTEN. 2013;310(19): 2015-8664 (http://education.Yap/faq/VNW936) Chol/HDLC Ratio 2.7 <5.0 (calc) [employer] [place] [employer] Non-HDL Cholesterol 73 <130 mg/dL (calc) [employer] [place] [employer] Comment: For patients with diabetes plus 1 [...] BLOOD ORDERABLES Final Re sult [facility] [address] [facility] [facility] [place] [address] [employer] [place] [employer] [address] [facility] [facility] [address], ([address]) [place] [address] from Last 3 Months or Most Recently Relevant to Health Maintenance Additional Health Concerns Active Problems Noted Date [...] neuropathy 04/30/2025 Patient has diabetic neuropathy 04/30/2025 Insurance MEDICARE [facility] STAND AD[place] Care Teams Hotel [employer] Motel Cleaning Supervisor Relationship Specialty Start Date End Date Milena Shoemaker MD [address] [place] [address] PCP - General Family Medicine 08/12/22 Dana Damon PharmD [address] [place] [address] Pharmacist Pharmacy 04/15/25 Maria G Sellers CNP Psychiatrist 02/23[facility] 03/24/[facility]
--- OUTSIDE RECORDS SUMMARY | 2025-05-15 18:17 | XMS_ITS | Encounter Summary ---
Author Organization [employer] Address [address] [facility] [address] [place] [address] Care Team Providers Care Assembly Cleaner Name Role Phone Milena Shoemaker MD Primary Care Provider [phone] Dana Damon PharmD Unavailable [phone] Dana Damon PharmD Unavailable [phone] Encounter Details Date Type Department Care Team ([facility] st Contact Info) Description 09/18/[address] [facility] [address], [place] [phone] Johanna Camargo MD [address] [place] [address] Social History Tobacco Use Types Packs/Day Years [...] [facility] [address] [place] [address] Dana Damon PharmD [address] [place] [address] 05/27/2025 10:00 AM EST Office Visit [facility] [address] [place] [address] Milena Shoemaker MD [address] [place] [address] 06/05/2025 9:30 AM EST Clinical Support [facility] [address] [place] [address] Luma Dalton, LUIS [address] [place] [address] documented as of this encounter Visit Diagnoses Not on filedocumented in this encounter Additional Health Concerns Assessment Noted Time PHQ-9 Depression Total Score: 7 07/15/19 23 1:17 PM EST documented as of this encounter Care Teams Assembly Cleaner Relationship Specialty Start Date End Date Milena Shoemaker MD [address] [place] [address] PCP - General Family Medicine 08/12/22 Dana Damon PharmD [address] [place] [address] Pharmacist Pharmacy 04/15/25 Dana Damon, Jovita [address] [place] [address] Pharmacist Pharmacy 04/15/25 04/15/25 Maria G Sellers CNP Psychiatrist 02/23/23 [facility] 03/24/25 documented as of this encounter
--- OUTSIDE RECORDS SUMMARY | 2025-05-15 18:17 | XMS_ITS | Encounter Summary ---
Author Organization [employer] Address [address] [facility] [address] [place] [address] Care Team Providers Care Aerodynamics Engineer Name Role Phone Milena Shoemaker MD Primary Care Provider [phone] Dana Damon PharmD Unavailable [phone] Dana Damon PharmD Unavailable [phone] Reason for Visit * Reason Onset Date Comments Med Refill 10/03/2024 Encounter Details Date Type Department Care Team ([facility] st Contact Info) Description 10/03/2024 Refill [facility] [address] [place] [address] Milena Shoemaker MD [address] [place] [address] Diabetic polyneuropathy associated with type 2 diabetes [...] [facility] [address] [place] [address] Dana Damon PharmD [address] [place] [address] 05/27/2025 10:00 AM EST Office Visit [facility] [address] [place] [address] Milena Shoemaker MD [address] [place] [address] 06/05/2025 9:30 AM EST Clinical Support [facility] [address] [place] [address] Luma Dalton, LUIS [address] [place] [address] documented as of this encounter Visit Diagnoses Diagnosis Diabetic polyneuropathy associated with type 2 diabetes mellitus (HCC) documented in this encounter Additional Health Concerns Assessment Noted Time PHQ-9 Depression Total Score: 7 07/15/19 23 1:17 PM EST documented as of this encounter Care Teams Aerodynamics Engineer Relationship Specialty Start Date End Date Milena Shoemaker MD [address] [place] [address] PCP - General Family Medicine 08/12/22 Dana Damon, PharmD [address] [place] [address] Pharmacist Pharmacy 04/15/25 Dana Damon, Jovita [address] [place] [address] Pharmacist Pharmacy 04/15/25 04/15/25 Maria G Sellers CNP Psychiatrist 02/23/23 [facility] 03/24/25 documented as of this encounter
--- OUTSIDE RECORDS SUMMARY | 2025-05-15 18:17 | XMS_ITS | Encounter Summary ---
Author Organization [employer] Address [address] [facility] [address] [place] [address] Care Team Providers Care Hat Conditioner Name Role Phone Milena Shoemaker MD Primary Care Provider [phone] Dana Damon PharmD Unavailable [phone] Dana Damon PharmD Unavailable [phone] Reason for Visit * Reason Onset Date Comments Med Refill 10/15/2024 Encounter Details Date Type Department Care Team ([facility] st Contact Info) Description 10/15/2024 Refill [facility] P[facility] [address] [place], [place] [phone] Sowmya Duron FNP [address] [place], [place] [phone] Asthma, unspecified asthma severity, unspecified whether complicated, [...] 10:30 AM EST Medication Management [facility] P[facility] [address] [place] [address] Dana Damon PharmD [address] [place] [address] 05/27/2025 10:00 AM EST Office Visit [facility] [address] [place] [address] Mliena Shoemaker MD [address] [place] [address] 06/05/2025 9:30 AM EST Clinical Support [facility] [address] [place] [address] Luma Dalton, LUIS [address] [place] [address] documented as of this encounter Visit Diagnoses Diagnosis Asthma, unspecified asthma severity, unspecified whether complicated, unspecified whether persistent documented in this encounter Additional Health Concerns Assessment Noted Time PHQ-9 Depression Total Score: 7 07/15/19 23 1:17 PM EST documented as of this encounter Care Teams Hat Conditioner Relationship Specialty Start Date End Date Milena Shoemaker MD [address] [place] [address] PCP - General Family Medicine 08/12/22 Dana Damon, PharmD [address] [place] [address] Pharmacist Pharmacy 04/15/25 Dana Damon, Jovita [address] [place] [address] Pharmacist Pharmacy 04/15/25 04/15/25 Maria G Sellers CNP Psychiatrist 02/23/23 [place] [facility] 03/24/25 documented as of this encounter
--- OUTSIDE RECORDS SUMMARY | 2025-05-15 18:17 | XMS_ITS | Clinical Summary ---
Author Organization [facility] Address [address] [place] [address] Care Team Providers Care Brick Tester Name Role Phone Milena Shoemaker MD Primary Care Provider [phone] Allergies Active Allergy Reactions Criticality Noted Date [...] drink = 0.6 oz pur e alcohol) [facility] Utilities Answer Date Recorded In the past 12 months has th e [employer], oil, or water [employer] threatened to shut off services in your [...] place to sleep or slept in a mcc (including now)? No 08/31/2023 Sex and Gender [...] of 2 - PCV) 11/22/1991 Colonoscopy 2017 RSV Vaccine 50 years and old er and Patients (1 - Risk 50-74 years 1-dose series) 2022 Zoster (Shingles) Vaccine (1 of 2) 2022 [...] - 99 mg/dL 09/16/2023 5:57 AM EDT [facility] Comment:Fasting: <100 mg/dL, Non-Fasting: <200 mg/dL (ADA 2005) Blood Urea Nitrogen (BUN) 23(H) 8 - 21 mg/dL 09/16/2023 5:57 AM EDT [facility] Creatinine 1.2 0.5 - 1.3 mg/dL 09/16/2023 5:57 AM EDT [facility] eGFR 74 >59 09/16/2023 5:57 AM EDT [facility] Comment:CKD-EPI (2020) in mL /min/1.73 sq meters. Sodium 138 136 - 145 mmol/L 09/16/2023 5:57 AM EDT [facility] Potassium 3.8 3.4 - 5.3 mmol/L 09/16/2023 5:57 AM EDT [facility] Chloride 101 98 - 107 mmol/L 09/16/2023 5:57 AM EDT [facility] CO2 27 22 - 33 mmol/L 09/16/2023 5:57 AM EDT [facility] Anion Gap 10 7 - 17 09/16/2023 5:57 AM EDT [facility] Calcium 8.8 8.7 - 10.5 mg/dL 09/16/2023 5:57 AM EDT [facility] BUN/Creatinine Ratio 19 10.0 - 25.0 Ratio 09/16/2023 5:57 AM EDT [facility] Blood specimen (specimen) (Plasma/Serum) 09/16/2023 5:08 AM EDT 09/16/2023 5:32 AM EDT Yareli Mccoy MD LAB BLOOD ORDERABLES [place] [address], [place] [address] from Last 3 Months or Most Recently Relevant to Health Maintenance Insurance MEDICARE PART A & B [facility] MEDICARE PART A & B [facility] Advance Directives * Full Code (Latest Code Status on File) Date Activated Date Inactivated Comments 08/30/2023 11:42 PM Question Answer Comments Decision Thoroughly Discussed with: Patient Care Teams Brick Tester Relationship Specialty Start Date End Date Milena Shoemaker MD [address] [place] [id number] PCP - General Family Medicine 08/30/23
--- OUTSIDE RECORDS SUMMARY | 2025-05-15 18:17 | XMS_ITS | Encounter Summary ---
Author Organization [employer] Address [address] [facility] [address] [place] [address] Care Team Providers Care Catalytic Converter Operator Name Role Phone Milena Shoemaker MD Primary Care Provider Dana Damon PharmD Unavailable [phone] Dana Damon PharmD Unavailable [phone] Reason for Visit * Reason Onset Date Comments Med Refill 08/15/2024 Encounter Details Date Type Department Care Team ([facility] st Contact Info) Description 08/15/2024 Refill [facility] [address], [place] [phone] Avila Cee MD [address] [place], [place] [phone] Chronic midline low back pain without sciatica [...] 10:30 AM EST Medication Management [facility] [address] [place] [address] Dana Damon PharmD [address] [place] [address] 05/27/2025 10:00 AM EST Office Visit [facility] [address] [place] [address] Milena Shoemaker MD [address] [place] [address] 06/05/2025 9:30 AM EST Clinical Support [facility] [address] [place] [address] Luma Dalton, LUIS [address] [place] [address] documented as of this encounter Visit Diagnoses Diagnosis Chronic midline low back pain without sciatica documented in this encounter Additional Health Concerns Assessment Noted Time PHQ-9 Depression Total Score: 7 07/15/19 23 1:17 PM EST documented as of this encounter Care Teams Catalytic Converter Operator Relationship Specialty Start Date End Date Milena Shoemaker MD [address] [place] [address] PCP - General Family Medicine 08/12/22 Dana Damon, ChadD [address] [place] [address] Pharmacist Pharmacy 04/15/25 Dana Damon, Jovita [address] [place] [address] Pharmacist Pharmacy 04/15/25 04/15/25 Maria G Sellers CNP Psychiatrist 02/23/23 [facility] 03/24/25 documented as of this encounter
== END 2025-05-15 17:59 | disposition home or self-care (01) ==
PROVIDERS: Registered Nurse Emergency; Emergency Provider Emergency Medicine; PCP Family Medicine
DX: R07.89 Other chest pain (principal); I10 Essential (primary) hypertension; D64.9 Anemia, unspecified; N18.9 Chronic kidney disease, unspecified; E11.9 Type 2 diabetes mellitus without complications; J45.909 Unspecified asthma, uncomplicated; Z89.421 Acquired absence of other right toe(s); Z79.899 Other long term (current) drug therapy; Z72.0 Tobacco use; Z03.818 Encounter for observation for suspected exposure to other biological agents ruled out
CPT/HCPCS: 36415; 71046; 80053; 83735; 83880; 84484; 85025; 85610; 87637; 93005; 99283; 99285

== ENCOUNTER → 2025-05-15 14:40 | Outpatient (BNV) | payer MEDICARE, MEDICAID, SELFPAY | PROVIDERS: Emergency Provider Emergency Medicine; PCP Family Medicine; Visit Provider Internal Medicine | DX: R07.9 Chest pain, unspecified (principal) | CPT/HCPCS: 93010 ==

== ENCOUNTER → 2025-05-15 14:41 | Outpatient (BNV) | payer MEDICARE, MEDICAID, SELFPAY | PROVIDERS: Emergency Provider Emergency Medicine; PCP Family Medicine; Visit Provider Radiology Diagnostic Radiology | DX: R07.89 Other chest pain (principal) | CPT/HCPCS: 71046 ==

== ENCOUNTER 2025-05-27 11:14 | Outpatient (REF) | payer MEDICARE, MEDICAID, SELFPAY ==
[2025-05-27 14:32] LABS: MANUAL DIFF FLAG NO
[2025-05-27 14:40] LABS: Hematocrit 37.1 % (42.0-52.0); Hemoglobin 11.8 g/dl (14.0-18.0); Imm Gran Abs Auto 0.03 X10*3/uL (0.00-0.03); Imm Gran Pct Auto 0.3 % (0.0-0.4); Lymphocytes Absolute Auto 1.4 X10*3/uL (1.2-4.9); Mean Corpuscular HGB Conc 31.8 g/dl (31.0-36.0); Mean Corpuscular Hemoglobin 27.4 pg (27.0-33.0); Mean Corpuscular Volume 86.3 fL (80.0-98.0); NRBC Abs Auto 0.000 X10*3/uL (0.0-0.012); NRBC Pct Auto 0.0 /100WBC (0.0-0.2); Platelet Count 285 X10*3/uL (160-400); Red Blood Count 4.30 X10*6/uL (4.60-5.80); White Blood Count 9.7 X10*3/uL (4.8-10.8)
[2025-05-27 14:54] LABS: Anion Gap 13 (12-20)
[2025-05-27 14:59] LABS: Alanine Aminotransferase 26 U/L (0-40); Albumin Level 4.0 g/dL (3.5-5.0); Aspartate Amino Transferase 36 U/L (5-37); Blood Urea Nitrogen 23 mg/dL (9-16); Calcium 9.3 mg/dL (8.4-10.2); Carbon Dioxide 25 mmol/L (22-29); Chloride 102 mmol/L (96-108); Estimated Glomerular Filt Rate > 60; Potassium 4.4 mmol/L (3.3-5.1); Sodium 136 mmol/L (135-145); Total Protein 7.3 g/dL (6.5-8.0)
[2025-05-27 15:00] LABS: Alkaline Phosphatase 116 U/L (39-117); Cholesterol 100 mg/dL (<200); HDL Cholesterol 40 mg/dL (>40); Triglycerides 53 mg/dL (<150)
[2025-05-27 15:23] LABS: Procalcitonin 0.08 ng/mL
[2025-05-28 05:05] LABS: HIV Num 1 0.07 S/CO (0.00-0.99); ~HepC Num1 0.45 S/CO (0.00-0.79); ~Hepatitis C Antibody Nonreactive (Nonreactive)
== END 2025-05-27 11:15 | disposition home or self-care (01) ==
LOC: HO.CHCLDS 11:14
PROVIDERS: Visit Provider Family Medicine
DX: Z11.59 Encounter for screening for other viral diseases (principal); Z11.4 Encounter for screening for human immunodeficiency virus [HIV]; E11.65 Type 2 diabetes mellitus with hyperglycemia; A15.0 Tuberculosis of lung; J18.9 Pneumonia, unspecified organism; Z79.4 Long term (current) use of insulin
CPT/HCPCS: 36415; 80053; 80061; 84145; 84443; 85025; 86803; 87389